=== PATIENT | female | born 1940 | race Caucasian/White ===

== ENCOUNTER 2020-03-04 20:10 | Observation (INO) | payer MEDICARE, SELFPAY ==
[2020-03-05 04:03] VITALS: BMI 33.5
[2020-03-06 04:00] VITALS: BP 165/95; PULSE 56; RESP 18; TEMP 36.5; O2SAT 94
[2020-03-06] MEDS: Omeprazole 20 MG CAPSULE.DR PO (05:28)
[2020-03-06 08:00] VITALS: BP 196/74; PULSE 56; RESP 18; TEMP 36.6; O2SAT 90
[2020-03-06] MEDS: Nystatin Powder 15 GM BOTTLE 1 APPL TOPICAL (09:00)
[2020-03-06 09:05] LABS: Ammonia 28 umol/L (13-55)
[2020-03-06] MEDS: Doxycycline Hyclate 100 MG in 0.9 % Sodium Chloride 250 ML 250 MG IV (09:07)
[2020-03-06 09:09] VITALS: BP 182/80; PULSE 73
[2020-03-06] MEDS: Aspirin 81 MG TAB.CHEW PO (09:09)
[2020-03-06] MEDS: hydrALAZINE HCl 50 MG TABLET 100 MG PO (09:09)
[2020-03-06] MEDS: Sertraline HCL 100 MG TABLET PO (09:11)
[2020-03-06] MEDS: Pregabalin 50 MG CAPSULE PO ×2 (09:11→15:04)
[2020-03-06] MEDS: 0.9 % Sodium Chloride Flush 3 ML SYRINGE 2 ML IVFLUSH (09:11)
[2020-03-06 09:12] VITALS: BP 182/80; PULSE 73
[2020-03-06] MEDS: Amiodarone HCL 200 MG TABLET PO (09:12)
[2020-03-06] MEDS: Isosorbide Mononitrate 30 MG TAB.ER.24H PO (09:12)
[2020-03-06] MEDS: Apixaban 2.5 MG TABLET PO (09:13)
--- NOTE | 2020-03-06 09:18 | PM.DS ---
DS: Providers Provider Date of admission: 03/04/20 20:10 Primary care physician: Anthony Titus MD DS: Diagnosis Discharge Diagnosis (1) Cellulitis: Status: Acute (2) UTI (urinary tract infection): Status: Acute (3) Bicytopenia: Status: Acute (4) CKD (chronic kidney disease), stage IV: Status: Acute (5) Diabetes mellitus: Status: Acute (6) CAD (coronary artery disease): Status: Acute DS: Summary Hospital Course Hospital Course: patient was admitted for cellulitis of LLE and possible UTI. she was started on ceftriaxone And doxycycline. Patient's erythema improved. She was not septic during course. Urine culture grew mixed godwin. Patient will be discharged home on 5 more days of p.o. Ceftin. Patient was also noted to have chronic bicytopenia which has not been previously worked up. She will be referred to hematology. Time Spent with Patient Time attestation: Total time spent providing and/or coordinating discharge services: 35 minutes Time spent: Greater than 30 minutes Physical Exam Vital Signs and I&O and Narrative: Vital Signs and I&O: Vital Signs Temp 97.9 F 03/06/20 08:00 Pulse 73 03/06/20 09:12 Resp 18 03/06/20 08:00 BP 182/80 H 03/06/20 09:12 Pulse Ox 90 L 03/06/20 08:00 Intake & Output 03/05/20 03/06/20 03/06/20 18:59 06:59 18:59 Output Total 400 / 400 Balance -400 / -400 Urine Output (Aver age ml/kg/hr) 0.46 Output: Output, Urine Am ount 400 / 400 Other: Urine purewick Urine Color Yellow Body Mass Index 33.5 Const: General: cooperative Resp: Auscultation: clear to auscultation bilaterally Cardio: Heart sounds: S1 normal heart sound present and S2 normal heart sound present DS: Data Data Completed and Pending Labs on day of discharge: Labs from last 24 hours 03/06/20 03/06/20 03/06/20 06:00 06:00 06:00 WBC Not Rcvd RBC Not Rcvd Hgb Not Rcvd Hct Not Rcvd MCV Not Rcvd MCH Not Rcvd MCHC Not Rcvd RDW Coeff of [place]cad[place] Not Rcvd Plt Count Not Rcvd MPV Not Rcvd Immature Gran % (Auto) Neut % (Auto) Lymph % (Auto) [place] % (Auto) Eos % (Auto) Baso % (Auto) Abs Immat Gran (auto) Absolute Lymphs (auto) Absolute Monos (auto) Absolute Eos (auto) Absolute Basos (auto) Absolute Nucleated RBC Not Rcvd Nucleated RBC % (auto) Not Rcvd Absolute Neutrophils Smear Tech's Comments PT INR APTT Sodium Not Rcvd Potassium Not Rcvd Chloride Not Rcvd Bicarbonate Not Rcvd Anion Gap Not Rcvd BUN Not Rcvd Creatinine Not Rcvd Estimated Creat Clear Not Rcvd Est GFR (Non-Af Amer) Not Rcvd POC Glucose Random Glucose Fasting Glucose Not Rcvd Lactic Acid Calcium Not Rcvd Magnesium Total Bilirubin Direct Bilirubin AST ALT Alkaline Phosphatase Ammonia Not Rcvd B-Natriuretic Peptide Total Protein Albumin Lipase Urine Color Urine Appearance Urine pH Ur Specific [place] Urine Protein Urine Glucose (UA) Urine Ketones Urine Blood Urine Nitrite Urine WBC (Auto) Urine RBC Urine WBC Ur Epithelial Cells Urine Crystals Urine Bacteria 03/05/20 03/05/20 03/05/20 21:14 16:26 09:18 WBC RBC Hgb Hct MCV MCH MCHC RDW Coeff of [place] Plt Count MPV Immature Gran % (Auto) Neut % (Auto) Lymph % (Auto) [place] % (Auto) Eos % (Auto) Baso % (Auto) Abs Immat Gran (auto) Absolute Lymphs (auto) Absolute Monos (auto) Absolute Eos (auto) Absolute Basos (auto) Absolute Nucleated RBC Nucleated RBC % (auto) Absolute Neutrophils Smear Tech's Comments PT INR APTT Sodium Potassium Chloride Bicarbonate Anion Gap BUN Creatinine Estimated Creat Clear Est GFR (Non-Af Amer) POC Glucose 115 106 117 H Random Glucose Fasting Glucose Lactic Acid Calcium Magnesium Total Bilirubin Direct Bilirubin AST ALT Alkaline Phosphatase Ammonia B-Natriuretic Peptide Total Protein Albumin Lipase Urine Color Urine Appearance Urine pH Ur Specific [place] Urine Protein Urine Glucose (UA) Urine Ketones Urine Blood Urine Nitrite Urine WBC (Auto) Urine RBC Urine WBC Ur Epithelial Cells Urine Crystals Urine Bacteria 03/05/20 03/05/20 03/04/20 05:42 05:42 21:01 WBC 5.8 RBC 2.78 L Hgb 8.0 L Hct 26.3 L MCV 94.6 MCH 28.8 MCHC 30.4 L RDW Coeff of [place]cadio 16.5 H Plt Count 97 L MPV 12.3 Immature Gran % (Auto) 0.5 H Neut % (Auto) 77.2 H Lymph % (Auto) 10.2 L [place] % (Auto) 10.4 Eos % (Auto) 1.4 Baso % (Auto) 0.3 Abs Immat Gran (auto) 0.03 Absolute Lymphs (auto) 0.6 L Absolute Monos (auto) 0.6 Absolute Eos (auto) 0.1 Absolute Basos (auto) 0.0 Absolute Nucleated RBC 0.000 Nucleated RBC % (auto) 0.0 Absolute Neutrophils 4.5 Smear Tech's Comments VERIFIED PT INR APTT Sodium 142 Potassium 3.8 Chloride 108 Bicarbonate 29 Anion Gap 9 L BUN 31 H Creatinine 1.74 H Estimated Creat Clear 22.9 Est GFR (Non-Af Amer) 28 POC Glucose 100 Random Glucose Fasting Glucose 94 Lactic Acid Calcium 8.2 L D Magnesium Total Bilirubin Direct Bilirubin AST ALT Alkaline Phosphatase Ammonia B-Natriuretic Peptide Total Protein Albumin Lipase Urine Color Urine Appearance Urine pH Ur Specific [place] Urine Protein Urine Glucose (UA) Urine Ketones Urine Blood Urine Nitrite Urine WBC (Auto) Urine RBC Urine WBC Ur Epithelial Cells Urine Crystals Urine Bacteria 03/04/20 03/04/20 03/04/20 18:27 16:17 16:17 WBC RBC Hgb Hct MCV MCH MCHC RDW Coeff of [place]cad[place] Plt Count MPV Immature Gran % (Auto) Neut % (Auto) Lymph % (Auto) [place] % (Auto) Eos % (Auto) Baso % (Auto) Abs Immat Gran (auto) Absolute Lymphs (auto) Absolute Monos (auto) Absolute Eos (auto) Absolute Basos (auto) Absolute Nucleated RBC Nucleated RBC % (auto) Absolute Neutrophils Smear Tech's Comments PT 14.3 H INR 1.2 H APTT 39.0 H Sodium Potassium Chloride Bicarbonate Anion Gap BUN Creatinine Estimated Creat Clear Est GFR (Non-Af Amer) POC Glucose Random Glucose Fasting Glucose Lactic Acid Calcium Magnesium Total Bilirubin Direct Bilirubin AST ALT Alkaline Phosphatase Ammonia B-Natriuretic Peptide 233 H Total Protein Albumin Lipase Urine Color YELLOW Urine Appearance CLEAR Urine pH 7.5 Ur Specific [place] 1.015 Urine Protein NEG Urine Glucose (UA) NEG Urine Ketones NEG Urine Blood NEG Urine Nitrite POS H Urine WBC (Auto) 2+ H Urine RBC 1-4 Urine WBC 10-14 H Ur Epithelial Cells 2+ Urine Crystals TRIPLE PHOSPHATE 2+ Urine Bacteria 2+ 03/04/20 03/04/20 03/04/20 16:17 16:17 16:17 WBC 6.3 RBC 3.22 L Hgb 9.2 L Hct 31.2 L MCV 96.9 MCH 28.6 MCHC 29.5 L RDW Coeff of [place]cadio 16.5 H Plt Count 101 L MPV 11.6 Immature Gran % (Auto) 1.0 H Neut % (Auto) 73.8 H Lymph % (Auto) 13.0 L [place] % (Auto) 10.5 Eos % (Auto) 1.4 Baso % (Auto) 0.3 Abs Immat Gran (auto) 0.06 H Absolute Lymphs (auto) 0.8 L Absolute Monos (auto) 0.7 Absolute Eos (auto) 0.1 Absolute Basos (auto) 0.0 Absolute Nucleated RBC 0.000 Nucleated RBC % (auto) 0.0 Absolute Neutrophils 4.6 Smear Tech's Comments PT INR APTT Sodium 143 Potassium 4.2 Chloride 107 Bicarbonate 31 H Anion Gap 9 L BUN 34 H Creatinine 1.83 H Estimated Creat Clear 21.8 Est GFR (Non-Af Amer) 27 POC Glucose Random Glucose 93 Fasting Glucose Lactic Acid 0.7 Calcium Magnesium 2.4 Total Bilirubin 0.5 Direct Bilirubin 0.3 AST 76 H ALT 144 H Alkaline Phosphatase 84 Ammonia B-Natriuretic Peptide Total Protein 6.1 L Albumin 3.4 L Lipase 69 Urine Color Urine Appearance Urine pH Ur Specific [place] Urine Protein Urine Glucose (UA) Urine Ketones Urine Blood Urine Nitrite Urine WBC (Auto) Urine RBC Urine WBC Ur Epithelial Cells Urine Crystals Urine Bacteria Discharge Plan Discharge Anticipated Discharge Date/Time: 03/06/20 09:09 Patient Disposition: Home Health Service Referrals: [facility] [Outside] Anthony Titus MD [Primary Care Provider] - Michelle Sawyer MD [Physician] - 2 Weeks (bicytopenia) Discharge Medications: New cefuroxime axetil 500 mg tablet 500 mg PO BID Qty: 10 RF: 0 Continued acetaminophen 650 mg Tablet 650 mg PO Q4H PRN (Reason: Headache) RF: 0 albuterol sulfate [ProAir HFA] 90 mcg/actuation Hfa Aerosol Inhaler 2 puff INHALATION Q4H PRN (Reason: Wheezing) RF: 0 amiodarone [Pacerone] 200 mg Tablet 200 mg PO DAILY RF: 0 Eliquis 2.5 mg Tablet 2.5 mg PO BID RF: 0 aspirin 81 mg Tablet,Chewable 81 mg PO DAILY RF: 0 atorvastatin [Lipitor] 20 mg Tablet 20 mg PO BEDTIME RF: 0 calcitriol 0.25 mcg Capsule 0.25 mcg PO 3XW RF: 0 cholecalciferol (vitamin D3) 50 mcg (2,000 unit) Capsule 2,000 unit PO DAILY RF: 0 ferrous sulfate [Feosol] 325 mg (65 mg iron) Tablet 325 mg PO DAILY RF: 0 fluticasone propionate 110 mcg/actuation Hfa Aerosol Inhaler 2 puff INHALATION BID RF: 0 hydralazine 100 mg Tablet 100 mg PO BID RF: 0 isosorbide mononitrate 30 mg PO DAILY RF: 0 meclizine 12.5 mg Tablet 25 mg PO DAILY PRN (Reason: Dizziness) RF: 0 memantine [Namenda XR] 21 mg Capsule,Sprinkle,Er 24hr 21 mg PO DAILY RF: 0 nitrofurantoin macrocrystal [Macrodantin] 100 mg Capsule 100 mg PO BEDTIME RF: 0 nitroglycerin [Nitrostat] 0.3 mg Tablet, Sublingual 0.3 mg SUBLINGUAL Q5M PRN (Reason: Chest Pain) RF: 0 omeprazole 20 mg Capsule,Delayed Release(Dr/Ec) 20 mg PO DAILY RF: 0 pregabalin [Lyrica] 50 mg Capsule 50 mg PO TID RF: 0 rivastigmine tartrate 6 mg Capsule 6 mg PO BID RF: 0 sennosides [senna] 8.6 mg Tablet 8.6 mg PO BEDTIME RF: 0 sertraline 100 mg Tablet 100 mg PO DAILY RF: 0 Spiriva with HandiHaler 18 mcg Capsule, W/Inhalation Device 1 cap INHALATION DAILY RF: 0 Discharge Orders: Discharge Order (Routine); Ordered 03/06/20 Ordered By: Cl Mckinney Diet: advance to your usual diet Activity on Discharge: As tolerated Visit Report Forms: Patient Portal Discharge page Care Plan Goals: recovery Health Concerns: recent tavr, cellulitis, uti Plan of Treatment: ceftin for 5 days, follow up with hematology and cardiology
[2020-03-06 09:20] LABS: Glucose, Whole Blood 83 mg/dL (60-115)
--- NOTE | 2020-03-06 09:55 | MHC.CM.PN ---
Patient is being discharged home today with resumption of services from [facility]. Family will provide transpport.
[2020-03-06 10:06] LABS: Anion Gap 9 (12-20); Blood Urea Nitrogen 29 mg/dL (9-16); Calcium 8.5 mg/dL (8.4-10.2); Carbon Dioxide 31 mmol/L (22-29); Chloride 108 mmol/L (96-108); Creatinine Clr Calc Pharmacy 21.1; Estimated Glomerular Filt Rate 26; Glucose Fasting 82 mg/dL (60-99); Potassium 4.3 mmol/l (3.3-5.1); Sodium 144 mmol/L (135-145)
[2020-03-06 10:33] LABS: Hemoglobin 8.7 g/dl (12.0-16.0); PLT CLUMP 1
[2020-03-06 10:36] LABS: Hematocrit 29.1 % (37-47); Mean Corpuscular HGB Conc 29.9 g/dl (31.0-35.0); Mean Corpuscular Hemoglobin 28.7 pg (27.0-33.0); Mean Platelet Volume 11.5 fL (9.4-12.3); Red Blood Count 3.03 X10*6/uL (4.20-5.50); Red Cell Distribution Width 16.6 % (11.0-16.0); White Blood Count 6.2 X10*3/uL (4.8-10.8)
[2020-03-06 10:37] LABS: Platelet Count 87 X10*3/uL (160-400)
[2020-03-06 11:19] LABS: Glucose, Whole Blood 123 mg/dL (60-115)
[2020-03-06 11:59] VITALS: BP 178/68; PULSE 57; RESP 18; TEMP 36.6; O2SAT 96
== END 2020-03-06 16:45 | disposition home health service (06) ==
PROVIDERS: Admitting Provider Internal Medicine; Emergency Provider Physician Assistant; PCP Internal Medicine; Visit Provider Internal Medicine
DX: L03.116 Cellulitis of left lower limb (principal); N39.0 Urinary tract infection, site not specified; M79.605 Pain in left leg; E11.22 Type 2 diabetes mellitus with diabetic chronic kidney disease; I13.0 Hypertensive heart and chronic kidney disease with heart failure and stage 1 through stage 4 chronic kidney disease, or unspecified chronic kidney disease; I50.9 Heart failure, unspecified; N18.4 Chronic kidney disease, stage 4 (severe); D61.818 Other pancytopenia; I25.10 Atherosclerotic heart disease of native coronary artery without angina pectoris; I48.91 Unspecified atrial fibrillation; K21.9 Gastro-esophageal reflux disease without esophagitis; Z23 Encounter for immunization; Z95.2 Presence of prosthetic heart valve; Z79.01 Long term (current) use of anticoagulants; Z79.02 Long term (current) use of antithrombotics/antiplatelets; Z79.82 Long term (current) use of aspirin; Z79.899 Other long term (current) drug therapy
CPT/HCPCS: 36415; 71046; 74176; 76705; 80048; 80051; 80076; 81001; 82140; 82565; 82947; 83605; 83690; 83735; 83880; 84520; 85025; 85027; 85610; 85730; 87040; 87088; 90471; 90686; 93005; 93970; 94664; 99219; 99285; J0696; J3370

== ENCOUNTER → 2020-03-10 12:05 | Outpatient (REF) | payer MEDICARE, SELFPAY ==
--- NOTE | 2020-03-10 13:00 | CA_ITS ---
Transthoracic Echocardiogram Patient (Last, First, Middle): Patricia York L Gender: Female Date of : 1940 Age: 79 Procedure Date: 03/10/2020 Procedure Type: Transthoracic Echocardiogram Location: OP Height: 149.86 cm Weight: 66.23 kg BSA: 1.61 m2 Heart Rate: bpm BP: 150 / 56 mmHg Microbiology Teacher: Avila MD: Lucia Kenny MD Symptoms: [facility] Study Quality: Fair Conclusions: - The left ventricular systolic function is normal. The visually estimated ejection fraction is between 60-65%. - Evidence suggests grade II (moderate) diastolic dysfunction. - The basal inferior segment is akinetic. - A bioprosthetic aortic valve is present. The prosthetic aortic valve appears to be functioning normally. The mean gradient is 23 mmHg. - Mild pulmonary hypertension is present. Findings Left Ventricle Normal left ventricular cavity size. There is mildly increased left ventricular wall thickness. The left ventricular systolic function is normal. The visually estimated ejection fraction is between 60-65%. There is no evidence of regional wall motion abnormalities. E/E prime ratio is >15, consistent with elevated filling pressures. Evidence suggests grade II (moderate) diastolic dysfunction. Wall Motion Rest Echo Findings The basal inferior segment is akinetic. Right Ventricle Normal right ventricular cavity size and systolic function. Atria The left atrium is severely dilated. The right atrium is normal in size. Aortic Valve A bioprosthetic aortic valve is present. The prosthetic aortic valve appears to be functioning normally. The mean gradient is 23 mmHg. There is no aortic valve regurgitation. Mitral Valve There is mild mitral annular calcification. There is trace mitral valve regurgitation. There is no mitral valve stenosis. Pulmonic Valve The pulmonic valve was not well visualized. There is trace pulmonic valve regurgitation. Tricuspid Valve Normal tricuspid valve structure. There is trace tricuspid valve regurgitation. The right ventricular systolic pressure is 42 mmHg. Mild pulmonary hypertension is present. Great Vessels The aortic annulus, sinuses of valsalva, and asc aorta are normal in size. Venous The inferior vena cava is normal in size and collapses greater than 50% with inspiration. Pericardium/Pleural There is no evidence of pericardial effusion. Prior Study Comparison Changes noted compared to prior study dated: 07/30/2019. s/p TAVR. Measurements 2D Linear Measurements RVIDd: 3.33 RVIDd Index: 2.07 IVSd: 1.26 0.6-0.9/0.6-1.0 cm LVIDd: 4.98 3.9-5.3/4.2-5.9 cm LVIDd Index: 3.09 2.4-3.2/2.2-3.1 cm/m2 LVIDs: 3.77 2.0-3.6 cm LVPWd: 1.08 0.7-1.1 cm Ao Root: 2.80 2.1-3.5 cm LA Diam: 4.60 2.7-3.8/3.0-4.0 cm LAIDs Index: 2.86 1.5-2.3 cm/m2 LV Mass: 279.47 67-162/88-224 g LV Mass Index: 173.58 43-95/49-115 g/m2 LVOT Diam: 2.00 3.0+(-)1.3 cm 2D Systolic Function EF 4C: 66.60 >55% EF 2C: 69.50 >55% EF BiP: 64.70 >55% Mitral Valve MV Pk E: 1.42 MV PK A: 1.14 MV Decel Time: 229.00 E/A: 1.20 E'Lateral: 9.57 E'Medial: 4.25 E/E' Med: 33.40 E/E' Lat: 14.80 PHT: 67.00 MVA PHT: 3.28 Decel [place]: 6.21 Aortic Valve AoV Pk Yovany: 3.49 AoV Mn Yovany: 2.67 AoV VTI: 0.88 Aov Mn Grad: 23.00 RADHA Cont.VTI: 1.19 LVOT LVOT Pk Yovany: 1.25 LVOT Mn Yovany: 0.91 LVOT VTI: 0.33 LVOT Pk Grad: 6.00 LVOT Mn Grad: 4.00 LVOT Diam: 2.00 LVOT Area: 3.14 Diastolic Function MV Pk E: 1.42 MV Pk A: 1.14 E/A: 1.20 E'Medial: 4.25 E/E' Med: 33.40 E' Laterial: 9.57 E/E' Lat: 14.80 Tricuspid Valve RA Press: 3.00 RVSP: 42.00 Great Vessels Aorta Ao Root-2D: 2.80 2.0-3.7 cm Ao Asc: 3.50 2.1-3.4 cm Ao Arch: 2.90 Updated in Other Vendor System with Status of Final John Bui MD electronically signed on 03/11/2020 4:28:31 PM with status of Final
== END ==
LOC: HO.CARD 12:05
PROVIDERS: PCP Internal Medicine; Visit Provider Internal Medicine Cardiovascular Disease
DX: Z95.2 Presence of prosthetic heart valve (principal)
CPT/HCPCS: 93306

== ENCOUNTER → 2020-04-17 15:17 | Outpatient (BNVA) | payer MEDICARE, SELFPAY | PROVIDERS: PCP Internal Medicine; Visit Provider Internal Medicine Cardiovascular Disease | DX: I50.30 Unspecified diastolic (congestive) heart failure (principal); Z95.2 Presence of prosthetic heart valve; I48.0 Paroxysmal atrial fibrillation; I25.10 Atherosclerotic heart disease of native coronary artery without angina pectoris; E11.22 Type 2 diabetes mellitus with diabetic chronic kidney disease; N18.4 Chronic kidney disease, stage 4 (severe); Z79.4 Long term (current) use of insulin; J44.9 Chronic obstructive pulmonary disease, unspecified | CPT/HCPCS: Q3014 ==

== ENCOUNTER → 2020-04-23 14:15 | Outpatient (BNVA) | payer MEDICARE, SELFPAY | PROVIDERS: PCP Internal Medicine; Visit Provider Orthopaedic Surgery | DX: M17.11 Unilateral primary osteoarthritis, right knee (principal); Z96.652 Presence of left artificial knee joint | CPT/HCPCS: 20610; 99212; J1040 ==

== ENCOUNTER 2020-05-08 10:17 | Outpatient (REF) | payer MEDICARE, SELFPAY | END 2020-05-08 10:18 | disposition home or self-care (01) | LOC: HO.LAB 10:17 | PROVIDERS: PCP Internal Medicine; Visit Provider Internal Medicine | DX: Z20.828 Contact with and (suspected) exposure to other viral communicable diseases (principal) | CPT/HCPCS: C9803; U0003 ==

== ENCOUNTER → 2020-06-10 14:47 | Outpatient (BNVA) | payer MEDICARE, SELFPAY | PROVIDERS: PCP Internal Medicine; Visit Provider Internal Medicine | DX: J44.9 Chronic obstructive pulmonary disease, unspecified (principal); J45.909 Unspecified asthma, uncomplicated | CPT/HCPCS: 99212 ==

== ENCOUNTER 2020-07-12 10:15 | Outpatient (REF) | payer MEDICARE, SELFPAY ==
[2020-07-12 11:14] LABS: Basophils Percent Auto 0.7 % (0-2); Eosinophils Absolute Auto 0.1 X10*3/uL (0.0-0.4); Eosinophils Percent Auto 0.9 % (0-4); Hematocrit 33.8 % (37-47); Hemoglobin 10.2 g/dl (12.0-16.0); Imm Gran Abs Auto 0.03 X10*3/uL (0.00-0.03); Imm Gran Pct Auto 0.5 % (0.0-0.4); Lymphocytes Absolute Auto 0.7 X10*3/uL (1.2-4.9); Lymphocytes Percent Auto 12.2 % (20-40); MANUAL DIFF FLAG SCAN; Mean Corpuscular HGB Conc 30.2 g/dl (31.0-35.0); Mean Corpuscular Hemoglobin 29.2 pg (27.0-33.0); Mean Corpuscular Volume 96.8 fL (80-98); Mean Platelet Volume 12.6 fL (9.4-12.3); Monocytes Absolute Auto 0.6 X10*3/uL (0.1-1.2); Monocytes Percent Auto 11.1 % (2-11); Neutrophils Absolute Auto 4.2 X10*3/uL (2.0-8.3); Neutrophils Percent Auto 74.6 % (45-73); Red Blood Count 3.49 X10*6/uL (4.20-5.50); Red Cell Distribution Width 16.6 % (11.0-16.0); SCAN SMEAR FLAG 1; White Blood Count 5.6 X10*3/uL (4.8-10.8)
[2020-07-12 11:18] LABS: Platelet Count 98 X10*3/uL (160-400)
[2020-07-12 11:40] LABS: SLIDE REVIEW VERIFIED
[2020-07-12 11:44] LABS: Albumin Level 3.6 g/dL (3.5-5.0); Anion Gap 11 (12-20); Blood Urea Nitrogen 28 mg/dL (9-16); Calcium 8.9 mg/dL (8.4-10.2); Carbon Dioxide 31 mmol/L (22-29); Chloride 108 mmol/L (96-108); Estimated Glomerular Filt Rate 28; Iron 178 mcg/dL (30-160); Magnesium 2.2 mg/dL (1.6-2.6); Percent Iron Saturation 47 % (15-50); Phosphorus 3.9 mg/dL (2.7-4.5); Potassium 4.7 mmol/L (3.3-5.1); Sodium 145 mmol/L (135-145); Total Iron Binding Capacity 378 mcg/dL (228-428); Unsaturated Iron Binding 200 ug/dL
[2020-07-12 12:05] LABS: Ferritin 26 ng/mL (10-250)
[2020-07-14 18:37] LABS: Calcium (PTHI) 9.4 mg/dL (8.6-10.4); PTHI 141 pg/mL (14-64)
== END 2020-07-12 10:16 | disposition home or self-care (01) ==
LOC: HO.LAB 10:15
PROVIDERS: PCP Internal Medicine; Visit Provider Internal Medicine Hypertension Specialist
DX: I12.9 Hypertensive chronic kidney disease with stage 1 through stage 4 chronic kidney disease, or unspecified chronic kidney disease (principal); N18.9 Chronic kidney disease, unspecified
CPT/HCPCS: 36415; 80051; 82040; 82310; 82565; 82728; 83540; 83735; 83970; 84100; 84520; 85025

== ENCOUNTER 2020-07-23 14:17 | Outpatient (REF) | payer MEDICARE, SELFPAY ==
--- NOTE | ~2020-07-23 | US_ITS ---
EXAMINATION: US VENOUS ULTRASOUND WITH DOPPLER LOWER EXTREMITY, RIGHT CLINICAL INFORMATION: Swelling. system technologist indicates history of distal thigh bruising post fall COMPARISON: Previous exam February 2020 TECHNIQUE: Ultrasound of the deep veins is performed from the hip to the calf with compression sonography and color and pulse Doppler assessment. Spectral analysis with color-flow imaging is performed. FINDINGS: There is normal venous compression and respiratory variation and augmented flow. The visualized common femoral vein, superficial femoral vein, profunda femoral vein, popliteal vein, and the trifurcation region shows no evidence of deep venous thrombosis. There is a edema of the calf. There is a new hypoechoic lesion in the medial lower thigh just above the knee measuring 7.3 x 3.6 x 7 cm. This appears avascular partially solid partially complex cystic. This is new from previous exam February 2020. Given history of fall and bruising indicated by the tissue technologist this probably represents a hematoma. There is no popliteal fossa cyst. . US/US venous duplex LE RT IMPRESSION: No DVT demonstrated in the right lower extremity. Soft tissue edema of the calf. Probable soft tissue hematoma of the right medial distal thigh just above the knee measuring 7.3 x 3.6 x 7 cm.
[2020-07-23 14:50] LABS: Hemoglobin 7.7 g/dl (12.0-16.0); Mean Corpuscular HGB Conc 30.8 g/dl (31.0-35.0); Mean Corpuscular Hemoglobin 29.5 pg (27.0-33.0); Mean Corpuscular Volume 95.8 fL (80-98); Red Blood Count 2.61 X10*6/uL (4.20-5.50); White Blood Count 4.7 X10*3/uL (4.8-10.8)
[2020-07-23 15:10] LABS: Mean Platelet Volume 12.8 fL (9.4-12.3)
[2020-07-23 15:11] LABS: Platelet Count 33 X10*3/uL (160-400)
[2020-07-23 15:13] LABS: Anion Gap 10 (12-20); Blood Urea Nitrogen 33 mg/dL (9-16); Calcium 8.3 mg/dL (8.4-10.2); Carbon Dioxide 28 mmol/L (22-29); Chloride 105 mmol/L (96-108); Estimated Glomerular Filt Rate 22; Glucose Random 133 mg/dL (60-115); Iron 14 mcg/dL (30-160); Percent Iron Saturation 5 % (15-50); Potassium 4.3 mmol/L (3.3-5.1); Sodium 139 mmol/L (135-145); Total Iron Binding Capacity 279 mcg/dL (228-428); Unsaturated Iron Binding 265 ug/dL
[2020-07-23 15:35] LABS: Ferritin 142 ng/mL (10-250)
== END 2020-07-23 14:18 | disposition home or self-care (01) ==
LOC: HO.US 14:17
PROVIDERS: Internal Medicine; PCP Internal Medicine; Visit Provider Physician Assistant
DX: Z13.89 Encounter for screening for other disorder (principal)
CPT/HCPCS: 36415; 80048; 82728; 83540; 85027; 93971

== ENCOUNTER 2020-07-23 18:24 | Inpatient (IN) | payer MEDICARE, SELFPAY ==
--- NOTE | ~2020-07-23 | XR_ITS ---
EXAMINATION: XR FEMUR, RIGHT CLINICAL INFORMATION: Fall COMPARISON: Right knee radiograph 10/11/2017 TECHNIQUE: AP and lateral views of the right femur were obtained. FINDINGS: No radiographic evidence of acute fracture or subluxation. Marked tricompartmental degenerative changes of the right knee have progressed since the prior study from 2018. No knee joint effusion appreciated. Vascular calcifications. XR/XR femur RT 2V IMPRESSION: 1. No radiographic evidence of acute fracture or subluxation involving the right femur. 2. Marked progressive tricompartmental degenerative changes of the right knee.
--- NOTE | ~2020-07-23 | CT_ITS ---
EXAMINATION: NONCONTRAST HEAD CT NONCONTRAST CERVICAL SPINE CT INDICATION INFORMATION: Unwitnessed fall COMPARISON: 08/06/2019 TECHNIQUE: Separate noncontrast CT examinations of the head and cervical spine were performed. Coronal and sagittal images were created for each examination at the technologist workstation. This CT examination was performed using dose optimization techniques as appropriate, variously including the following: *Automated exposure control *Adjustment of mA and/or kV according to patient size (this includes techniques or standardized protocols for targeted exams where dose is matched to indication/reason for exam; i.e. extremities or head) *Use of iterative reconstruction technique DLP: 1107 mGy-cm FINDINGS: Head: There is no evidence of acute intracranial hemorrhage or territorial infarction. No abnormal mass effect or midline shift is seen. Jeter to white matter differentiation is well preserved. No extra-axial fluid collections are identified. No hydrocephalus. Proportional prominence of the ventricles and sulcal spaces is consistent with moderate volume loss. Patchy periventricular and deep white matter hypoattenuation is consistent with moderate small vessel ischemic changes. No acute osseous or soft tissue abnormality. There is complete opacification of the right maxillary sinus. The mastoid air cells and visualized portions of the paranasal sinuses are otherwise well aerated. Cervical spine: There is anatomic alignment of the vertebral bodies and posterior elements. The atlantoaxial and atlantooccipital articulations are intact. Vertebral body heights are maintained. There is multilevel intervertebral disc space narrowing with endplate osteophyte formation and facet arthropathy. Healed fracture at the posterior aspect of the C2 vertebral body. No evidence of acute fracture. No prevertebral soft tissue swelling. Visualized portions of the lung apices are unremarkable. The thyroid gland is unremarkable. CT/CT cervical spine wo con IMPRESSION: 1. No acute intracranial finding. 2. No acute fracture or malalignment of the cervical spine. Mild degenerative change.
--- NOTE | ~2020-07-23 | CT_ITS ---
EXAMINATION: CT FEMUR WITHOUT CONTRAST, RIGHT CLINICAL INFORMATION: Hematoma COMPARISON: Right femur x-ray 07/23/2020 and right lower extremity venous ultrasound 07/23/2020 TECHNIQUE: Axial images through the right thigh without contrast. Sagittal and coronal reconstructions on the technologist workstation were performed. This CT examination was performed using dose optimization techniques as appropriate, variously including the following: *Automated exposure control *Adjustment of mA and/or kV according to patient size (this includes techniques or standardized protocols for targeted exams where dose is matched to indication/reason for exam; i.e. extremities or head) *Use of iterative reconstruction technique DLP: 541 mGy-cm FINDINGS: There is a high attenuation soft tissue mass in the subcutaneous medial thigh just above the knee. This measures 7.5 x 3.8 x 4.9 cm in sagittal AP and transverse dimension. There is a second slightly more superior similar high attenuation soft tissue mass measuring 3 x 1.7 x 1.6 cm in dimension. There is diffuse subcutaneous edema of the right thigh. Appearance is suggestive of a hematoma. There is evidence of atherosclerotic disease. There is severe arthritis at the right knee joint. There is a sclerotic 2 cm lesion in the lateral femoral condyle. This has punctate high attenuation foci suggestive of calcified matrix is may represent an enchondroma there is no knee joint effusion. There is mild arthritis at the right hip joint with joint space narrowing and small osteophytes. No right hip joint effusion is seen. Visualized pelvis is unremarkable. There are degenerative changes of visualized lower lumbar spine. There is a left knee prosthesis. There is stool in the distal colon. CT/CT femur RT wo con IMPRESSION: High attenuation soft tissue mass in the subcutaneous fat of the right distal medial thigh just above the knee suggestive of a hematoma. There is diffuse stranding of the subcutaneous fat and some overlying skin thickening. Severe arthritis at the knee joint and mild arthritis at the right hip joint. 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
--- NOTE | ~2020-07-23 | US_ITS ---
EXAMINATION: US ABDOMEN COMPLETE CLINICAL INFORMATION: Elevated LFTs. COMPARISON: Ultrasound abdomen limited and CT abdomen and pelvis 03/04/2020. Renal ultrasound 01/30/2012. TECHNIQUE: Real-time imaging of the abdominal viscera. FINDINGS: PANCREAS: The head of the pancreas is normal-appearing. The body and tail are not well visualized due to bowel gas. ABDOMINAL AORTA: There is evidence of atherosclerotic disease of the dominant aorta. No aneurysm is seen. INFERIOR VENA CAVA: Visualized portions are normal. LIVER: The liver is normal in size. The liver contour is normal. Liver echotexture may be slightly increased. No focal hepatic lesion. There is no intrahepatic biliary duct dilatation seen. GALLBLADDER: The gallbladder is upper normal in size. There are gallstones in the gallbladder. Gallbladder wall is thickened measuring 0.5 cm. There is gallbladder wall edema. The lead medical technologist reports the patient is tender over the gallbladder. COMMON BILE DUCT: Normal in caliber measuring 0.4 cm in diameter. RIGHT KIDNEY: Normal. No hydronephrosis. No renal calculi or focal parenchymal lesions. The kidney measures 8.7 cm in maximum dimension. LEFT KIDNEY: There echogenic densities with twinkle artifact suggestive of stones measuring 4 mm in the mid and lower pole. No hydronephrosis or focal parenchymal lesions. The kidney measures 10.0 cm in maximum dimension. SPLEEN: Upper normal in size. The spleen measures 12.9 cm in maximum dimension. FREE FLUID: None. US/US abdomen complete IMPRESSION: Upper normal-size gallbladder with gallstones. Gallbladder wall thickening and edema. The lead medical technologist reports the patient is tender over the gallbladder. Ultrasound appearance is concerning for acute cholecystitis. Slightly echogenic liver. Left renal stones. Limited visualization of the pancreas.
[2020-07-23 18:36] VITALS: BP 133/54; PULSE 73; RESP 18; TEMP 36.4; O2SAT 95; BMI 32.3
--- NOTE | 2020-07-23 18:41 | ED_ITS ---
HPI - General Adult General Chief complaint: Fall Stated complaint: Abnormal labs Time Seen by Provider: 07/23/20 18:41 Source: patient Mode of arrival: ambulatory Limitations: no limitations History of Present Illness HPI narrative: Patient with history of atrial fibrillation on Eliquis status post aortic valve replacement chronic thrombocytopenia apparently fell 4 days ago while in the kitchen patient does not know why she fell denies any dizziness no palpitation no chest pain no loss of consciousness no seizure patient had hematoma of the right thigh after the fall no other injuries ambulatory as such seen her doctor today who did the labs and noticed that her hemoglobin dropped to 7.7 from 10.2 on 07/12 also platelets dropped from 98k to 33k patient does have AFib and is paroxysmal and whenever she gets it in atrial fibrillation she feels it and at this time she did not feel any atrial fibrillation no palpitation patient had ultrasound done as outpatient which showed 7 x 7 cm hematoma on medial aspect of right thigh patient denied any melena no hematuria no abdominal pain patient was on chronic iron treatment patient been feeling weak otherwise no shortness of breath or chest pain Related Data Home Medications Medication Instructions Recorded Confirmed acetaminophen 650 mg PO Q4H PRN 03/05/20 07/23/20 calcitriol 0.25 mcg PO 3XW 03/05/20 07/23/20 cholecalciferol (vitamin D3) 2,000 unit PO DAILY 03/05/20 07/23/20 memantine [Namenda XR] 21 mg PO DAILY 03/05/20 07/23/20 nitroglycerin [Nitrostat] 0.4 mg SUBLINGUAL Q5M PRN 03/05/20 07/23/20 rivastigmine tartrate 6 mg PO BID 03/05/20 07/23/20 sennosides [senna] 8.6 mg PO BEDTIME 03/05/20 07/23/20 sertraline 100 mg PO DAILY 03/05/20 07/23/20 albuterol sulfate 90 mcg/actuation 2 puff INHALATION Q6H PRN g 04/06/20 07/23/20 aerosol inhaler apixaban 2.5 mg tablet 2.5 mg PO BID 04/23/20 07/23/20 amlodipine 5 mg tablet 5 mg PO DAILY 05/09/20 07/23/20 nitrofurantoin macrocrystal 100 mg 100 mg PO DAILY 05/09/20 07/23/20 capsule meclizine 25 mg PO BID 05/19/20 07/23/20 umeclidinium 62.5 mcg/actuation 1 inh INHALATION BEDTIME 06/10/20 07/23/20 blister powder for inhalation ferrous sulfate 325 mg (65 mg 325 mg PO BID tab 07/23/20 07/23/20 iron) tablet Previous Rx's Medication Instructions Recorded amiodarone 200 mg tablet 200 mg PO DAILY #90 tab 03/24/20 hydralazine 100 mg tablet 100 mg PO BID #180 tab 04/07/20 isosorbide mononitrate 30 mg 30 mg PO DAILY #90 tab 04/09/20 tablet,extended release 24 hr pregabalin 50 mg capsule 50 mg PO TID 90 Days #270 cap 04/15/20 atorvastatin 20 mg tablet 20 mg PO DAILY #90 tab 05/25/20 omeprazole 20 mg capsule,delayed 20 mg PO DAILY #90 cap 07/04/20 release Allergies Allergy/AdvReac Type Severity Reaction Status Date / Time Penicillins [PENICILLINS] Allergy Severe HIVES/SWELL Verified 07/23/20 13:39 ING Review of Systems Review of Systems: Constitutional : No Weight loss, No Fever, No Chills ENT/Mouth : No sore throat, No Rhinorrhea Eyes: No Eye Pain, No Swelling Cardiovascular : No Chest Pain, no palpitations Respiratory : No Cough, No Sputum, no shortness of breath Gastrointestinal : no Nausea, No Vomiting, No Diarrhea, No abdominal Pain, no black stools Genitourinary : No Dysuria, No Urinary Frequency Musculoskeletal : No joint pain, No Myalgias, No Joint Swelling Skin : No Skin Lesions, No rash Neuro : No Weakness, No Numbness, No Dizziness, No Headache Psych : No Anxiety/Panic, No Depression Heme/Lymph: No Bruising, No Lymphadenopathy Endocrine : No Polyuria, No Polydipsia All other systems reviewed and are negative PMFSH Past Medical History Medical History (HFpEF) heart failure with preserved ejection fraction Afib Anemia Anxiety Aortic valve stenosis Asthma Basal cell carcinoma Benign essential hypertension Chronic kidney disease, stage 4 (severe) COPD (chronic obstructive pulmonary disease) Diabetic polyneuropathy Fracture Melanoma Mild cognitive impairment with memory loss Obesity (BMI 30-39.9) Paroxysmal atrial fibrillation Pure hypercholesterolemia Thrombocytopenia Type 2 diabetes mellitus with diabetic chronic kidney disease Surgical History History of cardiac catheterization History of colonoscopy History of eye surgery 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) Stented coronary artery Family History Family History Father Medical history unknown Mother Acute myeloid leukemia Cancer Maternal Grandmother Myocardial infarction Brother Myocardial infarction Sister Brain aneurysm Social History Social History Alcohol intake: never Smoking Status: Never smoker Tobacco Type: Cigarette Packs Per Day: 0.5 Years Smoked: 19 Smoked in Last 30 Days: No Use of substances other than those prescribed or required for medical reasons: No Advance Directives: No Advance Directives Information Provided: No Physical Exam Vital Signs: Vital Signs: Last Vital Signs Temp 98.8 F 07/23/20 22:00 Pulse 69 07/23/20 22:00 Resp 16 07/23/20 22:00 BP 152/96 H 07/23/20 20:00 Pulse Ox 94 07/23/20 22:00 Body Mass Index 32.3 Const: General: comfortable and no acute distress Orientation/cons ciousness: patient oriented x3 Limitations: no limitations HENMT: Head: Yes normocephalic and Yes atraumatic Ears: hearing grossly n ormal bilaterally General nose exam: Normal external nose present Mouth: Normal oral and palatal mucosa present Eyes: General: appearance normal, both eyes and all related structures Neck: Neck: Yes normal visual inspection, Yes full ROM, No tender and Yes no JVD Chest: Chest palpation & inspection: normal palpation of entire chest wall Resp: Effort & Inspection: normal respiratory effort Auscultation: clear to auscultation bilaterally, no crackles, no rales and no rhonchi Cardio: Palpation: normal PMI Rate: regular rate Rhythm: regular rhythm Heart sounds: S1 normal heart sound present and S2 normal heart sound present Peripheral pulses: Peripheral pulses 2+ throughout GI: Inspection: Yes normal to inspection Palpation (GI): Soft to palpation, nontender and no guarding Auscultation: normal bowel sounds Rectal Exam - Female: visual inspection normal, normal sphincter tone, heme positive stool and other (Dark color stool) : General: Yes no CVA tenderness Back/Spine/Pelvis: Back: no CVA tenderness Cervical Spine: No step off deformity Thoracic/Lumbar Spine: No pain with thoraco-lumbar ROM, No thoracic spinal tenderness and No lumbar spinal tenderness Skin: General skin exam: ecchymosis (Right thigh) Neuro: General: patient oriented x3, moves all extremities and no focal motor deficits Extrem: Upper/lower leg/hip images: 1. Huge hematoma neurovascular intact normal popliteal flow good range of right knee movements no knee effusion Medical Decision Making MDM Narrative Medical decision making narrative: Patient with right thigh hematoma with significant drop in hematocrit on Eliquis workup showed decrease in platelet counts also etiology not very clear also rectal was positive for guaiac but brown stool no fresh blood on the finger patient vitals are stable no signs of compartment syndrome in right thigh also has elevated creatinine to 2.16 from 1.74 on 07/12 for blood transfusion hold Eliquis for now Lab Data Lab results reviewed: Yes I reviewed the patient's lab results. Labs: Lab Results 07/23/20 07/23/20 07/23/20 Range/Units 18:49 19:23 19:23 Troponin I High Sens 1388.5 H (<3.5-17.0) ng/L Stool Occult Blood POS (NEG) COVID-19 ([facility]ISHA) (Negative) COVID-19 Clin Com Blood Type A Positive Antibody Screen POSITIVE Crossmatch See Detail Crossmatch (AHG) See Detail 07/23/20 Range/Units 19:26 Troponin I High Sens (<3.5-17.0) ng/L Stool Occult Blood (NEG) COVID-19 ([facility]ISHA) Negative (Negative) COVID-19 Clin Com See Note Blood Type Antibody Screen Crossmatch Crossmatch (AHG) ECG Data Attestation: I personally reviewed and interpreted this ECG as follows: Interpretation: Normal sinus rhythm with first-degree heart block poor progression of R-waves nonspecific ST T wave changes in lateral leads no acute ischemia Discharge Plan Discharge Clinical Impression: Thrombocytopenia, Acute GI bleeding Anemia Qualifiers: Anemia type: unspecified type Qualified Code(s): D64.9 - Anemia, unspecified Hematoma of right thigh Qualifiers: Encounter type: initial encounter Qualified Code(s): S70.11XA - Contusion of right thigh, initial encounter Acute renal failure Qualifiers: Acute renal failure type: with acute tubular necrosis Qualified Code(s): N17.0 - Acute kidney failure with tubular necrosis Patient Disposition: Admitted As Inpatient
[2020-07-23 18:57] LABS: OBS Int Ctl Valid YES; OBS1 POS (NEG)
--- NOTE | 2020-07-23 18:57 | ECG_ITS ---
Test Reason : FALL Blood Pressure : / mmHG Vent. Rate : 061 BPM Atrial Rate : 061 BPM P-R Int : 240 ms QRS Dur : 110 ms QT Int : 468 ms P-R-T Axes : 062 -14 100 degrees QTc Int : 471 ms Sinus rhythm with 1st degree A-V block Anteroseptal infarct (cited on or before 24-JUN-2014) ST & T wave abnormality, consider lateral ischemia Abnormal ECG When compared with ECG of 04-MAR-2020 15:45, No significant change was found Referred By: Malachi Mcmillan Electronically Signed By:Kenn Gamez
[2020-07-23 19:53] LABS: COVID-19 Test Negative (Negative); IDNOW Serial# 9DD0AD1C
[2020-07-23 20:00] VITALS: BP 152/96; PULSE 70; RESP 16; TEMP 36.8; O2SAT 95
[2020-07-23 20:12] LABS: Troponin-I High Sensitivity 1388.5 ng/L (<3.5-17.0)
[2020-07-23 21:00] VITALS: PULSE 68; RESP 16
[2020-07-23 22:00] VITALS: PULSE 69; RESP 16; TEMP 37.1; O2SAT 94
--- NOTE | 2020-07-23 23:13 | PC.NURSE ---
HOSPITALIST AT BEDSIDE FOR INITIAL EVALUATION O PATIENT.
[2020-07-24] VITALS (28 sets, daily range): BP systolic 121–171; BP diastolic 43–78; PULSE 55–88; RESP 12–20; TEMP 36.4–37; O2SAT 92–95
[2020-07-24] MEDS: Pantoprazole Sodium 40 MG/10 ML VIAL IVPUSH ×3 (00:31→17:39)
--- NOTE | 2020-07-24 00:44 | PM.IMHP ---
History of Present Illness Date of Service: 07/24/20 Chief Complaint: Thigh hematoma 79-year-old female past history of hypertension hyperlipidemia, diabetes, CKD, COPD, paroxysmal AFib on Eliquis, chronic thrombocytopenia, history of aortic valve replacement, anxiety, depression, diastolic CHF presented to the hospital with a chief complaint of thigh hematoma. On Tuesday she had a fall in the kitchen; denies any loss of consciousness or head strike. Denies any lightheadedness dizziness or chest pain at time of the event. Today she went to see the PCP where she had blood drawn and noted to have drop in hemoglobin to 7.7 from 10 about 2 weeks ago; subsequently sent to the hospital for further evaluation. Patient complains of pain in the thigh on the medial side. Denies any numbness tingling or paresthesias in the lower extremities; denies fever chills cough. Denies any chest pain at the time of my interview. Denies any lightheadedness or dizziness. Denies any neck pain back pain or hip pain. Patient mentions that she has been compliant with her home Eliquis and last dose was prior to coming to the hospital. Review of all other systems is negative except mentioned above ER course: For ER team patient noted to have a hematoma on the medial side of the thigh; hemoglobin of 7.7 ultrasound showed no evidence of DVT noted [id number] cm hematoma. Also patient was noted to have guaiac positive. And elevated troponin, EKG nonischemic and patient denied any chest pain. Follow-up troponin pending. Admitted to the hospital for further management. [facility] Medical History (HFpEF) heart failure with preserved ejection fraction Afib Anemia Anxiety Aortic valve stenosis Asthma Basal cell carcinoma Benign essential hypertension Chronic kidney disease, stage 4 (severe) COPD (chronic obstructive pulmonary disease) Diabetic polyneuropathy Fracture Melanoma Mild cognitive impairment with memory loss Obesity (BMI 30-39.9) Paroxysmal atrial fibrillation Pure hypercholesterolemia Thrombocytopenia Type 2 diabetes mellitus with diabetic chronic kidney disease Family History Father Medical history unknown Mother Acute myeloid leukemia Cancer Maternal Grandmother Myocardial infarction Brother Myocardial infarction Sister Brain aneurysm Surgical History History of cardiac catheterization History of colonoscopy History of eye surgery 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) Stented coronary artery Social History Alcohol intake: never Smoking Status: Never smoker Tobacco Type: Cigarette Packs Per Day: 0.5 Years Smoked: 19 Smoked in Last 30 Days: No Use of substances other than those prescribed or required for medical reasons: No Advance Directives: No Advance Directives Information Provided: No Meds Allergies Allergy/AdvReac Type Severity Reaction Status Date / Time Penicillins [PENICILLINS] Allergy Severe HIVES/SWELL Verified 07/23/20 13:39 ING Active Medications: Current Medications Generic Name Dose Route Start Last Admin Trade Name Freq PRN Reason Stop Dose Admin Acetaminophen 650 mg 07/24/20 00:32 Acetaminophen Supp 650 Mg Supp.Rect NJ Q6H PRN Pain, Mild (Pain Scale 1-3) Amiodarone HCl 200 mg 07/24/20 09:00 Amiodarone Hcl 200 Mg Tablet PO DAILY [facility] Atorvastatin Calcium 20 mg 07/24/20 21:00 Atorvastatin Calcium 20 Mg Tablet PO BEDTIME [facility] Calcitriol 0.25 mcg 07/24/20 00:45 Calcitriol 0.25 Mcg Capsule PO 3XW [facility] Hydralazine HCl 100 mg 07/24/20 09:00 Hydralazine Hcl 50 Mg Tablet PO BID [facility] Insulin Human Lispro 0 unit 07/24/20 07:30 Insulin Lispro 100 Unit/Ml 3 Ml Vial SUBCUT QIDACHS [facility] Isosorbide Mononitrate 30 mg 07/24/20 09:00 Isosorbide Mononitrate 30 Mg Tab.Er.24h PO DAILY [facility] Protocol Meclizine HCl 25 mg 07/24/20 09:00 Meclizine Hcl 12.5 Mg Tablet PO BID [facility] Non-Formulary Medication 6 mg 07/24/20 09:00 Rivastigmine Tartrate PO BID [facility] Non-Formulary Medication 1 inhalation 07/24/20 21:00 Umeclidinium [Incruse Ellipta] INHALE BEDTIME [facility] Non-Formulary Medication 325 mg 07/24/20 09:00 Ferrous Sulfate [Feosol] PO BID [facility] Omeprazole 20 mg 07/24/20 09:00 Omeprazole 20 Mg Capsule.Dr PO DAILY [facility] Pregabalin 50 mg 07/24/20 09:00 Pregabalin 50 Mg Capsule PO TID [facility] Senna 8.6 mg 07/24/20 21:00 Sennosides 8.6 Mg Tablet PO BEDTIME [facility] Sertraline HCl 100 mg 07/24/20 09:00 Sertraline Hcl 100 Mg Tablet PO DAILY [facility] Sodium Chloride 3 ml 07/24/20 08:00 0.9 % Sodium Chloride Flush 3 Ml Syringe IVFLUSH QSHIFT [facility] Vitamin D mcg 07/24/20 09:00 Cholecalciferol (Vitamin D3) 25 Mcg Tablet PO DAILY [facility] Home Medications Medication Instructions Recorded Confirmed Last Taken Type acetaminophen 650 mg PO Q4H PRN 03/05/20 07/23/20 Unknown History calcitriol 0.25 mcg PO 3XW 03/05/20 07/23/20 Unknown History cholecalciferol (vitamin D3) 2,000 unit PO DAILY 03/05/20 07/23/20 03/04/20 History memantine [Namenda XR] 21 mg PO DAILY 03/05/20 07/23/20 03/04/20 History nitroglycerin [Nitrostat] 0.4 mg SUBLINGUAL Q5M PRN 03/05/20 07/23/20 Unknown History rivastigmine tartrate 6 mg PO BID 03/05/20 07/23/20 03/04/20 History sennosides [senna] 8.6 mg PO BEDTIME 03/05/20 07/23/20 03/03/20 History sertraline 100 mg PO DAILY 03/05/20 07/23/20 03/04/20 History albuterol sulfate 90 mcg/actuation 2 puff INHALATION Q6H PRN g 04/06/20 07/23/20 Unknown History aerosol inhaler apixaban 2.5 mg tablet 2.5 mg PO BID 04/23/20 07/23/20 Unknown History amlodipine 5 mg tablet 5 mg PO DAILY 05/09/20 07/23/20 Unknown History nitrofurantoin macrocrystal 100 mg 100 mg PO DAILY 05/09/20 07/23/20 Unknown History capsule meclizine 25 mg PO BID 05/19/20 07/23/20 Unknown History umeclidinium 62.5 mcg/actuation 1 inh INHALATION BEDTIME 06/10/20 07/23/20 Unknown History blister powder for inhalation ferrous sulfate 325 mg (65 mg 325 mg PO BID tab 07/23/20 07/23/20 Unknown History iron) tablet Physical Exam Vital Signs and Narrative: Vital Signs: Last Vital Signs Temp 98.0 F 07/24/20 00:00 Pulse 59 07/24/20 00:00 Resp 16 07/24/20 00:00 BP 127/76 07/24/20 00:00 Pulse Ox 94 07/24/20 00:00 Body Mass Index 32.3 Gen: Appears be in no acute distress HEENT: NCAT, Moist mucosa. Pulmonary: Vesicular breath sounds, fair air entry CVS: Normal S1-S2 Abdomen: BS+, Soft, Nontender Extremities: Warm well perfused; tender on the medial side of the right thigh and ecchymosis noticed. Anterior lateral and posterior sites appears soft. Peripheral pulses palpable. Neuro: Alert and awake. Results Labs Labs: Laboratory Results - last 24 hr 07/23/20 07/23/20 07/23/20 18:49 19:23 19:23 Troponin I High Sens 1388.5 H Stool Occult Blood POS COVID-19 ([facility]) COVID-19 Clin Com Blood Type A Positive Antibody Screen POSITIVE Antibody Identification Anti-c Antigen Identification c Antigen - NEGATIVE Crossmatch See Detail Crossmatch (AHG) See Detail 07/23/20 19:26 Troponin I High Sens Stool Occult Blood COVID-19 ([facility]) Negative COVID-19 Clin Com See Note Blood Type Antibody Screen Antibody Identification Antigen Identification Crossmatch Crossmatch (AHG) Imaging Radiologist's Impressions: Impressions Femur X-Ray 07/23/20 19:15 IMPRESSION: 1. No radiographic evidence of acute fracture or subluxation involving the right femur. 2. Marked progressive tricompartmental degenerative changes of the right knee. Assessment and Plan (1) Hematoma of right thigh: Qualifiers: Encounter type: initial encounter Qualified Code(s): S70.11XA - Contusion of right thigh, initial encounter Status: Acute 79-year-old female with a past medical history of hypertension, hyperlipidemia, diabetes, AFib on Eliquis, history of prior tick stenosis status post TAVR, diastolic heart failure, diabetic neuropathy, anxiety, depression, COPD, a anemia presented to the hospital with a chief complaint of fall. Fall: Mechanical in nature. Denies any loss of consciousness. PT/OT. Fall precautions.UA pending Right thigh hematoma: Hematoma noted on the medial side of the thigh; other areas of the thigh appears soft; patient denies paresthesias; peripheral pulses palpable. Less concern for compartment syndrome. General surgery consult for further recommendations. Anemia: Noted to have Guaiac-positive stool. IV ppi. GI consult. Trend H&H. Transfuse p.r.n. if hemoglobin less than 7. History of AFib: Will hold home Eliquis until cleared by General surgery and Gastroenterology. Patient's last dose was prior to coming into the hospital. Vitals stable. Will monitor closely. Elevated troponin: Patient denies any chest pain. EKG nonischemic. Likely in the setting of demand. Echocardiogram. Cardiology consult. Thrombocytopenia: The patient current platelet level is 33. Prior numbers over 98. Will obtain CT head to rule out any spontaneous bleeds. LINDA on CKD: Will hold nephrotoxins. Nephrology consult. History of diabetes: Insulin sliding scale History of hypertension: Will hold home antihypertensives given concerns for bleeding. DVT prophylaxis: Patient's home Eliquis on hold as mentioned. Code status: Full code
--- NOTE | 2020-07-24 02:47 | PC.NURSE ---
PATIENT ALERT AND ORIENTED, BREATHING IS EVEN AND UNLABORED, BLOOD CONTINUES TO RUN AT THIS TIME.
[2020-07-24] MEDS: Omeprazole 20 MG CAPSULE.DR PO (07:38)
[2020-07-24 09:03] LABS: Basophils Percent Auto 0.3 % (0-2); Eosinophils Percent Auto 0.4 % (0-4); Hematocrit 32.2 % (37-47); Hemoglobin 10.1 g/dl (12.0-16.0); Imm Gran Abs Auto 0.08 X10*3/uL (0.00-0.03); Imm Gran Pct Auto 1.1 % (0.0-0.4); Lymphocytes Absolute Auto 0.7 X10*3/uL (1.2-4.9); Lymphocytes Percent Auto 9.5 % (20-40); MANUAL DIFF FLAG SCAN; Mean Corpuscular HGB Conc 31.4 g/dl (31.0-35.0); Mean Corpuscular Hemoglobin 29.6 pg (27.0-33.0); Mean Corpuscular Volume 94.4 fL (80-98); Monocytes Absolute Auto 1.1 X10*3/uL (0.1-1.2); Monocytes Percent Auto 15.5 % (2-11); Neutrophils Absolute Auto 5.1 X10*3/uL (2.0-8.3); Neutrophils Percent Auto 73.2 % (45-73); Red Blood Count 3.41 X10*6/uL (4.20-5.50); Red Cell Distribution Width 15.4 % (11.0-16.0); SCAN SMEAR FLAG 1
[2020-07-24 09:04] LABS: Platelet Count 45 X10*3/uL (160-400)
--- NOTE | 2020-07-24 09:09 | PM.CNCAR ---
History of Present Illness History of Present Illness Date of Service: 07/24/20 Requesting physician: Amber Turk Chief complaint: Thigh hematoma, +troponin Narrative: Pleasant 79-year-old female who is known to Dr. Hernandez in our office presenting with fall and a right thigh hematoma with anemia. She was also noticed to have elevated troponin levels. She has a complex past history of including heart failure with preserved ejection fraction, atrial fibrillation, anemia, aortic valve stenosis for which she underwent transcatheter aortic valve replacement by Dr. Kenny, chronic kidney disease stage 4, COPD, hyperlipidemia and diabetes. On Tuesday she had a fall in her kitchen. She is unable to explain how she fell but is saying that she found herself on the floor. She said her son helped her to get up. She is saying she has also fallen before but does not remember how that happened. She was noticed to have anemia on hemoglobin checked by the primary care physician and then she was sent to the emergency department. She has a right thigh hematoma at this point. She has some tenderness and pain at the site. Her troponin levels were elevated and that is why we were consulted. She is denying chest pain or shortness of breath. Her high sensitivity troponin level are 1388. Stool occult blood was positive hemoglobin was 7.7 but 10.1 now. I am not sure whether she received any blood transfusions or not. Platelet counts are 45,000. She has chronic thrombocytopenia. She was also noticed to have acute kidney injury with creatinine of 2.16 which is coming down to 1.85 now. EKG personally reviewed by me is showing sinus rhythm with first-degree AV block, cannot rule out inferior infarct, anteroseptal infarct, lateral T-wave inversions with differential for ischemia versus left ventricular hypertrophy. Review of Systems Review of Systems: Thigh pain. Tired. Yes all other systems are reviewed and are negative [facility] Past Medical History Medical History (HFpEF) heart failure with preserved ejection fraction Afib Anemia Anxiety Aortic valve stenosis Asthma Basal cell carcinoma Benign essential hypertension Chronic kidney disease, stage 4 (severe) COPD (chronic obstructive pulmonary disease) Diabetic polyneuropathy Fracture Melanoma Mild cognitive impairment with memory loss Obesity (BMI 30-39.9) Paroxysmal atrial fibrillation Pure hypercholesterolemia Thrombocytopenia Type 2 diabetes mellitus with diabetic chronic kidney disease Family History Family History Father Medical history unknown Mother Acute myeloid leukemia Cancer Maternal Grandmother Myocardial infarction Brother Myocardial infarction Sister Brain aneurysm Surgical History Surgical History History of cardiac catheterization History of colonoscopy History of eye surgery 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) Stented coronary artery Social History Social History Alcohol intake: never Smoking Status: Never smoker Tobacco Type: Cigarette Packs Per Day: 0.5 Years Smoked: 19 Smoked in Last 30 Days: No Use of substances other than those prescribed or required for medical reasons: No Advance Directives: No Advance Directives Information Provided: No Meds Allergies Allergy/AdvReac Type Severity Reaction Status Date / Time Penicillins [PENICILLINS] Allergy Severe HIVES/SWELL Verified 07/23/20 13:39 ING Active Medications: Current Medications Generic Name Dose Route Start Last Admin Trade Name Freq PRN Reason Stop Dose Admin Acetaminophen 650 mg 07/24/20 00:32 Acetaminophen Supp 650 Mg Supp.Rect NH Q6H PRN Pain, Mild (Pain Scale 1-3) Amiodarone HCl 200 mg 07/24/20 09:00 Amiodarone Hcl 200 Mg Tablet PO DAILY [facility] Atorvastatin Calcium 20 mg 07/24/20 21:00 Atorvastatin Calcium 20 Mg Tablet PO BEDTIME [facility] Calcitriol 0.25 mcg 07/25/20 09:00 Calcitriol 0.25 Mcg Capsule PO MoWeFr [facility] Ferrous Sulfate 324 mg 07/24/20 08:30 Ferrous Sulfate 324 Mg Tablet. PO BIDPC SATINDER Hydralazine HCl 100 mg 07/24/20 09:00 Hydralazine Hcl 50 Mg Tablet PO BID [facility] Insulin Human Lispro 0 unit 07/24/20 07:30 Insulin Lispro 100 Unit/Ml 3 Ml Vial SUBCUT QIDACHS [facility] Isosorbide Mononitrate 30 mg 07/24/20 09:00 Isosorbide Mononitrate 30 Mg Tab.Er.24h PO DAILY [facility] Protocol Meclizine HCl 25 mg 07/24/20 09:00 Meclizine Hcl 12.5 Mg Tablet PO BID [facility] Memantine 10 mg 07/24/20 09:00 Memantine Hcl 10 Mg Tablet PO BID [facility] Non-Formulary Medication 6 mg 07/24/20 09:00 Rivastigmine Tartrate PO BID [facility] Omeprazole 20 mg 07/24/20 06:30 07/24/20 07:38 Omeprazole 20 Mg Capsule. PO 20 mg DAILY@30 [facility] Administration Pantoprazole Sodium 40 mg 07/24/20 06:30 07/24/20 07:38 Pantoprazole Sodium 40 Mg/10 Ml Vial IVPUSH 40 mg DAILY@0630 [facility] Administration Pregabalin 50 mg 07/24/20 09:00 Pregabalin 50 Mg Capsule PO TID [facility] Senna 8.6 mg 07/24/20 21:00 Sennosides 8.6 Mg Tablet PO BEDTIME [facility] Sertraline HCl 100 mg 07/24/20 09:00 Sertraline Hcl 100 Mg Tablet PO DAILY [facility] Sodium Chloride 3 ml 07/24/20 08:00 0.9 % Sodium Chloride Flush 3 Ml Syringe IVFLUSH QSHIFT [facility] Tiotropium Orbisonia 1 puff 07/24/20 08:00 07/24/20 08:09 Tiotropium Orbisonia 18 Mcg Cap.W.Dev INHALE Not Given RDAILY [facility] Vitamin D 25 mcg 07/24/20 09:00 Cholecalciferol (Vitamin D3) 25 Mcg Tablet PO DAILY [facility] Home Medications Medication Instructions Recorded Confirmed Last Taken Type acetaminophen 650 mg PO Q4H PRN 03/05/20 07/23/20 Unknown History calcitriol 0.25 mcg PO 3XW 03/05/20 07/23/20 Unknown History cholecalciferol (vitamin D3) 2,000 unit PO DAILY 03/05/20 07/23/20 03/04/20 History memantine [Namenda XR] 21 mg PO DAILY 03/05/20 07/23/20 03/04/20 History nitroglycerin [Nitrostat] 0.4 mg SUBLINGUAL Q5M PRN 03/05/20 07/23/20 Unknown History rivastigmine tartrate 6 mg PO BID 03/05/20 07/23/20 03/04/20 History sennosides [senna] 8.6 mg PO BEDTIME 03/05/20 07/23/20 03/03/20 History sertraline 100 mg PO DAILY 03/05/20 07/23/20 03/04/20 History albuterol sulfate 90 mcg/actuation 2 puff INHALATION Q6H PRN g 04/06/20 07/23/20 Unknown History aerosol inhaler apixaban 2.5 mg tablet 2.5 mg PO BID 04/23/20 07/23/20 Unknown History amlodipine 5 mg tablet 5 mg PO DAILY 05/09/20 07/23/20 Unknown History nitrofurantoin macrocrystal 100 mg 100 mg PO DAILY 05/09/20 07/23/20 Unknown History capsule meclizine 25 mg PO BID 05/19/20 07/23/20 Unknown History umeclidinium 62.5 mcg/actuation 1 inh INHALATION BEDTIME 06/10/20 07/23/20 Unknown History blister powder for inhalation ferrous sulfate 325 mg (65 mg 325 mg PO BID tab 07/23/20 07/23/20 Unknown History iron) tablet Physical Exam Vital Signs: Vital Signs: Last Vital Signs Temp 97.9 F 07/24/20 07:43 Pulse 62 07/24/20 07:43 Resp 15 07/24/20 07:43 BP 127/54 L 07/24/20 07:43 Pulse Ox 95 07/24/20 07:43 Body Mass Index 32.3 GENERAL APPEARANCE: in no acute distress, frail. HEENT: unremarkable. HEAD: normocephalic, atraumatic. NECK/THYROID: no carotid bruit, no jugular venous distention. SKIN: no suspicious lesions, warm and dry. HEART: Systolic murmur aortic area,regular rate and rhythm, S1, S2 normal. LUNGS: clear to auscultation bilaterally. ABDOMEN: normal, bowel sounds present, soft, nontender, nondistended. EXTREMITIES: no clubbing, cyanosis, or edema. Hematoma right thigh bruising. The area is quite tense due to hematoma. PERIPHERAL PULSES: equal. NEUROLOGIC: nonfocal, alert and oriented. PSYCH: mood/affect full range. Results Labs and Meds Result diagrams: 07/24/20 08:35 07/24/20 08:35 Lab results: Laboratory Results - last 24 hr 07/23/20 07/23/20 07/23/20 18:49 19:23 19:23 WBC RBC Hgb Hct MCV MCH MCHC RDW Plt Count MPV Troponin I High Sens 1388.5 H Stool Occult Blood POS COVID-19 ([facility]ISHA) COVID-19 Clin Com Blood Type A Positive Antibody Screen POSITIVE Antibody Identification Anti-c Antigen Identification c Antigen - NEGATIVE Crossmatch See Detail Crossmatch (AHG) See Detail 07/23/20 07/24/20 07/24/20 19:26 01:13 08:35 WBC 7.0 RBC 3.41 L D Hgb 10.1 L D Hct 32.2 L D MCV 94.4 MCH 29.6 MCHC 31.4 RDW 15.4 Plt Count 45 L D MPV Not Reportable Troponin I High Sens 1202.0 H Stool Occult Blood COVID-19 ([facility]ISHA) Negative COVID-19 Clin Com See Note Blood Type Antibody Screen Antibody Identification Antigen Identification Crossmatch Crossmatch (AHG) Imaging Radiologist's impression: Impressions Femur X-Ray 07/23/20 19:15 IMPRESSION: 1. No radiographic evidence of acute fracture or subluxation involving the right femur. 2. Marked progressive tricompartmental degenerative changes of the right knee. Head CT 07/24/20 01:57 IMPRESSION: 1. No acute intracranial finding. 2. No acute fracture or malalignment of the cervical spine. Mild degenerative change. Cervical Spine CT 07/24/20 01:58 IMPRESSION: 1. No acute intracranial finding. 2. No acute fracture or malalignment of the cervical spine. Mild degenerative change. Assessment and Plan (1) Anemia: Qualifiers: Anemia type: unspecified type Qualified Code(s): D64.9 - Anemia, unspecified Status: Acute (2) Chronic kidney disease, stage 4 (severe): Status: Acute (3) Elevated troponin: Status: Acute (4) Thrombocytopenia: Status: Acute 79-year-old female with complex cardiovascular issues including severe aortic stenosis for which she underwent she has transcatheter aortic valve replacement. She also has paroxysmal atrial fibrillation for which she has been on amiodarone and Eliquis. She unfortunately had a fall and has presented to us with a right thigh hematoma and anemia. She also noticed to have occult blood positive on stool sample. She has chronic thrombocytopenia. The fall was mechanical or not is unclear. She is saying she has fallen before in the past. In any case right now mainstay of treatment is to resuscitate her. I think she received some blood because her hemoglobin has improved but I am not 100% sure about it. Her Eliquis has been held appropriately. I think troponin elevation is due to blood loss and anemia. Due to kidney injury there is probably slow washout of troponin. Otherwise she is hemodynamically stable. We will follow along with you. Thank you for allowing me to participate in the care of your patient. Please feel free to contact me if you have any questions.
[2020-07-24 09:23] LABS: SLIDE REVIEW VERIFIED
[2020-07-24 09:40] LABS: Anion Gap 10 (12-20); Blood Urea Nitrogen 30 mg/dL (9-16); Calcium 8.2 mg/dL (8.4-10.2); Carbon Dioxide 28 mmol/L (22-29); Chloride 107 mmol/L (96-108); Estimated Glomerular Filt Rate 26; Glucose Random 84 mg/dL (60-115); Potassium 4.1 mmol/L (3.3-5.1); Sodium 141 mmol/L (135-145)
--- NOTE | 2020-07-24 10:02 | MHC.CM.PN ---
Attempted to meet with patient in regards to discharge planning. Nursing care currently being provided. Attempted to reach out to daughterLida via telephone at [phone]. Left voicemail requesting return telephone call. Will attempt to meet with patient again. Continue to monitor for d/c needs.
[2020-07-24 10:11] LABS: Alanine Aminotransferase 325 U/L (0-31); Albumin Level 3.1 g/dL (3.5-5.0); Alkaline Phosphatase 77 U/L (39-117); Aspartate Amino Transferase 293 U/L (5-31); Bilirubin Direct 0.8 mg/dL (0.0-0.5); Bilirubin Total 1.6 mg/dL (0.0-1.0); Iron 169 mcg/dL (30-160); Percent Iron Saturation 58 % (15-50); Total Iron Binding Capacity 290 mcg/dL (228-428); Total Protein 5.4 g/dL (6.5-8.0); Unsaturated Iron Binding 121 ug/dL
[2020-07-24 10:29] LABS: Ferritin 114 ng/mL (10-250)
--- NOTE | 2020-07-24 10:47 | PC.NURSE ---
PT RESTING ON STRETCHER, WAITING FOR BED ASSIGNMENT PT NEEDS ARE BEING MET
--- NOTE | 2020-07-24 10:56 | MHC.CM.PN ---
Attempted to meet with patient in regards to discharge planning. Patient currently sleeping. will attempt to meet again. Continue to monitor for d/c needs.
[2020-07-24 11:08] LABS: Folate > 20.0 ng/mL (> or = 4.0); Vitamin B12 1113 pg/mL (200-900)
[2020-07-24] MEDS: Amiodarone HCL 200 MG TABLET PO (12:19)
[2020-07-24] MEDS: hydrALAZINE HCl 50 MG TABLET 100 MG PO ×2 (12:19→21:59)
[2020-07-24] MEDS: Memantine HCl 10 MG TABLET PO ×2 (12:20→21:59)
[2020-07-24] MEDS: Ferrous Sulfate 324 MG TABLET.DR PO ×2 (12:20→17:39)
[2020-07-24] MEDS: Sertraline HCL 100 MG TABLET PO (12:20)
[2020-07-24] MEDS: Cholecalciferol (Vitamin D3) 25 MCG TABLET PO (12:20)
[2020-07-24] MEDS: Pregabalin 50 MG CAPSULE PO ×3 (12:21→21:59)
[2020-07-24] MEDS: Isosorbide Mononitrate 30 MG TAB.ER.24H PO (14:28)
--- NOTE | 2020-07-24 14:38 | MHC.CM.PN ---
Received return telephone call from patient's daughter, Lakshmi. Patient lives with her on the first floor of the house. Lakshmi's brother lives on the 2nd floor. Patient uses a rollator walker for mobility assistance and has a home health aide from [facility] for 9 hours a week.Lakshmi also has 3 private pay aides. Patient's fell in May and has needed more supervision. PCP verified. HCP verified to be on file. IMM explained and sent via certified mail. Physical therapy eval is pending. If home therapy is recommended, Lakshmi agreeable to [facility] because patient has been active with them in the past. If rehab is needed, Lakshmi's facility choices are: 1)[facility] 2)[facility]. All referrals made in allscripts. Continue to monitor for d/c needs.
--- NOTE | 2020-07-24 14:43 | PC.NURSE ---
called to give report rn will call back
--- NOTE | 2020-07-24 15:14 | PM.EVENT ---
Event Note Date of Service: 07/24/20 Event Note: Seen and examined by hospitalist in this director of land acquisition. Seen and examined again Still complaining about hematoma in the leg otherwise -no new complaiants Physical exam: Cvs: rrr, [id number] , no murmur res: clear to auscultation ,no rhonchii or wheezing abd: no rebound or guarding ,nt, bs present. ext pulses present , no cyanosis right inner thigh -hematoma neuro: axo3 , nonfocal. Labs reviewed H&H is around 10 now. Assessment plan already coded in H&P note. 1. Acute blood loss anemia: Multifactorial thigh hematoma/question of GI bleed elevated lft's ? unclear etiology Continue PPI, status post transfusion tolerated well Will check H&H in the evening GI evaluation pending Workup also for thrombocytopenia worsening will add hematology since her platelet count dropped to 33, improing to 45. 2. ckd : Seems like creatinine near 1.8 range near baseline 3.afib hx , elevated trops: Continue amiodarone Cardio saw the patient-elevated troponin secondary? CKD Currently recommended to hold Eliquis Question fall mechanical circumstances unclear.
[2020-07-24 17:12] LABS: Glucose, Whole Blood 96 mg/dL (60-115)
--- NOTE | 2020-07-24 17:12 | P.EN_ITS ---
Event Note Date of Service: 07/24/20 Event Note: GI Consult-Full note dictated Imp: 79 yo female on Eliquis with a significant right inner thigh hematoma and an associated drop in Hgb. She was found to have Heme + stool as well. She has dark Iron from her chronic use of Iron, but the stool is no different than usual in regard to color or smell. She denies any ASA/NSAID use. She deneis any GI sx. She had negative colonoscopies in [address] Moon. Her Hgb has returned to baseline after her transfusions. At this point I don't think she needs an inpatient GI workup. We did review the need for a potential outpatient colonoscopy in regard to the Heme + stool so as to be sure this doesn't represen t anything such as a colon polyp or anything more serious. She understood this and would prefer to do things later in regard to a colonoscopy given the condition of her leg. Rec: Observe and follow Hgb. Her diet can be advanced from my standpoint. She should F/U with me in the office to review a possible colonoscopy. Continue her outpatient omeprazole. Please advise if I can be of further assistance while she is in the hospital. Thanks
--- NOTE | 2020-07-24 17:58 | P.CONGS_ITS ---
History of Present Illness Consult details Consult date: 07/24/20 Narrative: 79F referred to me for a thigh hematoma. She was apparently sent to the ED yesterday by her PCP because of this. The patient is on Eliquis for atrial fibrillation, and had fallen at home in her kitchen 4 days prior to her ER visit. She had noticed swelling of her inner thigh with pain then but did not feel she needed to go to the ED. She eventually saw her PCP yesterday for this an she was sent to the ED. She describes pain on the medial thigh. She was noticed to be anemic with a Hg of 7.7. She says she did not have loss of consciousness prior to falling, and denies hitting her head. Review of Systems Constitutional: Constitutional: Denies chills and Denies fever(s) Cardiovascular: Cardiovascular: Denies chest pain, Denies dyspnea and Denies dyspnea on exertion Respiratory: Respiratory: Denies cough, Denies dyspnea and Denies dyspnea on exertion Gastrointestinal: Gastrointestinal: Denies hematochezia and Denies change in bowel habits Genitourinary: Genitourinary: Denies hematuria Musculoskeletal: Musculoskeletal: Denies back pain and Denies limited range of motion Neurologic: Denies focal weakness and Denies convulsions Psychiatric: Psychiatric: Denies depression and Denies mood swings PMFSH Past Medical History Medical History (HFpEF) heart failure with preserved ejection fraction Afib Anemia Anxiety Aortic valve stenosis Asthma Basal cell carcinoma Benign essential hypertension Chronic kidney disease, stage 4 (severe) COPD (chronic obstructive pulmonary disease) Diabetic polyneuropathy Fracture Melanoma Mild cognitive impairment with memory loss Obesity (BMI 30-39.9) Paroxysmal atrial fibrillation Pure hypercholesterolemia Thrombocytopenia Type 2 diabetes mellitus with diabetic chronic kidney disease Family History Family History Father Medical history unknown Mother Acute myeloid leukemia Cancer Maternal Grandmother Myocardial infarction Brother Myocardial infarction Sister Brain aneurysm Surgical History Surgical History History of cardiac catheterization History of colonoscopy History of eye surgery 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) Stented coronary artery Social History Social History Household Members: Spouse and Family Housing: House Alcohol intake: never Smoking Status: Never smoker Tobacco Type: Cigarette Packs Per Day: 0.5 Years Smoked: 19 service: No Current occupational status: retired Meds Allergies Allergy/AdvReac Type Severity Reaction Status Date / Time Penicillins [PENICILLINS] Allergy Severe HIVES/SWELL Verified 07/23/20 13:39 ING Active Medications: Current Medications Generic Name Dose Route Start Last Admin Trade Name Freq PRN Reason Stop Dose Admin Acetaminophen 650 mg 07/24/20 00:32 Acetaminophen Supp 650 Mg Supp.Rect IN Q6H PRN Pain, Mild (Pain Scale 1-3) Amiodarone HCl 200 mg 07/24/20 09:00 07/24/20 12:19 Amiodarone Hcl 200 Mg Tablet PO 200 mg DAILY SATINDER Administration Atorvastatin Calcium 20 mg 07/24/20 21:00 Atorvastatin Calcium 20 Mg Tablet PO BEDTIME SATINDER Calcitriol 0.25 mcg 07/25/20 09:00 Calcitriol 0.25 Mcg Capsule PO MoWeFr [facility] Ferrous Sulfate 324 mg 07/24/20 08:30 07/24/20 17:39 Ferrous Sulfate 324 Mg Tablet.Dr PO 324 mg BIDPC SATINDER Administration Hydralazine HCl 100 mg 07/24/20 09:00 07/24/20 12:19 Hydralazine Hcl 50 Mg Tablet PO 100 mg BID SATINDER Administration Insulin Human Lispro 0 unit 07/24/20 07:30 07/24/20 17:24 Insulin Lispro 100 Unit/Ml 3 Ml Vial SUBCUT Not Given QIDACHS SATINDER Isosorbide Mononitrate 30 mg 07/24/20 09:00 07/24/20 14:28 Isosorbide Mononitrate 30 Mg Tab.Er.24h PO 30 mg DAILY SATINDER Administration Protocol Meclizine HCl 25 mg 07/24/20 09:00 07/24/20 14:28 Meclizine Hcl 12.5 Mg Tablet PO Not Given BID SATINDER Memantine 10 mg 07/24/20 09:00 07/24/20 12:20 Memantine Hcl 10 Mg Tablet PO 10 mg BID SATINDER Administration Non-Formulary Medication 6 mg 07/24/20 09:00 Rivastigmine Tartrate PO BID SATINDER Pantoprazole Sodium 40 mg 07/24/20 16:30 07/24/20 17:39 Pantoprazole Sodium 40 Mg/10 Ml Vial IVPUSH 40 mg BID@0630,1630 [facility] Administration Pregabalin 50 mg 07/24/20 09:00 07/24/20 17:38 Pregabalin 50 Mg Capsule PO 50 mg TID [facility] Administration Senna 8.6 mg 07/24/20 21:00 Sennosides 8.6 Mg Tablet PO BEDTIME [facility] Sertraline HCl 100 mg 07/24/20 09:00 07/24/20 12:20 Sertraline Hcl 100 Mg Tablet PO 100 mg DAILY [facility] Administration Sodium Chloride 3 ml 07/24/20 08:00 07/24/20 16:10 0.9 % Sodium Chloride Flush 3 Ml Syringe IVFLUSH Not Given QSHIFT [facility] Tiotropium Brodnax 1 puff 07/24/20 12:31 Tiotropium Brodnax 18 Mcg Cap.W.Dev INHALE RDAILY [facility] Vitamin D 25 mcg 07/24/20 09:00 07/24/20 12:20 Cholecalciferol (Vitamin D3) 25 Mcg Tablet PO 25 mcg DAILY [facility] Administration Home Medications Medication Instructions Recorded Confirmed Last Taken Type acetaminophen 650 mg PO Q4H PRN 03/05/20 07/23/20 Unknown History calcitriol 0.25 mcg PO 3XW 03/05/20 07/23/20 Unknown History cholecalciferol (vitamin D3) 2,000 unit PO DAILY 03/05/20 07/23/20 03/04/20 History memantine [Namenda XR] 21 mg PO DAILY 03/05/20 07/23/20 03/04/20 History nitroglycerin [Nitrostat] 0.4 mg SUBLINGUAL Q5M PRN 03/05/20 07/23/20 Unknown History rivastigmine tartrate 6 mg PO BID 03/05/20 07/23/20 03/04/20 History sennosides [senna] 8.6 mg PO BEDTIME 03/05/20 07/23/20 03/03/20 History sertraline 100 mg PO DAILY 03/05/20 07/23/20 03/04/20 History albuterol sulfate 90 mcg/actuation 2 puff INHALATION Q6H PRN g 04/06/20 07/23/20 Unknown History aerosol inhaler apixaban 2.5 mg tablet 2.5 mg PO BID 04/23/20 07/23/20 Unknown History amlodipine 5 mg tablet 5 mg PO DAILY 05/09/20 07/23/20 Unknown History nitrofurantoin macrocrystal 100 mg 100 mg PO DAILY 05/09/20 07/23/20 Unknown History capsule meclizine 25 mg PO BID 05/19/20 07/23/20 Unknown History umeclidinium 62.5 mcg/actuation 1 inh INHALATION BEDTIME 06/10/20 07/23/20 Unknown History blister powder for inhalation ferrous sulfate 325 mg (65 mg 325 mg PO BID tab 07/23/20 07/23/20 Unknown History iron) tablet Physical Exam Vital Signs: Vital Signs: Last Vital Signs Temp 98.5 F 07/24/20 17:13 Pulse 66 07/24/20 17:13 Resp 18 07/24/20 17:13 BP 158/70 H 07/24/20 17:13 Pulse Ox 93 07/24/20 17:13 Body Mass Index 32.3 Const: General: comfortable and no acute distress Neck: Neck: Yes no lymphadenopathy Resp: Effort & Inspection: normal respiratory effort Cardio: Rhythm: abnormal rhythm GI: Palpation (GI): Soft to palpation, not firm, nontender and no guarding Extrem: Other: large hematoma, right medial thigh, tender, no evidence of vascular compromise, no firmness of the surrounding thigh or lower leg, no motor or sensory deficit of leg Results Labs Result diagrams: 07/24/20 08:35 07/24/20 08:35 Labs: Abnormal lab results 07/23/20 07/23/20 07/24/20 Range/Units 19:23 19:23 01:13 RBC (4.20-5.50) X10*6/uL Hgb (12.0-16.0) g/dl Hct (37-47) % Plt Count (160-400) X10*3/uL Immature Gran % (Auto) (0.0-0.4) % Neut % (Auto) (45-73) % Lymph % (Auto) (20-40) % [place] % (Auto) (2-11) % Lymph # (Auto) (1.2-4.9) X10*3/uL Abs Immat Gran (auto) (0.00-0.03) X10*3/uL Anion Gap (12-20) BUN (9-16) mg/dL Creatinine (0.5-1.4) mg/dL Calcium (8.4-10.2) mg/dL Iron (30-160) mcg/dL % Saturation (15-50) % Total Bilirubin (0.0-1.0) mg/dL Direct Bilirubin (0.0-0.5) mg/dL AST (5-31) U/L ALT (0-31) U/L Troponin I High Sens 1388.5 H 1202.0 H (<3.5-17.0) ng/L Total Protein (6.5-8.0) g/dL Albumin (3.5-5.0) g/dL Vitamin B12 (200-900) pg/mL Crossmatch See Detail Crossmatch (AHG) See Detail 07/24/20 07/24/20 07/24/20 Range/Units 08:35 08:35 08:35 RBC 3.41 L D (4.20-5.50) X10*6/uL Hgb 10.1 L D (12.0-16.0) g/dl Hct 32.2 L D (37-47) % Plt Count 45 L D (160-400) X10*3/uL Immature Gran % (Auto) 1.1 H (0.0-0.4) % Neut % (Auto) 73.2 H (45-73) % Lymph % (Auto) 9.5 L (20-40) % [place] % (Auto) 15.5 H (2-11) % Lymph # (Auto) 0.7 L (1.2-4.9) X10*3/uL Abs Immat Gran (auto) 0.08 H (0.00-0.03) X10*3/uL Anion Gap 10 L (12-20) BUN 30 H (9-16) mg/dL Creatinine 1.85 H (0.5-1.4) mg/dL Calcium 8.2 L (8.4-10.2) mg/dL Iron 169 H (30-160) mcg/dL % Saturation 58 H (15-50) % Total Bilirubin 1.6 H (0.0-1.0) mg/dL Direct Bilirubin 0.8 H (0.0-0.5) mg/dL AST 293 H (5-31) U/L ALT 325 H (0-31) U/L Troponin I High Sens (<3.5-17.0) ng/L Total Protein 5.4 L (6.5-8.0) g/dL Albumin 3.1 L (3.5-5.0) g/dL Vitamin B12 1113 H (200-900) pg/mL Crossmatch Crossmatch (AHG) Short CBC 07/24/20 Range/Units 08:35 WBC 7.0 (4.8-10.8) X10*3/uL Hgb 10.1 L D (12.0-16.0) g/dl Hct 32.2 L D (37-47) % Plt Count 45 L D (160-400) X10*3/uL BMP 07/24/20 08:35 Sodium 141 Potassium 4.1 Chloride 107 Carbon Dioxide 28 BUN 30 H Creatinine 1.85 H Calcium 8.2 L Cardiac Enzymes 07/24/20 Range/Units 08:35 Total Creatine Kinase 46 (26-140) U/L Liver Function 07/24/20 Range/Units 08:35 Total Bilirubin 1.6 H (0.0-1.0) mg/dL Direct Bilirubin 0.8 H (0.0-0.5) mg/dL AST 293 H (5-31) U/L ALT 325 H (0-31) U/L Alkaline Phosphatase 77 (39-117) U/L Albumin 3.1 L (3.5-5.0) g/dL All other labs normal. Assessment and Plan (1) Hematoma: Status: Acute She has a large right thigh hematoma secondary to a fall 5 days ago along with anticoagulated state. She had a signifcant drop in her Hg but has not required tranfusion. Her anticoagulation should be held for now. I will order for a CT scan to have a baseline study of her large hematoma. Her Hg should be followed. She may need to have the hematoma evacuated for significant discomfort. However, she had elevated troponin levels, along with low platelets, so we will hold off on surgical intervention for now.She also has signficant cardia and renal disease. I will follow along closely while she is in the hospital. She should be kept on bedrest for now because of her fall risk.
--- NOTE | 2020-07-24 19:16 | CONS_ITS ---
DATE OF SERVICE: 07/24/2020 REASON FOR CONSULTATION: Anemia and heme-positive stool. HISTORY OF PRESENT ILLNESS: This has been obtained from the patient and the medical record. The patient is a 79-year-old female, on chronic Eliquis in relation to atrial fibrillation, who apparently fell and developed a large right-sided medial thigh hematoma. She was seen as an outpatient and was noted to have a drop in her hemoglobin and was subsequently referred to the ER. During her evaluation, she was found to have heme-positive stool. She describes that her stools are chronically dark on iron replacement. However, she has not noticed any particular change in her bowel movements such as change in smell nor any darker than usual stool. She has not noticed any red blood. She eats comfortably and denies any significant heartburn nor dysphagia. Aside from her Eliquis, she does not use any other blood thinners and denies use of any things such as aspirin nor NSAIDs. Since being here in the hospital, she did receive a transfusion and her hemoglobin did improve from 7.7 on admission to 10.1 this morning. In early July, her hemoglobin was 10.2. She does have a long-standing anemia with a hemoglobin of 9.7 in April of 2020 and a hemoglobin of 9.2 in February of 2020. She is followed by Dr. Sawyer for her anemia. She apparently has some component of thrombocytopenia as well. The patient presently denies any abdominal pain. She is hungry. She has not yet eaten today. Again, she denies any upper GI complaints. Her last bowel movement was yesterday before coming to the hospital. She has had negative colonoscopies in [address] Lakshmi Moon. MEDICATIONS: At home included acetaminophen, albuterol inhaler, amiodarone, amlodipine, Eliquis, atorvastatin, calcitriol, vitamin D, iron, hydralazine, isosorbide, meclizine, Namenda, Nitrofurantoin, omeprazole, Lyrica, rivastigmine, Senokot, sertraline. Her medications here in the hospital include amiodarone, atorvastatin, calcitriol, vitamin D, iron, hydralazine, insulin, isosorbide, meclizine, Namenda, IV Protonix, Lyrica, rivastigmine, Senokot. PAST MEDICAL HISTORY: She has an aortic valve replacement with a bovine valve. Coronary artery stent placement. Atrial fibrillation. Chronic anemia. Anxiety. Asthma. Hypertension. Renal insufficiency. COPD. Neuropathy. Hyperlipidemia. Thrombocytopenia. She has had a hysterectomy. History of melanoma. SOCIAL HISTORY: She does not smoke nor use any significant amounts of alcohol. FAMILY HISTORY: Noncontributory. REVIEW OF SYSTEMS: CONSTITUTIONAL: She has been feeling somewhat weak after her fall. CARDIAC: No chest pain. PULMONARY: No cough. No hemoptysis. GASTROINTESTINAL: As above. URINARY: No dysuria. No hematuria. PHYSICAL EXAMINATION: GENERAL: The patient is a pleasant, alert, comfortable-appearing female. She answers questions appropriately. SKIN: Warm and dry. HEENT: Anicteric sclerae. NECK: Supple. ABDOMEN: Soft, nondistended, nontender without mass. EXTREMITIES: Evaluation of the right medial thigh shows a large ecchymosis. LABORATORY DATA: As above. Normal electrolytes. BUN 30, creatinine 1.85, iron 169, iron saturation 58%, ferritin 114, total bilirubin 1.6, AST 293, ALT 325, alkaline phosphatase 77, albumin 3.1. B12 and further levels are normal. IMPRESSION: Given the patient's clinical history, her drop in hemoglobin from her baseline anemia will be most certainly in relation to the large hematoma that she developed after her fall. She does have heme-positive stool, but I do not think she is having any significant GI bleeding at this time. We did review the finding of her heme-positive stool and the potential significance of that in regard to possibly implying there is a GI source such as a polyp, neoplasm, or angiodysplasia. However, at this point given her overall condition, I would hold off on having her undergo a colonoscopy since there is no urgency for this. I do not think this would show anything significant given no particular GI symptoms and 2 negative colonoscopies in the past. Nonetheless, I did advise her that we should consider doing one as an outpatient once things have improved in regard to the hematoma. She was in favor this as well as she does not think she would be up to undergoing a bowel prep at the present time due to her discomfort from the hematoma. As such, I think her diet can be advanced. I would switch her back to a p.o. PPI. Her hemoglobin should be followed. Certainly, if anything changes, we can re-evaluate things in regard to any need for inpatient workup. However at this point, I think things seem stable from a GI standpoint and again I would recommend we re-evaluate things as an outpatient. Of note, in regard to the elevated LFTs, this could be as a result of the hematoma given the elevated AST and some indirect bilirubin. However, I think it would be reasonable to have her undergo an ultrasound of the abdomen tomorrow just to be sure there is no other significant pathology. She is also on some medications including statin and amiodarone that might cause elevation of the LFTs. Looking in the medical record, I do not see any recent LFTs going back as far as February of 2020. Thank you for this consultation. MD LUPE Barragan/SONJA / [id number] MTDD
[2020-07-24 20:07] LABS: Hematocrit 31.9 % (37-47); Mean Corpuscular HGB Conc 31.3 g/dl (31.0-35.0); Mean Corpuscular Hemoglobin 29.4 pg (27.0-33.0); Mean Corpuscular Volume 93.8 fL (80-98); Mean Platelet Volume 12.8 fL (9.4-12.3); Red Cell Distribution Width 15.6 % (11.0-16.0)
[2020-07-24 20:09] LABS: Platelet Count 51 X10*3/uL (160-400)
[2020-07-24 20:59] LABS: Glucose, Whole Blood 108 mg/dL (60-115)
[2020-07-24] MEDS: Atorvastatin Calcium 20 MG TABLET PO (21:58)
[2020-07-24] MEDS: Meclizine HCl 12.5 MG TABLET 25 MG PO (21:58)
[2020-07-24] MEDS: Sennosides 8.6 MG TABLET PO (21:59)
[2020-07-24] MEDS: 0.9 % Sodium Chloride Flush 3 ML SYRINGE IVFLUSH (21:59)
[2020-07-25] VITALS (7 sets, daily range): BP systolic 138–166; BP diastolic 64–72; PULSE 70–83; RESP 16–22; TEMP 36.5–37.7; O2SAT 91–96; BMI 32.3
[2020-07-25 06:44] LABS: Alanine Aminotransferase 364 U/L (0-31); Albumin Level 2.9 g/dL (3.5-5.0); Alkaline Phosphatase 83 U/L (39-117); Aspartate Amino Transferase 349 U/L (5-31); Bilirubin Direct 0.7 mg/dL (0.0-0.5); Bilirubin Total 1.1 mg/dL (0.0-1.0); Total Protein 5.3 g/dL (6.5-8.0)
[2020-07-25 06:48] LABS: INTERNATIONAL NORM RATIO 1.4 (0.9-1.1); Prothrombin Time 16.6 SEC (10.8-13.0)
[2020-07-25 07:01] LABS: Thyroid Stimulating Hormone 1.07 uIU/mL (0.32-4.0)
[2020-07-25 07:18] LABS: Basophils Percent Auto 0.2 % (0-2); Hematocrit 31.2 % (37-47); Hemoglobin 10.1 g/dl (12.0-16.0); Imm Gran Abs Auto 0.08 X10*3/uL (0.00-0.03); Lymphocytes Absolute Auto 0.6 X10*3/uL (1.2-4.9); Lymphocytes Percent Auto 6.9 % (20-40); MANUAL DIFF FLAG SCAN; Mean Corpuscular HGB Conc 32.4 g/dl (31.0-35.0); Mean Corpuscular Hemoglobin 29.6 pg (27.0-33.0); Mean Corpuscular Volume 91.5 fL (80-98); Monocytes Absolute Auto 1.1 X10*3/uL (0.1-1.2); Monocytes Percent Auto 13.2 % (2-11); Neutrophils Absolute Auto 6.4 X10*3/uL (2.0-8.3); Neutrophils Percent Auto 78.7 % (45-73); Red Blood Count 3.41 X10*6/uL (4.20-5.50); Red Cell Distribution Width 15.7 % (11.0-16.0); SCAN SMEAR FLAG 1; White Blood Count 8.1 X10*3/uL (4.8-10.8)
[2020-07-25 07:21] LABS: Platelet Count 63 X10*3/uL (160-400)
--- NOTE | 2020-07-25 07:30 | CA_ITS ---
Transthoracic Echocardiogram Patient (Last, First, Middle): Patricia York L Gender: Female Date of : 1940 Age: 79 Procedure Date: 07/25/2020 Procedure Type: Transthoracic Echocardiogram [place] [facility] [place] Height: 149.86 cm Weight: 72.58 kg BSA: 1.68 m2 Heart Rate: bpm BP: 153 / 65 mmHg Blade Grader Operator: LAWSON Referring MD: Himanshu Marquez MD Symptoms: high trops Study Quality: Poor Conclusions: - Normal left ventricular size and systolic function. - Normal right ventricular cavity size and systolic function. - A bioprosthetic aortic valve is present. The prosthetic aortic valve appears to be functioning abnormally. There are elevated gradients across the aortic valve. Patient has blood loss and anemia and gradients are probably high due to anemia. Findings Left Ventricle Normal left ventricular size and systolic function. There is moderately increased left ventricular wall thickness. The visually estimated ejection fraction is between 55-60%. There is no evidence of regional wall motion abnormalities. Diastolic function is indeterminate on the basis of available data. There is severe septal asymmetric hypertrophy. Right Ventricle Normal right ventricular cavity size and systolic function. Aortic Valve A bioprosthetic aortic valve is present. The prosthetic aortic valve appears to be functioning abnormally. There are elevated gradients across the aortic valve. Mitral Valve There is severe mitral annular calcification. There is no mitral valve regurgitation. There is no mitral valve stenosis. Pulmonic Valve The pulmonic valve was not well visualized. Tricuspid Valve Likely normal tricuspid valve structure and function. Tricuspid regurgitation envelope is inadequate for calculation of right ventricular systolic pressure. Normal right atrial pressure. Great Vessels All visible segments of the aorta are normal in size. The pulmonary artery was not well visualized. Venous The inferior vena cava is normal in size and collapses greater than 50% with inspiration. Prior Study Comparison Changes noted compared to prior study dated: 03/10/2020. peak AV velocity 2.95 m/sec. Measurements 2D Linear Measurements IVSd: 1.76 0.6-0.9/0.6-1.0 cm LVIDd: 4.33 3.9-5.3/4.2-5.9 cm LVIDd Index: 2.58 2.4-3.2/2.2-3.1 cm/m2 LVIDs: 2.41 2.0-3.6 cm LVPWd: 1.20 0.7-1.1 cm Ao Root: 1.90 2.1-3.5 cm LA Diam: 3.30 2.7-3.8/3.0-4.0 cm LAIDs Index: 1.96 1.5-2.3 cm/m2 LV Mass: 318.49 67-162/88-224 g LV Mass Index: 189.58 43-95/49-115 g/m2 LVOT Diam: 1.90 3.0+(-)1.3 cm 2D Systolic Function EF 4C: 43.90 >55% EF 2C: 43.20 >55% Mitral Valve MV Pk E: 1.17 MV PK A: 1.20 MV Decel Time: 190.00 E/A: 1.00 E'Lateral: 7.94 E'Medial: 3.59 E/E' Med: 32.60 E/E' Lat: 14.70 PHT: 56.00 MVA PHT: 3.93 Decel Da[place]hin: 6.17 Aortic Valve AoV Pk Yovany: 2.74 AoV Mn Yovany: 1.74 AoV VTI: 0.49 AoV Pk Grad: 30.00 Aov Mn Grad: 14.00 RADHA Cont.VTI: 1.18 LVOT LVOT Pk Yovany: 0.95 LVOT Mn Yovany: 0.67 LVOT VTI: 0.20 LVOT Pk Grad: 4.00 LVOT Mn Grad: 2.00 LVOT Diam: 1.90 LVOT Area: 2.84 Diastolic Function MV Pk E: 1.17 MV Pk A: 1.20 E/A: 1.00 E'Medial: 3.59 E/E' Med: 32.60 E' Laterial: 7.94 E/E' Lat: 14.70 Tricuspid Valve RA Press: 3.00 Great Vessels Aorta Ao Root-2D: 1.90 2.0-3.7 cm Ao Asc: 3.30 2.1-3.4 cm Ao Arch: 2.50 Pulmonary Valve PV Pk Yovany: 1.07 Peak PV Grad: 5.00 Updated in Other Vendor System with Status of Final Kenn Gamez MD electronically signed on 07/25/2020 9:00:23 PM with status of Final
[2020-07-25 07:37] LABS: SLIDE REVIEW VERIFIED
[2020-07-25 07:49] LABS: Glucose, Whole Blood 74 mg/dL (60-115)
[2020-07-25] MEDS: hydrALAZINE HCl 50 MG TABLET 100 MG PO ×2 (09:40→20:53)
[2020-07-25] MEDS: Meclizine HCl 12.5 MG TABLET 25 MG PO ×2 (09:41→20:52)
[2020-07-25] MEDS: Cholecalciferol (Vitamin D3) 25 MCG TABLET PO (09:42)
[2020-07-25] MEDS: Pregabalin 50 MG CAPSULE PO ×3 (09:42→20:53)
[2020-07-25] MEDS: Memantine HCl 10 MG TABLET PO ×2 (09:43→20:53)
[2020-07-25] MEDS: Ferrous Sulfate 324 MG TABLET.DR PO ×2 (09:43→17:17)
[2020-07-25] MEDS: Isosorbide Mononitrate 30 MG TAB.ER.24H PO (09:44)
[2020-07-25] MEDS: Sertraline HCL 100 MG TABLET PO (09:44)
[2020-07-25] MEDS: Amiodarone HCL 200 MG TABLET PO (09:44)
[2020-07-25] MEDS: 0.9 % Sodium Chloride Flush 3 ML SYRINGE IVFLUSH ×3 (09:46→21:04)
[2020-07-25] MEDS: Pantoprazole Sodium 40 MG/10 ML VIAL IVPUSH ×2 (09:46→15:50)
[2020-07-25] MEDS: calcitrioL 0.25 MCG CAPSULE PO (10:03)
[2020-07-25 10:25] LABS: HBc Num1 0.13 S/CO (0.00-0.79); Hepatitis B Core Antibody Nonreactive (Nonreactive); ~HepC Num1 0.13 S/CO (0.00-0.79); ~Hepatitis C Antibody Nonreactive (Nonreactive)
[2020-07-25 10:43] LABS: HBsAGNum1 0.15 S/CO (0.00-0.99); Hepatitis A Antibody IgM 0.73 Index (0-0.79); Hepatitis B Surface Antigen Negative (Negative); ~Hepatitis A Antibody IgM Nonreactive (Nonreactive)
[2020-07-25 11:15] LABS: HBS Num1 3.25 mIU/mL (0-7.99); ~Hepatitis B Surface Antibody NONREACTIVE (Nonreactive)
--- NOTE | 2020-07-25 11:23 | P.CNHO_ITS ---
Subjective - Subjective Chief complaint: Thigh pain Patient: known to practice within the last 3 years Consult date: 07/25/20 Requesting Physician: Dr. Turk Primary Care Provider: Anthony Titus MD HPI - Consult Narrative Reason for consult: Worsening anemia/thrombocytopenia Narrative: Patricia York is a 79 year old female with long has standing history of anemia and thrombocytopenia admitted for a large thigh hematoma after a recent fall. She has been on anticoagulation with Eliquis for her atrial fibrilla tion.The fall happen in her kitchen, peers to be a mechanical fall. She did not have any loss of consciousness. Prior to the fall she did not experience chest pain, lightheadedness, focal weakness, numbness or tingling. Hemoglobin was down from 10.2 to 7.7 gram/dL on the day of admission. The ursula telet counts went down from 98k to 33 K. She received 2 units blood transfusion. She is going for hematoma evacuation today since it is very painful. Her Eliquis has been stopped since the . Review of Systems - Constitutional Reports no additional constitutional complaints - Eyes Reports no additional eye complaints - Cardiovascular Reports no additional cardiovascular complaints - Respiratory Reports no additional respiratory complaints - Neurologic Denies focal weakness, Denies convulsions PMFSH Medical History: Medical History (Last Reviewed 07/24/20 @ 18:03 by Jason Sung MD) (HFpEF) heart failure with preserved ejection fraction Afib Anemia Anxiety Aortic valve stenosis Asthma Basal cell carcinoma Benign essential hypertension Chronic kidney disease, stage 4 (severe) COPD (chronic obstructive pulmonary disease) Diabetic polyneuropathy Fracture Melanoma Mild cognitive impairment with memory loss Obesity (BMI 30-39.9) Paroxysmal atrial fibrillation Pure hypercholesterolemia Thrombocytopenia Type 2 diabetes mellitus with diabetic chronic kidney disease Family History: Family History (Last Reviewed 07/24/20 @ 18:03 by Jason Sung MD) Father Medical history unknown Mother Acute myeloid leukemia Cancer Maternal Grandmother Myocardial infarction Brother Myocardial infarction Sister Brain aneurysm Surgical History: Surgical History (Last Reviewed 07/24/20 @ 18:03 by Jason Sung MD) History of cardiac catheterization History of colonoscopy History of eye surgery 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) Stented coronary artery Social History: Social History (Last Reviewed 07/24/20 @ 18:03 by Jason Sung MD) Living Situation History: Household Members: Spouse Household Members: Family Housing: House Alcohol History: Alcohol intake: never Alcohol History Details: Alcohol intake frequency: holiday/special occasion Tobacco History: Tobacco Type: Cigarette Packs Per Day: 0.5 Occupation Assessmet: service: No Current occupational status: retired Smoking status: Never smoker Home Medications and Allergies Current Medications: Current Medications Generic Name Dose Route Start Last Admin Trade Name Willard PRN Reason Stop Dose Admin Amiodarone HCl 200 mg 07/24/20 09:00 07/25/20 09:44 Amiodarone Hcl 200 Mg Tablet PO 200 mg DAILY SATINDER Administration Atorvastatin Calcium 20 mg 07/24/20 21:00 07/24/20 21:58 Atorvastatin Calcium 20 Mg Tablet PO 20 mg BEDTIME [facility] Administration Calcitriol 0.25 mcg 07/25/20 09:00 07/25/20 10:03 Calcitriol 0.25 Mcg Capsule PO 0.25 mcg MoWeFr SATINDER Administration Ferrous Sulfate 324 mg 07/24/20 08:30 07/25/20 09:43 Ferrous Sulfate 324 Mg Tablet.Dr PO 324 mg BIDPC SATINDER Administration Hydralazine HCl 100 mg 07/24/20 09:00 07/25/20 09:40 Hydralazine Hcl 50 Mg Tablet PO 100 mg BID SATINDER Administration Insulin Human Lispro 0 unit 07/24/20 07:30 07/25/20 08:06 Insulin Lispro 100 Unit/Ml 3 Ml Vial SUBCUT Not Given QIDACHS SATINDER Isosorbide Mononitrate 30 mg 07/24/20 09:00 07/25/20 09:44 Isosorbide Mononitrate 30 Mg Tab.Er.24h PO 30 mg DAILY SATINDER Administration Protocol Meclizine HCl 25 mg 07/24/20 09:00 07/25/20 09:41 Meclizine Hcl 12.5 Mg Tablet PO 25 mg BID [facility]INDER Administration Memantine 10 mg 07/24/20 09:00 07/25/20 09:43 Memantine Hcl 10 Mg Tablet PO 10 mg BID SATINDER Administration Non-Formulary Medication 6 mg 07/24/20 09:00 Rivastigmine Tartrate PO BID SATINDER Pantoprazole Sodium 40 mg 07/24/20 16:30 07/25/20 09:46 Pantoprazole Sodium 40 Mg/10 Ml Vial IVPUSH 40 mg BID@0630,5350 [facility] Administration Pregabalin 50 mg 07/24/20 09:00 07/25/20 09:42 Pregabalin 50 Mg Capsule PO 50 mg TID [facility] Administration Senna 8.6 mg 07/24/20 21:00 07/24/20 21:59 Sennosides 8.6 Mg Tablet PO 8.6 mg BEDTIME SATINDER Administration Sertraline HCl 100 mg 07/24/20 09:00 07/25/20 09:44 Sertraline Hcl 100 Mg Tablet PO 100 mg DAILY [facility] Administration Sodium Chloride 3 ml 07/24/20 08:00 07/25/20 09:46 0.9 % Sodium Chloride Flush 3 Ml Syringe IVFLUSH 3 ml QSHIFT [facility] Administration Tiotropium [place] 1 puff 07/24/20 12:31 07/25/20 07:54 Tiotropium [place] 18 Mcg Cap.W.Dev INHALE Not Given RDAILY [facility] Vitamin D 25 mcg 07/24/20 09:00 07/25/20 09:42 Cholecalciferol (Vitamin D3) 25 Mcg Tablet PO 25 mcg DAILY [facility]INDER Administration Home Medications Medication Instructions Recorded Confirmed Type acetaminophen 650 mg PO Q4H PRN 03/05/20 07/23/20 History calcitriol 0.25 mcg PO 3XW 03/05/20 07/23/20 History cholecalciferol (vitamin D3) 2,000 unit PO DAILY 03/05/20 07/23/20 History memantine [Namenda XR] 21 mg PO DAILY 03/05/20 07/23/20 History nitroglycerin [Nitrostat] 0.4 mg SUBLINGUAL Q5M PRN 03/05/20 07/23/20 History rivastigmine tartrate 6 mg PO BID 03/05/20 07/23/20 History sennosides [senna] 8.6 mg PO BEDTIME 03/05/20 07/23/20 History sertraline 100 mg PO DAILY 03/05/20 07/23/20 History albuterol sulfate 90 mcg/actuation 2 puff INHALATION Q6H PRN g 04/06/20 07/23/20 History aerosol inhaler apixaban 2.5 mg tablet 2.5 mg PO BID 04/23/20 07/23/20 History amlodipine 5 mg tablet 5 mg PO DAILY 05/09/20 07/23/20 History nitrofurantoin macrocrystal 100 mg 100 mg PO DAILY 05/09/20 07/23/20 History capsule meclizine 25 mg PO BID 05/19/20 07/23/20 History umeclidinium 62.5 mcg/actuation 1 inh INHALATION BEDTIME 06/10/20 07/23/20 History blister powder for inhalation ferrous sulfate 325 mg (65 mg 325 mg PO BID tab 07/23/20 07/23/20 History iron) tablet Allergies Allergy/AdvReac Type Severity Reaction Status Date / Time Penicillins [PENICILLINS] Allergy Severe HIVES/SWELL Verified 07/23/20 13:39 ING Physical Exam Vital signs: Vital Signs Temp 98 F 07/25/20 10:47 Pulse 78 07/25/20 10:47 Resp 20 07/25/20 10:47 BP 138/64 07/25/20 10:47 Pulse Ox 95 07/25/20 10:47 Intake & Output 07/24/20 07/25/20 07/25/20 18:59 06:59 18:59 Intake Total 350 / 350 Balance 350 / 350 Intake: Intake (Blood Product) Amount 350 / 350 Red Blood Cells (E0382) Unit 350 / 350 [id number] Other: NPO Yes Number of Incontinent Voids 1 Weight 72.575 kg Weight 72.575 kg - Constitutional Present: mild distress - Routine Respiratory Exam Present: CTAB - Routine Cardiovascular Exam Cardiovascular: Present: S1, S2 - Routine Abdominal Exam Present: soft - Routine Extremities Exam Comments: Right medial thigh hematoma which is quite tender. Hem/Onc Consult Result - Labs CBC & Chem 7: 07/25/20 05:30 07/24/20 08:35 Labs: Short CBC 07/24/20 07/25/20 Range/Units 19:58 05:30 WBC 7.0 8.1 (4.8-10.8) X10*3/uL Hgb 10.0 L 10.1 L (12.0-16.0) g/dl Hct 31.9 L 31.2 L (37-47) % Plt Count 51 L 63 L (160-400) X10*3/uL Liver Function 07/25/20 Range/Units 05:30 Total Bilirubin 1.1 H (0.0-1.0) mg/dL Direct Bilirubin 0.7 H (0.0-0.5) mg/dL AST 349 H (5-31) U/L ALT 364 H (0-31) U/L Alkaline Phosphatase 83 (39-117) U/L Albumin 2.9 L (3.5-5.0) g/dL Assessment and Plan (1) Thrombocytopenia Status: Chronic 1. This is a 79-year-old woman with chronic anemia/thrombocytopenia which is mul tifactorial. She has had a fall in a large hematoma which caused worsening of both her anemia and thrombocytopenia secondary to blood loss and consumption of platelets. Her platelet counts are spontaneously improving. If she is bleeding she needs have platelet transfusion to keep it above 50 K. She is going for hematoma evacuation. Because of her underlying comorbidities, thrombocytopenia and renal failure, she is at high risk of bleeding. She should have her Eliquis on hold for 2 days prior to surgery and on the day of surgery. I thank you very much for this consultation.
[2020-07-25 11:35] LABS: Glucose, Whole Blood 80 mg/dL (60-115)
--- NOTE | 2020-07-25 11:56 | P.PNCA_ITS ---
Subjective Subjective Date of Service: 07/25/20 <ROSARIO Mann - Last Filed: 07/25/20 12:29> 07/26/20 <Kenn Gamez MD - Last Filed: 07/26/20 11:05> Principal diagnosis: Fall, Right thigh hematoma, anemia, NSTEMI <ROSARIO Mann - Last Filed: 07/25/20 12:29> Interval history: Cardiology follow up NSTEMI, anemia. Seen at 1140. Today she is noted to be sleepy, easily awakes with verbal stimuli. Reports discomfort right thigh. Denies sob, chest discomfort, palpitation, lightheadedness, abdominal discomfort. Does have facial grimace to palpation of right upper quadrant. <ROSARIO Mann - Last Filed: 07/25/20 12:29> Review of Systems Review of Systems as above <ROSARIO Mann - Last Filed: 07/25/20 12:29> Yes all other systems are reviewed and are negative <ROSARIO Mann - Last Filed: 07/25/20 12:29> Physical Exam Vital Signs: Last Vital Signs Temp 98 F 07/25/20 10:47 Pulse 78 07/25/20 10:47 Resp 20 07/25/20 10:47 BP 138/64 07/25/20 10:47 Pulse Ox 95 07/25/20 10:47 Body Mass Index 32.3 <ROSARIO Mann - Last Filed: 07/25/20 12:29> Const Other: Sleepy, easily arousable, oriented <ROSARIO Mann - Last Filed: 07/25/20 12:29> General: cooperative and no acute distress <ROSARIO Mann - Last Filed: 07/25/20 12:29> Orientation/consciousness: patient oriented x3 <ROSARIO Mann - Last Filed: 07/25/20 12:29> Eyes Conjunctivae: conjunctivae normal <ROSARIO Mann - Last Filed: 07/25/20 12:29> Neck Neck: Yes normal visual inspection and Yes no JVD <ROSARIO Mann - Last Filed: 07/25/20 12:29> Resp Effort & Inspection: normal respiratory effort, able to speak in complete sentences and not labored <Marzena Degroot NP-C - Last Filed: 07/25/20 12:29> Auscultation: clear to auscultation bilaterally, no crackles, no rales, no rhonchi and no wheezes <[facility] Degroot [facility] - Last Filed: 07/25/20 12:29> Cardio Palpation: normal PMI <Marzena Degroot [employer]-C - Last Filed: 07/25/20 12:29> Rate: regular rate <Marzena Mikayla [employer]-C - Last Filed: 07/25/20 12:29> Rhythm: regular rhythm <[facility]zena Degroot [facility] - Last Filed: 07/25/20 12:29> Heart sounds: S2 normal heart sound present and Murmur heart sound present (systolic murmur noted left sternal border) <Marzena Degroot [employer]-C - Last Filed: 07/25/20 12:29> Peripheral pulses: Peripheral pulses 2+ throughout <Marzena Degroot [employer]C - Last Filed: 07/25/20 12:29> GI Inspection: Yes normal to inspection <Marzena Degroot [employer]C - Last Filed: 07/25/20 12:29> Skin Other: Gross ecchimosis to right medial/posterior thigh. <Marzena Degroot [employer] - Last Filed: 07/25/20 12:29> Neuro General: patient oriented x3 <Marzena Degroot [employer] - Last Filed: 07/25/20 12:29> Extrem Other: Hematoma right thigh. Lower legs WNL <Marzena Degroot, [employer]-C - Last Filed: 07/25/20 12:29> Results Labs and Meds Result diagrams: : 07/26/20 04:41 07/26/20 04:41 <Marzena Degroot [employer]-C - Last Filed: 07/25/20 12:29> Lab results: Laboratory Results - last 24 hr 07/24/20 07/24/20 07/24/20 17:06 19:58 20:26 WBC 7.0 RBC 3.40 L Hgb 10.0 L Hct 31.9 L MCV 93.8 MCH 29.4 MCHC 31.3 RDW 15.6 Plt Count 51 L MPV 12.8 H Immature Gran % (Auto) Neut % (Auto) Lymph % (Auto) [place] % (Auto) Eos % (Auto) Baso % (Auto) Lymph # (Auto) [place] # (Auto) Eos # (Auto) Baso # (Auto) Abs Immat Gran (auto) Absolute Neuts (auto) Absolute Nucleated RBC 0.000 Nucleated RBC % (auto) 0.0 Smear Tech's Comments PT INR POC Glucose 96 108 Total Bilirubin Direct Bilirubin AST ALT Alkaline Phosphatase Total Protein Albumin TSH Hepatitis A IgM Ab Hep Bs Antigen Hep Bs Antibody Hep B Core Total Ab Hepatitis C Ab (EIA) 07/25/20 07/25/20 07/25/20 05:30 05:30 05:30 WBC 8.1 RBC 3.41 L Hgb 10.1 L Hct 31.2 L MCV 91.5 MCH 29.6 MCHC 32.4 RDW 15.7 Plt Count 63 L MPV Not Reportable Immature Gran % (Auto) 1.0 H Neut % (Auto) 78.7 H Lymph % (Auto) 6.9 L [place] % (Auto) 13.2 H Eos % (Auto) 0.0 Baso % (Auto) 0.2 Lymph # (Auto) 0.6 L [place] # (Auto) 1.1 Eos # (Auto) 0.0 Baso # (Auto) 0.0 Abs Immat Gran (auto) 0.08 H Absolute Neuts (auto) 6.4 Absolute Nucleated RBC 0.000 Nucleated RBC % (auto) 0.0 Smear Tech's Comments VERIFIED PT 16.6 H INR 1.4 H POC Glucose Total Bilirubin 1.1 H Direct Bilirubin 0.7 H AST 349 H ALT 364 H Alkaline Phosphatase 83 Total Protein 5.3 L Albumin 2.9 L TSH Hepatitis A IgM Ab Hep Bs Antigen Hep Bs Antibody Hep B Core Total Ab Hepatitis C Ab (EIA) 07/25/20 07/25/20 07/25/20 05:30 07:44 09:21 WBC RBC Hgb Hct MCV MCH MCHC RDW Plt Count MPV Immature Gran % (Auto) Neut % (Auto) Lymph % (Auto) [place] % (Auto) Eos % (Auto) Baso % (Auto) Lymph # (Auto) [place] # (Auto) Eos # (Auto) Baso # (Auto) Abs Immat Gran (auto) Absolute Neuts (auto) Absolute Nucleated RBC Nucleated RBC % (auto) Smear Tech's Comments PT INR POC Glucose 74 Total Bilirubin Direct Bilirubin AST ALT Alkaline Phosphatase Total Protein Albumin TSH 1.07 Hepatitis A IgM Ab Nonreactive Hep Bs Antigen Negative Hep Bs Antibody NONREACTIVE Hep B Core Total Ab Nonreactive Hepatitis C Ab (EIA) Nonreactive 07/25/20 11:31 WBC RBC Hgb Hct MCV MCH MCHC RDW Plt Count MPV Immature Gran % (Auto) Neut % (Auto) Lymph % (Auto) [place] % (Auto) Eos % (Auto) Baso % (Auto) Lymph # (Auto) [place] # (Auto) Eos # (Auto) Baso # (Auto) Abs Immat Gran (auto) Absolute Neuts (auto) Absolute Nucleated RBC Nucleated RBC % (auto) Smear Tech's Comments PT INR POC Glucose 80 Total Bilirubin Direct Bilirubin AST ALT Alkaline Phosphatase Total Protein Albumin TSH Hepatitis A IgM Ab Hep Bs Antigen Hep Bs Antibody Hep B Core Total Ab Hepatitis C Ab (EIA) <ROSARIO Mann - Last Filed: 07/25/20 12:29> Imaging Radiologist's impression: Impressions Abdomen Ultrasound 07/25/20 08:30 IMPRESSION: Upper normal-size gallbladder with gallstones. Gallbladder wall thickening and edema. The x ray technologist reports the patient is tender over the gallbladder. Ultrasound appearance is concerning for acute cholecystitis. Slightly echogenic liver. Left renal stones. Limited visualization of the pancreas. Femur CT 07/25/20 09:00 IMPRESSION: High attenuation soft tissue mass in the subcutaneous fat of the right distal medial thigh just above the knee suggestive of a hematoma. There is diffuse stranding of the subcutaneous fat and some overlying skin thickening. Severe arthritis at the knee joint and mild arthritis at the right hip joint. 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 <ROSARIO Mann - Last Filed: 07/25/20 12:29> Progress Note: A&P Assessment and plan (1) NSTEMI (non-ST elevated myocardial infarction): Status: Acute <ROSARIO Mann - Last Filed: 07/25/20 12:29> Assessment and Plan: Fall at home resulting in hematoma right tight. Hgb on admit 7.7, Troponin up to 1388. No reports of CP. EKG with SR, 1st degree AVB. ST/ T abn leads I, aVL. No clinical signs of acute HF. Secondary NSTEMI likely related to anemia. Has known hx of diffuse nonrevascularizable CAD. Echo is pending. No aspirin/ eliquis as she has large hematoma, thrombocytopenia and will be needed surgical evacuation. Not on statin, has elevated LFTs. Last h/h 10.1/ 31.2. Recommend keep Hct > 30. <ROSARIO Mann - Last Filed: 07/25/20 12:29> (2) Elevated troponin: Status: Acute <ROSARIO Mann - Last Filed: 07/25/20 12:29> (3) Hematoma of right thigh: Status: Acute <ROSARIO Mann - Last Filed: 07/25/20 12:29> Assessment and Plan: Anticoagulation being held. According to hospitalist, planning for surgical evacuation of hematoma. <ROSARIO Mann - Last Filed: 07/25/20 12:29> (4) Thrombocytopenia: Status: Chronic <ROSARIO Mann - Last Filed: 07/25/20 12:29> Assessment and Plan: Dr Sawyer has evaluated <ROSARIO Mann - Last Filed: 07/25/20 12:29> (5) S/P TAVR (transcatheter aortic valve replacement): Problem details: 02/2020 for symptomatic severe with 23 mm valve <ROSARIO Mann - Last Filed: 07/25/20 12:29> Status: Acute <ROSARIO Mann - Last Filed: 07/25/20 12:29> Assessment and Plan: Hx of severe , s/p TAVR. Last prior echo shos EF 60-65%, grade II diastolic dysfunction, Bio AVR with mean gradiant 23mmhg, mild pulm HTN. Has audible heart murmur. Repeat echo planned for today. <ROSARIO Mann - Last Filed: 07/25/20 12:29> (6) Paroxysmal atrial fibrillation: Status: Acute <ROSARIO Mann - Last Filed: 07/25/20 12:29> Assessment and Plan: Hx PAF. Suppressed with Amiodarone. Now with elevated LFTs. Ultrasound of abdomen today shows findings suggesting cholecystitis. Tele shows SR with PVC, rate 70-80s. Will Hold Amiodarone for now. Had been on Eliquis for anticoagulation. Now with fall/ hematoma as above. Anticoagulation being held. Eventual restart when medically appropriate. Recommend PT eval for fall risk prior to restart. ongoing tele monitoring. <ROSARIO Mann - Last Filed: 07/25/20 12:29> Fall Risk Details Current Medications: Current Medications Generic Name Dose Route Start Last Admin Trade Name Adriaq PRN Reason Stop Dose Admin Amiodarone HCl 200 mg 07/24/20 09:00 07/25/20 09:44 Amiodarone Hcl 200 Mg Tablet PO 200 mg DAILY [facility] Administration Atorvastatin Calcium 20 mg 07/24/20 21:00 07/24/20 21:58 Atorvastatin Calcium 20 Mg Tablet PO 20 mg BEDTIME [facility] Administration Calcitriol 0.25 mcg 07/25/20 09:00 07/25/20 10:03 Calcitriol 0.25 Mcg Capsule PO 0.25 mcg MoWeFr [facility] Administration Ferrous Sulfate 324 mg 07/24/20 08:30 07/25/20 09:43 Ferrous Sulfate 324 Mg Tablet. PO 324 mg BIDPC [facility] Administration Hydralazine HCl 100 mg 07/24/20 09:00 07/25/20 09:40 Hydralazine Hcl 50 Mg Tablet PO 100 mg BID [facility] Administration Insulin Human Lispro 0 unit 07/24/20 07:30 07/25/20 08:06 Insulin Lispro 100 Unit/Ml 3 Ml Vial SUBCUT Not Given QIDACHS [facility] Isosorbide Mononitrate 30 mg 07/24/20 09:00 07/25/20 09:44 Isosorbide Mononitrate 30 Mg Tab.Er.24h PO 30 mg DAILY [facility] Administration Protocol Meclizine HCl 25 mg 07/24/20 09:00 07/25/20 09:41 Meclizine Hcl 12.5 Mg Tablet PO 25 mg BID [facility] Administration Memantine 10 mg 07/24/20 09:00 07/25/20 09:43 Memantine Hcl 10 Mg Tablet PO 10 mg BID [facility] Administration Non-Formulary Medication 6 mg 07/24/20 09:00 Rivastigmine Tartrate PO BID [facility] Pantoprazole Sodium 40 mg 07/24/20 16:30 07/25/20 09:46 Pantoprazole Sodium 40 Mg/10 Ml Vial IVPUSH 40 mg BID@0630,1630 [facility] Administration Pregabalin 50 mg 07/24/20 09:00 07/25/20 09:42 Pregabalin 50 Mg Capsule PO 50 mg TID [facility] Administration Senna 8.6 mg 07/24/20 21:00 07/24/20 21:59 Sennosides 8.6 Mg Tablet PO 8.6 mg BEDTIME [facility] Administration Sertraline HCl 100 mg 07/24/20 09:00 07/25/20 09:44 Sertraline Hcl 100 Mg Tablet PO 100 mg DAILY [facility] Administration Sodium Chloride 3 ml 07/24/20 08:00 07/25/20 09:46 0.9 % Sodium Chloride Flush 3 Ml Syringe IVFLUSH 3 ml QSHIFT [facility] Administration Tiotropium [place] 1 puff 07/24/20 12:31 07/25/20 07:54 Tiotropium [place] 18 Mcg Cap.W.Dev INHALE Not Given RDAILY [facility] Vitamin D 25 mcg 07/24/20 09:00 07/25/20 09:42 Cholecalciferol (Vitamin D3) 25 Mcg Tablet PO 25 mcg DAILY [facility] Administration <ROSARIO Mann - Last Filed: 07/25/20 12:29> Time Spent With Patient Time: Total time spent is greater than 50% in coordination of care (as documented) at patient's floor/unit and/or counseling patient: 20 <ROSARIO Mann - Last Filed: 07/25/20 12:29> Time with patient: 15 - 24 minutes <ROSARIO Mann - Last Filed: 07/25/20 12:29>
--- NOTE | 2020-07-25 13:06 | HO.PM.IMPN ---
Subjective Subjective Date of Service: 07/26/20 Interval History: Gi bleed,ckf , afib. Review of Systems Patient denies any abdominal pain or shortness of breath or chest pain or fever or chills. Still has inner thigh pain and the hematoma area. Physical Exam Vital Signs: Vital Signs: Last Vital Signs Temp 98 F 07/25/20 10:47 Pulse 78 07/25/20 10:47 Resp 20 07/25/20 10:47 BP 138/64 07/25/20 10:47 Pulse Ox 95 07/25/20 10:47 Body Mass Index 32.3 Physical exam: Constitutional: Noted acute distress But has pain. HEENT: Eyes: Anicteric ,no discharge. Neck: Supple. Cvs: rrr, [id number] , no murmur res: clear to auscultation ,no rhonchii or wheezing abd: no rebound or guarding ,nt, bs present. ext pulses present , no cyanosis right inner thight -significant hematoma area unchanged , still painful. neuro: axo3 , nonfocal. Objective Data Current Medications Generic Name Dose Route Start Last Admin Trade Name Freq PRN Reason Stop Dose Admin Atorvastatin Calcium 20 mg 07/24/20 21:00 07/24/20 21:58 Atorvastatin Calcium 20 Mg Tablet PO 20 mg BEDTIME SATINDER Administration Calcitriol 0.25 mcg 07/25/20 09:00 07/25/20 10:03 Calcitriol 0.25 Mcg Capsule PO 0.25 mcg MoWeFr SATINDER Administration Ferrous Sulfate 324 mg 07/24/20 08:30 07/25/20 09:43 Ferrous Sulfate 324 Mg Tablet. PO 324 mg BIDPC SATINDER Administration Hydralazine HCl 100 mg 07/24/20 09:00 07/25/20 09:40 Hydralazine Hcl 50 Mg Tablet PO 100 mg BID SATINDER Administration Insulin Human Lispro 0 unit 07/24/20 07:30 07/25/20 12:35 Insulin Lispro 100 Unit/Ml 3 Ml Vial SUBCUT Not Given QIDACHS SATINDER Isosorbide Mononitrate 30 mg 07/24/20 09:00 07/25/20 09:44 Isosorbide Mononitrate 30 Mg Tab.Er.24h PO 30 mg DAILY SATINDER Administration Protocol Meclizine HCl 25 mg 07/24/20 09:00 07/25/20 09:41 Meclizine Hcl 12.5 Mg Tablet PO 25 mg BID SATINDER Administration Memantine 10 mg 07/24/20 09:00 07/25/20 09:43 Memantine Hcl 10 Mg Tablet PO 10 mg BID SATINDER Administration Non-Formulary Medication 6 mg 07/24/20 09:00 Rivastigmine Tartrate PO BID [facility] Pantoprazole Sodium 40 mg 07/24/20 16:30 07/25/20 09:46 Pantoprazole Sodium 40 Mg/10 Ml Vial IVPUSH 40 mg BID@0630,1630 SATINDER Administration Pregabalin 50 mg 07/24/20 09:00 07/25/20 09:42 Pregabalin 50 Mg Capsule PO 50 mg TID [facility] Administration Senna 8.6 mg 07/24/20 21:00 07/24/20 21:59 Sennosides 8.6 Mg Tablet PO 8.6 mg BEDTIME SATINDER Administration Sertraline HCl 100 mg 07/24/20 09:00 07/25/20 09:44 Sertraline Hcl 100 Mg Tablet PO 100 mg DAILY SATINDER Administration Sodium Chloride 3 ml 07/24/20 08:00 07/25/20 09:46 0.9 % Sodium Chloride Flush 3 Ml Syringe IVFLUSH 3 ml QSHIFT [facility] Administration Tiotropium [place] 1 puff 07/24/20 12:31 07/25/20 07:54 Tiotropium [place] 18 Mcg Cap.W.Dev INHALE Not Given RDAILY [facility] Vitamin D 25 mcg 07/24/20 09:00 07/25/20 09:42 Cholecalciferol (Vitamin D3) 25 Mcg Tablet PO 25 mcg DAILY SATINDER Administration Labs CBC & Chem 7: 07/26/20 04:41 07/26/20 04:41 Assessment and Plan (1) Hematoma: Status: Acute (2) Thrombocytopenia: Status: Chronic Assessment and Plan: 79-year-old female with a past medical history of hypertension, hyperlipidemia, diabetes, AFib on Eliquis, history of prior tick stenosis status post TAVR, diastolic heart failure, diabetic neuropathy, anxiety, depression, COPD, a anemia presented to the hospital with a chief complaint of fall. 1.Fall: Mechanical in nature-I spoke to her daughter as per the daughter she missed chair while says trying to sit and then likely fall because of that. Denies any loss of consciousness. Continue to monitor., fall precautions. PT evaluation noted-may need home PT upon discharge if continue to ambulate. 2.Right thigh hematoma: Hematoma noted on the medial side of the thigh; still very painful pain maangement 3 acute blood loss anemia-multifactorial:hematoma , fobt positive also : Noted to have Guaiac-positive stool. s/p 2prbc transfusion yesterday seen by GI -hold eliquis for now,recomended outpatient Gi workup. 4.History of AFib/ Hx OF tAVR: hold eliquis as above. amiodarone on hold due to elevated lft's ventricular rate controlled. Elevated troponin: Thought to be related to hematoma and bleeding. cardio following 5.Thrombocytopenia: The patient current platelet level is 33. Prior numbers over 98. platlets seems improving spntaneously hold eliquis . hemtoma evaquation can be done earlist tomorrow since was on eliquis due to hematoma hematology followin 6.ckd: db resolved cr seems near baseline. 7.History of diabetes: fs in 80-100's , asymptomatic , hold Insulin sliding scale. 8.History of hypertension: continue hydralazine /imdur . DVT prophylaxis: Patient's home Eliquis on hold as mentioned.
--- NOTE | 2020-07-25 14:49 | PM.PNGS ---
Subjective Subjective Date of Service: 07/25/20 Interval history: pt was scheduled as an add on case for evacuation of thigh hematoma today I had discussed this with her daughter Lakshmi she complains of signficant discomfort on hematoma site Physical Exam Vital Signs: Vital Signs: Last Vital Signs Temp 98 F 07/25/20 10:47 Pulse 78 07/25/20 10:47 Resp 20 07/25/20 10:47 BP 138/64 07/25/20 10:47 Pulse Ox 95 07/25/20 10:47 Body Mass Index 32.3 Chemistry 07/24/20 08:35 Sodium 141 Potassium 4.1 Carbon Dioxide 28 BUN 30 H Creatinine 1.85 H Calcium 8.2 L Hematology 07/24/20 07/24/20 07/25/20 08:35 19:58 05:30 WBC 7.0 7.0 8.1 Hgb 10.1 L D 10.0 L 10.1 L Plt Count 45 L D 51 L 63 L Laboratory Results WBC 8.1 X10*3/uL (4.8 -10.8) 07/25/20 05:30 RBC 3.41 X10*6/uL (4. 20-5.50) L 07/25/20 05:30 Hgb 10.1 g/dl (12.0-1 6.0) L 07/25/20 05:30 Hct 31.2 % (37-47) L 07/25/20 05:30 MCV 91.5 fL (80-98) 07/25/20 05:30 MCH 29.6 pg (27.0-33. 0) 07/25/20 05:30 MCHC 32.4 g/dl (31.0-3 5.0) 07/25/20 05:30 RDW 15.7 % (11.0-16.0 ) 07/25/20 05:30 Plt Count 63 X10*3/uL (160- 400) L 07/25/20 05:30 MPV Not Reportable 07/25/20 05:30 Immature Gran % (A uto) 1.0 % (0.0-0.4) H 07/25/20 05:30 Neut % (Auto) 78.7 % (45-73) H 07/25/20 05:30 Lymph % (Auto) 6.9 % (20-40) L 07/25/20 05:30 Ada % (Auto) 13.2 % (2-11) H 07/25/20 05:30 Eos % (Auto) 0.0 % (0-4) 07/25/20 05:30 Baso % (Auto) 0.2 % (0-2) 07/25/20 05:30 Lymph # (Auto) 0.6 X10*3/uL (1.2 -4.9) L 07/25/20 05:30 Ada # (Auto) 1.1 X10*3/uL (0.1 -1.2) 07/25/20 05:30 Eos # (Auto) 0.0 X10*3/uL (0.0 -0.4) 07/25/20 05:30 Baso # (Auto) 0.0 X10*3/uL (0.0 -0.2) 07/25/20 05:30 Abs Immat Gran (au to) 0.08 X10*3/uL (0. 00-0.03) H 07/25/20 05:30 Absolute Neuts (au to) 6.4 X10*3/uL (2.0 -8.3) 07/25/20 05:30 Absolute Nucleated RBC 0.000 X10*3/uL (0 .0-0.012) 07/25/20 05:30 Nucleated RBC % (a uto) 0.0 /100WBC (0.0- 0.2) 07/25/20 05:30 Smear Tech's Comme nts VERIFIED 07/25/20 05:30 PT 16.6 SEC (10.8-13 .0) H 07/25/20 05:30 INR 1.4 (0.9-1.1) H 07/25/20 05:30 Sodium 141 mmol/L (135-1 45) 07/24/20 08:35 Potassium 4.1 mmol/L (3.3-5 .1) 07/24/20 08:35 Chloride 107 mmol/L (96-10 8) 07/24/20 08:35 Carbon Dioxide 28 mmol/L (22-29) 07/24/20 08:35 Anion Gap 10 (12-20) L 07/24/20 08:35 BUN 30 mg/dL (9-16) H 07/24/20 08:35 Creatinine 1.85 mg/dL (0.5-1 .4) H 07/24/20 08:35 Estim Creat Clear Calc 22.0 07/24/20 08:35 Estimated GFR 26 07/24/20 08:35 POC Glucose 80 mg/dL (60-115) 07/25/20 11:31 Random Glucose 84 mg/dL (60-115) D 07/24/20 08:35 Calcium 8.2 mg/dL (8.4-10 .2) L 07/24/20 08:35 Iron 169 mcg/dL (30-16 0) H 07/24/20 08:35 TIBC 290 mcg/dL (228-4 28) 07/24/20 08:35 % Saturation 58 % (15-50) H 07/24/20 08:35 Unsat Iron Binding 121 ug/dL 07/24/20 08:35 Ferritin 114 ng/mL (10-250 ) 07/24/20 08:35 Total Bilirubin 1.1 mg/dL (0.0-1. 0) H 07/25/20 05:30 Direct Bilirubin 0.7 mg/dL (0.0-0. 5) H 07/25/20 05:30 AST 349 U/L (5-31) H 07/25/20 05:30 ALT 364 U/L (0-31) H 07/25/20 05:30 Alkaline Phosphata se 83 U/L (39-117) 07/25/20 05:30 Total Creatine Kin ase 46 U/L (26-140) 07/24/20 08:35 Troponin I High Se ns 1202.0 ng/L (<3.5 -17.0) H 07/24/20 01:13 Total Protein 5.3 g/dL (6.5-8.0 ) L 07/25/20 05:30 Albumin 2.9 g/dL (3.5-5.0 ) L 07/25/20 05:30 Vitamin B12 1113 pg/mL (200-9 00) H 07/24/20 08:35 Folate > 20.0 ng/mL (> o r = 4.0) 07/24/20 08:35 TSH 1.07 uIU/mL (0.32 -4.0) 07/25/20 05:30 Stool Occult Blood POS (NEG) 07/23/20 18:49 COVID-19 (TAISHA) Negative (Negati ve) 07/23/20 19:26 COVID-19 Clin Com See Note 07/23/20 19:26 Hepatitis A IgM Ab Nonreactive (Non reactive) 07/25/20 09:21 Hep Bs Antigen Negative (Negati ve) 07/25/20 09:21 Hep Bs Antibody NONREACTIVE (Non reactive) 07/25/20 09:21 Hep B Core Total A b Nonreactive (Non reactive) 07/25/20 09:21 Hepatitis C Ab (EI A) Nonreactive (Non reactive) 07/25/20 09:21 Blood Type A Positive 07/23/20 19:23 Antibody Screen POSITIVE 07/23/20 19:23 Antibody Identific ation Inconclusive Anti -K Anti-c 07/23/20 19:23 Antibody Identific ation Inconclusive Anti -K Anti-c 07/23/20 19:23 Antibody Identific ation Inconclusive Anti -K Anti-c 07/23/20 19:23 Antigen Identifica tion E Antigen - NEGAT HANSEL K Antigen - NE GATIVE c Antigen - NEGATIVE 07/23/20 19:23 Antigen Identifica tion E Antigen - NEGAT HANSEL K Antigen - NE GATIVE c Antigen - NEGATIVE 07/23/20 19:23 Antigen Identifica tion E Antigen - NEGAT HANSEL K Antigen - NE GATIVE c Antigen - NEGATIVE 07/23/20 19:23 Crossmatch See Detail 07/23/20 19:23 Crossmatch (AHG) See Detail 07/23/20 19:23 Impressions Femur X-Ray 07/23/20 19:15 IMPRESSION: 1. No radiographic evidence of acute fracture or subluxation involving the right femur. 2. Marked progressive tricompartmental degenerative changes of the right knee. Head CT 07/24/20 01:57 IMPRESSION: 1. No acute intracranial finding. 2. No acute fracture or malalignment of the cervical spine. Mild degenerative change. Cervical Spine CT 07/24/20 01:58 IMPRESSION: 1. No acute intracranial finding. 2. No acute fracture or malalignment of the cervical spine. Mild degenerative change. Abdomen Ultrasound 07/25/20 08:30 IMPRESSION: Upper normal-size gallbladder with gallstones. Gallbladder wall thickening and edema. The registered radiologic technologist reports the patient is tender over the gallbladder. Ultrasound appearance is concerning for acute cholecystitis. Slightly echogenic liver. Left renal stones. Limited visualization of the pancreas. Femur CT 07/25/20 09:00 IMPRESSION: High attenuation soft tissue mass in the subcutaneous fat of the right distal medial thigh just above the knee suggestive of a hematoma. There is diffuse stranding of the subcutaneous fat and some overlying skin thickening. Severe arthritis at the knee joint and mild arthritis at the right hip joint. 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 Const: Other: appears frail General: No comfortable or no acute distress Eyes: Sclerae: sclerae normal Resp: Effort & Inspection: normal respiratory effort Cardio: Rhythm: abnormal rhythm GI: Other: no RUQ tenderness Palpation (GI): Soft to palpation, not firm, nontender and no guarding Extrem: Other: large hematoma, right medial thigh, stable, tender to touch Progress Note: A&P Assessment and plan (1) Hematoma: Status: Acute Assessment and Plan: pt was on schedule today for evacuation of hematoma in the OR with MAC hematoma large, causing discomfort, stable - images reviewed with radiologist CT shows 7.5x 3.8 x 4.9 cm hematoma I had discussed planned procedure with daughter Lakshmi however, Hospitalist says Sales Order Clerk had recommended to hold off on evacuation - pt had been on Eliquis until 07/23 and longer interval off Eliquis was recommended pt rescheduled for Tuesday (2) Gallstones: Status: Acute Assessment and Plan: GI had sent pt for US in view of mildy abnormal LFTs - US shows gallstones, top-normal GB size, some GB thickening suggestive of cholecystitis pt has no tenderness on exam, denies any abdl pain, no Marion's sign now also many comorbid conditions recommend IV abx treatment lap earle not planned at this time unless with worsening daughter Lakshmi agreeable to plan follow LFTs dw Hospitalist Fall Risk Details Current Medications: Current Medications Generic Name Dose Route Start Last Admin Trade Name Freq PRN Reason Stop Dose Admin Atorvastatin Calcium 20 mg 07/24/20 21:00 07/24/20 21:58 Atorvastatin Calcium 20 Mg Tablet PO 20 mg BEDTIME SATINDER Administration Calcitriol 0.25 mcg 07/25/20 09:00 07/25/20 10:03 Calcitriol 0.25 Mcg Capsule PO 0.25 mcg MoWeFr SATINDER Administration Docusate Sodium 100 mg 07/25/20 21:00 Docusate Sodium 100 Mg Capsule PO BEDTIME SATINDER Ferrous Sulfate 324 mg 07/24/20 08:30 07/25/20 09:43 Ferrous Sulfate 324 Mg Tablet.Dr PO 324 mg BIDPC ASTINDER Administration Hydralazine HCl 100 mg 07/24/20 09:00 07/25/20 09:40 Hydralazine Hcl 50 Mg Tablet PO 100 mg BID SATINDER Administration Insulin Human Lispro 0 unit 07/24/20 07:30 07/25/20 12:35 Insulin Lispro 100 Unit/Ml 3 Ml Vial SUBCUT Not Given QIDACHS [facility] Isosorbide Mononitrate 30 mg 07/24/20 09:00 07/25/20 09:44 Isosorbide Mononitrate 30 Mg Tab.Er.24h PO 30 mg DAILY SATINDER Administration Protocol Meclizine HCl 25 mg 07/24/20 09:00 07/25/20 09:41 Meclizine Hcl 12.5 Mg Tablet PO 25 mg BID SATINDER Administration Memantine 10 mg 07/24/20 09:00 07/25/20 09:43 Memantine Hcl 10 Mg Tablet PO 10 mg BID SATINDER Administration Non-Formulary Medication 6 mg 07/24/20 09:00 Rivastigmine Tartrate PO BID [facility] Oxycodone HCl 5 mg 07/25/20 13:15 Oxycodone Hcl Immed Release 5 Mg Tablet PO Q4H PRN Pain, Moderate (Pain Scale 4-6 Pantoprazole Sodium 40 mg 07/24/20 16:30 07/25/20 09:46 Pantoprazole Sodium 40 Mg/10 Ml Vial IVPUSH 40 mg BID@0630,1630 [facility] Administration Pregabalin 50 mg 07/24/20 09:00 07/25/20 09:42 Pregabalin 50 Mg Capsule PO 50 mg TID [facility] Administration Senna 8.6 mg 07/24/20 21:00 07/24/20 21:59 Sennosides 8.6 Mg Tablet PO 8.6 mg BEDTIME SATINDER Administration Senna 17.2 mg 07/25/20 21:00 Sennosides 8.6 Mg Tablet PO BEDTIME [facility] Sertraline HCl 100 mg 07/24/20 09:00 07/25/20 09:44 Sertraline Hcl 100 Mg Tablet PO 100 mg DAILY SATINDER Administration Sodium Chloride 3 ml 07/24/20 08:00 07/25/20 09:46 0.9 % Sodium Chloride Flush 3 Ml Syringe IVFLUSH 3 ml QSHIFT SATINDER Administration Tiotropium [place] 1 puff 07/24/20 12:31 07/25/20 07:54 Tiotropium [place] 18 Mcg Cap.W.Dev INHALE Not Given RDAILY [facility] Vitamin D 25 mcg 07/24/20 09:00 07/25/20 09:42 Cholecalciferol (Vitamin D3) 25 Mcg Tablet PO 25 mcg DAILY SATINDER Administration Time Spent With Patient Time: Total time spent is greater than 50% in coordination of care (as documented) at patient's floor/unit and/or counseling patient: Time with patient: Greater than 35 minutes
[2020-07-25 16:11] LABS: Glucose, Whole Blood 85 mg/dL (60-115)
[2020-07-25] MEDS: metroNIDAZOLE/NS 500 MG/100 ML PIGGYBACK 100 MG IV (17:18)
[2020-07-25] MEDS: levoFLOXacin/D5W 500 MG/100 ML PIGGYBACK 100 MG IV (18:27)
[2020-07-25 20:35] LABS: Glucose, Whole Blood 90 mg/dL (60-115)
[2020-07-25] MEDS: Sennosides 8.6 MG TABLET PO (20:53)
[2020-07-25] MEDS: Sennosides 8.6 MG TABLET 17.2 MG PO (20:53)
[2020-07-25] MEDS: Atorvastatin Calcium 20 MG TABLET PO (20:53)
[2020-07-25] MEDS: Docusate Sodium 100 MG CAPSULE PO (20:53)
[2020-07-26] VITALS (8 sets, daily range): BP systolic 110–148; BP diastolic 58–65; PULSE 61–78; RESP 14–18; TEMP 36.3–37.6; O2SAT 95–99
[2020-07-26] MEDS: metroNIDAZOLE/NS 500 MG/100 ML PIGGYBACK 100 MG IV ×2 (01:39→10:39)
[2020-07-26] MEDS: Pantoprazole Sodium 40 MG/10 ML VIAL IVPUSH (05:49)
[2020-07-26 07:00] LABS: Hematocrit 33.5 % (37-47); Hemoglobin 10.5 g/dl (12.0-16.0); Mean Corpuscular HGB Conc 31.3 g/dl (31.0-35.0); Mean Corpuscular Hemoglobin 29.3 pg (27.0-33.0); Mean Corpuscular Volume 93.6 fL (80-98); Mean Platelet Volume 12.5 fL (9.4-12.3); Red Blood Count 3.58 X10*6/uL (4.20-5.50); Red Cell Distribution Width 15.8 % (11.0-16.0); White Blood Count 7.9 X10*3/uL (4.8-10.8)
[2020-07-26 07:10] LABS: Anion Gap 14 (12-20); Blood Urea Nitrogen 33 mg/dL (9-16); Calcium 8.4 mg/dL (8.4-10.2); Carbon Dioxide 25 mmol/L (22-29); Chloride 110 mmol/L (96-108); Creatinine Clr Calc Pharmacy 26.4; Estimated Glomerular Filt Rate 32; Glucose Random 63 mg/dL (60-115); Potassium 4.1 mmol/L (3.3-5.1); Sodium 145 mmol/L (135-145)
[2020-07-26 07:12] LABS: Platelet Count 98 X10*3/uL (160-400)
[2020-07-26] MEDS: Cholecalciferol (Vitamin D3) 25 MCG TABLET PO (08:13)
[2020-07-26] MEDS: Pregabalin 50 MG CAPSULE PO ×3 (08:13→21:42)
[2020-07-26] MEDS: Isosorbide Mononitrate 30 MG TAB.ER.24H PO (08:14)
[2020-07-26] MEDS: Meclizine HCl 12.5 MG TABLET 25 MG PO ×2 (08:14→21:42)
[2020-07-26] MEDS: Memantine HCl 10 MG TABLET PO ×2 (08:14→21:42)
[2020-07-26] MEDS: hydrALAZINE HCl 50 MG TABLET 100 MG PO (08:14)
[2020-07-26] MEDS: Sertraline HCL 100 MG TABLET PO (08:14)
[2020-07-26] MEDS: 0.9 % Sodium Chloride Flush 3 ML SYRINGE IVFLUSH ×2 (08:15→23:54)
[2020-07-26] MEDS: Ferrous Sulfate 324 MG TABLET.DR PO ×2 (08:17→19:11)
[2020-07-26 08:23] LABS: Glucose, Whole Blood 69 mg/dL (60-115)
--- NOTE | 2020-07-26 11:14 | PM.PNGS ---
Subjective Subjective Date of Service: 07/26/20 Interval history: Patient resting comfortably, no new complaints Physical Exam Vital Signs: Vital Signs: Last Vital Signs Temp 98.0 F 07/26/20 08:00 Pulse 61 07/26/20 08:14 Resp 16 07/26/20 08:00 BP 140/64 H 07/26/20 08:14 Pulse Ox 99 07/26/20 08:00 Body Mass Index 32.3 Const: Other: Frail-appearing, sleepy Skin: Other: Ecchymosis in right leg Extrem: Other: Large palpable hematoma in upper leg right side, skin ecchymotic but not necrotic Progress Note: A&P Assessment and plan (1) Hematoma of right thigh: Status: Acute Assessment and Plan: Patient being followed for her hematoma of the right thigh. Patient was initially scheduled for Tuesday for evacuation of this hematoma however this is been postponed till Tuesday due to oral anticoagulation. Fall Risk Details Current Medications: Current Medications Generic Name Dose Route Start Last Admin Trade Name Freq PRN Reason Stop Dose Admin Atorvastatin Calcium 20 mg 07/24/20 21:00 07/25/20 20:53 Atorvastatin Calcium 20 Mg Tablet PO 20 mg BEDTIME SATINDER Administration Calcitriol 0.25 mcg 07/25/20 09:00 07/25/20 10:03 Calcitriol 0.25 Mcg Capsule PO 0.25 mcg MoWeFr SATINDER Administration Docusate Sodium 100 mg 07/25/20 21:00 07/25/20 20:53 Docusate Sodium 100 Mg Capsule PO 100 mg BEDTIME SATINDER Administration Ferrous Sulfate 324 mg 07/24/20 08:30 07/26/20 08:17 Ferrous Sulfate 324 Mg Tablet. PO 324 mg BIDPC SATINDER Administration Hydralazine HCl 100 mg 07/24/20 09:00 07/26/20 08:14 Hydralazine Hcl 50 Mg Tablet PO 100 mg BID SATINDER Administration Levofloxacin 250 mg in 50 mls @ 50 mls/hr 07/26/20 18:00 Levaquin IV Q24H SATINDER Metronidazole 500 mg in 100 mls @ 100 mls/hr 07/25/20 18:00 07/26/20 10:39 Flagyl IV 100 mls/hr Q8H SATINDER Administration Insulin Human Lispro 0 unit 07/24/20 07:30 07/25/20 12:35 Insulin Lispro 100 Unit/Ml 3 Ml Vial SUBCUT Not Given QIDACHS [facility] Isosorbide Mononitrate 30 mg 07/24/20 09:00 07/26/20 08:14 Isosorbide Mononitrate 30 Mg Tab.Er.24h PO 30 mg DAILY SATINDER Administration Protocol Meclizine HCl 25 mg 07/24/20 09:00 07/26/20 08:14 Meclizine Hcl 12.5 Mg Tablet PO 25 mg BID SATINDER Administration Memantine 10 mg 07/24/20 09:00 07/26/20 08:14 Memantine Hcl 10 Mg Tablet PO 10 mg BID SATINDER Administration Non-Formulary Medication 6 mg 07/24/20 09:00 Rivastigmine Tartrate PO BID [facility] Oxycodone HCl 5 mg 07/25/20 13:15 Oxycodone Hcl Immed Release 5 Mg Tablet PO Q4H PRN Pain, Moderate (Pain Scale 4-6 Pantoprazole Sodium 40 mg 07/24/20 16:30 07/26/20 05:49 Pantoprazole Sodium 40 Mg/10 Ml Vial IVPUSH 40 mg BID@0630,1630 [facility] Administration Pregabalin 50 mg 07/24/20 09:00 07/26/20 08:13 Pregabalin 50 Mg Capsule PO 50 mg TID SATINDER Administration Senna 8.6 mg 07/24/20 21:00 07/25/20 20:53 Sennosides 8.6 Mg Tablet PO 8.6 mg BEDTIME SATINDER Administration Senna 17.2 mg 07/25/20 21:00 07/25/20 20:53 Sennosides 8.6 Mg Tablet PO 17.2 mg BEDTIME SATINDER Administration Sertraline HCl 100 mg 07/24/20 09:00 07/26/20 08:14 Sertraline Hcl 100 Mg Tablet PO 100 mg DAILY [facility] Administration Sodium Chloride 3 ml 07/24/20 08:00 07/26/20 08:15 0.9 % Sodium Chloride Flush 3 Ml Syringe IVFLUSH 3 ml QSHIFT [facility] Administration Tiotropium [place] 1 puff 07/24/20 12:31 07/25/20 07:54 Tiotropium [place] 18 Mcg Cap.W.Dev INHALE Not Given RDAILY [facility] Vitamin D 25 mcg 07/24/20 09:00 07/26/20 08:13 Cholecalciferol (Vitamin D3) 25 Mcg Tablet PO 25 mcg DAILY SATINDER Administration Time Spent With Patient Time: Total time spent is greater than 50% in coordination of care (as documented) at patient's floor/unit and/or counseling patient: Time with patient: less than 15 minutes
[2020-07-26 11:34] LABS: Glucose, Whole Blood 89 mg/dL (60-115)
--- NOTE | 2020-07-26 12:20 | PM.HEMONCPN ---
Medical Summary - Medical Summary Date of Service: 07/26/20 Chief complaint: thrombocytopenia Interval History Interval history: Her platelets are now 98,000 without bleeding. Review of Systems - Constitutional Reports anorexia - Eyes Reports other - Respiratory Reports snoring - Gastrointestinal Reports bloating - Musculoskeletal Reports other - Integumentary/Breasts Skin/Breast: Reports bleeding lesions - Neurologic Denies focal weakness, Denies convulsions [facility] Medical History: Medical History (Last Updated 07/25/20 @ 14:57 by Jason Sung MD) (HFpEF) heart failure with preserved ejection fraction Afib Anemia Anxiety Aortic valve stenosis Asthma Basal cell carcinoma Benign essential hypertension Chronic kidney disease, stage 4 (severe) COPD (chronic obstructive pulmonary disease) Diabetic polyneuropathy Fracture Gallstones Melanoma Mild cognitive impairment with memory loss Obesity (BMI 30-39.9) Paroxysmal atrial fibrillation Pure hypercholesterolemia Thrombocytopenia Type 2 diabetes mellitus with diabetic chronic kidney disease Family History: Family History (Last Reviewed 07/24/20 @ 18:03 by Jason Sung MD) Father Medical history unknown Mother Acute myeloid leukemia Cancer Maternal Grandmother Myocardial infarction Brother Myocardial infarction Sister Brain aneurysm Surgical History: Surgical History (Last Reviewed 07/24/20 @ 18:03 by Jason Sung MD) History of cardiac catheterization History of colonoscopy History of eye surgery 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) Stented coronary artery Social History: Social History (Last Reviewed 07/24/20 @ 18:03 by Jason Sung MD) Living Situation History: Household Members: Spouse Household Members: Family Housing: House Alcohol History: Alcohol intake: never Alcohol History Details: Alcohol intake frequency: holiday/special occasion Tobacco History: Tobacco Type: Cigarette Packs Per Day: 0.5 Occupation Assessmet: service: No Current occupational status: retired Smoking status: Never smoker Oncology Screenings - G8 Geriatric Assessment Body Mass Index: 23 or greater Patient's assessment of health status compared to others: Not as good Patient age: < 80 G8 Score: 5 G8 Risk Level: High risk for early functional decline and reduced survival. Home Medications and Allergies Current Medications: Current Medications Generic Name Dose Route Start Last Admin Trade Name Freq PRN Reason Stop Dose Admin Atorvastatin Calcium 20 mg 07/24/20 21:00 07/25/20 20:53 Atorvastatin Calcium 20 Mg Tablet PO 20 mg BEDTIME SATINDER Administration Calcitriol 0.25 mcg 07/25/20 09:00 07/25/20 10:03 Calcitriol 0.25 Mcg Capsule PO 0.25 mcg MoWeFr SATINDER Administration Docusate Sodium 100 mg 07/25/20 21:00 07/25/20 20:53 Docusate Sodium 100 Mg Capsule PO 100 mg BEDTIME SATINDER Administration Ferrous Sulfate 324 mg 07/24/20 08:30 07/26/20 08:17 Ferrous Sulfate 324 Mg Tablet.Dr PO 324 mg BIDPC SATINDER Administration Hydralazine HCl 100 mg 07/24/20 09:00 07/26/20 08:14 Hydralazine Hcl 50 Mg Tablet PO 100 mg BID SATINDER Administration Levofloxacin 250 mg in 50 mls @ 50 mls/hr 07/26/20 18:00 Levaquin IV Q24H SATINDER Metronidazole 500 mg in 100 mls @ 100 mls/hr 07/25/20 18:00 07/26/20 10:39 Flagyl IV 100 mls/hr Q8H SATINDER Administration Insulin Human Lispro 0 unit 07/24/20 07:30 07/25/20 12:35 Insulin Lispro 100 Unit/Ml 3 Ml Vial SUBCUT Not Given QIDACHS SATINDER Isosorbide Mononitrate 30 mg 07/24/20 09:00 07/26/20 08:14 Isosorbide Mononitrate 30 Mg Tab.Er.24h PO 30 mg DAILY SATINDER Administration Protocol Meclizine HCl 25 mg 07/24/20 09:00 07/26/20 08:14 Meclizine Hcl 12.5 Mg Tablet PO 25 mg BID SATINDER Administration Memantine 10 mg 07/24/20 09:00 07/26/20 08:14 Memantine Hcl 10 Mg Tablet PO 10 mg BID SATINDER Administration Non-Formulary Medication 6 mg 07/24/20 09:00 Rivastigmine Tartrate PO BID [facility] Oxycodone HCl 5 mg 07/25/20 13:15 Oxycodone Hcl Immed Release 5 Mg Tablet PO Q4H PRN Pain, Moderate (Pain Scale 4-6 Pantoprazole Sodium 40 mg 07/24/20 16:30 07/26/20 05:49 Pantoprazole Sodium 40 Mg/10 Ml Vial IVPUSH 40 mg BID@0630,1630 SATINDER Administration Pregabalin 50 mg 07/24/20 09:00 07/26/20 08:13 Pregabalin 50 Mg Capsule PO 50 mg TID [facility] Administration Senna 8.6 mg 07/24/20 21:00 07/25/20 20:53 Sennosides 8.6 Mg Tablet PO 8.6 mg BEDTIME SATINDER Administration Senna 17.2 mg 07/25/20 21:00 07/25/20 20:53 Sennosides 8.6 Mg Tablet PO 17.2 mg BEDTIME [facility] Administration Sertraline HCl 100 mg 07/24/20 09:00 07/26/20 08:14 Sertraline Hcl 100 Mg Tablet PO 100 mg DAILY SATINDER Administration Sodium Chloride 3 ml 07/24/20 08:00 07/26/20 08:15 0.9 % Sodium Chloride Flush 3 Ml Syringe IVFLUSH 3 ml QSHIFT [facility] Administration Tiotropium [place] 1 puff 07/24/20 12:31 07/26/20 11:26 Tiotropium [place] 18 Mcg Cap.W.Dev INHALE Not Given RDAILY [facility] Vitamin D 25 mcg 07/24/20 09:00 07/26/20 08:13 Cholecalciferol (Vitamin D3) 25 Mcg Tablet PO 25 mcg DAILY SATINDER Administration Home Medications Medication Instructions Recorded Confirmed Type acetaminophen 650 mg PO Q4H PRN 03/05/20 07/23/20 History calcitriol 0.25 mcg PO 3XW 03/05/20 07/23/20 History cholecalciferol (vitamin D3) 2,000 unit PO DAILY 03/05/20 07/23/20 History memantine [Namenda XR] 21 mg PO DAILY 03/05/20 07/23/20 History nitroglycerin [Nitrostat] 0.4 mg SUBLINGUAL Q5M PRN 03/05/20 07/23/20 History rivastigmine tartrate 6 mg PO BID 03/05/20 07/23/20 History sennosides [senna] 8.6 mg PO BEDTIME 03/05/20 07/23/20 History sertraline 100 mg PO DAILY 03/05/20 07/23/20 History albuterol sulfate 90 mcg/actuation 2 puff INHALATION Q6H PRN g 04/06/20 07/23/20 History aerosol inhaler apixaban 2.5 mg tablet 2.5 mg PO BID 04/23/20 07/23/20 History amlodipine 5 mg tablet 5 mg PO DAILY 05/09/20 07/23/20 History meclizine 25 mg PO BID 05/19/20 07/23/20 History umeclidinium 62.5 mcg/actuation 1 inh INHALATION BEDTIME 06/10/20 07/23/20 History blister powder for inhalation ferrous sulfate 325 mg (65 mg 325 mg PO BID tab 07/23/20 07/23/20 History iron) tablet Allergies Allergy/AdvReac Type Severity Reaction Status Date / Time Penicillins [PENICILLINS] Allergy Severe HIVES/SWELL Verified 07/23/20 13:39 ING Exam Vital signs: Vital Signs Temp 98.0 F 07/26/20 08:00 Pulse 61 07/26/20 08:14 Resp 16 07/26/20 08:00 BP 140/64 H 07/26/20 08:14 Pulse Ox 99 07/26/20 08:00 Intake & Output 07/25/20 07/26/20 07/26/20 18:59 06:59 18:59 Intake Total 160 / 360 200 / 360 Output Total 600 / 600 Balance 160 / -240 -400 / -240 Urine Output (Average ml/kg/hr) 0.69 Intake: Intake, Oral Amount 60 / 60 Intake, IV Amount 100 / 300 200 / 300 levoFLOXacin/D5W 500 mg In 100 100 / 100 ml @ 100 mls/hr IV ONCE ONE Rx# :[id number] metroNIDAZOLE/NS 500 mg In 100 100 / 200 100 / 200 ml @ 100 mls/hr IV Q8H [facility] Rx#: [id number] Output: Output, Urine Amount 600 / 600 Other: NPO No Number of Incontinent Voids 1 Urine purewick Urine Color Yellow [place] Weight 72.575 kg Weight 72.575 kg Body Mass Index 32.3 - Constitutional Present: no acute distress, mild distress - Routine HEENT Exam Head: Present: atraumatic - Routine Respiratory Exam Present: CTAB - Routine Cardiovascular Exam Cardiovascular: Present: S1, S2 - Routine Abdominal Exam Present: diminished bowel sounds, soft - Routine Exam Patient deferred: external exam - Routine Neurological Exam Present: oriented X3 Data - Labs CBC & Chem 7: 07/26/20 04:41 07/26/20 04:41 Labs: 07/23/20 18:49 Occult Blood, Stool x1 [OBSX1] Stat 07/23/20 18:57 ECG 12 lead EKG Stat EKG Documentation DIRECTED 07/23/20 19:15 XR femur RT 2V Stat 07/23/20 19:23 Antibody Identification Stat Antigen Identification Stat Red Blood Cells Stat Type and Screen Stat Troponin-I High Sensitivity Stat 07/23/20 19:26 COVID-19 ID NOW ([place]) Stat 07/23/20 22:38 Troponin-I High Sensitivity Stat 07/23/20 23:26 Pantoprazole Sodium [Protonix] 40 mg IVPUSH ONCE ONE 07/24/20 CT cervical spine wo con Stat CT head/brain wo con Stat 07/24/20 00:32 Acetaminophen Supp [Tylenol Supp] 650 mg [place] Q6H PRN 07/24/20 01:49 NPO Diet 07/24/20 04:07 Transfer Order Routine 07/24/20 06:30 Omeprazole [PriLOSEC] 20 mg PO DAILY@0630 Pantoprazole Sodium [Protonix] 40 mg IVPUSH DAILY@0630 07/24/20 08:00 Tiotropium [place] [Spiriva] 1 puff INHALE RDAILY 07/24/20 08:35 Basic Metabolic Panel DAILY Complete Blood Count Auto Diff DAILY@0600 Creatine Kinase Total Routine Ferritin Routine IRON PROFILE Routine Liver Panel Routine SLIDE REVIEW Routine Vitamin B12 and Folate Routine 07/24/20 09:00 Amiodarone HCL [Cordarone] 200 mg PO DAILY 07/24/20 09:21 Add Laboratory Test Urgent 07/24/20 09:56 Add Laboratory Test Urgent 07/24/20 17:06 Glucose, Whole Blood Routine 07/24/20 18:03 Clear Liquid Diet 07/24/20 19:58 Complete Blood Count no Diff Routine 07/24/20 20:26 Glucose, Whole Blood Routine 07/25/20 US abdomen complete Routine 07/25/20 05:30 Complete Blood Count Auto Diff Routine Liver Panel Routine Prothrombin Time INR Routine SLIDE REVIEW Routine Thyroid Stimulating Hormone Routine 07/25/20 07:30 CA echo transthoracic complete Routine 07/25/20 07:44 Glucose, Whole Blood Routine 07/25/20 09:00 CT femur RT wo con Routine 07/25/20 09:21 Hepatitis A,B,C Profile Urgent 07/25/20 10:38 ceFAZolin Sodium/Dextrose,Iso [Ancef] 2 gm in 50 ml IV PREOP 07/25/20 11:31 Glucose, Whole Blood Routine 07/25/20 15:27 Glucose, Whole Blood Routine 07/25/20 16:45 levoFLOXacin/D5W [Levaquin] 500 mg in 100 ml IV ONCE 07/25/20 20:30 Glucose, Whole Blood Routine 07/26/20 04:41 Basic Metabolic Panel DAILY@0600 Complete Blood Count no Diff DAILY@0600 07/26/20 08:16 Glucose, Whole Blood Routine 07/26/20 11:31 Glucose, Whole Blood Routine Laboratory Last Values WBC 7.9 X10*3/uL (4.8-10.8) 07/26/20 04:41 RBC 3.58 X10*6/uL (4.20-5.50) L 07/26/20 04:41 Hgb 10.5 g/dl (12.0-16.0) L 07/26/20 04:41 Hct 33.5 % (37-47) L 07/26/20 04:41 MCV 93.6 fL (80-98) 07/26/20 04:41 MCH 29.3 pg (27.0-33.0) 07/26/20 04:41 MCHC 31.3 g/dl (31.0-35.0) 07/26/20 04:41 RDW 15.8 % (11.0-16.0) 07/26/20 04:41 Plt Count 98 X10*3/uL (160-400) L D 07/26/20 04:41 MPV 12.5 fL (9.4-12.3) H 07/26/20 04:41 Immature Gran % (Auto) 1.0 % (0.0-0.4) H 07/25/20 05:30 Neut % (Auto) 78.7 % (45-73) H 07/25/20 05:30 Lymph % (Auto) 6.9 % (20-40) L 07/25/20 05:30 [place] % (Auto) 13.2 % (2-11) H 07/25/20 05:30 Eos % (Auto) 0.0 % (0-4) 07/25/20 05:30 Baso % (Auto) 0.2 % (0-2) 07/25/20 05:30 Lymph # (Auto) 0.6 X10*3/uL (1.2-4.9) L 07/25/20 05:30 [place] # (Auto) 1.1 X10*3/uL (0.1-1.2) 07/25/20 05:30 Eos # (Auto) 0.0 X10*3/uL (0.0-0.4) 07/25/20 05:30 Baso # (Auto) 0.0 X10*3/uL (0.0-0.2) 07/25/20 05:30 Abs Immat Gran (auto) 0.08 X10*3/uL (0.00-0.03) H 07/25/20 05:30 Absolute Neuts (auto) 6.4 X10*3/uL (2.0-8.3) 07/25/20 05:30 Absolute Nucleated RBC 0.000 X10*3/uL (0.0-0.012) 07/26/20 04:41 Nucleated RBC % (auto) 0.0 /100WBC (0.0-0.2) 07/26/20 04:41 Smear Tech's Comments VERIFIED 07/25/20 05:30 PT 16.6 SEC (10.8-13.0) H 07/25/20 05:30 INR 1.4 (0.9-1.1) H 07/25/20 05:30 Sodium 145 mmol/L (135-145) 07/26/20 04:41 Potassium 4.1 mmol/L (3.3-5.1) 07/26/20 04:41 Chloride 110 mmol/L (96-108) H 07/26/20 04:41 Carbon Dioxide 25 mmol/L (22-29) 07/26/20 04:41 Anion Gap 14 (12-20) 07/26/20 04:41 BUN 33 mg/dL (9-16) H 07/26/20 04:41 Creatinine 1.55 mg/dL (0.5-1.4) H 07/26/20 04:41 Estim Creat Clear Calc 26.4 07/26/20 04:41 Estimated GFR 32 07/26/20 04:41 POC Glucose 89 mg/dL (60-115) 07/26/20 11:31 Random Glucose 63 mg/dL (60-115) 07/26/20 04:41 Calcium 8.4 mg/dL (8.4-10.2) 07/26/20 04:41 Iron 169 mcg/dL (30-160) H 07/24/20 08:35 TIBC 290 mcg/dL (228-428) 07/24/20 08:35 % Saturation 58 % (15-50) H 07/24/20 08:35 Unsat Iron Binding 121 ug/dL 07/24/20 08:35 Ferritin 114 ng/mL (10-250) 07/24/20 08:35 Total Bilirubin 1.1 mg/dL (0.0-1.0) H 07/25/20 05:30 Direct Bilirubin 0.7 mg/dL (0.0-0.5) H 07/25/20 05:30 AST 349 U/L (5-31) H 07/25/20 05:30 ALT 364 U/L (0-31) H 07/25/20 05:30 Alkaline Phosphatase 83 U/L (39-117) 07/25/20 05:30 Total Creatine Kinase 46 U/L (26-140) 07/24/20 08:35 Troponin I High Sens 1202.0 ng/L (<3.5-17.0) H 07/24/20 01:13 Total Protein 5.3 g/dL (6.5-8.0) L 07/25/20 05:30 Albumin 2.9 g/dL (3.5-5.0) L 07/25/20 05:30 Vitamin B12 1113 pg/mL (200-900) H 07/24/20 08:35 Folate > 20.0 ng/mL (> or = 4.0) 07/24/20 08:35 TSH 1.07 uIU/mL (0.32-4.0) 07/25/20 05:30 Stool Occult Blood POS (NEG) 07/23/20 18:49 COVID-19 (TAISHA) Negative (Negative) 07/23/20 19:26 COVID-19 Clin Com See Note 07/23/20 19:26 Hepatitis A IgM Ab Nonreactive (Nonreactive) 07/25/20 09:21 Hep Bs Antigen Negative (Negative) 07/25/20 09:21 Hep Bs Antibody NONREACTIVE (Nonreactive) 07/25/20 09:21 Hep B Core Total Ab Nonreactive (Nonreactive) 07/25/20 09:21 Hepatitis C Ab (EIA) Nonreactive (Nonreactive) 07/25/20 09:21 Blood Type A Positive 07/23/20 19:23 Antibody Screen POSITIVE 07/23/20 19:23 Antibody Identification Inconclusive Anti-K Anti-c 07/23/20 19:23 Antibody Identification Inconclusive Anti-K Anti-c 07/23/20 19:23 Antibody Identification Inconclusive Anti-K Anti-c 07/23/20 19:23 Antigen Identification E Antigen - NEGATIVE K Antigen - NEGATIVE c Antigen - NEGATIVE 07/23/20 19:23 Antigen Identification E Antigen - NEGATIVE K Antigen - NEGATIVE c Antigen - NEGATIVE 07/23/20 19:23 Antigen Identification E Antigen - NEGATIVE K Antigen - NEGATIVE c Antigen - NEGATIVE 07/23/20 19:23 Crossmatch See Detail 07/23/20 19:23 Crossmatch (AHG) See Detail 07/23/20 19:23 - Imaging Radiologist's impression: ITS Impressions Femur X-Ray 07/23/20 19:15 IMPRESSION: 1. No radiographic evidence of acute fracture or subluxation involving the right femur. 2. Marked progressive tricompartmental degenerative changes of the right knee. Head CT 07/24/20 01:57 IMPRESSION: 1. No acute intracranial finding. 2. No acute fracture or malalignment of the cervical spine. Mild degenerative change. Cervical Spine CT 07/24/20 01:58 IMPRESSION: 1. No acute intracranial finding. 2. No acute fracture or malalignment of the cervical spine. Mild degenerative change. Abdomen Ultrasound 07/25/20 08:30 IMPRESSION: Upper normal-size gallbladder with gallstones. Gallbladder wall thickening and edema. The laboratory technologist reports the patient is tender over the gallbladder. Ultrasound appearance is concerning for acute cholecystitis. Slightly echogenic liver. Left renal stones. Limited visualization of the pancreas. Femur CT 07/25/20 09:00 IMPRESSION: High attenuation soft tissue mass in the subcutaneous fat of the right distal medial thigh just above the knee suggestive of a hematoma. There is diffuse stranding of the subcutaneous fat and some overlying skin thickening. Severe arthritis at the knee joint and mild arthritis at the right hip joint. 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 Progress Note: A/P (1) Hematoma Start date: 07/26/20 (Her platelets are 98,000. No change in therapy is needed.) Status: Acute - Time Spent With Patient Total time spent is greater than 50% in coordination of care (as documented) at patient's floor/unit and/or counseling patient: 15 - 24 minutes
--- NOTE | 2020-07-26 14:13 | HO.PM.IMPN ---
Subjective Subjective Date of Service: 07/26/20 Interval History: seen and examined this AM pain controlled no other complaints ROS General - no fevers or chills Cardiovascular - no chest pain Respiratory - no shortness of breath or cough Abdominal- no abdominal pain, nausea, vomiting, diarrhea Physical Exam Vital Signs: Vital Signs: Last Vital Signs Temp 97.9 F 07/26/20 12:00 Pulse 70 07/26/20 12:00 Resp 16 07/26/20 12:00 BP 133/63 07/26/20 12:00 Pulse Ox 98 07/26/20 12:00 Body Mass Index 32.3 Const: Other: General - no acute distress, appears comfortable Cardiovascular - regular rate and rhythm, S1-S2 Lungs - normal respiratory effort, clear to auscultation bilaterally, no wheezing Abdomen - soft, nontender, no rebound or guarding Extremities - R medial thigh with significant induratin and TTP; ecchymosis Neuro - awake and alert, no focal deficits Objective Data Current Medications Generic Name Dose Route Start Last Admin Trade Name Freq PRN Reason Stop Dose Admin Atorvastatin Calcium 20 mg 07/24/20 21:00 07/25/20 20:53 Atorvastatin Calcium 20 Mg Tablet PO 20 mg BEDTIME SATINDER Administration Calcitriol 0.25 mcg 07/25/20 09:00 07/25/20 10:03 Calcitriol 0.25 Mcg Capsule PO 0.25 mcg MoWeFr SATINDER Administration Docusate Sodium 100 mg 07/25/20 21:00 07/25/20 20:53 Docusate Sodium 100 Mg Capsule PO 100 mg BEDTIME SATINDER Administration Ferrous Sulfate 324 mg 07/24/20 08:30 07/26/20 08:17 Ferrous Sulfate 324 Mg Tablet. PO 324 mg BIDPC SATINDER Administration Hydralazine HCl 100 mg 07/24/20 09:00 07/26/20 08:14 Hydralazine Hcl 50 Mg Tablet PO 100 mg BID SATINDER Administration Levofloxacin 250 mg in 50 mls @ 50 mls/hr 07/26/20 18:00 Levaquin IV Q24H SATINDER Metronidazole 500 mg in 100 mls @ 100 mls/hr 07/25/20 18:00 07/26/20 13:32 Flagyl IV Infused Q8H SATINDER Infusion Insulin Human Lispro 0 unit 07/24/20 07:30 07/25/20 12:35 Insulin Lispro 100 Unit/Ml 3 Ml Vial SUBCUT Not Given QIDACHS [facility] Isosorbide Mononitrate 30 mg 07/24/20 09:00 07/26/20 08:14 Isosorbide Mononitrate 30 Mg Tab.Er.24h PO 30 mg DAILY SATINDER Administration Protocol Meclizine HCl 25 mg 07/24/20 09:00 07/26/20 08:14 Meclizine Hcl 12.5 Mg Tablet PO 25 mg BID SATINDER Administration Memantine 10 mg 07/24/20 09:00 07/26/20 08:14 Memantine Hcl 10 Mg Tablet PO 10 mg BID SATINDER Administration Non-Formulary Medication 6 mg 07/24/20 09:00 Rivastigmine Tartrate PO BID [facility] Oxycodone HCl 5 mg 07/25/20 13:15 Oxycodone Hcl Immed Release 5 Mg Tablet PO Q4H PRN Pain, Moderate (Pain Scale 4-6 Pantoprazole Sodium 40 mg 07/24/20 16:30 07/26/20 05:49 Pantoprazole Sodium 40 Mg/10 Ml Vial IVPUSH 40 mg BID@0630,1630 SATINDER Administration Pregabalin 50 mg 07/24/20 09:00 07/26/20 08:13 Pregabalin 50 Mg Capsule PO 50 mg TID SATINDER Administration Senna 8.6 mg 07/24/20 21:00 07/25/20 20:53 Sennosides 8.6 Mg Tablet PO 8.6 mg BEDTIME SATINDER Administration Senna 17.2 mg 07/25/20 21:00 07/25/20 20:53 Sennosides 8.6 Mg Tablet PO 17.2 mg BEDTIME SATINDER Administration Sertraline HCl 100 mg 07/24/20 09:00 07/26/20 08:14 Sertraline Hcl 100 Mg Tablet PO 100 mg DAILY [facility] Administration Sodium Chloride 3 ml 07/24/20 08:00 07/26/20 08:15 0.9 % Sodium Chloride Flush 3 Ml Syringe IVFLUSH 3 ml QSHIFT [facility] Administration Tiotropium [place] 1 puff 07/24/20 12:31 07/26/20 11:26 Tiotropium [place] 18 Mcg Cap.W.Dev INHALE Not Given RDAILY [facility] Vitamin D 25 mcg 07/24/20 09:00 07/26/20 08:13 Cholecalciferol (Vitamin D3) 25 Mcg Tablet PO 25 mcg DAILY SATINDER Administration Labs CBC & Chem 7: 07/26/20 04:41 07/26/20 04:41 Assessment and Plan (1) Hematoma of right thigh: Status: Acute Assessment and Plan: This is a 79 yo F with a PMH of HTN, HLD, DM, A. Fib on Eliquis who presented after a mechanical fall and was diagnosed with acute blood loss anemia secondry to R medial thigh hematoma. 1. Acute Blood Loss Anemia secondary to R thigh hematoma s/p 2 units PRBCs; h/h stable plan for operative evacuation of hematoma, but on hold due to recent Eliquis use. Plan for OR Tuesday. 2. Thromcytopnia chornic monitor transfuse if bleeding 3. LINDA on CKD stage 3/4 SCr 2.11 upon admisison; down to 1.55 now monitor 4. DM sliding scale poc qidac 5. PAF currently in sinus continue baseline meds except eliquis 6. Positive occult blood GI input appreciated outpatient f/u in GI clinic Full Code DVT pptx, mechanical (if she can tolerate); cannot to pharmacologic due to acute bleed
--- NOTE | 2020-07-26 14:57 | W.MHC.F2F ---
Service Date Service Date: 07/26/20 Encounter Date of encounter: 07/26/20 Reasons for Services Reason for long-term: other (admin lovenox and check INR, start 07/27/2020) Reason for physical therapy: home safety and mobility MD Overseeing Care: Bessie Barrett Homebound: Leaving the home is medically contraindicated at this time without the asist of a device and/or another person due th the listed conditions above and below. Reason homebound: unsteady gait / fall risk Certification: Based on the above findings, I certify that this patient is confined to the home and needs intermittent long-term care, physical therapy and/or speech therapy, or continues to need occupational therapy. The patient is under my care, and I have initiated the establishment of the plan of care. The patient will be followed by a physician who will periodically review the plan of care.
[2020-07-26 16:36] LABS: Glucose, Whole Blood 86 mg/dL (60-115)
[2020-07-26 20:46] LABS: Glucose, Whole Blood 131 mg/dL (60-115)
[2020-07-26] MEDS: Sennosides 8.6 MG TABLET 17.2 MG PO (21:41)
[2020-07-26] MEDS: Docusate Sodium 100 MG CAPSULE PO (21:41)
[2020-07-26] MEDS: Atorvastatin Calcium 20 MG TABLET PO (21:42)
--- NOTE | 2020-07-26 22:27 | P.CNID_ITS ---
History of Present Illness Data of Consult Service Date: 07/26/20 Requesting physician: Amber Turk Primary Care Provider: Anthony Titus MD HPI Reason for consult: possible infection She presents with fatigue and pain left hip. She has left hip hematoma She also has some elevated LFTs and discomfort gallbladder. She has no fever or chills Review of Systems Review of Systems: Yes all other systems are reviewed and are negative [facility] Past Medical History Medical History (Updated 07/31/20 @ 11:58 by Petra Oakes MD) (HFpEF) heart failure with preserved ejection fraction Afib Anemia Anxiety Aortic valve stenosis Asthma Bacteremia Bacteremia Basal cell carcinoma Benign essential hypertension Chronic kidney disease, stage 4 (severe) COPD (chronic obstructive pulmonary disease) Diabetic polyneuropathy Fracture Gallstones Melanoma Mild cognitive impairment with memory loss Obesity (BMI 30-39.9) Paroxysmal atrial fibrillation Pure hypercholesterolemia Thrombocytopenia Type 2 diabetes mellitus with diabetic chronic kidney disease Family History Family History Father Medical history unknown Mother Acute myeloid leukemia Cancer Maternal Grandmother Myocardial infarction Brother Myocardial infarction Sister Brain aneurysm Family history: reviewed and not pertinent Surgical History Surgical History History of cardiac catheterization History of colonoscopy History of eye surgery 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) Stented coronary artery Social History Social History Household Members: Spouse and Family Housing: House Alcohol intake: never Smoking Status: Former smoker Tobacco Type: Cigarette Packs Per Day: 0.5 Years Smoked: 19 service: No Current occupational status: retired Meds Allergies Allergy/AdvReac Type Severity Reaction Status Date / Time Penicillins [PENICILLINS] Allergy Severe HIVES/SWELL Verified 07/23/20 13:39 ING Active Medications: Current Medications Generic Name Dose Route Start Last Admin Trade Name Freq PRN Reason Stop Dose Admin Atorvastatin Calcium 20 mg 07/24/20 21:00 07/26/20 21:42 Atorvastatin Calcium 20 Mg Tablet PO 20 mg BEDTIME SATINDER Administration Calcitriol 0.25 mcg 07/25/20 09:00 07/25/20 10:03 Calcitriol 0.25 Mcg Capsule PO 0.25 mcg MoWeFr [facility] Administration Docusate Sodium 100 mg 07/25/20 21:00 07/26/20 21:41 Docusate Sodium 100 Mg Capsule PO 100 mg BEDTIME SATINDER Administration Ferrous Sulfate 324 mg 07/24/20 08:30 07/26/20 19:11 Ferrous Sulfate 324 Mg Tablet. PO 324 mg BIDPC [facility] Administration Hydralazine HCl 100 mg 07/24/20 09:00 07/26/20 21:34 Hydralazine Hcl 50 Mg Tablet PO Not Given BID [facility] Insulin Human Lispro 0 unit 07/24/20 07:30 07/25/20 12:35 Insulin Lispro 100 Unit/Ml 3 Ml Vial SUBCUT Not Given QIDACHS [facility] Isosorbide Mononitrate 30 mg 07/24/20 09:00 07/26/20 08:14 Isosorbide Mononitrate 30 Mg Tab.Er.24h PO 30 mg DAILY [facility] Administration Protocol Meclizine HCl 25 mg 07/24/20 09:00 07/26/20 21:42 Meclizine Hcl 12.5 Mg Tablet PO 25 mg BID [facility] Administration Memantine 10 mg 07/24/20 09:00 07/26/20 21:42 Memantine Hcl 10 Mg Tablet PO 10 mg BID [facility] Administration Non-Formulary Medication 6 mg 07/24/20 09:00 Rivastigmine Tartrate PO BID [facility] Omeprazole 20 mg 07/27/20 06:30 Omeprazole 20 Mg Capsule. PO DAILY@0630 [facility] Oxycodone HCl 5 mg 07/25/20 13:15 Oxycodone Hcl Immed Release 5 Mg Tablet PO Q4H PRN Pain, Moderate (Pain Scale 4-6 Pregabalin 50 mg 07/24/20 09:00 07/26/20 21:42 Pregabalin 50 Mg Capsule PO 50 mg TID [facility] Administration Senna 17.2 mg 07/25/20 21:00 07/26/20 21:41 Sennosides 8.6 Mg Tablet PO 17.2 mg BEDTIME [facility] Administration Sertraline HCl 100 mg 07/24/20 09:00 07/26/20 08:14 Sertraline Hcl 100 Mg Tablet PO 100 mg DAILY [facility] Administration Sodium Chloride 3 ml 07/24/20 08:00 07/26/20 19:40 0.9 % Sodium Chloride Flush 3 Ml Syringe IVFLUSH Not Given QSHIFT [facility] Tiotropium Waka 1 puff 07/24/20 12:31 07/26/20 11:26 Tiotropium Waka 18 Mcg Cap.W.Dev INHALE Not Given RDAILY [facility] Vitamin D 25 mcg 07/24/20 09:00 07/26/20 08:13 Cholecalciferol (Vitamin D3) 25 Mcg Tablet PO 25 mcg DAILY [facility] Administration Home Medications Medication Instructions Recorded Confirmed Last Taken Type acetaminophen 650 mg PO Q4H PRN 03/05/20 07/23/20 Unknown History calcitriol 0.25 mcg PO 3XW 03/05/20 07/23/20 Unknown History cholecalciferol (vitamin D3) 2,000 unit PO DAILY 03/05/20 07/23/20 03/04/20 History memantine [Namenda XR] 21 mg PO DAILY 03/05/20 07/23/20 03/04/20 History nitroglycerin [Nitrostat] 0.4 mg SUBLINGUAL Q5M PRN 03/05/20 07/23/20 Unknown History rivastigmine tartrate 6 mg PO BID 03/05/20 07/23/20 03/04/20 History sennosides [senna] 8.6 mg PO BEDTIME 03/05/20 07/23/20 03/03/20 History sertraline 100 mg PO DAILY 03/05/20 07/23/20 03/04/20 History albuterol sulfate 90 mcg/actuation 2 puff INHALATION Q6H PRN g 04/06/20 07/23/20 Unknown History aerosol inhaler apixaban 2.5 mg tablet 2.5 mg PO BID 04/23/20 07/23/20 Unknown History amlodipine 5 mg tablet 5 mg PO DAILY 05/09/20 07/23/20 Unknown History meclizine 25 mg PO BID 05/19/20 07/23/20 Unknown History umeclidinium 62.5 mcg/actuation 1 inh INHALATION BEDTIME 06/10/20 07/23/20 Unknown History blister powder for inhalation ferrous sulfate 325 mg (65 mg 325 mg PO BID tab 07/23/20 07/23/20 Unknown History iron) tablet Physical Exam Vital Signs: Vital Signs: Last Vital Signs Temp 98.7 F 07/26/20 19:14 Pulse 70 07/26/20 19:14 Resp 18 07/26/20 19:14 BP 110/58 L 07/26/20 21:34 Pulse Ox 96 07/26/20 19:14 Body Mass Index 32.3 Const: General: cooperative Orientation/consciousness: patient oriented x3 HENMT: Head: Yes normal to inspection Mouth: Normal oral and palatal mucosa present Eyes: General: appearance normal, both eyes and all related structures Resp: Effort & Inspection: normal respiratory effort Cardio: Rate: regular rate Rhythm: regular rhythm GI: Palpation (GI): Soft to palpation and nontender : General: Yes no CVA tenderness Back/Spine/Pelvis: Back: no CVA tenderness Skin: General skin exam: no rashes or lesions noted Neuro: General: patient oriented x3 Extrem: General: Yes normal to inspection Results Labs CBC & Chem 7: 07/31/20 03:52 07/31/20 03:52 Labs: Short CBC 07/26/20 Range/Units 04:41 WBC 7.9 (4.8-10.8) X10*3/uL Hgb 10.5 L (12.0-16.0) g/dl Hct 33.5 L (37-47) % Plt Count 98 L D (160-400) X10*3/uL BMP 07/26/20 04:41 Sodium 145 Potassium 4.1 Chloride 110 H Carbon Dioxide 25 BUN 33 H Creatinine 1.55 H Calcium 8.4 Assessment and Plan (1) Gallstones: Problem details: Patient has no pain today She has elevated LFT so concern over choleystitis Status: Acute Continue follow LFTs If pain recurs or bacteremia restart Levaquin and Flagyl if tolerated (2) Hematoma of right thigh: Qualifiers: Encounter type: initial encounter Qualified Code(s): S70.11XA - Contusion of right thigh, initial encounter Problem details: POD #1 s/p incision and drainage of right thigh hematoma Status: Acute
[2020-07-27] VITALS (9 sets, daily range): BP systolic 107–182; BP diastolic 52–81; PULSE 63–71; RESP 17–20; TEMP 36.4–37; O2SAT 96–978
[2020-07-27] MEDS: Omeprazole 20 MG CAPSULE.DR PO (05:28)
[2020-07-27 08:10] LABS: Glucose, Whole Blood 94 mg/dL (60-115)
[2020-07-27 08:28] LABS: Alanine Aminotransferase 482 U/L (0-31); Albumin Level 2.8 g/dL (3.5-5.0); Alkaline Phosphatase 82 U/L (39-117); Aspartate Amino Transferase 510 U/L (5-31); Bilirubin Direct 0.7 mg/dL (0.0-0.5); Bilirubin Total 1.1 mg/dL (0.0-1.0); Total Protein 5.2 g/dL (6.5-8.0)
[2020-07-27] MEDS: Sertraline HCL 100 MG TABLET PO (10:14)
[2020-07-27] MEDS: Pregabalin 50 MG CAPSULE PO ×2 (10:14→15:26)
[2020-07-27] MEDS: hydrALAZINE HCl 50 MG TABLET 100 MG PO (10:14)
[2020-07-27] MEDS: Isosorbide Mononitrate 30 MG TAB.ER.24H PO (10:14)
[2020-07-27] MEDS: Cholecalciferol (Vitamin D3) 25 MCG TABLET PO (10:14)
[2020-07-27] MEDS: 0.9 % Sodium Chloride Flush 3 ML SYRINGE IVFLUSH ×3 (10:15→23:43)
[2020-07-27] MEDS: Meclizine HCl 12.5 MG TABLET 25 MG PO (10:15)
[2020-07-27] MEDS: Ferrous Sulfate 324 MG TABLET.DR PO ×2 (10:15→17:22)
[2020-07-27] MEDS: Memantine HCl 10 MG TABLET PO (10:15)
[2020-07-27 11:15] LABS: Hematocrit 33.7 % (37-47); Hemoglobin 10.4 g/dl (12.0-16.0); Mean Corpuscular HGB Conc 30.9 g/dl (31.0-35.0); Mean Corpuscular Hemoglobin 29.8 pg (27.0-33.0); Mean Corpuscular Volume 96.6 fL (80-98); Mean Platelet Volume 11.4 fL (9.4-12.3); Platelet Count 120 X10*3/uL (160-400); Red Blood Count 3.49 X10*6/uL (4.20-5.50); Red Cell Distribution Width 15.9 % (11.0-16.0); White Blood Count 7.1 X10*3/uL (4.8-10.8)
[2020-07-27 11:49] LABS: Alanine Aminotransferase 410 U/L (0-31); Albumin Level 2.8 g/dL (3.5-5.0); Alkaline Phosphatase 81 U/L (39-117); Anion Gap 11 (12-20); Aspartate Amino Transferase 321 U/L (5-31); Bilirubin Direct 0.5 mg/dL (0.0-0.5); Bilirubin Total 0.9 mg/dL (0.0-1.0); Blood Urea Nitrogen 41 mg/dL (9-16); Calcium 8.2 mg/dL (8.4-10.2); Carbon Dioxide 27 mmol/L (22-29); Chloride 111 mmol/L (96-108); Creatinine Clr Calc Pharmacy 22.8; Estimated Glomerular Filt Rate 27; Glucose Random 209 mg/dL (60-115); Potassium 4.2 mmol/L (3.3-5.1); Sodium 145 mmol/L (135-145); Total Protein 5.4 g/dL (6.5-8.0)
[2020-07-27 12:11] LABS: Glucose, Whole Blood 224 mg/dL (60-115)
--- NOTE | 2020-07-27 13:46 | PM.HEMONCPN ---
Medical Summary - Medical Summary Date of Service: 07/27/20 (She remains comfortablea ndsleeping.) Interval History Interval history: Her platelets are now 98,000 without bleeding. Review of Systems - Neurologic Denies focal weakness, Denies convulsions [facility] Medical History: Medical History (Last Reviewed 07/26/20 @ 22:32 by Petra Oakes MD) (HFpEF) heart failure with preserved ejection fraction Afib Anemia Anxiety Aortic valve stenosis Asthma Basal cell carcinoma Benign essential hypertension Chronic kidney disease, stage 4 (severe) COPD (chronic obstructive pulmonary disease) Diabetic polyneuropathy Fracture Gallstones Melanoma Mild cognitive impairment with memory loss Obesity (BMI 30-39.9) Paroxysmal atrial fibrillation Pure hypercholesterolemia Thrombocytopenia Type 2 diabetes mellitus with diabetic chronic kidney disease Family History: Family History (Last Reviewed 07/26/20 @ 22:32 by Petra Oakes MD) Father Medical history unknown Mother Acute myeloid leukemia Cancer Maternal Grandmother Myocardial infarction Brother Myocardial infarction Sister Brain aneurysm Family history: reviewed and not pertinent Surgical History: Surgical History (Last Reviewed 07/26/20 @ 22:33 by Petra Oakes MD) History of cardiac catheterization History of colonoscopy History of eye surgery 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) Stented coronary artery Social History: Social History (Last Reviewed 07/26/20 @ 22:33 by Petra Oakes MD) Living Situation History: Household Members: Spouse Household Members: Family Housing: House Alcohol History: Alcohol intake: never Alcohol History Details: Alcohol intake frequency: holiday/special occasion Tobacco History: Tobacco Type: Cigarette Packs Per Day: 0.5 Occupation Assessmet: service: No Current occupational status: retired Smoking status: Never smoker Home Medications and Allergies Current Medications: Current Medications Generic Name Dose Route Start Last Admin Trade Name Freq PRN Reason Stop Dose Admin Calcitriol 0.25 mcg 07/25/20 09:00 07/25/20 10:03 Calcitriol 0.25 Mcg Capsule PO 0.25 mcg MoWeFr [facility] Administration Docusate Sodium 100 mg 07/25/20 21:00 07/26/20 21:41 Docusate Sodium 100 Mg Capsule PO 100 mg BEDTIME [facility] Administration Ferrous Sulfate 324 mg 07/24/20 08:30 07/27/20 10:15 Ferrous Sulfate 324 Mg Tablet. PO 324 mg BIDPC [facility] Administration Hydralazine HCl 100 mg 07/24/20 09:00 07/27/20 10:14 Hydralazine Hcl 50 Mg Tablet PO 100 mg BID [facility] Administration Insulin Human Lispro 0 unit 07/24/20 07:30 07/25/20 12:35 Insulin Lispro 100 Unit/Ml 3 Ml Vial SUBCUT Not Given QIDACHS [facility] Isosorbide Mononitrate 30 mg 07/24/20 09:00 07/27/20 10:14 Isosorbide Mononitrate 30 Mg Tab.Er.24h PO 30 mg DAILY [facility] Administration Protocol Meclizine HCl 25 mg 07/24/20 09:00 07/27/20 10:15 Meclizine Hcl 12.5 Mg Tablet PO 25 mg BID [facility] Administration Memantine 10 mg 07/24/20 09:00 07/27/20 10:15 Memantine Hcl 10 Mg Tablet PO 10 mg BID [facility] Administration Non-Formulary Medication 6 mg 07/24/20 09:00 Rivastigmine Tartrate PO BID [facility] Omeprazole 20 mg 07/27/20 06:30 07/27/20 05:28 Omeprazole 20 Mg Capsule. PO 20 mg DAILY@0630 [facility] Administration Oxycodone HCl 5 mg 07/25/20 13:15 Oxycodone Hcl Immed Release 5 Mg Tablet PO Q4H PRN Pain, Moderate (Pain Scale 4-6 Pregabalin 50 mg 07/24/20 09:00 07/27/20 10:14 Pregabalin 50 Mg Capsule PO 50 mg TID [facility] Administration Senna 17.2 mg 07/25/20 21:00 07/26/20 21:41 Sennosides 8.6 Mg Tablet PO 17.2 mg BEDTIME [facility] Administration Sertraline HCl 100 mg 07/24/20 09:00 07/27/20 10:14 Sertraline Hcl 100 Mg Tablet PO 100 mg DAILY [facility] Administration Sodium Chloride 3 ml 07/24/20 08:00 07/27/20 10:15 0.9 % Sodium Chloride Flush 3 Ml Syringe IVFLUSH 3 ml QSHIFT [facility] Administration Tiotropium Mascot 1 puff 07/24/20 12:31 07/27/20 07:26 Tiotropium Mascot 18 Mcg Cap.W.Dev INHALE 1 puff RDAILY [facility] Administration Vitamin D 25 mcg 07/24/20 09:00 07/27/20 10:14 Cholecalciferol (Vitamin D3) 25 Mcg Tablet PO 25 mcg DAILY [facility] Administration Home Medications Medication Instructions Recorded Confirmed Type acetaminophen 650 mg PO Q4H PRN 03/05/20 07/23/20 History calcitriol 0.25 mcg PO 3XW 03/05/20 07/23/20 History cholecalciferol (vitamin D3) 2,000 unit PO DAILY 03/05/20 07/23/20 History memantine [Namenda XR] 21 mg PO DAILY 03/05/20 07/23/20 History nitroglycerin [Nitrostat] 0.4 mg SUBLINGUAL Q5M PRN 03/05/20 07/23/20 History rivastigmine tartrate 6 mg PO BID 03/05/20 07/23/20 History sennosides [senna] 8.6 mg PO BEDTIME 03/05/20 07/23/20 History sertraline 100 mg PO DAILY 03/05/20 07/23/20 History albuterol sulfate 90 mcg/actuation 2 puff INHALATION Q6H PRN g 04/06/20 07/23/20 History aerosol inhaler apixaban 2.5 mg tablet 2.5 mg PO BID 04/23/20 07/23/20 History amlodipine 5 mg tablet 5 mg PO DAILY 05/09/20 07/23/20 History meclizine 25 mg PO BID 05/19/20 07/23/20 History umeclidinium 62.5 mcg/actuation 1 inh INHALATION BEDTIME 06/10/20 07/23/20 History blister powder for inhalation ferrous sulfate 325 mg (65 mg 325 mg PO BID tab 07/23/20 07/23/20 History iron) tablet Allergies Allergy/AdvReac Type Severity Reaction Status Date / Time Penicillins [PENICILLINS] Allergy Severe HIVES/SWELL Verified 07/23/20 13:39 ING Exam Vital signs: Vital Signs Temp 97.9 F 07/27/20 11:55 Pulse 70 07/27/20 11:55 Resp 17 07/27/20 11:55 BP 112/52 L 07/27/20 11:55 Pulse Ox 97 07/27/20 11:55 Intake & Output 07/26/20 07/27/20 07/27/20 18:59 06:59 18:59 Intake Total 100 / 220 120 / 220 400 / 400 Output Total 200 / 200 Balance 100 / 20 -80 / 20 400 / 400 Urine Output (Average ml/kg/hr) 0.23 0.23 Intake: Intake, Oral Amount 120 / 120 400 / 400 Intake, IV Amount 100 / 100 metroNIDAZOLE/NS 500 mg In 100 100 / 100 ml @ 100 mls/hr IV Q8H [facility] Rx#: [id number] Output: Output, Urine Amount 200 / 200 Other: Breakfast % Eaten 25% Lunch % Eaten 50% Number of Bowel Movements 1 Last Bowel Movement 07/26/20 Stool Incontinent Stool Amount Large Stool Color Black (Tarry) Stool Consistency Formed Weight 72.575 kg Body Mass Index 32.3 - Constitutional Present: no acute distress, mild distress - Routine HEENT Exam Head: Present: atraumatic - Routine Respiratory Exam Present: CTAB - Routine Cardiovascular Exam Cardiovascular: Present: S1, S2 - Routine Abdominal Exam Present: diminished bowel sounds, soft - Routine Exam Patient deferred: external exam - Routine Neurological Exam Present: oriented X3 Data - Labs CBC & Chem 7: 07/27/20 11:07 07/27/20 11:07 Labs: 07/23/20 18:49 Occult Blood, Stool x1 [OBSX1] Stat 07/23/20 18:57 ECG 12 lead EKG Stat EKG Documentation DIRECTED 07/23/20 19:15 XR femur RT 2V Stat 07/23/20 19:23 Antibody Identification Stat Antigen Identification Stat Red Blood Cells Stat Type and Screen Stat Troponin-I High Sensitivity Stat 07/23/20 19:26 COVID-19 ID NOW (Camacho) Stat 07/23/20 22:38 Troponin-I High Sensitivity Stat 07/23/20 23:26 Pantoprazole Sodium [Protonix] 40 mg IVPUSH ONCE ONE 07/24/20 CT cervical spine wo con Stat CT head/brain wo con Stat 07/24/20 00:32 Acetaminophen Supp [Tylenol Supp] 650 mg SD Q6H PRN 07/24/20 01:49 NPO Diet 07/24/20 04:07 Transfer Order Routine 07/24/20 06:30 Omeprazole [PriLOSEC] 20 mg PO DAILY@0630 Pantoprazole Sodium [Protonix] 40 mg IVPUSH DAILY@0630 07/24/20 08:00 Tiotropium Mascot [Spiriva] 1 puff INHALE RDAILY 07/24/20 08:35 Basic Metabolic Panel DAILY Complete Blood Count Auto Diff DAILY@0600 Creatine Kinase Total Routine Ferritin Routine IRON PROFILE Routine Liver Panel Routine SLIDE REVIEW Routine Vitamin B12 and Folate Routine 07/24/20 09:00 Amiodarone HCL [Cordarone] 200 mg PO DAILY 07/24/20 09:21 Add Laboratory Test Urgent 07/24/20 09:56 Add Laboratory Test Urgent 07/24/20 17:06 Glucose, Whole Blood Routine 07/24/20 18:03 Clear Liquid Diet 07/24/20 19:58 Complete Blood Count no Diff Routine 07/24/20 20:26 Glucose, Whole Blood Routine 07/25/20 US abdomen complete Routine 07/25/20 05:30 Complete Blood Count Auto Diff Routine Liver Panel Routine Prothrombin Time INR Routine SLIDE REVIEW Routine Thyroid Stimulating Hormone Routine 07/25/20 07:30 CA echo transthoracic complete Routine 07/25/20 07:44 Glucose, Whole Blood Routine 07/25/20 09:00 CT femur RT wo con Routine 07/25/20 09:21 Hepatitis A,B,C Profile Urgent 07/25/20 10:38 ceFAZolin Sodium/Dextrose,Iso [Ancef] 2 gm in 50 ml IV PREOP 07/25/20 11:31 Glucose, Whole Blood Routine 07/25/20 15:27 Glucose, Whole Blood Routine 07/25/20 16:45 levoFLOXacin/D5W [Levaquin] 500 mg in 100 ml IV ONCE 07/25/20 20:30 Glucose, Whole Blood Routine 07/26/20 04:41 Basic Metabolic Panel DAILY@0600 Complete Blood Count no Diff DAILY@0600 07/26/20 08:16 Glucose, Whole Blood Routine 07/26/20 11:31 Glucose, Whole Blood Routine Laboratory Last Values WBC 7.9 X10*3/uL (4.8-10.8) 07/26/20 04:41 RBC 3.58 X10*6/uL (4.20-5.50) L 07/26/20 04:41 Hgb 10.5 g/dl (12.0-16.0) L 07/26/20 04:41 Hct 33.5 % (37-47) L 07/26/20 04:41 MCV 93.6 fL (80-98) 07/26/20 04:41 MCH 29.3 pg (27.0-33.0) 07/26/20 04:41 MCHC 31.3 g/dl (31.0-35.0) 07/26/20 04:41 RDW 15.8 % (11.0-16.0) 07/26/20 04:41 Plt Count 98 X10*3/uL (160-400) L D 07/26/20 04:41 MPV 12.5 fL (9.4-12.3) H 07/26/20 04:41 Immature Gran % (Auto) 1.0 % (0.0-0.4) H 07/25/20 05:30 Neut % (Auto) 78.7 % (45-73) H 07/25/20 05:30 Lymph % (Auto) 6.9 % (20-40) L 07/25/20 05:30 [place] % (Auto) 13.2 % (2-11) H 07/25/20 05:30 Eos % (Auto) 0.0 % (0-4) 07/25/20 05:30 Baso % (Auto) 0.2 % (0-2) 07/25/20 05:30 Lymph # (Auto) 0.6 X10*3/uL (1.2-4.9) L 07/25/20 05:30 [place] # (Auto) 1.1 X10*3/uL (0.1-1.2) 07/25/20 05:30 Eos # (Auto) 0.0 X10*3/uL (0.0-0.4) 07/25/20 05:30 Baso # (Auto) 0.0 X10*3/uL (0.0-0.2) 07/25/20 05:30 Abs Immat Gran (auto) 0.08 X10*3/uL (0.00-0.03) H 07/25/20 05:30 Absolute Neuts (auto) 6.4 X10*3/uL (2.0-8.3) 07/25/20 05:30 Absolute Nucleated RBC 0.000 X10*3/uL (0.0-0.012) 07/26/20 04:41 Nucleated RBC % (auto) 0.0 /100WBC (0.0-0.2) 07/26/20 04:41 Smear Tech's Comments VERIFIED 07/25/20 05:30 PT 16.6 SEC (10.8-13.0) H 07/25/20 05:30 INR 1.4 (0.9-1.1) H 07/25/20 05:30 Sodium 145 mmol/L (135-145) 07/26/20 04:41 Potassium 4.1 mmol/L (3.3-5.1) 07/26/20 04:41 Chloride 110 mmol/L (96-108) H 07/26/20 04:41 Carbon Dioxide 25 mmol/L (22-29) 07/26/20 04:41 Anion Gap 14 (12-20) 07/26/20 04:41 BUN 33 mg/dL (9-16) H 07/26/20 04:41 Creatinine 1.55 mg/dL (0.5-1.4) H 07/26/20 04:41 Estim Creat Clear Calc 26.4 07/26/20 04:41 Estimated GFR 32 07/26/20 04:41 POC Glucose 89 mg/dL (60-115) 07/26/20 11:31 Random Glucose 63 mg/dL (60-115) 07/26/20 04:41 Calcium 8.4 mg/dL (8.4-10.2) 07/26/20 04:41 Iron 169 mcg/dL (30-160) H 07/24/20 08:35 TIBC 290 mcg/dL (228-428) 07/24/20 08:35 % Saturation 58 % (15-50) H 07/24/20 08:35 Unsat Iron Binding 121 ug/dL 07/24/20 08:35 Ferritin 114 ng/mL (10-250) 07/24/20 08:35 Total Bilirubin 1.1 mg/dL (0.0-1.0) H 07/25/20 05:30 Direct Bilirubin 0.7 mg/dL (0.0-0.5) H 07/25/20 05:30 AST 349 U/L (5-31) H 07/25/20 05:30 ALT 364 U/L (0-31) H 07/25/20 05:30 Alkaline Phosphatase 83 U/L (39-117) 07/25/20 05:30 Total Creatine Kinase 46 U/L (26-140) 07/24/20 08:35 Troponin I High Sens 1202.0 ng/L (<3.5-17.0) H 07/24/20 01:13 Total Protein 5.3 g/dL (6.5-8.0) L 07/25/20 05:30 Albumin 2.9 g/dL (3.5-5.0) L 07/25/20 05:30 Vitamin B12 1113 pg/mL (200-900) H 07/24/20 08:35 Folate > 20.0 ng/mL (> or = 4.0) 07/24/20 08:35 TSH 1.07 uIU/mL (0.32-4.0) 07/25/20 05:30 Stool Occult Blood POS (NEG) 07/23/20 18:49 COVID-19 (TAISHA) Negative (Negative) 07/23/20 19:26 COVID-19 Clin Com See Note 07/23/20 19:26 Hepatitis A IgM Ab Nonreactive (Nonreactive) 07/25/20 09:21 Hep Bs Antigen Negative (Negative) 07/25/20 09:21 Hep Bs Antibody NONREACTIVE (Nonreactive) 07/25/20 09:21 Hep B Core Total Ab Nonreactive (Nonreactive) 07/25/20 09:21 Hepatitis C Ab (EIA) Nonreactive (Nonreactive) 07/25/20 09:21 Blood Type A Positive 07/23/20 19:23 Antibody Screen POSITIVE 07/23/20 19:23 Antibody Identification Inconclusive Anti-K Anti-c 07/23/20 19:23 Antibody Identification Inconclusive Anti-K Anti-c 07/23/20 19:23 Antibody Identification Inconclusive Anti-K Anti-c 07/23/20 19:23 Antigen Identification E Antigen - NEGATIVE K Antigen - NEGATIVE c Antigen - NEGATIVE 07/23/20 19:23 Antigen Identification E Antigen - NEGATIVE K Antigen - NEGATIVE c Antigen - NEGATIVE 07/23/20 19:23 Antigen Identification E Antigen - NEGATIVE K Antigen - NEGATIVE c Antigen - NEGATIVE 07/23/20 19:23 Crossmatch See Detail 07/23/20 19:23 Crossmatch (AHG) See Detail 07/23/20 19:23 - Imaging Radiologist's impression: ITS Impressions Femur X-Ray 07/23/20 19:15 IMPRESSION: 1. No radiographic evidence of acute fracture or subluxation involving the right femur. 2. Marked progressive tricompartmental degenerative changes of the right knee. Head CT 07/24/20 01:57 IMPRESSION: 1. No acute intracranial finding. 2. No acute fracture or malalignment of the cervical spine. Mild degenerative change. Cervical Spine CT 07/24/20 01:58 IMPRESSION: 1. No acute intracranial finding. 2. No acute fracture or malalignment of the cervical spine. Mild degenerative change. Abdomen Ultrasound 07/25/20 08:30 IMPRESSION: Upper normal-size gallbladder with gallstones. Gallbladder wall thickening and edema. The time study technologist reports the patient is tender over the gallbladder. Ultrasound appearance is concerning for acute cholecystitis. Slightly echogenic liver. Left renal stones. Limited visualization of the pancreas. Femur CT 07/25/20 09:00 IMPRESSION: High attenuation soft tissue mass in the subcutaneous fat of the right distal medial thigh just above the knee suggestive of a hematoma. There is diffuse stranding of the subcutaneous fat and some overlying skin thickening. Severe arthritis at the knee joint and mild arthritis at the right hip joint. 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 Progress Note: A/P (1) Hematoma Start date: 07/26/20 (Her platelets are 98,000. No change in therapy is needed.) Status: Acute - Time Spent With Patient Total time spent is greater than 50% in coordination of care (as documented) at patient's floor/unit and/or counseling patient: 15 - 24 minutes
--- NOTE | 2020-07-27 13:56 | HO.PM.IMPN ---
Subjective Subjective Date of Service: 07/27/20 Interval History: seen and examined this AM reports didnt sleep well last night seen later again, tolerating bfast ROS General - no fevers or chills Cardiovascular - no chest pain Respiratory - no shortness of breath or cough Abdominal- no abdominal pain, nausea, vomiting, diarrhea Physical Exam Vital Signs: Vital Signs: Last Vital Signs Temp 97.9 F 07/27/20 11:55 Pulse 70 07/27/20 11:55 Resp 17 07/27/20 11:55 BP 112/52 L 07/27/20 11:55 Pulse Ox 97 07/27/20 11:55 Body Mass Index 32.3 Const: Other: General - no acute distress, appears comfortable Cardiovascular - regular rate and rhythm, S1-S2 Lungs - normal respiratory effort, clear to auscultation bilaterally, no wheezing Abdomen - soft, nontender, no rebound or guarding Extremities - R medial thigh with significant induratin and TTP; ecchymosis - unchanged last 24 hours Neuro - awake and alert, no focal deficits Objective Data Current Medications Generic Name Dose Route Start Last Admin Trade Name Freq PRN Reason Stop Dose Admin Calcitriol 0.25 mcg 07/25/20 09:00 07/25/20 10:03 Calcitriol 0.25 Mcg Capsule PO 0.25 mcg MoWeFr SATINDER Administration Docusate Sodium 100 mg 07/25/20 21:00 07/26/20 21:41 Docusate Sodium 100 Mg Capsule PO 100 mg BEDTIME SATINDER Administration Ferrous Sulfate 324 mg 07/24/20 08:30 07/27/20 10:15 Ferrous Sulfate 324 Mg Tablet. PO 324 mg BIDPC SATINDER Administration Hydralazine HCl 100 mg 07/24/20 09:00 07/27/20 10:14 Hydralazine Hcl 50 Mg Tablet PO 100 mg BID SATINDER Administration Insulin Human Lispro 0 unit 07/24/20 07:30 07/25/20 12:35 Insulin Lispro 100 Unit/Ml 3 Ml Vial SUBCUT Not Given QIDACHS SATINDER Isosorbide Mononitrate 30 mg 07/24/20 09:00 07/27/20 10:14 Isosorbide Mononitrate 30 Mg Tab.Er.24h PO 30 mg DAILY SATINDER Administration Protocol Meclizine HCl 25 mg 07/24/20 09:00 07/27/20 10:15 Meclizine Hcl 12.5 Mg Tablet PO 25 mg BID SATINDER Administration Memantine 10 mg 07/24/20 09:00 07/27/20 10:15 Memantine Hcl 10 Mg Tablet PO 10 mg BID SATINDER Administration Non-Formulary Medication 6 mg 07/24/20 09:00 Rivastigmine Tartrate PO BID [facility] Omeprazole 20 mg 07/27/20 06:30 07/27/20 05:28 Omeprazole 20 Mg Capsule.Dr PO 20 mg DAILY@0630 SATINDER Administration Oxycodone HCl 5 mg 07/25/20 13:15 Oxycodone Hcl Immed Release 5 Mg Tablet PO Q4H PRN Pain, Moderate (Pain Scale 4-6 Pregabalin 50 mg 07/24/20 09:00 07/27/20 10:14 Pregabalin 50 Mg Capsule PO 50 mg TID [facility] Administration Senna 17.2 mg 07/25/20 21:00 07/26/20 21:41 Sennosides 8.6 Mg Tablet PO 17.2 mg BEDTIME SATINDER Administration Sertraline HCl 100 mg 07/24/20 09:00 07/27/20 10:14 Sertraline Hcl 100 Mg Tablet PO 100 mg DAILY SATINDER Administration Sodium Chloride 3 ml 07/24/20 08:00 07/27/20 10:15 0.9 % Sodium Chloride Flush 3 Ml Syringe IVFLUSH 3 ml QSHIFT [facility] Administration Tiotropium Union 1 puff 07/24/20 12:31 07/27/20 07:26 Tiotropium Union 18 Mcg Cap.W.Dev INHALE 1 puff RDAILY SATINDER Administration Vitamin D 25 mcg 07/24/20 09:00 07/27/20 10:14 Cholecalciferol (Vitamin D3) 25 Mcg Tablet PO 25 mcg DAILY SATINDER Administration Labs CBC & Chem 7: 07/27/20 11:07 07/27/20 11:07 Assessment and Plan (1) Hematoma: Status: Acute Assessment and Plan: This is a 79 yo F with a PMH of HTN, HLD, DM, A. Fib on Eliquis who presented after a mechanical fall and was diagnosed with acute blood loss anemia secondry to R medial thigh hematoma. 1. Acute Blood Loss Anemia, secondary to R thigh hematoma s/p 2 units PRBCs; h/h stable plan for operative evacuation of hematoma, but on hold due to recent Eliquis use. Plan for OR Tuesday if needed. Gen Surg on Board 2. Transaminitis down trending clinically no RUQ pain to suggest acute earle -- antibiotics on hold for now. ID in put appreciated. Gen Surg/GI on board hold statin 3. Thromcytopnia chornic monitor transfuse if bleeding 4. LINDA on CKD stage 3/4 SCr relatively stable 5. DM sliding scale poc qidac 6. PAF currently in sinus continue baseline meds except eliquis 7. Positive occult blood GI input appreciated outpatient f/u in GI clinic Full Code DVT pptx, mechanical (if she can tolerate); cannot to pharmacologic due to acute bleed d/w the daughter -- updates given.
[2020-07-27] MEDS: Insulin Lispro 100 UNIT/ML 3 ML VIAL SUBCUT (16:50)
[2020-07-27 20:14] LABS: Glucose, Whole Blood 291 mg/dL (60-115)
[2020-07-27 20:27] LABS: Glucose, Whole Blood 152 mg/dL (60-115)
[2020-07-28] VITALS (17 sets, daily range): BP systolic 119–172; BP diastolic 30–74; PULSE 60–87; RESP 16–20; TEMP 36–36.9; O2SAT 93–99
[2020-07-28 06:07] LABS: Mean Corpuscular Volume 98.1 fL (80-98); PLT CLUMP 1
[2020-07-28 06:09] LABS: Hematocrit 31.5 % (37-47); Hemoglobin 9.5 g/dl (12.0-16.0); Mean Corpuscular HGB Conc 30.2 g/dl (31.0-35.0); Mean Corpuscular Hemoglobin 29.6 pg (27.0-33.0); Mean Platelet Volume 11.6 fL (9.4-12.3); Platelet Count 108 X10*3/uL (160-400); Red Blood Count 3.21 X10*6/uL (4.20-5.50); Red Cell Distribution Width 15.7 % (11.0-16.0); White Blood Count 7.2 X10*3/uL (4.8-10.8)
[2020-07-28 06:34] LABS: Alanine Aminotransferase 315 U/L (0-31); Albumin Level 2.6 g/dL (3.5-5.0); Alkaline Phosphatase 81 U/L (39-117); Anion Gap 10 (12-20); Aspartate Amino Transferase 196 U/L (5-31); Bilirubin Direct 0.4 mg/dL (0.0-0.5); Bilirubin Total 0.7 mg/dL (0.0-1.0); Blood Urea Nitrogen 47 mg/dL (9-16); Calcium 8.2 mg/dL (8.4-10.2); Carbon Dioxide 29 mmol/L (22-29); Chloride 114 mmol/L (96-108); Creatinine Clr Calc Pharmacy 20.5; Estimated Glomerular Filt Rate 24; Glucose Random 119 mg/dL (60-115); Sodium 149 mmol/L (135-145); Total Protein 5.1 g/dL (6.5-8.0)
[2020-07-28 07:30] LABS: Glucose, Whole Blood 135 mg/dL (60-115)
--- NOTE | 2020-07-28 07:47 | P.EN_ITS ---
Event Note Date of Service: 07/28/20 Event Note: no new events over the weekend pt c/o pain on hematoma site [employer], with some skin changes from pressure will proceed with evacuation of hematoma right thigh in view of persistent discomfort and skin changes discussed again with pt and daughter Lakshmi case reviewed with Hospitalist
[2020-07-28] MEDS: 0.9 % Sodium Chloride 500 ML 20 ML IVCONT (07:50)
--- NOTE | 2020-07-28 07:58 | HO.ANESPROP2 ---
COUNT INCLUDES THE [facility] Active Problems Active Problems: All Active Problems (Updated 07/26/20 @ 22:37 by Petra Oakes MD) Gallstones (Acute) NSTEMI (non-ST elevated myocardial infarction) (Acute) Elevated troponin (Acute) Thrombocytopenia (Chronic) Hematoma of right thigh (Acute) Acute renal failure (Acute) Acute GI bleeding (Acute) Fatigue (Acute) Edema of right lower extremity (Acute) Hematoma (Acute) Asthma (Acute) Cellulitis (Acute) UTI (urinary tract infection) (Acute) Bicytopenia (Chronic) Diabetes mellitus (Acute) CAD (coronary artery disease) (Acute) Primary osteoarthritis of right knee (Acute) Thrombocytopenia (Acute) Aortic valve stenosis (Acute) Diabetic polyneuropathy (Acute) (HFpEF) heart failure with preserved ejection fraction (Acute) S/P TAVR (transcatheter aortic valve replacement) (Acute) Paroxysmal atrial fibrillation (Acute) Chronic kidney disease, stage 4 (severe) (Acute) Benign essential hypertension (Acute) Obesity (BMI 30-39.9) (Acute) Anxiety (Acute) Mild cognitive impairment with memory loss (Acute) Anemia (Acute) COPD (chronic obstructive pulmonary disease) (Acute) Pure hypercholesterolemia (Acute) Type 2 diabetes mellitus with diabetic chronic kidney disease (Acute) Past Medical History Medical History (HFpEF) heart failure with preserved ejection fraction Afib Anemia Anxiety Aortic valve stenosis Asthma Basal cell carcinoma Benign essential hypertension Chronic kidney disease, stage 4 (severe) COPD (chronic obstructive pulmonary disease) Diabetic polyneuropathy Fracture Gallstones Melanoma Mild cognitive impairment with memory loss Obesity (BMI 30-39.9) Paroxysmal atrial fibrillation Pure hypercholesterolemia Thrombocytopenia Type 2 diabetes mellitus with diabetic chronic kidney disease Family History Family History Father Medical history unknown Mother Acute myeloid leukemia Cancer Maternal Grandmother Myocardial infarction Brother Myocardial infarction Sister Brain aneurysm Surgical History Surgical History History of cardiac catheterization History of colonoscopy History of eye surgery 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) Stented coronary artery Social History Social History Household Members: Spouse and Family Housing: House Alcohol intake: never Smoking Status: Former smoker Tobacco Type: Cigarette Packs Per Day: 0.5 Years Smoked: 19 service: No Current occupational status: retired Meds Allergies Allergy/AdvReac Type Severity Reaction Status Date / Time Penicillins [PENICILLINS] Allergy Severe HIVES/SWELL Verified 07/23/20 13:39 ING Active Medications: Current Medications Generic Name Dose Route Start Last Admin Trade Name Willard PRN Reason Stop Dose Admin Calcitriol 0.25 mcg 07/25/20 09:00 07/25/20 10:03 Calcitriol 0.25 Mcg Capsule PO 0.25 mcg MoWeFr SATINDER Administration Docusate Sodium 100 mg 07/25/20 21:00 07/27/20 21:19 Docusate Sodium 100 Mg Capsule PO Not Given BEDTIME SATINDER Ferrous Sulfate 324 mg 07/24/20 08:30 07/27/20 17:22 Ferrous Sulfate 324 Mg Tablet. PO 324 mg BIDPC SATINDER Administration Hydralazine HCl 100 mg 07/24/20 09:00 07/27/20 21:19 Hydralazine Hcl 50 Mg Tablet PO Not Given BID SATINDER Dextrose 1,000 mls @ 100 mls/hr 07/28/20 07:45 D5w IVCONT 07/28/20 17:44 .Q10H SATINDER Cefazolin Sodium/Dextrose 2 gm in 50 mls @ 100 mls/hr 07/28/20 07:45 Ancef IV 07/28/20 08:14 PREOP ONE Sodium Chloride 500 mls @ 20 mls/hr 07/28/20 08:00 Ns IVCONT .Q24H SATINDER Insulin Human Lispro 0 unit 07/27/20 16:45 07/27/20 21:21 Insulin Lispro 100 Unit/Ml 3 Ml Vial SUBCUT Not Given [facility] Protocol Isosorbide Mononitrate 30 mg 07/24/20 09:00 07/27/20 10:14 Isosorbide Mononitrate 30 Mg Tab.Er.24h PO 30 mg DAILY SATINDER Administration Protocol Meclizine HCl 25 mg 07/24/20 09:00 07/27/20 21:22 Meclizine Hcl 12.5 Mg Tablet PO Not Given BID SATINDER Memantine 10 mg 07/24/20 09:00 07/27/20 21:22 Memantine Hcl 10 Mg Tablet PO Not Given [facility] Non-Formulary Medication 6 mg 07/24/20 09:00 Rivastigmine Tartrate PO BID [facility] Omeprazole 20 mg 07/27/20 06:30 07/28/20 04:05 Omeprazole 20 Mg Capsule.Dr PO Not Given DAILY@0630 [facility] Oxycodone HCl 5 mg 07/25/20 13:15 Oxycodone Hcl Immed Release 5 Mg Tablet PO Q4H PRN Pain, Moderate (Pain Scale 4-6 Pregabalin 50 mg 07/24/20 09:00 07/27/20 21:23 Pregabalin 50 Mg Capsule PO Not Given TID [facility] Senna 17.2 mg 07/25/20 21:00 07/27/20 21:23 Sennosides 8.6 Mg Tablet PO Not Given BEDTIME [facility] Sertraline HCl 100 mg 07/24/20 09:00 07/27/20 10:14 Sertraline Hcl 100 Mg Tablet PO 100 mg DAILY [facility] Administration Sodium Chloride 3 ml 07/24/20 08:00 07/27/20 23:43 0.9 % Sodium Chloride Flush 3 Ml Syringe IVFLUSH 3 ml QSHIFT [facility] Administration Tiotropium Amagon 1 puff 07/24/20 12:31 07/28/20 07:30 Tiotropium Amagon 18 Mcg Cap.W.Dev INHALE Not Given RDAILY [facility] Vitamin D 25 mcg 07/24/20 09:00 07/27/20 10:14 Cholecalciferol (Vitamin D3) 25 Mcg Tablet PO 25 mcg DAILY [facility] Administration Home Medications Medication Instructions Recorded Confirmed Last Taken Type acetaminophen 650 mg PO Q4H PRN 03/05/20 07/23/20 Unknown History calcitriol 0.25 mcg PO 3XW 03/05/20 07/23/20 Unknown History cholecalciferol (vitamin D3) 2,000 unit PO DAILY 03/05/20 07/23/20 03/04/20 History memantine [Namenda XR] 21 mg PO DAILY 03/05/20 07/23/20 03/04/20 History nitroglycerin [Nitrostat] 0.4 mg SUBLINGUAL Q5M PRN 03/05/20 07/23/20 Unknown History rivastigmine tartrate 6 mg PO BID 03/05/20 07/23/20 03/04/20 History sennosides [senna] 8.6 mg PO BEDTIME 03/05/20 07/23/20 03/03/20 History sertraline 100 mg PO DAILY 03/05/20 07/23/20 03/04/20 History albuterol sulfate 90 mcg/actuation 2 puff INHALATION Q6H PRN g 04/06/20 07/23/20 Unknown History aerosol inhaler apixaban 2.5 mg tablet 2.5 mg PO BID 04/23/20 07/23/20 Unknown History amlodipine 5 mg tablet 5 mg PO DAILY 05/09/20 07/23/20 Unknown History meclizine 25 mg PO BID 05/19/20 07/23/20 Unknown History umeclidinium 62.5 mcg/actuation 1 inh INHALATION BEDTIME 06/10/20 07/23/20 Unknown History blister powder for inhalation ferrous sulfate 325 mg (65 mg 325 mg PO BID tab 07/23/20 07/23/20 Unknown History iron) tablet Exam Exam Date and Time: July 28, 2020 0758 Height,Weight and Vital Signs: Height 4 ft 11 in Weight 72.575 kg Last Vital Signs Temp 98.5 F 07/28/20 07:29 Pulse 60 07/28/20 07:29 Resp 18 07/28/20 07:29 BP 154/65 H 07/28/20 07:29 Pulse Ox 99 07/28/20 07:29 Pertinent Lab Results Pertinent Lab Results: Laboratory Tests 07/23/20 07/23/20 07/23/20 18:49 19:23 19:23 WBC RBC Hgb Hct MCV MCH MCHC RDW Plt Count MPV Immature Gran % (Auto) Neut % (Auto) Lymph % (Auto) [place] % (Auto) Eos % (Auto) Baso % (Auto) Lymph # (Auto) [place] # (Auto) Eos # (Auto) Baso # (Auto) Abs Immat Gran (auto) Absolute Neuts (auto) Absolute Nucleated RBC Nucleated RBC % (auto) Smear Tech's Comments PT INR Sodium Potassium Chloride Carbon Dioxide Anion Gap BUN Creatinine Estim Creat Clear Calc Estimated GFR POC Glucose Random Glucose Calcium Iron TIBC % Saturation Unsat Iron Binding Ferritin Total Bilirubin Direct Bilirubin AST ALT Alkaline Phosphatase Total Creatine Kinase Troponin I High Sens 1388.5 H Total Protein Albumin Vitamin B12 Folate TSH Stool Occult Blood POS COVID-19 ([facility]) COVID-19 Clin Com Hepatitis A IgM Ab Hep Bs Antigen Hep Bs Antibody Hep B Core Total Ab Hepatitis C Ab (EIA) Blood Type A Positive Antibody Screen POSITIVE Antibody Identification Anti-c Antigen Identification c Antigen - NEGATIVE Crossmatch See Detail Crossmatch ([facility]) See Detail 07/23/20 07/24/20 07/24/20 19:26 01:13 08:35 WBC 7.0 RBC 3.41 L D Hgb 10.1 L D Hct 32.2 L D MCV 94.4 MCH 29.6 MCHC 31.4 RDW 15.4 Plt Count 45 L D MPV Not Reportable Immature Gran % (Auto) 1.1 H Neut % (Auto) 73.2 H Lymph % (Auto) 9.5 L [place] % (Auto) 15.5 H Eos % (Auto) 0.4 Baso % (Auto) 0.3 Lymph # (Auto) 0.7 L [place] # (Auto) 1.1 Eos # (Auto) 0.0 Baso # (Auto) 0.0 Abs Immat Gran (auto) 0.08 H Absolute Neuts (auto) 5.1 Absolute Nucleated RBC 0.000 Nucleated RBC % (auto) 0.0 Smear Tech's Comments VERIFIED PT INR Sodium Potassium Chloride Carbon Dioxide Anion Gap BUN Creatinine Estim Creat Clear Calc Estimated GFR POC Glucose Random Glucose Calcium Iron TIBC % Saturation Unsat Iron Binding Ferritin Total Bilirubin Direct Bilirubin AST ALT Alkaline Phosphatase Total Creatine Kinase Troponin I High Sens 1202.0 H Total Protein Albumin Vitamin B12 Folate TSH Stool Occult Blood COVID-19 ([facility]ISHA) Negative COVID-19 Clin Com See Note Hepatitis A IgM Ab Hep Bs Antigen Hep Bs Antibody Hep B Core Total Ab Hepatitis C Ab (EIA) Blood Type Antibody Screen Antibody Identification Antigen Identification Crossmatch Crossmatch ([facility]) 07/24/20 07/24/20 07/24/20 08:35 08:35 17:06 WBC RBC Hgb Hct MCV MCH MCHC RDW Plt Count MPV Immature Gran % (Auto) Neut % (Auto) Lymph % (Auto) [place] % (Auto) Eos % (Auto) Baso % (Auto) Lymph # (Auto) [place] # (Auto) Eos # (Auto) Baso # (Auto) Abs Immat Gran (auto) Absolute Neuts (auto) Absolute Nucleated RBC Nucleated RBC % (auto) Smear Tech's Comments PT INR Sodium 141 Potassium 4.1 Chloride 107 Carbon Dioxide 28 Anion Gap 10 L BUN 30 H Creatinine 1.85 H Estim Creat Clear Calc 22.0 Estimated GFR 26 POC Glucose 96 Random Glucose 84 D Calcium 8.2 L Iron 169 H TIBC 290 % Saturation 58 H Unsat Iron Binding 121 Ferritin 114 Total Bilirubin 1.6 H Direct Bilirubin 0.8 H AST 293 H ALT 325 H Alkaline Phosphatase 77 Total Creatine Kinase 46 Troponin I High Sens Total Protein 5.4 L Albumin 3.1 L Vitamin B12 1113 H Folate > 20.0 TSH Stool Occult Blood COVID-19 ([facility]) COVID-19 Clin Com Hepatitis A IgM Ab Hep Bs Antigen Hep Bs Antibody Hep B Core Total Ab Hepatitis C Ab (EIA) Blood Type Antibody Screen Antibody Identification Antigen Identification Crossmatch Crossmatch ([facility]) 07/24/20 07/24/20 07/25/20 19:58 20:26 05:30 WBC 7.0 RBC 3.40 L Hgb 10.0 L Hct 31.9 L MCV 93.8 MCH 29.4 MCHC 31.3 RDW 15.6 Plt Count 51 L MPV 12.8 H Immature Gran % (Auto) Neut % (Auto) Lymph % (Auto) [place] % (Auto) Eos % (Auto) Baso % (Auto) Lymph # (Auto) [place] # (Auto) Eos # (Auto) Baso # (Auto) Abs Immat Gran (auto) Absolute Neuts (auto) Absolute Nucleated RBC 0.000 Nucleated RBC % (auto) 0.0 Smear Tech's Comments PT 16.6 H INR 1.4 H Sodium Potassium Chloride Carbon Dioxide Anion Gap BUN Creatinine Estim Creat Clear Calc Estimated GFR POC Glucose 108 Random Glucose Calcium Iron TIBC % Saturation Unsat Iron Binding Ferritin Total Bilirubin Direct Bilirubin AST ALT Alkaline Phosphatase Total Creatine Kinase Troponin I High Sens Total Protein Albumin Vitamin B12 Folate TSH Stool Occult Blood COVID-19 ([facility]ISHA) COVID-19 Clin Com Hepatitis A IgM Ab Hep Bs Antigen Hep Bs Antibody Hep B Core Total Ab Hepatitis C Ab (EIA) Blood Type Antibody Screen Antibody Identification Antigen Identification Crossmatch Crossmatch ([facility]) 07/25/20 07/25/20 07/25/20 05:30 05:30 05:30 WBC 8.1 RBC 3.41 L Hgb 10.1 L Hct 31.2 L MCV 91.5 MCH 29.6 MCHC 32.4 RDW 15.7 Plt Count 63 L MPV Not Reportable Immature Gran % (Auto) 1.0 H Neut % (Auto) 78.7 H Lymph % (Auto) 6.9 L [place] % (Auto) 13.2 H Eos % (Auto) 0.0 Baso % (Auto) 0.2 Lymph # (Auto) 0.6 L [place] # (Auto) 1.1 Eos # (Auto) 0.0 Baso # (Auto) 0.0 Abs Immat Gran (auto) 0.08 H Absolute Neuts (auto) 6.4 Absolute Nucleated RBC 0.000 Nucleated RBC % (auto) 0.0 Smear Tech's Comments VERIFIED PT INR Sodium Potassium Chloride Carbon Dioxide Anion Gap BUN Creatinine Estim Creat Clear Calc Estimated GFR POC Glucose Random Glucose Calcium Iron TIBC % Saturation Unsat Iron Binding Ferritin Total Bilirubin 1.1 H Direct Bilirubin 0.7 H AST 349 H ALT 364 H Alkaline Phosphatase 83 Total Creatine Kinase Troponin I High Sens Total Protein 5.3 L Albumin 2.9 L Vitamin B12 Folate TSH 1.07 Stool Occult Blood COVID-19 ([facility]IS[facility]) COVID-19 Clin Com Hepatitis A IgM Ab Hep Bs Antigen Hep Bs Antibody Hep B Core Total Ab Hepatitis C Ab (EIA) Blood Type Antibody Screen Antibody Identification Antigen Identification Crossmatch Crossmatch ([facility]) 07/25/20 07/25/20 07/25/20 07:44 09:21 11:31 WBC RBC Hgb Hct MCV MCH MCHC RDW Plt Count MPV Immature Gran % (Auto) Neut % (Auto) Lymph % (Auto) [place] % (Auto) Eos % (Auto) Baso % (Auto) Lymph # (Auto) [place] # (Auto) Eos # (Auto) Baso # (Auto) Abs Immat Gran (auto) Absolute Neuts (auto) Absolute Nucleated RBC Nucleated RBC % (auto) Smear Tech's Comments PT INR Sodium Potassium Chloride Carbon Dioxide Anion Gap BUN Creatinine Estim Creat Clear Calc Estimated GFR POC Glucose 74 80 Random Glucose Calcium Iron TIBC % Saturation Unsat Iron Binding Ferritin Total Bilirubin Direct Bilirubin AST ALT Alkaline Phosphatase Total Creatine Kinase Troponin I High Sens Total Protein Albumin Vitamin B12 Folate TSH Stool Occult Blood COVID-19 ([facility]IS[facility]) COVID-19 Clin Com Hepatitis A IgM Ab Nonreactive Hep Bs Antigen Negative Hep Bs Antibody NONREACTIVE Hep B Core Total Ab Nonreactive Hepatitis C Ab (EIA) Nonreactive Blood Type Antibody Screen Antibody Identification Antigen Identification Crossmatch Crossmatch ([facility]) 07/25/20 07/25/20 07/26/20 15:27 20:30 04:41 WBC 7.9 RBC 3.58 L Hgb 10.5 L Hct 33.5 L MCV 93.6 MCH 29.3 MCHC 31.3 RDW 15.8 Plt Count 98 L D MPV 12.5 H Immature Gran % (Auto) Neut % (Auto) Lymph % (Auto) [place] % (Auto) Eos % (Auto) Baso % (Auto) Lymph # (Auto) [place] # (Auto) Eos # (Auto) Baso # (Auto) Abs Immat Gran (auto) Absolute Neuts (auto) Absolute Nucleated RBC 0.000 Nucleated RBC % (auto) 0.0 Smear Tech's Comments PT INR Sodium Potassium Chloride Carbon Dioxide Anion Gap BUN Creatinine Estim Creat Clear Calc Estimated GFR POC Glucose 85 90 Random Glucose Calcium Iron TIBC % Saturation Unsat Iron Binding Ferritin Total Bilirubin Direct Bilirubin AST ALT Alkaline Phosphatase Total Creatine Kinase Troponin I High Sens Total Protein Albumin Vitamin B12 Folate TSH Stool Occult Blood COVID-19 ([facility]IS[facility]) COVID-19 Clin Com Hepatitis A IgM Ab Hep Bs Antigen Hep Bs Antibody Hep B Core Total Ab Hepatitis C Ab (EIA) Blood Type Antibody Screen Antibody Identification Antigen Identification Crossmatch Crossmatch ([facility]) 07/26/20 07/26/20 07/26/20 04:41 08:16 11:31 WBC RBC Hgb Hct MCV MCH MCHC RDW Plt Count MPV Immature Gran % (Auto) Neut % (Auto) Lymph % (Auto) [place] % (Auto) Eos % (Auto) Baso % (Auto) Lymph # (Auto) [place] # (Auto) Eos # (Auto) Baso # (Auto) Abs Immat Gran (auto) Absolute Neuts (auto) Absolute Nucleated RBC Nucleated RBC % (auto) Smear Tech's Comments PT INR Sodium 145 Potassium 4.1 Chloride 110 H Carbon Dioxide 25 Anion Gap 14 BUN 33 H Creatinine 1.55 H Estim Creat Clear Calc 26.4 Estimated GFR 32 POC Glucose 69 89 Random Glucose 63 Calcium 8.4 Iron TIBC % Saturation Unsat Iron Binding Ferritin Total Bilirubin 1.1 H Direct Bilirubin 0.7 H AST 510 H ALT 482 H Alkaline Phosphatase 82 Total Creatine Kinase Troponin I High Sens Total Protein 5.2 L Albumin 2.8 L Vitamin B12 Folate TSH Stool Occult Blood COVID-19 ([facility]) COVID-19 Clin Com Hepatitis A IgM Ab Hep Bs Antigen Hep Bs Antibody Hep B Core Total Ab Hepatitis C Ab (EIA) Blood Type Antibody Screen Antibody Identification Antigen Identification Crossmatch Crossmatch ([facility]) 07/26/20 07/26/20 07/27/20 16:30 20:40 07:32 WBC RBC Hgb Hct MCV MCH MCHC RDW Plt Count MPV Immature Gran % (Auto) Neut % (Auto) Lymph % (Auto) [place] % (Auto) Eos % (Auto) Baso % (Auto) Lymph # (Auto) [place] # (Auto) Eos # (Auto) Baso # (Auto) Abs Immat Gran (auto) Absolute Neuts (auto) Absolute Nucleated RBC Nucleated RBC % (auto) Smear Tech's Comments PT INR Sodium Potassium Chloride Carbon Dioxide Anion Gap BUN Creatinine Estim Creat Clear Calc Estimated GFR POC Glucose 86 131 H 94 Random Glucose Calcium Iron TIBC % Saturation Unsat Iron Binding Ferritin Total Bilirubin Direct Bilirubin AST ALT Alkaline Phosphatase Total Creatine Kinase Troponin I High Sens Total Protein Albumin Vitamin B12 Folate TSH Stool Occult Blood COVID-19 ([facility]) COVID-19 Clin Com Hepatitis A IgM Ab Hep Bs Antigen Hep Bs Antibody Hep B Core Total Ab Hepatitis C Ab (EIA) Blood Type Antibody Screen Antibody Identification Antigen Identification Crossmatch Crossmatch ([facility]) 07/27/20 07/27/20 07/27/20 11:07 11:07 11:54 WBC 7.1 RBC 3.49 L Hgb 10.4 L Hct 33.7 L MCV 96.6 MCH 29.8 MCHC 30.9 L RDW 15.9 Plt Count 120 L MPV 11.4 Immature Gran % (Auto) Neut % (Auto) Lymph % (Auto) [place] % (Auto) Eos % (Auto) Baso % (Auto) Lymph # (Auto) [place] # (Auto) Eos # (Auto) Baso # (Auto) Abs Immat Gran (auto) Absolute Neuts (auto) Absolute Nucleated RBC 0.000 Nucleated RBC % (auto) 0.0 Smear Tech's Comments PT INR Sodium 145 Potassium 4.2 Chloride 111 H Carbon Dioxide 27 Anion Gap 11 L BUN 41 H Creatinine 1.79 H Estim Creat Clear Calc 22.8 Estimated GFR 27 POC Glucose 224 H Random Glucose 209 H D Calcium 8.2 L Iron TIBC % Saturation Unsat Iron Binding Ferritin Total Bilirubin 0.9 Direct Bilirubin 0.5 AST 321 H ALT 410 H Alkaline Phosphatase 81 Total Creatine Kinase Troponin I High Sens Total Protein 5.4 L Albumin 2.8 L Vitamin B12 Folate TSH Stool Occult Blood COVID-19 ([facility]) COVID-19 Clin Com Hepatitis A IgM Ab Hep Bs Antigen Hep Bs Antibody Hep B Core Total Ab Hepatitis C Ab (EIA) Blood Type Antibody Screen Antibody Identification Antigen Identification Crossmatch Crossmatch ([facility]) 07/27/20 07/27/20 07/28/20 16:12 20:14 05:14 WBC 7.2 RBC 3.21 L Hgb 9.5 L Hct 31.5 L MCV 98.1 H MCH 29.6 MCHC 30.2 L RDW 15.7 Plt Count 108 L MPV 11.6 Immature Gran % (Auto) Neut % (Auto) Lymph % (Auto) [place] % (Auto) Eos % (Auto) Baso % (Auto) Lymph # (Auto) [place] # (Auto) Eos # (Auto) Baso # (Auto) Abs Immat Gran (auto) Absolute Neuts (auto) Absolute Nucleated RBC 0.000 Nucleated RBC % (auto) 0.0 Smear Tech's Comments PT INR Sodium Potassium Chloride Carbon Dioxide Anion Gap BUN Creatinine Estim Creat Clear Calc Estimated GFR POC Glucose 291 H 152 H Random Glucose Calcium Iron TIBC % Saturation Unsat Iron Binding Ferritin Total Bilirubin Direct Bilirubin AST ALT Alkaline Phosphatase Total Creatine Kinase Troponin I High Sens Total Protein Albumin Vitamin B12 Folate TSH Stool Occult Blood COVID-19 ([facility]) COVID-19 Clin Com Hepatitis A IgM Ab Hep Bs Antigen Hep Bs Antibody Hep B Core Total Ab Hepatitis C Ab (EIA) Blood Type Antibody Screen Antibody Identification Antigen Identification Crossmatch Crossmatch ([facility]) 07/28/20 07/28/20 05:14 07:26 WBC RBC Hgb Hct MCV MCH MCHC RDW Plt Count MPV Immature Gran % (Auto) Neut % (Auto) Lymph % (Auto) [place] % (Auto) Eos % (Auto) Baso % (Auto) Lymph # (Auto) [place] # (Auto) Eos # (Auto) Baso # (Auto) Abs Immat Gran (auto) Absolute Neuts (auto) Absolute Nucleated RBC Nucleated RBC % (auto) Smear Tech's Comments PT INR Sodium 149 H Potassium 4.0 Chloride 114 H Carbon Dioxide 29 Anion Gap 10 L BUN 47 H Creatinine 1.99 H Estim Creat Clear Calc 20.5 Estimated GFR 24 POC Glucose 135 H Random Glucose 119 H D Calcium 8.2 L Iron TIBC % Saturation Unsat Iron Binding Ferritin Total Bilirubin 0.7 Direct Bilirubin 0.4 AST 196 H ALT 315 H Alkaline Phosphatase 81 Total Creatine Kinase Troponin I High Sens Total Protein 5.1 L Albumin 2.6 L Vitamin B12 Folate TSH Stool Occult Blood COVID-19 ([facility]) COVID-19 Clin Com Hepatitis A IgM Ab Hep Bs Antigen Hep Bs Antibody Hep B Core Total Ab Hepatitis C Ab (EIA) Blood Type Antibody Screen Antibody Identification Antigen Identification Crossmatch Crossmatch ([facility]) Airway Mallampati Class: II TM Dist: >3cm Neck ROM: Limited Denture: Upper and Lower Assessment and Plan Assessment Anesthesia Assessment: Anesthesia Plan Discussed and Chart Reviewed Final Anesthetic Review NPO: Yes ASA Class: IV Final Preanesthetic Review: No Changes in Pt Med Stat, Meds/Allgs Chart Reviewed, Consent Obtained/Reviewed and Anes Risks/Benef Reviewed Patient Risk: High Procedure Risk: Low Assessment/Block/Sedation in SS: Assess/Block/Sedation-SS Anesthetic Plan Anesthetic Plan: MAC: Disposition: Standard PACU
--- NOTE | 2020-07-28 08:13 | PC.NURSE ---
Patient information originally documented under cancelled OR case for correct patient. Undone and documented correct OR account for todays encounter
--- NOTE | 2020-07-28 08:28 | W.PM.OPN ---
Operative Note Operative Note Date of Service: 07/28/20 Narrative: Preop diagnosis: Large Right thigh hematoma Post up diagnosis: Large Right thigh hematoma Procedure: Evacuation of large right thigh hematoma under monitored anesthesia care Surgeon: Jason Sung M.D. The patient is a 79-year-old female who had fallen last week at home and developed a large right thigh hematoma. She had been on Eliquis. The Eliquis was held and she was scheduled for evacuation of hematoma in view of significant tenderness and pain on area. She also had started to have significant changes on the overlying skin due to pressure from the large hematoma. The hematoma measured 7.5 cm at its widest dimension on CAT scan imaging. She understood the technique of the procedure and she was aware of the risks, benefits, and alternatives. Her daughter was also involved with the discussions. She was brought to the operating room and placed supine on the bed. The right thigh was abducted to expose the medial aspect. Examination showed a large hematoma which was tender with significant skin changes. She was also noted to be very tender in the area and had severe pain with movement. She was placed under monitored anesthesia care. The area of the medial thigh was prepped and draped in the usual sterile fashion and a surgical time was done. The patient received cefazolin 2 g IV preoperatively. I then infiltrated the planned line of incision on the skin overlying the hematoma with lidocaine 1%. I made an incision in the skin using blade 15. This was carried down through the full-thickness of the the skin into the subcutaneous layer. The incision was then extended to the as deep subcutaneous layer via blunt dissection with a hemostat until I was to see the hematoma. I then proceeded to remove the hematoma using my finger and large, organized clots where removed. This effectively decompressed the area area and they were subsequently was much less swelling and induration. The incision was about 3 cm long. I irrigated the area of the incision. I left the incision open. I covered the incision with thick gauze and wrapped the thigh with Kerlix as well as Jossue bandage. There was note of good hemostasis at the end of the procedure. I also infiltrated the area around incision with Marcaine 0.5% for postop anesthesia prior to placement of the dressing. Procedure was then completed. The patient tolerated procedure well. Initial and final counts of sponges and instruments were correct. There was minimal blood loss although there were large amounts of clots that were removed. The patient was then transferred to the recovery room with stable vital signs.
--- NOTE | 2020-07-28 08:47 | PM.OP ---
Brief Operative Note Date of Service: 07/28/20 Pre-op diagnosis: right thigh hematoma Post-op diagnosis: same Procedure: evac of right thigh hematoma Surgeon: Jason Sung MD Anesthesia: MAC and local Estimated blood loss (mL): 5 Pathology: other (hematoma) Condition: stable Disposition: PACU
[2020-07-28 10:33] LABS: Glucose, Whole Blood 134 mg/dL (60-115)
[2020-07-28] MEDS: 0.9 % Sodium Chloride Flush 3 ML SYRINGE IVFLUSH ×2 (10:33→20:07)
--- NOTE | 2020-07-28 11:24 | P.PNCA_ITS ---
Subjective Subjective Date of Service: 07/28/20 Principal diagnosis: Fall, Right thigh hematoma, anemia, NSTEMI Interval history: Patient confused status post surgery this morning for thigh a hematoma evacuation. Underwent surgery. No chest pain. However she is c onfused at this point in time Review of Systems Review of Systems Yes Unobtainable due to mental status Reports confusion Psychiatric: Reports confusion Physical Exam Vital Signs: Last Vital Signs Temp 98.5 F 07/28/20 08:30 Pulse 66 07/28/20 09:45 Resp 18 07/28/20 09:45 BP 141/64 H 07/28/20 09:45 Pulse Ox 99 07/28/20 09:45 Body Mass Index 32.3 Const General: comfortable, no acute distress, confusion and lethargic Orientation/consciousness: confusion and lethargic Neck Neck: Yes trachea midline, Yes supple and Yes no JVD Resp Effort & Inspection: decreased respiratory effort Auscultation: diminished lung sounds Cardio Jugular venous distension: no JVD Palpation: normal PMI Rate: regular rate Rhythm: regular rhythm Heart sounds: S1 normal heart sound present and S2 normal heart sound present GI Auscultation: normal bowel sounds Neuro General: confusion Extrem General: Yes no clubbing, cyanosis or edema Results Labs and Meds Result diagrams: 07/28/20 05:14 07/28/20 05:14 Lab results: Laboratory Results - last 24 hr 07/27/20 07/27/20 07/27/20 11:07 11:54 16:12 WBC RBC Hgb Hct MCV MCH MCHC RDW Plt Count MPV Absolute Nucleated RBC Nucleated RBC % (auto) Sodium 145 Potassium 4.2 Chloride 111 H Carbon Dioxide 27 Anion Gap 11 L BUN 41 H Creatinine 1.79 H Estim Creat Clear Calc 22.8 Estimated GFR 27 POC Glucose 224 H 291 H Random Glucose 209 H D Calcium 8.2 L Total Bilirubin 0.9 Direct Bilirubin 0.5 AST 321 H ALT 410 H Alkaline Phosphatase 81 Total Protein 5.4 L Albumin 2.8 L 07/27/20 07/28/20 07/28/20 20:14 05:14 05:14 WBC 7.2 RBC 3.21 L Hgb 9.5 L Hct 31.5 L MCV 98.1 H MCH 29.6 MCHC 30.2 L RDW 15.7 Plt Count 108 L MPV 11.6 Absolute Nucleated RBC 0.000 Nucleated RBC % (auto) 0.0 Sodium 149 H Potassium 4.0 Chloride 114 H Carbon Dioxide 29 Anion Gap 10 L BUN 47 H Creatinine 1.99 H Estim Creat Clear Calc 20.5 Estimated GFR 24 POC Glucose 152 H Random Glucose 119 H D Calcium 8.2 L Total Bilirubin 0.7 Direct Bilirubin 0.4 AST 196 H ALT 315 H Alkaline Phosphatase 81 Total Protein 5.1 L Albumin 2.6 L 07/28/20 07/28/20 07:26 10:27 WBC RBC Hgb Hct MCV MCH MCHC RDW Plt Count MPV Absolute Nucleated RBC Nucleated RBC % (auto) Sodium Potassium Chloride Carbon Dioxide Anion Gap BUN Creatinine Estim Creat Clear Calc Estimated GFR POC Glucose 135 H 134 H Random Glucose Calcium Total Bilirubin Direct Bilirubin AST ALT Alkaline Phosphatase Total Protein Albumin Progress Note: A&P Assessment and plan (1) NSTEMI (non-ST elevated myocardial infarction): Status: Acute Assessment and Plan: NSTEMI related to medical issue with significant anemia with underlying diffuse coronary disease. Currently not having any chest pain. Continue to manage m edically. No interventions required. Blood pressure is currently optimal. Continue statin therapy. (2) Hematoma of right thigh: Status: Acute Assessment and Plan: Hematoma the right thigh status post evacuation. Continue to monitor H& H. Transfuse as needed given her underlying complicated cardiac history. Being monitored by surgery. (3) Paroxysmal atrial fibrillation: Status: Acute Assessment and Plan: Paroxysmal atrial fibrillation in the past has been highly symptomatic recurrent hospitalization heart failure syndrome. Would restart her amiodarone as before as soon as possible. Her elevated LFTs are related to her gallstone disease. Continue monitor LFTs. Hold off on oral anticoagulation given her recent large hematoma with life-threatening bleed. Once hematoma is under control in a week's time can resume oral anticoagulation after clearance with surgery. (4) (HFpEF) heart failure with preserved ejection fraction: Status: Acute Assessment and Plan: Prior history of heart failure preserved ejection fraction setting of atrial fibrillation as well as due to aortic stenosis. Clinically euvolemic and well compensated. Continue current management. Continue monitor her renal function. Avoid significant fluid overload and resuscitation. (5) S/P TAVR (transcatheter aortic valve replacement): Problem details: 02/2020 for symptomatic severe with 23 mm valve Status: Acute Assessment and Plan: Status post transcatheter aortic valve replacement for severe aortic stenosis. SBE prophylaxis. Does have higher than expected gradient for transcatheter aortic valve replacement probably due to smaller prosthesis. Resume oral anticoagulation as above. Will sign of the case. Please feel free to consult us when needed. Fall Risk Details Current Medications: Current Medications Generic Name Dose Route Start Last Admin Trade Name Freq PRN Reason Stop Dose Admin Acetaminophen 650 mg 07/28/20 07:57 Acetaminophen 325 Mg Tablet PO ONCE PRN Pain, Mild (Pain Scale 1-3) Calcitriol 0.25 mcg 07/25/20 09:00 07/25/20 10:03 Calcitriol 0.25 Mcg Capsule PO 0.25 mcg MoWeFr [facility] Administration Docusate Sodium 100 mg 07/25/20 21:00 07/27/20 21:19 Docusate Sodium 100 Mg Capsule PO Not Given BEDTIME [facility] Fentanyl 25 mcg 07/28/20 07:57 Fentanyl Citrate/Pf 100 Mcg/2 Ml Vial IVPUSH Q5M PRN Pain, Moderate (Pain Scale 4-6 Ferrous Sulfate 324 mg 07/24/20 08:30 07/28/20 10:33 Ferrous Sulfate 324 Mg Tablet.Dr PO Not Given BIDPC [facility] Hydralazine HCl 100 mg 07/24/20 09:00 07/27/20 21:19 Hydralazine Hcl 50 Mg Tablet PO Not Given BID [facility] Dextrose 1,000 mls @ 100 mls/hr 07/28/20 07:45 07/28/20 10:33 D5w IVCONT 07/28/20 17:44 Not Given .Q10H [facility]ER Sodium Chloride 500 mls @ 20 mls/hr 07/28/20 08:00 07/28/20 07:50 Ns IVCONT 07/29/20 08:59 20 mls/hr .Q24H [facility] Administration Insulin Human Lispro 0 unit 07/27/20 16:45 07/28/20 10:28 Insulin Lispro 100 Unit/Ml 3 Ml Vial SUBCUT Not Given QIDACHS [facility] Protocol Isosorbide Mononitrate 30 mg 07/24/20 09:00 07/27/20 10:14 Isosorbide Mononitrate 30 Mg Tab.Er.24h PO 30 mg DAILY [facility] Administration Protocol Meclizine HCl 25 mg 07/24/20 09:00 07/27/20 21:22 Meclizine Hcl 12.5 Mg Tablet PO Not Given BID [facility] Memantine 10 mg 07/24/20 09:00 07/27/20 21:22 Memantine Hcl 10 Mg Tablet PO Not Given BID [facility] Non-Formulary Medication 6 mg 07/24/20 09:00 Rivastigmine Tartrate PO BID [facility] Omeprazole 20 mg 07/27/20 06:30 07/28/20 04:05 Omeprazole 20 Mg Capsule.Dr PO Not Given DAILY@0630 [facility] Oxycodone HCl 5 mg 07/25/20 13:15 Oxycodone Hcl Immed Release 5 Mg Tablet PO Q4H PRN Pain, Moderate (Pain Scale 4-6 Oxycodone HCl 5 mg 07/28/20 08:45 Oxycodone Hcl Immed Release 5 Mg Tablet PO Q4H PRN Pain, Mild (Pain Scale 1-3) Pregabalin 50 mg 07/24/20 09:00 07/27/20 21:23 Pregabalin 50 Mg Capsule PO Not Given TID [facility] Senna 17.2 mg 07/25/20 21:00 07/27/20 21:23 Sennosides 8.6 Mg Tablet PO Not Given BEDTIME [facility] Sertraline HCl 100 mg 07/24/20 09:00 07/27/20 10:14 Sertraline Hcl 100 Mg Tablet PO 100 mg DAILY [facility] Administration Sodium Chloride 3 ml 07/24/20 08:00 07/28/20 10:33 0.9 % Sodium Chloride Flush 3 Ml Syringe IVFLUSH 3 ml QSHIFT [facility] Administration Tiotropium [place] 1 puff 07/24/20 12:31 07/28/20 07:30 Tiotropium [place] 18 Mcg Cap.W.Dev INHALE Not Given RDAILY [facility] Vitamin D 25 mcg 07/24/20 09:00 07/27/20 10:14 Cholecalciferol (Vitamin D3) 25 Mcg Tablet PO 25 mcg DAILY [facility] Administration Time Spent With Patient Time: Total time spent is greater than 50% in coordination of care (as documented) at patient's floor/unit and/or counseling patient: Time with patient: 25 - 35 minutes
--- NOTE | 2020-07-28 11:37 | MHC.CLN ---
F/U RECOMMEND 1200 CALORIES PER DAY TO PROMOTE SLOW WT LOSS RECOMMEND 1200DM 2GM NA R/T HX CHF WILL ALSO ADD HARVEY FOR WOUND HEALING FOLLOWING
[2020-07-28] MEDS: Isosorbide Mononitrate 30 MG TAB.ER.24H PO (11:38)
[2020-07-28] MEDS: Pregabalin 50 MG CAPSULE PO ×3 (11:38→20:07)
[2020-07-28] MEDS: Cholecalciferol (Vitamin D3) 25 MCG TABLET PO (11:38)
[2020-07-28] MEDS: Meclizine HCl 12.5 MG TABLET 25 MG PO ×2 (11:38→20:06)
[2020-07-28] MEDS: Sertraline HCL 100 MG TABLET PO (11:38)
[2020-07-28] MEDS: Memantine HCl 10 MG TABLET PO ×2 (11:39→20:07)
[2020-07-28] MEDS: hydrALAZINE HCl 50 MG TABLET 100 MG PO ×2 (11:39→20:06)
[2020-07-28 11:42] LABS: Glucose, Whole Blood 161 mg/dL (60-115)
[2020-07-28] MEDS: calcitrioL 0.25 MCG CAPSULE PO (11:42)
--- NOTE | 2020-07-28 11:43 | MHC.CM.PN ---
per rounds pt inor today will have a pt eval prior to dc dc expected in 1 to days
--- NOTE | 2020-07-28 14:30 | P.EN_ITS ---
Event Note Date of Service: 07/28/20 Event Note: Underwent evacuation of a large hematoma from the right thigh zack ier today Looks comfortable Good pain control so for Dressings dry Continue pain management Wound care Plan on changing the dressings tomorrow Daughter Lida updated by phone
--- NOTE | 2020-07-28 14:46 | P.PNIM_ITS ---
Subjective Subjective Date of Service: 07/28/20 Interval History: seen and examined this afternoon denies any pain -- leg or abdominal knows she went for a procedure this AM but feels confused ROS General - no fevers or chills Cardiovascular - no chest pain Respiratory - no shortness of breath or cough Abdominal- no abdominal pain, nausea, vomiting, diarrhea Physical Exam Vital Signs: Vital Signs: Last Vital Signs Temp 98.4 F 07/28/20 12:00 Pulse 66 07/28/20 12:00 Resp 16 07/28/20 12:00 BP 133/67 07/28/20 12:00 Pulse Ox 96 07/28/20 12:00 Body Mass Index 32.3 Const: Other: General - no acute distress, appears comfortable Cardiovascular - regular rate and rhythm, S1-S2 Lungs - normal respiratory effort, clear to auscultation bilaterally, no wheezing Abdomen - soft, nontender, no rebound or guarding Extremities - R thigh in compression dressing Neuro - awake and alert, no focal deficits; oriented to place and some what to situtation Objective Data Current Medications Generic Name Dose Route Start Last Admin Trade Name Freq PRN Reason Stop Dose Admin Acetaminophen 650 mg 07/28/20 07:57 Acetaminophen 325 Mg Tablet PO ONCE PRN Pain, Mild (Pain Scale 1-3) Calcitriol 0.25 mcg 07/25/20 09:00 07/28/20 11:42 Calcitriol 0.25 Mcg Capsule PO 0.25 mcg MoWeFr [facility] Administration Docusate Sodium 100 mg 07/25/20 21:00 07/27/20 21:19 Docusate Sodium 100 Mg Capsule PO Not Given BEDTIME [facility] Fentanyl 25 mcg 07/28/20 07:57 Fentanyl Citrate/Pf 100 Mcg/2 Ml Vial IVPUSH Q5M PRN Pain, Moderate (Pain Scale 4-6 Ferrous Sulfate 324 mg 07/24/20 08:30 07/28/20 10:33 Ferrous Sulfate 324 Mg Tablet. PO Not Given BIDPC [facility] Hydralazine HCl 100 mg 07/24/20 09:00 07/28/20 11:39 Hydralazine Hcl 50 Mg Tablet PO 100 mg BID [facility] Administration Dextrose 1,000 mls @ 100 mls/hr 07/28/20 07:45 07/28/20 10:33 D5w IVCONT 07/28/20 17:44 Not Given .Q10H [facility] Sodium Chloride 500 mls @ 20 mls/hr 07/28/20 08:00 07/28/20 07:50 Ns IVCONT 07/29/20 08:59 20 mls/hr .Q24H [facility] Administration Insulin Human Lispro 0 unit 07/27/20 16:45 07/28/20 13:30 Insulin Lispro 100 Unit/Ml 3 Ml Vial SUBCUT Not Given QIDACHS [facility] Protocol Isosorbide Mononitrate 30 mg 07/24/20 09:00 07/28/20 11:38 Isosorbide Mononitrate 30 Mg Tab.Er.24h PO 30 mg DAILY [facility] Administration Protocol Meclizine HCl 25 mg 07/24/20 09:00 07/28/20 11:38 Meclizine Hcl 12.5 Mg Tablet PO 25 mg BID [facility] Administration Memantine 10 mg 07/24/20 09:00 07/28/20 11:39 Memantine Hcl 10 Mg Tablet PO 10 mg BID [facility] Administration Non-Formulary Medication 6 mg 07/24/20 09:00 Rivastigmine Tartrate PO BID [facility] Omeprazole 20 mg 07/27/20 06:30 07/28/20 04:05 Omeprazole 20 Mg Capsule.Dr PO Not Given DAILY@0630 [facility] Oxycodone HCl 5 mg 07/25/20 13:15 Oxycodone Hcl Immed Release 5 Mg Tablet PO Q4H PRN Pain, Moderate (Pain Scale 4-6 Oxycodone HCl 5 mg 07/28/20 08:45 Oxycodone Hcl Immed Release 5 Mg Tablet PO Q4H PRN Pain, Mild (Pain Scale 1-3) Pregabalin 50 mg 07/24/20 09:00 07/28/20 11:38 Pregabalin 50 Mg Capsule PO 50 mg TID [facility] Administration Senna 17.2 mg 07/25/20 21:00 07/27/20 21:23 Sennosides 8.6 Mg Tablet PO Not Given BEDTIME [facility] Sertraline HCl 100 mg 07/24/20 09:00 07/28/20 11:38 Sertraline Hcl 100 Mg Tablet PO 100 mg DAILY [facility] Administration Sodium Chloride 3 ml 07/24/20 08:00 07/28/20 10:33 0.9 % Sodium Chloride Flush 3 Ml Syringe IVFLUSH 3 ml QSHIFT [facility] Administration Tiotropium [place] 1 puff 07/24/20 12:31 07/28/20 07:30 Tiotropium [place] 18 Mcg Cap.W.Dev INHALE Not Given RDAILY [facility] Vitamin D 25 mcg 07/24/20 09:00 07/28/20 11:38 Cholecalciferol (Vitamin D3) 25 Mcg Tablet PO 25 mcg DAILY [facility] Administration Labs CBC & Chem 7: 07/28/20 05:14 07/28/20 05:14 Assessment and Plan (1) Hematoma: Status: Acute Assessment and Plan: This is a 79 yo F with a PMH of HTN, HLD, DM, A. Fib on Eliquis who presented after a mechanical fall and was diagnosed with acute blood loss anemia secondry to R medial thigh hematoma. 1. Acute Blood Loss Anemia, secondary to R thigh hematoma s/p 2 units PRBCs; s/p evacuation today Gen Surg on Board 2. HyperNa due to poor oral intake D5W repeat chem now and adjust fluids 3. Transaminitis down trending clinically no RUQ pain to suggest acute earle 3. Thromcytopnia chornic monitor 4. LINDA on CKD stage 3/4 SCr increasing, suspect from poor oral intake IVF 5. DM sliding scale poc qidac 6. PAF currently in sinus continue baseline meds except eliquis amiodaron 200mg daily 7. Positive occult blood GI input appreciated outpatient f/u in GI clinic Full Code DVT pptx, mechanical (if she can tolerate); cannot to pharmacologic due to acute bleed
[2020-07-28 15:38] LABS: Anion Gap 12 (12-20); Blood Urea Nitrogen 46 mg/dL (9-16); Calcium 7.9 mg/dL (8.4-10.2); Carbon Dioxide 24 mmol/L (22-29); Chloride 112 mmol/L (96-108); Creatinine Clr Calc Pharmacy 20.5; Estimated Glomerular Filt Rate 24; Glucose Random 308 mg/dL (60-115); Potassium 4.2 mmol/L (3.3-5.1); Sodium 144 mmol/L (135-145)
[2020-07-28] MEDS: Amiodarone HCL 200 MG TABLET PO (16:16)
[2020-07-28 16:17] LABS: Glucose, Whole Blood 227 mg/dL (60-115)
[2020-07-28] MEDS: Insulin Lispro 100 UNIT/ML 3 ML VIAL SUBCUT ×2 (16:17→20:06)
[2020-07-28] MEDS: Ferrous Sulfate 324 MG TABLET.DR PO (16:18)
[2020-07-28 19:32] LABS: Glucose, Whole Blood 188 mg/dL (60-115)
[2020-07-28] MEDS: Docusate Sodium 100 MG CAPSULE PO (20:06)
[2020-07-28] MEDS: Sennosides 8.6 MG TABLET 17.2 MG PO (20:06)
[2020-07-29] VITALS (7 sets, daily range): BP systolic 131–160; BP diastolic 54–71; PULSE 65–70; RESP 14–20; TEMP 36.4–37.3; O2SAT 94–96
[2020-07-29] MEDS: Omeprazole 20 MG CAPSULE.DR PO (05:15)
[2020-07-29 06:42] LABS: Hematocrit 33.2 % (37-47); Hemoglobin 9.9 g/dl (12.0-16.0); Mean Corpuscular HGB Conc 29.8 g/dl (31.0-35.0); Mean Corpuscular Hemoglobin 28.9 pg (27.0-33.0); Mean Corpuscular Volume 97.1 fL (80-98); Mean Platelet Volume 11.8 fL (9.4-12.3); Platelet Count 122 X10*3/uL (160-400); Red Blood Count 3.42 X10*6/uL (4.20-5.50); Red Cell Distribution Width 15.7 % (11.0-16.0); White Blood Count 7.6 X10*3/uL (4.8-10.8)
--- NOTE | 2020-07-29 06:45 | HO.POSTANES ---
Post Anesthesia Evaluation Post Anesthesia Evaluation Vital Signs: Vital Signs Temp Pulse Resp BP Pulse Ox 07/29/20 03:08 98.9 F 70 16 131/59 L 94 07/29/20 00:00 98.1 F 70 16 151/70 H 95 07/28/20 20:06 70 132/58 L 07/28/20 18:54 96.8 F 70 18 132/58 L 93 Anesthesia: Monitored Mental Status: Awake Pain Control: Satisfactory Nausea/Vomiting: None Hydration: Adequate Anesthesia-Related Issues: No Anes. Related Issues
[2020-07-29 06:56] LABS: Alanine Aminotransferase 182 U/L (0-31); Albumin Level 2.7 g/dL (3.5-5.0); Alkaline Phosphatase 83 U/L (39-117); Anion Gap 9 (12-20); Aspartate Amino Transferase 149 U/L (5-31); Bilirubin Direct 0.4 mg/dL (0.0-0.5); Bilirubin Total 0.6 mg/dL (0.0-1.0); Blood Urea Nitrogen 45 mg/dL (9-16); Calcium 8.2 mg/dL (8.4-10.2); Carbon Dioxide 29 mmol/L (22-29); Chloride 111 mmol/L (96-108); Estimated Glomerular Filt Rate 26; Glucose Random 102 mg/dL (60-115); Potassium 4.4 mmol/L (3.3-5.1); Sodium 145 mmol/L (135-145); Total Protein 5.3 g/dL (6.5-8.0)
[2020-07-29] MEDS: Memantine HCl 10 MG TABLET PO ×2 (07:23→21:28)
[2020-07-29] MEDS: Ferrous Sulfate 324 MG TABLET.DR PO ×2 (07:24→16:34)
[2020-07-29] MEDS: Cholecalciferol (Vitamin D3) 25 MCG TABLET PO (07:24)
[2020-07-29] MEDS: Sertraline HCL 100 MG TABLET PO (07:24)
[2020-07-29] MEDS: Meclizine HCl 12.5 MG TABLET 25 MG PO (07:24)
[2020-07-29] MEDS: Amiodarone HCL 200 MG TABLET PO (07:24)
[2020-07-29] MEDS: Pregabalin 50 MG CAPSULE PO (07:24)
[2020-07-29] MEDS: Isosorbide Mononitrate 30 MG TAB.ER.24H PO (07:25)
[2020-07-29] MEDS: hydrALAZINE HCl 50 MG TABLET 100 MG PO ×2 (07:25→21:28)
[2020-07-29] MEDS: 0.9 % Sodium Chloride Flush 3 ML SYRINGE IVFLUSH ×3 (07:25→23:41)
[2020-07-29 07:58] LABS: Glucose, Whole Blood 118 mg/dL (60-115)
--- NOTE | 2020-07-29 08:52 | P.PNGS_ITS ---
Subjective Subjective Date of Service: 07/29/20 <Sandra Isbell PA-C - Last Filed: 07/29/20 08:56> 07/29/20 <Jason Sung MD - Last Filed: 07/29/20 14:05> Interval history: Sleeping. Currently denies pain at drainage site. <Sandra Isbell PA-C - Last Filed: 07/29/20 08:56> Physical Exam Vital Signs: Vital Signs: Last Vital Signs Temp 98.0 F 07/29/20 07:21 Pulse 67 07/29/20 07:21 Resp 20 07/29/20 07:21 BP 160/71 H 07/29/20 07:21 Pulse Ox 94 07/29/20 07:21 Body Mass Index 32.3 <Sandra Isbell PA-C - Last Filed: 07/29/20 08:56> Const: General: comfortable and no acute distress <EVELIA Rubio - Last Filed: 07/29/20 08:56> Orientation/consciousness: patient oriented x3 <Sandra Isbell PA-C - Last Filed: 07/29/20 08:56> Resp: Effort & Inspection: normal respiratory effort <Sandra Isbell PA-C - Last Filed: 07/29/20 08:56> Cardio: Rate: regular rate <Sandra Isbell PA-C - Last Filed: 07/29/20 08:56> Skin: Other: normal color, warm and dry <Sandra Isbell PA-C - Last Filed: 07/29/20 08:56> Neuro: General: patient oriented x3 <Sandra Isbell PA-C - Last Filed: 07/29/20 08:56> Extrem: Other: right thigh- incision and drainage site open, small amount of residual old blood draining from opening, no new blood noted, mildly tender at hematoma site, no necrosis noted <BLADIMIR Rubio Last Filed: 07/29/20 08:56> Progress Note: A&P Assessment and plan (1) Hematoma of right thigh: Problem details: POD #1 s/p incision and drainage of right thigh hematoma <Sandra Isbell PA-C - Last Filed: 07/29/20 08:56> Status: Acute <Sandra Isbell PA-C - Last Filed: 07/29/20 08:56> Assessment and Plan: Doing well, comfortable. VSS. Right thigh drainage site well drainged, remains open, draining small amount of residual old blood and no new blood. H/H stable, platelets increasing. Continue daily dressing changes with fluffs/abd, kerlix wrap and chester. <Sandra Isbell PA-C - Last Filed: 07/29/20 08:56> drowsy denies any abdl pain hematoma site feels much better looks comfortable ok to do PT with weight bearing dressings dry wound care - dry dressings daily seen and examined - agree with ANGÉLICA Isbell <Jason Sung MD - Last Filed: 07/29/20 14:05> Fall Risk Details Current Medications: Current Medications Generic Name Dose Route Start Last Admin Trade Name Freq PRN Reason Stop Dose Admin Amiodarone HCl 200 mg 07/28/20 15:15 07/29/20 07:24 Amiodarone Hcl 200 Mg Tablet PO 200 mg DAILY [facility]INDER Administration Calcitriol 0.25 mcg 07/25/20 09:00 07/28/20 11:42 Calcitriol 0.25 Mcg Capsule PO 0.25 mcg MoWeFr [facility] Administration Docusate Sodium 100 mg 07/25/20 21:00 07/28/20 20:06 Docusate Sodium 100 Mg Capsule PO 100 mg BEDTIME [facility]ER Administration Ferrous Sulfate 324 mg 07/24/20 08:30 07/29/20 07:24 Ferrous Sulfate 324 Mg Tablet. PO 324 mg BIDPC [facility]INDER Administration Hydralazine HCl 100 mg 07/24/20 09:00 07/29/20 07:25 Hydralazine Hcl 50 Mg Tablet PO 100 mg BID [facility] Administration Insulin Human Lispro 0 unit 07/27/20 16:45 07/29/20 07:22 Insulin Lispro 100 Unit/Ml 3 Ml Vial SUBCUT Not Given QIDACHS [facility] Protocol Isosorbide Mononitrate 30 mg 07/24/20 09:00 07/29/20 07:25 Isosorbide Mononitrate 30 Mg Tab.Er.24h PO 30 mg DAILY SATINDER Administration Protocol Meclizine HCl 25 mg 07/24/20 09:00 07/29/20 07:24 Meclizine Hcl 12.5 Mg Tablet PO 25 mg BID [facility] Administration Memantine 10 mg 07/24/20 09:00 07/29/20 07:23 Memantine Hcl 10 Mg Tablet PO 10 mg BID [facility] Administration Non-Formulary Medication 6 mg 07/24/20 09:00 Rivastigmine Tartrate PO BID [facility] Omeprazole 20 mg 07/27/20 06:30 07/29/20 05:15 Omeprazole 20 Mg Capsule.Dr PO 20 mg DAILY@0630 [facility] Administration Oxycodone HCl 5 mg 07/25/20 13:15 Oxycodone Hcl Immed Release 5 Mg Tablet PO Q4H PRN Pain, Moderate (Pain Scale 4-6 Oxycodone HCl 5 mg 07/28/20 08:45 Oxycodone Hcl Immed Release 5 Mg Tablet PO Q4H PRN Pain, Mild (Pain Scale 1-3) Pregabalin 50 mg 07/24/20 09:00 07/29/20 07:24 Pregabalin 50 Mg Capsule PO 50 mg TID [facility] Administration Senna 17.2 mg 07/25/20 21:00 07/28/20 20:06 Sennosides 8.6 Mg Tablet PO 17.2 mg BEDTIME [facility]ER Administration Sertraline HCl 100 mg 07/24/20 09:00 07/29/20 07:24 Sertraline Hcl 100 Mg Tablet PO 100 mg DAILY [facility] Administration Sodium Chloride 3 ml 07/24/20 08:00 07/29/20 07:25 0.9 % Sodium Chloride Flush 3 Ml Syringe IVFLUSH 3 ml QSHIFT [facility] Administration Tiotropium [place] 1 puff 07/24/20 12:31 07/29/20 07:14 Tiotropium [place] 18 Mcg Cap.W.Dev INHALE 1 puff RDAILY [facility] Administration Vitamin D 25 mcg 07/24/20 09:00 07/29/20 07:24 Cholecalciferol (Vitamin D3) 25 Mcg Tablet PO 25 mcg DAILY [facility] Administration <Sandra Isbell PA-C - Last Filed: 07/29/20 08:56> Time Spent With Patient Time: Total time spent is greater than 50% in coordination of care (as documented) at patient's floor/unit and/or counseling patient: <Sandra Isbell PA-C - Last Filed: 07/29/20 08:56> Time with patient: 15 - 24 minutes <Sandra Isbell PA-C - Last Filed: 07/29/20 08:56> Procedures Date of Service Date of Service: 07/29/20 <Sandra Isbell PA-C - Last Filed: 07/29/20 08:56>
[2020-07-29 12:11] LABS: Glucose, Whole Blood 151 mg/dL (60-115)
[2020-07-29] MEDS: Insulin Lispro 100 UNIT/ML 3 ML VIAL SUBCUT ×2 (12:33→16:33)
[2020-07-29 16:11] LABS: Glucose, Whole Blood 172 mg/dL (60-115)
--- NOTE | 2020-07-29 17:06 | HO.PM.IMPN ---
Subjective Subjective Date of Service: 07/29/20 Interval History: seen and examined this AM and afternoon again very sleepy in the AM, waking up later reports no complaints Physical Exam Vital Signs: Vital Signs: Last Vital Signs Temp 99.1 F 07/29/20 15:30 Pulse 66 07/29/20 15:30 Resp 16 07/29/20 15:30 BP 140/54 H 07/29/20 15:30 Pulse Ox 96 07/29/20 15:30 Body Mass Index 32.3 Const: Other: General - no acute distress, appears comfortable Cardiovascular - regular rate and rhythm, S1-S2 Lungs - normal respiratory effort, clear to auscultation bilaterally, no wheezing Abdomen - soft, nontender, no rebound or guarding Extremities - R thigh in compression dressing Neuro - awake and alert, no focal deficits; oriented to place and some what to situtation Objective Data Current Medications Generic Name Dose Route Start Last Admin Trade Name Freq PRN Reason Stop Dose Admin Amiodarone HCl 200 mg 07/28/20 15:15 07/29/20 07:24 Amiodarone Hcl 200 Mg Tablet PO 200 mg DAILY [facility] Administration Calcitriol 0.25 mcg 07/25/20 09:00 07/28/20 11:42 Calcitriol 0.25 Mcg Capsule PO 0.25 mcg MoWeFr [facility] Administration Docusate Sodium 100 mg 07/25/20 21:00 07/28/20 20:06 Docusate Sodium 100 Mg Capsule PO 100 mg BEDTIME [facility] Administration Ferrous Sulfate 324 mg 07/24/20 08:30 07/29/20 16:34 Ferrous Sulfate 324 Mg Tablet. PO 324 mg BIDPC [facility] Administration Hydralazine HCl 100 mg 07/24/20 09:00 07/29/20 07:25 Hydralazine Hcl 50 Mg Tablet PO 100 mg BID [facility] Administration Insulin Human Lispro 0 unit 07/27/20 16:45 07/29/20 16:33 Insulin Lispro 100 Unit/Ml 3 Ml Vial SUBCUT 2 unit QIDACHS [facility] Administration Protocol Isosorbide Mononitrate 30 mg 07/24/20 09:00 07/29/20 07:25 Isosorbide Mononitrate 30 Mg Tab.Er.24h PO 30 mg DAILY [facility] Administration Protocol Meclizine HCl 25 mg 07/24/20 09:00 07/29/20 07:24 Meclizine Hcl 12.5 Mg Tablet PO 25 mg BID [facility] Administration Memantine 10 mg 07/24/20 09:00 07/29/20 07:23 Memantine Hcl 10 Mg Tablet PO 10 mg BID [facility] Administration Non-Formulary Medication 6 mg 07/24/20 09:00 Rivastigmine Tartrate PO BID [facility] Omeprazole 20 mg 07/27/20 06:30 07/29/20 05:15 Omeprazole 20 Mg Capsule.Dr PO 20 mg DAILY@0630 [facility] Administration Oxycodone HCl 2.5 mg 07/29/20 17:05 Oxycodone Hcl Immed Release 5 Mg Tablet PO Q6H PRN Pain, Mild (Pain Scale 1-3) Pregabalin 50 mg 07/24/20 09:00 07/29/20 16:32 Pregabalin 50 Mg Capsule PO Not Given TID [facility] Senna 17.2 mg 07/25/20 21:00 07/28/20 20:06 Sennosides 8.6 Mg Tablet PO 17.2 mg BEDTIME [facility] Administration Sertraline HCl 100 mg 07/24/20 09:00 07/29/20 07:24 Sertraline Hcl 100 Mg Tablet PO 100 mg DAILY [facility] Administration Sodium Chloride 3 ml 07/24/20 08:00 07/29/20 16:34 0.9 % Sodium Chloride Flush 3 Ml Syringe IVFLUSH 3 ml QSHIFT [facility] Administration Tiotropium [place] 1 puff 07/24/20 12:31 07/29/20 07:14 Tiotropium [place] 18 Mcg Cap.W.Dev INHALE 1 puff RDAILY [facility] Administration Vitamin D 25 mcg 07/24/20 09:00 07/29/20 07:24 Cholecalciferol (Vitamin D3) 25 Mcg Tablet PO 25 mcg DAILY [facility] Administration Labs CBC & Chem 7: 07/29/20 05:14 07/29/20 05:14 Microbiology Microbiology Results: Microbiology 07/27/20 15:13 Blood - Venous Blood Culture - Final Streptococcus viridans group 07/27/20 15:12 Blood - Venous Blood Culture - Preliminary No growth after 24 hours. Assessment and Plan (1) Hematoma: Status: Acute Assessment and Plan: This is a 79 yo F with a PMH of HTN, HLD, DM, A. Fib on Eliquis who presented after a mechanical fall and was diagnosed with acute blood loss anemia secondry to R medial thigh hematoma. 1. Acute Blood Loss Anemia, secondary to R thigh hematoma s/p 2 units PRBCs; s/p evacuation today Gen Surg on Board h/h remains stable 2. HyperNa resolved encourage oral hydration 3. Transaminitis down trending clinically no RUQ pain to suggest acute earle 3. Thromcytopnia chornic monitor 4. 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 DM sliding scale poc qidac 6. PAF currently in sinus continue baseline meds except eliquis amiodaron 200mg daily 7. Positive occult blood GI input appreciated outpatient f/u in GI clinic Full Code DVT pptx, mechanical (if she can tolerate); cannot to pharmacologic due to acute bleed
[2020-07-29 19:58] LABS: Glucose, Whole Blood 139 mg/dL (60-115)
[2020-07-29] MEDS: Sennosides 8.6 MG TABLET 17.2 MG PO (21:28)
[2020-07-29] MEDS: Docusate Sodium 100 MG CAPSULE PO (21:28)
[2020-07-30 03:39] VITALS: BP 156/74; PULSE 73; RESP 18; TEMP 37; O2SAT 96
[2020-07-30] MEDS: Omeprazole 20 MG CAPSULE.DR PO (06:24)
[2020-07-30 07:18] VITALS: BP 189/84; PULSE 62; RESP 16; TEMP 36.7; O2SAT 96
[2020-07-30 07:22] LABS: Glucose, Whole Blood 118 mg/dL (60-115)
[2020-07-30] MEDS: Pregabalin 50 MG CAPSULE PO (07:38)
[2020-07-30] MEDS: Meclizine HCl 12.5 MG TABLET 25 MG PO (07:38)
[2020-07-30] MEDS: Sertraline HCL 100 MG TABLET PO (07:38)
[2020-07-30] MEDS: 0.9 % Sodium Chloride Flush 3 ML SYRINGE IVFLUSH ×2 (07:38→16:02)
[2020-07-30] MEDS: Ferrous Sulfate 324 MG TABLET.DR PO ×2 (07:38→17:17)
[2020-07-30] MEDS: Amiodarone HCL 200 MG TABLET PO (07:38)
[2020-07-30] MEDS: hydrALAZINE HCl 50 MG TABLET 100 MG PO ×2 (07:38→20:44)
[2020-07-30] MEDS: Memantine HCl 10 MG TABLET PO ×2 (07:39→20:45)
[2020-07-30] MEDS: Isosorbide Mononitrate 30 MG TAB.ER.24H PO (07:39)
[2020-07-30] MEDS: Cholecalciferol (Vitamin D3) 25 MCG TABLET PO (07:39)
[2020-07-30] MEDS: calcitrioL 0.25 MCG CAPSULE PO (07:52)
--- NOTE | 2020-07-30 08:13 | P.PNGS_ITS ---
Subjective Subjective Date of Service: 07/30/20 Interval history: says she feels better denies abdl pain tolerating diet some pain on right thigh but much improved Physical Exam Vital Signs: Vital Signs: Last Vital Signs Temp 98.1 F 07/30/20 07:18 Pulse 62 07/30/20 07:18 Resp 16 07/30/20 07:18 BP 189/84 H 07/30/20 07:18 Pulse Ox 96 07/30/20 07:18 Body Mass Index 32.3 Chemistry 07/27/20 07/28/20 07/28/20 11:07 05:14 15:03 Sodium 145 149 H 144 Potassium 4.2 4.0 4.2 Carbon Dioxide 27 29 24 BUN 41 H 47 H 46 H Creatinine 1.79 H 1.99 H 1.99 H Calcium 8.2 L 8.2 L 7.9 L 07/29/20 05:14 Sodium 145 Potassium 4.4 Carbon Dioxide 29 BUN 45 H Creatinine 1.85 H Calcium 8.2 L Hematology 07/27/20 07/28/20 07/29/20 11:07 05:14 05:14 WBC 7.1 7.2 7.6 Hgb 10.4 L 9.5 L 9.9 L Plt Count 120 L 108 L 122 L Const: Other: Eating breakfast, much more alert today General: comfortable and no acute distress Resp: Effort & Inspection: normal respiratory effort GI: Palpation (GI): Soft to palpation, not firm and nontender Extrem: Other: Right thigh incision open, clean , no induration, no bleeding, ecchymosis is fading, no cellulitis Progress Note: A&P Assessment and plan (1) Hematoma of right thigh: Problem details: POD #1 s/p incision and drainage of right thigh hematoma Status: Acute Assessment and Plan: Swelling has resolved Incision clean No cellulitis Hemoglobin stable Dressings changed - dry gauze applied (2) Gallstones: Problem details: Patient has no pain today She has elevated LFT so concern over choleystitis Status: Acute Assessment and Plan: Denies abdominal pain WBC normal No tenderness Tolerating diet No surgical intervention planned Discussed with daughter Fall Risk Details Current Medications: Current Medications Generic Name Dose Route Start Last Admin Trade Name Freq PRN Reason Stop Dose Admin Amiodarone HCl 200 mg 07/28/20 15:15 07/30/20 07:38 Amiodarone Hcl 200 Mg Tablet PO 200 mg DAILY [facility] Administration Calcitriol 0.25 mcg 07/25/20 09:00 07/30/20 07:52 Calcitriol 0.25 Mcg Capsule PO 0.25 mcg MoWeFr [facility] Administration Docusate Sodium 100 mg 07/25/20 21:00 07/29/20 21:28 Docusate Sodium 100 Mg Capsule PO 100 mg BEDTIME [facility] Administration Ferrous Sulfate 324 mg 07/24/20 08:30 07/30/20 07:38 Ferrous Sulfate 324 Mg Tablet. PO 324 mg BIDPC [facility] Administration Hydralazine HCl 100 mg 07/24/20 09:00 07/30/20 07:38 Hydralazine Hcl 50 Mg Tablet PO 100 mg BID [facility] Administration Insulin Human Lispro 0 unit 07/27/20 16:45 07/30/20 07:30 Insulin Lispro 100 Unit/Ml 3 Ml Vial SUBCUT Not Given QIDACHS [facility] Protocol Isosorbide Mononitrate 30 mg 07/24/20 09:00 07/30/20 07:39 Isosorbide Mononitrate 30 Mg Tab.Er.24h PO 30 mg DAILY [facility] Administration Protocol Meclizine HCl 25 mg 07/24/20 09:00 07/30/20 07:38 Meclizine Hcl 12.5 Mg Tablet PO 25 mg BID [facility] Administration Memantine 10 mg 07/24/20 09:00 07/30/20 07:39 Memantine Hcl 10 Mg Tablet PO 10 mg BID [facility] Administration Non-Formulary Medication 6 mg 07/24/20 09:00 Rivastigmine Tartrate PO BID [facility] Omeprazole 20 mg 07/27/20 06:30 07/30/20 06:24 Omeprazole 20 Mg Capsule. PO 20 mg DAILY@0630 [facility] Administration Oxycodone HCl 2.5 mg 07/29/20 17:05 Oxycodone Hcl Immed Release 5 Mg Tablet PO Q6H PRN Pain, Mild (Pain Scale 1-3) Pregabalin 50 mg 07/24/20 09:00 07/30/20 07:38 Pregabalin 50 Mg Capsule PO 50 mg TID [facility] Administration Senna 17.2 mg 07/25/20 21:00 07/29/20 21:28 Sennosides 8.6 Mg Tablet PO 17.2 mg BEDTIME [facility] Administration Sertraline HCl 100 mg 07/24/20 09:00 07/30/20 07:38 Sertraline Hcl 100 Mg Tablet PO 100 mg DAILY [facility] Administration Sodium Chloride 3 ml 07/24/20 08:00 07/30/20 07:38 0.9 % Sodium Chloride Flush 3 Ml Syringe IVFLUSH 3 ml QSHIFT [facility] Administration Tiotropium [place] 1 puff 07/24/20 12:31 07/30/20 07:05 Tiotropium [place] 18 Mcg Cap.W.Dev INHALE Not Given RDAILY [facility] Vitamin D 25 mcg 07/24/20 09:00 07/30/20 07:39 Cholecalciferol (Vitamin D3) 25 Mcg Tablet PO 25 mcg DAILY [facility] Administration Time Spent With Patient Time: Total time spent is greater than 50% in coordination of care (as documented) at patient's floor/unit and/or counseling patient: Time with patient: 15 - 24 minutes Procedures Date of Service Date of Service: 07/30/20
[2020-07-30 08:43] LABS: Hematocrit 33.4 % (37-47); Hemoglobin 9.9 g/dl (12.0-16.0); Mean Corpuscular HGB Conc 29.6 g/dl (31.0-35.0); Mean Corpuscular Hemoglobin 28.7 pg (27.0-33.0); Mean Corpuscular Volume 96.8 fL (80-98); Mean Platelet Volume 11.4 fL (9.4-12.3); Platelet Count 124 X10*3/uL (160-400); Red Blood Count 3.45 X10*6/uL (4.20-5.50); Red Cell Distribution Width 15.3 % (11.0-16.0); White Blood Count 8.7 X10*3/uL (4.8-10.8)
[2020-07-30 09:12] LABS: Anion Gap 11 (12-20); Blood Urea Nitrogen 42 mg/dL (9-16); Calcium 8.2 mg/dL (8.4-10.2); Carbon Dioxide 28 mmol/L (22-29); Chloride 110 mmol/L (96-108); Creatinine Clr Calc Pharmacy 26.7; Estimated Glomerular Filt Rate 33; Glucose Random 115 mg/dL (60-115); Potassium 4.5 mmol/L (3.3-5.1); Sodium 144 mmol/L (135-145)
--- NOTE | 2020-07-30 11:00 | MHC.CM.PN ---
per multi rounds no anticapted dc date at this time pt accepted at [facility] and kaur gallagher still following
[2020-07-30 11:01] VITALS: BP 133/62; PULSE 62; RESP 18; TEMP 37; O2SAT 95
[2020-07-30 11:42] LABS: Glucose, Whole Blood 143 mg/dL (60-115)
--- NOTE | 2020-07-30 12:32 | MHC.CM.PN ---
pt accepted at [facility] when ready for dc will need new covid
[2020-07-30 15:03] VITALS: BP 132/58; PULSE 53; RESP 20; TEMP 36.7; O2SAT 98
[2020-07-30 15:57] LABS: Glucose, Whole Blood 135 mg/dL (60-115)
--- NOTE | 2020-07-30 16:36 | P.PNIM_ITS ---
Subjective Subjective Date of Service: 07/30/20 Interval History: seen and examined this AM and afternoon again about the same Physical Exam Vital Signs: Vital Signs: Last Vital Signs Temp 98.0 F 07/30/20 15:03 Pulse 53 07/30/20 15:03 Resp 20 07/30/20 15:03 BP 132/58 L 07/30/20 15:03 Pulse Ox 98 07/30/20 15:03 Body Mass Index 32.3 Const: Other: General - no acute distress, appears comfortable Cardiovascular - regular rate and rhythm, S1-S2 Lungs - normal respiratory effort, clear to auscultation bilaterally, no wheezing Abdomen - soft, nontender, no rebound or guarding Extremities - R thigh in compression dressing Neuro - awake and alert, no focal deficits; oriented to place and some what to situtation Objective Data Current Medications Generic Name Dose Route Start Last Admin Trade Name Freq PRN Reason Stop Dose Admin Amiodarone HCl 200 mg 07/28/20 15:15 07/30/20 07:38 Amiodarone Hcl 200 Mg Tablet PO 200 mg DAILY [facility] Administration Calcitriol 0.25 mcg 07/25/20 09:00 07/30/20 07:52 Calcitriol 0.25 Mcg Capsule PO 0.25 mcg MoWeFr [facility] Administration Docusate Sodium 100 mg 07/25/20 21:00 07/29/20 21:28 Docusate Sodium 100 Mg Capsule PO 100 mg BEDTIME [facility] Administration Ferrous Sulfate 324 mg 07/24/20 08:30 07/30/20 07:38 Ferrous Sulfate 324 Mg Tablet. PO 324 mg BIDPC [facility] Administration Hydralazine HCl 100 mg 07/24/20 09:00 07/30/20 07:38 Hydralazine Hcl 50 Mg Tablet PO 100 mg BID [facility] Administration Insulin Human Lispro 0 unit 07/27/20 16:45 07/30/20 16:03 Insulin Lispro 100 Unit/Ml 3 Ml Vial SUBCUT Not Given QIDACHS [facility] Protocol Isosorbide Mononitrate 30 mg 07/24/20 09:00 07/30/20 07:39 Isosorbide Mononitrate 30 Mg Tab.Er.24h PO 30 mg DAILY [facility] Administration Protocol Meclizine HCl 25 mg 07/24/20 09:00 07/30/20 07:38 Meclizine Hcl 12.5 Mg Tablet PO 25 mg BID [facility] Administration Memantine 10 mg 07/24/20 09:00 07/30/20 07:39 Memantine Hcl 10 Mg Tablet PO 10 mg BID [facility] Administration Non-Formulary Medication 6 mg 07/24/20 09:00 Rivastigmine Tartrate PO BID [facility] Omeprazole 20 mg 07/27/20 06:30 07/30/20 06:24 Omeprazole 20 Mg Capsule.Dr PO 20 mg DAILY@0630 [facility] Administration Oxycodone HCl 2.5 mg 07/29/20 17:05 Oxycodone Hcl Immed Release 5 Mg Tablet PO Q6H PRN Pain, Mild (Pain Scale 1-3) Pregabalin 50 mg 07/24/20 09:00 07/30/20 16:02 Pregabalin 50 Mg Capsule PO Not Given TID [facility] Senna 17.2 mg 07/25/20 21:00 07/29/20 21:28 Sennosides 8.6 Mg Tablet PO 17.2 mg BEDTIME [facility] Administration Sertraline HCl 100 mg 07/24/20 09:00 07/30/20 07:38 Sertraline Hcl 100 Mg Tablet PO 100 mg DAILY [facility] Administration Sodium Chloride 3 ml 07/24/20 08:00 07/30/20 16:02 0.9 % Sodium Chloride Flush 3 Ml Syringe IVFLUSH 3 ml QSHIFT [facility] Administration Tiotropium [place] 1 puff 07/24/20 12:31 07/30/20 07:05 Tiotropium [place] 18 Mcg Cap.W.Dev INHALE Not Given RDAILY [facility] Vitamin D 25 mcg 07/24/20 09:00 07/30/20 07:39 Cholecalciferol (Vitamin D3) 25 Mcg Tablet PO 25 mcg DAILY [facility] Administration Labs CBC & Chem 7: 07/30/20 07:55 07/30/20 07:55 Microbiology Microbiology Results: Microbiology 07/27/20 15:12 Blood - Venous Blood Culture - Preliminary No growth after 48 hours. 07/27/20 15:13 Blood - Venous Blood Culture - Final Streptococcus viridans group Assessment and Plan (1) Hematoma: Status: Acute Assessment and Plan: This is a 79 yo F with a PMH of HTN, HLD, DM, A. Fib on Eliquis who presented after a mechanical fall and was diagnosed with acute blood loss anemia secondry to R medial thigh hematoma. 1. Acute Blood Loss Anemia, secondary to R thigh hematoma s/p 2 units PRBCs; s/p evacuation Tuesday Gen Surg on Board h/h remains stable 2. HyperNa resolved encourage oral hydration 3. Transaminitis down trending clinically no RUQ pain to suggest acute earle amio restarted 3. Thromcytopnia chornic monitor 4. 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 DM sliding scale poc qidac 6. PAF currently in sinus continue baseline meds except eliquis amiodaron 200mg daily 7. Positive occult blood GI input appreciated outpatient f/u in GI clinic 8. Weakness pt evval --- STR Full Code DVT pptx, mechanical (if she can tolerate); cannot to pharmacologic due to acute bleed
[2020-07-30 18:58] VITALS: BP 174/75; PULSE 68; RESP 20; TEMP 36; O2SAT 96
[2020-07-30 19:48] LABS: Glucose, Whole Blood 192 mg/dL (60-115)
[2020-07-30] MEDS: Sennosides 8.6 MG TABLET 17.2 MG PO (20:44)
[2020-07-30] MEDS: Docusate Sodium 100 MG CAPSULE PO (20:45)
[2020-07-30] MEDS: Insulin Lispro 100 UNIT/ML 3 ML VIAL SUBCUT (20:45)
[2020-07-30] MEDS: cefTRIAXone sodium 1 GM in 0.9 % Sodium Chloride 50 ML IV (22:58)
[2020-07-30 23:15] VITALS: BP 167/74; PULSE 64; RESP 18; TEMP 36.4; O2SAT 98
[2020-07-31] VITALS (10 sets, daily range): BP systolic 129–170; BP diastolic 59–78; PULSE 60–67; RESP 17–18; TEMP 36.3–37; O2SAT 95–99
[2020-07-31] MEDS: 0.9 % Sodium Chloride Flush 3 ML SYRINGE IVFLUSH ×4 (00:11→23:59)
[2020-07-31 05:04] LABS: Hematocrit 30.7 % (37-47); Hemoglobin 9.4 g/dl (12.0-16.0); Mean Corpuscular HGB Conc 30.6 g/dl (31.0-35.0); Mean Corpuscular Hemoglobin 29.3 pg (27.0-33.0); Mean Corpuscular Volume 95.6 fL (80-98); Mean Platelet Volume 12.6 fL (9.4-12.3); Platelet Count 122 X10*3/uL (160-400); Red Blood Count 3.21 X10*6/uL (4.20-5.50); White Blood Count 7.8 X10*3/uL (4.8-10.8)
[2020-07-31] MEDS: Omeprazole 20 MG CAPSULE.DR PO (05:13)
[2020-07-31 05:27] LABS: Anion Gap 10 (12-20); Blood Urea Nitrogen 42 mg/dL (9-16); Calcium 8.3 mg/dL (8.4-10.2); Carbon Dioxide 29 mmol/L (22-29); Chloride 109 mmol/L (96-108); Creatinine Clr Calc Pharmacy 29.6; Estimated Glomerular Filt Rate 37; Glucose Random 100 mg/dL (60-115); Potassium 4.2 mmol/L (3.3-5.1); Sodium 144 mmol/L (135-145)
[2020-07-31 08:20] LABS: Glucose, Whole Blood 101 mg/dL (60-115)
--- NOTE | 2020-07-31 08:27 | PM.PNGS ---
Subjective Subjective Date of Service: 07/31/20 Interval history: No events reported Patient says she feels comfortable Physical Exam Vital Signs: Vital Signs: Last Vital Signs Temp 98.0 F 07/31/20 07:22 Pulse 60 07/31/20 07:22 Resp 17 07/31/20 07:22 BP 170/78 H 07/31/20 03:10 Pulse Ox 98 07/31/20 07:22 Body Mass Index 32.3 Chemistry 07/28/20 07/29/20 07/30/20 15:03 05:14 07:55 Sodium 144 145 144 Potassium 4.2 4.4 4.5 Carbon Dioxide 24 29 28 BUN 46 H 45 H 42 H Creatinine 1.99 H 1.85 H 1.53 H Calcium 7.9 L 8.2 L 8.2 L 07/31/20 03:52 Sodium 144 Potassium 4.2 Carbon Dioxide 29 BUN 42 H Creatinine 1.38 Calcium 8.3 L Hematology 07/29/20 07/30/20 07/31/20 05:14 07:55 03:52 WBC 7.6 8.7 7.8 Hgb 9.9 L 9.9 L 9.4 L Plt Count 122 L 124 L 122 L Const: General: comfortable and no acute distress Resp: Effort & Inspection: normal respiratory effort GI: Palpation (GI): Soft to palpation and nontender Extrem: Other: Open wound right thigh from evacuation clean softer, no induration, no cellulitis, pus, no active bleeding Progress Note: A&P Assessment and plan (1) Hematoma of right thigh: Problem details: POD #1 s/p incision and drainage of right thigh hematoma Status: Acute Assessment and Plan: Open wound clean Residual induration Dressings changed - dry gauze applied Continue wound care (2) Gallstones: Problem details: Patient has no pain today She has elevated LFT so concern over choleystitis Status: Acute Assessment and Plan: No abdominal pain Tolerating diet Exam benign, without tenderness Fall Risk Details Current Medications: Current Medications Generic Name Dose Route Start Last Admin Trade Name Freq PRN Reason Stop Dose Admin Amiodarone HCl 200 mg 07/28/20 15:15 07/30/20 07:38 Amiodarone Hcl 200 Mg Tablet PO 200 mg DAILY [facility] Administration Calcitriol 0.25 mcg 07/25/20 09:00 07/30/20 07:52 Calcitriol 0.25 Mcg Capsule PO 0.25 mcg MoWeFr [facility] Administration Docusate Sodium 100 mg 07/25/20 21:00 07/30/20 20:45 Docusate Sodium 100 Mg Capsule PO 100 mg BEDTIME [facility] Administration Ferrous Sulfate 324 mg 07/24/20 08:30 07/30/20 17:17 Ferrous Sulfate 324 Mg Tablet. PO 324 mg BIDPC [facility] Administration Hydralazine HCl 100 mg 07/24/20 09:00 07/30/20 20:44 Hydralazine Hcl 50 Mg Tablet PO 100 mg BID [facility] Administration Ceftriaxone Sodium 1 gm/ 50 mls @ 100 mls/hr 07/30/20 23:00 07/31/20 00:14 Sodium Chloride IV Infused Q24H [facility] Infusion Insulin Human Lispro 0 unit 07/27/20 16:45 07/30/20 20:45 Insulin Lispro 100 Unit/Ml 3 Ml Vial SUBCUT 2 unit QIDACHS [facility] Administration Protocol Isosorbide Mononitrate 30 mg 07/24/20 09:00 07/30/20 07:39 Isosorbide Mononitrate 30 Mg Tab.Er.24h PO 30 mg DAILY [facility] Administration Protocol Memantine 10 mg 07/24/20 09:00 07/30/20 20:45 Memantine Hcl 10 Mg Tablet PO 10 mg BID [facility] Administration Non-Formulary Medication 6 mg 07/24/20 09:00 Rivastigmine Tartrate PO BID [facility] Omeprazole 20 mg 07/27/20 06:30 07/31/20 05:13 Omeprazole 20 Mg Capsule. PO 20 mg DAILY@0630 [facility] Administration Oxycodone HCl 2.5 mg 07/29/20 17:05 Oxycodone Hcl Immed Release 5 Mg Tablet PO Q6H PRN Pain, Mild (Pain Scale 1-3) Senna 17.2 mg 07/25/20 21:00 07/30/20 20:44 Sennosides 8.6 Mg Tablet PO 17.2 mg BEDTIME [facility] Administration Sertraline HCl 100 mg 07/24/20 09:00 07/30/20 07:38 Sertraline Hcl 100 Mg Tablet PO 100 mg DAILY [facility] Administration Sodium Chloride 3 ml 07/24/20 08:00 07/31/20 00:11 0.9 % Sodium Chloride Flush 3 Ml Syringe IVFLUSH 3 ml QSHIFT [facility] Administration Tiotropium [place] 1 puff 07/24/20 12:31 07/30/20 07:05 Tiotropium [place] 18 Mcg Cap.W.Dev INHALE Not Given RDAILY [facility] Vitamin D 25 mcg 07/24/20 09:00 07/30/20 07:39 Cholecalciferol (Vitamin D3) 25 Mcg Tablet PO 25 mcg DAILY [facility] Administration Time Spent With Patient Time: Total time spent is greater than 50% in coordination of care (as documented) at patient's floor/unit and/or counseling patient: Time with patient: 15 - 24 minutes Procedures Date of Service Date of Service: 07/31/20
[2020-07-31] MEDS: hydrALAZINE HCl 50 MG TABLET 100 MG PO ×2 (09:47→21:20)
[2020-07-31] MEDS: Isosorbide Mononitrate 30 MG TAB.ER.24H PO (09:48)
[2020-07-31] MEDS: Memantine HCl 10 MG TABLET PO ×2 (09:48→21:20)
[2020-07-31] MEDS: Cholecalciferol (Vitamin D3) 25 MCG TABLET PO (09:48)
[2020-07-31] MEDS: Sertraline HCL 100 MG TABLET PO (09:48)
[2020-07-31] MEDS: Amiodarone HCL 200 MG TABLET PO (09:48)
[2020-07-31] MEDS: Ferrous Sulfate 324 MG TABLET.DR PO ×2 (09:49→17:47)
[2020-07-31 11:37] LABS: Glucose, Whole Blood 141 mg/dL (60-115)
--- NOTE | 2020-07-31 11:55 | P.PNID_ITS ---
Subjective Subjective Date of Service: 08/01/20 Interval History: she has no complaints Objective Data Labs CBC & Chem 7: 07/31/20 03:52 07/31/20 03:52 Labs: Laboratory Results - last 24 hr 07/30/20 07/30/20 07/31/20 15:45 19:35 03:52 WBC 7.8 RBC 3.21 L Hgb 9.4 L Hct 30.7 L MCV 95.6 MCH 29.3 MCHC 30.6 L RDW 15.0 Plt Count 122 L MPV 12.6 H Absolute Nucleated RBC 0.000 Nucleated RBC % (auto) 0.0 Sodium Potassium Chloride Carbon Dioxide Anion Gap BUN Creatinine Estim Creat Clear Calc Estimated GFR POC Glucose 135 H 192 H Random Glucose Calcium 07/31/20 07/31/20 07/31/20 03:52 08:10 11:27 WBC RBC Hgb Hct MCV MCH MCHC RDW Plt Count MPV Absolute Nucleated RBC Nucleated RBC % (auto) Sodium 144 Potassium 4.2 Chloride 109 H Carbon Dioxide 29 Anion Gap 10 L BUN 42 H Creatinine 1.38 Estim Creat Clear Calc 29.6 Estimated GFR 37 POC Glucose 101 141 H Random Glucose 100 Calcium 8.3 L Microbiology Microbiology Results: Microbiology 07/27/20 15:12 Blood - Venous Blood Culture - Preliminary 07/27/20 15:13 Blood - Venous Blood Culture - Final Streptococcus viridans group Physical Exam Vital Signs: Vital Signs: Last Vital Signs Temp 97.4 F 07/31/20 11:51 Pulse 67 07/31/20 11:51 Resp 17 07/31/20 11:51 BP 129/59 L 07/31/20 11:51 Pulse Ox 96 07/31/20 11:51 Body Mass Index 32.3 Const: General: cooperative HENMT: Head: Yes normal to inspection Resp: Effort & Inspection: normal respiratory effort Cardio: Rate: regular rate Rhythm: regular rhythm Heart sounds: Murmur heart sound present (2/6 TYREE) systolic GI: Palpation (GI): Soft to palpation and nontender Skin: General skin exam: no rashes or lesions noted Assessment and Plan Assessment and plan (1) Bacteremia: Problem details: Possible endocarditis or contaminant 1/2 possible strep viridans Patient does have murmur Status: Acute Assessment and Plan: Echo evaluation now Possible 4 weeks Ceftriaxone 1g daily Time Spent With Patient Time: Total time spent is greater than 50% in coordination of care (as docu mented) at patient's floor/unit and/or counseling patient: Time with patient: 15 - 24 minutes
--- NOTE | 2020-07-31 12:51 | HO.PM.IMPN ---
Subjective Subjective Date of Service: 07/31/20 Interval History: seen and examined this AM and afternoon again feeling better and having less pain daily Physical Exam Vital Signs: Vital Signs: Last Vital Signs Temp 97.4 F 07/31/20 11:51 Pulse 67 07/31/20 11:51 Resp 17 07/31/20 11:51 BP 129/59 L 07/31/20 11:51 Pulse Ox 96 07/31/20 11:51 Body Mass Index 32.3 Const: Other: General - no acute distress, appears comfortable Cardiovascular - regular rate and rhythm, S1-S2 Lungs - normal respiratory effort, clear to auscultation bilaterally, no wheezing Abdomen - soft, nontender, no rebound or guarding Extremities - R thigh in compression dressing Neuro - awake and alert, no focal deficits; oriented to place and some what to situtation Objective Data Current Medications Generic Name Dose Route Start Last Admin Trade Name Freq PRN Reason Stop Dose Admin Amiodarone HCl 200 mg 07/28/20 15:15 07/31/20 09:48 Amiodarone Hcl 200 Mg Tablet PO 200 mg DAILY [facility] Administration Calcitriol 0.25 mcg 07/25/20 09:00 07/30/20 07:52 Calcitriol 0.25 Mcg Capsule PO 0.25 mcg MoWeFr [facility] Administration Docusate Sodium 100 mg 07/25/20 21:00 07/30/20 20:45 Docusate Sodium 100 Mg Capsule PO 100 mg BEDTIME [facility] Administration Ferrous Sulfate 324 mg 07/24/20 08:30 07/31/20 09:49 Ferrous Sulfate 324 Mg Tablet. PO 324 mg BIDPC [facility] Administration Hydralazine HCl 100 mg 07/24/20 09:00 07/31/20 09:47 Hydralazine Hcl 50 Mg Tablet PO 100 mg BID [facility] Administration Ceftriaxone Sodium 1 gm/ 50 mls @ 100 mls/hr 07/30/20 23:00 07/31/20 00:14 Sodium Chloride IV Infused Q24H [facility] Infusion Insulin Human Lispro 0 unit 07/27/20 16:45 07/31/20 12:03 Insulin Lispro 100 Unit/Ml 3 Ml Vial SUBCUT Not Given QIDACHS [facility] Protocol Isosorbide Mononitrate 30 mg 07/24/20 09:00 07/31/20 09:48 Isosorbide Mononitrate 30 Mg Tab.Er.24h PO 30 mg DAILY [facility] Administration Protocol Memantine 10 mg 07/24/20 09:00 07/31/20 09:48 Memantine Hcl 10 Mg Tablet PO 10 mg BID [facility] Administration Non-Formulary Medication 6 mg 07/24/20 09:00 Rivastigmine Tartrate PO BID [facility] Omeprazole 20 mg 07/27/20 06:30 07/31/20 05:13 Omeprazole 20 Mg Capsule.Dr PO 20 mg DAILY@0630 [facility] Administration Oxycodone HCl 2.5 mg 07/29/20 17:05 Oxycodone Hcl Immed Release 5 Mg Tablet PO Q6H PRN Pain, Mild (Pain Scale 1-3) Senna 17.2 mg 07/25/20 21:00 07/30/20 20:44 Sennosides 8.6 Mg Tablet PO 17.2 mg BEDTIME [facility] Administration Sertraline HCl 100 mg 07/24/20 09:00 07/31/20 09:48 Sertraline Hcl 100 Mg Tablet PO 100 mg DAILY [facility] Administration Sodium Chloride 3 ml 07/24/20 08:00 07/31/20 09:47 0.9 % Sodium Chloride Flush 3 Ml Syringe IVFLUSH 3 ml QSHIFT [facility] Administration Tiotropium [place] 1 puff 07/24/20 12:31 07/31/20 08:40 Tiotropium [place] 18 Mcg Cap.W.Dev INHALE 1 puff RDAILY [facility] Administration Vitamin D 25 mcg 07/24/20 09:00 07/31/20 09:48 Cholecalciferol (Vitamin D3) 25 Mcg Tablet PO 25 mcg DAILY [facility] Administration Labs CBC & Chem 7: 07/31/20 03:52 07/31/20 03:52 Microbiology Microbiology Results: Microbiology 07/27/20 15:12 Blood - Venous Blood Culture - Preliminary 07/27/20 15:13 Blood - Venous Blood Culture - Final Streptococcus viridans group Assessment and Plan (1) Hematoma: Status: Acute Assessment and Plan: This is a 79 yo F with a PMH of HTN, HLD, DM, A. Fib on Eliquis who presented after a mechanical fall and was diagnosed with acute blood loss anemia secondry to R medial thigh hematoma. 1. ? bacteremia 1/2 bottles with strep viridans possible contaminant echo this admisison with no veg. reported repeat cx sent 07/30/2020 rocephin for now 2. Acute Blood Loss Anemia, secondary to R thigh hematoma s/p 2 units PRBCs; s/p evacuation Tuesday Gen Surg on Board h/h remains stable 3. HyperNa resolved encourage oral hydration 4. Transaminitis down trending clinically no RUQ pain to suggest acute earle amio restarted 5. Thromcytopnia chornic monitor 6. 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 DM sliding scale poc qidac 8. PAF currently in sinus continue baseline meds except eliquis amiodaron 200mg daily 8. Positive occult blood GI input appreciated outpatient f/u in GI clinic 9. Weakness pt evval --- STR Full Code DVT pptx, mechanical (if she can tolerate); cannot to pharmacologic due to acute bleed
[2020-07-31 16:14] LABS: Glucose, Whole Blood 157 mg/dL (60-115)
[2020-07-31] MEDS: Insulin Lispro 100 UNIT/ML 3 ML VIAL SUBCUT (17:47)
[2020-07-31 20:14] LABS: Glucose, Whole Blood 136 mg/dL (60-115)
[2020-07-31] MEDS: Docusate Sodium 100 MG CAPSULE PO (21:20)
[2020-07-31] MEDS: Sennosides 8.6 MG TABLET 17.2 MG PO (21:20)
[2020-07-31] MEDS: cefTRIAXone sodium 1 GM in 0.9 % Sodium Chloride 50 ML IV (22:23)
[2020-08-01] VITALS (9 sets, daily range): BP systolic 122–204; BP diastolic 59–86; PULSE 54–65; RESP 13–18; TEMP 36.1–36.9; O2SAT 95–99
[2020-08-01] MEDS: Omeprazole 20 MG CAPSULE.DR PO (05:48)
--- NOTE | 2020-08-01 06:00 | MHC.PIE ---
P.REDDENED EYES I.EYELIDS NOTED TO BE REDDENED BILAT,SCLERA REDDENED TO RIGHT EYE.PT STATES THEY ITCH AND BURN . NOTIFIED.NEW ORDER GIVEN FOR ARTIFICIAL TEARS Q 4HRS PRN.PT UPDATED. E.CONT TO MONITOR.
[2020-08-01] MEDS: oxyCODONE HCl Immed Release 5 MG TABLET 2.5 MG PO ×3 (07:47→21:15)
[2020-08-01] MEDS: 0.9 % Sodium Chloride Flush 3 ML SYRINGE IVFLUSH ×2 (07:47→15:28)
[2020-08-01] MEDS: Sertraline HCL 100 MG TABLET PO (07:48)
[2020-08-01] MEDS: Memantine HCl 10 MG TABLET PO ×2 (07:48→21:07)
[2020-08-01] MEDS: Cholecalciferol (Vitamin D3) 25 MCG TABLET PO (07:48)
[2020-08-01] MEDS: Amiodarone HCL 200 MG TABLET PO (07:48)
[2020-08-01] MEDS: hydrALAZINE HCl 50 MG TABLET 100 MG PO ×2 (07:48→21:08)
[2020-08-01] MEDS: Ferrous Sulfate 324 MG TABLET.DR PO ×2 (07:48→17:10)
[2020-08-01] MEDS: Isosorbide Mononitrate 30 MG TAB.ER.24H PO (07:48)
[2020-08-01] MEDS: calcitrioL 0.25 MCG CAPSULE PO (07:52)
[2020-08-01 08:00] LABS: Glucose, Whole Blood 83 mg/dL (60-115)
[2020-08-01 12:06] LABS: Glucose, Whole Blood 126 mg/dL (60-115)
--- NOTE | 2020-08-01 12:29 | P.PNIM_ITS ---
Subjective Subjective Date of Service: 08/01/20 Interval History: seen this AM much more alert would like to go home over rehab pain in leg better Physical Exam Vital Signs: Vital Signs: Last Vital Signs Temp 97.8 F 08/01/20 08:00 Pulse 59 08/01/20 08:00 Resp 16 08/01/20 08:00 BP 122/68 08/01/20 08:00 Pulse Ox 99 08/01/20 08:00 Body Mass Index 32.3 Const: Other: General - no acute distress, appears comfortable Cardiovascular - regular rate and rhythm, S1-S2 Lungs - normal respiratory effort, clear to auscultation bilaterally, no wheezing Abdomen - soft, nontender, no rebound or guarding Extremities -R thigh dressing, ecchymosis presents, slight induration Neuro - awake and alert, no focal deficits; Objective Data Current Medications Generic Name Dose Route Start Last Admin Trade Name Freq PRN Reason Stop Dose Admin Amiodarone HCl 200 mg 07/28/20 15:15 08/01/20 07:48 Amiodarone Hcl 200 Mg Tablet PO 200 mg DAILY [facility] Administration Artificial Tears 1 drop 08/01/20 06:23 Artificial Tears 15 Ml Drops EYE-BOTH Q4H PRN Dry eyes Calcitriol 0.25 mcg 07/25/20 09:00 08/01/20 07:52 Calcitriol 0.25 Mcg Capsule PO 0.25 mcg MoWeFr [facility] Administration Docusate Sodium 100 mg 07/25/20 21:00 07/31/20 21:20 Docusate Sodium 100 Mg Capsule PO 100 mg BEDTIME [facility] Administration Ferrous Sulfate 324 mg 07/24/20 08:30 08/01/20 07:48 Ferrous Sulfate 324 Mg Tablet. PO 324 mg BIDPC [facility] Administration Hydralazine HCl 100 mg 07/24/20 09:00 08/01/20 07:48 Hydralazine Hcl 50 Mg Tablet PO 100 mg BID [facility] Administration Ceftriaxone Sodium 1 gm/ 50 mls @ 100 mls/hr 07/30/20 23:00 07/31/20 23:38 Sodium Chloride IV Infused Q24H [facility]ER Infusion Insulin Human Lispro 0 unit 07/27/20 16:45 08/01/20 08:02 Insulin Lispro 100 Unit/Ml 3 Ml Vial SUBCUT Not Given QIDACHS [facility] Protocol Isosorbide Mononitrate 30 mg 07/24/20 09:00 08/01/20 07:48 Isosorbide Mononitrate 30 Mg Tab.Er.24h PO 30 mg DAILY [facility] Administration Protocol Memantine 10 mg 07/24/20 09:00 08/01/20 07:48 Memantine Hcl 10 Mg Tablet PO 10 mg BID [facility] Administration Non-Formulary Medication 6 mg 07/24/20 09:00 Rivastigmine Tartrate PO BID [facility] Omeprazole 20 mg 07/27/20 06:30 08/01/20 05:48 Omeprazole 20 Mg Capsule.Dr PO 20 mg DAILY@0630 [facility] Administration Oxycodone HCl 2.5 mg 07/29/20 17:05 08/01/20 07:47 Oxycodone Hcl Immed Release 5 Mg Tablet PO 2.5 mg Q6H PRN Administration Pain, Mild (Pain Scale 1-3) Senna 17.2 mg 07/25/20 21:00 07/31/20 21:20 Sennosides 8.6 Mg Tablet PO 17.2 mg BEDTIME [facility] Administration Sertraline HCl 100 mg 07/24/20 09:00 08/01/20 07:48 Sertraline Hcl 100 Mg Tablet PO 100 mg DAILY [facility] Administration Sodium Chloride 3 ml 07/24/20 08:00 08/01/20 07:47 0.9 % Sodium Chloride Flush 3 Ml Syringe IVFLUSH 3 ml QSHIFT [facility] Administration Tiotropium [place] 1 puff 07/24/20 12:31 08/01/20 12:23 Tiotropium [place] 18 Mcg Cap.W.Dev INHALE Not Given RDAILY [facility] Vitamin D 25 mcg 07/24/20 09:00 08/01/20 07:48 Cholecalciferol (Vitamin D3) 25 Mcg Tablet PO 25 mcg DAILY [facility] Administration Labs CBC & Chem 7: 07/31/20 03:52 07/31/20 03:52 Microbiology Microbiology Results: Microbiology 07/27/20 15:12 Blood - Venous Blood Culture - Preliminary Gram positive cocci 07/27/20 15:13 Blood - Venous Blood Culture - Preliminary Streptococcus viridans group 07/30/20 22:48 Blood - Venous Blood Culture - Preliminary No growth after 24 hours. 07/30/20 22:55 Blood - Venous Blood Culture - Preliminary No growth after 24 hours. Assessment and Plan (1) Hematoma: Status: Acute Assessment and Plan: This is a 79 yo F with a PMH of HTN, HLD, DM, A. Fib on Eliquis who presented after a mechanical fall and was diagnosed with acute blood loss anemia secondry to R medial thigh hematoma. 1. ? bacteremia 1/2 bottles with strep viridans, possible contaminant echo this admisison with no veg. reported repeat cx sent 07/30/2020 - negative @ 24 hours will need to wait for final cx to determine need of antibiotics rocephin for now ID on board -- to determine if IV 4 weeks antibiotics will be needed 2. Acute Blood Loss Anemia, secondary to R thigh hematoma s/p 2 units PRBCs; s/p evacuation Gen Surg on Board h/h remains stable 3. HyperNa resolved encourage oral hydration 4. Transaminitis down trending clinically no RUQ pain to suggest acute earle amio restarted 5. Thromcytopnia improving 6. LINDA on CKD stage 3/4 Resolved SCr at baseline 7. DM sliding scale poc qidac 8. PAF currently in sinus continue baseline meds except eliquis amiodaron 200mg daily 8. Positive occult blood GI input appreciated outpatient f/u in GI clinic 9. Weakness pt evval --- STR Full Code DVT pptx, mechanical (if she can tolerate); cannot to pharmacologic due to acute bleed dispo: likely will need STR -- pending decision re: emt intermediate IV antibiotics;
--- NOTE | 2020-08-01 14:24 | MHC.CM.PN ---
NEVAEH INFORMED PT MAY BE CLEARED TO DC TOMORROW. NEVAEH CONTACTED PTS DAUGHTER/HCP ANABELL ([phone]) AND INFORMED HER OF STR/AR BED OFFERS. SHE REPORTS [facility] IS THE PT AND FAMILY'S FIRST CHOICE. NEVAEH CONFIRMED THEY WILL HAVE A BED FOR THE PT TOMORROW. PATIENTS MEDICARE RIGHTS WERE REVIEWED AND A COPY WILL BE MAILED TO ANABELL. ANABELL IS AWARE THE PT WILL LIKELY DC TO [facility] TOMORROW VIA BLS. NEVAEH WILL CONTACT HER TO CONFIRM DC TIME ONCE KNOWN.
[2020-08-01 16:59] LABS: Glucose, Whole Blood 119 mg/dL (60-115)
[2020-08-01 19:41] LABS: Glucose, Whole Blood 158 mg/dL (60-115)
[2020-08-01] MEDS: Docusate Sodium 100 MG CAPSULE PO (21:07)
[2020-08-01] MEDS: Insulin Lispro 100 UNIT/ML 3 ML VIAL SUBCUT (21:07)
[2020-08-01] MEDS: Sennosides 8.6 MG TABLET 17.2 MG PO (21:07)
[2020-08-02] VITALS (10 sets, daily range): BP systolic 150–192; BP diastolic 66–86; PULSE 57–81; RESP 18–20; TEMP 36.2–37.2; O2SAT 94–98
[2020-08-02] MEDS: cefTRIAXone sodium 1 GM in 0.9 % Sodium Chloride 50 ML IV ×2 (00:03→23:59)
[2020-08-02] MEDS: 0.9 % Sodium Chloride Flush 3 ML SYRINGE IVFLUSH ×4 (00:03→20:16)
[2020-08-02] MEDS: Omeprazole 20 MG CAPSULE.DR PO (05:59)
--- NOTE | 2020-08-02 07:23 | PC.NURSE ---
p: 2100 bp elevated 170/64, hr 61, medicated with scheduled bedtime p.o. hydralazine i: Dr. Maurer made aware of elevated bp e: no new orders at this time
[2020-08-02 07:38] LABS: Glucose, Whole Blood 80 mg/dL (60-115)
[2020-08-02] MEDS: hydrALAZINE HCl 50 MG TABLET 100 MG PO ×2 (07:49→20:15)
[2020-08-02] MEDS: Amiodarone HCL 200 MG TABLET PO (07:50)
[2020-08-02] MEDS: Ferrous Sulfate 324 MG TABLET.DR PO ×2 (07:51→17:30)
[2020-08-02] MEDS: Sertraline HCL 100 MG TABLET PO (07:51)
[2020-08-02] MEDS: Memantine HCl 10 MG TABLET PO ×2 (07:51→20:15)
[2020-08-02] MEDS: Isosorbide Mononitrate 30 MG TAB.ER.24H PO (07:51)
[2020-08-02] MEDS: Cholecalciferol (Vitamin D3) 25 MCG TABLET PO (07:51)
[2020-08-02 11:18] LABS: Glucose, Whole Blood 106 mg/dL (60-115)
--- NOTE | 2020-08-02 11:57 | HO.PM.IMPN ---
Subjective Subjective Date of Service: 08/02/20 Interval History: seen this AM no new complaints leg pain improving slowly ROS General - no fevers or chills Cardiovascular - no chest pain Respiratory - no shortness of breath or cough Abdominal- no abdominal pain, nausea, vomiting, diarrhea Physical Exam Vital Signs: Vital Signs: Last Vital Signs Temp 98.1 F 08/02/20 11:29 Pulse 62 08/02/20 11:29 Resp 20 08/02/20 11:29 BP 150/71 H 08/02/20 11:29 Pulse Ox 95 08/02/20 11:29 Body Mass Index 32.3 Const: Other: General - no acute distress, appears comfortable Cardiovascular - regular rate and rhythm, S1-S2 Lungs - normal respiratory effort, clear to auscultation bilaterally, no wheezing Abdomen - soft, nontender, no rebound or guarding Extremities -R thigh dressing, ecchymosis presents, slight induration Neuro - awake and alert, no focal deficits; Objective Data Current Medications Generic Name Dose Route Start Last Admin Trade Name Freq PRN Reason Stop Dose Admin Amiodarone HCl 200 mg 07/28/20 15:15 08/02/20 07:50 Amiodarone Hcl 200 Mg Tablet PO 200 mg DAILY [facility] Administration Artificial Tears 1 drop 08/01/20 06:23 Artificial Tears 15 Ml Drops EYE-BOTH Q4H PRN Dry eyes Calcitriol 0.25 mcg 07/25/20 09:00 08/01/20 07:52 Calcitriol 0.25 Mcg Capsule PO 0.25 mcg MoWeFr [facility] Administration Docusate Sodium 100 mg 07/25/20 21:00 08/01/20 21:07 Docusate Sodium 100 Mg Capsule PO 100 mg BEDTIME [facility] Administration Ferrous Sulfate 324 mg 07/24/20 08:30 08/02/20 07:51 Ferrous Sulfate 324 Mg Tablet.Dr PO 324 mg BIDPC [facility] Administration Hydralazine HCl 100 mg 07/24/20 09:00 08/02/20 07:49 Hydralazine Hcl 50 Mg Tablet PO 100 mg BID [facility] Administration Ceftriaxone Sodium 1 gm/ 50 mls @ 100 mls/hr 07/30/20 23:00 08/02/20 00:33 Sodium Chloride IV Infused Q24H [facility] Infusion Insulin Human Lispro 0 unit 07/27/20 16:45 08/02/20 11:27 Insulin Lispro 100 Unit/Ml 3 Ml Vial SUBCUT Not Given QIDACHS [facility] Protocol Isosorbide Mononitrate 30 mg 07/24/20 09:00 08/02/20 07:51 Isosorbide Mononitrate 30 Mg Tab.Er.24h PO 30 mg DAILY [facility] Administration Protocol Memantine 10 mg 07/24/20 09:00 08/02/20 07:51 Memantine Hcl 10 Mg Tablet PO 10 mg BID [facility] Administration Non-Formulary Medication 6 mg 07/24/20 09:00 Rivastigmine Tartrate PO BID [facility] Omeprazole 20 mg 07/27/20 06:30 08/02/20 05:59 Omeprazole 20 Mg Capsule.Dr PO 20 mg DAILY@0630 [facility] Administration Oxycodone HCl 2.5 mg 07/29/20 17:05 08/01/20 21:15 Oxycodone Hcl Immed Release 5 Mg Tablet PO 2.5 mg Q6H PRN Administration Pain, Mild (Pain Scale 1-3) Senna 17.2 mg 07/25/20 21:00 08/01/20 21:07 Sennosides 8.6 Mg Tablet PO 17.2 mg BEDTIME [facility] Administration Sertraline HCl 100 mg 07/24/20 09:00 08/02/20 07:51 Sertraline Hcl 100 Mg Tablet PO 100 mg DAILY [facility] Administration Sodium Chloride 3 ml 07/24/20 08:00 08/02/20 07:49 0.9 % Sodium Chloride Flush 3 Ml Syringe IVFLUSH 3 ml QSHIFT [facility] Administration Tiotropium [place] 1 puff 07/24/20 12:31 08/02/20 07:[address] [place] 18 Mcg Cap.W.Dev INHALE Not Given RDAILY [facility] Vitamin D 25 mcg 07/24/20 09:00 08/02/20 07:51 Cholecalciferol (Vitamin D3) 25 Mcg Tablet PO 25 mcg DAILY [facility] Administration Labs CBC & Chem 7: 07/31/20 03:52 07/31/20 03:52 Microbiology Microbiology Results: Microbiology 07/27/20 15:13 Blood - Venous Blood Culture - Preliminary Streptococcus viridans group 07/30/20 22:48 Blood - Venous Blood Culture - Preliminary No growth after 48 hours. 07/30/20 22:55 Blood - Venous Blood Culture - Preliminary No growth after 48 hours. 07/27/20 15:12 Blood - Venous Blood Culture - Preliminary Gram positive cocci Assessment and Plan (1) Hematoma: Status: Acute Assessment and Plan: This is a 79 yo F with a PMH of HTN, HLD, DM, A. Fib on Eliquis who presented after a mechanical fall and was diagnosed with acute blood loss anemia secondry to R medial thigh hematoma. 1. Bacteremia 1/2 bottles with strep viridans from original cultures, now second also positive with Strep Mitis/Oralis echo this admission with no veg. reported Repeat cx negative @ 48 hours continue IV ceftriaxone, ? duration -- TBD pending repeat ID eval 2. Acute Blood Loss Anemia, secondary to R thigh hematoma s/p 2 units PRBCs; s/p evacuation h/h stable 3. HyperNa resolved encourage oral hydration 4. Transaminitis down trending clinically no RUQ pain to suggest acute earle amio restarted 5. Thromcytopnia improving 6. LINDA on CKD stage 3/4 Resolved SCr at baseline 7. DM sliding scale poc qidac 8. PAF currently in sinus continue baseline meds except eliquis -- restart timing to be determined amiodaron 200mg daily 8. Positive occult blood GI input appreciated outpatient f/u in GI clinic 9. Weakness pt eval --- STR Full Code DVT pptx, mechanical (if she can tolerate); cannot to pharmacologic due to acute bleed
[2020-08-02 16:30] LABS: Glucose, Whole Blood 102 mg/dL (60-115)
[2020-08-02 20:16] LABS: Glucose, Whole Blood 132 mg/dL (60-115)
--- NOTE | 2020-08-02 22:36 | PM.IDPN ---
Subjective Subjective Date of Service: 08/21/20 Interval History: she has no complaints Objective Data Labs CBC & Chem 7: 08/04/20 05:53 08/04/20 05:53 Labs: Laboratory Results - last 24 hr 08/02/20 08/02/20 08/02/20 07:13 10:56 16:27 POC Glucose 80 106 102 08/02/20 19:40 POC Glucose 132 H Microbiology Microbiology Results: Microbiology 07/27/20 15:12 Blood - Venous Blood Culture - Final Streptococcus mitis/oralis 07/27/20 15:13 Blood - Venous Blood Culture - Preliminary Streptococcus viridans group 07/30/20 22:48 Blood - Venous Blood Culture - Preliminary No growth after 48 hours. 07/30/20 22:55 Blood - Venous Blood Culture - Preliminary No growth after 48 hours. Physical Exam Vital Signs: Vital Signs: Last Vital Signs Temp 97.8 F 08/02/20 20:00 Pulse 77 08/02/20 20:15 Resp 20 08/02/20 20:00 BP 172/75 H 08/02/20 20:15 Pulse Ox 95 08/02/20 20:00 Body Mass Index 32.3 Const: General: cooperative HENMT: Mouth: oropharynx normal Cardio: Rate: regular rate Rhythm: regular rhythm GI: Palpation (GI): Soft to palpation and nontender Skin: General skin exam: no rashes or lesions noted Assessment and Plan Assessment and plan (1) Bacteremia: Problem details: Possible endocarditis or contaminant strep viridans/strep mitus Status: Acute Assessment and Plan: 6 week Ceftriaxone Time Spent With Patient Time: Total time spent is greater than 50% in coordination of care (as documented) at patient's floor/unit and/or counseling patient: Time with patient: 15 - 24 minutes
[2020-08-03] VITALS (10 sets, daily range): BP systolic 127–188; BP diastolic 64–82; PULSE 61–82; RESP 18–20; TEMP 36.2–37.9; O2SAT 92–99
[2020-08-03] MEDS: Omeprazole 20 MG CAPSULE.DR PO (05:52)
[2020-08-03 07:15] LABS: Glucose, Whole Blood 91 mg/dL (60-115)
[2020-08-03] MEDS: Ferrous Sulfate 324 MG TABLET.DR PO ×2 (08:06→16:58)
[2020-08-03] MEDS: 0.9 % Sodium Chloride Flush 3 ML SYRINGE IVFLUSH ×2 (08:06→16:58)
[2020-08-03] MEDS: Memantine HCl 10 MG TABLET PO ×2 (08:09→20:34)
[2020-08-03] MEDS: hydrALAZINE HCl 50 MG TABLET 100 MG PO ×2 (08:09→20:32)
[2020-08-03] MEDS: Amiodarone HCL 200 MG TABLET PO (08:09)
[2020-08-03] MEDS: Isosorbide Mononitrate 30 MG TAB.ER.24H PO (08:09)
[2020-08-03] MEDS: Sertraline HCL 100 MG TABLET PO (08:10)
[2020-08-03] MEDS: Cholecalciferol (Vitamin D3) 25 MCG TABLET PO (08:10)
[2020-08-03 09:00] LABS: Hemoglobin 9.8 g/dl (12.0-16.0); Mean Corpuscular HGB Conc 31.6 g/dl (31.0-35.0); Mean Corpuscular Hemoglobin 29.3 pg (27.0-33.0); Mean Corpuscular Volume 92.8 fL (80-98); Mean Platelet Volume 11.2 fL (9.4-12.3); Platelet Count 161 X10*3/uL (160-400); Red Blood Count 3.34 X10*6/uL (4.20-5.50); Red Cell Distribution Width 14.6 % (11.0-16.0); White Blood Count 9.1 X10*3/uL (4.8-10.8)
[2020-08-03 09:33] LABS: Anion Gap 13 (12-20); Blood Urea Nitrogen 20 mg/dL (9-16); Calcium 8.2 mg/dL (8.4-10.2); Carbon Dioxide 23 mmol/L (22-29); Chloride 106 mmol/L (96-108); Creatinine Clr Calc Pharmacy 35.5; Estimated Glomerular Filt Rate 46; Glucose Random 88 mg/dL (60-115); Potassium 4.1 mmol/L (3.3-5.1); Sodium 138 mmol/L (135-145)
[2020-08-03 11:07] LABS: Glucose, Whole Blood 127 mg/dL (60-115)
--- NOTE | 2020-08-03 11:16 | HO.PM.IMPN ---
Subjective Subjective Date of Service: 08/03/20 Interval History: seen this AM no new complaints leg pain stable tells me she is having diarrhea although per RN report none this AM and none reported over night ROS General - no fevers or chills Cardiovascular - no chest pain Respiratory - no shortness of breath or cough Abdominal- no abdominal pain, nausea, vomiting, diarrhea Physical Exam Vital Signs: Vital Signs: Last Vital Signs Temp 98.7 F 08/03/20 07:19 Pulse 72 08/03/20 08:09 Resp 18 08/03/20 07:19 BP 159/76 H 08/03/20 08:09 Pulse Ox 95 08/03/20 07:19 Body Mass Index 32.3 Const: Other: General - no acute distress, appears comfortable Cardiovascular - regular rate and rhythm, S1-S2 Lungs - normal respiratory effort, clear to auscultation bilaterally, no wheezing Abdomen - soft, nontender, no rebound or guarding Extremities -R thigh dressing, ecchymosis presents, slight induration Neuro - awake and alert, no focal deficits; Objective Data Current Medications Generic Name Dose Route Start Last Admin Trade Name Freq PRN Reason Stop Dose Admin Amiodarone HCl 200 mg 07/28/20 15:15 08/03/20 08:09 Amiodarone Hcl 200 Mg Tablet PO 200 mg DAILY [facility] Administration Artificial Tears 1 drop 08/01/20 06:23 Artificial Tears 15 Ml Drops EYE-BOTH Q4H PRN Dry eyes Calcitriol 0.25 mcg 07/25/20 09:00 08/01/20 07:52 Calcitriol 0.25 Mcg Capsule PO 0.25 mcg MoWeFr [facility] Administration Docusate Sodium 100 mg 07/25/20 21:00 08/02/20 20:05 Docusate Sodium 100 Mg Capsule PO Not Given BEDTIME [facility] Ferrous Sulfate 324 mg 07/24/20 08:30 08/03/20 08:06 Ferrous Sulfate 324 Mg Tablet. PO 324 mg BIDPC [facility] Administration Hydralazine HCl 100 mg 07/24/20 09:00 08/03/20 08:09 Hydralazine Hcl 50 Mg Tablet PO 100 mg BID [facility] Administration Ceftriaxone Sodium 1 gm/ 50 mls @ 100 mls/hr 07/30/20 23:00 08/03/20 00:52 Sodium Chloride IV Infused Q24H [facility] Infusion Insulin Human Lispro 0 unit 07/27/20 16:45 08/03/20 11:06 Insulin Lispro 100 Unit/Ml 3 Ml Vial SUBCUT Not Given QIDACHS [facility] Protocol Isosorbide Mononitrate 30 mg 07/24/20 09:00 08/03/20 08:09 Isosorbide Mononitrate 30 Mg Tab.Er.24h PO 30 mg DAILY [facility] Administration Protocol Memantine 10 mg 07/24/20 09:00 08/03/20 08:09 Memantine Hcl 10 Mg Tablet PO 10 mg BID [facility] Administration Non-Formulary Medication 6 mg 07/24/20 09:00 Rivastigmine Tartrate PO BID [facility] Omeprazole 20 mg 07/27/20 06:30 08/03/20 05:52 Omeprazole 20 Mg Capsule.Dr PO 20 mg DAILY@0630 [facility] Administration Oxycodone HCl 2.5 mg 07/29/20 17:05 08/01/20 21:15 Oxycodone Hcl Immed Release 5 Mg Tablet PO 2.5 mg Q6H PRN Administration Pain, Mild (Pain Scale 1-3) Senna 17.2 mg 07/25/20 21:00 08/02/20 20:06 Sennosides 8.6 Mg Tablet PO Not Given BEDTIME [facility] Sertraline HCl 100 mg 07/24/20 09:00 08/03/20 08:10 Sertraline Hcl 100 Mg Tablet PO 100 mg DAILY [facility] Administration Sodium Chloride 3 ml 07/24/20 08:00 08/03/20 08:06 0.9 % Sodium Chloride Flush 3 Ml Syringe IVFLUSH 3 ml QSHIFT [facility] Administration Tiotropium [place] 1 puff 07/24/20 12:31 08/03/20 07:32 Tiotropium [place] 18 Mcg Cap.W.Dev INHALE 1 puff RDAILY [facility] Administration Vitamin D 25 mcg 07/24/20 09:00 08/03/20 08:10 Cholecalciferol (Vitamin D3) 25 Mcg Tablet PO 25 mcg DAILY [facility] Administration Labs CBC & Chem 7: 08/03/20 08:38 08/03/20 08:38 Microbiology Microbiology Results: Microbiology 07/27/20 15:13 Blood - Venous Blood Culture - Preliminary Streptococcus viridans group 07/27/20 15:12 Blood - Venous Blood Culture - Final Streptococcus mitis/oralis 07/30/20 22:48 Blood - Venous Blood Culture - Preliminary No growth after 48 hours. 07/30/20 22:55 Blood - Venous Blood Culture - Preliminary No growth after 48 hours. Assessment and Plan (1) Hematoma: Status: Acute Assessment and Plan: This is a 79 yo F with a PMH of HTN, HLD, DM, A. Fib on Eliquis who presented after a mechanical fall and was diagnosed with acute blood loss anemia secondry to R medial thigh hematoma. 1. Strep Viridan Bacteremia IV rocephin x 6 weeks (see ID notes) - End date around 09/07/20 TTE this admission with no veg. reported Repeat cx negative - will need PICC line tomorrow 2. Acute Blood Loss Anemia, secondary to R thigh hematoma s/p 2 units PRBCs; s/p evacuation h/h stable d/w Gen Surg -- okay to start Eliquis back, ordered for tomorrow AM (2.5mg bid in light of her ckd + recent hematoma + home dose) 3. HyperNa resolved encourage oral hydration 4. Transaminitis down trending clinically no RUQ pain to suggest acute earle amio restarted 5. Thromcytopnia resolved 6. LINDA on CKD stage 3/4 Resolved SCr at baseline (in fact, improved from baseline) 7. DM sliding scale poc qidac 8. PAF currently in sinus continue baseline meds except eliquis -- restart timing to be determined amiodaron 200mg daily 8. Positive occult blood GI input appreciated outpatient f/u in GI clinic 9. Weakness pt eval --- STR Full Code DVT pptx, Eliquis to start tomrrow AM Dispo: to STR once picc line placed
[2020-08-03 16:18] LABS: Glucose, Whole Blood 107 mg/dL (60-115)
[2020-08-03 20:14] LABS: Glucose, Whole Blood 128 mg/dL (60-115)
[2020-08-03] MEDS: cefTRIAXone sodium 1 GM in 0.9 % Sodium Chloride 50 ML IV (22:55)
[2020-08-04] MEDS: 0.9 % Sodium Chloride Flush 3 ML SYRINGE IVFLUSH ×3 (00:07→15:09)
[2020-08-04 04:00] VITALS: BP 133/64; PULSE 72; RESP 18; TEMP 36.7; O2SAT 99
[2020-08-04] MEDS: Omeprazole 20 MG CAPSULE.DR PO (05:34)
[2020-08-04 06:51] LABS: Hematocrit 29.5 % (37-47); Hemoglobin 9.3 g/dl (12.0-16.0); Mean Corpuscular HGB Conc 31.5 g/dl (31.0-35.0); Mean Corpuscular Hemoglobin 29.2 pg (27.0-33.0); Mean Corpuscular Volume 92.5 fL (80-98); Mean Platelet Volume 11.3 fL (9.4-12.3); Platelet Count 176 X10*3/uL (160-400); Red Blood Count 3.19 X10*6/uL (4.20-5.50); Red Cell Distribution Width 14.6 % (11.0-16.0); White Blood Count 8.4 X10*3/uL (4.8-10.8)
[2020-08-04 07:07] VITALS: BP 149/67; PULSE 69; RESP 16; TEMP 36.7; O2SAT 92
[2020-08-04 07:24] LABS: Glucose, Whole Blood 82 mg/dL (60-115)
[2020-08-04 07:27] LABS: Anion Gap 10 (12-20); Blood Urea Nitrogen 17 mg/dL (9-16); Calcium 8.3 mg/dL (8.4-10.2); Carbon Dioxide 31 mmol/L (22-29); Chloride 104 mmol/L (96-108); Creatinine Clr Calc Pharmacy 33.5; Estimated Glomerular Filt Rate 43; Glucose Random 77 mg/dL (60-115); Potassium 3.8 mmol/L (3.3-5.1); Sodium 141 mmol/L (135-145)
[2020-08-04 07:34] VITALS: PULSE 61; O2SAT 91
[2020-08-04] MEDS: Isosorbide Mononitrate 30 MG TAB.ER.24H PO (08:46)
[2020-08-04] MEDS: Cholecalciferol (Vitamin D3) 25 MCG TABLET PO (08:46)
[2020-08-04] MEDS: Amiodarone HCL 200 MG TABLET PO (08:46)
[2020-08-04] MEDS: Apixaban 2.5 MG TABLET PO (08:46)
[2020-08-04] MEDS: Ferrous Sulfate 324 MG TABLET.DR PO (08:47)
[2020-08-04] MEDS: Memantine HCl 10 MG TABLET PO (08:47)
[2020-08-04] MEDS: hydrALAZINE HCl 50 MG TABLET 100 MG PO (08:47)
[2020-08-04] MEDS: Sertraline HCL 100 MG TABLET PO (08:47)
[2020-08-04] MEDS: calcitrioL 0.25 MCG CAPSULE PO (08:50)
--- NOTE | 2020-08-04 09:57 | PM.DS ---
DS: Providers Provider Date of Service: 08/04/20 Date of admission: 07/24/20 00:32 Primary care physician: Anthony Titus MD Consults: 07/24/20 00:39 Consult to Cardiology Stat Consulting Provider: Kenn Gamez Reason for consultation: high troponin Consult to General Surgery Routine Consulting Provider: Stu Fragoso Reason for consultation: thigh hematoma 07/24/20 00:43 Consult to Gastroenterology Routine Consulting Provider: Gerry Lockett Reason for consultation: guaiac positive stool 07/24/20 09:24 Consult to Hematology / Oncology Routine Consulting Provider: Michelle Sawyer Reason for consultation: worsening thrombocytopenia -unclear etiology Has provider been notified: No 07/25/20 14:47 Consult to Infectious Diseases Routine Consulting Provider: Petra Oakes Reason for consultation: acute cholecystitis / thrombocytopenia Has provider been notified: No DS: Diagnosis Discharge Diagnosis (1) Hematoma of right thigh: Status: Acute Problem details: POD #1 s/p incision and drainage of right thigh hematoma (2) CAD (coronary artery disease): Status: Acute (3) Diabetes mellitus: Status: Acute (4) S/P TAVR (transcatheter aortic valve replacement): Status: Acute Problem details: 02/2020 for symptomatic severe with 23 mm valve (5) Paroxysmal atrial fibrillation: Status: Acute (6) Chronic kidney disease, stage 4 (severe): Status: Acute (7) Acute blood loss anemia: Status: Acute (8) Bacteremia: Status: Acute (9) Acute renal failure: Status: Acute (10) Hypernatremia: Status: Acute DS: Medications Discharge Medications Home Medications: Home Medications Medication Instructions Recorded Confirmed acetaminophen 650 mg PO Q4H PRN 03/05/20 07/23/20 calcitriol 0.25 mcg PO 3XW 03/05/20 07/23/20 cholecalciferol (vitamin D3) 2,000 unit PO DAILY 03/05/20 07/23/20 memantine [Namenda XR] 21 mg PO DAILY 03/05/20 07/23/20 nitroglycerin [Nitrostat] 0.4 mg SUBLINGUAL Q5M PRN 03/05/20 07/23/20 rivastigmine tartrate 6 mg PO BID 03/05/20 07/23/20 sennosides [senna] 8.6 mg PO BEDTIME 03/05/20 07/23/20 sertraline 100 mg PO DAILY 03/05/20 07/23/20 albuterol sulfate 90 mcg/actuation 2 puff INHALATION Q6H PRN g 04/06/20 07/23/20 aerosol inhaler apixaban 2.5 mg tablet 2.5 mg PO BID 04/23/20 07/23/20 amlodipine 5 mg tablet 5 mg PO DAILY 05/09/20 07/23/20 meclizine 25 mg PO BID 05/19/20 07/23/20 umeclidinium 62.5 mcg/actuation 1 inh INHALATION BEDTIME 06/10/20 07/23/20 blister powder for inhalation ferrous sulfate 325 mg (65 mg 325 mg PO BID tab 07/23/20 07/23/20 iron) tablet Previous Rx's Medication Instructions Recorded amiodarone 200 mg tablet 200 mg PO DAILY #90 tab 03/24/20 hydralazine 100 mg tablet 100 mg PO BID #180 tab 04/07/20 isosorbide mononitrate 30 mg 30 mg PO DAILY #90 tab 04/09/20 tablet,extended release 24 hr pregabalin 50 mg capsule 50 mg PO TID 90 Days #270 cap 04/15/20 atorvastatin 20 mg tablet 20 mg PO DAILY #90 tab 05/25/20 omeprazole 20 mg capsule,delayed 20 mg PO DAILY #90 cap 07/04/20 release ceftriaxone 1 g IV Q24H 36 Days ea 08/04/20 DS: Summary Hospital Course Hospital Course: Patient was admitted for mechanical fall complicated by acute blood loss anemia due to right thigh hematoma and acute kidney injury on CKD 4. Jan hemoglobin is 7.7. Patient received 2 units PRBC and hemoglobin improved appropriately and remained stable. It is 9.3 at discharge. Patient's baseline creatinine is around 1.5-2. It increased to 2.16, but at discharge is around 1.22. Patient's Eliquis was held. She underwent hematoma evacuation. She was found to have strep mitis bacteremia without sepsis, on blood cultures 07/27/2020, blood cultures cleared on 07/30/2020. No vegetations are echocardiogram. Patient does have a bovine prosthetic aortic valve. She was seen by infectious disease recommended 6 weeks total IV antibiotics with ceftriaxone. She will complete on 09/09/2020. Course was also complicated by concern of acute cholecystitis due to elevated LFTs and gallbladder wall thickening on ultrasound. However, this resolved with IV antibiotics, no further interventions were taken. And patient had no right upper quadrant pain. Course was also complicated by hypernatremia, which peaked at 149. This improved with increased free fluid intake and at discharge is 141. Discharged to long term facility to complete her IV antibiotics. Time Spent with Patient Time attestation: Total time spent providing and/or coordinating discharge services: Discharge coordination time: Greater than 30 minutes Physical Exam Vital Signs: Vital Signs: Last Vital Signs Temp 98.1 F 08/04/20 07:07 Pulse 69 08/04/20 07:07 Resp 16 08/04/20 07:07 BP 149/67 H 08/04/20 07:07 Pulse Ox 92 08/04/20 07:07 Body Mass Index 32.3 General: AO X 3, no acute distress Resp: CTA bilateral CVS: S1,S2,RRR GI: soft, non tender, non distended Neuro: motor grossly intact Psych: appropriate affect DS: Data Data Completed and Pending Completed studies during hospitalization [Text1]: Pending at discharge 07/28/20 08:32 Surgical [PTH] Routine Labs on day of discharge: Laboratory Results - last 24 hr 08/03/20 08/03/20 08/03/20 11:00 16:14 20:07 WBC RBC Hgb Hct MCV MCH MCHC RDW Plt Count MPV Absolute Nucleated RBC Nucleated RBC % (auto) Sodium Potassium Chloride Carbon Dioxide Anion Gap BUN Creatinine Estim Creat Clear Calc Estimated GFR POC Glucose 127 H 107 128 H Random Glucose Calcium 08/04/20 08/04/20 08/04/20 05:53 05:53 07:06 WBC 8.4 RBC 3.19 L Hgb 9.3 L Hct 29.5 L MCV 92.5 MCH 29.2 MCHC 31.5 RDW 14.6 Plt Count 176 MPV 11.3 Absolute Nucleated RBC 0.000 Nucleated RBC % (auto) 0.0 Sodium 141 Potassium 3.8 Chloride 104 Carbon Dioxide 31 H Anion Gap 10 L BUN 17 H Creatinine 1.22 Estim Creat Clear Calc 33.5 Estimated GFR 43 POC Glucose 82 Random Glucose 77 Calcium 8.3 L Preliminary micro results at discharge 07/30/20 22:48 Blood Culture - Preliminary Blood - Venous No growth after 48 hours. 07/30/20 22:55 Blood Culture - Preliminary Blood - Venous No growth after 48 hours. Discharge Plan Discharge Patient Disposition: Xfer SNF Referrals: [facility] [Outside] Anthony Titus MD [Primary Care Provider] - (SNF-) Discharge Medications: New ceftriaxone 1 gram Recon Soln 1 g IV Q24H 36 Days RF: 0 Continued amiodarone 200 mg tablet 200 mg PO DAILY Qty: 90 RF: 1 hydralazine 100 mg tablet 100 mg PO BID Qty: 180 RF: 1 isosorbide mononitrate 30 mg tablet extended release 24 hr 30 mg PO DAILY Qty: 90 RF: 1 pregabalin 50 mg capsule 50 mg PO TID 90 Days Qty: 270 RF: 0 atorvastatin 20 mg tablet 20 mg PO DAILY Qty: 90 RF: 3 omeprazole 20 mg capsule,delayed release(DR/EC) 20 mg PO DAILY Qty: 90 RF: 0 acetaminophen 650 mg Tablet 650 mg PO Q4H PRN (Reason: Headache) RF: 0 calcitriol 0.25 mcg Capsule 0.25 mcg PO 3XW RF: 0 cholecalciferol (vitamin D3) 50 mcg (2,000 unit) Capsule 2,000 unit PO DAILY RF: 0 memantine [Namenda XR] 21 mg Capsule,Sprinkle,Er 24hr 21 mg PO DAILY RF: 0 nitroglycerin [Nitrostat] 0.3 mg Tablet, Sublingual 0.4 mg SUBLINGUAL Q5M PRN (Reason: Chest Pain) RF: 0 rivastigmine tartrate 6 mg Capsule 6 mg PO BID RF: 0 sennosides [senna] 8.6 mg Tablet 8.6 mg PO BEDTIME RF: 0 sertraline 100 mg Tablet 100 mg PO DAILY RF: 0 albuterol sulfate [ProAir HFA] 90 mcg/actuation HFA aerosol inhaler 2 puff INHALATION Q6H PRN (Reason: Wheezing) RF: 0 ferrous sulfate [Feosol] 325 mg (65 mg iron) tablet 325 mg PO BID RF: 0 meclizine 12.5 mg tablet 25 mg PO BID RF: 0 amlodipine 5 mg tablet 5 mg PO DAILY RF: 0 Incruse Ellipta 62.5 mcg/actuation blister with device 1 inh inhalation BEDTIME RF: 0 Eliquis 2.5 mg tablet 2.5 mg PO BID RF: 0 Discontinued nitrofurantoin macrocrystal 100 mg capsule 100 mg PO DAILY Qty: 90 RF: 1 Discharge Orders: Discharge Order (Routine); Ordered 08/04/20 Ordered By: Cl Mckinney Activity on Discharge: As tolerated Stand Alone Forms: Patient Portal Discharge page Care Plan Goals: [facility] Concerns: Bacteremia, hematoma Plan of Treatment: Six weeks of IV ceftriaxone to be completed September 09
--- NOTE | 2020-08-04 10:21 | MHC.CLN ---
F/U PO INTAKE 50% AVG (07/31-08/04) DIET RX: 1200DM 2GM NA-APPROPRIATE PT RECEIVING HARVEY TO [facility] FOLLOWING
[2020-08-04 10:53] VITALS: BP 123/58; PULSE 68; RESP 16; TEMP 36.2; O2SAT 90
--- NOTE | 2020-08-04 11:54 | MHC.CM.PN ---
pt expected to be dcd today to [facility] pending picc placement and covid test results
--- NOTE | 2020-08-04 12:44 | P.PICC_ITS ---
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 Following completion of [place] Protocol the skin and soft tissues were anesthetized with 1% Lidocaine plain. Using ultrasound guidance, CEPHALIC vein access was obtained IN SINGLE ATTEMPT BY THIS RN. Over an 0.018 wire through peel-away sheath, a SINGLE LUMEN, 4 TAMAZIGHT, PASV PICC line was positioned. Catheter length is 38 CM internal length, 0 CM external length, for a total trimmed length of 38 CM. The procedure was performed in 272-1. Tip verification was performed by Azar Holley with Yan 3CG. Tip located in SVC. Ultrasound was used to document vein patency and for needle entry. A formal ultrasound picture and cardiac rhythm strip was recorded. Vascular Relationship Consultant has released the line for use and it is currently dressed with a StatLock, Tegaderm, and CHG disc. Verification has been performed for blood return and line patency. Arm Circumference: 36 CM Equipment: Simplesurance POWER PICC SOLO Catheter Type: 4 TAMAZIGHT, SINGLE LUMEN, PASV Lot #: [id number]
[2020-08-04 13:01] LABS: Glucose, Whole Blood 104 mg/dL (60-115)
[2020-08-04 13:10] LABS: COVID-19 Test Negative (Negative); IDNOW Serial# 9DD0AD1C
--- NOTE | 2020-08-04 13:32 | MHC.CM.PN ---
pt to be transferred today at 4;00 TO [facility] BY [facility] [phone] NOTIFIED
[2020-08-04] MEDS: 0.9 % Sodium Chloride Flush 10 ML SYRINGE 5 ML IVFLUSH (15:09)
== END 2020-08-04 16:04 | DRG 604 ==
LOC: HO.ED 23:23 → HO.EDOVER 07-24 04:18 → HO.IMC 07-24 13:36
PROVIDERS: Family Medicine; Internal Medicine; Internal Medicine Cardiovascular Disease; Surgery; Admitting Provider Hospitalist; Emergency Provider Internal Medicine; PCP Internal Medicine; Visit Provider Internal Medicine
PROC: 0JCL0ZZ Extirpation of Matter from Right Upper Leg Subcutaneous Tissue and Fascia, Open Approach (ICD-10-PCS; principal; 2020-07-28 08:00)
DX: S70.11XA Contusion of right thigh, initial encounter (principal); N17.0 Acute kidney failure with tubular necrosis; I21.4 Non-ST elevation (NSTEMI) myocardial infarction; I13.0 Hypertensive heart and chronic kidney disease with heart failure and stage 1 through stage 4 chronic kidney disease, or unspecified chronic kidney disease; N18.4 Chronic kidney disease, stage 4 (severe); I50.32 Chronic diastolic (congestive) heart failure; D62 Acute posthemorrhagic anemia; E87.0 Hyperosmolality and hypernatremia; R78.81 Bacteremia; F17.210 Nicotine dependence, cigarettes, uncomplicated; Z71.6 Tobacco abuse counseling; W18.30XA Fall on same level, unspecified, initial encounter; Y93.9 Activity, unspecified; Y92.000 Kitchen of unspecified non-institutional (private) residence as the place of occurrence of the external cause; Y99.9 Unspecified external cause status; E11.42 Type 2 diabetes mellitus with diabetic polyneuropathy; D63.1 Anemia in chronic kidney disease; K80.80 Other cholelithiasis without obstruction; R19.5 Other fecal abnormalities; I48.0 Paroxysmal atrial fibrillation; E11.22 Type 2 diabetes mellitus with diabetic chronic kidney disease; D69.6 Thrombocytopenia, unspecified; Z95.3 Presence of xenogenic heart valve; Z20.822 Contact with and (suspected) exposure to COVID-19; Z88.0 Allergy status to penicillin; Z79.01 Long term (current) use of anticoagulants; Z79.899 Other long term (current) drug therapy; B95.4 Other streptococcus as the cause of diseases classified elsewhere
CPT/HCPCS: 36415; 36430; 36573; 70450; 72125; 73552; 73700; 76700; 80048; 80076; 82272; 82550; 82607; 82728; 82746; 82947; 83540; 84443; 84484; 85025; 85027; 85610; 86704; 86706; 86709; 86803; 86850; 86870; 86885; 86900; 86901; 86902; 86905; 86920; 86922; 87040; 87077; 87186; 87205; 87340; 87635; 88304; 93005; 93306; 93971; 96374; 97162; 97166; 97530; 97535; 99285; C1751; J0690; J0696; J1956; J3010; P9016

== ENCOUNTER 2020-08-21 12:52 | Outpatient (REF) | payer MEDICARE, SELFPAY ==
[2020-08-21 13:07] LABS: Basophils Percent Auto 0.4 % (0-2); Eosinophils Absolute Auto 0.1 X10*3/uL (0.0-0.4); Eosinophils Percent Auto 1.1 % (0-4); Hematocrit 31.2 % (37-47); Hemoglobin 9.7 g/dl (12.0-16.0); Imm Gran Abs Auto 0.04 X10*3/uL (0.00-0.03); Imm Gran Pct Auto 0.5 % (0.0-0.4); Lymphocytes Absolute Auto 0.7 X10*3/uL (1.2-4.9); Lymphocytes Percent Auto 8.4 % (20-40); MANUAL DIFF FLAG SCAN; Mean Corpuscular HGB Conc 31.1 g/dl (31.0-35.0); Mean Corpuscular Hemoglobin 29.8 pg (27.0-33.0); Mean Corpuscular Volume 95.7 fL (80-98); Mean Platelet Volume 12.9 fL (9.4-12.3); Monocytes Absolute Auto 0.7 X10*3/uL (0.1-1.2); Neutrophils Absolute Auto 6.6 X10*3/uL (2.0-8.3); Neutrophils Percent Auto 80.6 % (45-73); Red Blood Count 3.26 X10*6/uL (4.20-5.50); Red Cell Distribution Width 16.6 % (11.0-16.0); SCAN SMEAR FLAG 1; White Blood Count 8.2 X10*3/uL (4.8-10.8)
[2020-08-21 13:08] LABS: Platelet Count 77 X10*3/uL (160-400)
[2020-08-21 13:33] LABS: SLIDE REVIEW VERIFIED
[2020-08-21 13:35] LABS: Anion Gap 10 (12-20); Blood Urea Nitrogen 42 mg/dL (9-16); Calcium 8.7 mg/dL (8.4-10.2); Carbon Dioxide 32 mmol/L (22-29); Chloride 103 mmol/L (96-108); Estimated Glomerular Filt Rate 31; Glucose Random 102 mg/dL (60-115); Potassium 4.4 mmol/L (3.3-5.1); Sodium 141 mmol/L (135-145)
== END 2020-08-21 12:53 | disposition home or self-care (01) ==
LOC: HO.LNP 12:52
PROVIDERS: Visit Provider Internal Medicine
DX: R78.81 Bacteremia (principal)
CPT/HCPCS: 80048; 85025

== ENCOUNTER 2020-08-22 11:39 | Emergency (ER) | payer MEDICARE, SELFPAY ==
[2020-08-22 11:56] VITALS: BP 140/61; PULSE 58; RESP 16; TEMP 36.8; O2SAT 95; BMI 31.8
[2020-08-22 13:05] LABS: Baso%MD 0.4 %; Eos%MD 0.9 %; Hematocrit 30.4 % (37-47); Hemoglobin 9.4 g/dl (12.0-16.0); IG%MD 0.6 %; Lymph%MD 9.6 %; Mean Corpuscular HGB Conc 30.9 g/dl (31.0-35.0); Mean Corpuscular Hemoglobin 29.7 pg (27.0-33.0); Mean Corpuscular Volume 95.9 fL (80-98); Mean Platelet Volume 12.7 fL (9.4-12.3); Mono%MD 9.9 %; Neut%MD 78.6 %; Red Blood Count 3.17 X10*6/uL (4.20-5.50); Red Cell Distribution Width 16.6 % (11.0-16.0); White Blood Count 6.9 X10*3/uL (4.8-10.8)
--- NOTE | 2020-08-22 13:06 | ED_ITS ---
HPI - Recheck/Abnormal Lab/Rx General Chief Complaint: Recheck/Abnormal Lab/Rx Stated Complaint: ABNORMAL LABS Time Seen by Provider: 08/22/20 12:32 Source: patient and family Mode of arrival: ambulatory Limitations: no limitations History of Present Illness HPI narrative: 79 y/o female with history of afib on Eliquis, CKD IV, s/p TAVR, DM2 with recent admission to [facility] [place] 07/24 - 08/04 for a mechanical fall leading to a thigh hematoma requiring PRBC transfusion & surgical evacuation, course complicated by Strep bacteremia discharged on IV Rocephin who presents to the ED from home with worsening thrombocytopenia on routine lab work done yesterday. Platelets 77K. from 176K two weeks prior. She did have thrombocytopenia during here admission here in July, as low as 33K on arrival which improved to 160- 170K on discharge 08/04. She denies any signs or symptoms of bleeding. Related Data Home Medications Medication Instructions Recorded Confirmed acetaminophen 650 mg PO Q4H PRN 03/05/20 07/23/20 calcitriol 0.25 mcg PO 3XW 03/05/20 07/23/20 cholecalciferol (vitamin D3) 2,000 unit PO DAILY 03/05/20 07/23/20 memantine [Namenda XR] 21 mg PO DAILY 03/05/20 07/23/20 nitroglycerin [Nitrostat] 0.4 mg SUBLINGUAL Q5M PRN 03/05/20 07/23/20 rivastigmine tartrate 6 mg PO BID 03/05/20 07/23/20 sennosides [senna] 8.6 mg PO BEDTIME 03/05/20 07/23/20 sertraline 100 mg PO DAILY 03/05/20 07/23/20 albuterol sulfate 90 mcg/actuation 2 puff INHALATION Q6H PRN g 04/06/20 07/23/20 aerosol inhaler apixaban 2.5 mg tablet 2.5 mg PO BID 04/23/20 07/23/20 amlodipine 5 mg tablet 5 mg PO DAILY 05/09/20 07/23/20 meclizine 25 mg PO BID 05/19/20 07/23/20 umeclidinium 62.5 mcg/actuation 1 inh INHALATION BEDTIME 06/10/20 07/23/20 blister powder for inhalation ferrous sulfate 325 mg (65 mg 325 mg PO BID tab 07/23/20 07/23/20 iron) tablet Previous Rx's Medication Instructions Recorded isosorbide mononitrate 30 mg 30 mg PO DAILY #90 tab 04/09/20 tablet,extended release 24 hr pregabalin 50 mg capsule 50 mg PO TID 90 Days #270 cap 04/15/20 atorvastatin 20 mg tablet 20 mg PO DAILY #90 tab 05/25/20 ceftriaxone 1 g IV Q24H 36 Days ea 08/04/20 amiodarone 200 mg tablet 200 mg PO DAILY #90 tab 08/15/20 hydralazine 100 mg tablet 100 mg PO BID #180 tab 08/15/20 omeprazole 20 mg capsule,delayed 20 mg PO DAILY #90 cap 08/15/20 release Allergies Allergy/AdvReac Type Severity Reaction Status Date / Time Penicillins [PENICILLINS] Allergy Severe HIVES/SWELL Verified 07/23/20 13:39 ING Review of Systems Review of Systems: Constitutional: No Fever, No Chills ENT/Mouth: No sore throat, No Rhinorrhea, No Swallowing Difficulty Cardiovascular: No Chest Pain, No SOB, No Orthopnea, No Edema Respiratory: No Cough, No Sputum, No Wheezing, No dyspnea Gastrointestinal: No Nausea, No Vomiting, No Diarrhea, No abdominal Pain, No Hematochezia, No Melena Genitourinary: No Dysuria, No Urinary Frequency, No Hematuria Musculoskeletal: No joint pain, No Myalgias Skin: No Skin Lesions, No rash Neuro: No Weakness, No Numbness, No Dizziness, No Headache Psych: No Anxiety/Panic, No Depression Heme/Lymph: + Bruising (from prior IV attempts), No Lymphadenopathy Endocrine: No Polyuria, No Polydipsia [facility] Past Medical History Attestation statement: The following information was validated with the patient. Medical History (HFpEF) heart failure with preserved ejection fraction Acute blood loss anemia Afib Anemia Anxiety Aortic valve stenosis Asthma Bacteremia Bacteremia Bacteremia Basal cell carcinoma Benign essential hypertension Chronic kidney disease, stage 4 (severe) COPD (chronic obstructive pulmonary disease) Diabetic polyneuropathy Fracture Gallstones Hypernatremia Melanoma Mild cognitive impairment with memory loss Obesity (BMI 30-39.9) Paroxysmal atrial fibrillation Pure hypercholesterolemia Thrombocytopenia Type 2 diabetes mellitus with diabetic chronic kidney disease Surgical History History of cardiac catheterization History of colonoscopy History of eye surgery 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) Stented coronary artery Family History Family History Father Medical history unknown Mother Acute myeloid leukemia Cancer Maternal Grandmother Myocardial infarction Brother Myocardial infarction Sister Brain aneurysm Social History Social History Household Members: Spouse and Family Housing: House Alcohol intake: never Smoking Status: Former smoker Tobacco Type: Cigarette Packs Per Day: 0.5 Years Smoked: 19 Use of substances other than those prescribed or required for medical reasons: No Advance Directives: Yes Advance Directives on File: Yes Advance Directives Date on File: 07/24/20 service: No Current occupational status: retired Physical Exam Vital Signs: Vital Signs: Last Vital Signs Temp 97.5 F 08/22/20 15:44 Pulse 61 08/22/20 15:44 Resp 17 08/22/20 15:44 BP 171/64 H 08/22/20 15:44 Pulse Ox 95 08/22/20 15:44 Body Mass Index 31.8 Appearance: Alert. Oriented X3. No acute distress. Eyes: Pupils equal, round and reactive to light. ENT: Pharynx normal. Neck: Normal inspection. Neck supple. CVS: Normal heart rate and rhythm. Pulses normal. Respiratory: No respiratory distress. Breath sounds normal. Abdomen: Obese, Soft and nontender. +BS x4 Skin: Skin warm and dry. Normal skin color. Normal skin turgor. No rashes. Extremities: No lower extremity edema. Right inner thigh hematoma w/ meplex raudel ssing, packing in place, no oozing of blood or drainage, no surrouding erythema, warmth or tenderenss. Neuro: Oriented X 3. No motor deficit. No sensory deficit. Course Course Course Narrative: 79 y/o female presenting with thrombocytopenia 77K in the setting of recent bacteremia and IV rocephin. No active bleeding. No indication for transfusion at this time. Will get repeat CBC and chemistry. No signs of ongoing bacteremia or infection but will get surveillence cultures. Reevaluation(s) Reevaluation #1: CBC showing platelets 70K. Stable H/H. Timeline is not consistent with HIT. CKD at baseline. Spoke with Dr. Oakes who is recommending changing from Rocephin to IV Vancomycin for duration of her therapy through 09/09. Reevaluation #2: Spoke with Pharmacy who is recommending 750 mg IV vanco Q24 hours with trough before 4th dose which has been ordered. Patient has been given her 1st dose here since she has not gotten her rocephin today. Labs ordered for Tuesday. Stable for discharge. Consultations Consultation #1: ID - [place]. MDM - Recheck/Abnormal Lab/Rx Lab Data Result diagrams: 08/22/20 12:51 08/22/20 12:51 Labs: Lab Results 08/22/20 08/22/20 08/22/20 Range/Units 12:51 12:51 12:51 WBC (4.8-10.8) X10*3/uL RBC (4.20-5.50) X10*6/uL Hgb (12.0-16.0) g/dl Hct (37-47) % MCV (80-98) fL MCH (27.0-33.0) pg MCHC (31.0-35.0) g/dl RDW (11.0-16.0) % Plt Count (160-400) X10*3/uL MPV (9.4-12.3) fL Absolute Nucleated RBC (0.0-0.012) X10*3/uL Nucleated RBC % (auto) (0.0-0.2) /100WBC Neutrophils % (Manual) (45-73) % Band Neutrophils % (3-5) % Lymphocytes % (Manual) (20-40) % Monocytes % (Manual) (2-11) % Abs Neuts (Manual) (2.2-7.9) X10*3/uL Lymphocytes # (Manual) (0.6-4.8) X10*3/uL Monocytes # (Manual) (0.0-1.2) X10*3/uL Platelet Estimate (NORMAL) Large Platelets Plt Morphology Comment RBC Morphology Hypochromasia /OIF Schistocytes /OIF PT 16.7 H (10.8-13.0) SEC INR 1.4 H (0.9-1.1) APTT 42.8 H (24.1-38.0) SEC Sodium 139 (135-145) mmol/L Potassium 4.2 (3.3-5.1) mmol/L Chloride 103 (96-108) mmol/L Carbon Dioxide 31 H (22-29) mmol/L Anion Gap 9 L (12-20) BUN 40 H (9-16) mg/dL Creatinine 1.58 H (0.5-1.4) mg/dL Estim Creat Clear Calc 25.7 Estimated GFR 32 Random Glucose 107 (60-115) mg/dL Lactic Acid 0.5 (0.5-2.0) mmol/L Calcium 8.5 (8.4-10.2) mg/dL Magnesium 2.2 (1.6-2.6) mg/dL Total Bilirubin 0.4 (0.0-1.0) mg/dL Direct Bilirubin < 0.2 (0.0-0.5) mg/dL AST 104 H (5-31) U/L ALT 86 H (0-31) U/L Alkaline Phosphatase 85 (39-117) U/L Total Protein 5.9 L (6.5-8.0) g/dL Albumin 3.2 L (3.5-5.0) g/dL //21 Range/Units 12:51 WBC 6.9 (4.8-10.8) X10*3/uL RBC 3.17 L (4.20-5.50) X10*6/uL Hgb 9.4 L (12.0-16.0) g/dl Hct 30.4 L (37-47) % MCV 95.9 (80-98) fL MCH 29.7 (27.0-33.0) pg MCHC 30.9 L (31.0-35.0) g/dl RDW 16.6 H (11.0-16.0) % Plt Count 70 L (160-400) X10*3/uL MPV 12.7 H (9.4-12.3) fL Absolute Nucleated RBC 0.000 (0.0-0.012) X10*3/uL Nucleated RBC % (auto) 0.0 (0.0-0.2) /100WBC Neutrophils % (Manual) 82 H (45-73) % Band Neutrophils % 3 (3-5) % Lymphocytes % (Manual) 8 L (20-40) % Monocytes % (Manual) 7 (2-11) % Abs Neuts (Manual) 5.9 (2.2-7.9) X10*3/uL Lymphocytes # (Manual) 0.6 (0.6-4.8) X10*3/uL Monocytes # (Manual) 0.5 (0.0-1.2) X10*3/uL Platelet Estimate DECREASED (NORMAL) Large Platelets PRESENT Plt Morphology Comment NOTED RBC Morphology NOTED Hypochromasia 1+ (5-14) /OIF Schistocytes 1+ (0-2) /OIF PT (10.8-13.0) SEC INR (0.9-1.1) APTT (24.1-38.0) SEC Sodium (135-145) mmol/L Potassium (3.3-5.1) mmol/L Chloride (96-108) mmol/L Carbon Dioxide (22-29) mmol/L Anion Gap (12-20) BUN (9-16) mg/dL Creatinine (0.5-1.4) mg/dL Estim Creat Clear Calc Estimated GFR Random Glucose (60-115) mg/dL Lactic Acid (0.5-2.0) mmol/L Calcium (8.4-10.2) mg/dL Magnesium (1.6-2.6) mg/dL Total Bilirubin (0.0-1.0) mg/dL Direct Bilirubin (0.0-0.5) mg/dL AST (5-31) U/L ALT (0-31) U/L Alkaline Phosphatase (39-117) U/L Total Protein (6.5-8.0) g/dL Albumin (3.5-5.0) g/dL Discharge Plan Discharge Clinical Impression: Thrombocytopenia, Chronic kidney disease, stage 4 (severe), Bacteremia Patient Disposition: Home, Self-Care Instructions: Thrombocytopenia (ED) Additional Instructions: Your low platelet counts are likely due from your IV antibiotic, Rocephin. Infectious Disease doctor Dr. Oakes is recommending changing to IV Vancomycin for the duration of your treatment (through 09/09/2020). The starting dose if 750 mg IV every 24 hours, next dose is due tomorrow afternoon. You will need weekly labs done to assess Vancomycin levels and your kidney function. 1st set of labs is due on Tuesday. Follow up with Dr. Oakes. If you have spontaneous bleeding or any other concerning symptom come back to the ER for further evaluation. Prescriptions: No Action isosorbide mononitrate 30 mg tablet extended release 24 hr 30 mg PO DAILY Qty: 90 RF: 1 pregabalin 50 mg capsule 50 mg PO TID 90 Days Qty: 270 RF: 0 atorvastatin 20 mg tablet 20 mg PO DAILY Qty: 90 RF: 3 hydralazine 100 mg tablet 100 mg PO BID Qty: 180 RF: 1 amiodarone 200 mg tablet 200 mg PO DAILY Qty: 90 RF: 1 omeprazole 20 mg capsule,delayed release(DR/EC) 20 mg PO DAILY Qty: 90 RF: 1 acetaminophen 650 mg Tablet 650 mg PO Q4H PRN (Reason: Headache) RF: 0 calcitriol 0.25 mcg Capsule 0.25 mcg PO 3XW RF: 0 cholecalciferol (vitamin D3) 50 mcg (2,000 unit) Capsule 2,000 unit PO DAILY RF: 0 memantine [Namenda XR] 21 mg Capsule,Sprinkle,Er 24hr 21 mg PO DAILY RF: 0 nitroglycerin [Nitrostat] 0.3 mg Tablet, Sublingual 0.4 mg SUBLINGUAL Q5M PRN (Reason: Chest Pain) RF: 0 rivastigmine tartrate 6 mg Capsule 6 mg PO BID RF: 0 sennosides [senna] 8.6 mg Tablet 8.6 mg PO BEDTIME RF: 0 sertraline 100 mg Tablet 100 mg PO DAILY RF: 0 albuterol sulfate [ProAir HFA] 90 mcg/actuation HFA aerosol inhaler 2 puff INHALATION Q6H PRN (Reason: Wheezing) RF: 0 ferrous sulfate [Feosol] 325 mg (65 mg iron) tablet 325 mg PO BID RF: 0 meclizine 12.5 mg tablet 25 mg PO BID RF: 0 ceftriaxone 1 gram Recon Soln 1 g IV Q24H 36 Days RF: 0 amlodipine 5 mg tablet 5 mg PO DAILY RF: 0 Incruse Ellipta 62.5 mcg/actuation blister with device 1 inh inhalation BEDTIME RF: 0 Eliquis 2.5 mg tablet 2.5 mg PO BID RF: 0 Referrals: Petra Oakes MD [Physician] - 1 week
[2020-08-22 13:09] LABS: INTERNATIONAL NORM RATIO 1.4 (0.9-1.1); Prothrombin Time 16.7 SEC (10.8-13.0)
[2020-08-22 13:12] LABS: Partial Thromboplastin Time 42.8 SEC (24.1-38.0)
[2020-08-22 13:13] LABS: Platelet Count 70 X10*3/uL (160-400)
[2020-08-22 13:15] LABS: Lactic Acid 0.5 mmol/L (0.5-2.0)
[2020-08-22 13:30] LABS: Alanine Aminotransferase 86 U/L (0-31); Albumin Level 3.2 g/dL (3.5-5.0); Alkaline Phosphatase 85 U/L (39-117); Anion Gap 9 (12-20); Aspartate Amino Transferase 104 U/L (5-31); Bilirubin Direct < 0.2 mg/dL (0.0-0.5); Bilirubin Total 0.4 mg/dL (0.0-1.0); Blood Urea Nitrogen 40 mg/dL (9-16); Calcium 8.5 mg/dL (8.4-10.2); Carbon Dioxide 31 mmol/L (22-29); Chloride 103 mmol/L (96-108); Creatinine Clr Calc Pharmacy 25.7; Estimated Glomerular Filt Rate 32; Glucose Random 107 mg/dL (60-115); Magnesium 2.2 mg/dL (1.6-2.6); Potassium 4.2 mmol/L (3.3-5.1); Sodium 139 mmol/L (135-145); Total Protein 5.9 g/dL (6.5-8.0)
--- NOTE | 2020-08-22 13:39 | PC.NURSE ---
only drawing 1 set of blood cultures per providers ok.
[2020-08-22 13:42] VITALS: BP 165/69; PULSE 61; RESP 17; TEMP 36.3; O2SAT 94
--- NOTE | 2020-08-22 13:49 | PC.NURSE ---
labs drawn, vss, will continue to monitor.
[2020-08-22 14:30] LABS: Band Neutrophils Percent 3 % (3-5); Hypochromasia 1+ (5-14) /OIF; Lymphocytes Absolute Manual 0.6 X10*3/uL (0.6-4.8); Lymphocytes Percent Manual 8 % (20-40); Monocytes Absolute Manual 0.5 X10*3/uL (0.0-1.2); Monocytes Percent Manual 7 % (2-11); Neutrophils Absolute Manual 5.9 X10*3/uL (2.2-7.9); Neutrophils Percent Manual 82 % (45-73); RBC Morphology NOTED
[2020-08-22 14:32] LABS: Large Platelet PRESENT; Platelet Estimate DECREASED (NORMAL); Platelet Morphology Comment NOTED; Schistocytes 1+ (0-2) /OIF
--- NOTE | 2020-08-22 14:53 | PC.NURSE ---
[facility] faxed patients med list including antibiotic the patient is due for- virgil, provider was notified, will continue to monitor.
[2020-08-22] MEDS: vancomycin HCL 750 MG in 0.9 % Sodium Chloride 250 ML 265 MG IV (15:42)
[2020-08-22 15:44] VITALS: BP 171/64; PULSE 61; RESP 17; TEMP 36.4; O2SAT 95
--- NOTE | 2020-08-22 15:47 | PC.NURSE ---
iv antibiotics running per order, vss, daughter at bedside, will continue to monitor.
--- NOTE | 2020-08-22 17:07 | MHC.CM.ED ---
CM asked to help facilitate change in pt home IV infusion therapy. Medication changed to Vancomycin secondary to thrombocytopenia. [facility] and [facility] are involved with pt. Spoke with both Shannan from [facility] and with Meche from [employer]. Order for medication change and labs obtained from [facility]. Completed by Ivonne LINDSAY and uploaded into [employer] and faxed to [facility] ([phone]). CM to follow for d/c needs
--- NOTE | 2020-08-22 17:46 | MHC.CM.ED ---
Received confirmation that faxed Medication order sheet, Labs and discharge summary were received by [facility] ([phone].). Telephone confirmation with Meche from [employer] that [facility] information was correct. Requested that Vancomycin trough have a range completed by . Obtained and re uploaded into [employer].
== END 2020-08-22 17:40 | disposition home or self-care (01) ==
PROVIDERS: Physician Assistant; Emergency Provider Emergency Medicine Emergency Medical Services; PCP Internal Medicine
DX: D69.6 Thrombocytopenia, unspecified (principal); E11.22 Type 2 diabetes mellitus with diabetic chronic kidney disease; I13.0 Hypertensive heart and chronic kidney disease with heart failure and stage 1 through stage 4 chronic kidney disease, or unspecified chronic kidney disease; N18.4 Chronic kidney disease, stage 4 (severe); I50.9 Heart failure, unspecified; R78.81 Bacteremia; D64.9 Anemia, unspecified; J45.909 Unspecified asthma, uncomplicated; J44.9 Chronic obstructive pulmonary disease, unspecified; I48.0 Paroxysmal atrial fibrillation; F17.210 Nicotine dependence, cigarettes, uncomplicated; Z79.899 Other long term (current) drug therapy; Z79.01 Long term (current) use of anticoagulants
CPT/HCPCS: 36415; 80048; 80076; 83605; 83735; 85007; 85027; 85610; 85730; 87040; 96365; 99284; J3370

== ENCOUNTER 2020-08-25 15:21 | Outpatient (REF) | payer MEDICARE, SELFPAY ==
[2020-08-25 15:34] LABS: Basophils Percent Auto 0.6 % (0-2); Eosinophils Absolute Auto 0.1 X10*3/uL (0.0-0.4); Hematocrit 31.2 % (37-47); Hemoglobin 9.6 g/dl (12.0-16.0); Imm Gran Abs Auto 0.05 X10*3/uL (0.00-0.03); Imm Gran Pct Auto 0.7 % (0.0-0.4); Lymphocytes Absolute Auto 0.6 X10*3/uL (1.2-4.9); Lymphocytes Percent Auto 9.1 % (20-40); MANUAL DIFF FLAG SCAN; Mean Corpuscular HGB Conc 30.8 g/dl (31.0-35.0); Mean Corpuscular Hemoglobin 29.6 pg (27.0-33.0); Mean Corpuscular Volume 96.3 fL (80-98); Mean Platelet Volume 12.9 fL (9.4-12.3); Monocytes Absolute Auto 0.7 X10*3/uL (0.1-1.2); Monocytes Percent Auto 9.7 % (2-11); Neutrophils Absolute Auto 5.5 X10*3/uL (2.0-8.3); Neutrophils Percent Auto 78.9 % (45-73); Platelet Count 103 X10*3/uL (160-400); Red Blood Count 3.24 X10*6/uL (4.20-5.50); Red Cell Distribution Width 16.7 % (11.0-16.0); SCAN SMEAR FLAG 1; White Blood Count 6.9 X10*3/uL (4.8-10.8)
[2020-08-25 15:59] LABS: Anion Gap 11 (12-20); Blood Urea Nitrogen 28 mg/dL (9-16); Calcium 8.7 mg/dL (8.4-10.2); Carbon Dioxide 29 mmol/L (22-29); Chloride 105 mmol/L (96-108); Estimated Glomerular Filt Rate 33; Glucose Random 108 mg/dL (60-115); Potassium 4.2 mmol/L (3.3-5.1); Sodium 141 mmol/L (135-145)
[2020-08-25 16:04] LABS: Vancomycin Trough 13.5 mcg/mL (10.0-20.0)
[2020-08-25 16:10] LABS: SLIDE REVIEW VERIFIED
== END 2020-08-25 15:22 | disposition home or self-care (01) ==
LOC: HO.LNP 15:21
PROVIDERS: PCP Internal Medicine; Visit Provider Internal Medicine
DX: Z45.2 Encounter for adjustment and management of vascular access device (principal); Z79.899 Other long term (current) drug therapy
CPT/HCPCS: 80048; 80202; 85025

== ENCOUNTER → 2020-08-27 13:56 | Outpatient (BNVA) | payer MEDICARE, SELFPAY | PROVIDERS: PCP Internal Medicine; Visit Provider Internal Medicine | DX: R78.81 Bacteremia (principal) | CPT/HCPCS: 99212 ==

== ENCOUNTER 2020-09-01 15:38 | Outpatient (REF) | payer MEDICARE, SELFPAY ==
[2020-09-01 15:45] LABS: Hemoglobin 9.4 g/dl (12.0-16.0); MANUAL DIFF FLAG SCAN; Mean Corpuscular Hemoglobin 29.7 pg (27.0-33.0); Mean Corpuscular Volume 97.8 fL (80-98); SCAN SMEAR FLAG 1
[2020-09-01 15:47] LABS: Basophils Percent Auto 0.5 % (0-2); Eosinophils Absolute Auto 0.1 X10*3/uL (0.0-0.4); Eosinophils Percent Auto 1.7 % (0-4); Imm Gran Abs Auto 0.04 X10*3/uL (0.00-0.03); Imm Gran Pct Auto 0.6 % (0.0-0.4); Lymphocytes Absolute Auto 0.6 X10*3/uL (1.2-4.9); Mean Corpuscular HGB Conc 30.3 g/dl (31.0-35.0); Mean Platelet Volume 12.3 fL (9.4-12.3); Monocytes Absolute Auto 0.7 X10*3/uL (0.1-1.2); Monocytes Percent Auto 10.8 % (2-11); Neutrophils Absolute Auto 5.2 X10*3/uL (2.0-8.3); Neutrophils Percent Auto 77.4 % (45-73); Red Blood Count 3.17 X10*6/uL (4.20-5.50); Red Cell Distribution Width 16.8 % (11.0-16.0); White Blood Count 6.7 X10*3/uL (4.8-10.8)
[2020-09-01 16:12] LABS: PLT ABN DIST 1; Platelet Count 91 X10*3/uL (160-400)
[2020-09-01 16:13] LABS: SLIDE REVIEW VERIFIED
[2020-09-01 16:28] LABS: Anion Gap 14 (12-20); Blood Urea Nitrogen 35 mg/dL (9-16); Calcium 8.6 mg/dL (8.4-10.2); Carbon Dioxide 26 mmol/L (22-29); Chloride 107 mmol/L (96-108); Estimated Glomerular Filt Rate 31; Glucose Random 128 mg/dL (60-115); Potassium 4.5 mmol/L (3.3-5.1); Sodium 142 mmol/L (135-145)
[2020-09-01 16:34] LABS: Vancomycin Trough 21.4 mcg/mL (10.0-20.0)
== END 2020-09-01 15:39 | disposition home or self-care (01) ==
LOC: HO.LNP 15:38
PROVIDERS: Referring Provider Internal Medicine; Visit Provider Internal Medicine
DX: R78.81 Bacteremia (principal); Z79.899 Other long term (current) drug therapy
CPT/HCPCS: 80048; 80202; 85025

== ENCOUNTER → 2020-09-03 11:34 | Outpatient (BNVA) | payer MEDICARE, SELFPAY | PROVIDERS: PCP Internal Medicine; Visit Provider Surgery | DX: Z48.817 Encounter for surgical aftercare following surgery on the skin and subcutaneous tissue (principal); Z87.2 Personal history of diseases of the skin and subcutaneous tissue | CPT/HCPCS: 99212 ==

== ENCOUNTER 2020-09-09 16:07 | Outpatient (REF) | payer MEDICARE, SELFPAY ==
[2020-09-09 16:15] LABS: Basophils Percent Auto 0.6 % (0-2); Eosinophils Absolute Auto 0.1 X10*3/uL (0.0-0.4); Eosinophils Percent Auto 0.9 % (0-4); Hematocrit 35.8 % (37-47); Hemoglobin 11.2 g/dl (12.0-16.0); Imm Gran Abs Auto 0.04 X10*3/uL (0.00-0.03); Imm Gran Pct Auto 0.6 % (0.0-0.4); Lymphocytes Absolute Auto 0.6 X10*3/uL (1.2-4.9); Lymphocytes Percent Auto 8.7 % (20-40); MANUAL DIFF FLAG SCAN; Mean Corpuscular HGB Conc 31.3 g/dl (31.0-35.0); Mean Corpuscular Hemoglobin 29.9 pg (27.0-33.0); Mean Corpuscular Volume 95.7 fL (80-98); Mean Platelet Volume 12.6 fL (9.4-12.3); Monocytes Absolute Auto 0.8 X10*3/uL (0.1-1.2); Neutrophils Absolute Auto 5.5 X10*3/uL (2.0-8.3); Neutrophils Percent Auto 78.2 % (45-73); Platelet Count 107 X10*3/uL (160-400); Red Blood Count 3.74 X10*6/uL (4.20-5.50); Red Cell Distribution Width 16.3 % (11.0-16.0); SCAN SMEAR FLAG 1
[2020-09-09 16:40] LABS: SLIDE REVIEW VERIFIED
[2020-09-09 16:53] LABS: Anion Gap 11 (12-20); Blood Urea Nitrogen 31 mg/dL (9-16); Calcium 8.7 mg/dL (8.4-10.2); Carbon Dioxide 28 mmol/L (22-29); Chloride 107 mmol/L (96-108); Estimated Glomerular Filt Rate 29; Glucose Random 117 mg/dL (60-115); Potassium 4.1 mmol/L (3.3-5.1); Sodium 142 mmol/L (135-145)
== END 2020-09-09 16:08 | disposition home or self-care (01) ==
LOC: HO.LNP 16:07
PROVIDERS: Visit Provider Internal Medicine
DX: R78.81 Bacteremia (principal)
CPT/HCPCS: 80048; 85025

== ENCOUNTER 2020-10-15 09:13 | Outpatient (REF) | payer MEDICARE, SELFPAY ==
--- NOTE | ~2020-10-15 | XR_ITS ---
EXAMINATION: BILATERAL KNEE X-RAY CLINICAL INFORMATION: Pain COMPARISON: Previous x-ray October 2017 TECHNIQUE: 3 views each knee FINDINGS: Right: Bone alignment is normal. No fracture or dislocation is seen. The bones are osteopenic. There is arthritis at the medial femoral tibial patellofemoral joints with joint space narrowing and osteophyte formation. There is a joint effusion. There may be ossified intra-articular body. There is soft tissue arterial calcification. Left: There is a left knee replacement. There may be a cystic changes of the patella. No comparison images are available. No fracture or dislocation is seen. There is a joint effusion. There is soft tissue swelling over the lower anterior knee. There is soft tissue arterial calcification. XR/XR knee standing BI IMPRESSION: Right: Arthritis Left: Left knee replacement. Question cystic changes of the patella. Joint effusion and soft tissue swelling over the lower anterior knee.
--- NOTE | ~2020-10-15 | XR_ITS ---
EXAMINATION: BILATERAL KNEE X-RAY CLINICAL INFORMATION: Pain COMPARISON: Previous x-ray October 2017 TECHNIQUE: 3 views each knee FINDINGS: Right: Bone alignment is normal. No fracture or dislocation is seen. The bones are osteopenic. There is arthritis at the medial femoral tibial patellofemoral joints with joint space narrowing and osteophyte formation. There is a joint effusion. There may be ossified intra-articular body. There is soft tissue arterial calcification. Left: There is a left knee replacement. There may be a cystic changes of the patella. No comparison images are available. No fracture or dislocation is seen. There is a joint effusion. There is soft tissue swelling over the lower anterior knee. There is soft tissue arterial calcification. XR/XR knee LT 2V IMPRESSION: Right: Arthritis Left: Left knee replacement. Question cystic changes of the patella. Joint effusion and soft tissue swelling over the lower anterior knee.
--- NOTE | ~2020-10-15 | XR_ITS ---
EXAMINATION: BILATERAL KNEE X-RAY CLINICAL INFORMATION: Pain COMPARISON: Previous x-ray October 2017 TECHNIQUE: 3 views each knee FINDINGS: Right: Bone alignment is normal. No fracture or dislocation is seen. The bones are osteopenic. There is arthritis at the medial femoral tibial patellofemoral joints with joint space narrowing and osteophyte formation. There is a joint effusion. There may be ossified intra-articular body. There is soft tissue arterial calcification. Left: There is a left knee replacement. There may be a cystic changes of the patella. No comparison images are available. No fracture or dislocation is seen. There is a joint effusion. There is soft tissue swelling over the lower anterior knee. There is soft tissue arterial calcification. XR/XR knee RT 2V IMPRESSION: Right: Arthritis Left: Left knee replacement. Question cystic changes of the patella. Joint effusion and soft tissue swelling over the lower anterior knee.
== END 2020-10-15 09:14 | disposition home or self-care (01) ==
LOC: HO.HOSX 09:13
PROVIDERS: Visit Provider Physician Assistant
DX: M17.11 Unilateral primary osteoarthritis, right knee (principal); M25.562 Pain in left knee
CPT/HCPCS: 20610; 73560; 73565; 99212; J1020

== ENCOUNTER 2020-12-10 08:14 | Outpatient (REF) | payer MEDICARE, SELFPAY ==
[2020-12-10 09:39] LABS: MANUAL DIFF FLAG NO
[2020-12-10 09:52] LABS: Basophils Percent Auto 0.6 % (0-2); Eosinophils Absolute Auto 0.1 X10*3/uL (0.0-0.4); Eosinophils Percent Auto 1.1 % (0-4); Hematocrit 35.7 % (37-47); Imm Gran Abs Auto 0.03 X10*3/uL (0.00-0.03); Imm Gran Pct Auto 0.5 % (0.0-0.4); Lymphocytes Absolute Auto 0.7 X10*3/uL (1.2-4.9); Lymphocytes Percent Auto 11.1 % (20-40); Mean Corpuscular HGB Conc 30.8 g/dl (31.0-35.0); Mean Corpuscular Hemoglobin 29.3 pg (27.0-33.0); Mean Corpuscular Volume 95.2 fL (80-98); Mean Platelet Volume 12.3 fL (9.4-12.3); Monocytes Absolute Auto 0.5 X10*3/uL (0.1-1.2); Monocytes Percent Auto 8.3 % (2-11); Neutrophils Percent Auto 78.4 % (45-73); Red Blood Count 3.75 X10*6/uL (4.20-5.50); Red Cell Distribution Width 14.5 % (11.0-16.0); White Blood Count 6.4 X10*3/uL (4.8-10.8)
[2020-12-10 10:01] LABS: Platelet Count 97 X10*3/uL (160-400)
[2020-12-10 10:05] LABS: Alanine Aminotransferase 70 U/L (0-31); Albumin Level 3.7 g/dL (3.5-5.0); Alkaline Phosphatase 82 U/L (39-117); Anion Gap 13 (12-20); Aspartate Amino Transferase 62 U/L (5-31); Bilirubin Total 0.6 mg/dL (0.0-1.0); Blood Urea Nitrogen 38 mg/dL (9-16); Calcium 9.3 mg/dL (8.4-10.2); Carbon Dioxide 25 mmol/L (22-29); Chloride 109 mmol/L (96-108); Cholesterol 129 mg/dL; Estimated Glomerular Filt Rate 27; Glucose Fasting 82 mg/dL (60-99); HDL Cholesterol 52 mg/dL; LDL Cholesterol Calculated 66 mg/dl; Potassium 4.1 mmol/L (3.3-5.1); Sodium 143 mmol/L (135-145); Total Protein 6.7 g/dL (6.5-8.0); Triglycerides 55 mg/dL
[2020-12-10 10:07] LABS: B Type Natriuretic Peptide 122 pg/mL (<100)
[2020-12-10 10:10] LABS: Anion Gap 14 (12-20); Blood Urea Nitrogen 37 mg/dL (9-16); Calcium 9.1 mg/dL (8.4-10.2); Carbon Dioxide 24 mmol/L (22-29); Chloride 109 mmol/L (96-108); Estimated Glomerular Filt Rate 27; Iron 61 mcg/dL (30-160); Percent Iron Saturation 17 % (15-50); Potassium 4.4 mmol/L (3.3-5.1); Sodium 143 mmol/L (135-145); Total Iron Binding Capacity 358 mcg/dL (228-428); Unsaturated Iron Binding 297 ug/dL
[2020-12-10 10:26] LABS: TSH reflex Free T4 2.33 uIU/mL (0.32-4.0)
[2020-12-10 11:07] LABS: Folate > 20.0 ng/mL (> or = 4.0); Vitamin B12 837 pg/mL (200-900)
[2020-12-11 14:56] LABS: Calcium (PTHI) 9.1 mg/dL (8.6-10.4); PTHI 168 pg/mL (14-64)
== END 2020-12-10 08:15 | disposition home or self-care (01) ==
LOC: HO.LAB 08:14
PROVIDERS: Absent Provider Internal Medicine; PCP Internal Medicine; Referring Provider Internal Medicine Hypertension Specialist; Visit Provider Internal Medicine
DX: I13.0 Hypertensive heart and chronic kidney disease with heart failure and stage 1 through stage 4 chronic kidney disease, or unspecified chronic kidney disease (principal); N18.4 Chronic kidney disease, stage 4 (severe); I50.30 Unspecified diastolic (congestive) heart failure; E11.22 Type 2 diabetes mellitus with diabetic chronic kidney disease; G31.84 Mild cognitive impairment of uncertain or unknown etiology; R78.81 Bacteremia; E11.42 Type 2 diabetes mellitus with diabetic polyneuropathy; I25.10 Atherosclerotic heart disease of native coronary artery without angina pectoris; I48.0 Paroxysmal atrial fibrillation; E66.9 Obesity, unspecified; E78.00 Pure hypercholesterolemia, unspecified
CPT/HCPCS: 36415; 80051; 80053; 80061; 82310; 82565; 82607; 82746; 83540; 83880; 83970; 84443; 84520; 85025; 87040

== ENCOUNTER → 2020-12-25 13:49 | Outpatient (BNVA) | payer MEDICARE, SELFPAY | PROVIDERS: PCP Internal Medicine; Visit Provider Internal Medicine | DX: J44.9 Chronic obstructive pulmonary disease, unspecified (principal); G47.34 Idiopathic sleep related nonobstructive alveolar hypoventilation; Z79.899 Other long term (current) drug therapy; Z87.891 Personal history of nicotine dependence | CPT/HCPCS: 99212 ==

== ENCOUNTER 2021-02-05 12:23 | Outpatient (REF) | payer MEDICARE, SELFPAY ==
[2021-02-05 13:59] LABS: Hematocrit 34.3 % (37-47); Hemoglobin 10.8 g/dl (12.0-16.0); Mean Corpuscular HGB Conc 31.5 g/dl (31.0-35.0); Mean Corpuscular Hemoglobin 29.8 pg (27.0-33.0); Mean Corpuscular Volume 94.8 fL (80-98); Mean Platelet Volume 12.2 fL (9.4-12.3); Platelet Count 103 X10*3/uL (160-400); Red Blood Count 3.62 X10*6/uL (4.20-5.50); Red Cell Distribution Width 14.3 % (11.0-16.0); White Blood Count 7.2 X10*3/uL (4.8-10.8)
[2021-02-05 14:18] LABS: Anion Gap 11 (12-20); Blood Urea Nitrogen 28 mg/dL (9-16); Calcium 9.5 mg/dL (8.4-10.2); Carbon Dioxide 29 mmol/L (22-29); Chloride 108 mmol/L (96-108); Estimated Glomerular Filt Rate 30; Glucose Random 76 mg/dL (60-115); Sodium 144 mmol/L (135-145)
== END 2021-02-05 12:24 | disposition home or self-care (01) ==
LOC: HO.HMGCLDS 12:23
PROVIDERS: PCP Internal Medicine; Visit Provider Physician Assistant
DX: S09.90XA Unspecified injury of head, initial encounter (principal); I10 Essential (primary) hypertension
CPT/HCPCS: 36415; 80048; 85027

== ENCOUNTER → 2021-02-25 08:16 | Outpatient (REF) | payer MEDICARE, SELFPAY ==
--- NOTE | ~2021-02-25 | CT_ITS ---
EXAMINATION: CT HEAD WITHOUT CONTRAST CLINICAL INFORMATION: Unspecified head injury COMPARISON: None TECHNIQUE: Contiguous axial imaging was performed from the skull base to vertex without intravenous administration of contrast. This CT examination was performed using dose optimization techniques as appropriate, variously including the following: *Automated exposure control *Adjustment of mA and/or kV according to patient size (this includes techniques or standardized protocols for targeted exams where dose is matched to indication/reason for exam; i.e. extremities or head) *Use of iterative reconstruction technique DLP: 614 mGy-cm FINDINGS: There is no evidence of acute intracranial hemorrhage or territorial infarction. No abnormal mass effect or midline shift is seen. Jeter to white matter differentiation is well preserved. No extra-axial fluid collections are identified. The lateral ventricles are enlarged and so are the cortical sulci. There is mild periventricular hypodensity in both cerebral hemispheres without mass effect. There is diffuse mucoperiosteal thickening right maxillary sinus. Rest of the paranasal sinuses are well-aerated. CT/CT head/brain wo con IMPRESSION: No acute intracranial process seen. Age-related cerebral volume loss.
--- NOTE | 2021-02-25 08:32 | CA_ITS ---
Transthoracic Echocardiogram Patient (Last, First, Middle): Patricia York L Gender: Female Date of : 1940 Age: 80 Procedure Date: 02/25/2021 Procedure Type: Transthoracic Echocardiogram Location: OP Height: 149.86 cm Weight: 68.04 kg BSA: 1.63 m2 Heart Rate: bpm BP: 124 / 68 mmHg Cotton Weigher Operator: Referring MD: Lucia Kenny MD Agency Cashier: Henrry Hernandez MD Symptoms: S/P 1 YR TAVR Study Quality: Good ECG Rhythm: Sinus Conclusions: - 1. Normal LV systolic function with moderate LVH with impaired relaxation filling pattern 2. Bioprosthetic aortic valve place with mean gradient of 22 mm mercury, similar to post implantation 3. Severely dilated left atrium 4. Normal RV systolic pressure 5. No gross pericardial effusion Findings Left Ventricle Normal left ventricular size and systolic function. There is moderately increased left ventricular wall thickness. The visually estimated ejection fraction is between 60-65%. Spectral Doppler is indicative of an impaired relaxation filling pattern. E/E prime ratio is between 8 and 15 consistent with indeterminate filling pressures. Wall Motion Rest Echo Findings The basal inferior segment is akinetic. All other scored wall segments showed normal motion. Right Ventricle Normal right ventricular cavity size and systolic function. Atria The left atrium is severely dilated. There is no evidence of interatrial shunt. The right atrium is mildly dilated. Aortic Valve A bioprosthetic aortic valve is present. The prosthetic aortic valve appears to be functioning abnormally. Echo findings are consistent with stenosis of the aortic valve prosthesis. The aortic valve was not well visualized. The mean gradient is 22 mmHg. There is no aortic valve regurgitation. Mitral Valve There is mild anterior and moderate posterior mitral leaflet thickening. There is moderate mitral annular calcification. There is trace mitral valve regurgitation. There is no mitral valve stenosis. Pulmonic Valve The pulmonic valve was not well visualized. Tricuspid Valve Normal tricuspid valve structure. The right ventricular systolic pressure is 19 mmHg. Great Vessels All visible segments of the aorta are normal in size. The pulmonary artery was not well visualized. Venous The inferior vena cava is normal in size and collapses greater than 50% with inspiration. Pericardium/Pleural There is no evidence of pericardial effusion. Prior Study Comparison Changes noted compared to prior study. Mean gradient across the bioprosthetic aortic valve are similar to 2020 Measurements 2D Linear Measurements IVSd: 1.50 0.6-0.9/0.6-1.0 cm LVIDd: 4.65 3.9-5.3/4.2-5.9 cm LVIDd Index: 2.85 2.4-3.2/2.2-3.1 cm/m2 LVIDs: 2.93 2.0-3.6 cm LVPWd: 1.47 0.7-1.1 cm Ao Root: 2.70 2.1-3.5 cm LA Diam: 5.90 2.7-3.8/3.0-4.0 cm LAIDs Index: 3.62 1.5-2.3 cm/m2 LV Mass: 355.58 67-162/88-224 g LV Mass Index: 218.15 43-95/49-115 g/m2 LVOT Diam: 1.90 3.0+(-)1.3 cm Mitral Valve MV Pk E: 0.95 MV PK A: 1.08 MV Decel Time: 168.00 E/A: 0.90 E'Lateral: 7.62 E'Medial: 2.94 E/E' Med: 32.30 E/E' Lat: 12.50 PHT: 49.00 MVA PHT: 4.49 Decel Hendricks: 5.67 Aortic Valve AoV Pk Yovany: 3.07 AoV Mn Yovany: 2.26 AoV VTI: 0.71 AoV Pk Grad: 38.00 Aov Mn Grad: 22.00 RADHA Cont.VTI: 1.18 LVOT LVOT Pk Yovany: 1.06 LVOT Mn Yovany: 0.79 LVOT VTI: 0.29 LVOT Pk Grad: 4.00 LVOT Mn Grad: 3.00 LVOT Diam: 1.90 LVOT Area: 2.84 Diastolic Function MV Pk E: 0.95 MV Pk A: 1.08 E/A: 0.90 E'Medial: 2.94 E/E' Med: 32.30 E' Laterial: 7.62 E/E' Lat: 12.50 Tricuspid Valve TR Pk Yovany: 2.01 TR Pk Grad: 16.00 RA Press: 3.00 RVSP: 19.00 Great Vessels Aorta Ao Root-2D: 2.70 2.0-3.7 cm Pulmonary Valve PV Pk Yovany: 1.10 Peak PV Grad: 5.00 Updated in Other Vendor System with Status of Final Henrry Hernandez MD electronically signed on 02/25/2021 1:06:05 PM with status of Final
[2021-02-25 09:00] LABS: Appearance Urine HAZY; Color Urine YELLOW; Glucose Urine UA NEG (NEG); Leukocyte Esterase Urine TRACE (NEG); Nitrite Urine NEG (NEG); Specific Gravity - Urine 1.025 (1.005-1.025); UACC Culture Trigger YES; Urine Blood 1+ (NEG); Urine Ketones NEG (NEG); Urine Protein 2+ MG/DL (NEG-TRACE)
[2021-02-25 09:09] LABS: Eosinophils Absolute Auto 0.2 X10*3/uL (0.0-0.4); Eosinophils Percent Auto 2.5 % (0-4); Hemoglobin 10.5 g/dl (12.0-16.0); MANUAL DIFF FLAG SCAN; Mean Corpuscular Volume 96.3 fL (80-98); PLT CLUMP 1; Red Cell Distribution Width 14.3 % (11.0-16.0); SCAN SMEAR FLAG 1
[2021-02-25 09:11] LABS: Basophils Percent Auto 0.5 % (0-2); Hematocrit 33.8 % (37-47); Imm Gran Abs Auto 0.04 X10*3/uL (0.00-0.03); Imm Gran Pct Auto 0.6 % (0.0-0.4); Lymphocytes Absolute Auto 0.9 X10*3/uL (1.2-4.9); Lymphocytes Percent Auto 14.1 % (20-40); Mean Corpuscular HGB Conc 31.1 g/dl (31.0-35.0); Mean Corpuscular Hemoglobin 29.9 pg (27.0-33.0); Mean Platelet Volume 11.5 fL (9.4-12.3); Monocytes Absolute Auto 0.7 X10*3/uL (0.1-1.2); Monocytes Percent Auto 10.3 % (2-11); Neutrophils Absolute Auto 4.5 X10*3/uL (2.0-8.3); Red Blood Count 3.51 X10*6/uL (4.20-5.50); White Blood Count 6.3 X10*3/uL (4.8-10.8)
[2021-02-25 09:12] LABS: Platelet Count 99 X10*3/uL (160-400)
[2021-02-25 09:15] LABS: Bacteria Urine 4+ /LPF; Squamous Epithelial Cell Urine TRACE /LPF
[2021-02-25 09:18] LABS: Calcium Phosphate Crystals Ur TRACE /LPF
[2021-02-25 09:19] LABS: RBC Urine 0-2 /HPF (0)
[2021-02-25 09:27] LABS: Alanine Aminotransferase 27 U/L (0-31); Albumin Level 3.5 g/dL (3.5-5.0); Alkaline Phosphatase 70 U/L (39-117); Anion Gap 10 (12-20); Aspartate Amino Transferase 28 U/L (5-31); Bilirubin Total 0.2 mg/dL (0.0-1.0); Blood Urea Nitrogen 26 mg/dL (9-16); Calcium 9.2 mg/dL (8.4-10.2); Carbon Dioxide 30 mmol/L (22-29); Chloride 109 mmol/L (96-108); Cholesterol 121 mg/dL; Estimated Glomerular Filt Rate 31; Glucose Fasting 81 mg/dL (60-99); HDL Cholesterol 45 mg/dL; LDL Cholesterol Calculated 58 mg/dl; Potassium 4.2 mmol/L (3.3-5.1); Sodium 145 mmol/L (135-145); Total Protein 5.9 g/dL (6.5-8.0); Triglycerides 93 mg/dL
[2021-02-25 09:39] LABS: Estimated Average Glucose 88 mg/dL; Hemoglobin A1c % 4.7 %
[2021-02-25 09:48] LABS: TSH reflex Free T4 2.99 uIU/mL (0.32-4.0); Vitamin D 25-OH Total 37.7 ng/mL (>30)
[2021-02-25 09:52] LABS: Creatinine Urine 69.21 mg/dL
== END ==
LOC: HO.CARD 08:16
PROVIDERS: Absent Provider Internal Medicine Cardiovascular Disease; PCP Internal Medicine; Visit Provider Internal Medicine
DX: S09.90XA Unspecified injury of head, initial encounter (principal); I35.0 Nonrheumatic aortic (valve) stenosis; I48.0 Paroxysmal atrial fibrillation; I13.0 Hypertensive heart and chronic kidney disease with heart failure and stage 1 through stage 4 chronic kidney disease, or unspecified chronic kidney disease; E11.22 Type 2 diabetes mellitus with diabetic chronic kidney disease; N18.4 Chronic kidney disease, stage 4 (severe); I50.30 Unspecified diastolic (congestive) heart failure; D69.6 Thrombocytopenia, unspecified; D64.9 Anemia, unspecified; E78.00 Pure hypercholesterolemia, unspecified; E55.9 Vitamin D deficiency, unspecified; Z95.2 Presence of prosthetic heart valve
CPT/HCPCS: 36415; 70450; 80053; 80061; 81001; 81003; 82043; 82306; 83036; 84443; 85025; 87086; 87088; 87186; 93306

== ENCOUNTER 2021-03-24 13:00 | Outpatient (RCR) | payer MEDICARE, SELFPAY ==
[2020-04-08 09:27] VITALS: BP 175/75; PULSE 68; RESP 18; TEMP 36.7; O2SAT 97; BMI 32.2
--- NOTE | 2020-04-08 09:53 | PM.HEMONCCN ---
Subjective - Subjective Chief complaint: Anemia Consult date: 04/08/20 Primary Care Provider: Anthony Titus MD HPI - Consult Narrative Reason for consult: Anemia and thrombocytopenia Narrative: Patricia York is a 79 year old female with multiple medical problems referred for evaluation of chronic anemia and thrombocytopenia. This has been gradually progressing in the last 3-4 years. Her last hemoglobin was slightly under 9 gram/dL. Her platelet count was under 100 K. she has chronic renal insufficiency, history of recent cellulitis which is recurrent and recent urinary tract infection. She is no longer antibiotics. Her daughter was with her today and states that her mother has lost some weight in the last 10 years. Some of this is by cutting back on fatty foods. She has been told of anemia and thrombocytopenia over the years. She has never been seen by Hematology in the past. Her mother had leukemia in her 80s. Review of Systems - Constitutional Reports as per HPI, Reports no additional constitutional complaints, Denies fatigue, Denies fever(s), Denies frequent falls, Reports malaise, Denies night sweats, Denies poor appetite - Eyes Denies blurry vision - Cardiovascular Denies no additional cardiovascular complaints - Respiratory Denies no additional respiratory complaints - Gastrointestinal Denies no additional gastrointestinal complaints Oncology Screenings - ECOG Performance Status ECOG Performance Status: 2 [facility] Medical History: Medical History (Last Updated 04/08/20 @ 11:26 by Michelle Sawyer MD) Afib Anemia Anxiety Aortic valve stenosis Basal cell carcinoma Benign essential hypertension Chronic kidney disease, stage 4 (severe) CKD (chronic kidney disease), stage IV COPD (chronic obstructive pulmonary disease) Coronary artery disease Diabetic polyneuropathy associated with type 2 diabetes mellitus Melanoma Mild cognitive impairment with memory loss Obesity (BMI 30-39.9) Paroxysmal atrial fibrillation Pure hypercholesterolemia Type 2 diabetes mellitus with diabetic chronic kidney disease Family History: Family History (Last Updated 04/08/20 @ 09:44 by Fanny Jacobsen) Father Medical history unknown Mother Acute myeloid leukemia Cancer Maternal Grandmother Myocardial infarction Brother Myocardial infarction Sister Brain aneurysm Surgical History: Surgical History (Last Updated 04/08/20 @ 09:52 by Fanny Jacobsen) Aortic valve replaced History of cardiac catheterization History of colonoscopy History of eye surgery 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 (transcatheter aortic valve replacement) Smoking status: Former smoker Home Medications and Allergies Home Medications Medication Instructions Recorded Confirmed Type Spiriva with HandiHaler 1 cap INHALATION DAILY 03/05/20 04/08/20 History acetaminophen 650 mg PO Q4H PRN 03/05/20 04/08/20 History aspirin 81 mg PO DAILY 03/05/20 04/08/20 History atorvastatin [Lipitor] 20 mg PO BEDTIME 03/05/20 04/08/20 History calcitriol 0.25 mcg PO 3XW 03/05/20 04/08/20 History cholecalciferol (vitamin D3) 2,000 unit PO DAILY 03/05/20 04/08/20 History ferrous sulfate [Feosol] 325 mg PO DAILY 03/05/20 04/08/20 History fluticasone propionate 2 puff INHALATION BID 03/05/20 04/08/20 History isosorbide mononitrate 30 mg PO DAILY 03/05/20 04/08/20 History meclizine 25 mg PO DAILY PRN 03/05/20 04/08/20 History memantine [Namenda XR] 21 mg PO DAILY 03/05/20 04/08/20 History nitroglycerin [Nitrostat] 0.3 mg SUBLINGUAL Q5M PRN 03/05/20 04/08/20 History omeprazole 20 mg PO DAILY 03/05/20 04/08/20 History pregabalin [Lyrica] 50 mg PO TID 03/05/20 04/08/20 History rivastigmine tartrate 6 mg PO BID 03/05/20 04/08/20 History sennosides [senna] 8.6 mg PO BEDTIME 03/05/20 04/08/20 History sertraline 100 mg PO DAILY 03/05/20 04/08/20 History albuterol sulfate 90 mcg/actuation 2 puff INHALATION Q6H PRN g 04/06/20 04/08/20 History aerosol inhaler Allergies Allergy/AdvReac Type Severity Reaction Status Date / Time Penicillins [PENICILLINS] Allergy Severe HIVES/SWELL Verified 04/06/20 16:53 ING Physical Exam Vital signs: Vital Signs Temp 98.1 F 04/08/20 09:27 Pulse 68 04/08/20 09:27 Resp 18 04/08/20 09:27 BP 175/75 H 04/08/20 09:27 Pulse Ox 97 04/08/20 09:27 Intake & Output 04/07/20 04/08/20 04/08/20 18:59 06:59 18:59 Other: Weight 72.4 kg Weight 72.4 kg - Constitutional Present: no acute distress Comments: Chronically ill-appearing woman. - Routine HEENT Exam Head: Present: atraumatic, normal inspection Eye: Present: EOMI - Routine Neck Exam Present: supple, full ROM. Absent: lymphadenopathy - Routine Respiratory Exam Present: CTAB - Routine Cardiovascular Exam Cardiovascular: Present: RRR, S1, S2 - Routine Abdominal Exam Present: soft. Absent: tenderness - Routine Extremities Exam Present: pedal edema. Absent: calf tenderness - Detailed Lower Extremity Exam Hip: Left erythema Hem/Onc Consult Result - Labs CBC & Chem 7: 04/08/20 11:00 Assessment and Plan (1) Bicytopenia Status: Acute This is a 79-year-old woman with multiple medical problems referred for evaluation of normocytic anemia and thrombocytopenia. This has been gradually worsening over the years. Reasons are probably multifactorial. She has chronic renal insufficiency which could be contributing to her anemia. Recurrent infections and recent antibiotic use could also cause cytopenias. Blood work does not suggest acute process such as hemolysis. She denies history of liver problems, no bleeding issues. She has no constitutional symptoms. At this time she has no symptoms to suggest acute infection, new medication or acute blood loss anemia. Other etiologies such as underlying bone marrow problem such as myelodysplastic syndrome, lymphoma and plasma cell dyscrasia was also discussed. Depending on results of hematological workup, further testing such as bone marrow biopsy will be recommended. I thank you very much for this consultation. Follow-up in 1 month.
[2020-04-08 11:52] LABS: Red Cell Distribution Width 14.9 % (11.0-16.0); Retic HGB Equivalent 29.5 pg (30.0-35.0)
[2020-04-08 11:55] LABS: Basophils Percent Auto 0.5 % (0-2); Eosinophils Absolute Auto 0.1 X10*3/uL (0.0-0.4); Hematocrit 32.6 % (37-47); Hemoglobin 9.7 g/dl (12.0-16.0); Imm Gran Abs Auto 0.03 X10*3/uL (0.00-0.03); Imm Gran Pct Auto 0.4 % (0.0-0.4); Immature Retic Fraction 9.5 % (3.0-15.9); Lymphocytes Absolute Auto 0.8 X10*3/uL (1.2-4.9); Lymphocytes Percent Auto 10.8 % (20-40); Mean Corpuscular HGB Conc 29.8 g/dl (31.0-35.0); Mean Corpuscular Volume 97.6 fL (80-98); Mean Platelet Volume 12.5 fL (9.4-12.3); Monocytes Absolute Auto 0.7 X10*3/uL (0.1-1.2); Monocytes Percent Auto 9.5 % (2-11); Neutrophils Absolute Auto 5.7 X10*3/uL (2.0-8.3); Neutrophils Percent Auto 77.8 % (45-73); Red Blood Count 3.34 X10*6/uL (4.20-5.50); Reticulocyte Percent 2.1 % (0.5-1.8); Reticulocytes Absolute 0.071 X10*6/uL (0.026-0.095); White Blood Count 7.3 X10*3/uL (4.8-10.8)
[2020-04-08 11:58] LABS: Platelet Count 89 X10*3/uL (160-400)
[2020-04-08 12:40] LABS: Iron 26 mcg/dL (30-160); Lactate Dehydrogenase 294 U/L (122-220); Percent Iron Saturation 7 % (15-50); Total Iron Binding Capacity 356 mcg/dL (228-428); Unsaturated Iron Binding 330 ug/dL
[2020-04-08 12:49] LABS: Ferritin 46 ng/mL (10-250)
[2020-04-10 15:11] LABS: Prot Elec - Albumin 3.4 g/dL (3.8-4.8); Prot Elec - Alpha1 0.4 g/dL (0.2-0.3); Prot Elec - Alpha2 0.6 g/dL (0.5-0.9); Prot Elec - Beta 1 0.4 g/dL (0.4-0.6); Prot Elec - Beta 2 0.3 g/dL (0.2-0.5); Prot Elec - Gamma 0.9 g/dL (0.8-1.7); Prot Elec - Total Protein 5.9 g/dL (6.1-8.1)
[2020-04-14 13:32] LABS: IgA 240 mg/dL (70-320); IgG 987 mg/dL (600-1540); IgM 87 mg/dL (50-300)
[2020-05-19 11:27] VITALS: BMI 32.3
[2020-05-19 11:29] VITALS: BP 129/59; PULSE 69; RESP 18; TEMP 36.5; O2SAT 92
--- NOTE | 2020-05-19 11:47 | P.PNHO_ITS ---
Medical Summary - Medical Summary Date of Service: 05/19/20 Chief complaint: Follow-up Medical Summary: Diagnosis: chronic anemia and thrombocytopenia. Her last hemoglobin was slightly under 9 gram/dL. Her platelet count was under 100 K. she has chronic renal insufficiency, recurrent cellulitis and UTIs. Hematological workup in April 2020 showed iron deficiency anemia, normal serum protein electrophoresis/immunofixation, normal vitamin B12 and folate levels. Interval History Interval history: Patient is here in follow-up, she is accompanied by her daughter today. She offers no new complaints but the daughter says she is feeling about the same. She denies any history of fever, chills, excess fatigue, loss of appetite or weight loss. She is taking iron tablets once or twice a day but no orange juice or vitamin-C. Review of Systems - Constitutional Reports as per HPI, Reports no additional constitutional complaints - Cardiovascular Reports no additional cardiovascular complaints - Respiratory Reports no additional respiratory complaints - Gastrointestinal Reports no additional gastrointestinal complaints - Neurologic Denies frequent falls [facility] Medical History: Medical History (Last Updated 05/19/20 @ 12:08 by Tania Nogueira RN) (HFpEF) heart failure with preserved ejection fraction Afib Anemia Anxiety Aortic valve stenosis Basal cell carcinoma Benign essential hypertension Chronic kidney disease, stage 4 (severe) COPD (chronic obstructive pulmonary disease) Diabetic polyneuropathy Fracture Melanoma Mild cognitive impairment with memory loss Obesity (BMI 30-39.9) Paroxysmal atrial fibrillation Pure hypercholesterolemia Thrombocytopenia Type 2 diabetes mellitus with diabetic chronic kidney disease Family History: Family History (Last Reviewed 05/11/20 @ 04:45 by Anthony Titus MD) Father Medical history unknown Mother Acute myeloid leukemia Cancer Maternal Grandmother Myocardial infarction Brother Myocardial infarction Sister Brain aneurysm Surgical History: Surgical History (Last Reviewed 05/11/20 @ 04:45 by Anthony Titus MD) History of cardiac catheterization History of colonoscopy History of eye surgery 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) Stented coronary artery Smoking status: Former smoker Oncology Screenings - ECOG Performance Status ECOG Performance Status: 2 Home Medications and Allergies Home Medications Medication Instructions Recorded Confirmed Type acetaminophen 650 mg PO Q4H PRN 03/05/20 05/19/20 History atorvastatin [Lipitor] 20 mg PO BEDTIME 03/05/20 05/19/20 History calcitriol 0.25 mcg PO 3XW 03/05/20 05/19/20 History cholecalciferol (vitamin D3) 2,000 unit PO DAILY 03/05/20 05/19/20 History ferrous sulfate [Feosol] 325 mg PO DAILY 03/05/20 05/19/20 History fluticasone propionate 2 puff INHALATION BID 03/05/20 05/19/20 History memantine [Namenda XR] 21 mg PO DAILY 03/05/20 05/19/20 History nitroglycerin [Nitrostat] 0.4 mg SUBLINGUAL Q5M PRN 03/05/20 05/19/20 History rivastigmine tartrate 6 mg PO BID 03/05/20 05/19/20 History sennosides [senna] 8.6 mg PO BEDTIME 03/05/20 05/19/20 History sertraline 100 mg PO DAILY 03/05/20 05/19/20 History albuterol sulfate 90 mcg/actuation 2 puff INHALATION Q6H PRN g 04/06/20 05/19/20 History aerosol inhaler apixaban 2.5 mg tablet 2.5 mg PO BID 04/23/20 05/19/20 History aspirin 81 mg tablet,delayed 81 mg PO DAILY 04/23/20 05/19/20 History release amlodipine 5 mg tablet 5 mg PO DAILY 05/09/20 05/19/20 History nitrofurantoin macrocrystal 100 mg 100 mg PO DAILY 05/09/20 05/19/20 History capsule meclizine 25 mg PO BID 05/19/20 05/19/20 History Allergies Allergy/AdvReac Type Severity Reaction Status Date / Time Penicillins [PENICILLINS] Allergy Severe HIVES/SWELL Verified 05/11/20 04:41 ING Exam Vital signs: Vital Signs Temp 97.7 F 05/19/20 11:29 Pulse 69 05/19/20 11:29 Resp 18 05/19/20 11:29 BP 129/59 L 05/19/20 11:29 Pulse Ox 92 05/19/20 11:29 Intake & Output 05/18/20 05/19/20 05/19/20 18:59 06:59 18:59 Other: Weight 72.5 kg Weight 72.5 kg Body Mass Index 32.3 - Constitutional Present: no acute distress - Routine HEENT Exam Head: Present: atraumatic, normal inspection - Routine Respiratory Exam Present: CTAB - Routine Cardiovascular Exam Cardiovascular: Present: RRR, S1, S2 - Routine Abdominal Exam Present: soft. Absent: tenderness - Routine Extremities Exam Present: pedal edema. Absent: calf tenderness - Detailed Lower Extremity Exam Hip: Left erythema Data - Labs CBC & Chem 7: 05/19/20 12:10 Labs: 04/08/20 11:00 Complete Blood Count Auto Diff Routine Ferritin Routine IRON PROFILE Routine Immunofixation Pnl, Serum Routine Lactate Dehydrogenase Routine Protein Electrophoresis, Serum Routine Reticulocyte Count Routine Laboratory Last Values WBC 7.3 X10*3/uL (4.8-10.8) 04/08/20 11:00 RBC 3.34 X10*6/uL (4.20-5.50) L 04/08/20 11:00 Hgb 9.7 g/dl (12.0-16.0) L 04/08/20 11:00 Hct 32.6 % (37-47) L 04/08/20 11:00 MCV 97.6 fL (80-98) 04/08/20 11:00 MCH 29.0 pg (27.0-33.0) 04/08/20 11:00 MCHC 29.8 g/dl (31.0-35.0) L 04/08/20 11:00 RDW 14.9 % (11.0-16.0) 04/08/20 11:00 Plt Count 89 X10*3/uL (160-400) L 04/08/20 11:00 MPV 12.5 fL (9.4-12.3) H 04/08/20 11:00 Immature Gran % (Auto) 0.4 % (0.0-0.4) 04/08/20 11:00 Neut % (Auto) 77.8 % (45-73) H 04/08/20 11:00 Lymph % (Auto) 10.8 % (20-40) L 04/08/20 11:00 [place] % (Auto) 9.5 % (2-11) 04/08/20 11:00 Eos % (Auto) 1.0 % (0-4) 04/08/20 11:00 Baso % (Auto) 0.5 % (0-2) 04/08/20 11:00 Lymph # (Auto) 0.8 X10*3/uL (1.2-4.9) L 04/08/20 11:00 [place] # (Auto) 0.7 X10*3/uL (0.1-1.2) 04/08/20 11:00 Eos # (Auto) 0.1 X10*3/uL (0.0-0.4) 04/08/20 11:00 Baso # (Auto) 0.0 X10*3/uL (0.0-0.2) 04/08/20 11:00 Abs Immat Gran (auto) 0.03 X10*3/uL (0.00-0.03) 04/08/20 11:00 Absolute Neuts (auto) 5.7 X10*3/uL (2.0-8.3) 04/08/20 11:00 Absolute Nucleated RBC 0.000 X10*3/uL (0.0-0.012) 04/08/20 11:00 Nucleated RBC % (auto) 0.0 /100WBC (0.0-0.2) 04/08/20 11:00 Absolute Retic 0.071 X10*6/uL (0.026-0.095) 04/08/20 11:00 Percent Retic 2.1 % (0.5-1.8) H 04/08/20 11:00 Immature Retic Fraction 9.5 % (3.0-15.9) 04/08/20 11:00 Retic Hgb Equivalent 29.5 pg (30.0-35.0) L 04/08/20 11:00 Iron 26 mcg/dL (30-160) L 04/08/20 11:00 TIBC 356 mcg/dL (228-428) 04/08/20 11:00 % Saturation 7 % (15-50) L 04/08/20 11:00 Unsat Iron Binding 330 ug/dL 04/08/20 11:00 Ferritin 46 ng/mL (10-250) 04/08/20 11:00 Lactate Dehydrogenase 294 U/L (122-220) H 04/08/20 11:00 Total Protein (PEP) 5.9 g/dL (6.1-8.1) L 04/08/20 11:00 Albumin (PEP) 3.4 g/dL (3.8-4.8) L 04/08/20 11:00 Hccqy-5-Liegugmbf 0.4 g/dL (0.2-0.3) H 04/08/20 11:00 Lrwvq-9-Hkfglxvzo 0.6 g/dL (0.5-0.9) 04/08/20 11:00 Pbnf-2-Pluplyam 0.4 g/dL (0.4-0.6) 04/08/20 11:00 Kiwy-4-Iqwvtlkw 0.3 g/dL (0.2-0.5) 04/08/20 11:00 Gamma Globulins 0.9 g/dL (0.8-1.7) 04/08/20 11:00 Abnorm Protein Band 1 TNP 04/08/20 11:00 Abnorm Protein Band 2 TNP 04/08/20 11:00 Abnorm Protein Band 3 TNP 04/08/20 11:00 PEP Interpretation SEE NOTE 04/08/20 11:00 IgG Total 987 mg/dL (600-1540) 04/08/20 11:00 IgA Total 240 mg/dL (70-320) 04/08/20 11:00 IgM 87 mg/dL (50-300) 04/08/20 11:00 DORINA Interpretation SEE NOTE 04/08/20 11:00 Progress Note: A/P (1) Bicytopenia Status: Chronic Assessment and plan: This is a 79-year-old woman with multiple medical problems referred for evaluation of normocytic anemia and thrombocytopenia. This has been gradually worsening over the years. Reasons are probably multifactorial. She has chronic renal insufficiency which could be contributing to her anemia. Recurrent infections and recent antibiotic use could also cause cytopenias. Her anemia has improved slightly. She remains iron deficient. I have asked her to increase iron supplementation to twice a day, take vitamin-C or orange juice to help absorption. Follow-up in 3 months.. - Time Spent With Patient Total time spent is greater than 50% in coordination of care (as documented) at patient's floor/unit and/or counseling patient: 15 - 24 minutes
[2020-05-19 12:19] LABS: MANUAL DIFF FLAG NO
[2020-05-19 12:31] LABS: Basophils Percent Auto 0.6 % (0-2); Eosinophils Absolute Auto 0.1 X10*3/uL (0.0-0.4); Eosinophils Percent Auto 1.5 % (0-4); Hemoglobin 10.3 g/dl (12.0-16.0); Imm Gran Abs Auto 0.03 X10*3/uL (0.00-0.03); Imm Gran Pct Auto 0.5 % (0.0-0.4); Lymphocytes Absolute Auto 0.8 X10*3/uL (1.2-4.9); Lymphocytes Percent Auto 12.6 % (20-40); Mean Corpuscular HGB Conc 30.3 g/dl (31.0-35.0); Mean Corpuscular Hemoglobin 28.3 pg (27.0-33.0); Mean Corpuscular Volume 93.4 fL (80-98); Mean Platelet Volume 12.8 fL (9.4-12.3); Monocytes Absolute Auto 0.7 X10*3/uL (0.1-1.2); Monocytes Percent Auto 10.6 % (2-11); Neutrophils Absolute Auto 4.9 X10*3/uL (2.0-8.3); Neutrophils Percent Auto 74.2 % (45-73); Platelet Count 123 X10*3/uL (160-400); Red Blood Count 3.64 X10*6/uL (4.20-5.50); Red Cell Distribution Width 14.2 % (11.0-16.0); White Blood Count 6.5 X10*3/uL (4.8-10.8)
--- NOTE | 2020-05-19 12:32 | MHC.HEMONC ---
Labs drawn. Summary updated. Will call with labs.
[2020-05-19 12:50] LABS: Iron 28 mcg/dL (30-160); Percent Iron Saturation 8 % (15-50); Total Iron Binding Capacity 361 mcg/dL (228-428); Unsaturated Iron Binding 333 ug/dL
--- NOTE | 2020-05-19 13:57 | MHC.HEMONCMA ---
Called and spoke with patients daughter Lakshmi. Dr Sawyer stated that her blood work came back that her iron level is coming up, but she wants her to start taking it BID and with orange juice. Lakshmi states that her mother has a follow up in 4 months and will have her start taking the iron twice a day. They agree and understand the plan.
--- NOTE | 2020-09-17 10:57 | PM.HEMONCPN ---
Medical Summary - Medical Summary Date of Service: 09/17/20 Chief complaint: Follow-up Medical Summary: Diagnosis: chronic anemia and thrombocytopenia. Her last hemoglobin was slightly under 9 gram/dL. Her platelet count was under 100 K. she has chronic renal insufficiency, recurrent cellulitis and UTIs. Hematological workup in April 2020 showed iron deficiency anemia, normal serum protein electrophoresis/immunofixation, normal vitamin B12 and folate levels. Interval History Interval history: Patient is here in follow-up. She is accompanied by her daughter today. In August she was admitted to the hospital after a fall, she was found to have a hematoma of the right medial thigh. She was also treated for bacteremia. She is home now. Overall she is better but still a bit weak. Her swelling in her right thigh has gone down significantly. She denies any fever or chills. She had her blood work tested a week ago. She denies any chest pain, shortness of breath or abdominal pain at this time. Review of Systems - Constitutional Reports as per HPI, Reports no additional constitutional complaints - Cardiovascular Reports no additional cardiovascular complaints - Respiratory Reports no additional respiratory complaints - Gastrointestinal Reports no additional gastrointestinal complaints - Genitourinary Reports no additional female genitourinary complaints - Neurologic Denies frequent falls [facility] Medical History: Medical History (Last Reviewed 09/08/20 @ 12:57 by Anthony Titus MD) (HFpEF) heart failure with preserved ejection fraction Acute blood loss anemia Afib Anemia Anxiety Aortic valve stenosis Asthma Bacteremia Bacteremia Bacteremia Basal cell carcinoma Benign essential hypertension Chronic kidney disease, stage 4 (severe) COPD (chronic obstructive pulmonary disease) Diabetic polyneuropathy Fracture Gallstones Hospital discharge follow-up Hypernatremia Melanoma Mild cognitive impairment with memory loss Obesity (BMI 30-39.9) Paroxysmal atrial fibrillation Pure hypercholesterolemia Thrombocytopenia Type 2 diabetes mellitus with diabetic chronic kidney disease Family History: Family History (Last Reviewed 09/08/20 @ 12:09 by Anthony Titus MD) Father Medical history unknown Mother Acute myeloid leukemia Cancer Maternal Grandmother Myocardial infarction Brother Myocardial infarction Sister Brain aneurysm Surgical History: Surgical History (Last Reviewed 09/08/20 @ 12:09 by Anthony Titus MD) History of cardiac catheterization History of colonoscopy History of eye surgery 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) Stented coronary artery Social History: Social History (Last Reviewed 09/08/20 @ 12:09 by Anthony Titus MD) Living Situation History: Household Members: Spouse Household Members: Family Housing: House Are you a primary wound care specialist to a significant other at home: No Alcohol History: Alcohol intake: never Alcohol History Details: Alcohol intake frequency: holiday/special occasion Tobacco History: Smoking Status: Former smoker Tobacco Type: Cigarette Packs Per Day: 0.5 Years Smoked: 19 Smoked in Last 30 Days: No Smoking Quit Date: 06/1979 Substance Use History: Use of substances other than those prescribed or required for medical reasons: No Domestic Abuse History: Have you been hit, kicked, punched, or otherwise hurt by someone within the past year? If so, by whom?: No Do you feel safe in your current relationship?: Yes Healthcare Practices: Spiritual Healthcare Practices: no Anabaptism Healthcare Practices: no Cultural Healthcare Practices: no Advance Directives: Advance Directives Date on File: 07/24/20 Nutrition Assessment: Recently lost weight without trying: No Eating poorly because of decreased appetite: No Nutrition Risks: No Nutritional Risk Patient : No : No Poor oral hygiene: No Occupation Assessmet: service: No Current occupational status: retired Smoking status: Former smoker Home Medications and Allergies Home Medications Medication Instructions Recorded Confirmed Type acetaminophen 650 mg PO Q4H PRN 03/05/20 09/08/20 History calcitriol 0.25 mcg PO 3XW 03/05/20 09/08/20 History cholecalciferol (vitamin D3) 2,000 unit PO DAILY 03/05/20 09/08/20 History memantine [Namenda XR] 21 mg PO DAILY 03/05/20 09/08/20 History rivastigmine tartrate 6 mg PO BID 03/05/20 09/08/20 History sennosides [senna] 8.6 mg PO BEDTIME 03/05/20 09/08/20 History sertraline 100 mg PO DAILY 03/05/20 09/08/20 History albuterol sulfate 90 mcg/actuation 2 puff INHALATION Q6H PRN g 04/06/20 09/08/20 History aerosol inhaler apixaban 2.5 mg tablet 2.5 mg PO BID 04/23/20 09/08/20 History meclizine 25 mg PO BID 05/19/20 09/08/20 History umeclidinium 62.5 mcg/actuation 1 inh INHALATION BEDTIME 06/10/20 09/17/20 History blister powder for inhalation ferrous sulfate 325 mg (65 mg 325 mg PO BID tab 07/23/20 09/17/20 History iron) tablet amlodipine 5 mg tablet 10 mg PO DAILY tab 09/03/20 09/17/20 History Allergies Allergy/AdvReac Type Severity Reaction Status Date / Time Penicillins [PENICILLINS] Allergy Severe HIVES/SWELL Verified 09/08/20 12:57 ING Exam Vital signs: Vital Signs Temp 97.7 F 05/19/20 11:29 Pulse 69 05/19/20 11:29 Resp 18 05/19/20 11:29 BP 129/59 L 05/19/20 11:29 Pulse Ox 92 05/19/20 11:29 Weight 72.5 kg Body Mass Index 32.3 - Constitutional Present: no acute distress - Routine HEENT Exam Head: Present: atraumatic, normal inspection - Routine Respiratory Exam Present: CTAB - Routine Cardiovascular Exam Cardiovascular: Present: RRR, S1, S2 - Routine Abdominal Exam Present: soft. Absent: tenderness - Routine Extremities Exam Present: pedal edema. Absent: calf tenderness - Detailed Lower Extremity Exam Hip: Left erythema Data - Labs CBC & Chem 7: 05/19/20 12:10 Labs: Laboratory Tests 09/09/20 15:00 WBC 7.0 RBC 3.74 L Hgb 11.2 L Hct 35.8 L MCV 95.7 MCH 29.9 MCHC 31.3 RDW 16.3 H Plt Count 107 L Progress Note: A/P (1) Bicytopenia Status: Chronic Assessment and plan: This is a 80-year-old woman with multiple medical problems referred for evaluation of normocytic anemia and thrombocytopenia. This has been gradually worsening over the years. Reasons are probably multifactorial. She has chronic renal insufficiency, intermittent iron deficiency which could be contributing to her anemia. Recurrent infections and recent antibiotic use could also cause cytopenias. Patient suffered a fall and developed a hematoma in August 2020. Her anemia had gone below 10 gram/dL, but has now improved and it is at its baseline. Her thrombocytopenia has also improved. She remains on Eliquis. Follow-up in 6 months. - Time Spent With Patient Total time spent is greater than 50% in coordination of care (as documented) at patient's floor/unit and/or counseling patient: 15 - 24 minutes
[2020-09-17 11:07] VITALS: BP 153/79; PULSE 63; RESP 14; TEMP 36.6; O2SAT 97; BMI 32.3
--- NOTE | 2020-09-17 14:36 | MHC.HEMONCMA ---
Patient came in for a follow up today, states that she is doing ok, just got out of the hospital. Clinical summary was reviewed and updated. Patient had labs and will return in 6 months for a follow up.
--- NOTE | 2021-03-24 13:05 | PM.HEMONCPN ---
Medical Summary - Medical Summary Date of Service: 03/24/21 Chief complaint: Follow-up Medical Summary: Diagnosis: chronic anemia and thrombocytopenia. Her last hemoglobin was slightly under 9 gram/dL. Her platelet count was under 100 K. she has chronic renal insufficiency, recurrent cellulitis and UTIs. Hematological workup in April 2020 showed iron deficiency anemia, normal serum protein electrophoresis/immunofixation, normal vitamin B12 and folate levels. Interval History Interval history: Patient is here in follow-up. She is accompanied by her daughter today. She is doing much better now, she has not had any further interim medical issues. She has been home. She is taking Eliquis 2.5 mg twice daily. She denies any fever or chills. She had her blood work tested a week ago. She denies any chest pain, shortness of breath or abdominal pain at this time. Review of Systems - Constitutional Reports as per HPI, Reports no additional constitutional complaints - Cardiovascular Reports no additional cardiovascular complaints - Respiratory Reports no additional respiratory complaints - Gastrointestinal Reports no additional gastrointestinal complaints - Neurologic Denies frequent falls [facility] Medical History: Medical History (Last Reviewed 03/18/21 @ 13:03 by Anthony Titus MD) (HFpEF) heart failure with preserved ejection fraction Acute blood loss anemia Afib Anemia Anxiety Aortic valve stenosis Asthma Bacteremia Bacteremia Bacteremia Basal cell carcinoma Benign essential hypertension Cellulitis Chronic kidney disease, stage 4 (severe) COPD (chronic obstructive pulmonary disease) Diabetic polyneuropathy Fracture Gallstones Hospital discharge follow-up Hypernatremia Melanoma Mild cognitive impairment with memory loss Nocturnal hypoxemia Obesity (BMI 30-39.9) Paroxysmal atrial fibrillation Pure hypercholesterolemia Thrombocytopenia Type 2 diabetes mellitus with diabetic chronic kidney disease Family History: Family History (Last Reviewed 03/18/21 @ 13:03 by Anthony Titus MD) Father Medical history unknown Mother Acute myeloid leukemia Cancer Maternal Grandmother Myocardial infarction Brother Myocardial infarction Sister Brain aneurysm Surgical History: Surgical History (Last Reviewed 03/18/21 @ 13:03 by Anthony Titus MD) History of cardiac catheterization History of colonoscopy History of eye surgery 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) Stented coronary artery Social History: Social History (Last Reviewed 03/18/21 @ 13:03 by Anthony Titus MD) Living Situation History: Household Members: Spouse Household Members: Family Housing: House Are you a primary childbirth and infant care teacher to a significant other at home: No Do you presently have visiting nurse or other home services: Yes Alcohol History: Alcohol intake: never Alcohol History Details: Alcohol intake frequency: holiday/special occasion Tobacco History: Patient Tobacco Use Status: Former Tobacco user Years Smoked: 19 Smoked in Last 30 Days: No Second Hand Smoke Exposure: Yes Substance Use History: Use of substances other than those prescribed or required for medical reasons: No Domestic Abuse History: Have you been hit, kicked, punched, or otherwise hurt by someone within the past year? If so, by whom?: No Do you feel safe in your current relationship?: Yes Healthcare Practices: Spiritual Healthcare Practices: no Islam Healthcare Practices: no Cultural Healthcare Practices: no Advance Directives: Advance Directives Date on File: 07/24/20 Nutrition Assessment: Recently lost weight without trying: No Eating poorly because of decreased appetite: No Nutrition Risks: No Nutritional Risk Patient : No : No Poor oral hygiene: No Occupation Assessmet: service: No Current occupational status: retired Home Medications and Allergies Home Medications Medication Instructions Recorded Confirmed Type acetaminophen 650 mg tablet 650 mg PO Q4H PRN 03/05/20 03/24/21 History cholecalciferol (vitamin D3) 50 2,000 unit PO DAILY 03/05/20 03/24/21 History mcg (2,000 unit) capsule memantine 21 mg capsule 21 mg PO DAILY 03/05/20 03/24/21 History sprinkle,extended release 24hr (Namenda XR) rivastigmine tartrate 6 mg capsule 6 mg PO BID 03/05/20 03/24/21 History albuterol sulfate 90 mcg/actuation 2 puff INHALATION Q6H PRN g 04/06/20 03/24/21 History aerosol inhaler (ProAir HFA) meclizine 12.5 mg tablet 25 mg PO NEEDED 05/19/20 03/24/21 History umeclidinium 62.5 mcg/actuation 1 inh INHALATION BEDTIME 06/10/20 03/24/21 History blister powder for inhalation (Incruse Ellipta) amlodipine 5 mg tablet 10 mg PO DAILY tab 09/03/20 03/24/21 History Allergies Allergy/AdvReac Type Severity Reaction Status Date / Time Penicillins [PENICILLINS] Allergy Severe HIVES/SWELL Verified 03/18/21 12:55 ING Exam Vital signs: Vital Signs Temp 97.8 F 09/17/20 11:07 Pulse 63 09/17/20 11:07 Resp 14 09/17/20 11:07 BP 153/79 H 09/17/20 11:07 Pulse Ox 97 09/17/20 11:07 Weight 72.6 kg Body Mass Index 32.3 - Constitutional Present: no acute distress - Routine HEENT Exam Head: Present: atraumatic, normal inspection - Routine Respiratory Exam Present: CTAB - Routine Cardiovascular Exam Cardiovascular: Present: RRR, S1, S2 - Routine Abdominal Exam Present: soft. Absent: tenderness - Routine Extremities Exam Present: pedal edema. Absent: calf tenderness - Detailed Lower Extremity Exam Hip: Left erythema Data - Labs CBC & Chem 7: 05/19/20 12:10 Labs: Laboratory Tests 09/09/20 15:00 WBC 7.0 RBC 3.74 L Hgb 11.2 L Hct 35.8 L MCV 95.7 MCH 29.9 MCHC 31.3 RDW 16.3 H Plt Count 107 L Assessment and Plan Patient Active problem list reviewed?: Yes (1) Bicytopenia Status: Chronic Assessment and plan: This is a 80-year-old woman with multiple medical problems referred for evaluation of normocytic anemia and thrombocytopenia. This has been gradually worsening over the years. Reasons are probably multifactorial. She has chronic renal insufficiency, intermittent iron deficiency which could be contributing to her anemia. Recurrent infections and recent antibiotic use could also cause cytopenias. Patient suffered a fall and developed a hematoma in August 2020. Her anemia had gone below 10 gram/dL, but has now improved and it is at its baseline. She remains on Eliquis. Blood work from February 2021 shows stable CBC with hemoglobin of 10.5 gram/dL. She is on ferrous sulfate 325 mg p.o. b.i.d.. Follow-up in 6 months. - Time Spent With Patient Time Spent with Patient (in minutes): 15
[2021-03-24 13:19] VITALS: BP 172/70; PULSE 55; RESP 18; TEMP 36.5; O2SAT 97; BMI 30.8
--- NOTE | 2021-03-24 13:29 | MHC.HEMONC ---
Pt here for Hem follow up with Dr Sawyer. Pt states she feels well today. Pt's daughter present. BP initially 199/81, repeated with manual cuff 172/70. Pt states she did not take her antihypertensive medication today. Clinical summary updated by nurse. No labs drawn today. Dr Sawyer into to see pt. Discharge packet given. Follow up appointment scheduled for 6 months
== END 2021-10-08 | disposition home or self-care (01) ==
LOC: HO.ONC 13:00
PROVIDERS: PCP Internal Medicine; Visit Provider Internal Medicine
DX: D64.9 Anemia, unspecified (principal); D69.6 Thrombocytopenia, unspecified; N18.9 Chronic kidney disease, unspecified; I48.91 Unspecified atrial fibrillation; Z79.01 Long term (current) use of anticoagulants; Z79.899 Other long term (current) drug therapy
CPT/HCPCS: 36415; 82728; 82784; 83540; 83615; 84155; 84165; 85025; 85045; 86334; 86850; 99204; 99213; 99214

== ENCOUNTER 2021-04-27 11:24 | Outpatient (REF) | payer MEDICARE, SELFPAY ==
[2021-04-27 12:17] LABS: Anion Gap 14 (12-20); Blood Urea Nitrogen 28 mg/dL (9-16); Calcium 9.4 mg/dL (8.4-10.2); Carbon Dioxide 31 mmol/L (22-29); Chloride 105 mmol/L (96-108); Estimated Glomerular Filt Rate 26; Glucose Random 107 mg/dL (60-115); Potassium 4.6 mmol/L (3.3-5.1); Sodium 145 mmol/L (135-145)
== END 2021-04-27 11:25 | disposition home or self-care (01) ==
LOC: HO.LAB 11:24
PROVIDERS: PCP Internal Medicine; Visit Provider Internal Medicine Hypertension Specialist
DX: N18.4 Chronic kidney disease, stage 4 (severe) (principal)
CPT/HCPCS: 36415; 80048

== ENCOUNTER → 2021-05-12 12:26 | Outpatient (BNVA) | payer MEDICARE, SELFPAY | PROVIDERS: PCP Internal Medicine; Referring Provider Internal Medicine; Visit Provider Internal Medicine Cardiovascular Disease | DX: I50.30 Unspecified diastolic (congestive) heart failure (principal); I48.0 Paroxysmal atrial fibrillation; I25.10 Atherosclerotic heart disease of native coronary artery without angina pectoris; Z95.2 Presence of prosthetic heart valve | CPT/HCPCS: 93005; 99212 ==

== ENCOUNTER 2021-05-23 13:29 | Emergency (ER) | payer MEDICARE, SELFPAY ==
--- NOTE | ~2021-05-23 | CT_ITS ---
EXAMINATION: CT HEAD WITHOUT CONTRAST CLINICAL INFORMATION: Head injury COMPARISON: CT head 02/25/2021 TECHNIQUE: Contiguous axial imaging was performed from the skull base to vertex without intravenous administration of contrast. This CT examination was performed using dose optimization techniques as appropriate, variously including the following: *Automated exposure control *Adjustment of mA and/or kV according to patient size (this includes techniques or standardized protocols for targeted exams where dose is matched to indication/reason for exam; i.e. extremities or head) *Use of iterative reconstruction technique DLP: 637 mGy-cm FINDINGS: There is no evidence of acute intracranial hemorrhage or territorial infarction. No abnormal mass effect or midline shift is seen. Jeter to white matter differentiation is well preserved. No extra-axial fluid collections are identified. Proportional sulcal and ventricular prominence, similar to previous, from moderate cerebral volume loss. Mild periventricular and deep white matter hypodensities suggestive of chronic microangiopathic changes. No acute calvarial fracture. There is soft tissue swelling and scalp hematoma in the occipital region. Near-complete opacification of the right maxillary sinus. Remainder of the paranasal sinuses and mastoid air cells are well aerated. CT/CT head/brain wo con IMPRESSION: No CT evidence of acute intracranial findings. Right maxillary sinus disease.
[2021-05-23 13:46] VITALS: BP 144/59; PULSE 71; RESP 19; TEMP 36.6; O2SAT 95; BMI 30.2
--- NOTE | 2021-05-23 18:48 | ED_ITS ---
HPI - Head Injury General Chief complaint: Head Injury Stated complaint: fall Time Seen by Provider: 05/23/21 18:41 Source: patient Mode of arrival: ambulatory Limitations: no limitations History of Present Illness HPI Narrative: Patient comes to the emergency room accompanied by her son. Earlier this afternoon, patient was taking a shower, patient slipped in the bathtub, fell out of the bathtub hitting her head. Patient did not lose consciousness, patient had a small abrasion that was bleeding but resolved with pressure and a Band-Aid. Patient's son states that the patient was supposed to wait for help to get out of the bathtub, but the patient got in patient of waiting and she decided to try doing it herself. Initially, patient complained of a headache, states that she did not take any medication now the headache is completely gone. Patient denies any neck pain, no shoulder pain, no lower back pain no hip pain. Patient is known to take Eliquis for atrial fibrillation Related Data Home Medications Medication Instructions Recorded Confirmed acetaminophen 650 mg tablet 650 mg PO Q4H PRN 03/05/20 05/12/21 cholecalciferol (vitamin D3) 50 2,000 unit PO DAILY 03/05/20 05/12/21 mcg (2,000 unit) capsule memantine 21 mg capsule 21 mg PO DAILY 03/05/20 05/12/21 sprinkle,extended release 24hr (Namenda XR) albuterol sulfate 90 mcg/actuation 2 puff INHALATION Q6H PRN g 04/06/20 05/12/21 aerosol inhaler (ProAir HFA) meclizine 12.5 mg tablet 25 mg PO NEEDED 05/19/20 05/12/21 umeclidinium 62.5 mcg/actuation 1 inh INHALATION BEDTIME 06/10/20 05/12/21 blister powder for inhalation (Incruse Ellipta) amlodipine 5 mg tablet 10 mg PO DAILY tab 09/03/20 05/12/21 nystatin 100,000 unit/gram topical 1 appl TOPICAL BID 05/08/21 05/12/21 powder rivastigmine tartrate 6 mg capsule 6 mg PO BID 05/12/21 05/12/21 Previous Rx's Medication Instructions Recorded hydralazine 100 mg tablet 100 mg PO BID #180 tab 08/15/20 nitroglycerin 0.4 mg sublingual 0.4 mg SUBLINGUAL Q5M PRN 30 Days 09/08/20 tablet #30 tab ferrous sulfate 325 mg (65 mg 325 mg PO DAILY #90 tab 11/29/20 iron) tablet apixaban 2.5 mg tablet (Eliquis) 2.5 mg PO BID #180 tab 12/03/20 amiodarone 200 mg tablet 200 mg PO DAILY 90 Days #90 tab 12/10/20 atorvastatin 20 mg tablet 20 mg PO DAILY #90 tab 03/18/21 calcitriol 0.25 mcg capsule 0.25 mcg PO 3XW 90 Days #39 cap 03/18/21 nitrofurantoin macrocrystal 100 mg 100 mg PO DAILY 30 Days #30 cap 03/18/21 capsule omeprazole 20 mg capsule,delayed 20 mg PO DAILY #90 cap 03/18/21 release pregabalin 50 mg capsule 50 mg PO TID 90 Days #270 cap 03/18/21 isosorbide mononitrate 30 mg 30 mg PO DAILY #90 tab 04/01/21 tablet,extended release 24 hr sertraline 100 mg tablet 100 mg PO DAILY #90 tab 04/27/21 Allergies Allergy/AdvReac Type Severity Reaction Status Date / Time Penicillins [PENICILLINS] Allergy Severe HIVES/SWELL Verified 03/18/21 12:55 ING Review of Systems Review of Systems: Constitutional : No Weight loss, No Fever, No Chills, No Night Sweats, No Fatigue, No Malaise ENT/Mouth : No Hearing loss, No Ear Pain, No Nasal Congestion, No Sinus Pain, No Hoarseness, No sore throat, No Rhinorrhea, No Swallowing Difficulty Eyes: No Eye Pain, No Swelling, No Redness, No Foreign Body, No Discharge, No Vision Changes Cardiovascular : No Chest Pain, No SOB, No Dyspnea on Exertion, No Orthopnea, No Edema, No Palpitations Respiratory : No Cough, No Sputum, No Wheezing, No Smoke Exposure, No Dyspnea Gastrointestinal : No Nausea, No Vomiting, No Diarrhea, No Constipation, No ab dominal Pain, No Hematochezia, No Melena Genitourinary : no irregular bleeding, No Dysuria, No Urinary Frequency, No Hematuria, No Urinary Incontinence, No Urgency, No Flank Pain, No Urinary Flow Changes, No Hesitancy Musculoskeletal : No joint pain, No Myalgias, No Joint Swelling Skin : Small laceration/abrasion to the back of the scalp Neuro : No Weakness, No Numbness, No Paresthesias, No Loss of Consciousness, No Dizziness, No Headache Psych : No Anxiety/Panic, No Depression, No SI/HI/AH/VH, No Social Issues, Heme/Lymph: No Bruising, No Bleeding,No Lymphadenopathy Endocrine : No Polyuria, No Polydipsia, No Temperature Intolerance [facility] Past Medical History Medical History (HFpEF) heart failure with preserved ejection fraction Acute blood loss anemia Afib Anemia Anxiety Aortic valve stenosis Asthma Bacteremia Bacteremia Bacteremia Basal cell carcinoma Benign essential hypertension Cellulitis Chronic kidney disease, stage 4 (severe) COPD (chronic obstructive pulmonary disease) Diabetic polyneuropathy Fracture Gallstones Hospital discharge follow-up Hypernatremia Melanoma Mild cognitive impairment with memory loss Nocturnal hypoxemia Obesity (BMI 30-39.9) Paroxysmal atrial fibrillation Pure hypercholesterolemia Thrombocytopenia Type 2 diabetes mellitus with diabetic chronic kidney disease Surgical History History of cardiac catheterization History of colonoscopy History of eye surgery 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) Stented coronary artery Family History Family History Father Medical history unknown Mother Acute myeloid leukemia Cancer Maternal Grandmother Myocardial infarction Brother Myocardial infarction Sister Brain aneurysm Social History Social History Household Members: Spouse and Family Housing: House Are you a primary caretaker resort to a significant other at home: No Do you presently have visiting nurse or other home services: Yes Alcohol intake: never Patient Tobacco Use Status: Former Tobacco user Years Smoked: 19 Second Hand Smoke Exposure: Yes Advance Directives: Yes Advance Directives on File: Yes Advance Directives Date on File: 07/24/20 service: No Current occupational status: retired Physical Exam Vital Signs: Vital Signs: Last Vital Signs Temp 98 F 05/23/21 13:46 Pulse 60 05/23/21 19:06 Resp 16 05/23/21 19:06 BP 177/65 H 05/23/21 19:06 Pulse Ox 97 05/23/21 19:06 BMI result Body Mass Index 30.2 Const: Other: Appearance: Alert. Oriented X3. No acute distress. Eyes: Pupils equal, round and reactive to light. ENT: Pharynx normal. Neck: Normal inspection. Neck supple. No lymph nodes noted. No crepitus, no C- spine tenderness, no neck pain with flexion and extension, normal range of troy on CVS: Normal heart rate and rhythm. Pulses normal. Normal S1 and S2 Respiratory: No respiratory distress. Breath sounds normal. No Wheezing. No rales Abdomen: Soft and nontender. No rigidity. No distention. Skin: Skin warm and dry. Normal skin color. Normal skin turgor. Small ecchymosis/minute abrasion in the scalp, bleeding controlled, no sutures needed. Extremities: No lower extremity edema. No Lacerations. No Rash. Moves all extremities, normal sensation. Neuro: Oriented X 3. No motor deficit. No sensory deficit. Moving all extermities. No slurred speech. Course Course Course Narrative: Patient is asymptomatic at this time, CT scan of the head is normal. However, patient does have history of an old C2 fracture, patient states she had an accident several years ago but recovered well from it. I discussed with the patient and her son that I would like to obtain as CT scan of the neck to ensure that there are no acute pathologies. Patient and her son declined, the patient states that she feels well and has no symptoms, patient states that she would like to be discharged home without getting and cervical spine CT scan done. I discussed with the patient to follow up with the primary care physician. If she has any new symptoms, she needs to return to the emergency room. Patient agrees with plan. [facility] - Head Injury Imaging Data CT scan - head: Radiologist's impression: There is no evidence of acute intracranial hemorrhage or territorial infarction. No abnormal mass effect or midline shift is seen. Jeter to white matter differentiation is well preserved. No extra-axial fluid collections are identified. Proportional sulcal and ventricular prominence, similar to previous, from moderate cerebral volume loss. Mild periventricular and deep white matter hypodensities suggestive of chronic microangiopathic changes. No acute calvarial fracture. There is soft tissue swelling and scalp hematoma in the occipital region. Near-complete opacification of the right maxillary sinus. Remainder of the paranasal sinuses and mastoid air cells are well aerated. ? CT/CT head/brain wo con IMPRESSION: No CT evidence of acute intracranial findings. ? Right maxillary sinus disease. Discharge Plan Discharge Clinical Impression: Fall, Contusion of head Patient Disposition: Home, Self-Care Instructions: Head Injury (ED) Additional Instructions: Please follow-up with your primary care physician tomorrow. If you have any worsening or new symptoms, please return to the emergency room or call 911 Prescriptions: No Action hydralazine 100 mg tablet 100 mg PO BID Qty: 180 RF: 1 ferrous sulfate 325 mg (65 mg iron) tablet 325 mg PO DAILY Qty: 90 RF: 1 apixaban [Eliquis] 2.5 mg tablet 2.5 mg PO BID Qty: 180 RF: 1 isosorbide mononitrate 30 mg tablet extended release 24 hr 30 mg PO DAILY Qty: 90 RF: 1 sertraline 100 mg tablet 100 mg PO DAILY Qty: 90 RF: 1 nystatin 100,000 unit/gram powder 1 appl topical BID RF: 0 acetaminophen 650 mg Tablet 650 mg PO Q4H PRN (Reason: Headache) RF: 0 cholecalciferol (vitamin D3) 50 mcg (2,000 unit) Capsule 2,000 unit PO DAILY RF: 0 memantine [Namenda XR] 21 mg Capsule,Sprinkle,Er 24hr 21 mg PO DAILY RF: 0 albuterol sulfate [ProAir HFA] 90 mcg/actuation HFA aerosol inhaler 2 puff INHALATION Q6H PRN (Reason: Wheezing) RF: 0 rivastigmine tartrate 6 mg capsule 6 mg PO BID RF: 0 meclizine 12.5 mg tablet 25 mg PO NEEDED RF: 0 amlodipine 5 mg tablet 10 mg PO DAILY RF: 0 nitroglycerin 0.4 mg tablet, sublingual 0.4 mg sublingual Q5M PRN (Reason: chest pain) 30 Days Qty: 30 RF: 5 amiodarone 200 mg tablet 200 mg PO DAILY 90 Days Qty: 90 RF: 3 nitrofurantoin macrocrystal 100 mg capsule 100 mg PO DAILY 30 Days Qty: 30 RF: 2 omeprazole 20 mg capsule,delayed release(DR/EC) 20 mg PO DAILY Qty: 90 RF: 1 pregabalin 50 mg capsule 50 mg PO TID 90 Days Qty: 270 RF: 0 atorvastatin 20 mg tablet 20 mg PO DAILY Qty: 90 RF: 3 calcitriol 0.25 mcg capsule 0.25 mcg PO 3XW 90 Days Qty: 39 RF: 3 Incruse Ellipta 62.5 mcg/actuation blister with device 1 inh inhalation BEDTIME RF: 0
[2021-05-23 19:06] VITALS: BP 177/65; PULSE 60; RESP 16; O2SAT 97
== END 2021-05-23 19:23 | disposition home or self-care (01) ==
PROVIDERS: Emergency Provider Emergency Medicine; PCP Internal Medicine
DX: S00.93XA Contusion of unspecified part of head, initial encounter (principal); I13.0 Hypertensive heart and chronic kidney disease with heart failure and stage 1 through stage 4 chronic kidney disease, or unspecified chronic kidney disease; I50.30 Unspecified diastolic (congestive) heart failure; N18.4 Chronic kidney disease, stage 4 (severe); E11.22 Type 2 diabetes mellitus with diabetic chronic kidney disease; I48.0 Paroxysmal atrial fibrillation; J44.9 Chronic obstructive pulmonary disease, unspecified; Z79.01 Long term (current) use of anticoagulants; W18.2XXA Fall in (into) shower or empty bathtub, initial encounter; Y93.9 Activity, unspecified; Y92.9 Unspecified place or not applicable; Y99.9 Unspecified external cause status
CPT/HCPCS: 70450; 99284

== ENCOUNTER 2021-06-20 10:19 | Inpatient (IN) | payer MEDICARE, SELFPAY ==
--- NOTE | ~2021-06-20 | XR_ITS ---
EXAMINATION: XR CHEST CLINICAL INFORMATION: Shortness of breath COMPARISON: 03/04/2020 TECHNIQUE: Frontal view of the chest was obtained. FINDINGS: Right chest wall catheter terminates over the mid SVC. Aortic valvular hardware. Cardiac leads overlie the chest. Lung volumes are low. Increased bilateral perihilar opacities. No pleural effusion or pneumothorax. The cardiomediastinal silhouette is unchanged. XR/XR chest 1V IMPRESSION: Increased perihilar opacities could be associated with edema or infectious/inflammatory process.
--- NOTE | ~2021-06-20 | XR_ITS ---
EXAMINATION: XR CHEST CLINICAL INFORMATION: CHF COMPARISON: CT chest 06/29/2021 TECHNIQUE: Frontal view of the chest was obtained. FINDINGS: Enlarged cardiomediastinal silhouette. Status post TAVR. Small left and trace right layering pleural effusions with adjacent atelectasis. No dense consolidation. No pneumothorax. Right IJ approach Rob catheter with tip over the SVC. XR/XR chest 1V IMPRESSION: Enlarged heart with small left and trace right pleural effusions with adjacent atelectasis.
--- NOTE | ~2021-06-20 | CT_ITS ---
EXAMINATION: CT HEAD WITHOUT CONTRAST CLINICAL INFORMATION: Headache COMPARISON: Previous head CT most recent 06/20/2021 TECHNIQUE: Contiguous axial imaging was performed from the skull base to vertex without intravenous administration of contrast. This CT examination was performed using dose optimization techniques as appropriate, variously including the following: *Automated exposure control *Adjustment of mA and/or kV according to patient size (this includes techniques or standardized protocols for targeted exams where dose is matched to indication/reason for exam; i.e. extremities or head) *Use of iterative reconstruction technique DLP: 622 mGy-cm FINDINGS: There is no evidence of an extra-axial collection. There is no evidence of intra-axial or extra-axial hemorrhage. The ventricles and extra-axial CSF spaces are prominent suggestive of mild generalized atrophy. There is nonspecific periventricular white matter disease. No mass, mass effect or acute infarct is seen. There is a nondisplaced left parietal bone fracture is difficult to visualize. This may be seen coronal reconstructed image 147 and sagittal reconstructed image 62.. There is interval decrease in soft tissue swelling over the posterior skull. No other fracture is seen. There is complete opacification of the right maxillary sinus. This is heterogeneous in attenuation with central high attenuation suggestive of a chronic infection. There is partial soft tissue opacification in the bilateral ethmoid and bilateral frontal sinuses. CT/CT head/brain wo con IMPRESSION: Generalized atrophy and nonspecific periventricular white matter disease. Nondisplaced left parietal parietal bone skull fracture is difficult to visualize. Interval decrease in soft tissue swelling adjacent to the posterior skull. Right maxillary, ethmoid and frontal sinus disease.
--- NOTE | ~2021-06-20 | CT_ITS ---
EXAMINATION: CT CHEST WITHOUT CONTRAST CLINICAL INFORMATION: Encephalopathy, hypoxia COMPARISON: Chest radiograph dated 06/27/2021. TECHNIQUE: Multidetector volumetric CT imaging of the chest was done. Axial MIP volume rendering provided. Sagittal and coronal reformatted images were obtained. This CT examination was performed using dose optimization techniques as appropriate, variously including the following: *Automated exposure control *Adjustment of mA and/or kV according to patient size (this includes techniques or standardized protocols for targeted exams where dose is matched to indication/reason for exam; i.e. extremities or head) *Use of iterative reconstruction technique DLP: 450 mGy-cm FINDINGS: LUNGS: Respiratory motion is evident throughout both lungs, limiting fine detail of the pulmonary parenchyma. There is partial collapse of the bilateral lower lobes at the more dependent, posterior segment as well as the inferior lingular segment of the left upper lobe. Bronchograms are present. The level superimposed consolidation is possible, though felt to be less likely. There is some interlobular septal thickening in the lung apices and at the aerated portions of the bases. Central airways are clear. No pulmonary nodules are identified on these images. MEDIASTINUM: Cardiomegaly. Relative hypoattenuation of the blood pool as compared to the myocardium is consistent with hemodilution/anemia. Significant atherosclerotic calcification is present at the coronary arteries. TAVR device is in place. Calcific atherosclerosis is present in the thoracic aorta. No aneurysmal dilatation. Pulmonary vasculature appears engorged. Right IJ catheter tip terminates in the proximal portion of the SVC. Thyroid gland is unremarkable. No appreciable adenopathy. PLEURA: Small dependent bilateral simple pleural effusions. AXILLA: No lymphadenopathy. UPPER ABDOMEN: No acute abnormalities in the upper abdomen. Calcific atherosclerosis abdominal aorta and branch vessels. OSSEOUS STRUCTURES: Bones are osteopenic. Moderate to severe multilevel degenerative disc disease. There is chronic collapse and osseous remodeling at the L1 vertebral body, only partially imaged on this study. No new fractures are identified. CT/CT chest wo con IMPRESSION: Cardiomegaly with interstitial edema, pulmonary venous congestion, and small effusions, consistent with CHF. There is significant dependent atelectasis bilaterally superimposed areas of consolidation are possible, but felt to be less likely. Fleischner guidelines were followed.
--- NOTE | ~2021-06-20 | CT_ITS ---
EXAMINATION: CT BRAIN AND CT CERVICAL SPINE WITHOUT CONTRAST. CLINICAL INFORMATION: Status post fall hit head on helical wrist. COMPARISON: CT cervical spine 07/24/2020 TECHNIQUE: 5 mm thin axial and reformatted 2 mm thin sagittal and coronal images of brain were obtained without contrast. Subsequently axial 3 mm thin and reformatted 2 mm thin sagittal and coronal images of cervical spine were obtained. DLP 888 FINDINGS: Brain: There is no acute intra-axial, extra-axial bleed, masses or midline shift. There is no acute infarction evolution. There is no edema or mass effect. The lateral ventricles are symmetrical in size and configuration without enlargement. There is diffuse periventricular hypodensity suggestive of chronic small vessel ischemic changes. The large right posterior occipital lobe scalp hematoma and laceration. There is a nondisplaced left occipital calvarial fracture sagittal image 63/15. There is complete opacity right maxillary and mild mucoperiosteal thickening bilateral ethmoid, right frontal sinuses. The mastoid air cells are well-aerated. Cervical spine: There is mild straightening of cervical lordosis. There is mild loss of C6-C7 and C7-T1 disc heights with ventral and posterior spondylosis. There is hypertrophic bony changes at the C1-C2 alignment. The craniovertebral junction is normal. No visible acute fracture, dislocation or subluxation seen. There is old healed posterior C2 fracture of the base when compared to previous study 07/24/2020. Mild degenerative changes right C3-C4 and left C2-C3 disc levels is noted. The prevertebral and paravertebral soft tissues are normal. The thyroid lobes are symmetric and normal. The central trachea and the bronchi widely patent. The lung apices are clear. CT/CT cervical spine wo con IMPRESSION: Large central and right occipital hematoma with laceration and nondisplaced left occipital fracture. Old healed fracture posterior C2 base. No acute fracture or dislocation seen at this time. Degenerative disc changes C6-C7 and C7-T1 disc levels with ventral and posterior spondylosis.
--- NOTE | ~2021-06-20 | IR_ITS ---
PROCEDURE: IR INSERTION OF TUNNEL CATHETER CLINICAL INFORMATION: Rob insertion for long-term antibiotics. COMPARISON: None TECHNIQUE: Following explaining ultrasound fluoroscopy-guided placement of a right Rob tunnel catheter procedure, benefits and risk, a written consent was obtained. Patient was placed supine on fluoroscopy table with preliminary ultrasound imaging obtained through the right anterior neck. A marker was placed at these likely site of needle insertion. The area was cleaned and draped in the usual sterile manner. 1% lidocaine was administered at the puncture site. Under sterile ultrasound guidance, a single wall needle was advanced from the marked space into the right jugular vein and punctured. After obtaining venous return, a thin guidewire was advanced through the needle and placed in the SVC and the needle withdrawn. A 5 Surinamese dilator sheath was advanced over the needle. The entire unit was anchored to the patient's drape with a hemostat. 1% lidocaine was then inserted at the right anterolateral chest wall approximately 1 gauze length from the right neck incision. A small skin incision was performed. 1% lidocaine with epinephrine was then advanced from the right anterior chest wall incision to the right neck wall incision subcutaneously. A blunt tunneler attached to to the Rob catheter was advanced from the right anterior chest wall to the right neck incision and the entire catheter was pulled out making sure the cuff was within the subcutaneous soft tissues. The catheter was sized to 21 cm in length. The existent right neck 5 Surinamese dilator and the guidewire were removed and a 0.035 J-wire was advanced and placed in IVC and the sheath removed. A 5 [place]amese dilator sheath was advanced over the guidewire. The dilator and the guidewire was removed. The pre-cut Rob catheter was then advanced through the peel-away sheath into the SVC. The peel-away sheath was removed as the catheter was held in position. A final image was obtained documenting the catheter tip in the proximal SVC. The Rob catheter was flushed with normal saline followed by heparinized saline. 3 0 absorbable sutures were placed along the right neck incision and along the right anterior chest wall incision. Sterile dressing was applied postprocedure. Fentanyl and Versed were administered during the exam as patient was monitored for approximately 40 minutes. All elements of maximal sterile barrier technique followed including use of cap, mask, sterile gown, sterile gloves, a sterile full body drape and hand hygiene. Also followed skin preparation with 2% chlorhexidine for cutaneous antisepsis, and sterile ultrasound preparation with sterile gel and probe cover when applicable. FINDINGS: On preliminary ultrasound imaging, there is widely patent right jugular vein. Approximately 21 cm long 5 Surinamese Rob catheter inserted under ultrasound fluoroscopy. IR/IR cvc insert central tunnel IMPRESSION: 1. Successful ultrasound and fluoroscopy-guided placement of a tunneled Rob catheter via right jugular vein. The catheter tip is in SVC ready for use. 2. Fluoroscopy time: 1.2 minutes. 3. Dose area product: 255 cGy/cm2
[2021-06-20 10:43] VITALS: BP 122/78; BP 93/45; PULSE 64; PULSE 67; RESP 18; TEMP 36.4; O2SAT 100; O2SAT 96; BMI 30.2
--- NOTE | 2021-06-20 11:04 | ECG_ITS ---
Test Reason : fall Blood Pressure : / mmHG Vent. Rate : 071 BPM Atrial Rate : 071 BPM P-R Int : 248 ms QRS Dur : 116 ms QT Int : 430 ms P-R-T Axes : 056 -08 117 degrees QTc Int : 467 ms Sinus rhythm with 1st degree A-V block Minimal voltage criteria for LVH, may be normal variant ( [place] product ) Septal infarct (cited on or before 24-JUN-2014) ST & T wave abnormality, consider lateral ischemia Abnormal ECG When compared with ECG of 23-JUL-2020 19:12, No significant change was found Referred By: Sung Acosta Electronically Signed By:CHRIS MANCERA
--- NOTE | 2021-06-20 11:06 | ED_ITS ---
HPI - General Adult General Chief complaint: Wound/Laceration Stated complaint: FALL 1 MONTH AGO W/BLEEDING BACK OF HEAD Time Seen by Provider: 06/20/21 11:04 Source: patient Mode of arrival: ambulatory Limitations: no limitations History of Present Illness HPI narrative: This is a 80-year-old female past medical history significant for afib on Eliquis, CKD IV, s/p TAVR, DM2 that presents to the emergency depar tment with complaints of bleeding from the back of the head, dizziness, weakness and feeling faint . Patient had a fall about a month ago she came to the ED had a full negative work up. Patient tells me that the laceration to the back of her head did not require closure, and it was not bleeing when she left. She tells me that she went home and 3 days ago the laceration started bleeding it has not stopped bleeding for 3 days. She expresses to me she feels a lump on the back of her head that grew and then shrunk. Patient is on Eliquis. She did not take her dose today. She tells me at this point she feels very weak, fatigued in faint. She also is very pale. She tells me she lives at home with her son. She denies chest pain, shortness of breath, fevers, chills, nausea, vomiting, abdominal pain, diarrhea. Onset (ago): day(s) (3) Location: head Radiation: non-radiation Severity: severe Quality: constant Pain Consistency: constant Relieving factors: none Exacerbating factors: none Associated symptoms: denies other symptoms Treatments prior to arrival: none Related Data Home Medications Medication Instructions Recorded Confirmed acetaminophen 650 mg tablet 650 mg PO Q4H PRN 03/05/20 06/16/21 cholecalciferol (vitamin D3) 50 2,000 unit PO DAILY 03/05/20 06/16/21 mcg (2,000 unit) capsule memantine 21 mg capsule 21 mg PO DAILY 03/05/20 06/16/21 sprinkle,extended release 24hr (Namenda XR) albuterol sulfate 90 mcg/actuation 2 puff INHALATION Q6H PRN g 04/06/20 06/16/21 aerosol inhaler (ProAir HFA) meclizine 12.5 mg tablet 25 mg PO NEEDED 05/19/20 06/16/21 umeclidinium 62.5 mcg/actuation 1 inh INHALATION BEDTIME 06/10/20 06/16/21 blister powder for inhalation (Incruse Ellipta) nystatin 100,000 unit/gram topical 1 appl TOPICAL BID 05/08/21 06/16/21 powder rivastigmine tartrate 6 mg capsule 6 mg PO BID 05/12/21 06/16/21 Previous Rx's Medication Instructions Recorded nitroglycerin 0.4 mg sublingual 0.4 mg SUBLINGUAL Q5M PRN 30 Days 09/08/20 tablet #30 tab ferrous sulfate 325 mg (65 mg 325 mg PO DAILY #90 tab 11/29/20 iron) tablet amiodarone 200 mg tablet 200 mg PO DAILY 90 Days #90 tab 12/10/20 calcitriol 0.25 mcg capsule 0.25 mcg PO 3XW 90 Days #39 cap 03/18/21 nitrofurantoin macrocrystal 100 mg 100 mg PO DAILY 30 Days #30 cap 03/18/21 capsule omeprazole 20 mg capsule,delayed 20 mg PO DAILY #90 cap 03/18/21 release isosorbide mononitrate 30 mg 30 mg PO DAILY #90 tab 04/01/21 tablet,extended release 24 hr sertraline 100 mg tablet 100 mg PO DAILY #90 tab 04/27/21 apixaban 2.5 mg tablet (Eliquis) 2.5 mg PO BID #180 tab 06/08/21 amlodipine 5 mg tablet 10 mg PO DAILY 90 Days #180 tab 06/16/21 atorvastatin 20 mg tablet 20 mg PO DAILY #90 tab 06/16/21 hydralazine 100 mg tablet 100 mg PO BID #180 tab 06/16/21 pregabalin 50 mg capsule 50 mg PO TID 90 Days #270 cap 06/16/21 Allergies Allergy/AdvReac Type Severity Reaction Status Date / Time Penicillins [PENICILLINS] Allergy Severe HIVES/SWELL Verified 06/16/21 12:02 ING Review of Systems Review of Systems: Constitutional : No Weight loss, No Fever, No Chills, No Fatigue, No Malaise ENT/Mouth : No sore throat, No Rhinorrhea Eyes: No Eye Pain, No Swelling, No Redness Cardiovascular : No Chest Pain, No SOB, No Dyspnea on Exertion, No Orthopnea, No Edema, No Palpitations Respiratory : No Cough, No Sputum, No Wheezing Gastrointestinal : No Nausea, No Vomiting, No Diarrhea, No Constipation, No abdominal Pain, No Hematochezia, No Melena Genitourinary : No Dysuria, No Urinary Frequency, No Hematuria, Musculoskeletal : No joint pain, No Myalgias, No Joint Swelling Skin : No Skin Lesions, No rash, +laceration Neuro : No Weakness, No Numbness, No Dizziness, No Headache Psych : No Anxiety/Panic, No Depression All other systems reviewed and are negative ON LICENSE OF [facility] Past Medical History Attestation statement: The following information was validated with the patient. Source: nursing notes reviewed Medical History (HFpEF) heart failure with preserved ejection fraction Acute blood loss anemia Afib Anemia Anxiety Aortic valve stenosis Asthma Bacteremia Bacteremia Bacteremia Basal cell carcinoma Benign essential hypertension Cellulitis Chronic kidney disease, stage 4 (severe) COPD (chronic obstructive pulmonary disease) Diabetic polyneuropathy Fracture Gallstones Hospital discharge follow-up Hypernatremia Melanoma Mild cognitive impairment with memory loss Nocturnal hypoxemia Obesity (BMI 30-39.9) Paroxysmal atrial fibrillation Pure hypercholesterolemia Thrombocytopenia Type 2 diabetes mellitus with diabetic chronic kidney disease Surgical History History of cardiac catheterization History of colonoscopy History of eye surgery 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) Stented coronary artery Family History Family History Father Medical history unknown Mother Acute myeloid leukemia Cancer Maternal Grandmother Myocardial infarction Brother Myocardial infarction Sister Brain aneurysm Social History Social History Household Members: Spouse and Family Housing: House Are you a primary child care associate teacher to a significant other at home: No Do you presently have visiting nurse or other home services: Yes Alcohol intake: never Patient Tobacco Use Status: Former Tobacco user Years Smoked: 19 e-Cigarette/Vaping Use: Never Used Second Hand Smoke Exposure: Yes Advance Directives: Yes Advance Directives on File: Yes Advance Directives Date on File: 07/24/20 service: No Current occupational status: retired Cognitive needs: No Hearing needs: No Vision needs: No Physical Exam Vital Signs: Vital Signs: Last Vital Signs Temp 98.4 F 06/20/21 17:21 Pulse 74 06/20/21 17:21 Resp 16 06/20/21 17:21 BP 104/65 06/20/21 17:21 Pulse Ox 95 06/20/21 17:21 BMI result Body Mass Index 30.2 vss Appearance: Alert.? Oriented X3.? No acute distress.? Head: Normocephalic, atraumatic, no step-offs or deformities Eyes: Pupils equal, round and reactive to light.? ENT: Pharynx normal.? Neck: Normal inspection.? Neck supple.? CVS: Normal heart rate and rhythm.? Pulses normal.? Respiratory: No respiratory distress.? Breath sounds normal.? Abdomen: Soft and nontender.? Skin: Skin warm and dry.? +pale skin and mucus membranes.? Normal skin turgor.? + bleeding mass like structure to the occipital part of the head. (mass fell off when cleaning head with saline) ( images attached to chart) Extremities: No lower extremity edema.? No calf ttp. 5/5 strength to bilateral upper and lower extremities Back: No midline tenderness, no C-spine tenderness, full range of motion, no CVA tenderness bilaterally Neuro: Oriented X 3.? No motor deficit.? No sensory deficit. Course Reevaluation(s) Reevaluation #1: Spoke to patient's son tells me a story similar to what the patient told me. He tells me that this lump/mass to the back or head was present status post fall, is been fluctuating in size over the past 2 weeks, he tells me it exploded and started bleeding. Time: 14:01 Reevaluation #2: Successfully sutured the back of the head, approximated edges well, used 3 4-0 non dissolvable sutures. Patient tolerated procedure well. Bleeding well controlled. Pathology- mass from head was put in a container and will be sent for analysis. Time: 15:34 Reevaluation #3: OBS X1 negative. unlikley lower GI bleed. source of patients anemia likley head laceration that had been bleeding for 3 days at home. Area sutured and no longer bleeding. Signout was given to pending completion of transfusion. Dispo. depending on improvement, O2 saturation and blood counts. Time: 18:31 Procedures Laceration Laceration 1: Site: scalp Size (cm): 2 Description: stellate (/ciruclar) and other Depth: simple, single layer Local Anesthetic: lidocaine 2% (w/ epi) Amount of anesthesia used (mL): 5 Pre-repair: wound explored, irrigated extensively and deep structures intact Skin layer closed with: vicryl Size (cm): 4-0 Number of sutures: 3 Technique: simple, interrupted Medical Decision Making MDM Narrative Medical decision making narrative: 1130 80 yo F pmhx afib on Eliquis, CKD IV, s/p TAVR, DM2 presents to ED with complaints of bleeding from the back of the head, dizziness, weakness and feelin g faint X3 days. Patient had a fall about a month ago she came to the ED had a full negative work up. She tells me since after the fall she devloped a squishy lump on the back of her head. PE significant for a mass like structure on the occopital aspect of head. While cleaning patients head the mass fell off and left a hole to patients head. Bleeding from the hole was noted. Sutures were placed to stop the bleedin. Prior to that the area was cleaned well and with patients consent/permission we cut patient's hair to be able to visualize where the bleeding was coming from. Dr. Lawrence was also at the bedside for this. Patient agreed to us cutting/shaving her head as needed. Plan at this time is to obtain basic labs, EKG, secured entrance monitor, CT of the cervical spine and CT of the head/ brain, lactic and blood cultures. I will also obtain a UA. Medical Records Medical records reviewed: Yes I reviewed the patient's medical records. Lab Data Lab results reviewed: Yes I reviewed the patient's lab results. Result diagrams: 06/20/21 14:14 06/20/21 11:28 Labs: Lab Results 06/20/21 06/20/21 06/20/21 Range/Units 11:28 11:28 11:28 WBC 15.0 H (4.8-10.8) X10*3/uL RBC 2.77 L (4.20-5.50) X10*6/uL Hgb 8.5 L (12.0-16.0) g/dl Hct 26.9 L (37.0-47.0) % MCV 97.1 (80.0-98.0) fL MCH 30.7 (27.0-33.0) pg MCHC 31.6 (31.0-35.0) g/dl RDW 14.5 (11.0-16.0) % Plt Count 205 (160-400) X10*3/uL MPV 11.7 (9.4-12.3) fL Immature Gran % (Auto) 1.5 H (0.0-0.4) % Neut % (Auto) 83.2 H (45-73) % Lymph % (Auto) 8.9 L (20-40) % [place] % (Auto) 5.9 (2-11) % Eos % (Auto) 0.3 (0-4) % Baso % (Auto) 0.2 (0-2) % Lymph # (Auto) 1.3 (1.2-4.9) X10*3/uL [place] # (Auto) 0.9 (0.1-1.2) X10*3/uL Eos # (Auto) 0.0 (0.0-0.4) X10*3/uL Baso # (Auto) 0.0 (0.0-0.2) X10*3/uL Abs Immat Gran (auto) 0.23 H (0.00-0.03) X10*3/uL Absolute Neuts (auto) 12.5 H (2.0-8.3) x10*3/uL Absolute Nucleated RBC 0.000 (0.0-0.012) X10*3/uL Nucleated RBC % (auto) 0.0 (0.0-0.2) /100WBC PT (9.9-13.0) SEC INR (0.9-1.1) Sodium 140 (135-145) mmol/L Potassium 4.0 (3.3-5.1) mmol/L Chloride 106 (96-108) mmol/L Carbon Dioxide 23 (22-29) mmol/L Anion Gap 15 (12-20) BUN 42 H (9-16) mg/dL Creatinine 3.35 H (0.5-1.4) mg/dL Estim Creat Clear Calc 11.6 Estimated GFR 13 Random Glucose 212 H (60-115) mg/dL Lactic Acid 2.5 H* (0.5-2.0) mmol/L Lactic Acid F/U @ 2Hr (0.5-2.0) mmol/L Lactic Acid F/U @ 4Hr (0.5-2.0) mmol/L Calcium 8.9 (8.4-10.2) mg/dL Magnesium 2.7 H (1.6-2.6) mg/dL Total Bilirubin 0.3 (0.0-1.0) mg/dL AST 56 H (5-31) U/L ALT 82 H (0-31) U/L Alkaline Phosphatase 71 (39-117) U/L Total Protein 6.1 L (6.5-8.0) g/dL Albumin 3.5 (3.5-5.0) g/dL Stool Occult Blood (NEGATIVE) COVID-19 (TAISHA) (Negative) COVID-19 Clin Com Blood Type Antibody Screen Crossmatch (AHG) 06/20/21 06/20/21 06/20/21 Range/Units 14:14 14:14 14:14 WBC 11.9 H (4.8-10.8) X10*3/uL RBC 2.39 L (4.20-5.50) X10*6/uL Hgb 7.2 L (12.0-16.0) g/dl Hct 23.2 L (37.0-47.0) % MCV 97.1 (80.0-98.0) fL MCH 30.1 (27.0-33.0) pg MCHC 31.0 (31.0-35.0) g/dl RDW 14.5 (11.0-16.0) % Plt Count 145 L D (160-400) X10*3/uL MPV 10.9 (9.4-12.3) fL Immature Gran % (Auto) 1.8 H (0.0-0.4) % Neut % (Auto) 85.1 H (45-73) % Lymph % (Auto) 7.8 L (20-40) % [place] % (Auto) 5.0 (2-11) % Eos % (Auto) 0.0 (0-4) % Baso % (Auto) 0.3 (0-2) % Lymph # (Auto) 0.9 L (1.2-4.9) X10*3/uL [place] # (Auto) 0.6 (0.1-1.2) X10*3/uL Eos # (Auto) 0.0 (0.0-0.4) X10*3/uL Baso # (Auto) 0.0 (0.0-0.2) X10*3/uL Abs Immat Gran (auto) 0.22 H (0.00-0.03) X10*3/uL Absolute Neuts (auto) 10.2 H (2.0-8.3) x10*3/uL Absolute Nucleated RBC 0.000 (0.0-0.012) X10*3/uL Nucleated RBC % (auto) 0.0 (0.0-0.2) /100WBC PT 15.3 H (9.9-13.0) SEC INR 1.3 H (0.9-1.1) Sodium (135-145) mmol/L Potassium (3.3-5.1) mmol/L Chloride (96-108) mmol/L Carbon Dioxide (22-29) mmol/L Anion Gap (12-20) BUN (9-16) mg/dL Creatinine (0.5-1.4) mg/dL Estim Creat Clear Calc Estimated GFR Random Glucose (60-115) mg/dL Lactic Acid (0.5-2.0) mmol/L Lactic Acid F/U @ 2Hr 2.3 H* (0.5-2.0) mmol/L Lactic Acid F/U @ 4Hr (0.5-2.0) mmol/L Calcium (8.4-10.2) mg/dL Magnesium (1.6-2.6) mg/dL Total Bilirubin (0.0-1.0) mg/dL AST (5-31) U/L ALT (0-31) U/L Alkaline Phosphatase (39-117) U/L Total Protein (6.5-8.0) g/dL Albumin (3.5-5.0) g/dL Stool Occult Blood (NEGATIVE) COVID-19 (TAISHA) (Negative) COVID-19 Clin Com Blood Type Antibody Screen Crossmatch (AHG) 06/20/21 06/20/21 06/20/21 Range/Units 15:49 16:53 17:10 WBC (4.8-10.8) X10*3/uL RBC (4.20-5.50) X10*6/uL Hgb (12.0-16.0) g/dl Hct (37.0-47.0) % MCV (80.0-98.0) fL MCH (27.0-33.0) pg MCHC (31.0-35.0) g/dl RDW (11.0-16.0) % Plt Count (160-400) X10*3/uL MPV (9.4-12.3) fL Immature Gran % (Auto) (0.0-0.4) % Neut % (Auto) (45-73) % Lymph % (Auto) (20-40) % [place] % (Auto) (2-11) % Eos % (Auto) (0-4) % Baso % (Auto) (0-2) % Lymph # (Auto) (1.2-4.9) X10*3/uL [place] # (Auto) (0.1-1.2) X10*3/uL Eos # (Auto) (0.0-0.4) X10*3/uL Baso # (Auto) (0.0-0.2) X10*3/uL Abs Immat Gran (auto) (0.00-0.03) X10*3/uL Absolute Neuts (auto) (2.0-8.3) x10*3/uL Absolute Nucleated RBC (0.0-0.012) X10*3/uL Nucleated RBC % (auto) (0.0-0.2) /100WBC PT (9.9-13.0) SEC INR (0.9-1.1) Sodium (135-145) mmol/L Potassium (3.3-5.1) mmol/L Chloride (96-108) mmol/L Carbon Dioxide (22-29) mmol/L Anion Gap (12-20) BUN (9-16) mg/dL Creatinine (0.5-1.4) mg/dL Estim Creat Clear Calc Estimated GFR Random Glucose (60-115) mg/dL Lactic Acid (0.5-2.0) mmol/L Lactic Acid F/U @ 2Hr (0.5-2.0) mmol/L Lactic Acid F/U @ 4Hr 0.7 (0.5-2.0) mmol/L Calcium (8.4-10.2) mg/dL Magnesium (1.6-2.6) mg/dL Total Bilirubin (0.0-1.0) mg/dL AST (5-31) U/L ALT (0-31) U/L Alkaline Phosphatase (39-117) U/L Total Protein (6.5-8.0) g/dL Albumin (3.5-5.0) g/dL Stool Occult Blood (NEGATIVE) COVID-19 (TAISHA) Positive A (Negative) COVID-19 Clin Com See Note Blood Type A Positive Antibody Screen POSITIVE Crossmatch (AHG) See Detail 06/20/21 Range/Units 17:51 WBC (4.8-10.8) X10*3/uL RBC (4.20-5.50) X10*6/uL Hgb (12.0-16.0) g/dl Hct (37.0-47.0) % MCV (80.0-98.0) fL MCH (27.0-33.0) pg MCHC (31.0-35.0) g/dl RDW (11.0-16.0) % Plt Count (160-400) X10*3/uL MPV (9.4-12.3) fL Immature Gran % (Auto) (0.0-0.4) % Neut % (Auto) (45-73) % Lymph % (Auto) (20-40) % [place] % (Auto) (2-11) % Eos % (Auto) (0-4) % Baso % (Auto) (0-2) % Lymph # (Auto) (1.2-4.9) X10*3/uL [place] # (Auto) (0.1-1.2) X10*3/uL Eos # (Auto) (0.0-0.4) X10*3/uL Baso # (Auto) (0.0-0.2) X10*3/uL Abs Immat Gran (auto) (0.00-0.03) X10*3/uL Absolute Neuts (auto) (2.0-8.3) x10*3/uL Absolute Nucleated RBC (0.0-0.012) X10*3/uL Nucleated RBC % (auto) (0.0-0.2) /100WBC PT (9.9-13.0) SEC INR (0.9-1.1) Sodium (135-145) mmol/L Potassium (3.3-5.1) mmol/L Chloride (96-108) mmol/L Carbon Dioxide (22-29) mmol/L Anion Gap (12-20) BUN (9-16) mg/dL Creatinine (0.5-1.4) mg/dL Estim Creat Clear Calc Estimated GFR Random Glucose (60-115) mg/dL Lactic Acid (0.5-2.0) mmol/L Lactic Acid F/U @ 2Hr (0.5-2.0) mmol/L Lactic Acid F/U @ 4Hr (0.5-2.0) mmol/L Calcium (8.4-10.2) mg/dL Magnesium (1.6-2.6) mg/dL Total Bilirubin (0.0-1.0) mg/dL AST (5-31) U/L ALT (0-31) U/L Alkaline Phosphatase (39-117) U/L Total Protein (6.5-8.0) g/dL Albumin (3.5-5.0) g/dL Stool Occult Blood NEGATIVE (NEGATIVE) COVID-19 (TAISHA) (Negative) COVID-19 Clin Com Blood Type Antibody Screen Crossmatch (AHG) Critical Care Time Critical Care Time Critical Care Time: No Discharge Plan Discharge Clinical Impression: Laceration of skin of scalp, Acute blood loss anemia Patient Disposition: Home, Self-Care Instructions: Care For Your Stitches (ED), Laceration (ED) Additional Instructions: Take your medications as prescribed. If you were prescribed antibiotics today, it is important that you take your medication to their entirety, do not skip any doses, do not finish them early. Today you tested positive for COVID-19. Take Ibuprofen or Tylenol as needed for fevers or body aches. Quarantine for 7 days and ensure you wear a mask. After 7 days you should wear a mask for 3 days after that. Practice social distancing and good hand hygiene. Drink plenty of fluids. Follow-up with your primary care provider this week. Return to the emergency department with new or worsening symptoms. In case of emergency call 911 You can purchase a pulse oximeter from your local pharmacy or grocery store, and monitor your oxygen saturation if it goes below 94% you should return to the emergency department for further evaluation. Please return in 5-7 days for suture removal. There are 3 sutures to be removed. Prescriptions: No Action ferrous sulfate 325 mg (65 mg iron) tablet 325 mg PO DAILY Qty: 90 RF: 1 isosorbide mononitrate 30 mg tablet extended release 24 hr 30 mg PO DAILY Qty: 90 RF: 1 sertraline 100 mg tablet 100 mg PO DAILY Qty: 90 RF: 1 nystatin 100,000 unit/gram powder 1 appl topical BID RF: 0 Eliquis 2.5 mg tablet 2.5 mg PO BID Qty: 180 RF: 2 acetaminophen 650 mg Tablet 650 mg PO Q4H PRN (Reason: Headache) RF: 0 cholecalciferol (vitamin D3) 50 mcg (2,000 unit) Capsule 2,000 unit PO DAILY RF: 0 memantine [Namenda XR] 21 mg Capsule,Sprinkle,Er 24hr 21 mg PO DAILY RF: 0 albuterol sulfate [ProAir HFA] 90 mcg/actuation HFA aerosol inhaler 2 puff INHALATION Q6H PRN (Reason: Wheezing) RF: 0 rivastigmine tartrate 6 mg capsule 6 mg PO BID RF: 0 meclizine 12.5 mg tablet 25 mg PO NEEDED RF: 0 nitroglycerin 0.4 mg tablet, sublingual 0.4 mg sublingual Q5M PRN (Reason: chest pain) 30 Days Qty: 30 RF: 5 amiodarone 200 mg tablet 200 mg PO DAILY 90 Days Qty: 90 RF: 3 nitrofurantoin macrocrystal 100 mg capsule 100 mg PO DAILY 30 Days Qty: 30 RF: 2 omeprazole 20 mg capsule,delayed release(DR/EC) 20 mg PO DAILY Qty: 90 RF: 1 calcitriol 0.25 mcg capsule 0.25 mcg PO 3XW 90 Days Qty: 39 RF: 3 atorvastatin 20 mg tablet 20 mg PO DAILY Qty: 90 RF: 3 hydralazine 100 mg tablet 100 mg PO BID Qty: 180 RF: 1 pregabalin 50 mg capsule 50 mg PO TID 90 Days Qty: 270 RF: 0 amlodipine 5 mg tablet 10 mg PO DAILY 90 Days Qty: 180 RF: 3 Incruse Ellipta 62.5 mcg/actuation blister with device 1 inh inhalation BEDTIME RF: 0 Referrals: Anthony Titus MD [Primary Care Provider] - 2 days
[2021-06-20 11:34] LABS: MANUAL DIFF FLAG NO
[2021-06-20 11:36] LABS: Basophils Percent Auto 0.2 % (0-2); Eosinophils Percent Auto 0.3 % (0-4); Hematocrit 26.9 % (37.0-47.0); Hemoglobin 8.5 g/dl (12.0-16.0); Imm Gran Abs Auto 0.23 X10*3/uL (0.00-0.03); Imm Gran Pct Auto 1.5 % (0.0-0.4); Lymphocytes Absolute Auto 1.3 X10*3/uL (1.2-4.9); Lymphocytes Percent Auto 8.9 % (20-40); Mean Corpuscular HGB Conc 31.6 g/dl (31.0-35.0); Mean Corpuscular Hemoglobin 30.7 pg (27.0-33.0); Mean Corpuscular Volume 97.1 fL (80.0-98.0); Mean Platelet Volume 11.7 fL (9.4-12.3); Monocytes Absolute Auto 0.9 X10*3/uL (0.1-1.2); Monocytes Percent Auto 5.9 % (2-11); Neutrophils Absolute Auto 12.5 x10*3/uL (2.0-8.3); Neutrophils Percent Auto 83.2 % (45-73); Platelet Count 205 X10*3/uL (160-400); Red Blood Count 2.77 X10*6/uL (4.20-5.50); Red Cell Distribution Width 14.5 % (11.0-16.0)
[2021-06-20 11:57] LABS: Alanine Aminotransferase 82 U/L (0-31); Albumin Level 3.5 g/dL (3.5-5.0); Alkaline Phosphatase 71 U/L (39-117); Anion Gap 15 (12-20); Aspartate Amino Transferase 56 U/L (5-31); Bilirubin Total 0.3 mg/dL (0.0-1.0); Blood Urea Nitrogen 42 mg/dL (9-16); Calcium 8.9 mg/dL (8.4-10.2); Carbon Dioxide 23 mmol/L (22-29); Chloride 106 mmol/L (96-108); Creatinine Clr Calc Pharmacy 11.6; Estimated Glomerular Filt Rate 13; Glucose Random 212 mg/dL (60-115); Magnesium 2.7 mg/dL (1.6-2.6); Sodium 140 mmol/L (135-145); Total Protein 6.1 g/dL (6.5-8.0)
[2021-06-20 11:59] LABS: Lactic Acid 2.5 mmol/L (0.5-2.0)
[2021-06-20] MEDS: 0.9 % Sodium Chloride 1,000 ML 999 ML IV ×2 (13:02→16:56)
[2021-06-20] MEDS: Lidocaine HCl 2%/Epi 1:100,000 20 ML VIAL INFILTRATI (13:19)
[2021-06-20 13:33] LABS: Reflex Lactate? Lactic Acid Added
[2021-06-20 14:18] LABS: MANUAL DIFF FLAG NO
[2021-06-20 14:20] LABS: Basophils Percent Auto 0.3 % (0-2); Hematocrit 23.2 % (37.0-47.0); Hemoglobin 7.2 g/dl (12.0-16.0); Imm Gran Abs Auto 0.22 X10*3/uL (0.00-0.03); Imm Gran Pct Auto 1.8 % (0.0-0.4); Lymphocytes Absolute Auto 0.9 X10*3/uL (1.2-4.9); Lymphocytes Percent Auto 7.8 % (20-40); Mean Corpuscular Hemoglobin 30.1 pg (27.0-33.0); Mean Corpuscular Volume 97.1 fL (80.0-98.0); Mean Platelet Volume 10.9 fL (9.4-12.3); Monocytes Absolute Auto 0.6 X10*3/uL (0.1-1.2); Neutrophils Absolute Auto 10.2 x10*3/uL (2.0-8.3); Neutrophils Percent Auto 85.1 % (45-73); Platelet Count 145 X10*3/uL (160-400); Red Blood Count 2.39 X10*6/uL (4.20-5.50); Red Cell Distribution Width 14.5 % (11.0-16.0); White Blood Count 11.9 X10*3/uL (4.8-10.8)
[2021-06-20 14:32] LABS: INTERNATIONAL NORM RATIO 1.3 (0.9-1.1); Prothrombin Time 15.3 SEC (9.9-13.0)
[2021-06-20 14:51] VITALS: BP 118/48; PULSE 82; RESP 14; TEMP 36.7; O2SAT 97
[2021-06-20 14:59] LABS: ~Lactic Acid-LAB USE ONLY 2.3 mmol/L (0.5-2.0)
--- NOTE | 2021-06-20 15:21 | PC.NURSE ---
Pt received: AOX4 and offers no complaints at this time. Skin pale. 3 sutures noted to back of R head. Culture of received hematoma at bedside. NSR noted and lungs clear. Pt abd soft and non-tender.
[2021-06-20 16:18] LABS: Reflex Lactate? 2 Y
[2021-06-20 17:21] VITALS: BP 104/65; PULSE 74; RESP 16; TEMP 36.9; O2SAT 95
[2021-06-20 17:31] LABS: ~Lactic Acid-LAB USE ONLY 0.7 mmol/L (0.5-2.0)
[2021-06-20 17:49] LABS: COVID-19 Test Positive (Negative)
[2021-06-20 18:19] LABS: OBS Int Ctl Valid YES; OBS1 NEGATIVE (NEGATIVE)
[2021-06-20 20:29] VITALS: BP 133/62; PULSE 72; RESP 17; TEMP 36.7
--- NOTE | 2021-06-20 20:39 | PC.NURSE ---
patient a&ox3, typing teacher intact, vss, pt blood started per order, pt turned/positioned to comfort, pt requesting food, will speak with provider,
[2021-06-20 20:46] VITALS: BP 117/51; PULSE 70; RESP 18; TEMP 36.7
[2021-06-20 23:03] VITALS: BP 144/64; PULSE 68; RESP 18; TEMP 36.9
--- NOTE | 2021-06-20 23:07 | PC.NURSE ---
patient a&ox3, transfusion has completed, vss, potline monitor intact, call rosales within reach, will continue to monitor
[2021-06-21] VITALS (13 sets, daily range): BP systolic 107–153; BP diastolic 42–70; PULSE 56–63; RESP 12–16; TEMP 36.4–36.9; O2SAT 95–99
--- NOTE | 2021-06-21 00:38 | PC.NURSE ---
PATIENT HEAD LACERATION WAS CLEANED BY MYSELF AND PATRICIA KATZ .
--- NOTE | 2021-06-21 00:40 | PC.NURSE ---
PATIENT WAS INC OF URINE ,INC CARE WAS DONE ,BEDDING WAS CHANGE AND PATIENT RESTING COMFORTABLE IN BED .
--- NOTE | 2021-06-21 00:56 | PC.NURSE ---
bath was given a bed bath .
--- NOTE | 2021-06-21 01:10 | PC.NURSE ---
PATIENT HAS A SMALL OPEN ELBA, AREA ON LEFT BUTT CHECK ,PATIENT STATE SHE HAS IT FOR A COUPLE OF WEEKS ,RN GIANNA IS AWARE .
[2021-06-21 02:54] LABS: Hematocrit 23.4 % (37.0-47.0); Hemoglobin 7.3 g/dl (12.0-16.0)
--- NOTE | 2021-06-21 02:59 | PC.NURSE ---
PATIENT WAS GIVEN A IAN BRADEN AND A WARM BLANKET .
--- NOTE | 2021-06-21 06:35 | PM.IMHP ---
History of Present Illness Date of Service: 06/21/21 Chief Complaint: bleeding this 80-year-old female with past medical history of CHF with preserved ejection fraction, AFib, anemia, anxiety, aortic valve stenosis status post TAVR, asthma, CAD, CKD, COPD, diabetes, hyperlipidemia among others who presents the hospital with complaints of bleeding from her laceration head. Patient reports that about 3 weeks ago she had a mechanical fall and developed a lump in her head. About 4 days ago she started bleeding profusely from this lump. She tried to treated at home with pads and sleeping upright in a chair but she continued to have profuse bleeding therefore came into the hospital. She is reporting that she is feeling dizzy, generalized weakness, but otherwise has no headache, change in vision, no chest pain and no shortness of breath. She was diagnosed with COVID 19 about 2 weeks ago, but only has a cough and feels no shortness of breath, denies any fever or chills, no abdominal pain nausea or vomiting, no diarrhea constipation, no urinary symptoms and no lower extremity edema. On arrival to the ED patient found to be hemodynamically stable with no significant abnormal vitals Labs are significant for initial hemoglobin of 8.5 that dropped to 7.2 despite receiving 1 unit of PRBC, on repeat CBC few hours later patient dropped even further from 7.2-7.3. Patient is receiving a 2nd unit of PRBC and will be admitted for further management. She has no other significant abnormal vitals except for lactic acid of 2.3 that resolved. Slightly elevated a EULALIA a has a 2, positive COVID-19. Occult stool negative x2. Head CT revealed large central and right occipital hematoma with laceration and nondisplaced left occipital fracture. Old healed fracture posterior C2 base. Patient will be admitted for observation Review of Systems Review of Systems: Yes all other systems are reviewed and are negative [facility] Medical History (HFpEF) heart failure with preserved ejection fraction Acute blood loss anemia Afib Anemia Anxiety Aortic valve stenosis Asthma Bacteremia Bacteremia Bacteremia Basal cell carcinoma Benign essential hypertension Cellulitis Chronic kidney disease, stage 4 (severe) COPD (chronic obstructive pulmonary disease) Diabetic polyneuropathy Fracture Gallstones Hospital discharge follow-up Hypernatremia Melanoma Mild cognitive impairment with memory loss Nocturnal hypoxemia Obesity (BMI 30-39.9) Paroxysmal atrial fibrillation Pure hypercholesterolemia Thrombocytopenia Type 2 diabetes mellitus with diabetic chronic kidney disease Family History Father Medical history unknown Mother Acute myeloid leukemia Cancer Maternal Grandmother Myocardial infarction Brother Myocardial infarction Sister Brain aneurysm Surgical History History of cardiac catheterization History of colonoscopy History of eye surgery 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) Stented coronary artery Social History Household Members: Spouse and Family Housing: House Are you a primary home care and home health aides teacher to a significant other at home: No Do you presently have visiting nurse or other home services: Yes Alcohol intake: never Patient Tobacco Use Status: Former Tobacco user Years Smoked: 19 e-Cigarette/Vaping Use: Never Used Second Hand Smoke Exposure: Yes Advance Directives: Yes Advance Directives on File: Yes Advance Directives Date on File: 07/24/20 service: No Current occupational status: retired Cognitive needs: No Hearing needs: No Vision needs: No Meds Allergies Allergy/AdvReac Type Severity Reaction Status Date / Time Penicillins [PENICILLINS] Allergy Severe HIVES/SWELL Verified 06/16/21 12:02 [facility] Home Medications Medication Instructions Recorded Confirmed Last Taken Type acetaminophen 650 mg tablet 650 mg PO Q4H PRN 03/05/20 06/21/21 Unknown History cholecalciferol (vitamin D3) 50 2,000 unit PO DAILY 03/05/20 06/21/21 03/04/20 History mcg (2,000 unit) capsule memantine 21 mg capsule 21 mg PO DAILY 03/05/20 06/21/21 03/04/20 History sprinkle,extended release 24hr (Namenda XR) albuterol sulfate 90 mcg/actuation 2 puff INHALATION Q6H PRN g 04/06/20 06/21/21 Unknown History aerosol inhaler (ProAir HFA) meclizine 12.5 mg tablet 25 mg PO NEEDED 05/19/20 06/21/21 Unknown History umeclidinium 62.5 mcg/actuation 1 inh INHALATION BEDTIME 06/10/20 06/21/21 Unknown History blister powder for inhalation (Incruse Ellipta) nystatin 100,000 unit/gram topical 1 appl TOPICAL BID 05/08/21 06/21/21 Unknown History powder rivastigmine tartrate 6 mg capsule 6 mg PO BID 05/12/21 06/21/21 Unknown History Physical Exam Vital Signs and Narrative: Vital Signs: Last Vital Signs Temp 98.1 F 06/21/21 06:13 Pulse 59 06/21/21 06:13 Resp 12 06/21/21 06:13 BP 136/70 06/21/21 06:13 Pulse Ox 97 06/21/21 06:12 BMI result Body Mass Index 30.2 Const: General: cooperative and no acute distress Orientation/consciousness: patient oriented x3 HENMT: Other: has a palpable small hematoma on the back of her head, small amount of dry blood. No evidence of acute bleed present. Eyes: General: appearance normal, both eyes and all related structures Pupils: Equal, round and reactive pupils present Resp: Effort & Inspection: normal respiratory effort Auscultation: clear to auscultation bilaterally Cardio: Rate: regular rate Rhythm: regular rhythm GI: Palpation (GI): Soft to palpation Auscultation: normal bowel sounds Skin: General skin exam: no rashes or lesions noted Neuro: General: patient oriented x3 Cranial nerves: Yes Equal, round and reactive pupils present Cognition (Neuro): normal cognition Extrem: General: Yes normal to inspection and Yes no pedal edema Results Labs CBC and Chem 7: 06/21/21 02:50 06/20/21 11:28 Labs: Laboratory Results - last 24 hr 06/20/21 06/20/21 06/20/21 11:28 11:28 11:28 MCV 97.1 MCH 30.7 MCHC 31.6 RDW 14.5 Plt Count 205 MPV 11.7 Immature Gran % (Auto) 1.5 H Neut % (Auto) 83.2 H Lymph % (Auto) 8.9 L [place] % (Auto) 5.9 Eos % (Auto) 0.3 Baso % (Auto) 0.2 Lymph # (Auto) 1.3 [place] # (Auto) 0.9 Eos # (Auto) 0.0 Baso # (Auto) 0.0 Abs Immat Gran (auto) 0.23 H Absolute Neuts (auto) 12.5 H Absolute Nucleated RBC 0.000 Nucleated RBC % (auto) 0.0 PT INR Anion Gap 15 Estim Creat Clear Calc 11.6 Estimated GFR 13 Random Glucose 212 H Lactic Acid 2.5 H* Lactic Acid F/U @ 2Hr Lactic Acid F/U @ 4Hr Calcium 8.9 Magnesium 2.7 H Total Bilirubin 0.3 AST 56 H ALT 82 H Alkaline Phosphatase 71 Total Protein 6.1 L Albumin 3.5 Stool Occult Blood COVID-19 (TAISHA) COVID-19 [facility] Blood Type Antibody Screen Antibody Identification Crossmatch ([facility]) 06/20/21 06/20/21 06/20/21 14:14 14:14 14:14 MCV 97.1 MCH 30.1 MCHC 31.0 RDW 14.5 Plt Count 145 L D MPV 10.9 Immature Gran % (Auto) 1.8 H Neut % (Auto) 85.1 H Lymph % (Auto) 7.8 L [place] % (Auto) 5.0 Eos % (Auto) 0.0 Baso % (Auto) 0.3 Lymph # (Auto) 0.9 L [place] # (Auto) 0.6 Eos # (Auto) 0.0 Baso # (Auto) 0.0 Abs Immat Gran (auto) 0.22 H Absolute Neuts (auto) 10.2 H Absolute Nucleated RBC 0.000 Nucleated RBC % (auto) 0.0 PT 15.3 H INR 1.3 H Anion Gap Estim Creat Clear Calc Estimated GFR Random Glucose Lactic Acid Lactic Acid F/U @ 2Hr 2.3 H* Lactic Acid F/U @ 4Hr Calcium Magnesium Total Bilirubin AST ALT Alkaline Phosphatase Total Protein Albumin Stool Occult Blood COVID-19 (TAISHA) COVID-19 [facility] Blood Type Antibody Screen Antibody Identification Crossmatch ([facility]) 06/20/21 06/20/21 06/20/21 15:49 16:53 17:10 MCV MCH MCHC RDW Plt Count MPV Immature Gran % (Auto) Neut % (Auto) Lymph % (Auto) [place] % (Auto) Eos % (Auto) Baso % (Auto) Lymph # (Auto) [place] # (Auto) Eos # (Auto) Baso # (Auto) Abs Immat Gran (auto) Absolute Neuts (auto) Absolute Nucleated RBC Nucleated RBC % (auto) PT INR Anion Gap Estim Creat Clear Calc Estimated GFR Random Glucose Lactic Acid Lactic Acid F/U @ 2Hr Lactic Acid F/U @ 4Hr 0.7 Calcium Magnesium Total Bilirubin AST ALT Alkaline Phosphatase Total Protein Albumin Stool Occult Blood COVID-19 (TAISHA) Positive A COVID-19 Clin Com See Note Blood Type A Positive Antibody Screen POSITIVE Antibody Identification Anti-c Crossmatch ([facility]) See Detail 06/20/21 17:51 MCV MCH MCHC RDW Plt Count MPV Immature Gran % (Auto) Neut % (Auto) Lymph % (Auto) [place] % (Auto) Eos % (Auto) Baso % (Auto) Lymph # (Auto) [place] # (Auto) Eos # (Auto) Baso # (Auto) Abs Immat Gran (auto) Absolute Neuts (auto) Absolute Nucleated RBC Nucleated RBC % (auto) PT INR Anion Gap Estim Creat Clear Calc Estimated GFR Random Glucose Lactic Acid Lactic Acid F/U @ 2Hr Lactic Acid F/U @ 4Hr Calcium Magnesium Total Bilirubin AST ALT Alkaline Phosphatase Total Protein Albumin Stool Occult Blood NEGATIVE COVID-19 (TAISHA) COVID-19 Clin Com Blood Type Antibody Screen Antibody Identification Crossmatch ([facility]) Imaging Radiologist's Impressions: Impressions Cervical Spine CT 06/20/21 12:00 IMPRESSION: Large central and right occipital hematoma with laceration and nondisplaced left occipital fracture. Old healed fracture posterior C2 base. No acute fracture or dislocation seen at this time. Degenerative disc changes C6-C7 and C7-T1 disc levels with ventral and posterior spondylosis. Head CT 06/20/21 12:00 IMPRESSION: Large central and right occipital hematoma with laceration and nondisplaced left occipital fracture. Old healed fracture posterior C2 base. No acute fracture or dislocation seen at this time. Degenerative disc changes C6-C7 and C7-T1 disc levels with ventral and posterior spondylosis. Assessment and Plan (1) Laceration of skin of scalp: Status: Acute (2) Acute blood loss anemia: Status: Acute (3) Head injury due to trauma: Qualifiers: Encounter type: sequela Qualified Code(s): S09.90XS - Unspecified injury of head, sequela Status: Acute (4) Hematoma: Status: Acute (5) SARS-CoV-2 positive: Status: Acute this is a 80-year-old female with past medical history significant for AFib on Eliquis, CHF who presents to the hospital with bleeding from a laceration her head found to have a large hematoma. # Acute blood loss anemia - secondary to hematoma - status post 2 units of PRBC - will follow CBC following the 2nd unit currently running - stool occult blood negative # hematoma of the had - patient had a mechanical fall about 3 weeks ago, now has CT showing large central and right occipital hematoma with laceration and nondisplaced left occipital fracture - will consult General surgery - monitor for bleed - follow CBC # COVID positive - not hypoxic, - positive 2 weeks ago but continues to have cough - will monitor respiratory status # CHF - not in exacerbation and not on a diuretic - continue home meds # AFib - continue amiodarone, hold apixaban given the bleeding DVT prophylaxis: SCDs Quality Stroke Does the patient have a stroke diagnosis?: No VTE Prior VTE?: No VTE Risk Level:: Medical - moderate - high VTE Device Contraindication: N/A - Device Ordered VTE Drug Contraindication: Treatment Not Indicated
--- NOTE | 2021-06-21 07:29 | PHA.MEDREC ---
Pharmacy Consult ? Medication Reconciliation Nursing has completed the medication reconciliation. Pharmacy has reviewed the Med Rec.
[2021-06-21] MEDS: 0.9 % Sodium Chloride Flush 3 ML SYRINGE IVFLUSH ×2 (07:32→17:01)
--- NOTE | 2021-06-21 08:25 | HO.PM.IMPN ---
Subjective Subjective Date of Service: 06/21/21 Interval History: hematoma /bleeding Review of Systems Denies any new complaint of chest pain or shortness of breath or abdominal pain or fever or chills or nausea or vomiting Denies any cough Denies any weakness or numbness. Physical Exam Vital Signs: Vital Signs: Last Vital Signs Temp 98.4 F 06/21/21 08:18 Pulse 57 06/21/21 08:18 Resp 16 06/21/21 08:18 BP 123/54 L 06/21/21 08:18 Pulse Ox 96 06/21/21 08:18 BMI result Body Mass Index 30.2 physical exam: Appearance: Alert.? Oriented .? not in distress. cvs: rrr, [id number] res: clear to auscultation ,no rhonchii or wheezing abd: no rebound or guarding ,nt, bs present. ext pulses present , no cyanosis skin:has a palpable small hematoma on the back of her head, small amount of dry blood.? No evidence of acute bleed present. neuro: axo3 , nonfocal. Objective Data Active Medications Acetaminophen (Acetaminophen 325 Mg Tablet) 650 mg PO Q6H PRN PRN Reason: Pain, Mild (Pain Scale 1-3) Albuterol Sulfate (Albuterol Sulfate 90 Mcg 8 Gm Inhaler) 2 puff INHALE Q6H PRN PRN Reason: Wheezing Amiodarone HCl (Amiodarone Hcl 200 Mg Tablet) 200 mg PO DAILY [facility] Amlodipine Besylate (Amlodipine Besylate 10 Mg Tablet) 10 mg PO DAILY [facility]; Protocol Atorvastatin Calcium (Atorvastatin Calcium 20 Mg Tablet) 20 mg PO DAILY [facility] Calcitriol (Calcitriol 0.25 Mcg Capsule) 0.25 mcg PO Q2D [facility] Docusate Sodium (Docusate Sodium 100 Mg Capsule) 100 mg PO DAILY PRN PRN Reason: Constipation Ferrous Sulfate (Ferrous Sulfate 324 Mg Tablet.Dr) 324 mg PO DAILY [facility] Hydralazine HCl (Hydralazine Hcl 50 Mg Tablet) 100 mg PO BID [facility]; Protocol Isosorbide Mononitrate (Isosorbide Mononitrate 60 Mg Tab.Er.24h) 60 mg PO DAILY [facility]; Protocol Meclizine HCl (Meclizine Hcl 25 Mg Tablet) 25 mg PO DAILY PRN PRN Reason: Vertigo Nitroglycerin (Nitroglycerin 0.4 Mg Tab.Subl) 0.4 mg SUBLINGUAL Q5M PRN PRN Reason: chest pain Non-Formulary Medication (Memantine [Namenda Xr]) 21 mg PO DAILY [facility] Non-Formulary Medication (Umeclidinium [Incruse Ellipta]) 1 inhalation INHALE BEDTIME [facility] Nystatin (Nystatin Powder 15 Gm Bottle) 1 appl TOPICAL BID [facility]; Protocol Omeprazole (Omeprazole 20 Mg Capsule.Dr) 20 mg PO DAILY@0630 [facility] Ondansetron HCl (Ondansetron Hcl 4 Mg/2 Ml Vial) 4 mg IVPUSH Q8H PRN PRN Reason: Nausea and Vomiting Pregabalin (Pregabalin 50 Mg Capsule) 50 mg PO TID [facility] Rivastigmine Tartrate (Rivastigmine Tartrate 6 Mg Capsule) 6 mg PO BID [facility] Sertraline HCl (Sertraline Hcl 100 Mg Tablet) 100 mg PO DAILY [facility] Sodium Chloride (0.9 % Sodium Chloride Flush 3 Ml Syringe) 3 ml IVFLUSH QSHIFT [facility] Last Admin: 06/21/21 07:32 Dose: 3 ml Documented by: MARISELA Vitamin D (Cholecalciferol (Vitamin D3) 25 Mcg Tablet) 50 mcg PO DAILY [facility] Labs CBC & Chem 7: 06/21/21 10:01 06/21/21 10:01 Labs: Laboratory Results - last 24 hr 06/20/21 06/20/21 06/20/21 11:28 11:28 11:28 MCV 97.1 MCH 30.7 MCHC 31.6 RDW 14.5 Plt Count 205 MPV 11.7 Immature Gran % (Auto) 1.5 H Neut % (Auto) 83.2 H Lymph % (Auto) 8.9 L [place] % (Auto) 5.9 Eos % (Auto) 0.3 Baso % (Auto) 0.2 Lymph # (Auto) 1.3 [place] # (Auto) 0.9 Eos # (Auto) 0.0 Baso # (Auto) 0.0 Abs Immat Gran (auto) 0.23 H Absolute Neuts (auto) 12.5 H Absolute Nucleated RBC 0.000 Nucleated RBC % (auto) 0.0 PT INR Anion Gap 15 Estim Creat Clear Calc 11.6 Estimated GFR 13 Random Glucose 212 H Lactic Acid 2.5 H* Lactic Acid F/U @ 2Hr Lactic Acid F/U @ 4Hr Calcium 8.9 Magnesium 2.7 H Total Bilirubin 0.3 AST 56 H ALT 82 H Alkaline Phosphatase 71 Total Protein 6.1 L Albumin 3.5 Stool Occult Blood COVID-19 (TAISHA) [employer] [facility] Blood Type Antibody Screen Antibody Identification Crossmatch ([facility]) 06/20/21 06/20/21 06/20/21 14:14 14:14 14:14 MCV 97.1 MCH 30.1 MCHC 31.0 RDW 14.5 Plt Count 145 L D MPV 10.9 Immature Gran % (Auto) 1.8 H Neut % (Auto) 85.1 H Lymph % (Auto) 7.8 L [place] % (Auto) 5.0 Eos % (Auto) 0.0 Baso % (Auto) 0.3 Lymph # (Auto) 0.9 L [place] # (Auto) 0.6 Eos # (Auto) 0.0 Baso # (Auto) 0.0 Abs Immat Gran (auto) 0.22 H Absolute Neuts (auto) 10.2 H Absolute Nucleated RBC 0.000 Nucleated RBC % (auto) 0.0 PT 15.3 H INR 1.3 H Anion Gap Estim Creat Clear Calc Estimated GFR Random Glucose Lactic Acid Lactic Acid F/U @ 2Hr 2.3 H* Lactic Acid F/U @ 4Hr Calcium Magnesium Total Bilirubin AST ALT Alkaline Phosphatase Total Protein Albumin Stool Occult Blood COVID-19 (TAISHA) [employer] [facility] Blood Type Antibody Screen Antibody Identification Crossmatch ([facility]) 06/20/21 06/20/21 06/20/21 15:49 16:53 17:10 MCV MCH MCHC RDW Plt Count MPV Immature Gran % (Auto) Neut % (Auto) Lymph % (Auto) [place] % (Auto) Eos % (Auto) Baso % (Auto) Lymph # (Auto) [place] # (Auto) Eos # (Auto) Baso # (Auto) Abs Immat Gran (auto) Absolute Neuts (auto) Absolute Nucleated RBC Nucleated RBC % (auto) PT INR Anion Gap Estim Creat Clear Calc Estimated GFR Random Glucose Lactic Acid Lactic Acid F/U @ 2Hr Lactic Acid F/U @ 4Hr 0.7 Calcium Magnesium Total Bilirubin AST ALT Alkaline Phosphatase Total Protein Albumin Stool Occult Blood COVID-19 (TAISHA) Positive A [employer] [facility] See Note Blood Type A Positive Antibody Screen POSITIVE Antibody Identification Anti-c Crossmatch ([facility]) See Detail 06/20/21 17:51 MCV MCH MCHC RDW Plt Count MPV Immature Gran % (Auto) Neut % (Auto) Lymph % (Auto) [place] % (Auto) Eos % (Auto) Baso % (Auto) Lymph # (Auto) [place] # (Auto) Eos # (Auto) Baso # (Auto) Abs Immat Gran (auto) Absolute Neuts (auto) Absolute Nucleated RBC Nucleated RBC % (auto) PT INR Anion Gap Estim Creat Clear Calc Estimated GFR Random Glucose Lactic Acid Lactic Acid F/U @ 2Hr Lactic Acid F/U @ 4Hr Calcium Magnesium Total Bilirubin AST ALT Alkaline Phosphatase Total Protein Albumin Stool Occult Blood NEGATIVE COVID-19 (TAISHA) COVID-19 Clin Com Blood Type Antibody Screen Antibody Identification Crossmatch ([facility]) Microbiology Microbiology Results: Microbiology 06/20/21 13:51 Blood Culture - Preliminary Blood - Venous Prelim: GPC Gram Stain only Assessment and Plan (1) SARS-CoV-2 positive: Status: Acute (2) Hematoma: Status: Acute Assessment and Plan: 80-year-old female with past medical history significant for AFib on Eliquis, CHF who presents to the hospital with bleeding from a laceration her head found to have a large hematoma. 1.? Acute blood loss anemia -? secondary to hematoma s/p 2 units of PRBC-h/h 9 -? stool occult blood negative hold eliquis for now 2. hematoma of the head -? patient had a mechanical fall about 3 weeks ago, now has CT showing large central and right occipital hematoma with laceration and nondisplaced left occipital fracture consult General surgery-Recommend observation of the hematoma off anticoagulation -? monitor CBC 3.? COVID positive - not? hypoxic, -? positive 2 weeks ago but continues to have cough -? will monitor respiratory status 4.? ? CHF -? not in exacerbation and not on a diuretic -? continue home meds 5? AFib -? continue amiodarone, hold apixaban given the bleeding ?DVT prophylaxis: SCDs Quality Stroke Does the patient have a stroke diagnosis?: No VTE Prior VTE?: No VTE Risk Level:: Medical - moderate - high VTE Device Contraindication: N/A - Device Ordered VTE Drug Contraindication: N/A - Med Ordered
[2021-06-21] MEDS: Isosorbide Mononitrate 60 MG TAB.ER.24H PO (10:06)
[2021-06-21 10:07] LABS: MANUAL DIFF FLAG NO
[2021-06-21] MEDS: Amiodarone HCL 200 MG TABLET PO (10:07)
[2021-06-21] MEDS: hydrALAZINE HCl 50 MG TABLET 100 MG PO ×2 (10:07→22:11)
[2021-06-21] MEDS: Cholecalciferol (Vitamin D3) 25 MCG TABLET 50 MCG PO (10:07)
[2021-06-21] MEDS: Atorvastatin Calcium 20 MG TABLET PO (10:07)
[2021-06-21] MEDS: Ferrous Sulfate 324 MG TABLET.DR PO (10:07)
[2021-06-21] MEDS: Sertraline HCL 100 MG TABLET PO (10:07)
[2021-06-21] MEDS: amLODIPine Besylate 10 MG TABLET PO (10:07)
--- NOTE | 2021-06-21 10:21 | PM.CNGS ---
History of Present Illness Consult details Consult date: 06/21/21 Requesting physician: Amber Turk Narrative: 80-year-old female patient with history of atrial fibrillation, chronic kidney disease stage 4, aortic stenosis s/p TAVR, diabetes mellitus type 2, currently on Eliquis presenting following a fall a month ago resulting in a laceration to the back of the head after a fall. This occurred after a period of dizziness and weakness. She apparently evaluated in the emergency department with a negative workup. She was doing okay until approximately 3 days prior to presentation she developed increased bleeding from the back her head which could not stop for 3 days. She developed a lump in the back of her head subsequent became weak, faint, and very pale. She subsequently returned to the emergency department for further evaluation. CT of the head performed in the emergency department revealed no intracranial bleed however a hematoma was noted in the subcutaneous tissue over the occiput. She was also found to have a laceration which was repaired by the ED staff. Patient was found to be very anemic due to acute blood loss and received 2 units of packed RBCs. She is admitted to the hospitalist service to trend her blood count. She is currently off her Eliquis. Routine COVID-19 testing was positive. Review of Systems Review of Systems: Yes all other systems are reviewed and are negative Constitutional: Constitutional: Reports fatigue, Reports frequent falls and Reports weakness ENT: Reports dizziness Cardiovascular: Cardiovascular: Denies chest pain, Denies rapid heart rate, Denies palpitations and Denies slow heart rate Respiratory: Respiratory: Denies chest congestion, Denies cough, Denies pain on inspiration and Denies wheezing Gastrointestinal: Gastrointestinal: Denies abdominal pain, Denies bloating, Denies change in stool character, Denies constipation, Denies diarrhea, Denies nausea, Denies vomiting and Denies hematemesis Musculoskeletal: Musculoskeletal: Denies back pain, Denies arthralgias, Denies joint swelling and Denies numbness Integumentary/Breasts: Skin/Breast: Denies change in pigmentation, Denies erythema and Denies rash Neurologic: Reports dizziness, Reports frequent falls, Denies numbness and Reports weakness Endocrine: Endocrine: Reports fatigue and Denies palpitations Hematologic/Lymphatic: Hematologic/Lymphatic: Reports easy bleeding, Reports easy bruising and Denies lymphadenopathy Allergic/Immunologic: Allergic/Immunologic: Denies wheezing PMFSH Past Medical History Medical History (HFpEF) heart failure with preserved ejection fraction Acute blood loss anemia Afib Anemia Anxiety Aortic valve stenosis Asthma Bacteremia Bacteremia Bacteremia Basal cell carcinoma Benign essential hypertension Cellulitis Chronic kidney disease, stage 4 (severe) COPD (chronic obstructive pulmonary disease) Diabetic polyneuropathy Fracture Gallstones Hospital discharge follow-up Hypernatremia Melanoma Mild cognitive impairment with memory loss Nocturnal hypoxemia Obesity (BMI 30-39.9) Paroxysmal atrial fibrillation Pure hypercholesterolemia Thrombocytopenia Type 2 diabetes mellitus with diabetic chronic kidney disease Family History Family History Father Medical history unknown Mother Acute myeloid leukemia Cancer Maternal Grandmother Myocardial infarction Brother Myocardial infarction Sister Brain aneurysm Surgical History Surgical History History of cardiac catheterization History of colonoscopy History of eye surgery 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) Stented coronary artery Social History Social History Household Members: Spouse and Family Housing: House Are you a primary adult care manager to a significant other at home: No Do you presently have visiting nurse or other home services: Yes Alcohol intake: never Patient Tobacco Use Status: Former Tobacco user Years Smoked: 19 e-Cigarette/Vaping Use: Never Used Second Hand Smoke Exposure: Yes Advance Directives: Yes Advance Directives on File: Yes Advance Directives Date on File: 07/24/20 service: No Current occupational status: retired Cognitive needs: No Hearing needs: No Vision needs: No Meds Allergies Allergy/AdvReac Type Severity Reaction Status Date / Time Penicillins [PENICILLINS] Allergy Severe HIVES/SWELL Verified 06/16/21 12:02 ING Active Medications: Current Medications Acetaminophen (Acetaminophen 325 Mg Tablet) 650 mg PO Q6H PRN PRN Reason: Pain, Mild (Pain Scale 1-3) Albuterol Sulfate (Albuterol Sulfate 90 Mcg 8 Gm Inhaler) 2 puff INHALE Q6H PRN PRN Reason: Wheezing Amiodarone HCl (Amiodarone Hcl 200 Mg Tablet) 200 mg PO DAILY [facility] Last Admin: 06/21/21 10:07 Dose: 200 mg Documented by: Amlodipine Besylate (Amlodipine Besylate 10 Mg Tablet) 10 mg PO DAILY [facility]; Protocol Last Admin: 06/21/21 10:07 Dose: 10 mg Documented by: Atorvastatin Calcium (Atorvastatin Calcium 20 Mg Tablet) 20 mg PO DAILY [facility] Last Admin: 06/21/21 10:07 Dose: 20 mg Documented by: Calcitriol (Calcitriol 0.25 Mcg Capsule) 0.25 mcg PO Q2D [facility] Docusate Sodium (Docusate Sodium 100 Mg Capsule) 100 mg PO DAILY PRN PRN Reason: Constipation Ferrous Sulfate (Ferrous Sulfate 324 Mg Tablet.) 324 mg PO DAILY [facility] Last Admin: 06/21/21 10:07 Dose: 324 mg Documented by: Hydralazine HCl (Hydralazine Hcl 50 Mg Tablet) 100 mg PO BID [facility]; Protocol Last Admin: 06/21/21 10:07 Dose: 100 mg Documented by: Isosorbide Mononitrate (Isosorbide Mononitrate 60 Mg Tab.Er.24h) 60 mg PO DAILY [facility]; Protocol Last Admin: 06/21/21 10:06 Dose: 60 mg Documented by: Meclizine HCl (Meclizine Hcl 25 Mg Tablet) 25 mg PO DAILY PRN PRN Reason: Vertigo Nitroglycerin (Nitroglycerin 0.4 Mg Tab.Subl) 0.4 mg SUBLINGUAL Q5M PRN PRN Reason: chest pain Non-Formulary Medication (Memantine [Namenda Xr]) 21 mg PO DAILY [facility] Nystatin (Nystatin Powder 15 Gm Bottle) 1 appl TOPICAL BID [facility]; Protocol Omeprazole (Omeprazole 20 Mg Capsule.) 20 mg PO DAILY@0630 [facility] Ondansetron HCl (Ondansetron Hcl 4 Mg/2 Ml Vial) 4 mg IVPUSH Q8H PRN PRN Reason: Nausea and Vomiting Pregabalin (Pregabalin 50 Mg Capsule) 50 mg PO TID [facility] Rivastigmine Tartrate (Rivastigmine Tartrate 6 Mg Capsule) 6 mg PO BID [facility] Sertraline HCl (Sertraline Hcl 100 Mg Tablet) 100 mg PO DAILY [facility] Last Admin: 06/21/21 10:07 Dose: 100 mg Documented by: Sodium Chloride (0.9 % Sodium Chloride Flush 3 Ml Syringe) 3 ml IVFLUSH QSHIFT [facility] Last Admin: 06/21/21 07:32 Dose: 3 ml Documented by: Tiotropium [place] (Tiotropium [place] 18 Mcg Cap.W.Dev) 1 puff INHALE RDAILY [facility] Vitamin D (Cholecalciferol (Vitamin D3) 25 Mcg Tablet) 50 mcg PO DAILY [facility] Last Admin: 06/21/21 10:07 Dose: 50 mcg Documented by: Home Medications Medication Instructions Recorded Confirmed Last Taken Type acetaminophen 650 mg tablet 650 mg PO Q4H PRN 03/05/20 06/21/21 Unknown History cholecalciferol (vitamin D3) 50 2,000 unit PO DAILY 03/05/20 06/21/21 03/04/20 History mcg (2,000 unit) capsule memantine 21 mg capsule 21 mg PO DAILY 03/05/20 06/21/21 03/04/20 History sprinkle,extended release 24hr (Namenda XR) albuterol sulfate 90 mcg/actuation 2 puff INHALATION Q6H PRN g 04/06/20 06/21/21 Unknown History aerosol inhaler (ProAir HFA) meclizine 12.5 mg tablet 25 mg PO NEEDED 05/19/20 06/21/21 Unknown History umeclidinium 62.5 mcg/actuation 1 inh INHALATION BEDTIME 06/10/20 06/21/21 Unknown History blister powder for inhalation (Incruse Ellipta) nystatin 100,000 unit/gram topical 1 appl TOPICAL BID 05/08/21 06/21/21 Unknown History powder rivastigmine tartrate 6 mg capsule 6 mg PO BID 05/12/21 06/21/21 Unknown History isosorbide mononitrate 60 mg 1 tab PO DAILY 06/21/21 06/21/21 Unknown History tablet,extended release 24 hr Physical Exam Vital Signs: Vital Signs: Last Vital Signs Temp 98.4 F 06/21/21 08:18 Pulse 58 06/21/21 10:05 Resp 14 06/21/21 10:05 BP 150/63 H 06/21/21 10:05 Pulse Ox 96 06/21/21 10:05 BMI result Body Mass Index 30.2 Const: General: well developed Nutritional Appearance: well nourished Orientation/consciousness: patient oriented x3 Limitations: no limitations HENMT: Other: palpable hematoma and scalp wound with no active bleeding noted, minimal tenderness Resp: Effort & Inspection: normal respiratory effort Skin: General skin exam: no rashes or lesions noted Neuro: General: patient oriented x3 Extrem: General: Yes no clubbing, cyanosis or edema Results Labs Result diagrams: 06/22/21 04:34 06/22/21 04:34 Labs: Abnormal lab results 06/20/21 06/20/21 06/20/21 Range/Units 11:28 11:28 11:28 WBC 15.0 H (4.8-10.8) X10*3/uL RBC 2.77 L (4.20-5.50) X10*6/uL Hgb 8.5 L (12.0-16.0) g/dl Hct 26.9 L (37.0-47.0) % Plt Count (160-400) X10*3/uL Immature Gran % (Auto) 1.5 H (0.0-0.4) % Neut % (Auto) 83.2 H (45-73) % Lymph % (Auto) 8.9 L (20-40) % Lymph # (Auto) (1.2-4.9) X10*3/uL Abs Immat Gran (auto) 0.23 H (0.00-0.03) X10*3/uL Absolute Neuts (auto) 12.5 H (2.0-8.3) x10*3/uL PT (9.9-13.0) SEC INR (0.9-1.1) BUN 42 H (9-16) mg/dL Creatinine 3.35 H (0.5-1.4) mg/dL Random Glucose 212 H (60-115) mg/dL Lactic Acid 2.5 H* (0.5-2.0) mmol/L Lactic Acid F/U @ 2Hr (0.5-2.0) mmol/L Magnesium 2.7 H (1.6-2.6) mg/dL AST 56 H (5-31) U/L ALT 82 H (0-31) U/L Total Protein 6.1 L (6.5-8.0) g/dL COVID-19 (TAISHA) (Negative) Crossmatch ([facility]) 06/20/21 06/20/21 06/20/21 Range/Units 14:14 14:14 14:14 WBC 11.9 H (4.8-10.8) X10*3/uL RBC 2.39 L (4.20-5.50) X10*6/uL Hgb 7.2 L (12.0-16.0) g/dl Hct 23.2 L (37.0-47.0) % Plt Count 145 L D (160-400) X10*3/uL Immature Gran % (Auto) 1.8 H (0.0-0.4) % Neut % (Auto) 85.1 H (45-73) % Lymph % (Auto) 7.8 L (20-40) % Lymph # (Auto) 0.9 L (1.2-4.9) X10*3/uL Abs Immat Gran (auto) 0.22 H (0.00-0.03) X10*3/uL Absolute Neuts (auto) 10.2 H (2.0-8.3) x10*3/uL PT 15.3 H (9.9-13.0) SEC INR 1.3 H (0.9-1.1) BUN (9-16) mg/dL Creatinine (0.5-1.4) mg/dL Random Glucose (60-115) mg/dL Lactic Acid (0.5-2.0) mmol/L Lactic Acid F/U @ 2Hr 2.3 H* (0.5-2.0) mmol/L Magnesium (1.6-2.6) mg/dL AST (5-31) U/L ALT (0-31) U/L Total Protein (6.5-8.0) g/dL COVID-19 (TAISHA) (Negative) Crossmatch ([facility]) 06/20/21 06/20/21 06/21/21 Range/Units 15:49 17:10 02:50 WBC (4.8-10.8) X10*3/uL RBC (4.20-5.50) X10*6/uL Hgb 7.3 L (12.0-16.0) g/dl Hct 23.4 L (37.0-47.0) % Plt Count (160-400) X10*3/uL Immature Gran % (Auto) (0.0-0.4) % Neut % (Auto) (45-73) % Lymph % (Auto) (20-40) % Lymph # (Auto) (1.2-4.9) X10*3/uL Abs Immat Gran (auto) (0.00-0.03) X10*3/uL Absolute Neuts (auto) (2.0-8.3) x10*3/uL PT (9.9-13.0) SEC INR (0.9-1.1) BUN (9-16) mg/dL Creatinine (0.5-1.4) mg/dL Random Glucose (60-115) mg/dL Lactic Acid (0.5-2.0) mmol/L Lactic Acid F/U @ 2Hr (0.5-2.0) mmol/L Magnesium (1.6-2.6) mg/dL AST (5-31) U/L ALT (0-31) U/L Total Protein (6.5-8.0) g/dL COVID-19 (TAISHA) Positive A (Negative) Crossmatch ([facility]) See Detail Short CBC 06/20/21 06/20/21 06/21/21 Range/Units 11:28 14:14 02:50 WBC 15.0 H 11.9 H (4.8-10.8) X10*3/uL Hgb 8.5 L 7.2 L 7.3 L (12.0-16.0) g/dl Hct 26.9 L 23.2 L 23.4 L (37.0-47.0) % Plt Count 205 145 L D (160-400) X10*3/uL BMP 06/20/21 11:28 Sodium 140 Potassium 4.0 Chloride 106 Carbon Dioxide 23 BUN 42 H Creatinine 3.35 H Calcium 8.9 Liver Function 06/20/21 Range/Units 11:28 Total Bilirubin 0.3 (0.0-1.0) mg/dL AST 56 H (5-31) U/L ALT 82 H (0-31) U/L Alkaline Phosphatase 71 (39-117) U/L Albumin 3.5 (3.5-5.0) g/dL All other labs normal. Assessment and Plan (1) Laceration of skin of scalp: Status: Acute (2) Hematoma: Status: Acute (3) History of recent fall: Status: Acute 80-year-old female patient with history of falls on oral anticoagulation now with a hematoma in the occiput after a fall approximately 1 month ago. Laceration scalp was treated by ED physician. Patient admitted for monitoring of hemoglobin hematocrit. CT of head reviewed. Recommend observation of the hematoma off anticoagulation. Would not recommend surgical intervention at this time. Will monitor during hospitalization. Procedures Date of Service Date of Service: 06/21/21
[2021-06-21 10:25] LABS: Basophils Percent Auto 0.2 % (0-2); Neutrophils Absolute Auto 6.1 x10*3/uL (2.0-8.3); PLT CLUMP 1; SCAN SMEAR FLAG 1
[2021-06-21 10:27] LABS: Eosinophils Percent Auto 0.4 % (0-4); Hematocrit 28.7 % (37.0-47.0); Hemoglobin 9.1 g/dl (12.0-16.0); Imm Gran Abs Auto 0.18 X10*3/uL (0.00-0.03); Imm Gran Pct Auto 2.2 % (0.0-0.4); Lymphocytes Percent Auto 12.3 % (20-40); Mean Corpuscular HGB Conc 31.7 g/dl (31.0-35.0); Mean Corpuscular Hemoglobin 30.1 pg (27.0-33.0); Mean Platelet Volume 11.5 fL (9.4-12.3); Monocytes Absolute Auto 0.8 X10*3/uL (0.1-1.2); Monocytes Percent Auto 9.8 % (2-11); Neutrophils Percent Auto 75.1 % (45-73); Red Blood Count 3.02 X10*6/uL (4.20-5.50); Red Cell Distribution Width 14.2 % (11.0-16.0)
[2021-06-21 10:28] LABS: Platelet Count 96 X10*3/uL (160-400); White Blood Count 8.1 X10*3/uL (4.8-10.8)
[2021-06-21 10:32] LABS: Anion Gap 12 (12-20); Blood Urea Nitrogen 37 mg/dL (9-16); Calcium 8.5 mg/dL (8.4-10.2); Carbon Dioxide 25 mmol/L (22-29); Chloride 114 mmol/L (96-108); Creatinine Clr Calc Pharmacy 13.9; Estimated Glomerular Filt Rate 16; Glucose Random 86 mg/dL (60-115); Potassium 4.6 mmol/L (3.3-5.1); Sodium 146 mmol/L (135-145)
[2021-06-21] MEDS: calcitrioL 0.25 MCG CAPSULE PO (10:45)
[2021-06-21] MEDS: Pregabalin 50 MG CAPSULE PO ×2 (10:45→16:59)
--- NOTE | 2021-06-21 13:49 | MHC.CM.PN ---
PATIENT LIVES WITH HER SON. HCP IS ON FILE AND VERIFIED. SHE HAS A ROLLATOR IN THE HOME. SHE IS ALSO ACTIVE WITH [facility] AND A REFERRAL IS PLACED FOR AGENCY TO FOLLOW. SHE HAS [facility] AND HOME CLEANING SERVICES PATIENT IS COVID VACCINATED AND HAS HAD HEWR BOOSTER ([employer]) VACCINE INFO IS FOUND IN EXPANSE. ELAM 06/21 IN CHART
[2021-06-21] MEDS: Lactated Ringers 1,000 ML 50 ML IVCONT (22:12)
[2021-06-22] MEDS: 0.9 % Sodium Chloride Flush 3 ML SYRINGE IVFLUSH (00:38)
[2021-06-22 02:47] LABS: Appearance Urine HAZY; Color Urine YELLOW; Glucose Urine UA NEG (NEG); Leukocyte Esterase Urine 1+ (NEG); Nitrite Urine NEG (NEG); Specific Gravity - Urine 1.025 (1.005-1.025); UACC Culture Trigger YES; Urine Blood 1+ (NEG); Urine Ketones NEG (NEG); Urine Protein 1+ MG/DL (NEG-TRACE)
[2021-06-22 02:56] LABS: Bacteria Urine 4+ /LPF; Mucus Urine 1+ /LPF; Squamous Epithelial Cell Urine 1+ /LPF
[2021-06-22 05:12] LABS: Hematocrit 28.6 % (37.0-47.0); Hemoglobin 8.9 g/dl (12.0-16.0); Mean Corpuscular HGB Conc 31.1 g/dl (31.0-35.0); Mean Corpuscular Hemoglobin 30.3 pg (27.0-33.0); Mean Corpuscular Volume 97.3 fL (80.0-98.0); Mean Platelet Volume 11.4 fL (9.4-12.3); Red Blood Count 2.94 X10*6/uL (4.20-5.50); Red Cell Distribution Width 14.6 % (11.0-16.0); White Blood Count 6.6 X10*3/uL (4.8-10.8)
[2021-06-22 05:23] LABS: Platelet Count 90 X10*3/uL (160-400)
[2021-06-22 05:41] LABS: Anion Gap 11 (12-20); Blood Urea Nitrogen 39 mg/dL (9-16); Calcium 8.9 mg/dL (8.4-10.2); Carbon Dioxide 24 mmol/L (22-29); Chloride 115 mmol/L (96-108); Estimated Glomerular Filt Rate 17; Glucose Random 139 mg/dL (60-115); Potassium 4.8 mmol/L (3.3-5.1); Sodium 145 mmol/L (135-145)
[2021-06-22 06:26] VITALS: BP 130/53; PULSE 63; RESP 17; O2SAT 96
[2021-06-22] MEDS: Omeprazole 20 MG CAPSULE.DR PO (06:32)
[2021-06-22] MEDS: Acetaminophen 325 MG TABLET 650 MG PO ×2 (06:32→17:43)
[2021-06-22] MEDS: amLODIPine Besylate 10 MG TABLET PO (08:52)
[2021-06-22] MEDS: Pregabalin 50 MG CAPSULE PO ×3 (08:52→21:04)
[2021-06-22] MEDS: Atorvastatin Calcium 20 MG TABLET PO (08:52)
[2021-06-22] MEDS: Cholecalciferol (Vitamin D3) 25 MCG TABLET 50 MCG PO (08:52)
[2021-06-22] MEDS: Sertraline HCL 100 MG TABLET PO (08:52)
[2021-06-22] MEDS: Ferrous Sulfate 324 MG TABLET.DR PO (08:52)
[2021-06-22] MEDS: Isosorbide Mononitrate 60 MG TAB.ER.24H PO (08:52)
[2021-06-22] MEDS: Amiodarone HCL 200 MG TABLET PO (08:52)
[2021-06-22] MEDS: hydrALAZINE HCl 50 MG TABLET 100 MG PO ×2 (08:52→21:02)
[2021-06-22 08:57] VITALS: BP 128/51; PULSE 48; RESP 12; O2SAT 95
--- NOTE | 2021-06-22 10:03 | PM.CNNEP ---
History of Present Illness Reason for Consult Consult date: 06/22/21 Chief Complaint Chief complaint: Hematoma, Anemia, cp History of Present Illness Narrative: 80-year-old female with a history of CHF with preserved ejection fraction, AFib, anemia, anxiety, aortic valve stenosis status post TAVR, asthma, CAD, CKD, COPD, diabetes,? hyperlipidemia among others who presents the hospital with complaints of bleeding from her laceration head.? Patient reports that about 3 weeks ago she had a mechanical fall and developed a lump in her head.? About 4 days ago she started bleeding profusely from this lump.? She tried to treated at home with pads and sleeping upright in a chair but she continued to have profuse bleeding therefore came into the hospital.? She is reporting that she is feeling dizzy, generalized weakness, but otherwise has no headache, change in vision, no chest pain and no shortness of breath.? She was diagnosed with COVID 19? about 2 weeks ago, but? only has a cough and feels no shortness of breath, denies any fever or chills, no abdominal pain nausea or vomiting, no diarrhea constipation, no urinary symptoms and no lower extremity edema.? She is well known to me for along time She uses diuretics as needed. Her daughter is very involved with her care Review of Systems Review of Systems Denies any new complaint of chest pain or shortness of breath or abdominal pain or fever or chills or nausea or vomiting Denies any cough Denies any weakness or numbness. Yes all other systems are reviewed and are negative Constitutional: Reports fatigue, Reports frequent falls and Reports weakness Reports dizziness Cardiovascular: Denies chest pain, Denies rapid heart rate, Denies palpitations and Denies slow heart rate Respiratory: Denies chest congestion, Denies cough, Denies pain on inspiration and Denies wheezing Gastrointestinal: Denies abdominal pain, Denies bloating, Denies change in stool character, Denies constipation, Denies diarrhea, Denies nausea, Denies vomiting and Denies hematemesis Musculoskeletal: Denies back pain, Denies arthralgias, Denies joint swelling and Denies numbness Skin/Breast: Denies change in pigmentation, Denies erythema and Denies rash Reports dizziness, Reports frequent falls, Denies numbness and Reports weakness Endocrine: Reports fatigue and Denies palpitations Hematologic/Lymphatic: Reports easy bleeding, Reports easy bruising and Denies lymphadenopathy Allergic/Immunologic: Denies wheezing PMFSH Past Medical History Medical History (Updated 07/06/21 @ 12:58 by Stephanie Hills NP) (HFpEF) heart failure with preserved ejection fraction Acute blood loss anemia Afib Anxiety Aortic valve stenosis Asthma Bacteremia Bacteremia Bacteremia Basal cell carcinoma Benign essential hypertension Cellulitis Chronic kidney disease, stage 4 (severe) COPD (chronic obstructive pulmonary disease) Diabetic polyneuropathy Fracture Gallstones Hospital discharge follow-up Hypernatremia Melanoma Mild cognitive impairment with memory loss Nocturnal hypoxemia Obesity (BMI 30-39.9) Paroxysmal atrial fibrillation Pure hypercholesterolemia Pyuria Thrombocytopenia Type 2 diabetes mellitus with diabetic chronic kidney disease Family History Family History Father Medical history unknown Mother Acute myeloid leukemia Cancer Maternal Grandmother Myocardial infarction Brother Myocardial infarction Sister Brain aneurysm Surgical History Surgical History History of cardiac catheterization History of colonoscopy History of eye surgery 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) Stented coronary artery Social History Social History Household Members: Children Housing: House Are you a primary rn complex care to a significant other at home: No Alcohol intake: never Patient Tobacco Use Status: Former Tobacco user Years Smoked: 19 e-Cigarette/Vaping Use: Never Used Second Hand Smoke Exposure: Yes Advance Directives Date on File: 07/24/20 service: No Current occupational status: retired Cognitive needs: No Hearing needs: No Vision needs: No Meds Allergies Allergy/AdvReac Type Severity Reaction Status Date / Time Penicillins [PENICILLINS] Allergy Severe HIVES/SWELL Verified 06/16/21 12:02 ING Active Medications: Current Medications Acetaminophen (Acetaminophen 325 Mg Tablet) 650 mg PO Q6H PRN PRN Reason: Pain, Mild (Pain Scale 1-3) Last Admin: 06/22/21 06:32 Dose: 650 mg Documented by: Albuterol Sulfate (Albuterol Sulfate 90 Mcg 8 Gm Inhaler) 2 puff INHALE Q6H PRN PRN Reason: Wheezing Amiodarone HCl (Amiodarone Hcl 200 Mg Tablet) 200 mg PO DAILY [facility] Last Admin: 06/22/21 08:52 Dose: 200 mg Documented by: Amlodipine Besylate (Amlodipine Besylate 10 Mg Tablet) 10 mg PO DAILY [facility]; Protocol Last Admin: 06/22/21 08:52 Dose: 10 mg Documented by: Atorvastatin Calcium (Atorvastatin Calcium 20 Mg Tablet) 20 mg PO DAILY [facility] Last Admin: 06/22/21 08:52 Dose: 20 mg Documented by: Calcitriol (Calcitriol 0.25 Mcg Capsule) 0.25 mcg PO Q2D [facility] Last Admin: 06/21/21 10:45 Dose: 0.25 mcg Documented by: Docusate Sodium (Docusate Sodium 100 Mg Capsule) 100 mg PO DAILY PRN PRN Reason: Constipation Ferrous Sulfate (Ferrous Sulfate 324 Mg Tablet.) 324 mg PO DAILY [facility] Last Admin: 06/22/21 08:52 Dose: 324 mg Documented by: Hydralazine HCl (Hydralazine Hcl 50 Mg Tablet) 100 mg PO BID [facility]; Protocol Last Admin: 06/22/21 08:52 Dose: 100 mg Documented by: Lactated Ringer's (Lr) 1,000 mls @ 50 mls/hr IVCONT .Q20H [facility] Last Admin: 06/21/21 22:12 Dose: 50 mls/hr Documented by: Isosorbide Mononitrate (Isosorbide Mononitrate 60 Mg Tab.Er.24h) 60 mg PO DAILY [facility]; Protocol Last Admin: 06/22/21 08:52 Dose: 60 mg Documented by: Meclizine HCl (Meclizine Hcl 25 Mg Tablet) 25 mg PO DAILY PRN PRN Reason: Vertigo Nitroglycerin (Nitroglycerin 0.4 Mg Tab.Subl) 0.4 mg SUBLINGUAL Q5M PRN PRN Reason: chest pain Non-Formulary Medication (Memantine [Namenda Xr]) 21 mg PO DAILY [facility] Nystatin (Nystatin Powder 15 Gm Bottle) 1 appl TOPICAL BID [facility]; Protocol Last Admin: 06/22/21 09:02 Dose: Not Given Documented by: Omeprazole (Omeprazole 20 Mg Capsule.) 20 mg PO DAILY@0630 [facility] Last Admin: 06/22/21 06:32 Dose: 20 mg Documented by: Ondansetron HCl (Ondansetron Hcl 4 Mg/2 Ml Vial) 4 mg IVPUSH Q8H PRN PRN Reason: Nausea and Vomiting Pregabalin (Pregabalin 50 Mg Capsule) 50 mg PO TID [facility] Last Admin: 06/22/21 08:52 Dose: 50 mg Documented by: Rivastigmine Tartrate (Rivastigmine Tartrate 6 Mg Capsule) 6 mg PO BID [facility] Last Admin: 06/22/21 08:52 Dose: 6 mg Documented by: Sertraline HCl (Sertraline Hcl 100 Mg Tablet) 100 mg PO DAILY [facility] Last Admin: 06/22/21 08:52 Dose: 100 mg Documented by: Sodium Chloride (0.9 % Sodium Chloride Flush 3 Ml Syringe) 3 ml IVFLUSH QSHIFT [facility] Last Admin: 06/22/21 09:02 Dose: Not Given Documented by: Tiotropium [place] (Tiotropium [place] 18 Mcg Cap.W.Dev) 1 puff INHALE RDAILY [facility] Vitamin D (Cholecalciferol (Vitamin D3) 25 Mcg Tablet) 50 mcg PO DAILY [facility] Last Admin: 06/22/21 08:52 Dose: 50 mcg Documented by: Home Medications Medication Instructions Recorded Confirmed Last Taken Type cholecalciferol (vitamin D3) 50 2,000 unit PO DAILY 03/05/20 06/21/21 03/04/20 History mcg (2,000 unit) capsule memantine 21 mg capsule 21 mg PO DAILY 03/05/20 06/21/21 03/04/20 History sprinkle,extended release 24hr (Namenda XR) albuterol sulfate 90 mcg/actuation 2 puff INHALATION Q6H PRN g 04/06/20 06/21/21 Unknown History aerosol inhaler (ProAir HFA) meclizine 12.5 mg tablet 25 mg PO NEEDED 05/19/20 06/21/21 Unknown History umeclidinium 62.5 mcg/actuation 1 inh INHALATION BEDTIME 06/10/20 06/21/21 Unknown History blister powder for inhalation (Incruse Ellipta) nystatin 100,000 unit/gram topical 1 appl TOPICAL BID 05/08/21 06/21/21 Unknown History powder rivastigmine tartrate 6 mg capsule 6 mg PO BID 05/12/21 06/21/21 Unknown History isosorbide mononitrate 60 mg 1 tab PO DAILY 06/21/21 06/21/21 Unknown History tablet,extended release 24 hr acetaminophen 325 mg tablet 650 mg PO Q4H PRN 07/01/21 07/01/21 Unknown History Physical Exam Vital Signs: Last Vital Signs Temp 98.2 F 06/21/21 21:22 Pulse 48 L 06/22/21 08:57 Resp 12 06/22/21 08:57 BP 128/51 L 06/22/21 08:57 Pulse Ox 95 06/22/21 08:57 BMI result Body Mass Index 30.2 Const General: cooperative, no acute distress and well developed Nutritional Appearance: well nourished Orientation/consciousness: patient oriented x3 Limitations: no limitations HENMT Other: palpable hematoma and scalp wound with no active bleeding noted, minimal tenderness Eyes General: appearance normal, both eyes and all related structures Pupils: Equal, round and reactive pupils present Resp Effort & Inspection: normal respiratory effort Auscultation: clear to auscultation bilaterally Cardio Rate: regular rate Rhythm: regular rhythm GI Palpation (GI): Soft to palpation and nontender Auscultation: normal bowel sounds Skin General skin exam: no rashes or lesions noted Neuro General: patient oriented x3 Cranial nerves: Yes Equal, round and reactive pupils present Cognition (Neuro): normal cognition Extrem General: Yes normal to inspection, Yes no clubbing, cyanosis or edema and Yes no pedal edema Results Lab Results Result Diagrams: 07/05/21 06:01 07/06/21 05:34 Lab results: Chemistry 06/20/21 06/21/21 06/22/21 11:28 10:01 04:34 Sodium 140 146 H 145 Potassium 4.0 4.6 4.8 Carbon Dioxide 23 25 24 BUN 42 H 37 H 39 H Creatinine 3.35 H 2.79 H 2.77 H Calcium 8.9 8.5 8.9 Hematology 06/20/21 06/20/21 06/21/21 11:28 14:14 02:50 WBC 15.0 H 11.9 H Hgb 8.5 L 7.2 L 7.3 L Plt Count 205 145 L D 06/21/21 06/22/21 10:01 04:34 WBC 8.1 6.6 Hgb 9.1 L D 8.9 L Plt Count 96 L D 90 L Urinalysis 06/22/21 02:30 Urine Color YELLOW Urine Appearance HAZY Urine pH 6.0 Ur Specific [place] 1.025 Urine Protein 1+ H Urine Glucose (UA) NEG Urine Ketones NEG Urine Blood 1+ H Urine Nitrite NEG Ur Leukocyte Esterase 1+ H Urine RBC 1-4 Urine WBC 15-29 H Ur Squamous Epith Cells 1+ Assessment and Plan (1) SARS-CoV-2 positive: Status: Acute (2) Hematoma: Status: Acute Plan 80-year-old female with past medical history significant for AFib on Eliquis, CHF who presents to the hospital with bleeding from a laceration her head found to have a large hematoma and CKD with superimposed LINDA LINDA due to hypoperfusion Renal function has improved and close to baseline Keep I > O for now and watch creatinine Acute blood loss anemia -? secondary to hematoma s/p 2 units of PRBC-h/h 9 -? stool occult blood negative hold eliquis for now hematoma of the head COVID positive - not? hypoxic, -? positive 2 weeks ago but continues to have cough -? will monitor respiratory status ?h/o CHF s/o Value surgery a year ago -? not in exacerbation and not on a diuretic on a regular basis. USes PRN -? continue home meds AFib -? continue amiodarone, hold apixaban given the bleeding Procedures Date of Service Date of Service: 06/22/21
--- NOTE | 2021-06-22 10:58 | PC.NURSE ---
Pt is A&Ox3, no complaints of pain at this time. NSR in the 60's on the monitor, PT in room, ambulated w/PT. Pt provided hospital phone for phone calls at this time. Asked pt is her family could bring in her Namenda 21mg as our pharmacy doesn't stock it, she states she will have family bring it along with some of her belongings. Awaiting bed assignment at this time, call rosales within reach. Will continue to monitor.
--- NOTE | 2021-06-22 11:14 | PM.DS ---
DS: Providers Provider Date of Service: 06/22/21 Date of admission: 06/21/21 06:26 Primary care physician: Anthony Titus MD Consults: 06/21/21 07:27 Consult to General Surgery Routine Consulting Provider: Stu Fragoso Reason for consultation: hematoma Has provider been notified: No 06/22/21 08:59 Consult to Nephrology Routine Consulting Provider: Jc Alexander Reason for consultation: db on ckd Has provider been notified: No DS: Diagnosis Discharge Diagnosis (1) SARS-CoV-2 positive: Status: Acute (2) Hematoma: Status: Acute DS: Summary Hospital Course Hospital Course: 80-year-old female with past medical history of CHF with preserved ejection fraction, AFib, anemia, anxiety, aortic valve stenosis status post TAVR, asthma, CAD, CKD, COPD, diabetes,? hyperlipidemia among others who presents the hospital with complaints of bleeding from her laceration head.? Patient reports that about 3 weeks ago she had a mechanical fall and developed a lump in her head.? About 4 days ago she started bleeding profusely from this lump.? She tried to treated at home with pads and sleeping upright in a chair but she continued to have profuse bleeding therefore came into the hospital.? She is reporting that she is feeling dizzy, generalized weakness, but otherwise has no headache, change in vision, no chest pain and no shortness of breath.? She was diagnosed with COVID 19? about 2 weeks ago, but? only has a cough and feels no shortness of breath, denies any fever or chills, no abdominal pain nausea or vomiting, no diarrhea constipation, no urinary symptoms and no lower extremity edema.? On arrival to the ED patient found to be hemodynamically stable with no significant abnormal vitals Labs are significant for? initial hemoglobin of 8.5 that dropped to 7.2 despite receiving 1 unit of PRBC, on repeat CBC few hours later patient dropped even further from 7.2-7.3.? Patient is receiving a 2nd unit of PRBC and will be admitted for further management.? She has no other significant abnormal vitals except for lactic acid of 2.3 that resolved.? Slightly elevated a EULALIA a has a 2, positive COVID-19. ? Occult stool negative x2. ? Head CT revealed large central and right occipital hematoma with laceration and nondisplaced left occipital fracture.? Old healed fracture posterior C2 base. Hospital course: patient came with scalp hematoma, and occipital fracture -status post fall 3-4 weeks back - patient anemia required transfusion, received 2 PRBC. Hemoglobin is stable around 9, fecal occult blood negative x2. discussed with Cardiology and surgery- hold off anticoagulation for 5 days and repeat H&H before starting Eliquis. Patient was seen by surgery for scalp hematoma and occipital fracture-no acute intervention required except transfusion as above. Further management out patiently, patient may benefit from outpatient pcp follow-up out patiently upon discharge from rehab. Above management discussed with the patient in detail length she understand and in agreement with the above plan, time spent 50 minutes and 50% time spent on counseling. Significant findings: As above. Procedures performed: None. Treatment and response: As above. Complications: None. Time Spent with Patient Time attestation: Total time spent providing and/or coordinating discharge services: Discharge coordination time: Greater than 30 minutes Quality: Stroke Does the patient have a stroke diagnosis?: No Physical Exam Vital Signs: Vital Signs: Last Vital Signs Temp 98.2 F 06/21/21 21:22 Pulse 48 L 06/22/21 08:57 Resp 12 06/22/21 08:57 BP 128/51 L 06/22/21 08:57 Pulse Ox 95 06/22/21 08:57 BMI result Body Mass Index 30.2 Appearance: Alert.? Oriented .? not in distress. cvs: rrr, [id number] res: clear to auscultation ,no rhonchii or wheezing abd: no rebound or guarding ,nt, bs present. ext pulses present , no cyanosis skin:has a palpable small hematoma on the back of her head, small amount of dry blood.? No evidence of acute bleed present. neuro: axo3 , nonfocal. DS: Data Data Completed and Pending Completed studies during hospitalization [Text1]: Procedures Extirpation of Matter from Right Upper Leg Subcutaneous Tissue and Fascia, Open Approach (07/24/20) Insertion of Infusion Device into Superior Vena Cava, Percutaneous Approach (07/24/20) Transfusion of Nonautologous Red Blood Cells into Peripheral Vein, Percutaneous Approach (07/24/20) Ultrasonography of Superior Vena Cava, Guidance (07/24/20) Pending studies at discharge: Pending at discharge 06/20/21 15:03 Surgical [PTH] Stat Labs on day of discharge: Laboratory Results - last 24 hr 06/20/21 06/22/21 06/22/21 17:10 02:30 04:34 WBC 6.6 RBC 2.94 L Hgb 8.9 L Hct 28.6 L MCV 97.3 MCH 30.3 MCHC 31.1 RDW 14.6 Plt Count 90 L MPV 11.4 Absolute Nucleated RBC 0.000 Nucleated RBC % (auto) 0.0 Sodium Potassium Chloride Carbon Dioxide Anion Gap BUN Creatinine Estim Creat Clear Calc Estimated GFR Random Glucose Calcium Urine Color YELLOW Urine Appearance HAZY Urine pH 6.0 Ur Specific [place] 1.025 Urine Protein 1+ H Urine Glucose (UA) NEG Urine Ketones NEG Urine Blood 1+ H Urine Nitrite NEG Ur Leukocyte Esterase 1+ H Urine RBC 1-4 Urine WBC 15-29 H Ur Squamous Epith Cells 1+ Urine Bacteria 4+ Urine Mucus 1+ Blood Type A Positive Antibody Screen POSITIVE Antibody Identification Anti-c Crossmatch (AHG) See Detail 06/22/21 04:34 WBC RBC Hgb Hct MCV MCH MCHC RDW Plt Count MPV Absolute Nucleated RBC Nucleated RBC % (auto) Sodium 145 Potassium 4.8 Chloride 115 H Carbon Dioxide 24 Anion Gap 11 L BUN 39 H Creatinine 2.77 H Estim Creat Clear Calc 14.0 Estimated GFR 17 Random Glucose 139 H Calcium 8.9 Urine Color Urine Appearance Urine pH Ur Specific [place] Urine Protein Urine Glucose (UA) Urine Ketones Urine Blood Urine Nitrite Ur Leukocyte Esterase Urine RBC Urine WBC Ur Squamous Epith Cells Urine Bacteria Urine Mucus Blood Type Antibody Screen Antibody Identification Crossmatch (AHG) Preliminary micro results at discharge 06/20/21 13:51 Blood Culture - Preliminary Blood - Venous Staphylococcus aureus 06/20/21 11:28 Blood Culture - Preliminary Blood - Venous No growth after 24 hours. Additional Comments Additional comments: CT/CT head/brain wo con IMPRESSION: Large central and right occipital hematoma with laceration and nondisplaced left occipital fracture. ? Old healed fracture posterior C2 base. No acute fracture or dislocation seen at this time. ? Degenerative disc changes C6-C7 and C7-T1 disc levels with ventral and posterior spondylosis.? Discharge Plan Discharge Patient Disposition: [facility] Discharge Diagnosis: scalp hematoma, fall. Referrals: Anthony Titus MD [Primary Care Provider] - 2 days Discharge Medications: Continued ferrous sulfate 325 mg (65 mg iron) tablet 325 mg PO DAILY Qty: 90 RF: 1 sertraline 100 mg tablet 100 mg PO DAILY Qty: 90 RF: 1 nystatin 100,000 unit/gram powder 1 appl topical BID RF: 0 acetaminophen 650 mg Tablet 650 mg PO Q4H PRN (Reason: Headache) RF: 0 cholecalciferol (vitamin D3) 50 mcg (2,000 unit) Capsule 2,000 unit PO DAILY RF: 0 memantine [Namenda XR] 21 mg Capsule,Sprinkle,Er 24hr 21 mg PO DAILY RF: 0 albuterol sulfate [ProAir HFA] 90 mcg/actuation HFA aerosol inhaler 2 puff INHALATION Q6H PRN (Reason: Wheezing) RF: 0 rivastigmine tartrate 6 mg capsule 6 mg PO BID RF: 0 meclizine 12.5 mg tablet 25 mg PO NEEDED RF: 0 isosorbide mononitrate 60 mg tablet extended release 24 hr 1 tab PO DAILY RF: 0 nitroglycerin 0.4 mg tablet, sublingual 0.4 mg sublingual Q5M PRN (Reason: chest pain) 30 Days Qty: 30 RF: 5 amiodarone 200 mg tablet 200 mg PO DAILY 90 Days Qty: 90 RF: 3 omeprazole 20 mg capsule,delayed release(DR/EC) 20 mg PO DAILY Qty: 90 RF: 1 calcitriol 0.25 mcg capsule 0.25 mcg PO 3XW 90 Days Qty: 39 RF: 3 atorvastatin 20 mg tablet 20 mg PO DAILY Qty: 90 RF: 3 hydralazine 100 mg tablet 100 mg PO BID Qty: 180 RF: 1 pregabalin 50 mg capsule 50 mg PO TID 90 Days Qty: 270 RF: 0 amlodipine 5 mg tablet 10 mg PO DAILY 90 Days Qty: 180 RF: 3 Incruse Ellipta 62.5 mcg/actuation blister with device 1 inh inhalation BEDTIME RF: 0 Held Eliquis 2.5 mg tablet 2.5 mg PO BID Qty: 180 RF: 2 Hold Instructions: Resume on 06/27/21. Diet: advance to usual diet and low fat, low cholesterol Activity on Discharge: As tolerated Stand Alone Forms: Patient Portal Discharge page Activity Restrictions/Additional Instructions: Take your medications as prescribed. If you were prescribed antibiotics today, it is important that you take your medication to their entirety, do not skip any doses, do not finish them early. Today you tested positive for COVID-19. Take Ibuprofen or Tylenol as needed for fevers or body aches. Quarantine for 7 days and ensure you wear a mask. After 7 days you should wear a mask for 3 days after that. Practice social distancing and good hand hygiene. Drink plenty of fluids. Follow-up with your primary care provider this week. Return to the emergency department with new or worsening symptoms. In case of emergency call 911 You can purchase a pulse oximeter from your local pharmacy or grocery store, and monitor your oxygen saturation if it goes below 94% you should return to the emergency department for further evaluation. Please return in 5-7 days for suture removal. There are 3 sutures to be removed. Care Plan Goals: patient came with scalp hematoma, and occipital fracture -status post fall 3-4 weeks back - patient anemia required transfusion, received 2 PRBC. Hemoglobin is stable around 9, fecal occult blood negative x2. discussed with Cardiology and surgery- hold off anticoagulation for 5 days and repeat H&H before starting Eliquis. Patient was seen by surgery for scalp hematoma and occipital fracture-no acute intervention required except transfusion as above. Further management out patiently, patient may benefit from outpatient pcp follow-up out patiently upon discharge from rehab. Health Concerns: as above. Plan of Treatment: as above. Assessment: as above. Patient Instructions: Care For Your Stitches (ED), Laceration (ED)
[2021-06-22 13:38] LABS: Alanine Aminotransferase 52 U/L (0-31); Albumin Level 3.1 g/dL (3.5-5.0); Alkaline Phosphatase 64 U/L (39-117); Aspartate Amino Transferase 40 U/L (5-31); Bilirubin Direct < 0.2 mg/dL (0.0-0.5); Bilirubin Total 0.3 mg/dL (0.0-1.0); Total Protein 5.3 g/dL (6.5-8.0)
[2021-06-22] MEDS: Lactated Ringers 1,000 ML 50 ML IVCONT (15:18)
--- NOTE | 2021-06-22 16:36 | W.PM.IDCN ---
History of Present Illness Data of Consult Service Date: 06/22/21 Requesting physician: Amber Turk Primary Care Provider: Anthony Titus MD HPI Reason for consult: scalp lesion,staph bacteremia,?UTI,COVID She presents with weakness and dizziness after fall. She has scalp hematoma She has staph bacteremia COVID is present Urine has pyuria,chronic Review of Systems Review of Systems: Yes all other systems are reviewed and are negative [facility] Past Medical History Medical History (Updated 06/22/21 @ 16:39 by Petra Oakes MD) (HFpEF) heart failure with preserved ejection fraction Acute blood loss anemia Afib Anemia Anxiety Aortic valve stenosis Asthma Bacteremia Bacteremia Bacteremia Basal cell carcinoma Benign essential hypertension Cellulitis Chronic kidney disease, stage 4 (severe) COPD (chronic obstructive pulmonary disease) Diabetic polyneuropathy Fracture Gallstones Hospital discharge follow-up Hypernatremia Melanoma Mild cognitive impairment with memory loss Nocturnal hypoxemia Obesity (BMI 30-39.9) Paroxysmal atrial fibrillation Pure hypercholesterolemia Pyuria Thrombocytopenia Type 2 diabetes mellitus with diabetic chronic kidney disease Family History Family History Father Medical history unknown Mother Acute myeloid leukemia Cancer Maternal Grandmother Myocardial infarction Brother Myocardial infarction Sister Brain aneurysm Family history: reviewed and not pertinent Surgical History Surgical History History of cardiac catheterization History of colonoscopy History of eye surgery 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) Stented coronary artery Social History Social History Household Members: Spouse and Family Housing: House Are you a primary youth career specialist to a significant other at home: No Do you presently have visiting nurse or other home services: Yes Alcohol intake: never Patient Tobacco Use Status: Former Tobacco user Years Smoked: 19 e-Cigarette/Vaping Use: Never Used Second Hand Smoke Exposure: Yes Advance Directives: Yes Advance Directives on File: Yes Advance Directives Date on File: 07/24/20 service: No Current occupational status: retired Cognitive needs: No Hearing needs: No Vision needs: No Meds Allergies Allergy/AdvReac Type Severity Reaction Status Date / Time Penicillins [PENICILLINS] Allergy Severe HIVES/SWELL Verified 06/16/21 12:02 ING Active Medications: Current Medications Acetaminophen (Acetaminophen 325 Mg Tablet) 650 mg PO Q6H PRN PRN Reason: Pain, Mild (Pain Scale 1-3) Last Admin: 06/22/21 06:32 Dose: 650 mg Documented by: Albuterol Sulfate (Albuterol Sulfate 90 Mcg 8 Gm Inhaler) 2 puff INHALE Q6H PRN PRN Reason: Wheezing Amiodarone HCl (Amiodarone Hcl 200 Mg Tablet) 200 mg PO DAILY [facility] Last Admin: 06/22/21 08:52 Dose: 200 mg Documented by: Amlodipine Besylate (Amlodipine Besylate 10 Mg Tablet) 10 mg PO DAILY [facility]; Protocol Last Admin: 06/22/21 08:52 Dose: 10 mg Documented by: Atorvastatin Calcium (Atorvastatin Calcium 20 Mg Tablet) 20 mg PO DAILY [facility] Last Admin: 06/22/21 08:52 Dose: 20 mg Documented by: Calcitriol (Calcitriol 0.25 Mcg Capsule) 0.25 mcg PO Q2D [facility] Last Admin: 06/21/21 10:45 Dose: 0.25 mcg Documented by: Docusate Sodium (Docusate Sodium 100 Mg Capsule) 100 mg PO DAILY PRN PRN Reason: Constipation Ferrous Sulfate (Ferrous Sulfate 324 Mg Tablet.Dr) 324 mg PO DAILY [facility] Last Admin: 06/22/21 08:52 Dose: 324 mg Documented by: Hydralazine HCl (Hydralazine Hcl 50 Mg Tablet) 100 mg PO BID [facility]; Protocol Last Admin: 06/22/21 08:52 Dose: 100 mg Documented by: Lactated Ringer's (Lr) 1,000 mls @ 50 mls/hr IVCONT .Q20H [facility] Last Admin: 06/22/21 15:18 Dose: 50 mls/hr Documented by: Isosorbide Mononitrate (Isosorbide Mononitrate 60 Mg Tab.Er.24h) 60 mg PO DAILY [facility]; Protocol Last Admin: 06/22/21 08:52 Dose: 60 mg Documented by: Meclizine HCl (Meclizine Hcl 25 Mg Tablet) 25 mg PO DAILY PRN PRN Reason: Vertigo Nitroglycerin (Nitroglycerin 0.4 Mg Tab.Subl) 0.4 mg SUBLINGUAL Q5M PRN PRN Reason: chest pain Non-Formulary Medication (Memantine [Namenda Xr]) 21 mg PO DAILY [facility] Nystatin (Nystatin Powder 15 Gm Bottle) 1 appl TOPICAL BID [facility]; Protocol Last Admin: 06/22/21 09:02 Dose: Not Given Documented by: Omeprazole (Omeprazole 20 Mg Capsule.) 20 mg PO DAILY@0630 [facility] Last Admin: 06/22/21 06:32 Dose: 20 mg Documented by: Ondansetron HCl (Ondansetron Hcl 4 Mg/2 Ml Vial) 4 mg IVPUSH Q8H PRN PRN Reason: Nausea and Vomiting Pregabalin (Pregabalin 50 Mg Capsule) 50 mg PO TID [facility] Last Admin: 06/22/21 15:18 Dose: 50 mg Documented by: Rivastigmine Tartrate (Rivastigmine Tartrate 6 Mg Capsule) 6 mg PO BID [facility] Last Admin: 06/22/21 08:52 Dose: 6 mg Documented by: Sertraline HCl (Sertraline Hcl 100 Mg Tablet) 100 mg PO DAILY [facility] Last Admin: 06/22/21 08:52 Dose: 100 mg Documented by: Sodium Chloride (0.9 % Sodium Chloride Flush 3 Ml Syringe) 3 ml IVFLUSH QSHIFT [facility] Last Admin: 06/22/21 16:11 Dose: Not Given Documented by: Tiotropium [place] (Tiotropium [place] 18 Mcg Cap.W.Dev) 1 puff INHALE RDAILY [facility] Last Admin: 06/22/21 11:50 Dose: Not Given Documented by: Vitamin D (Cholecalciferol (Vitamin D3) 25 Mcg Tablet) 50 mcg PO DAILY [facility] Last Admin: 06/22/21 08:52 Dose: 50 mcg Documented by: Home Medications Medication Instructions Recorded Confirmed Last Taken Type acetaminophen 650 mg tablet 650 mg PO Q4H PRN 03/05/20 06/21/21 Unknown History cholecalciferol (vitamin D3) 50 2,000 unit PO DAILY 03/05/20 06/21/21 03/04/20 History mcg (2,000 unit) capsule memantine 21 mg capsule 21 mg PO DAILY 03/05/20 06/21/21 03/04/20 History sprinkle,extended release 24hr (Namenda XR) albuterol sulfate 90 mcg/actuation 2 puff INHALATION Q6H PRN g 04/06/20 06/21/21 Unknown History aerosol inhaler (ProAir HFA) meclizine 12.5 mg tablet 25 mg PO NEEDED 05/19/20 06/21/21 Unknown History umeclidinium 62.5 mcg/actuation 1 inh INHALATION BEDTIME 06/10/20 06/21/21 Unknown History blister powder for inhalation (Incruse Ellipta) nystatin 100,000 unit/gram topical 1 appl TOPICAL BID 05/08/21 06/21/21 Unknown History powder rivastigmine tartrate 6 mg capsule 6 mg PO BID 05/12/21 06/21/21 Unknown History isosorbide mononitrate 60 mg 1 tab PO DAILY 06/21/21 06/21/21 Unknown History tablet,extended release 24 hr Physical Exam Vital Signs: Vital Signs: Last Vital Signs Temp 98.2 F 06/21/21 21:22 Pulse 48 L 06/22/21 08:57 Resp 12 06/22/21 08:57 BP 128/51 L 06/22/21 08:57 Pulse Ox 95 06/22/21 08:57 BMI result Body Mass Index 30.2 Const: General: cooperative Eyes: General: appearance normal, both eyes and all related structures Resp: Effort & Inspection: normal respiratory effort Cardio: Rate: regular rate Rhythm: regular rhythm GI: Palpation (GI): nontender Extrem: General: Yes normal to inspection Results Labs CBC & Chem 7: 06/22/21 04:34 06/22/21 04:34 Labs: Short CBC 06/22/21 Range/Units 04:34 WBC 6.6 (4.8-10.8) X10*3/uL Hgb 8.9 L (12.0-16.0) g/dl Hct 28.6 L (37.0-47.0) % Plt Count 90 L (160-400) X10*3/uL BMP 06/22/21 04:34 Sodium 145 Potassium 4.8 Chloride 115 H Carbon Dioxide 24 BUN 39 H Creatinine 2.77 H Calcium 8.9 Liver Function 06/22/21 Range/Units 04:34 Total Bilirubin 0.3 (0.0-1.0) mg/dL Direct Bilirubin < 0.2 (0.0-0.5) mg/dL AST 40 H (5-31) U/L ALT 52 H (0-31) U/L Alkaline Phosphatase 64 (39-117) U/L Albumin 3.1 L (3.5-5.0) g/dL Urine 06/22/21 Range/Units 02:30 Urine Color YELLOW Urine Appearance HAZY Urine pH 6.0 (5.0-8.0) Ur Specific [place] 1.025 (1.005-1.025) Urine Protein 1+ H (NEG-TRACE) MG/DL Urine Glucose (UA) NEG (NEG) MG/DL Microbiology Microbiology Results: Microbiology 06/20/21 11:28 Blood - Venous Blood Culture - Preliminary No growth after 48 hours. 06/20/21 13:51 Blood - Venous Blood Culture - Preliminary Staphylococcus aureus Assessment and Plan (1) Hematoma: Status: Acute area clear,may be staph source (2) SARS-CoV-2 positive: Status: Acute not hypoxic, and would nt use Remdesivir prophylaxis high creatinine (3) Bacteremia: Status: Acute Vancomycin echo (4) Pyuria: Status: Acute no treatment at this time,chronic
[2021-06-22 17:01] VITALS: BP 151/62; PULSE 61; RESP 18; TEMP 37.1; O2SAT 96
--- NOTE | 2021-06-22 17:02 | P.PNIM_ITS ---
Subjective Subjective Date of Service: 06/22/21 Interval History: scalp hematoma, staph bacteremia Review of Systems Denies any new complaint of chest pain or shortness of breath or abdominal pain or fever or chills or nausea or vomiting Denies any cough Denies any weakness or numbness. Physical Exam Vital Signs: Vital Signs: Last Vital Signs Temp 98.2 F 06/21/21 21:22 Pulse 48 L 06/22/21 08:57 Resp 12 06/22/21 08:57 BP 128/51 L 06/22/21 08:57 Pulse Ox 95 06/22/21 08:57 BMI result Body Mass Index 30.2 Appearance: Alert.? Oriented .? not in distress. cvs: rrr, [id number] res: clear to auscultation ,no rhonchii or wheezing abd: no rebound or guarding ,nt, bs present. ext pulses present , no cyanosis skin:has a palpable small hematoma on the back of her head, small amount of dry blood.? No evidence of acute bleed present. neuro: axo3 , nonfocal. Objective Data Active Medications Acetaminophen (Acetaminophen 325 Mg Tablet) 650 mg PO Q6H PRN PRN Reason: Pain, Mild (Pain Scale 1-3) Last Admin: 06/22/21 06:32 Dose: 650 mg Documented by: GIOVANNI Albuterol Sulfate (Albuterol Sulfate 90 Mcg 8 Gm Inhaler) 2 puff INHALE Q6H PRN PRN Reason: Wheezing Amiodarone HCl (Amiodarone Hcl 200 Mg Tablet) 200 mg PO DAILY [facility] Last Admin: 06/22/21 08:52 Dose: 200 mg Documented by: AURA-RAMAGAPITO Amlodipine Besylate (Amlodipine Besylate 10 Mg Tablet) 10 mg PO DAILY [facility]; Protocol Last Admin: 06/22/21 08:52 Dose: 10 mg Documented by: AURA-TL Atorvastatin Calcium (Atorvastatin Calcium 20 Mg Tablet) 20 mg PO DAILY [facility] Last Admin: 06/22/21 08:52 Dose: 20 mg Documented by: AURA-TL Calcitriol (Calcitriol 0.25 Mcg Capsule) 0.25 mcg PO Q2D [facility] Last Admin: 06/21/21 10:45 Dose: 0.25 mcg Documented by: COOPEB Docusate Sodium (Docusate Sodium 100 Mg Capsule) 100 mg PO DAILY PRN PRN Reason: Constipation Ferrous Sulfate (Ferrous Sulfate 324 Mg Tablet.) 324 mg PO DAILY [facility] Last Admin: 06/22/21 08:52 Dose: 324 mg Documented by: SANTOSH Hydralazine HCl (Hydralazine Hcl 50 Mg Tablet) 100 mg PO BID [facility]; Protocol Last Admin: 06/22/21 08:52 Dose: 100 mg Documented by: SANTOSH Lactated Ringer's (Lr) 1,000 mls @ 50 mls/hr IVCONT .Q20H [facility] Last Admin: 06/22/21 15:18 Dose: 50 mls/hr Documented by: SANTOSH Isosorbide Mononitrate (Isosorbide Mononitrate 60 Mg Tab.Er.24h) 60 mg PO DAILY [facility]; Protocol Last Admin: 06/22/21 08:52 Dose: 60 mg Documented by: SANTOSH Meclizine HCl (Meclizine Hcl 25 Mg Tablet) 25 mg PO DAILY PRN PRN Reason: Vertigo Nitroglycerin (Nitroglycerin 0.4 Mg Tab.Subl) 0.4 mg SUBLINGUAL Q5M PRN PRN Reason: chest pain Non-Formulary Medication (Memantine [Namenda Xr]) 21 mg PO DAILY [facility] Nystatin (Nystatin Powder 15 Gm Bottle) 1 appl TOPICAL BID [facility]; Protocol Last Admin: 06/22/21 09:02 Dose: Not Given Documented by: SANTOSH Non-Admin Reason: Med Not Available Omeprazole (Omeprazole 20 Mg Capsule.) 20 mg PO DAILY@0630 [facility] Last Admin: 06/22/21 06:32 Dose: 20 mg Documented by: GIOVANNI Ondansetron HCl (Ondansetron Hcl 4 Mg/2 Ml Vial) 4 mg IVPUSH Q8H PRN PRN Reason: Nausea and Vomiting Pregabalin (Pregabalin 50 Mg Capsule) 50 mg PO TID [facility] Last Admin: 06/22/21 15:18 Dose: 50 mg Documented by: SANTOSH Rivastigmine Tartrate (Rivastigmine Tartrate 6 Mg Capsule) 6 mg PO BID [facility] Last Admin: 06/22/21 08:52 Dose: 6 mg Documented by: SANTOSH Sertraline HCl (Sertraline Hcl 100 Mg Tablet) 100 mg PO DAILY [facility] Last Admin: 06/22/21 08:52 Dose: 100 mg Documented by: SANTOSH Sodium Chloride (0.9 % Sodium Chloride Flush 3 Ml Syringe) 3 ml IVFLUSH QSHIFT [facility] Last Admin: 06/22/21 16:11 Dose: Not Given Documented by: SANTOSH Non-Admin Reason: IV Running Tiotropium [place] (Tiotropium [place] 18 Mcg Cap.W.Dev) 1 puff INHALE RDAILY [facility] Last Admin: 06/22/21 11:50 Dose: Not Given Documented by: KILO Non-Admin Reason: Med Not Available Vitamin D (Cholecalciferol (Vitamin D3) 25 Mcg Tablet) 50 mcg PO DAILY [facility] Last Admin: 06/22/21 08:52 Dose: 50 mcg Documented by: SANTOSH Labs CBC & Chem 7: 06/22/21 04:34 06/22/21 04:34 Labs: Laboratory Results - last 24 hr 06/20/21 06/22/21 06/22/21 17:10 02:30 04:34 MCV 97.3 MCH 30.3 MCHC 31.1 RDW 14.6 Plt Count 90 L MPV 11.4 Absolute Nucleated RBC 0.000 Nucleated RBC % (auto) 0.0 Anion Gap Estim Creat Clear Calc Estimated GFR Random Glucose Calcium Total Bilirubin Direct Bilirubin AST ALT Alkaline Phosphatase Total Protein Albumin Urine Color YELLOW Urine Appearance HAZY Urine pH 6.0 Ur Specific [place] 1.025 Urine Protein 1+ H Urine Glucose (UA) NEG Urine Ketones NEG Urine Blood 1+ H Urine Nitrite NEG Ur Leukocyte Esterase 1+ H Urine RBC 1-4 Urine WBC 15-29 H Ur Squamous Epith Cells 1+ Urine Bacteria 4+ Urine Mucus 1+ Crossmatch (AHG) See Detail 06/22/21 04:34 MCV MCH MCHC RDW Plt Count MPV Absolute Nucleated RBC Nucleated RBC % (auto) Anion Gap 11 L Estim Creat Clear Calc 14.0 Estimated GFR 17 Random Glucose 139 H Calcium 8.9 Total Bilirubin 0.3 Direct Bilirubin < 0.2 AST 40 H ALT 52 H Alkaline Phosphatase 64 Total Protein 5.3 L Albumin 3.1 L Urine Color Urine Appearance Urine pH Ur Specific [place] Urine Protein Urine Glucose (UA) Urine Ketones Urine Blood Urine Nitrite Ur Leukocyte Esterase Urine RBC Urine WBC Ur Squamous Epith Cells Urine Bacteria Urine Mucus Crossmatch (AHG) Microbiology Microbiology Results: Microbiology 06/20/21 11:28 Blood Culture - Preliminary Blood - Venous No growth after 48 hours. 06/20/21 13:51 Blood Culture - Preliminary Blood - Venous Staphylococcus aureus Assessment and Plan (1) SARS-CoV-2 positive: Status: Acute (2) Hematoma: Status: Acute (3) Laceration of skin of scalp: Status: Acute (4) Staph aureus infection: Status: Acute Assessment and Plan: 80-year-old female with past medical history significant for AFib on Eliquis, CHF who presents to the hospital with bleeding from a laceration her head found to have a large hematoma. 1.? Acute blood loss anemia -? secondary to hematoma s/p 2 units of PRBC-h/h 9 -? stool occult blood negative hold eliquis for now 2. hematoma of the head -? patient had a mechanical fall about 3 weeks ago, now has CT showing large central and right occipital hematoma with laceration and nondisplaced left occipital fracture consult General surgery-Recommend observation of the hematoma off anticoagulation -? monitor CBC- h/h stable around 8.9 3.? COVID positive - not? hypoxic, -? positive 2 weeks ago but continues to have cough -? will monitor respiratory status 4.? ? CHF -? not in exacerbation and not on a diuretic -? continue home meds 5? AFib -? continue amiodarone, hold apixaban given the bleeding 6 asymptomatic bacteriuria/pyuria: Will stop ceftriaxone. 7. Possible staph bacteremia: 1/2 culture spositive added vanco moniter vanco trough , renal function and elevtrolytes. Quality Stroke Does the patient have a stroke diagnosis?: No VTE Prior VTE?: No VTE Risk Level:: Medical - moderate - high VTE Device Contraindication: N/A - Device Ordered VTE Drug Contraindication: N/A - Med Ordered
--- NOTE | 2021-06-22 17:21 | PHA.PROG ---
Admission Date/Time: June 21, 2021 06:26 Indication: bacteremia Weight in k.039 kg Adjusted body weight in K.1 kg [place] body weight in K.2 kg Obesity Dosing Indication % IBW: Serum Creatinine - Last 168 Hours 06/20/21 06/21/21 06/22/21 11:28 10:01 04:34 Creatinine 3.35 H 2.79 H 2.77 H Estimated CrCl and GFR - Last 168 Hours 06/20/21 06/21/21 06/22/21 11:28 10:01 04:34 Estim Creat Clear Calc 11.6 13.9 14.0 Estimated GFR 13 16 17 Vancomycin Loading Dose: 1500 mg x 1 Current Vancomycin Dosing Regimen: 500 mg q24h Vancomycin Monitoring using AUC goal of 400 - 600 range with trough as surrogate marker: predicted AUC 492 Date and Time for next Vancomycin Level to be drawn: 06/24/21 @1600 Pharmacist Comments on Vancomycin Plan: Vanco LD of 1500 mg...next trough before 3rd dose. Vancomycin dosing will take advantage of ividence as a clinical decision support tool that uses Bayesian modeling to calculate individual patient's pharmacokinetic parameters and forecast the patient's drug concentration time course with the target goal AUC 24 range of 400 - 600 mg/L/hr.
[2021-06-22] MEDS: vancomycin HCL 1,500 MG in 0.9 % Sodium Chloride 500 ML 333.33 MG IV (17:43)
[2021-06-22] MEDS: Nystatin Powder 15 GM BOTTLE 1 APPL TOPICAL (21:02)
[2021-06-23] MEDS: Acetaminophen 325 MG TABLET 650 MG PO ×2 (04:05→21:54)
[2021-06-23] MEDS: Lactated Ringers 1,000 ML 50 ML IVCONT ×2 (04:06→16:14)
[2021-06-23] MEDS: Omeprazole 20 MG CAPSULE.DR PO (06:39)
[2021-06-23 06:45] VITALS: BP 150/60; PULSE 66; RESP 16; O2SAT 98
[2021-06-23 07:49] LABS: Anion Gap 11 (12-20); Blood Urea Nitrogen 33 mg/dL (9-16); Calcium 8.4 mg/dL (8.4-10.2); Carbon Dioxide 25 mmol/L (22-29); Chloride 113 mmol/L (96-108); Creatinine Clr Calc Pharmacy 15.3; Estimated Glomerular Filt Rate 18; Glucose Random 99 mg/dL (60-115); Potassium 4.6 mmol/L (3.3-5.1); Sodium 144 mmol/L (135-145)
[2021-06-23 09:03] VITALS: PULSE 73; RESP 20; O2SAT 96
[2021-06-23 10:09] LABS: Hematocrit 29.7 % (37.0-47.0); Hemoglobin 9.1 g/dl (12.0-16.0)
--- NOTE | 2021-06-23 10:19 | PM.PNNEP ---
Subjective Subjective Date of Service: 06/23/21 Principal diagnosis: LINDA Interval history: seen and examined, events noted Physical Exam Vital Signs: Vital Signs: Last Vital Signs Temp 98.7 F 06/22/21 17:01 Pulse 73 06/23/21 09:03 Resp 20 06/23/21 09:03 BP 150/60 H 06/23/21 06:45 Pulse Ox 98 06/23/21 06:45 BMI result Body Mass Index 30.2 Const: General: cooperative, no acute distress and well developed Nutritional Appearance: well nourished Orientation/consciousness: patient oriented x3 Limitations: no limitations HENMT: Other: palpable hematoma and scalp wound with no active bleeding noted, minimal tenderness Eyes: General: appearance normal, both eyes and all related structures Pupils: Equal, round and reactive pupils present Resp: Effort & Inspection: normal respiratory effort Auscultation: clear to auscultation bilaterally Cardio: Rate: regular rate Rhythm: regular rhythm GI: Palpation (GI): Soft to palpation and nontender Auscultation: normal bowel sounds Skin: General skin exam: no rashes or lesions noted Neuro: General: patient oriented x3 Cranial nerves: Yes Equal, round and reactive pupils present Cognition (Neuro): normal cognition Extrem: General: Yes normal to inspection, Yes no clubbing, cyanosis or edema and Yes no pedal edema Objective Data Labs CBC & Chem 7: 06/23/21 09:58 06/23/21 06:45 Labs: Laboratory Results - last 24 hr 06/22/21 06/23/21 06/23/21 04:34 06:45 09:58 Hgb 9.1 L Hct 29.7 L Sodium 144 Potassium 4.6 Chloride 113 H Carbon Dioxide 25 Anion Gap 11 L BUN 33 H Creatinine 2.54 H Estim Creat Clear Calc 15.3 Estimated GFR 18 Random Glucose 99 Calcium 8.4 Total Bilirubin 0.3 Direct Bilirubin < 0.2 AST 40 H ALT 52 H Alkaline Phosphatase 64 Total Protein 5.3 L Albumin 3.1 L Microbiology Microbiology Results: Microbiology 06/20/21 13:51 Blood - Venous Blood Culture - Final Methicillin Res Staph Aureus 06/20/21 11:28 Blood - Venous Blood Culture - Preliminary No growth after 48 hours. Procedures Date of Service Date of Service: 06/23/21 Assessment & Plan Assessment and plan (1) SARS-CoV-2 positive: Status: Acute (2) Hematoma: Status: Acute Assessment and Plan: 80-year-old female with past medical history significant for AFib on Eliquis, CHF, CKD 3 ( BSL SCr 1.5-1.8) who presents to the hospital with bleeding from a laceration her head found to have a large hematoma and LINDA on CKD and Staph bacteremia 1. LINDA: multifact ATN vs pre-renal; Sr cont to grad decr is encouraging sign; doubt AGN/AIN or OBs 2. CKD 3: BSL SCr 1.5-1.8 3. Vol status:looks good given h/o CHF 4. Staph bact MRSA and now on vanco; ques source 5. A.C: ques timing of r/s 6. Anemia: track and check Fe studies 7. Covid +: no evid of pulm covid at this time REC: cont to track renal func UOP, check with ID duration of ABX and whwether card echo neeeded; avoid Ntoxins; track vanco level and see if alt availbe given risk of vanco ATN; check Fe studies and track Hb will follow with team Time Spent With Patient Time: Total time spent is greater than 50% in coordination of care (as documented) at patient's floor/unit and/or counseling patient: Progress Note: Quality Stroke Does the patient have a stroke diagnosis?: No
[2021-06-23 10:23] VITALS: BP 145/58; PULSE 62; RESP 14; TEMP 37.1; O2SAT 96
[2021-06-23 10:23] LABS: INTERNATIONAL NORM RATIO 1.1 (0.9-1.1); Prothrombin Time 12.3 SEC (9.9-13.0)
[2021-06-23] MEDS: Isosorbide Mononitrate 60 MG TAB.ER.24H PO (10:34)
[2021-06-23] MEDS: amLODIPine Besylate 10 MG TABLET PO (10:34)
[2021-06-23] MEDS: Pregabalin 50 MG CAPSULE PO ×3 (10:35→21:56)
[2021-06-23] MEDS: Amiodarone HCL 200 MG TABLET PO (10:35)
[2021-06-23] MEDS: Ferrous Sulfate 324 MG TABLET.DR PO (10:35)
[2021-06-23] MEDS: Sertraline HCL 100 MG TABLET PO (10:35)
[2021-06-23] MEDS: Cholecalciferol (Vitamin D3) 25 MCG TABLET 50 MCG PO (10:35)
[2021-06-23] MEDS: Atorvastatin Calcium 20 MG TABLET PO (10:35)
[2021-06-23] MEDS: hydrALAZINE HCl 50 MG TABLET 100 MG PO ×2 (10:35→21:55)
[2021-06-23] MEDS: calcitrioL 0.25 MCG CAPSULE PO (10:38)
--- NOTE | 2021-06-23 14:02 | MHC.CM.PN ---
[facility] REVIEWED, PER HOSPITALIST AWAITING SECOND SET OF BC'S TO RETURN AND ECHO, CM CONTACTED PT'S SON SHANNON HAGAN [phone] TO DISCUSS D/C PLAN AND LIKELY NEED OF IV ABX AT HOME, SHANNON REPORTED THAT PT DID GO HOME W/IV ABX LAST YEAR AND THEY WOULD PREFER PT BE AT HOME IF SHE DOES NOT NEED STR, SHANNON REPORTS HE CAN ASSIST PT W/IV ABX ONCE HOME, PER RECORDS PT WENT TO [facility] ON IV ABX LAST YEAR HOWEVER SHANNON REPORTS THEY DID A FEW WKS OF HER IV ABX AT HOME WHEN D/C'D, SHANNON HAD NO PREFERENCE FOR [facility] COMPANIES. REFERRALS TO BE PLACED.
[2021-06-23 14:08] VITALS: PULSE 69; RESP 15; O2SAT 96
--- NOTE | 2021-06-23 16:09 | HO.PM.IMPN ---
Subjective Subjective Date of Service: 06/24/21 Interval History: scalp hematoma, MRSA bacteremia Review of Systems denies any chest pain or shortness of breath or abdominal pain or fever chills or cough or phlegm. Physical Exam Vital Signs: Vital Signs: Last Vital Signs Temp 98.8 F 06/23/21 10:23 Pulse 69 06/23/21 14:08 Resp 15 06/23/21 14:08 BP 145/58 H 06/23/21 10:23 Pulse Ox 96 06/23/21 14:08 BMI result Body Mass Index 30.2 Appearance: Alert.? Oriented .? not in distress. cvs: rrr, [id number] res: clear to auscultation ,no rhonchii or wheezing abd: no rebound or guarding ,nt, bs present. ext pulses present , no cyanosis skin:has a palpable small hematoma on the back of her head, small amount of dry blood.? No evidence of acute bleed present. neuro: axo3 , nonfocal. Objective Data Active Medications Acetaminophen (Acetaminophen 325 Mg Tablet) 650 mg PO Q6H PRN PRN Reason: Pain, Mild (Pain Scale 1-3) Last Admin: 06/23/21 04:05 Dose: 650 mg Documented by: JACQUELINE Albuterol Sulfate (Albuterol Sulfate 90 Mcg 8 Gm Inhaler) 2 puff INHALE Q6H PRN PRN Reason: Wheezing Amiodarone HCl (Amiodarone Hcl 200 Mg Tablet) 200 mg PO DAILY [facility] Last Admin: 06/23/21 10:35 Dose: 200 mg Documented by: WINSOME Amlodipine Besylate (Amlodipine Besylate 10 Mg Tablet) 10 mg PO DAILY [facility]; Protocol Last Admin: 06/23/21 10:34 Dose: 10 mg Documented by: WINSOME Atorvastatin Calcium (Atorvastatin Calcium 20 Mg Tablet) 20 mg PO DAILY [facility] Last Admin: 06/23/21 10:35 Dose: 20 mg Documented by: WINSOME Calcitriol (Calcitriol 0.25 Mcg Capsule) 0.25 mcg PO Q2D [facility] Last Admin: 06/23/21 10:38 Dose: 0.25 mcg Documented by: WINSOME Docusate Sodium (Docusate Sodium 100 Mg Capsule) 100 mg PO DAILY PRN PRN Reason: Constipation Ferrous Sulfate (Ferrous Sulfate 324 Mg Tablet.) 324 mg PO DAILY [facility] Last Admin: 06/23/21 10:35 Dose: 324 mg Documented by: WINSOME Hydralazine HCl (Hydralazine Hcl 50 Mg Tablet) 100 mg PO BID [facility]; Protocol Last Admin: 06/23/21 10:35 Dose: 100 mg Documented by: WINSOME Lactated Ringer's (Lr) 1,000 mls @ 80 mls/hr IVCONT .[id number] [facility] Last Admin: 06/23/21 04:06 Dose: 50 mls/hr Documented by: JACQUELINE Vancomycin HCl 500 mg/ Sodium (Chloride) 110 mls @ 110 mls/hr IV Q24H [facility] Isosorbide Mononitrate (Isosorbide Mononitrate 60 Mg Tab.Er.24h) 60 mg PO DAILY [facility]; Protocol Last Admin: 06/23/21 10:34 Dose: 60 mg Documented by: WINSOME Meclizine HCl (Meclizine Hcl 25 Mg Tablet) 25 mg PO DAILY PRN PRN Reason: Vertigo Nitroglycerin (Nitroglycerin 0.4 Mg Tab.Subl) 0.4 mg SUBLINGUAL Q5M PRN PRN Reason: chest pain Patient Own Med( Memantine [Namenda Xr] 21 Mg Capsule) 1 each PO DAILY [facility] Last Admin: 06/23/21 10:53 Dose: 1 each Documented by: WINSOME Nystatin (Nystatin Powder 15 Gm Bottle) 1 appl TOPICAL BID [facility]; Protocol Last Admin: 06/23/21 10:51 Dose: Not Given Documented by: WINSOME Non-Admin Reason: Med Not Available Omeprazole (Omeprazole 20 Mg Capsule.) 20 mg PO DAILY@0630 [facility] Last Admin: 06/23/21 06:39 Dose: 20 mg Documented by: JACQUELINE Ondansetron HCl (Ondansetron Hcl 4 Mg/2 Ml Vial) 4 mg IVPUSH Q8H PRN PRN Reason: Nausea and Vomiting Pharmacy Consult (Consult Rx Vancomycin Dosing) 1 each MISCELLANE DAILY PRN PRN Reason: Consult order Pregabalin (Pregabalin 50 Mg Capsule) 50 mg PO TID [facility] Last Admin: 06/23/21 10:35 Dose: 50 mg Documented by: WINSOME Rivastigmine Tartrate (Rivastigmine Tartrate 6 Mg Capsule) 6 mg PO BID [facility] Last Admin: 06/23/21 10:35 Dose: 6 mg Documented by: WINSOME Sertraline HCl (Sertraline Hcl 100 Mg Tablet) 100 mg PO DAILY [facility] Last Admin: 06/23/21 10:35 Dose: 100 mg Documented by: WINSOME Sodium Chloride (0.9 % Sodium Chloride Flush 3 Ml Syringe) 3 ml IVFLUSH QSHIFT [facility] Last Admin: 06/23/21 10:36 Dose: Not Given Documented by: WINSOME Non-Admin Reason: IV Running Tiotropium [place] (Tiotropium [place] 18 Mcg Cap.W.Dev) 1 puff INHALE RDAILY [facility] Last Admin: 06/23/21 09:01 Dose: 1 puff Documented by: KILO Vitamin D (Cholecalciferol (Vitamin D3) 25 Mcg Tablet) 50 mcg PO DAILY [facility] Last Admin: 06/23/21 10:35 Dose: 50 mcg Documented by: WINSOME Labs CBC & Chem 7: 06/23/21 09:58 06/24/21 06:21 Labs: Laboratory Results - last 24 hr 06/23/21 06/23/21 06:45 10:04 PT 12.3 INR 1.1 Anion Gap 11 L Estim Creat Clear Calc 15.3 Estimated GFR 18 Random Glucose 99 Calcium 8.4 Microbiology Microbiology Results: Microbiology 06/22/21 Unknown Urine Culture - Preliminary Urine clean catch - Urine lutz top Gram negative carmine 06/20/21 13:51 Blood Culture - Final Blood - Venous Methicillin Res Staph Aureus 06/20/21 11:28 Blood Culture - Preliminary Blood - Venous No growth after 48 hours. Assessment and Plan (1) Staph aureus infection: Status: Acute (2) Hematoma: Status: Acute Assessment and Plan: 80-year-old female with past medical history significant for AFib on Eliquis, CHF who presents to the hospital with bleeding from a laceration her head found to have a large hematoma. 1.? Acute blood loss anemia -? secondary to hematoma s/p 2 units of PRBC-h/h 9 -? stool occult blood negative hold eliquis for now 2. hematoma of the head -? patient had a mechanical fall about 3 weeks ago, now has CT showing large central and right occipital hematoma with laceration and nondisplaced left occipital fracture consult General surgery-Recommend observation of the hematoma off anticoagulation -? monitor CBC- h/h stable around 8.9 3.? COVID positive - not? hypoxic, -? positive 2 weeks ago but continues to have cough -? will monitor respiratory status 4.? ? CHF -? not in exacerbation and not on a diuretic -? continue home meds 5? AFib -? continue amiodarone, hold apixaban given the bleeding 6 asymptomatic bacteriuria/pyuria:? Will stop ceftriaxone.? 7. mrsa bacteremia: 06/07 culture spositive added vancomoniter vanco trough , renal function and elevtrolytes. Added repeat blood culture, echo. 8. 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
[2021-06-23] MEDS: 0.9 % Sodium Chloride Flush 3 ML SYRINGE IVFLUSH (16:14)
[2021-06-23] MEDS: vancomycin HCL 500 MG in 0.9 % Sodium Chloride 100 ML 110 MG IV (18:15)
[2021-06-23 19:23] VITALS: BP 117/53; PULSE 58; RESP 16; TEMP 37; O2SAT 96
--- NOTE | 2021-06-23 20:51 | PC.NURSE ---
pt caox4 sitting upright in bed, pt has nonlabored resps, sat is 96% on ra pt is in afib @ 60 in lead 2 pt offers no complaint.
[2021-06-24] VITALS (8 sets, daily range): BP systolic 128–180; BP diastolic 63–75; PULSE 58–70; RESP 16–22; TEMP 36.4–37.1; O2SAT 92–97; BMI 31.6
[2021-06-24] MEDS: Omeprazole 20 MG CAPSULE.DR PO (06:05)
[2021-06-24 07:32] LABS: Anion Gap 11 (12-20); Blood Urea Nitrogen 31 mg/dL (9-16); Calcium 8.7 mg/dL (8.4-10.2); Carbon Dioxide 26 mmol/L (22-29); Chloride 111 mmol/L (96-108); Creatinine Clr Calc Pharmacy 16.2; Estimated Glomerular Filt Rate 20; Glucose Random 106 mg/dL (60-115); Potassium 4.4 mmol/L (3.3-5.1); Sodium 144 mmol/L (135-145)
--- NOTE | 2021-06-24 07:53 | P.CDIC_ITS ---
CDI Concurrent Query Documentation Clarification: PHYSICIAN'S DOCUMENTATION REQUEST Date of Query: 06/24/21 0754 Patient Name: Patricia York Admit Date: 06/23/21 Dear Doctor, A review of the medical record indicates additional documentation may be needed. Please review below and update the documentation accordingly. Clinical Indicators: Risk Factors/Clinical Indicators/Treatments WBC 15 LA 2.5 Head injury due to trauma with hematoma head, scalp laceration Per ID consult: Bacteremia Blood culture 06/20/21: MRSA Please clarify which, if any, of the following is the most likely etiology of the above symptoms and treatment rendered: * Sepsis, present on admission * Systemic manifestations of infection, with 2 or more SIRS criteria which include: - Fever > 100.4F or hypothermia < 96.8 F - Leukocytosis - WBC > 12,000 or leukopenia, WBC < 4,000 or > 10% bands - Tachycardia > 90 beats/minute - Tachypnea - RR > 20 breaths/minute or PaCO2 < 32mmHg (Source: Merck Manual 2013) * Indicate the known or suspected organism * Indicate the known or suspected underlying infection, such as UTI, pneumonia, or cellulitis * Indicate if a suspected bacterial infection of unknown source * Indicate if associated with an implanted device such as a F/C, PICC line, orthopedic hardware, etc. * Localized infection only, without systemic illness - indicate the site/source, such as UTI, pneumonia, etc. * Bacteremia (abnormal lab finding only, does not indicate systemic illness) * Other (please specify) * Unable to determine Use of terms such as suspected, likely, concern for, or probable (associated with a specific diagnosis that is being evaluated, monitored, or treated as if it exists) are acceptable and can be coded in the inpatient setting, when documented at the time of discharge. Thank you, Julia Garcia RN Extension: [phone] Please use your independent medical judgment in providing your response. THIS QUERY IS PART OF THE PERMANENT MEDICAL RECORD Provider Response: Other Other Diagnosis: does not meet sepsis (poa) admit
--- NOTE | 2021-06-24 07:57 | P.PNIM_ITS ---
Subjective Subjective Date of Service: 06/24/21 Interval History: staph aureus bacteremia Review of Systems Denies any new complaint of chest pain or shortness of breath or abdominal pain or fever or chills or nausea or vomiting Denies any cough Denies any weakness or numbness or urinary complaints Physical Exam Vital Signs: Vital Signs: Last Vital Signs Temp 98.2 F 06/24/21 05:57 Pulse 70 06/24/21 05:57 Resp 21 H 06/24/21 05:57 BP 180/70 H 06/24/21 05:57 Pulse Ox 92 06/24/21 05:57 BMI result Body Mass Index 30.2 Appearance: Alert.? Oriented .? not in distress. cvs: rrr, [id number] res: clear to auscultation ,no rhonchii or wheezing abd: no rebound or guarding ,nt, bs present. ext pulses present , no cyanosis skin:has a palpable small hematoma on the back of her head, small amount of dry blood.? No evidence of acute bleed present. neuro: axo3 , nonfocal. Objective Data Active Medications Acetaminophen (Acetaminophen 325 Mg Tablet) 650 mg PO Q6H PRN PRN Reason: Pain, Mild (Pain Scale 1-3) Last Admin: 06/23/21 21:54 Dose: 650 mg Documented by: THOM Albuterol Sulfate (Albuterol Sulfate 90 Mcg 8 Gm Inhaler) 2 puff INHALE Q6H PRN PRN Reason: Wheezing Amiodarone HCl (Amiodarone Hcl 200 Mg Tablet) 200 mg PO DAILY [facility] Last Admin: 06/23/21 10:35 Dose: 200 mg Documented by: WINSOME Amlodipine Besylate (Amlodipine Besylate 10 Mg Tablet) 10 mg PO DAILY [facility]; Protocol Last Admin: 06/23/21 10:34 Dose: 10 mg Documented by: WINSOME Atorvastatin Calcium (Atorvastatin Calcium 20 Mg Tablet) 20 mg PO DAILY [facility] Last Admin: 06/23/21 10:35 Dose: 20 mg Documented by: WINSOME Calcitriol (Calcitriol 0.25 Mcg Capsule) 0.25 mcg PO Q2D [facility] Last Admin: 06/23/21 10:38 Dose: 0.25 mcg Documented by: WINSOME Docusate Sodium (Docusate Sodium 100 Mg Capsule) 100 mg PO DAILY PRN PRN Reason: Constipation Ferrous Sulfate (Ferrous Sulfate 324 Mg Tablet.) 324 mg PO DAILY [facility] Last Admin: 06/23/21 10:35 Dose: 324 mg Documented by: WINSOME Hydralazine HCl (Hydralazine Hcl 50 Mg Tablet) 100 mg PO BID [facility]; Protocol Last Admin: 06/23/21 21:55 Dose: 100 mg Documented by: THOM Lactated Ringer's (Lr) 1,000 mls @ 80 mls/hr IVCONT .[id number] [facility] Last Admin: 06/24/21 05:18 Dose: Not Given Documented by: LONNY Non-Admin Reason: IV Running Vancomycin HCl 500 mg/ Sodium (Chloride) 110 mls @ 110 mls/hr IV Q24H [facility] Last Infusion: 06/24/21 00:19 Dose: 0 mls/hr Documented by: LONNY Isosorbide Mononitrate (Isosorbide Mononitrate 60 Mg Tab.Er.24h) 60 mg PO DAILY [facility]; Protocol Last Admin: 06/23/21 10:34 Dose: 60 mg Documented by: WINSOME Meclizine HCl (Meclizine Hcl 25 Mg Tablet) 25 mg PO DAILY PRN PRN Reason: Vertigo Nitroglycerin (Nitroglycerin 0.4 Mg Tab.Subl) 0.4 mg SUBLINGUAL Q5M PRN PRN Reason: chest pain Patient Own Med( Memantine [Namenda Xr] 21 Mg Capsule) 1 each PO DAILY [facility] Last Admin: 06/23/21 10:53 Dose: 1 each Documented by: WINSOME Nystatin (Nystatin Powder 15 Gm Bottle) 1 appl TOPICAL BID [facility]; Protocol Last Admin: 06/23/21 23:25 Dose: Not Given Documented by: CASSANDRA Non-Admin Reason: Med Not Available Omeprazole (Omeprazole 20 Mg Capsule.) 20 mg PO DAILY@0630 [facility] Last Admin: 06/24/21 06:05 Dose: 20 mg Documented by: LONNY Ondansetron HCl (Ondansetron Hcl 4 Mg/2 Ml Vial) 4 mg IVPUSH Q8H PRN PRN Reason: Nausea and Vomiting Pharmacy Consult (Consult Rx Vancomycin Dosing) 1 each MISCELLANE DAILY PRN PRN Reason: Consult order Pregabalin (Pregabalin 50 Mg Capsule) 50 mg PO TID [facility] Last Admin: 06/23/21 21:56 Dose: 50 mg Documented by: THOM Rivastigmine Tartrate (Rivastigmine Tartrate 6 Mg Capsule) 6 mg PO BID [facility] Last Admin: 06/23/21 21:56 Dose: 6 mg Documented by: THOM Sertraline HCl (Sertraline Hcl 100 Mg Tablet) 100 mg PO DAILY [facility] Last Admin: 06/23/21 10:35 Dose: 100 mg Documented by: WINSOME Sodium Chloride (0.9 % Sodium Chloride Flush 3 Ml Syringe) 3 ml IVFLUSH QSHIFT [facility] Last Admin: 06/23/21 23:26 Dose: Not Given Documented by: CASSANDRA Non-Admin Reason: Patient Asleep Tiotropium [place] (Tiotropium [place] 18 Mcg Cap.W.Dev) 1 puff INHALE RDAILY [facility] Last Admin: 06/23/21 09:01 Dose: 1 puff Documented by: KILO Vitamin D (Cholecalciferol (Vitamin D3) 25 Mcg Tablet) 50 mcg PO DAILY [facility] Last Admin: 06/23/21 10:35 Dose: 50 mcg Documented by: WINSOME Labs CBC & Chem 7: 06/23/21 09:58 06/24/21 06:21 Labs: Laboratory Results - last 24 hr 06/23/21 06/24/21 10:04 06:21 PT 12.3 INR 1.1 Anion Gap 11 L Estim Creat Clear Calc 16.2 Estimated GFR 20 Random Glucose 106 Calcium 8.7 Microbiology Microbiology Results: Microbiology 06/22/21 Unknown Urine Culture - Preliminary Urine clean catch - Urine lutz top Gram negative carmine 06/20/21 13:51 Blood Culture - Final Blood - Venous Methicillin Res Staph Aureus Assessment and Plan (1) Staph aureus infection: Status: Acute (2) SARS-CoV-2 positive: Status: Acute (3) Hematoma: Status: Acute Assessment and Plan: 80-year-old female with past medical history significant for AFib on Eliquis, CHF who presents to the hospital with bleeding from a laceration her head found to have a large hematoma. 1.? Acute blood loss anemia -? secondary to hematoma s/p 2 units of PRBC-h/h 9 -? stool occult blood negative hold eliquis for now 2. hematoma of the head -? patient had a mechanical fall about 3 weeks ago, now has CT showing large central and right occipital hematoma with laceration and nondisplaced left occipital fracture consult General surgery-Recommend observation of the hematoma off anticoagulat ion -? monitor CBC- h/h stable around 8.9 3.? COVID positive - not? hypoxic, -? positive 2 weeks ago but continues to have cough -? will monitor respiratory status 4.? ? CHF -? not in exacerbation and not on a diuretic -? continue home meds 5? AFib -? continue amiodarone, hold apixaban given the bleeding 6 asymptomatic bacteriuria/pyuria:? Will stop ceftriaxone.? 7. mrsa bacteremia: 1/2 culture spositive, repeat blood cultures pending added vancomoniter vanco trough , renal function and elevtrolytes. ? Added repeat blood culture, echo. 8. 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 improving with gentle hydraion Will continue to monitor nephro eval Quality Stroke Does the patient have a stroke diagnosis?: No VTE Prior VTE?: No VTE Risk Level:: Medical - moderate - high VTE Device Contraindication: N/A - Device Ordered VTE Drug Contraindication: N/A - Med Ordered
[2021-06-24] MEDS: Cholecalciferol (Vitamin D3) 25 MCG TABLET 50 MCG PO (09:16)
[2021-06-24] MEDS: Atorvastatin Calcium 20 MG TABLET PO (09:16)
[2021-06-24] MEDS: Ferrous Sulfate 324 MG TABLET.DR PO (09:17)
[2021-06-24] MEDS: hydrALAZINE HCl 50 MG TABLET 100 MG PO ×2 (09:18→21:00)
[2021-06-24] MEDS: amLODIPine Besylate 10 MG TABLET PO (09:18)
[2021-06-24] MEDS: Sertraline HCL 100 MG TABLET PO (09:18)
[2021-06-24] MEDS: Isosorbide Mononitrate 60 MG TAB.ER.24H PO (09:18)
[2021-06-24] MEDS: Pregabalin 50 MG CAPSULE PO ×3 (09:18→21:00)
[2021-06-24] MEDS: Amiodarone HCL 200 MG TABLET PO (09:18)
--- NOTE | 2021-06-24 09:59 | PC.NURSE ---
Pt A&Ox3, lungs clear, no complaints of pain at this time. NSR on monitor. Pt OOB in room, ambulated with PT, AM care along with bed change completed, Awaiting bed assignment. Will continue to monitor.
--- NOTE | 2021-06-24 11:26 | PM.PNNEP ---
Subjective Subjective Date of Service: 06/24/21 Principal diagnosis: LINDA Interval history: Seen and exmamined, events noted Physical Exam Vital Signs: Vital Signs: Last Vital Signs Temp 98.2 F 06/24/21 05:57 Pulse 66 06/24/21 08:16 Resp 17 06/24/21 08:16 BP 149/75 H 06/24/21 09:30 Pulse Ox 92 06/24/21 05:57 BMI result Body Mass Index 30.2 Const: General: cooperative, no acute distress and well developed Nutritional Appearance: well nourished Orientation/consciousness: patient oriented x3 Limitations: no limitations HENMT: Other: palpable hematoma and scalp wound with no active bleeding noted, minimal tenderness Eyes: General: appearance normal, both eyes and all related structures Pupils: Equal, round and reactive pupils present Resp: Effort & Inspection: normal respiratory effort Auscultation: clear to auscultation bilaterally Cardio: Rate: regular rate Rhythm: regular rhythm GI: Palpation (GI): Soft to palpation and nontender Auscultation: normal bowel sounds Skin: General skin exam: no rashes or lesions noted Neuro: General: patient oriented x3 Cranial nerves: Yes Equal, round and reactive pupils present Cognition (Neuro): normal cognition Extrem: General: Yes normal to inspection, Yes no clubbing, cyanosis or edema and Yes no pedal edema Objective Data Labs CBC & Chem 7: 06/23/21 09:58 06/24/21 06:21 Labs: Laboratory Results - last 24 hr 06/24/21 06:21 Sodium 144 Potassium 4.4 Chloride 111 H Carbon Dioxide 26 Anion Gap 11 L BUN 31 H Creatinine 2.40 H Estim Creat Clear Calc 16.2 Estimated GFR 20 Random Glucose 106 Calcium 8.7 Microbiology Microbiology Results: Microbiology 06/22/21 Unknown Urine clean catch - Urine lutz top Urine Culture - Final Klebsiella pneumoniae 06/20/21 13:51 Blood - Venous Blood Culture - Final Methicillin Res Staph Aureus 06/20/21 11:28 Blood - Venous Blood Culture - Preliminary No growth after 48 hours. Procedures Date of Service Date of Service: 06/24/21 Assessment & Plan Assessment and plan (1) SARS-CoV-2 positive: Status: Acute (2) Hematoma: Status: Acute Assessment and Plan: 80-year-old female with past medical history significant for AFib on Eliquis, CHF, CKD 3 ( BSL SCr 1.5-1.8) who presents to the hospital with bleeding from a laceration her head found to have a large hematoma and LINDA on CKD and Staph bacteremia 1. LINDA: multifact ATN vs pre-renal; Sr cont to grad decr is encouraging sign; doubt AGN/AIN or OBs 2. CKD 3: BSL SCr 1.5-1.8 3. Vol status:looks good given h/o CHF 4. Staph bact MRSA and now on vanco; ques source 5. A.C: ques timing of r/s 6. Anemia: track and check Fe studies 7. Covid +: no evid of pulm covid at this time REC: cont to track renal func UOP, check with ID duration of ABX and whwether card echo neeeded; avoid Ntoxins; track vanco level and see if alt availbe given risk of vanco ATN; check Fe studies and track Hb rec tuttle instead of PIC lne if needs long course of ABX will follow with team Time Spent With Patient Time: Total time spent is greater than 50% in coordination of care (as documented) at patient's floor/unit and/or counseling patient: Progress Note: Quality Stroke Does the patient have a stroke diagnosis?: No
[2021-06-24 16:32] LABS: Vancomycin Random 15.3 mcg/mL (15-20)
[2021-06-24] MEDS: Lactated Ringers 1,000 ML 50 ML IVCONT (16:44)
[2021-06-24] MEDS: vancomycin HCL 500 MG in 0.9 % Sodium Chloride 100 ML 110 MG IV (18:47)
[2021-06-24] MEDS: Acetaminophen 325 MG TABLET 650 MG PO (21:21)
[2021-06-24] MEDS: 0.9 % Sodium Chloride Flush 3 ML SYRINGE IVFLUSH (21:22)
[2021-06-24] MEDS: Nystatin Powder 15 GM BOTTLE 1 APPL TOPICAL (22:36)
[2021-06-25] MEDS: Acetaminophen 325 MG TABLET 650 MG PO ×2 (03:54→21:40)
[2021-06-25 03:56] VITALS: BP 167/82; PULSE 74; RESP 20; TEMP 36.4; O2SAT 96
--- NOTE | 2021-06-25 04:45 | ECG_ITS ---
Test Reason : r side chest pain Blood Pressure : / mmHG Vent. Rate : 070 BPM Atrial Rate : 070 BPM P-R Int : 216 ms QRS Dur : 104 ms QT Int : 422 ms P-R-T Axes : -17 -33 112 degrees QTc Int : 455 ms Sinus rhythm with 1st degree A-V block Left axis deviation Minimal voltage criteria for LVH, may be normal variant ( Que product ) Anteroseptal infarct (cited on or before 24-JUN-2014) ST & T wave abnormality, consider lateral ischemia Abnormal ECG When compared with ECG of 20-JUN-2021 17:15, Serial changes of Anteroseptal infarct Present Referred By: Himanshu Marquez Electronically Signed By:Kenn Gamez
--- NOTE | 2021-06-25 05:03 | PM.EVENT ---
Event Note Date of Service: 06/25/21 Event Note: chest pain/shoulder pain: EKG non ischemic; troponins pending.
[2021-06-25] MEDS: Omeprazole 20 MG CAPSULE.DR PO (05:05)
[2021-06-25 06:10] LABS: Troponin-I High Sensitivity 175.9 ng/L (<3.5-17.0)
--- NOTE | 2021-06-25 06:20 | PC.NURSE ---
Patient c/o pain in the right side of neck, chest, shoulder and down right arm. BP 167/82, HR 75, RR 20, T 97.6, sats 96% 2L NC. Sinus rhythm with first degree on tele - no changes on tele. Dr. Marquez notified. EKG, trop ordered.
[2021-06-25 07:02] VITALS: BP 148/66; PULSE 65; RESP 20; TEMP 36.7; O2SAT 96
[2021-06-25 07:24] LABS: Creatinine Clr Calc Pharmacy 16.9; Estimated Glomerular Filt Rate 20
[2021-06-25 08:33] LABS: Troponin-I High Sensitivity 163.6 ng/L (<3.5-17.0)
[2021-06-25] MEDS: amLODIPine Besylate 10 MG TABLET PO (08:59)
[2021-06-25] MEDS: Cholecalciferol (Vitamin D3) 25 MCG TABLET 50 MCG PO (08:59)
[2021-06-25] MEDS: Ferrous Sulfate 324 MG TABLET.DR PO (08:59)
[2021-06-25] MEDS: Isosorbide Mononitrate 60 MG TAB.ER.24H PO (08:59)
[2021-06-25] MEDS: 0.9 % Sodium Chloride Flush 3 ML SYRINGE IVFLUSH ×3 (08:59→20:29)
[2021-06-25] MEDS: hydrALAZINE HCl 50 MG TABLET 100 MG PO ×2 (08:59→20:28)
[2021-06-25] MEDS: Sertraline HCL 100 MG TABLET PO (08:59)
[2021-06-25] MEDS: Pregabalin 50 MG CAPSULE PO ×3 (08:59→20:29)
[2021-06-25] MEDS: Atorvastatin Calcium 20 MG TABLET PO (09:00)
[2021-06-25] MEDS: Amiodarone HCL 200 MG TABLET PO (09:01)
[2021-06-25] MEDS: calcitrioL 0.25 MCG CAPSULE PO (09:02)
[2021-06-25] MEDS: Nystatin Powder 15 GM BOTTLE 1 APPL TOPICAL ×2 (09:09→20:29)
[2021-06-25 09:32] LABS: MANUAL DIFF FLAG NO
[2021-06-25 09:35] LABS: Basophils Percent Auto 0.3 % (0-2); Eosinophils Percent Auto 0.4 % (0-4); Hematocrit 29.6 % (37.0-47.0); Imm Gran Abs Auto 0.09 X10*3/uL (0.00-0.03); Lymphocytes Absolute Auto 0.6 X10*3/uL (1.2-4.9); Lymphocytes Percent Auto 6.6 % (20-40); Mean Corpuscular HGB Conc 30.4 g/dl (31.0-35.0); Mean Corpuscular Hemoglobin 29.6 pg (27.0-33.0); Mean Corpuscular Volume 97.4 fL (80.0-98.0); Monocytes Absolute Auto 0.7 X10*3/uL (0.1-1.2); Monocytes Percent Auto 7.6 % (2-11); Neutrophils Absolute Auto 7.7 x10*3/uL (2.0-8.3); Neutrophils Percent Auto 84.1 % (45-73); Platelet Count 105 X10*3/uL (160-400); Red Blood Count 3.04 X10*6/uL (4.20-5.50); Red Cell Distribution Width 15.1 % (11.0-16.0); White Blood Count 9.1 X10*3/uL (4.8-10.8)
--- NOTE | 2021-06-25 10:44 | PM.PNNEP ---
Subjective Subjective Date of Service: 06/25/21 Principal diagnosis: LINDA Interval history: Seen and exmamined, events noted Physical Exam Vital Signs: Vital Signs: Last Vital Signs Temp 98.0 F 06/25/21 07:02 Pulse 65 06/25/21 07:02 Resp 20 06/25/21 07:02 BP 148/66 H 06/25/21 07:02 Pulse Ox 96 06/25/21 07:02 BMI result Body Mass Index 31.6 Const: General: cooperative, no acute distress and well developed Nutritional Appearance: well nourished Orientation/consciousness: patient oriented x3 Limitations: no limitations HENMT: Other: palpable hematoma and scalp wound with no active bleeding noted, minimal tenderness Eyes: General: appearance normal, both eyes and all related structures Pupils: Equal, round and reactive pupils present Resp: Effort & Inspection: normal respiratory effort Auscultation: clear to auscultation bilaterally Cardio: Rate: regular rate Rhythm: regular rhythm GI: Palpation (GI): Soft to palpation and nontender Auscultation: normal bowel sounds Skin: General skin exam: no rashes or lesions noted Neuro: General: patient oriented x3 Cranial nerves: Yes Equal, round and reactive pupils present Cognition (Neuro): normal cognition Extrem: General: Yes normal to inspection, Yes no clubbing, cyanosis or edema and Yes no pedal edema Objective Data Labs CBC & Chem 7: 06/25/21 09:25 06/25/21 05:51 Labs: Laboratory Results - last 24 hr 06/24/21 06/25/21 06/25/21 15:59 05:13 05:51 WBC RBC Hgb Hct MCV MCH MCHC RDW Plt Count MPV Immature Gran % (Auto) Neut % (Auto) Lymph % (Auto) [place] % (Auto) Eos % (Auto) Baso % (Auto) Lymph # (Auto) [place] # (Auto) Eos # (Auto) Baso # (Auto) Abs Immat Gran (auto) Absolute Neuts (auto) Absolute Nucleated RBC Nucleated RBC % (auto) Creatinine 2.34 H Estim Creat Clear Calc 16.9 Estimated GFR 20 Troponin I High Sens 175.9 H* Random Vancomycin 15.3 06/25/21 06/25/21 07:56 09:25 WBC 9.1 RBC 3.04 L Hgb 9.0 L Hct 29.6 L MCV 97.4 MCH 29.6 MCHC 30.4 L RDW 15.1 Plt Count 105 L MPV 12.0 Immature Gran % (Auto) 1.0 H Neut % (Auto) 84.1 H Lymph % (Auto) 6.6 L [place] % (Auto) 7.6 Eos % (Auto) 0.4 Baso % (Auto) 0.3 Lymph # (Auto) 0.6 L [place] # (Auto) 0.7 Eos # (Auto) 0.0 Baso # (Auto) 0.0 Abs Immat Gran (auto) 0.09 H Absolute Neuts (auto) 7.7 Absolute Nucleated RBC 0.000 Nucleated RBC % (auto) 0.0 Creatinine Estim Creat Clear Calc Estimated GFR Troponin I High Sens 163.6 H* Random Vancomycin Microbiology Microbiology Results: Microbiology 06/23/21 09:58 Blood - Venous Blood Culture - Preliminary No growth after 24 hours. 06/23/21 09:58 Blood - Venous Blood Culture - Preliminary No growth after 24 hours. 06/22/21 Unknown Urine clean catch - Urine lutz top Urine Culture - Final Klebsiella pneumoniae 06/20/21 13:51 Blood - Venous Blood Culture - Final Methicillin Res Staph Aureus 06/20/21 11:28 Blood - Venous Blood Culture - Preliminary No growth after 48 hours. Procedures Date of Service Date of Service: 06/25/21 Assessment & Plan Assessment and plan (1) SARS-CoV-2 positive: Status: Acute (2) Hematoma: Status: Acute Assessment and Plan: 80-year-old female with past medical history significant for AFib on Eliquis, CHF, CKD 3 ( BSL SCr 1.5-1.8) who presents to the hospital with bleeding from a laceration her head found to have a large hematoma and LINDA on CKD and Staph bacteremia 1. LINDA: multifact ATN vs pre-renal; Sr cont to grad decr is encouraging sign; doubt AGN/AIN or OBs 2. CKD 3: BSL SCr 1.5-1.8 3. Vol status:looks good given h/o CHF 4. Staph bact MRSA and now on vanco; ques source 5. A.C: ques timing of r/s 6. Anemia: track and check Fe studies 7. Covid +: no evid of pulm covid at this time REC: cont to track renal func UOP, check with ID duration of ABX and whwether card echo neeeded; avoid Ntoxins; track vanco level and see if alt availbe given risk of vanco ATN; check Fe studies and track Hb rec tuttle instead of PIC lne if needs long course of ABX; will need outpt renal f/u ( I will arrange) will follow with team Time Spent With Patient Time: Total time spent is greater than 50% in coordination of care (as documented) at patient's floor/unit and/or counseling patient: Progress Note: Quality Stroke Does the patient have a stroke diagnosis?: No
[2021-06-25 11:23] VITALS: BP 115/58; PULSE 68; RESP 20; TEMP 36.7; O2SAT 92
[2021-06-25 14:11] VITALS: BMI 31.6
--- NOTE | 2021-06-25 14:18 | MHC.CLN ---
RE: CONSULT PT WITH INCREASED NUTRITION RISK R/T PRESSURE INJURY DIET RX: CARDAIC-APPROPRIATE RECOMMEND ADDING ENSURE BID TO INCREASE KCALS AND PROMOTE WOUND HEALING SUPP TO PROVIDE 700KCALS, 40G PROTEIN MONITOR PO INTAKE CLOSELY SEE ALSO CLINICAL NUTRITION ASSESSMENT
--- NOTE | 2021-06-25 14:30 | P.PNIM_ITS ---
Subjective Subjective Date of Service: 06/25/21 Interval History: seen and examined this morning follow up for anemia, hematoma, covid, LINDA had episode of chest pain overnight, now resolved. trops checked at that time elevated. denies sob, cough Review of Systems Review of Systems: Yes all other systems are reviewed and are negative Constitutional Constitutional: Denies chills and Denies fever(s) Respiratory Respiratory: Denies cough Gastrointestinal Gastrointestinal: Denies abdominal pain Physical Exam Vital Signs: Vital Signs: Last Vital Signs Temp 98.0 F 06/25/21 11:23 Pulse 68 06/25/21 11:23 Resp 20 06/25/21 11:23 BP 115/58 L 06/25/21 11:23 Pulse Ox 92 06/25/21 11:23 BMI result Body Mass Index 31.6 Const: General: comfortable, alert and awake Nutritional Appearance: overweight Orientation/consciousness: patient oriented x3 HENMT: Other: scalp tender, no active bleeding Resp: Effort & Inspection: normal respiratory effort and no respiratory distress Cardio: Rate: regular rate Rhythm: regular rhythm GI: Palpation (GI): Soft to palpation and nontender Skin: Other: ecchymosis left arm Neuro: General: patient oriented x3 Cranial nerves: Yes CN's II-XII intact bilaterally and Yes Bilaterally intact EOM present Objective Data Active Medications Acetaminophen (Acetaminophen 325 Mg Tablet) 650 mg PO Q6H PRN PRN Reason: Pain, Mild (Pain Scale 1-3) Last Admin: 06/25/21 03:54 Dose: 650 mg Documented by: ENDER Albuterol Sulfate (Albuterol Sulfate 90 Mcg 8 Gm Inhaler) 2 puff INHALE Q6H PRN PRN Reason: Wheezing Amiodarone HCl (Amiodarone Hcl 200 Mg Tablet) 200 mg PO DAILY [facility] Last Admin: 06/25/21 09:01 Dose: 200 mg Documented by: MICHA Amlodipine Besylate (Amlodipine Besylate 10 Mg Tablet) 10 mg PO DAILY [facility]; Protocol Last Admin: 06/25/21 08:59 Dose: 10 mg Documented by: MICHA Atorvastatin Calcium (Atorvastatin Calcium 20 Mg Tablet) 20 mg PO DAILY [facility] Last Admin: 06/25/21 09:00 Dose: 20 mg Documented by: MICHA Calcitriol (Calcitriol 0.25 Mcg Capsule) 0.25 mcg PO Q2D [facility] Last Admin: 06/25/21 09:02 Dose: 0.25 mcg Documented by: MICHA Docusate Sodium (Docusate Sodium 100 Mg Capsule) 100 mg PO DAILY PRN PRN Reason: Constipation Ferrous Sulfate (Ferrous Sulfate 324 Mg Tablet.) 324 mg PO DAILY [facility] Last Admin: 06/25/21 08:59 Dose: 324 mg Documented by: MICHA Hydralazine HCl (Hydralazine Hcl 50 Mg Tablet) 100 mg PO BID [facility]; Protocol Last Admin: 06/25/21 08:59 Dose: 100 mg Documented by: MICHA Vancomycin HCl 500 mg/ Sodium (Chloride) 110 mls @ 110 mls/hr IV Q24H [facility] Last Infusion: 06/24/21 21:00 Dose: 0 mls/hr Documented by: ENDER Isosorbide Mononitrate (Isosorbide Mononitrate 60 Mg Tab.Er.24h) 60 mg PO DAILY [facility]; Protocol Last Admin: 06/25/21 08:59 Dose: 60 mg Documented by: MICHA Meclizine HCl (Meclizine Hcl 25 Mg Tablet) 25 mg PO DAILY PRN PRN Reason: Vertigo Nitroglycerin (Nitroglycerin 0.4 Mg Tab.Subl) 0.4 mg SUBLINGUAL Q5M PRN PRN Reason: chest pain Patient Own Med( Memantine [Namenda Xr] 21 Mg Capsule) 1 each PO DAILY [facility] Last Admin: 06/25/21 09:03 Dose: 1 each Documented by: MICHA Nystatin (Nystatin Powder 15 Gm Bottle) 1 appl TOPICAL BID [facility]; Protocol Last Admin: 06/25/21 09:09 Dose: 1 appl Documented by: MICHA Omeprazole (Omeprazole 20 Mg Capsule.) 20 mg PO DAILY@0630 [facility] Last Admin: 06/25/21 05:05 Dose: 20 mg Documented by: ENDER Ondansetron HCl (Ondansetron Hcl 4 Mg/2 Ml Vial) 4 mg IVPUSH Q8H PRN PRN Reason: Nausea and Vomiting Pharmacy Consult (Consult Rx Vancomycin Dosing) 1 each MISCELLANE DAILY PRN PRN Reason: Consult order Pregabalin (Pregabalin 50 Mg Capsule) 50 mg PO TID [facility] Last Admin: 01/20/22 08:59 Dose: 50 mg Documented by: MICHA Rivastigmine Tartrate (Rivastigmine Tartrate 6 Mg Capsule) 6 mg PO BID [facility] Last Admin: 06/25/21 08:59 Dose: 6 mg Documented by: MICHA Sertraline HCl (Sertraline Hcl 100 Mg Tablet) 100 mg PO DAILY [facility] Last Admin: 06/25/21 08:59 Dose: 100 mg Documented by: MICHA Sodium Chloride (0.9 % Sodium Chloride Flush 3 Ml Syringe) 3 ml IVFLUSH QSHIFT [facility] Last Admin: 06/25/21 08:59 Dose: 3 ml Documented by: MICHA Tiotropium [employer] (Tiotropium [employer] 18 Mcg Cap.W.Dev) 1 puff INHALE RDAILY [facility] Last Admin: 06/25/21 08:12 Dose: Not Given Documented by: CHIP Non-Admin Reason: Patient Refused Vitamin D (Cholecalciferol (Vitamin D3) 25 Mcg Tablet) 50 mcg PO DAILY [facility] Last Admin: 06/25/21 08:59 Dose: 50 mcg Documented by: MICHA Labs CBC & Chem 7: 06/25/21 09:25 06/25/21 05:51 Labs: Laboratory Results - last 24 hr 06/24/21 06/25/21 06/25/21 15:59 05:13 05:51 MCV MCH MCHC RDW Plt Count MPV Immature Gran % (Auto) Neut % (Auto) Lymph % (Auto) [place] % (Auto) Eos % (Auto) Baso % (Auto) Lymph # (Auto) [place] # (Auto) Eos # (Auto) Baso # (Auto) Abs Immat Gran (auto) Absolute Neuts (auto) Absolute Nucleated RBC Nucleated RBC % (auto) Estim Creat Clear Calc 16.9 Estimated GFR 20 Troponin I High Sens 175.9 H* Random Vancomycin 15.3 06/25/21 06/25/21 07:56 09:25 MCV 97.4 MCH 29.6 MCHC 30.4 L RDW 15.1 Plt Count 105 L MPV 12.0 Immature Gran % (Auto) 1.0 H Neut % (Auto) 84.1 H Lymph % (Auto) 6.6 L [place] % (Auto) 7.6 Eos % (Auto) 0.4 Baso % (Auto) 0.3 Lymph # (Auto) 0.6 L [place] # (Auto) 0.7 Eos # (Auto) 0.0 Baso # (Auto) 0.0 Abs Immat Gran (auto) 0.09 H Absolute Neuts (auto) 7.7 Absolute Nucleated RBC 0.000 Nucleated RBC % (auto) 0.0 Estim Creat Clear Calc Estimated GFR Troponin I High Sens 163.6 H* Random Vancomycin Microbiology Microbiology Results: Microbiology 06/20/21 11:28 Blood Culture - Final Blood - Venous No growth after 5 days. 06/23/21 09:58 Blood Culture - Preliminary Blood - Venous No growth after 48 hours. 06/23/21 09:58 Blood Culture - Preliminary Blood - Venous No growth after 48 hours. Assessment and Plan (1) Staph aureus infection: Status: Acute Assessment and Plan: 80-year-old female with past medical history significant for AFib on Eliquis, CHF who presents to the hospital with bleeding from a laceration her head found to have a large hematoma. chest pain episode of chest pain overnight now resolved, ekg similar to previous trops elevated but flat ECHO pending cardiology consult mrsa bacteremia: BCx from 06/20/2021 1/2 culture positive for MRSA, repeat BCx negative x 48 hours unclear source echo pending will need 4 weeks IV abx on discharge per ID given CKD, will order tuttle rather than PICC linda on ckd stage 4:? improving slowly Will continue to monitor nephro eval Acute blood loss anemia secondary to hematoma s/p 2 units of PRBC-h/h 9 stool occult blood negative H/H stable Eliquis on hold hematoma of the head patient had a mechanical fall 3 weeks [employer], now has CT showing large central and right occipital hematoma with laceration and nondisplaced left occipital fracture consult General surgery-Recommend observation of the hematoma off anticoagulation COVID positive no hypoxia. positive 2 weeks ago but continues to have cough monitor respiratory status CHF not in exacerbation and not on a diuretic AFib continue amiodarone hold apixaban given hematoma/anemia asymptomatic bacteriuria/pyuria:? ceftriaxone stopped. UCx growing klebsiella discussed with ID, no need for treatment, pt asymptomatic HTN continue hydralazine, norvasc nocturnal hypoxia 2L o2 at night dvt ppx -mechanical devices; eliquis on hold for occipital fracture/hematoma code status - full code attending - dr. gil dispo - seen by PT rec [place] with services with medically ready Quality Stroke Does the patient have a stroke diagnosis?: No VTE Prior VTE?: No VTE Risk Level:: Medical - moderate - high VTE Device Contraindication: N/A - Device Ordered VTE Drug Contraindication: N/A - Med Ordered
[2021-06-25 15:03] VITALS: BP 149/67; PULSE 64; RESP 20; TEMP 36.4; O2SAT 92
[2021-06-25] MEDS: vancomycin HCL 500 MG in 0.9 % Sodium Chloride 100 ML 110 MG IV (18:21)
[2021-06-25 19:07] VITALS: BP 173/75; PULSE 68; RESP 20; TEMP 36.5; O2SAT 96
[2021-06-25 23:11] VITALS: BP 158/67; PULSE 66; RESP 20; TEMP 36.7; O2SAT 96
[2021-06-26 04:00] VITALS: BP 161/72; PULSE 59; RESP 18; TEMP 36.8; O2SAT 94
[2021-06-26] MEDS: Omeprazole 20 MG CAPSULE.DR PO (04:39)
[2021-06-26 07:05] LABS: Anion Gap 11 (12-20); Blood Urea Nitrogen 28 mg/dL (9-16); Calcium 8.7 mg/dL (8.4-10.2); Carbon Dioxide 23 mmol/L (22-29); Chloride 112 mmol/L (96-108); Creatinine Clr Calc Pharmacy 19.1; Estimated Glomerular Filt Rate 23; Glucose Random 93 mg/dL (60-115); Potassium 4.3 mmol/L (3.3-5.1); Sodium 142 mmol/L (135-145)
[2021-06-26 07:27] VITALS: BP 149/70; PULSE 61; RESP 16; TEMP 36.9; O2SAT 94
[2021-06-26] MEDS: Lidocaine HCl 1%/Epi 1:100,000 20 ML VIAL 10 ML INFILTRATI (09:43)
[2021-06-26] MEDS: Isosorbide Mononitrate 60 MG TAB.ER.24H PO (10:46)
[2021-06-26] MEDS: hydrALAZINE HCl 50 MG TABLET 100 MG PO ×2 (10:46→21:33)
[2021-06-26] MEDS: Cholecalciferol (Vitamin D3) 25 MCG TABLET 50 MCG PO (10:46)
[2021-06-26] MEDS: Atorvastatin Calcium 20 MG TABLET PO (10:46)
[2021-06-26] MEDS: Amiodarone HCL 200 MG TABLET PO (10:46)
[2021-06-26] MEDS: Sertraline HCL 100 MG TABLET PO (10:47)
[2021-06-26] MEDS: Pregabalin 50 MG CAPSULE PO ×3 (10:47→21:33)
[2021-06-26] MEDS: amLODIPine Besylate 10 MG TABLET PO (10:47)
[2021-06-26] MEDS: Nystatin Powder 15 GM BOTTLE 1 APPL TOPICAL ×2 (10:49→21:33)
[2021-06-26] MEDS: Ferrous Sulfate 324 MG TABLET.DR PO (10:49)
--- NOTE | 2021-06-26 11:10 | CA_ITS ---
Transthoracic Echocardiogram Patient (Last, First, Middle): Patricia York L Gender: Female Date of : 1940 Age: 80 Procedure Date: 06/26/2021 Procedure Type: Transthoracic Echocardiogram Location: [facility] [place] Height: 149.86 cm Weight: 67.59 kg BSA: 1.63 m2 Heart Rate: bpm BP: 145 / 58 mmHg [employer] Supervisor: KOBE Gramajo MD: Amber Turk MD Symptoms: mrsa bacteremia Study Quality: Good Conclusions: - Normal left ventricular size and systolic function. - Normal right ventricular cavity size and systolic function. - The left atrium is severely dilated. - A bioprosthetic aortic valve is present. The prosthetic aortic valve appears to be functioning normally. The mean gradient is 21 mmHg. There is no aortic valve regurgitation. Findings Left Ventricle Normal left ventricular size and systolic function. The visually estimated ejection fraction is between 60-65%. There is no evidence of regional wall motion abnormalities. Diastolic function is indeterminate on the basis of available data. Right Ventricle Normal right ventricular cavity size and systolic function. Atria The left atrium is severely dilated. Aortic Valve A bioprosthetic aortic valve is present. The prosthetic aortic valve appears to be functioning normally. The mean gradient is 21 mmHg. There is no aortic valve regurgitation. Mitral Valve There is severe mitral annular calcification. There is no mitral valve regurgitation. There is no mitral valve stenosis. Pulmonic Valve The pulmonic valve is likely normal. Tricuspid Valve Normal tricuspid valve structure and function. There is trace tricuspid valve regurgitation. Tricuspid regurgitation envelope is inadequate for calculation of right ventricular systolic pressure. Normal right atrial pressure. Great Vessels All visible segments of the aorta are normal in size. The visualized portions of the pulmonary artery and branches are normal. Venous The inferior vena cava is normal in size and collapses greater than 50% with inspiration. Pericardium/Pleural There is no evidence of pericardial effusion. Prior Study Comparison No significant change compared to prior study dated: 02/25/2021. Measurements 2D Linear Measurements IVSd: 1.22 0.6-0.9/0.6-1.0 cm LVIDd: 4.98 3.9-5.3/4.2-5.9 cm LVIDd Index: 3.06 2.4-3.2/2.2-3.1 cm/m2 LVIDs: 2.73 2.0-3.6 cm LVPWd: 1.11 0.7-1.1 cm LA Diam: 4.00 2.7-3.8/3.0-4.0 cm LAIDs Index: 2.45 1.5-2.3 cm/m2 LV Mass: 277.80 67-162/88-224 g LV Mass Index: 170.43 43-95/49-115 g/m2 LVOT Diam: 2.00 3.0+(-)1.3 cm 2D Systolic Function EF 4C: 61.90 >55% EF 2C: 56.30 >55% EF BiP: 59.90 >55% Mitral Valve MV Pk E: 1.15 MV PK A: 1.10 MV Decel Time: 253.00 E/A: 1.00 E'Lateral: 5.00 E'Medial: 3.81 E/E' Med: 30.20 E/E' Lat: 23.00 PHT: 74.00 MVA PHT: 2.97 Decel [place]: 4.55 Aortic Valve AoV Pk Yovany: 3.01 AoV Mn Yovany: 2.20 AoV VTI: 0.67 AoV Pk Grad: 36.00 Aov Mn Grad: 21.00 RADHA Cont.VTI: 1.15 LVOT LVOT Pk Yovany: 0.98 LVOT Mn Yovany: 0.78 LVOT VTI: 0.24 LVOT Pk Grad: 4.00 LVOT Mn Grad: 3.00 LVOT Diam: 2.00 LVOT Area: 3.14 Diastolic Function MV Pk E: 1.15 MV Pk A: 1.10 E/A: 1.00 E'Medial: 3.81 E/E' Med: 30.20 E' Laterial: 5.00 E/E' Lat: 23.00 Tricuspid Valve RA Press: 8.00 Great Vessels Aorta Ao Asc: 3.30 2.1-3.4 cm Updated in Other Vendor System with Status of Final Kenn Gamez MD electronically signed on 06/26/2021 6:55:38 PM with status of Final
[2021-06-26 11:25] VITALS: BP 151/67; PULSE 71; RESP 16; TEMP 37.4; O2SAT 96
--- NOTE | 2021-06-26 13:59 | MHC.CLN ---
PT WITH INCREASED NUTRITION RISK R/T PRESSURE INJURY DIET RX: CARDAIC-APPROPRIATE WILL RE-START ENSURE BID TO INCREASE KCALS AND PROMOTE WOUND HEALING SUPP TO PROVIDE 700KCALS, 40G PROTEIN MONITOR PO INTAKE CLOSELY
[2021-06-26] MEDS: 0.9 % Sodium Chloride Flush 3 ML SYRINGE IVFLUSH ×2 (14:41→15:27)
--- NOTE | 2021-06-26 14:44 | PC.NURSE ---
Skin/wound assessment completed. Patient has a stage 2 pressure ulcer to buttocks, Slight peeling of medium sized bump- Triad applied covered with foam dressing.
--- NOTE | 2021-06-26 14:56 | HO.PM.IMPN ---
Subjective Subjective Date of Service: 06/26/21 Interval History: Seen and examined this morning Follow-up for COVID, bacteremia Denies shortness of breath, cough Review of Systems Review of Systems: Yes all other systems are reviewed and are negative Constitutional Constitutional: Denies chills and Denies fever(s) Cardiovascular Cardiovascular: Denies chest pain Gastrointestinal Gastrointestinal: Denies abdominal pain Physical Exam Vital Signs: Vital Signs: Last Vital Signs Temp 99.4 F 06/26/21 11:25 Pulse 71 06/26/21 11:25 Resp 16 06/26/21 11:25 BP 151/67 H 06/26/21 11:25 Pulse Ox 96 06/26/21 11:25 BMI result Body Mass Index 31.6 Const: General: comfortable, alert and awake Nutritional Appearance: overweight Orientation/consciousness: patient oriented x3 HENMT: Other: scalp tender, no active bleeding Resp: Effort & Inspection: normal respiratory effort and no respiratory distress Cardio: Rate: regular rate Rhythm: regular rhythm GI: Palpation (GI): Soft to palpation and nontender Skin: Other: ecchymosis left arm Neuro: General: patient oriented x3 Cranial nerves: Yes CN's II-XII intact bilaterally and Yes Bilaterally intact EOM present Objective Data Active Medications Acetaminophen (Acetaminophen 325 Mg Tablet) 650 mg PO Q6H PRN PRN Reason: Pain, Mild (Pain Scale 1-3) Last Admin: 06/25/21 21:40 Dose: 650 mg Documented by: PRATIMA Albuterol Sulfate (Albuterol Sulfate 90 Mcg 8 Gm Inhaler) 2 puff INHALE Q6H PRN PRN Reason: Wheezing Amiodarone HCl (Amiodarone Hcl 200 Mg Tablet) 200 mg PO DAILY [facility] Last Admin: 06/26/21 10:46 Dose: 200 mg Documented by: JAYSON Amlodipine Besylate (Amlodipine Besylate 10 Mg Tablet) 10 mg PO DAILY [facility]; Protocol Last Admin: 06/26/21 10:47 Dose: 10 mg Documented by: JAYSON Atorvastatin Calcium (Atorvastatin Calcium 20 Mg Tablet) 20 mg PO DAILY [facility] Last Admin: 06/26/21 10:46 Dose: 20 mg Documented by: JAYSON Calcitriol (Calcitriol 0.25 Mcg Capsule) 0.25 mcg PO Q2D [facility] Last Admin: 06/25/21 09:02 Dose: 0.25 mcg Documented by: MICHA Docusate Sodium (Docusate Sodium 100 Mg Capsule) 100 mg PO DAILY PRN PRN Reason: Constipation Ferrous Sulfate (Ferrous Sulfate 324 Mg Tablet.) 324 mg PO DAILY [facility] Last Admin: 06/26/21 10:49 Dose: 324 mg Documented by: JAYSON Hydralazine HCl (Hydralazine Hcl 50 Mg Tablet) 100 mg PO BID [facility]; Protocol Last Admin: 06/26/21 10:46 Dose: 100 mg Documented by: JAYSON Vancomycin HCl 500 mg/ Sodium (Chloride) 110 mls @ 110 mls/hr IV Q24H [facility] Last Infusion: 06/25/21 19:36 Dose: 0 mls/hr Documented by: PRATIMA Isosorbide Mononitrate (Isosorbide Mononitrate 60 Mg Tab.Er.24h) 60 mg PO DAILY [facility]; Protocol Last Admin: 06/26/21 10:46 Dose: 60 mg Documented by: JAYSON Meclizine HCl (Meclizine Hcl 25 Mg Tablet) 25 mg PO DAILY PRN PRN Reason: Vertigo Nitroglycerin (Nitroglycerin 0.4 Mg Tab.Subl) 0.4 mg SUBLINGUAL Q5M PRN PRN Reason: chest pain Patient Own Med( Memantine [Namenda Xr] 21 Mg Capsule) 1 each PO DAILY [facility] Last Admin: 06/26/21 10:48 Dose: 1 each Documented by: JAYSON Nystatin (Nystatin Powder 15 Gm Bottle) 1 appl TOPICAL BID [facility]; Protocol Last Admin: 06/26/21 10:49 Dose: 1 appl Documented by: JAYSON Omeprazole (Omeprazole 20 Mg Capsule.) 20 mg PO DAILY@0630 [facility] Last Admin: 06/26/21 04:39 Dose: 20 mg Documented by: PRATIMA Ondansetron HCl (Ondansetron Hcl 4 Mg/2 Ml Vial) 4 mg IVPUSH Q8H PRN PRN Reason: Nausea and Vomiting Pharmacy Consult (Consult Rx Vancomycin Dosing) 1 each MISCELLANE DAILY PRN PRN Reason: Consult order Pregabalin (Pregabalin 50 Mg Capsule) 50 mg PO TID [facility] Last Admin: 06/26/21 14:40 Dose: 50 mg Documented by: JAYSON Rivastigmine Tartrate (Rivastigmine Tartrate 6 Mg Capsule) 6 mg PO BID [facility] Last Admin: 06/26/21 10:46 Dose: 6 mg Documented by: JAYSON Sertraline HCl (Sertraline Hcl 100 Mg Tablet) 100 mg PO DAILY [facility] Last Admin: 06/26/21 10:47 Dose: 100 mg Documented by: JAYSON Sodium Chloride (0.9 % Sodium Chloride Flush 3 Ml Syringe) 3 ml IVFLUSH QSHIFT [facility] Last Admin: 06/26/21 14:41 Dose: 3 ml Documented by: JAYSON Tiotropium [place] (Tiotropium [place] 18 Mcg Cap.W.Dev) 1 puff INHALE RDAILY [facility] Last Admin: 06/26/21 08:37 Dose: Not Given Documented by: CHIP Non-Admin Reason: pt off unit Vitamin D (Cholecalciferol (Vitamin D3) 25 Mcg Tablet) 50 mcg PO DAILY [facility] Last Admin: 06/26/21 10:46 Dose: 50 mcg Documented by: JAYSON Labs CBC & Chem 7: 06/25/21 09:25 06/26/21 06:18 Labs: Laboratory Results - last 24 hr 06/26/21 06:18 Anion Gap 11 L Estim Creat Clear Calc 19.1 Estimated GFR 23 Random Glucose 93 Calcium 8.7 Microbiology Microbiology Results: Microbiology 06/20/21 11:28 Blood Culture - Final Blood - Venous No growth after 5 days. 06/23/21 09:58 Blood Culture - Preliminary Blood - Venous No growth after 48 hours. 06/23/21 09:58 Blood Culture - Preliminary Blood - Venous No growth after 48 hours. Assessment and Plan (1) SARS-CoV-2 positive: Status: Acute (2) MRSA bacteremia: Status: Acute Assessment and Plan: 80-year-old female with past medical history significant for AFib on Eliquis, CHF who presents to the hospital with bleeding from a laceration her head found to have a large hematoma. mrsa bacteremia: BCx from 06/20/2021 1/2 culture positive for MRSA, repeat BCx negative x 48 hours unclear source echo pending will need 4 weeks IV abx on discharge per ID tuttle placed 06/26 chest pain episode of chest pain, no recurrence ekg similar to previous trops elevated but flat ECHO pending cardiology consult pending db on ckd stage 4:? Scr down to 2.07 nephro following follow BMP Acute blood loss anemia secondary to hematoma s/p 2 units of PRBC-h/h 9 stool occult blood negative H/H stable Eliquis on hold hematoma of the head patient had a mechanical fall 3 weeks [employer], now has CT showing large central and right occipital hematoma with laceration and nondisplaced left occipital fracture consult General surgery-Recommend observation of the hematoma off anticoagulation COVID positive no hypoxia. positive 2 weeks ago but continues to have cough monitor respiratory status CHF not in exacerbation and not on a diuretic AFib continue amiodarone hold apixaban given hematoma/anemia, likely hold for 14 days asymptomatic bacteriuria/pyuria:? ceftriaxone stopped. UCx growing klebsiella discussed with ID, no need for treatment, pt asymptomatic HTN continue hydralazine, norvasc nocturnal hypoxia 2L o2 at night dvt ppx -mechanical devices; eliquis on hold for occipital fracture/hematoma code status - full code attending - dr. gil dispo - seen by PT rec home with services with medically ready Quality Stroke Does the patient have a stroke diagnosis?: No VTE Prior VTE?: No VTE Risk Level:: Medical - moderate - high VTE Device Contraindication: N/A - Device Ordered VTE Drug Contraindication: N/A - Med Ordered
[2021-06-26 15:23] VITALS: BP 140/63; PULSE 64; RESP 20; TEMP 37.2; O2SAT 90
--- NOTE | 2021-06-26 15:24 | PM.PNNEP ---
Subjective Subjective Date of Service: 06/26/21 Principal diagnosis: LINDA Interval history: Seen and examined, events noted Physical Exam Vital Signs: Vital Signs: Last Vital Signs Temp 99.4 F 06/26/21 11:25 Pulse 71 06/26/21 11:25 Resp 16 06/26/21 11:25 BP 151/67 H 06/26/21 11:25 Pulse Ox 96 06/26/21 11:25 BMI result Body Mass Index 31.6 Const: General: cooperative, no acute distress and well developed Nutritional Appearance: well nourished Orientation/consciousness: patient oriented x3 Limitations: no limitations HENMT: Other: palpable hematoma and scalp wound with no active bleeding noted, minimal tenderness Eyes: General: appearance normal, both eyes and all related structures Pupils: Equal, round and reactive pupils present Resp: Effort & Inspection: normal respiratory effort Auscultation: clear to auscultation bilaterally Cardio: Rate: regular rate Rhythm: regular rhythm GI: Palpation (GI): Soft to palpation and nontender Auscultation: normal bowel sounds Skin: General skin exam: no rashes or lesions noted Neuro: General: patient oriented x3 Cranial nerves: Yes Equal, round and reactive pupils present Cognition (Neuro): normal cognition Extrem: General: Yes normal to inspection, Yes no clubbing, cyanosis or edema and Yes no pedal edema Objective Data Labs CBC & Chem 7: 06/25/21 09:25 06/26/21 06:18 Labs: Laboratory Results - last 24 hr 06/26/21 06:18 Sodium 142 Potassium 4.3 Chloride 112 H Carbon Dioxide 23 Anion Gap 11 L BUN 28 H Creatinine 2.07 H Estim Creat Clear Calc 19.1 Estimated GFR 23 Random Glucose 93 Calcium 8.7 Microbiology Microbiology Results: Microbiology 06/20/21 11:28 Blood - Venous Blood Culture - Final No growth after 5 days. 06/23/21 09:58 Blood - Venous Blood Culture - Preliminary No growth after 48 hours. 06/23/21 09:58 Blood - Venous Blood Culture - Preliminary No growth after 48 hours. 06/22/21 Unknown Urine clean catch - Urine lutz top Urine Culture - Final Klebsiella pneumoniae 06/20/21 13:51 Blood - Venous Blood Culture - Final Methicillin Res Staph Aureus Procedures Date of Service Date of Service: 06/26/21 Assessment & Plan Assessment and plan (1) SARS-CoV-2 positive: Status: Acute (2) Hematoma: Status: Acute Assessment and Plan: 80-year-old female with past medical history significant for AFib on Eliquis, CHF, CKD 3 ( BSL SCr 1.5-1.8) who presents to the hospital with bleeding from a laceration her head found to have a large hematoma and LINDA on CKD and Staph bacteremia 1. LINDA: multifact ATN vs pre-renal; Sr cont to grad decr is encouraging sign--approaching BSL; doubt AGN/AIN or OBs 2. CKD 3: BSL SCr 1.5-1.8 3. Vol status:looks good given h/o CHF 4. Staph bact MRSA and now on vanco; ques source 5. A.C: ques timing of r/s 6. Anemia: track and check Fe studies 7. Covid +: no evid of pulm covid at this time REC: cont to track renal func UOP, check with ID duration of ABX and whwether card echo neeeded; avoid Ntoxins; track vanco level and see if alt availbe given risk of vanco ATN rec tuttle instead of PIC lne if needs long course of ABX; will need outpt renal f/u ( I will arrange) will follow with team Time Spent With Patient Time: Total time spent is greater than 50% in coordination of care (as documented) at patient's floor/unit and/or counseling patient: Progress Note: Quality Stroke Does the patient have a stroke diagnosis?: No
[2021-06-26] MEDS: vancomycin HCL 500 MG in 0.9 % Sodium Chloride 100 ML 110 MG IV (17:52)
--- NOTE | 2021-06-26 18:08 | P.CONCA_ITS ---
History of Present Illness History of Present Illness Date of Service: 06/26/21 Requesting physician: Kellie Smith Chief complaint: Hematoma, Anemia, cp Narrative: 80-year-old female with past medical history significant for atrial fibrillation for which she was on Eliquis, congestive heart failure, kidney disease and transcatheter valve replacement who presented with mechanical fall and large hematoma on the scalp. She was anemic and received blood transfusion. She also has MRSA bacteremia with repeat blood cultures negative at this point. It appears patient complained of chest pain 2 days ago. Her blood troponin levels were mildly abnormal. We have been asked to comment about the chest pain. Patient currently is denying any chest pain. He does not recall having any chest pain. She had a bacteremia but it is clearing up. She is currently off anticoagulation due to large hematoma in the occipital region. FORMERLY [facility], [facility] Past Medical History Medical History (Updated 06/26/21 @ 18:13 by Kenn Gamez MD) (HFpEF) heart failure with preserved ejection fraction Acute blood loss anemia Afib Anemia Anxiety Aortic valve stenosis Asthma Bacteremia Bacteremia Bacteremia Basal cell carcinoma Benign essential hypertension Cellulitis Chronic kidney disease, stage 4 (severe) COPD (chronic obstructive pulmonary disease) Diabetic polyneuropathy Fracture Gallstones Hospital discharge follow-up Hypernatremia Melanoma Mild cognitive impairment with memory loss Nocturnal hypoxemia Obesity (BMI 30-39.9) Paroxysmal atrial fibrillation Pure hypercholesterolemia Pyuria Thrombocytopenia Type 2 diabetes mellitus with diabetic chronic kidney disease Family History Family History Father Medical history unknown Mother Acute myeloid leukemia Cancer Maternal Grandmother Myocardial infarction Brother Myocardial infarction Sister Brain aneurysm Family history: reviewed and not pertinent Surgical History Surgical History History of cardiac catheterization History of colonoscopy History of eye surgery 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) Stented coronary artery Social History Social History Household Members: Children Housing: House Are you a primary care team coordinator scheduler to a significant other at home: No Alcohol intake: never Patient Tobacco Use Status: Former Tobacco user Years Smoked: 19 e-Cigarette/Vaping Use: Never Used Second Hand Smoke Exposure: Yes Advance Directives Date on File: 07/24/20 service: No Current occupational status: retired Cognitive needs: No Hearing needs: No Vision needs: No Meds Allergies Allergy/AdvReac Type Severity Reaction Status Date / Time Penicillins [PENICILLINS] Allergy Severe HIVES/SWELL Verified 06/16/21 12:02 ING Active Medications: Current Medications Acetaminophen (Acetaminophen 325 Mg Tablet) 650 mg PO Q6H PRN PRN Reason: Pain, Mild (Pain Scale 1-3) Last Admin: 06/25/21 21:40 Dose: 650 mg Documented by: Albuterol Sulfate (Albuterol Sulfate 90 Mcg 8 Gm Inhaler) 2 puff INHALE Q6H PRN PRN Reason: Wheezing Amiodarone HCl (Amiodarone Hcl 200 Mg Tablet) 200 mg PO DAILY COUNTS INCLUDE 234 BEDS AT THE [facility] Last Admin: 06/26/21 10:46 Dose: 200 mg Documented by: Amlodipine Besylate (Amlodipine Besylate 10 Mg Tablet) 10 mg PO DAILY COUNTS INCLUDE 234 BEDS AT THE [facility]; Protocol Last Admin: 06/26/21 10:47 Dose: 10 mg Documented by: Atorvastatin Calcium (Atorvastatin Calcium 20 Mg Tablet) 20 mg PO DAILY COUNTS INCLUDE 234 BEDS AT THE [facility] Last Admin: 06/26/21 10:46 Dose: 20 mg Documented by: Calcitriol (Calcitriol 0.25 Mcg Capsule) 0.25 mcg PO Q2D COUNTS INCLUDE 234 BEDS AT THE [facility] Last Admin: 06/25/21 09:02 Dose: 0.25 mcg Documented by: Docusate Sodium (Docusate Sodium 100 Mg Capsule) 100 mg PO DAILY PRN PRN Reason: Constipation Ferrous Sulfate (Ferrous Sulfate 324 Mg Tablet.) 324 mg PO DAILY COUNTS INCLUDE 234 BEDS AT THE [facility] Last Admin: 06/26/21 10:49 Dose: 324 mg Documented by: Hydralazine HCl (Hydralazine Hcl 50 Mg Tablet) 100 mg PO BID COUNTS INCLUDE 234 BEDS AT THE [facility]; Protocol Last Admin: 06/26/21 10:46 Dose: 100 mg Documented by: Vancomycin HCl 500 mg/ Sodium (Chloride) 110 mls @ 110 mls/hr IV Q24H COUNTS INCLUDE 234 BEDS AT THE [facility] Last Infusion: 06/26/21 18:02 Dose: 0 mls/hr Documented by: Isosorbide Mononitrate (Isosorbide Mononitrate 60 Mg Tab.Er.24h) 60 mg PO DAILY COUNTS INCLUDE 234 BEDS AT THE [facility]; Protocol Last Admin: 06/26/21 10:46 Dose: 60 mg Documented by: Meclizine HCl (Meclizine Hcl 25 Mg Tablet) 25 mg PO DAILY PRN PRN Reason: Vertigo Nitroglycerin (Nitroglycerin 0.4 Mg Tab.Subl) 0.4 mg SUBLINGUAL Q5M PRN PRN Reason: chest pain Patient Own Med( Memantine [Namenda Xr] 21 Mg Capsule) 1 each PO DAILY COUNTS INCLUDE 234 BEDS AT THE [facility] Last Admin: 06/26/21 10:48 Dose: 1 each Documented by: Nystatin (Nystatin Powder 15 Gm Bottle) 1 appl TOPICAL BID COUNTS INCLUDE 234 BEDS AT THE [facility]; Protocol Last Admin: 06/26/21 10:49 Dose: 1 appl Documented by: Omeprazole (Omeprazole 20 Mg Capsule.Dr) 20 mg PO DAILY@0630 COUNTS INCLUDE 234 BEDS AT THE [facility] Last Admin: 06/26/21 04:39 Dose: 20 mg Documented by: Ondansetron HCl (Ondansetron Hcl 4 Mg/2 Ml Vial) 4 mg IVPUSH Q8H PRN PRN Reason: Nausea and Vomiting Pharmacy Consult (Consult Rx Vancomycin Dosing) 1 each MISCELLANE DAILY PRN PRN Reason: Consult order Pregabalin (Pregabalin 50 Mg Capsule) 50 mg PO TID COUNTS INCLUDE 234 BEDS AT THE [facility] Last Admin: 06/26/21 14:40 Dose: 50 mg Documented by: Rivastigmine Tartrate (Rivastigmine Tartrate 6 Mg Capsule) 6 mg PO BID COUNTS INCLUDE 234 BEDS AT THE [facility] Last Admin: 06/26/21 10:46 Dose: 6 mg Documented by: Sertraline HCl (Sertraline Hcl 100 Mg Tablet) 100 mg PO DAILY COUNTS INCLUDE 234 BEDS AT THE [facility] Last Admin: 06/26/21 10:47 Dose: 100 mg Documented by: Sodium Chloride (0.9 % Sodium Chloride Flush 3 Ml Syringe) 3 ml IVFLUSH QSHIFT COUNTS INCLUDE 234 BEDS AT THE [facility] Last Admin: 06/26/21 15:27 Dose: 3 ml Documented by: Tiotropium [place] (Tiotropium [place] 18 Mcg Cap.W.Dev) 1 puff INHALE RDAILY COUNTS INCLUDE 234 BEDS AT THE [facility] Last Admin: 06/26/21 08:37 Dose: Not Given Documented by: Vitamin D (Cholecalciferol (Vitamin D3) 25 Mcg Tablet) 50 mcg PO DAILY COUNTS INCLUDE 234 BEDS AT THE [facility] Last Admin: 06/26/21 10:46 Dose: 50 mcg Documented by: Home Medications Medication Instructions Recorded Confirmed Last Taken Type acetaminophen 650 mg tablet 650 mg PO Q4H PRN 03/05/20 06/21/21 Unknown History cholecalciferol (vitamin D3) 50 2,000 unit PO DAILY 03/05/20 06/21/21 03/04/20 History mcg (2,000 unit) capsule memantine 21 mg capsule 21 mg PO DAILY 03/05/20 06/21/21 03/04/20 History sprinkle,extended release 24hr (Namenda XR) albuterol sulfate 90 mcg/actuation 2 puff INHALATION Q6H PRN g 04/06/20 06/21/21 Unknown History aerosol inhaler (ProAir HFA) meclizine 12.5 mg tablet 25 mg PO NEEDED 05/19/20 06/21/21 Unknown History umeclidinium 62.5 mcg/actuation 1 inh INHALATION BEDTIME 06/10/20 06/21/21 Unknown History blister powder for inhalation (Incruse Ellipta) nystatin 100,000 unit/gram topical 1 appl TOPICAL BID 05/08/21 06/21/21 Unknown History powder rivastigmine tartrate 6 mg capsule 6 mg PO BID 05/12/21 06/21/21 Unknown History isosorbide mononitrate 60 mg 1 tab PO DAILY 06/21/21 06/21/21 Unknown History tablet,extended release 24 hr Physical Exam Vital Signs: Vital Signs: Last Vital Signs Temp 99.0 F 06/26/21 15:23 Pulse 64 06/26/21 15:23 Resp 20 06/26/21 15:23 BP 140/63 H 06/26/21 15:23 Pulse Ox 90 L 06/26/21 15:23 BMI result Body Mass Index 31.6 GENERAL APPEARANCE: Ill-appearing, on supplemental oxygen NECK: no carotid bruit, no jugular venous distention. SKIN: no suspicious lesions, warm and dry. HEART: no murmurs, regular rate and rhythm. LUNGS: Crackles at bases. ABDOMEN: soft, nontender. EXTREMITIES: no edema. PERIPHERAL PULSES: equal. NEUROLOGIC: No gross deficits, AAO X 3 Objective Labs and Meds Result diagrams: 06/25/21 09:25 06/26/21 06:18 Lab results: Laboratory Results - last 24 hr 06/26/21 06:18 Sodium 142 Potassium 4.3 Chloride 112 H Carbon Dioxide 23 Anion Gap 11 L BUN 28 H Creatinine 2.07 H Estim Creat Clear Calc 19.1 Estimated GFR 23 Random Glucose 93 Calcium 8.7 Imaging Radiologist's impression: Impressions Guidance Ultrasound 06/26/21 10:08 IMPRESSION: 1. Successful ultrasound and fluoroscopy-guided placement of a tunneled Rob catheter via right jugular vein. The catheter tip is in SVC ready for use. 2. Fluoroscopy time: 1.2 minutes. 3. Dose area product: 255 cGy/cm2 Insertion Tunneled Catheter 06/26/21 10:08 IMPRESSION: 1. Successful ultrasound and fluoroscopy-guided placement of a tunneled Rob catheter via right jugular vein. The catheter tip is in SVC ready for use. 2. Fluoroscopy time: 1.2 minutes. 3. Dose area product: 255 cGy/cm2 Assessment and Plan (1) Chest pain: Status: Acute 80-year-old female who is admitted with mechanical fall and hematoma the occipital region. She has been taken off the Eliquis. Her high sensitivity troponin levels were mildly elevated. She also complained of chest pain 2 days ago. On discussing with her she does not remember having any chest pain. Also chest pain-free at this point. She has CKD, bacteremia and anemia to explain the mild troponin leak. I think this is a type 2 injury. I do not think she needs further workup for this. She has a bioprosthetic valve in the aortic position. She had MRSA bacteremia. We need to make sure that her bacteremia is clearing because there is Risperdal supervisor waterproofing. Thank you for allowing me to participate in the care of your patient. Please feel free to contact me if you have any questions. Procedures Date of Service Date of Service: 06/26/21
[2021-06-26 19:09] VITALS: BP 160/72; PULSE 67; RESP 20; TEMP 37.4; O2SAT 96
[2021-06-26 23:22] VITALS: BP 121/59; PULSE 63; RESP 20; TEMP 36.1; O2SAT 97
[2021-06-27] VITALS (8 sets, daily range): BP systolic 101–139; BP diastolic 51–90; PULSE 57–72; RESP 18–20; TEMP 36–36.8; O2SAT 94–100
--- NOTE | 2021-06-27 | ECG_ITS ---
Test Reason : increased troponin Blood Pressure : / mmHG Vent. Rate : 067 BPM Atrial Rate : 067 BPM P-R Int : 146 ms QRS Dur : 120 ms QT Int : 430 ms P-R-T Axes : 000 -22 118 degrees QTc Int : 454 ms Normal sinus rhythm Minimal voltage criteria for LVH, may be normal variant ( [place] product ) Inferior infarct , age undetermined Anterolateral infarct (cited on or before 24-JUN-2014) Abnormal ECG When compared with ECG of 25-JUN-2021 04:55, MI interval has decreased Serial changes of Anterior infarct Present Referred By: Stephanie Hills Electronically Signed By:Kenn Gamez
[2021-06-27] MEDS: 0.9 % Sodium Chloride Flush 3 ML SYRINGE IVFLUSH ×4 (00:16→19:58)
--- NOTE | 2021-06-27 05:45 | MHC.PIE ---
P.DUSKY,SATS 70'S ON 2L I.PT MOANING ,UPON ENTERING ROOM,NOTED TO BE DUSKY AND SOB,SATS 70'S ON O2 AT 2L,PLACED ON NRB,BP 113/60,HR 70'S,SR WITH 1 DEGREE AVBLOCK.PT STATING PAIN TO HEAD AND BACK,ALSO STATING SHE IS NAUSEOUS.RAPID RESPONSE CALLED.PT REMAINS DUSKY.NRB WITH SAT TO 100%.SL IMPROVEMENT TO COLOR.MED WITH MS 1MG IV PER MD ORDER.ALSO GIVEN ZOFRAN 4MG IV FOR NAUSEA.STAT LABS,TROPONIN,EKG AND CXR DONE.MD ORDERED HEAD CT BUT PATIENT UNABLE TO TOLERATE LYING FLAT AT THIS TIME.MD UPDATED AND STATES OK TO DO WHEN POSSIBLE.?ADDING D DIMER TO LABS.MD STATES TO WAIT FOR OTHER BLOOD WORK E.RESTING QUIETLY BUT STILL C/O SL NAUSEA AND STATING SHE DOESN'T FEEL GOOD O2 NOW AT 5L N/C,SAT 93%.REPORTED TO NEXT SHIFT.CONT TO MONITOR.
--- NOTE | 2021-06-27 05:51 | PM.EVENT ---
Event Note Date of Service: 06/27/21 Event Note: rapid response note: Around 5:50 a.m. rapid response was called mention patient was not feeling well and became hypoxic; patient was on 2 L of supplemental oxygen prior to that. Patient was placed on non-rebreather when I entered the room. Saturating 100%. Breathing comfortably. Speaking in full sentences. Following commands. Upon asking patient mentioned that she has pain all over the body. Denies any chest pain per se. Denies any abdominal pain. Patient follows commands. Moves all extremities equally. Ordered stat CBC, BMP, troponin, EKG, chest x-ray, CT head. EKG non ischemic; Labs and CT pending; will signout to day hospitalist.
[2021-06-27] MEDS: Morphine Sulfate 2 MG/ML CARTRIDGE 1 MG IVPUSH (06:07)
[2021-06-27] MEDS: ondansetron HCL 4 MG/2 ML VIAL IVPUSH (06:08)
[2021-06-27 06:45] LABS: MANUAL DIFF FLAG NO
[2021-06-27 07:02] LABS: Basophils Percent Auto 0.3 % (0-2); Eosinophils Percent Auto 0.1 % (0-4); Hematocrit 29.8 % (37.0-47.0); Hemoglobin 8.8 g/dl (12.0-16.0); Imm Gran Abs Auto 0.23 X10*3/uL (0.00-0.03); Imm Gran Pct Auto 1.7 % (0.0-0.4); Lymphocytes Absolute Auto 0.5 X10*3/uL (1.2-4.9); Lymphocytes Percent Auto 3.4 % (20-40); Mean Corpuscular HGB Conc 29.5 g/dl (31.0-35.0); Mean Corpuscular Hemoglobin 29.5 pg (27.0-33.0); Mean Platelet Volume 11.9 fL (9.4-12.3); Monocytes Absolute Auto 1.2 X10*3/uL (0.1-1.2); Monocytes Percent Auto 8.5 % (2-11); Neutrophils Absolute Auto 11.6 x10*3/uL (2.0-8.3); Platelet Count 120 X10*3/uL (160-400); Red Blood Count 2.98 X10*6/uL (4.20-5.50); Red Cell Distribution Width 14.6 % (11.0-16.0); White Blood Count 13.5 X10*3/uL (4.8-10.8)
[2021-06-27 07:03] LABS: Anion Gap 12 (12-20); Blood Urea Nitrogen 29 mg/dL (9-16); Calcium 8.9 mg/dL (8.4-10.2); Carbon Dioxide 25 mmol/L (22-29); Chloride 110 mmol/L (96-108); Creatinine Clr Calc Pharmacy 17.4; Estimated Glomerular Filt Rate 21; Glucose Random 143 mg/dL (60-115); Potassium 4.1 mmol/L (3.3-5.1); Sodium 143 mmol/L (135-145)
[2021-06-27 07:04] LABS: Creatinine Clr Calc Pharmacy 17.2; Estimated Glomerular Filt Rate 20
[2021-06-27 07:35] LABS: Troponin-I High Sensitivity 85.9 ng/L (<3.5-17.0)
--- NOTE | 2021-06-27 07:42 | HE.PHANOTE ---
Vancomycin Addendum Trough drawn 06/26 @ 1809 was drawn while vancomycin was running per documentation. Vancomycin started at 1752. SCr increase from yesterday 2.07 to 2.31 today. Will drawn a random level prior 06/27 @ 1600 to next dose to get a more accurate level. Delfina Brown, PharmD
[2021-06-27] MEDS: Cholecalciferol (Vitamin D3) 25 MCG TABLET 50 MCG PO (09:25)
[2021-06-27] MEDS: Amiodarone HCL 200 MG TABLET PO (09:25)
[2021-06-27] MEDS: amLODIPine Besylate 10 MG TABLET PO (09:26)
[2021-06-27] MEDS: hydrALAZINE HCl 50 MG TABLET 100 MG PO (09:26)
[2021-06-27] MEDS: Isosorbide Mononitrate 60 MG TAB.ER.24H PO (09:26)
[2021-06-27] MEDS: Atorvastatin Calcium 20 MG TABLET PO (09:26)
[2021-06-27] MEDS: Ferrous Sulfate 324 MG TABLET.DR PO (09:26)
[2021-06-27] MEDS: Pregabalin 50 MG CAPSULE PO ×3 (09:26→19:58)
[2021-06-27] MEDS: Sertraline HCL 100 MG TABLET PO (09:26)
[2021-06-27] MEDS: calcitrioL 0.25 MCG CAPSULE PO (09:29)
[2021-06-27] MEDS: Nystatin Powder 15 GM BOTTLE 1 APPL TOPICAL ×2 (09:40→19:58)
[2021-06-27 10:17] LABS: Troponin-I High Sensitivity 183.2 ng/L (<3.5-17.0)
--- NOTE | 2021-06-27 10:33 | P.PNIM_ITS ---
Subjective Subjective Date of Service: 06/27/21 Review of Systems Follow-up for COVID, bacteremia Denies shortness of breath, cough Physical Exam Verdana 4l Vital Signs: Verdana 4d Verdana 4d Vital Signs: Verdana 4d Verdana 4Bd Last Vital Signs Verdana 4d [employer] New 4d [employer] Architect New 4d Temp 97.5 F 06/27/21 07:45 [employer] Architect New 4d Pulse 65 06/27/21 07:45 [employer] Architect NewNew 4d Resp 18 06/27/21 07:45 BP 119/54 L 06/27/21 07:45 Pulse Ox 94 06/27/21 07:45 BMI result Body Mass Index 31.6 Appearing in no acute distress lung sounds are clear to auscultation heart regular rate rhythm, clear S1, S2 positive bowel sounds, abdomen is soft, nontender neuro patient is alert x3, no focal deficits Objective Data Active Medications Acetaminophen (Acetaminophen 325 Mg Tablet) 650 mg PO Q6H PRN PRN Reason: Pain, Mild (Pain Scale 1-3) Last Admin: 06/25/21 21:40 Dose: 650 mg Documented by: PRATIMA Albuterol Sulfate (Albuterol Sulfate 90 Mcg 8 Gm Inhaler) 2 puff INHALE Q6H PRN PRN Reason: Wheezing Amiodarone HCl (Amiodarone Hcl 200 Mg Tablet) 200 mg PO DAILY [facility] Last Admin: 06/27/21 09:25 Dose: 200 mg Documented by: CAIT Amlodipine Besylate (Amlodipine Besylate 10 Mg Tablet) 10 mg PO DAILY [facility]; Protocol Last Admin: 06/27/21 09:26 Dose: 10 mg Documented by: CAIT Atorvastatin Calcium (Atorvastatin Calcium 20 Mg Tablet) 20 mg PO DAILY [facility] Last Admin: 06/27/21 09:26 Dose: 20 mg Documented by: CAIT Calcitriol (Calcitriol 0.25 Mcg Capsule) 0.25 mcg PO Q2D [facility] Last Admin: 06/27/21 09:29 Dose: 0.25 mcg Documented by: CAIT Docusate Sodium (Docusate Sodium 100 Mg Capsule) 100 mg PO DAILY PRN PRN Reason: Constipation Ferrous Sulfate (Ferrous Sulfate 324 Mg Tablet.) 324 mg PO DAILY [facility] Last Admin: 06/27/21 09:26 Dose: 324 mg Documented by: CAIT Hydralazine HCl (Hydralazine Hcl 50 Mg Tablet) 100 mg PO BID [facility]; Protocol Last Admin: 06/27/21 09:26 Dose: 100 mg Documented by: CAIT Vancomycin HCl 500 mg/ Sodium (Chloride) 110 mls @ 110 mls/hr IV Q24H [facility] Last Infusion: 06/26/21 20:21 Dose: 0 mls/hr Documented by: YASMIN Isosorbide Mononitrate (Isosorbide Mononitrate 60 Mg Tab.Er.24h) 60 mg PO DAILY [facility]; Protocol Last Admin: 06/27/21 09:26 Dose: 60 mg Documented by: CAIT Meclizine HCl (Meclizine Hcl 25 Mg Tablet) 25 mg PO DAILY PRN PRN Reason: Vertigo Nitroglycerin (Nitroglycerin 0.4 Mg Tab.Subl) 0.4 mg SUBLINGUAL Q5M PRN PRN Reason: chest pain Patient Own Med( Memantine [Namenda Xr] 21 Mg Capsule) 1 each PO DAILY [facility] Last Admin: 06/27/21 09:26 Dose: 1 each Documented by: CAIT Nystatin (Nystatin Powder 15 Gm Bottle) 1 appl TOPICAL BID [facility]; Protocol Last Admin: 06/27/21 09:40 Dose: 1 appl Documented by: CAIT Omeprazole (Omeprazole 20 Mg Capsule.Dr) 20 mg PO DAILY@0630 [facility] Last Admin: 06/27/21 05:33 Dose: Not Given Documented by: GIOVANNI Non-Admin Reason: unable Ondansetron HCl (Ondansetron Hcl 4 Mg/2 Ml Vial) 4 mg IVPUSH Q8H PRN PRN Reason: Nausea and Vomiting Last Admin: 06/27/21 06:08 Dose: 4 mg Documented by: GIOVANNI Pharmacy Consult (Consult Rx Vancomycin Dosing) 1 each MISCELLANE DAILY PRN PRN Reason: Consult order Pregabalin (Pregabalin 50 Mg Capsule) 50 mg PO TID [facility] Last Admin: 06/27/21 09:26 Dose: 50 mg Documented by: CAIT Rivastigmine Tartrate (Rivastigmine Tartrate 6 Mg Capsule) 6 mg PO BID [facility] Last Admin: 06/27/21 09:25 Dose: 6 mg Documented by: CAIT Sertraline HCl (Sertraline Hcl 100 Mg Tablet) 100 mg PO DAILY [facility] Last Admin: 06/27/21 09:26 Dose: 100 mg Documented by: CAIT Sodium Chloride (0.9 % Sodium Chloride Flush 3 Ml Syringe) 3 ml IVFLUSH QSHIFT [facility] Last Admin: 06/27/21 09:26 Dose: 3 ml Documented by: CAIT Tiotropium [place] (Tiotropium [place] 18 Mcg Cap.W.Dev) 1 puff INHALE RDAILY [facility] Last Admin: 06/27/21 07:43 Dose: 1 puff Documented by: HUA Vitamin D (Cholecalciferol (Vitamin D3) 25 Mcg Tablet) 50 mcg PO DAILY [facility] Last Admin: 06/27/21 09:25 Dose: 50 mcg Documented by: CAIT Labs CBC & Chem 7: 06/27/21 06:36 06/27/21 06:36 Labs: Laboratory Results - last 24 hr 06/26/21 06/27/21 06/27/21 18:09 06:36 06:36 MCV 100.0 H MCH 29.5 MCHC 29.5 L RDW 14.6 Plt Count 120 L MPV 11.9 Immature Gran % (Auto) 1.7 H Neut % (Auto) 86.0 H Lymph % (Auto) 3.4 L [place] % (Auto) 8.5 Eos % (Auto) 0.1 Baso % (Auto) 0.3 Lymph # (Auto) 0.5 L [place] # (Auto) 1.2 Eos # (Auto) 0.0 Baso # (Auto) 0.0 Abs Immat Gran (auto) 0.23 H Absolute Neuts (auto) 11.6 H Absolute Nucleated RBC 0.000 Nucleated RBC % (auto) 0.0 Anion Gap Estim Creat Clear Calc 17.2 Estimated GFR 20 Random Glucose Calcium Troponin I High Sens Vancomycin Trough 15.0 06/27/21 06/27/21 06/27/21 06:36 06:36 09:25 MCV MCH MCHC RDW Plt Count MPV Immature Gran % (Auto) Neut % (Auto) Lymph % (Auto) [place] % (Auto) Eos % (Auto) Baso % (Auto) Lymph # (Auto) [place] # (Auto) Eos # (Auto) Baso # (Auto) Abs Immat Gran (auto) Absolute Neuts (auto) Absolute Nucleated RBC Nucleated RBC % (auto) Anion Gap 12 Estim Creat Clear Calc 17.4 Estimated GFR 21 Random Glucose 143 H Calcium 8.9 Troponin I High Sens 85.9 H* 183.2 H* D Vancomycin Trough Assessment and Plan (1) MRSA bacteremia: Status: Acute Assessment and Plan: 80-year-old female with past medical history significant for AFib on Eliquis, CHF who presents to the hospital with bleeding from a laceration her head found to have a large hematoma. Acute hypoxic respiratory failure possibly secondary to heart failure and COVID Rapid response called this morning Oxygen saturation improved with supplemental oxygen Chest x-ray showing increased perihilar opacities Discussed with cardiology will add IV Lasix for diuresis, follow BNP Brain CT pending MRSA bacteremia BCx from 06/20/2021 1/2 culture positive for MRSA, repeat BCx negative x 48 hours unclear source echo Showed EF of 60-65% with no regional wall motion abnormalities will need 4 weeks IV abx on discharge per ID tuttle placed 06/26 chest pain episode of chest pain, no recurrence ekg similar to previous trops elevated but flat db on ckd stage 4:? Scr down to 2.07 nephro following follow BMP Acute blood loss anemia secondary to hematoma s/p 2 units of PRBC-h/h 9 stool occult blood negative H/H stable Eliquis on hold hematoma of the head patient had a mechanical fall 3 weeks [employer], now has CT showing large central and right occipital hematoma with laceration and nondisplaced left occipital fracture consult General surgery-Recommend observation of the hematoma off anticoagulation COVID positive no hypoxia. positive 2 weeks ago but continues to have cough monitor respiratory status CHF not in exacerbation and not on a diuretic AFib continue amiodarone hold apixaban given hematoma/anemia, likely hold for 14 days asymptomatic bacteriuria/pyuria:? ceftriaxone stopped. UCx growing klebsiella discussed with ID, no need for tr eatment, pt asymptomatic HTN continue hydralazine, norvasc nocturnal? hypoxia 2L o2 at night dvt ppx -mechanical devices; eliquis on hold for occipital fracture/hematoma code status - full code attending Dr. Torres dispo - seen by PT rec home with services with medically ready Quality Stroke Does the patient have a stroke diagnosis?: No VTE Prior VTE?: No VTE Risk Level:: Medical - moderate - high VTE Device Contraindication: N/A - Device Ordered VTE Drug Contraindication: N/A - Med Ordered
[2021-06-27 11:11] LABS: B Type Natriuretic Peptide 367 pg/mL (<100)
[2021-06-27] MEDS: Furosemide 20 MG/2 ML VIAL IVPUSH ×2 (11:42→17:39)
--- NOTE | 2021-06-27 11:42 | P.PNCA_ITS ---
Subjective Subjective Date of Service: 06/27/21 Interval history: She had hypoxia overnight. CXR showing ?CHF. Troponin mildly elevated. COVID +. MRSA bacteremia but cultures negative x 48 hours. Physical Exam Vital Signs: Last Vital Signs Temp 97.5 F 06/27/21 07:45 Pulse 79 06/27/21 11:06 Resp 18 06/27/21 11:06 BP 119/57 L 06/27/21 11:06 Pulse Ox 96 06/27/21 11:06 BMI result Body Mass Index 31.6 GENERAL APPEARANCE:? Ill-appearing, on supplemental oxygen NECK: no carotid bruit, no jugular venous distention. SKIN: no suspicious lesions, warm and dry. HEART: no murmurs, regular rate and rhythm. LUNGS:? Crackles at bases. ABDOMEN: soft, nontender. EXTREMITIES: no edema. PERIPHERAL PULSES: equal. NEUROLOGIC: No gross deficits, AAO X 3 Objective Labs and Meds Result diagrams: 06/27/21 06:36 06/27/21 06:36 Lab results: Laboratory Results - last 24 hr 06/26/21 06/27/21 06/27/21 18:09 06:36 06:36 WBC 13.5 H RBC 2.98 L Hgb 8.8 L Hct 29.8 L MCV 100.0 H MCH 29.5 MCHC 29.5 L RDW 14.6 Plt Count 120 L MPV 11.9 Immature Gran % (Auto) 1.7 H Neut % (Auto) 86.0 H Lymph % (Auto) 3.4 L [place] % (Auto) 8.5 Eos % (Auto) 0.1 Baso % (Auto) 0.3 Lymph # (Auto) 0.5 L [place] # (Auto) 1.2 Eos # (Auto) 0.0 Baso # (Auto) 0.0 Abs Immat Gran (auto) 0.23 H Absolute Neuts (auto) 11.6 H Absolute Nucleated RBC 0.000 Nucleated RBC % (auto) 0.0 Sodium Potassium Chloride Carbon Dioxide Anion Gap BUN Creatinine 2.31 H Estim Creat Clear Calc 17.2 Estimated GFR 20 Random Glucose Calcium Troponin I High Sens B-Natriuretic Peptide Vancomycin Trough 15.0 06/27/21 06/27/21 06/27/21 06:36 06:36 09:25 WBC RBC Hgb Hct MCV MCH MCHC RDW Plt Count MPV Immature Gran % (Auto) Neut % (Auto) Lymph % (Auto) [place] % (Auto) Eos % (Auto) Baso % (Auto) Lymph # (Auto) [place] # (Auto) Eos # (Auto) Baso # (Auto) Abs Immat Gran (auto) Absolute Neuts (auto) Absolute Nucleated RBC Nucleated RBC % (auto) Sodium 143 Potassium 4.1 Chloride 110 H Carbon Dioxide 25 Anion Gap 12 BUN 29 H Creatinine 2.28 H Estim Creat Clear Calc 17.4 Estimated GFR 21 Random Glucose 143 H Calcium 8.9 Troponin I High Sens 85.9 H* 183.2 H* D B-Natriuretic Peptide 367 H Vancomycin Trough Imaging Radiologist's impression: Impressions Guidance Ultrasound 06/26/21 10:08 IMPRESSION: 1. Successful ultrasound and fluoroscopy-guided placement of a tunneled Rob catheter via right jugular vein. The catheter tip is in SVC ready for use. 2. Fluoroscopy time: 1.2 minutes. 3. Dose area product: 255 cGy/cm2 Insertion Tunneled Catheter 06/26/21 10:08 IMPRESSION: 1. Successful ultrasound and fluoroscopy-guided placement of a tunneled Rob catheter via right jugular vein. The catheter tip is in SVC ready for use. 2. Fluoroscopy time: 1.2 minutes. 3. Dose area product: 255 cGy/cm2 Chest X-Ray 06/27/21 06:43 IMPRESSION: Increased perihilar opacities could be associated with edema or infectious/inflammatory process. Progress Note: A&P Assessment and plan (1) MRSA bacteremia: Status: Acute (2) Acute blood loss anemia: Status: Acute (3) Hypoxia: Status: Acute Assessment and Plan: 80 female with COVID, MRSA bacteremia and anemia. She has + troponin. Type II OK. Give 1 dose of Lasix. Incentive spirometry. On Abx. MRSA bacteremia has cleared. Fall Risk Details Current Medications: Current Medications Acetaminophen (Acetaminophen 325 Mg Tablet) 650 mg PO Q6H PRN PRN Reason: Pain, Mild (Pain Scale 1-3) Last Admin: 06/25/21 21:40 Dose: 650 mg Documented by: Albuterol Sulfate (Albuterol Sulfate 90 Mcg 8 Gm Inhaler) 2 puff INHALE Q6H PRN PRN Reason: Wheezing Amiodarone HCl (Amiodarone Hcl 200 Mg Tablet) 200 mg PO DAILY [facility] Last Admin: 06/27/21 09:25 Dose: 200 mg Documented by: Amlodipine Besylate (Amlodipine Besylate 10 Mg Tablet) 10 mg PO DAILY [facility] 234 BEDS AT THE [facility]; Protocol Last Admin: 06/27/21 09:26 Dose: 10 mg Documented by: Atorvastatin Calcium (Atorvastatin Calcium 20 Mg Tablet) 20 mg PO DAILY [facility] 234 BEDS AT THE [facility] Last Admin: 06/27/21 09:26 Dose: 20 mg Documented by: Calcitriol (Calcitriol 0.25 Mcg Capsule) 0.25 mcg PO Q2D [facility]S [facility]CLUDE 234 BEDS AT THE [facility] Last Admin: 06/27/21 09:29 Dose: 0.25 mcg Documented by: Docusate Sodium (Docusate Sodium 100 Mg Capsule) 100 mg PO DAILY PRN PRN Reason: Constipation Ferrous Sulfate (Ferrous Sulfate 324 Mg Tablet.) 324 mg PO DAILY [facility] 234 BEDS AT THE [facility] Last Admin: 06/27/21 09:26 Dose: 324 mg Documented by: Hydralazine HCl (Hydralazine Hcl 50 Mg Tablet) 100 mg PO BID [facility]CLUDE 234 BEDS AT THE [facility]; Protocol Last Admin: 06/27/21 09:26 Dose: 100 mg Documented by: Vancomycin HCl 500 mg/ Sodium (Chloride) 110 mls @ 110 mls/hr IV Q24H [facility]CLUDE 234 BEDS AT THE [facility] Last Infusion: 06/26/21 20:21 Dose: Infused Documented by: Isosorbide Mononitrate (Isosorbide Mononitrate 60 Mg Tab.Er.24h) 60 mg PO DAILY [facility]CLUDE 234 BEDS AT THE [facility]; Protocol Last Admin: 06/27/21 09:26 Dose: 60 mg Documented by: Meclizine HCl (Meclizine Hcl 25 Mg Tablet) 25 mg PO DAILY PRN PRN Reason: Vertigo Nitroglycerin (Nitroglycerin 0.4 Mg Tab.Subl) 0.4 mg SUBLINGUAL Q5M PRN PRN Reason: chest pain Patient Own Med( Memantine [Namenda Xr] 21 Mg Capsule) 1 each PO DAILY [facility] 234 BEDS AT [facility] Last Admin: 06/27/21 09:26 Dose: 1 each Documented by: Nystatin (Nystatin Powder 15 Gm Bottle) 1 appl TOPICAL BID [facility]CLUDE 234 BEDS AT THE [facility]; Protocol Last Admin: 06/27/21 09:40 Dose: 1 appl Documented by: Omeprazole (Omeprazole 20 Mg Capsule.) 20 mg PO DAILY@0630 [facility]CLUDE 234 BEDS AT THE [facility] Last Admin: 06/27/21 05:33 Dose: Not Given Documented by: Ondansetron HCl (Ondansetron Hcl 4 Mg/2 Ml Vial) 4 mg IVPUSH Q8H PRN PRN Reason: Nausea and Vomiting Last Admin: 06/27/21 06:08 Dose: 4 mg Documented by: Pharmacy Consult (Consult Rx Vancomycin Dosing) 1 each MISCELLANE DAILY PRN PRN Reason: Consult order Pregabalin (Pregabalin 50 Mg Capsule) 50 mg PO TID [facility] 234 BEDS AT THE [facility] Last Admin: 06/27/21 09:26 Dose: 50 mg Documented by: Rivastigmine Tartrate (Rivastigmine Tartrate 6 Mg Capsule) 6 mg PO BID [facility] 234 BEDS AT THE [facility] Last Admin: 06/27/21 09:25 Dose: 6 mg Documented by: Sertraline HCl (Sertraline Hcl 100 Mg Tablet) 100 mg PO DAILY [facility]CLUDE 234 BEDS AT THE [facility] Last Admin: 06/27/21 09:26 Dose: 100 mg Documented by: Sodium Chloride (0.9 % Sodium Chloride Flush 3 Ml Syringe) 3 ml IVFLUSH QSHIFT [facility]S [facility]CLUDE 234 BEDS AT THE [facility] Last Admin: 06/27/21 09:26 Dose: 3 ml Documented by: Tiotropium [place] (Tiotropium [place] 18 Mcg Cap.W.Dev) 1 puff INHALE RDAILY [facility]CLUDE 234 BEDS AT THE [facility] Last Admin: 06/27/21 07:43 Dose: 1 puff Documented by: Vitamin D (Cholecalciferol (Vitamin D3) 25 Mcg Tablet) 50 mcg PO DAILY [facility]CLUDE 234 BEDS AT THE [facility] Last Admin: 06/27/21 09:25 Dose: 50 mcg Documented by: Time Spent With Patient Time: Total time spent is greater than 50% in coordination of care (as do cumented) at patient's floor/unit and/or counseling patient: Time with patient: 15 - 24 minutes Progress Note: Quality Stroke Does the patient have a stroke diagnosis?: No Procedures Date of Service Date of Service: 06/27/21
--- NOTE | 2021-06-27 13:36 | P.PNNP_ITS ---
Subjective Subjective Date of Service: 06/27/21 Principal diagnosis: LINDA Interval history: Seen and examined, events noted Physical Exam Vital Signs: Vital Signs: Last Vital Signs Temp 98.3 F 06/27/21 12:00 Pulse 72 06/27/21 12:00 Resp 18 06/27/21 12:00 BP 101/51 L 06/27/21 12:00 Pulse Ox 97 06/27/21 12:00 BMI result Body Mass Index 31.6 Const: General: cooperative, no acute distress and well developed Nutritional Appearance: well nourished Orientation/consciousness: patient oriented x3 Limitations: no limitations HENMT: Other: palpable hematoma and scalp wound with no active bleeding noted, minimal tenderness Eyes: General: appearance normal, both eyes and all related structures Pupils: Equal, round and reactive pupils present Resp: Effort & Inspection: normal respiratory effort Auscultation: clear to auscultation bilaterally Cardio: Rate: regular rate Rhythm: regular rhythm GI: Palpation (GI): Soft to palpation and nontender Auscultation: normal bowel sounds Skin: General skin exam: no rashes or lesions noted Neuro: General: patient oriented x3 Cranial nerves: Yes Equal, round and reactive pupils present Cognition (Neuro): normal cognition Extrem: General: Yes normal to inspection, Yes no clubbing, cyanosis or edema and Yes no pedal edema Objective Data Labs CBC & Chem 7: 06/27/21 06:36 06/27/21 06:36 Labs: Laboratory Results - last 24 hr 06/26/21 06/27/21 06/27/21 18:09 06:36 06:36 WBC 13.5 H RBC 2.98 L Hgb 8.8 L Hct 29.8 L MCV 100.0 H MCH 29.5 MCHC 29.5 L RDW 14.6 Plt Count 120 L MPV 11.9 Immature Gran % (Auto) 1.7 H Neut % (Auto) 86.0 H Lymph % (Auto) 3.4 L [place] % (Auto) 8.5 Eos % (Auto) 0.1 Baso % (Auto) 0.3 Lymph # (Auto) 0.5 L [place] # (Auto) 1.2 Eos # (Auto) 0.0 Baso # (Auto) 0.0 Abs Immat Gran (auto) 0.23 H Absolute Neuts (auto) 11.6 H Absolute Nucleated RBC 0.000 Nucleated RBC % (auto) 0.0 Sodium Potassium Chloride Carbon Dioxide Anion Gap BUN Creatinine 2.31 H Estim Creat Clear Calc 17.2 Estimated GFR 20 Random Glucose Calcium Troponin I High Sens B-Natriuretic Peptide Vancomycin Trough 15.0 06/27/21 06/27/21 06/27/21 06:36 06:36 09:25 WBC RBC Hgb Hct MCV MCH MCHC RDW Plt Count MPV Immature Gran % (Auto) Neut % (Auto) Lymph % (Auto) [place] % (Auto) Eos % (Auto) Baso % (Auto) Lymph # (Auto) [place] # (Auto) Eos # (Auto) Baso # (Auto) Abs Immat Gran (auto) Absolute Neuts (auto) Absolute Nucleated RBC Nucleated RBC % (auto) Sodium 143 Potassium 4.1 Chloride 110 H Carbon Dioxide 25 Anion Gap 12 BUN 29 H Creatinine 2.28 H Estim Creat Clear Calc 17.4 Estimated GFR 21 Random Glucose 143 H Calcium 8.9 Troponin I High Sens 85.9 H* 183.2 H* D B-Natriuretic Peptide 367 H Vancomycin Trough Microbiology Microbiology Results: Microbiology 06/20/21 11:28 Blood - Venous Blood Culture - Final No growth after 5 days. 06/23/21 09:58 Blood - Venous Blood Culture - Preliminary No growth after 48 hours. 06/23/21 09:58 Blood - Venous Blood Culture - Preliminary No growth after 48 hours. 06/22/21 Unknown Urine clean catch - Urine lutz top Urine Culture - Final Klebsiella pneumoniae 06/20/21 13:51 Blood - Venous Blood Culture - Final Methicillin Res Staph Aureus Procedures Date of Service Date of Service: 06/27/21 Assessment & Plan Assessment and plan (1) SARS-CoV-2 positive: Status: Acute (2) Hematoma: Status: Acute Assessment and Plan: 80-year-old female with past medical history significant for AFib on Eliquis, CHF, CKD 3 ( BSL SCr 1.5-1.8) who presents to the hospital with bleeding from a laceration her head found to have a large hematoma and LINDA on CKD and Staph bacteremia 1. LINDA: multifact ATN vs pre-renal; Sr now appears stuck at 2.3--? new BSL vs delayed recovery 2. CKD 3: BSL SCr 1.5-1.8 3. Vol status:looks good given h/o CHF 4. Staph bact MRSA and now on vanco; ques source 5. A.C: ques timing of r/s 6. Anemia: track and check Fe studies 7. Covid +: no evid of pulm covid at this time REC: cont to track renal func UOP, ; track vanco level and see if alt availbe given risk of vanco ATN rec tuttle instead of PIC lne if needs long course of ABX; will need outpt renal f/u ( I will arrange) will follow with team Time Spent With Patient Time: Total time spent is greater than 50% in coordination of care (as documented) at patient's floor/unit and/or counseling patient: Progress Note: Quality Stroke Does the patient have a stroke diagnosis?: No
[2021-06-27] MEDS: vancomycin HCL 500 MG in 0.9 % Sodium Chloride 100 ML 110 MG IV (17:39)
[2021-06-28] VITALS (9 sets, daily range): BP systolic 99–145; BP diastolic 56–69; PULSE 70–82; RESP 18–20; TEMP 36.7–37; O2SAT 93–100
[2021-06-28] MEDS: Omeprazole 20 MG CAPSULE.DR PO (05:38)
[2021-06-28 07:23] LABS: Creatinine Clr Calc Pharmacy 13.3; Estimated Glomerular Filt Rate 15
--- NOTE | 2021-06-28 07:46 | HE.PHANOTE ---
Vancomycin Addendum Patients has worsening kidney function. SCr increased from 2.28 to 2.97 in 24 hours. Per insight, patient should be in therapeutic ranges. Last vancomycin level was 15 on 06/27. A vanco level will be drawn prior to next dose to avoid toxicity as well as SCr to monitor renal function. Delfina Brown, ValeryD
[2021-06-28] MEDS: Furosemide 20 MG/2 ML VIAL IVPUSH (09:30)
[2021-06-28] MEDS: Cholecalciferol (Vitamin D3) 25 MCG TABLET 50 MCG PO (09:30)
[2021-06-28] MEDS: hydrALAZINE HCl 50 MG TABLET 100 MG PO ×2 (09:30→20:54)
[2021-06-28] MEDS: 0.9 % Sodium Chloride Flush 3 ML SYRINGE IVFLUSH ×3 (09:31→20:55)
[2021-06-28] MEDS: Atorvastatin Calcium 20 MG TABLET PO (09:31)
[2021-06-28] MEDS: Nystatin Powder 15 GM BOTTLE 1 APPL TOPICAL ×2 (09:32→20:55)
--- NOTE | 2021-06-28 10:57 | HO.PM.IMPN ---
Subjective Subjective Date of Service: 06/28/21 Review of Systems Follow up covid, aspiration pneumonia Sleepy today denied pain or breathing difficulties all other systems are reviewed and are negative Physical Exam Vital Signs: Vital Signs: Last Vital Signs Temp 98.6 F 06/28/21 07:40 Pulse 78 06/28/21 09:29 Resp 18 06/28/21 07:42 BP 114/57 L 06/28/21 09:29 Pulse Ox 95 06/28/21 09:29 BMI result Body Mass Index 31.6 Appearing in no acute distress lung sounds are clear to auscultation heart regular rate rhythm, clear S1, S2 positive bowel sounds, abdomen is soft, nontender neuro patient is alert, some confusion Objective Data Active Medications Acetaminophen (Acetaminophen 325 Mg Tablet) 650 mg PO Q6H PRN PRN Reason: Pain, Mild (Pain Scale 1-3) Last Admin: 06/25/21 21:40 Dose: 650 mg Documented by: PRATIMA Albuterol Sulfate (Albuterol Sulfate 90 Mcg 8 Gm Inhaler) 2 puff INHALE Q6H PRN PRN Reason: Wheezing Amiodarone HCl (Amiodarone Hcl 200 Mg Tablet) 200 mg PO DAILY [facility] Last Admin: 06/27/21 09:25 Dose: 200 mg Documented by: Amlodipine Besylate (Amlodipine Besylate 10 Mg Tablet) 10 mg PO DAILY [facility]; Protocol Last Admin: 06/27/21 09:26 Dose: 10 mg Documented by: Atorvastatin Calcium (Atorvastatin Calcium 20 Mg Tablet) 20 mg PO DAILY [facility] Last Admin: 06/28/21 09:31 Dose: 20 mg Documented by: CAIT Calcitriol (Calcitriol 0.25 Mcg Capsule) 0.25 mcg PO Q2D [facility] Last Admin: 06/27/21 09:29 Dose: 0.25 mcg Documented by: CAIT Docusate Sodium (Docusate Sodium 100 Mg Capsule) 100 mg PO DAILY PRN PRN Reason: Constipation Ferrous Sulfate (Ferrous Sulfate 324 Mg Tablet.) 324 mg PO DAILY [facility] Last Admin: 06/27/21 09:26 Dose: 324 mg Documented by: Furosemide (Furosemide 20 Mg/2 Ml Vial) 20 mg IVPUSH BID@0900,1800 [facility]; Protocol Last Admin: 06/28/21 09:30 Dose: 20 mg Documented by: CAIT Hydralazine HCl (Hydralazine Hcl 50 Mg Tablet) 100 mg PO BID [facility]; Protocol Last Admin: 06/28/21 09:30 Dose: 100 mg Documented by: CAIT Vancomycin HCl 500 mg/ Sodium (Chloride) 110 mls @ 110 mls/hr IV Q24H [facility] Last Infusion: 06/27/21 20:03 Dose: 0 mls/hr Documented by: ENDER Isosorbide Mononitrate (Isosorbide Mononitrate 60 Mg Tab.Er.24h) 60 mg PO DAILY [facility]; Protocol Last Admin: 06/27/21 09:26 Dose: 60 mg Documented by: Meclizine HCl (Meclizine Hcl 25 Mg Tablet) 25 mg PO DAILY PRN PRN Reason: Vertigo Nitroglycerin (Nitroglycerin 0.4 Mg Tab.Subl) 0.4 mg SUBLINGUAL Q5M PRN PRN Reason: chest pain Patient Own Med( Memantine [Namenda Xr] 21 Mg Capsule) 1 each PO DAILY [facility] Last Admin: 06/28/21 09:33 Dose: 1 each Documented by: CAIT Nystatin (Nystatin Powder 15 Gm Bottle) 1 appl TOPICAL BID [facility]; Protocol Last Admin: 06/28/21 09:32 Dose: 1 appl Documented by: CAIT Omeprazole (Omeprazole 20 Mg Capsule.Dr) 20 mg PO DAILY@0630 [facility] Last Admin: 06/28/21 05:38 Dose: 20 mg Documented by: ENDER Ondansetron HCl (Ondansetron Hcl 4 Mg/2 Ml Vial) 4 mg IVPUSH Q8H PRN PRN Reason: Nausea and Vomiting Last Admin: 06/27/21 06:08 Dose: 4 mg Documented by: GIOVANNI Pharmacy Consult (Consult Rx Vancomycin Dosing) 1 each MISCELLANE DAILY PRN PRN Reason: Consult order Pregabalin (Pregabalin 50 Mg Capsule) 50 mg PO TID [facility] Last Admin: 06/27/21 19:58 Dose: 50 mg Documented by: Rivastigmine Tartrate (Rivastigmine Tartrate 6 Mg Capsule) 6 mg PO BID [facility] Last Admin: 06/28/21 09:30 Dose: 6 mg Documented by: CAIT Sertraline HCl (Sertraline Hcl 100 Mg Tablet) 100 mg PO DAILY [facility] Last Admin: 06/27/21 09:26 Dose: 100 mg Documented by: Sodium Chloride (0.9 % Sodium Chloride Flush 3 Ml Syringe) 3 ml IVFLUSH QSHIFT [facility] Last Admin: 06/28/21 09:31 Dose: 3 ml Documented by: CAIT Tiotropium [place] (Tiotropium [place] 18 Mcg Cap.W.Dev) 1 puff INHALE RDAILY [facility] Last Admin: 06/28/21 07:40 Dose: 1 puff Documented by: KILO Vitamin D (Cholecalciferol (Vitamin D3) 25 Mcg Tablet) 50 mcg PO DAILY [facility] Last Admin: 06/28/21 09:30 Dose: 50 mcg Documented by: CAIT Labs CBC & Chem 7: 06/27/21 06:36 06/28/21 06:33 Labs: Laboratory Results - last 24 hr 06/27/21 06/27/21 06/28/21 09:25 16:20 06:33 Estim Creat Clear Calc 13.3 Estimated GFR 15 B-Natriuretic Peptide 367 H Random Vancomycin 15.0 Assessment and Plan (1) Aspiration pneumonia: Status: Acute Assessment and Plan: 80-year-old female with past medical history significant for AFib on Eliquis, CHF who presents to the hospital with bleeding from a laceration her head found to have a large hematoma. Acute hypoxic respiratory failure possibly secondary to heart failure and COVID and possible aspiration pneumonia Oxygen saturation improved with supplemental oxygen, desats quickly on room air even at rest Chest x-ray showing increased perihilar opacities Discussed with cardiology will add IV Lasix for diuresis, follow BNP Brain CT negative for acute abnormality Will add meropenem (PCN allergy) for aspiration MRSA bacteremia BCx from 06/20/2021 1/2 culture positive for MRSA, repeat BCx negative x 48 hours unclear source echo Showed EF of 60-65% with no regional wall motion abnormalities will need 4 weeks IV abx on discharge per ID tuttle placed 06/26 chest pain episode of chest pain, no recurrence ekg similar to previous trops elevated but flat db on ckd stage 4:? Scr down to 2.07 nephro following follow BMP Acute blood loss anemia secondary to hematoma s/p 2 units of PRBC-h/h 9 stool occult blood negative H/H stable Eliquis on hold hematoma of the head patient had a mechanical fall 3 weeks [employer], now has CT showing large central and right occipital hematoma with laceration and nondisplaced left occipital fracture consult General surgery-Recommend observation of the hematoma off anticoagulation COVID positive no hypoxia. positive 2 weeks ago but continues to have cough monitor respiratory status CHF not in exacerbation and not on a diuretic AFib continue amiodarone hold apixaban given hematoma/anemia, likely hold for 14 days asymptomatic bacteriuria/pyuria:? ceftriaxone stopped. UCx growing klebsiella discussed with ID, no need for treatment, pt asymptomatic HTN continue hydralazine, norvasc nocturnal? hypoxia 2L o2 at night dvt ppx -mechanical devices; eliquis on hold for occipital fracture/hematoma code status - full code attending Dr. Mckinney dispo - seen by PT rec home with services with medically ready Quality Stroke Does the patient have a stroke diagnosis?: No VTE Prior VTE?: No VTE Risk Level:: Medical - moderate - high VTE Device Contraindication: N/A - Device Ordered VTE Drug Contraindication: N/A - Med Ordered
--- NOTE | 2021-06-28 11:11 | P.PNIM_ITS ---
Subjective Subjective Date of Service: 06/28/21 Physical Exam Vital Signs: Vital Signs: Last Vital Signs Temp 98.6 F 06/28/21 07:40 Pulse 78 06/28/21 09:29 Resp 18 06/28/21 07:42 BP 114/57 L 06/28/21 09:29 Pulse Ox 95 06/28/21 09:29 BMI result Body Mass Index 31.6 Objective Data Active Medications Acetaminophen (Acetaminophen 325 Mg Tablet) 650 mg PO Q6H PRN PRN Reason: Pain, Mild (Pain Scale 1-3) Last Admin: 06/25/21 21:40 Dose: 650 mg Documented by: PRATIMA Albuterol Sulfate (Albuterol Sulfate 90 Mcg 8 Gm Inhaler) 2 puff INHALE Q6H PRN PRN Reason: Wheezing Amiodarone HCl (Amiodarone Hcl 200 Mg Tablet) 200 mg PO DAILY [facility] Last Admin: 06/27/21 09:25 Dose: 200 mg Documented by: Amlodipine Besylate (Amlodipine Besylate 10 Mg Tablet) 10 mg PO DAILY [facility]; Pr otocol Last Admin: 06/27/21 09:26 Dose: 10 mg Documented by: Atorvastatin Calcium (Atorvastatin Calcium 20 Mg Tablet) 20 mg PO DAILY [facility] Last Admin: 06/28/21 09:31 Dose: 20 mg Documented by: CAIT Calcitriol (Calcitriol 0.25 Mcg Capsule) 0.25 mcg PO Q2D [facility] Last Admin: 06/27/21 09:29 Dose: 0.25 mcg Documented by: CAIT Docusate Sodium (Docusate Sodium 100 Mg Capsule) 100 mg PO DAILY PRN PRN Reason: Constipation Ferrous Sulfate (Ferrous Sulfate 324 Mg Tablet.Dr) 324 mg PO DAILY [facility] Last Admin: 06/27/21 09:26 Dose: 324 mg Documented by: Furosemide (Furosemide 20 Mg/2 Ml Vial) 20 mg IVPUSH BID@0900,1800 [facility]; Pr otocol Last Admin: 06/28/21 09:30 Dose: 20 mg Documented by: CAIT Hydralazine HCl (Hydralazine Hcl 50 Mg Tablet) 100 mg PO BID [facility]; Protocol Last Admin: 06/28/21 09:30 Dose: 100 mg Documented by: CAIT Vancomycin HCl 500 mg/ Sodium (Chloride) 110 mls @ 110 mls/hr IV Q24H [facility] Last Infusion: 06/27/21 20:03 Dose: 0 mls/hr Documented by: ENDER Meropenem 1 gm/ Sodium (Chloride) 100 mls @ 200 mls/hr IV Q8H [facility] Isosorbide Mononitrate (Isosorbide Mononitrate 60 Mg Tab.Er.24h) 60 mg PO DAILY [facility]; Protocol Last Admin: 06/27/21 09:26 Dose: 60 mg Documented by: Meclizine HCl (Meclizine Hcl 25 Mg Tablet) 25 mg PO DAILY PRN PRN Reason: Vertigo Nitroglycerin (Nitroglycerin 0.4 Mg Tab.Subl) 0.4 mg SUBLINGUAL Q5M PRN PRN Reason: chest pain Patient Own Med( Memantine [Namenda Xr] 21 Mg Capsule) 1 each PO DAILY [facility] Last Admin: 06/28/21 09:33 Dose: 1 each Documented by: CAIT Nystatin (Nystatin Powder 15 Gm Bottle) 1 appl TOPICAL BID [facility]; Protocol Last Admin: 06/28/21 09:32 Dose: 1 appl Documented by: CAIT Omeprazole (Omeprazole 20 Mg Capsule.Dr) 20 mg PO DAILY@0630 [facility] Last Admin: 06/28/21 05:38 Dose: 20 mg Documented by: ENDER Ondansetron HCl (Ondansetron Hcl 4 Mg/2 Ml Vial) 4 mg IVPUSH Q8H PRN PRN Reason: Nausea and Vomiting Last Admin: 06/27/21 06:08 Dose: 4 mg Documented by: GIOVANNI Pharmacy Consult (Consult Rx Vancomycin Dosing) 1 each MISCELLANE DAILY PRN PRN Reason: Consult order Pregabalin (Pregabalin 50 Mg Capsule) 50 mg PO TID [facility] Last Admin: 06/27/21 19:58 Dose: 50 mg Documented by: Rivastigmine Tartrate (Rivastigmine Tartrate 6 Mg Capsule) 6 mg PO BID [facility] Last Admin: 06/28/21 09:30 Dose: 6 mg Documented by: CAIT Sertraline HCl (Sertraline Hcl 100 Mg Tablet) 100 mg PO DAILY [facility] Last Admin: 06/27/21 09:26 Dose: 100 mg Documented by: Sodium Chloride (0.9 % Sodium Chloride Flush 3 Ml Syringe) 3 ml IVFLUSH QSHIFT [facility] Last Admin: 06/28/21 09:31 Dose: 3 ml Documented by: CAIT Tiotropium [place] (Tiotropium [place] 18 Mcg Cap.W.Dev) 1 puff INHALE RDAILY [facility] Last Admin: 06/28/21 07:40 Dose: 1 puff Documented by: KILO Vitamin D (Cholecalciferol (Vitamin D3) 25 Mcg Tablet) 50 mcg PO DAILY [facility] Last Admin: 06/28/21 09:30 Dose: 50 mcg Documented by: CAIT Labs CBC & Chem 7: 06/27/21 06:36 06/28/21 06:33 Labs: Laboratory Results - last 24 hr 06/27/21 06/27/21 06/28/21 09:25 16:20 06:33 Estim Creat Clear Calc 13.3 Estimated GFR 15 B-Natriuretic Peptide 367 H Random Vancomycin 15.0 Quality Stroke Does the patient have a stroke diagnosis?: No VTE Prior VTE?: No VTE Risk Level:: Medical - moderate - high VTE Device Contraindication: N/A - Device Ordered VTE Drug Contraindication: N/A - Med Ordered
--- NOTE | 2021-06-28 11:48 | P.PNNP_ITS ---
Subjective Subjective Date of Service: 06/28/21 Principal diagnosis: LINDA Interval history: seen and examined,events noted--incr SCr again Physical Exam Vital Signs: Vital Signs: Last Vital Signs Temp 98.6 F 06/28/21 11:25 Pulse 78 06/28/21 11:25 Resp 18 06/28/21 11:25 BP 99/57 L 06/28/21 11:25 Pulse Ox 95 06/28/21 11:25 BMI result Body Mass Index 31.6 Const: General: cooperative, no acute distress and well developed Nutritional Appearance: well nourished Orientation/consciousness: patient or iented x3 Limitations: no limitations HENMT: Other: palpable hematoma and scalp wound with no active bleeding noted, minimal tenderness Eyes: General: appearance normal, both eyes and all related structures Pupils: Equal, round and reactive pupils present Resp: Effort & Inspection: normal respiratory effort Auscultation: clear to auscultation bilaterally Cardio: Rate: regular rate Rhythm: regular rhythm GI: Palpation (GI): Soft to palpation and nontender Auscultation: normal bowel sounds Skin: General skin exam: no rashes or lesions noted Neuro: General: patient oriented x3 Cranial nerves: Yes Equal, round and reactive pupils present Cognition (Neuro): normal cognition Extrem: General: Yes normal to inspection, Yes no clubbing, cyanosis or edema and Yes no pedal edema Objective Data Labs CBC & Chem 7: 06/27/21 06:36 06/28/21 06:33 Labs: Laboratory Results - last 24 hr 06/27/21 06/28/21 16:20 06:33 Creatinine 2.97 H Estim Creat Clear Calc 13.3 Estimated GFR 15 Random Vancomycin 15.0 Microbiology Microbiology Results: Microbiology 06/20/21 11:28 Blood - Venous Blood Culture - Final No growth after 5 days. 06/23/21 09:58 Blood - Venous Blood Culture - Preliminary No growth after 48 hours. 06/23/21 09:58 Blood - Venous Blood Culture - Preliminary No growth after 48 hours. 06/22/21 Unknown Urine clean catch - Urine lutz top Urine Culture - Final Klebsiella pneumoniae 06/20/21 13:51 Blood - Venous Blood Culture - Final Methicillin Res Staph Aureus Procedures Date of Service Date of Service: 06/28/21 Assessment & Plan Assessment and plan (1) SARS-CoV-2 positive: Status: Acute (2) Hematoma: Status: Acute Assessment and Plan: 80-year-old female with past medical history significant for AFib on Eliquis, CHF, CKD 3 ( BSL SCr 1.5-1.8) who presents to the hospital with bleeding from a laceration her head found to have a large hematoma and LINDA on CKD and Staph bacteremia 1. LINDA: incr SCr is a concernb and ? d/t diuretics started yest for hypoxia and/or tubular injury from covid and/or VANCO--ATN 2. CKD 3: BSL SCr 1.5-1.8 3. Vol status:looks dry on exam even tho hypoxia and worse CXR---suspect covid ards 4. Staph bact MRSA and now on vanco; ques source 5. A.C: ques timing of r/s 6. Anemia: track 7. Covid +: now ques covid lung involvement 8. H/O HTN: BP now running low--hold hydralazine and may need IVF REC: check repeat BNP level and consider d/c diuretics and start IVF ( poor po intake and looks dry on exam); , cont to track renal func UOP, ; track vanco level and see if alt availbe given risk of vanco ATN will follow with team Time Spent With Patient Time: Total time spent is greater than 50% in coordination of care (as documented) at patient's floor/unit and/or counseling patient: Progress Note: Quality Stroke Does the patient have a stroke diagnosis?: No
[2021-06-28 12:36] LABS: B Type Natriuretic Peptide 780 pg/mL (<100)
[2021-06-28 16:30] LABS: Creatinine Clr Calc Pharmacy 11.4; Estimated Glomerular Filt Rate 13
[2021-06-28 16:38] LABS: Vancomycin Trough 19.6 mcg/mL (10.0-20.0)
--- NOTE | 2021-06-28 19:51 | HE.PHANOTE ---
Decreased dose to 750 mg q48 hrs since scr increased and hermila 19.6, next randome 06/29 @1600, may need to hold another dose depending on what level is.
[2021-06-28] MEDS: Pregabalin 50 MG CAPSULE PO (20:53)
[2021-06-28] MEDS: Furosemide 20 MG/2 ML VIAL 40 MG IVPUSH (21:13)
[2021-06-29] VITALS (8 sets, daily range): BP systolic 115–134; BP diastolic 56–69; PULSE 74–89; RESP 18–22; TEMP 36.4–37.3; O2SAT 85–95
[2021-06-29] MEDS: Omeprazole 20 MG CAPSULE.DR PO (05:47)
[2021-06-29 07:06] LABS: Hematocrit 28.4 % (37.0-47.0); Hemoglobin 8.4 g/dl (12.0-16.0); Mean Corpuscular HGB Conc 29.6 g/dl (31.0-35.0); Mean Corpuscular Hemoglobin 30.2 pg (27.0-33.0); Mean Corpuscular Volume 102.2 fL (80.0-98.0); Mean Platelet Volume 11.3 fL (9.4-12.3); Platelet Count 142 X10*3/uL (160-400); Red Blood Count 2.78 X10*6/uL (4.20-5.50); Red Cell Distribution Width 14.6 % (11.0-16.0); White Blood Count 10.4 X10*3/uL (4.8-10.8)
[2021-06-29 07:21] LABS: Anion Gap 15 (12-20); Blood Urea Nitrogen 54 mg/dL (9-16); Calcium 8.6 mg/dL (8.4-10.2); Carbon Dioxide 25 mmol/L (22-29); Chloride 109 mmol/L (96-108); Creatinine Clr Calc Pharmacy 10.3; Estimated Glomerular Filt Rate 11; Glucose Random 107 mg/dL (60-115); Potassium 5.3 mmol/L (3.3-5.1); Sodium 144 mmol/L (135-145)
[2021-06-29 07:24] LABS: B Type Natriuretic Peptide 3255 pg/mL (<100)
--- NOTE | 2021-06-29 08:55 | MHC.CM.PN ---
Addendum entered by Gunjan العلي 06/29/21 08:58: Discharge held r/t hypoxic episode. A rapid response was called 06/27/21 am. Original Note: LATE CHARTING Tuesday06/26/21 Female PT DP home with IV ABX. [facility] and [facility] providing home services. All information was provided to the agencies. DC was planned for 06/27 after Vanco dose. Home services were scheduled to start on Tuesday.
[2021-06-29 09:38] LABS: ABG Base Excess -1.5 mmol/L; ABG HCO3 25 mmol/L (22-26); ABG pCO2 51 mmHg (32-45); ABG pCO2 TC 50 mmHg (32-45); ABG pH 7.29 (7.35-7.45); ABG pO2 91 mmHg (83-108); ABG pO2 TC 88 (83-108)
[2021-06-29 09:46] LABS: Ammonia 26 umol/L (13-55)
[2021-06-29 09:55] LABS: Alanine Aminotransferase 79 U/L (0-31); Aspartate Amino Transferase 137 U/L (5-31); Bilirubin Direct 0.2 mg/dL (0.0-0.5); Bilirubin Total 0.4 mg/dL (0.0-1.0); Total Protein 5.8 g/dL (6.5-8.0)
[2021-06-29 09:56] LABS: Albumin Level 3.1 g/dL (3.5-5.0); Alkaline Phosphatase 67 U/L (39-117)
--- NOTE | 2021-06-29 10:55 | W.PM.CCCN ---
History of Present Illness Data of Consult Service Date: 06/29/21 Requesting physician: Stephanie Hills Primary Care Provider: Anthony Titus MD HPI Stephanie Hills asked me to look at Mrs. York in regards to whether she might need BiPaP. The patient is a 80yo F w PMHx of CHF with preserved ejection fraction, s/p TAVR, CAD, AFib on Eliquis, CKD, COPD, asthma, diabetes, hyperlipidemia, anemia, and anxiety, was diagnosed with COVID approximately June 07. On June 20, the patient presented to the hospital with bleeding from a laceration on her head.? She had a mechanical fall approximately 3 weeks prior. ?She started bleeding profusely from the lump on her head approximately 4 days [employer].? In the ED she was hemodynamically stable.? Sat was 97-100% on room air. ?Hemoglobin was 8.5, and dropped to 7.2 after 1 unit RBCs.? She was COVID positive.? Occult stool was negative x2. Head CT showed early large right occipital scalp hematoma, with a nondisplaced left occipital fracture.? She also had an old healed cervical spine fracture at the posterior base of C2. She was admitted to Medicine for management of acute anemia.? Anticoagulation was stopped.? Blood cultures drawn in the ED came back positive 1 out of 2 sets for MRSA.? She was started on vancomycin F/U blood cultures on Jun 23 were negative. She was planned to be discharged a few days ago, but on she became mildly hypoxemic on 06/26 requiring low dose NC oxygen. ?CXR showed diffuse interstitial infiltrates, with perihilar prominence.? Markedly different than her last CXR of Feb 2020.? Started on Meropenam.? Yesterday MS became altered.? A head CT the previous day showed no notable intracranial findings.? Ammonia level today was normal.? Arterial blood gas (? 2L NC) showed 7.29/51/91/-1. On my exam on [facility], the patient is lethargic but arousable.? Looks ill, maybe mildly toxic, but not floridly so.? RR about 20-22, no access musc, maybe mild abdom paradox.? Sat 85% on room air, 94% on 2L NC.? No JVD at 30?, no edema. IMPRESSION:? Three issues here: 1. Altered MS.? Probably a metabolic encephalopathy.? Undetermined etiology.? Hypercarbia and hepatic enceph ruled out.? Could be septic, could be COVID encephalopathy.? Suggest check blood cultures, lactate, and VBG with tomorrow morning?s routine labs. 2. Hypoxemia.? Her hypoventilation (pCO2 of 51) doesn?t explain her degree of hypoxemia.? And with a pCO2 of 51, there is no indication for BiPAP. So the hypoxemia is 2? to a pulmonary parenchymal problem, as shown by the diffuse interstitial infiltrates on her CXR.? The diffuse infiltrates are inconsistent with any kind of bacterial pneumonia.? IMO, there is no reason for her to be on Meropenam and I would stop that.? Her pulmonary infiltrates are most c/w either COVID pneumonia, or pulmonary edema.? Her BNP is, obviously, c/w pulmon edema, but she?s got no systemic edema and her renal indices are rising (and her right heart is normal on echo).? At this time I would suggest stopping the diuresis and checking a chest CT.? If the chest CT is c/w COVID, I would consider that to be the cause of her hypoxemia, and treat her accordingly (even though she?s at least 3 weeks past symptom onset date, which is way past the usual time for onset of COVID pneumonia). 3. Positive blood culture for MRSA.? Her blood cultures from the ED were positive only 1 out of 2 sets.? From reading the notes, I was unable to find a valid reason why the blood cultures were drawn in the ED in the first place.? Therefore, IMO, the single positive blood culture has to be considered suspect, even though it came back MRSA, which is not the usual contaminant.? The follow-up blood cultures were negative, but unfortunately, they were drawn after vancomycin was started. ? ??So we?re left in a quandary here.? Certainly, positive MRSA blood cultures warrant 4 weeks of antibiotic treatment.? But 4 weeks of vancomycin is not benign, and I do not see any definitive proof or even reason to think that this lady actually had positive blood cultures. ? ??What I would do at this point, is to stop the vancomycin, and draw 2 sets of blood cultures every other day for 2 draws, and then weekly x 2 weeks.? (And she does not need to be in the hospital for that.)? If she has good veins, I would draw the blood cultures peripherally.? But since she now has a Rbo catheter in place, if she doesn?t have really excellent veins, there is no reason not to draw the blood cultures from the Rob catheter. ?If a set of blood cultures comes back positive, then 2 new sets can immediately be drawn peripherally, and antibiotics can be restarted until those cultures come back. Have discussed all the above with Stephanie Hills and with Dr. Oakes. Time (including full hospital chart review and multiple extended discussions, as above):? 120+ min. [facility] Past Medical History Medical History (Updated 06/29/21 @ 15:28 by Petra Oakes MD) (HFpEF) heart failure with preserved ejection fraction Acute blood loss anemia Afib Anemia Anxiety Aortic valve stenosis Asthma Bacteremia Bacteremia Bacteremia Basal cell carcinoma Benign essential hypertension Cellulitis Chronic kidney disease, stage 4 (severe) COPD (chronic obstructive pulmonary disease) Diabetic polyneuropathy Fracture Gallstones Hospital discharge follow-up Hypernatremia Melanoma Mild cognitive impairment with memory loss Nocturnal hypoxemia Obesity (BMI 30-39.9) Paroxysmal atrial fibrillation Pure hypercholesterolemia Pyuria Thrombocytopenia Type 2 diabetes mellitus with diabetic chronic kidney disease Family History Family History Father Medical history unknown Mother Acute myeloid leukemia Cancer Maternal Grandmother Myocardial infarction Brother Myocardial infarction Sister Brain aneurysm Family history: reviewed and not pertinent Surgical History Surgical History History of cardiac catheterization History of colonoscopy History of eye surgery 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) Stented coronary artery Social History Social History Household Members: Children Housing: House Are you a primary pet care assistant to a significant other at home: No Alcohol intake: never Patient Tobacco Use Status: Former Tobacco user Years Smoked: 19 e-Cigarette/Vaping Use: Never Used Second Hand Smoke Exposure: Yes Advance Directives Date on File: 07/24/20 service: No Current occupational status: retired Cognitive needs: No Hearing needs: No Vision needs: No Meds Allergies Allergy/AdvReac Type Severity Reaction Status Date / Time Penicillins [PENICILLINS] Allergy Severe HIVES/SWELL Verified 06/16/21 12:02 ING Active Medications: Current Medications Acetaminophen (Acetaminophen 325 Mg Tablet) 650 mg PO Q6H PRN PRN Reason: Pain, Mild (Pain Scale 1-3) Last Admin: 06/25/21 21:40 Dose: 650 mg Documented by: Albuterol Sulfate (Albuterol Sulfate 90 Mcg 8 Gm Inhaler) 2 puff INHALE Q6H PRN PRN Reason: Wheezing Amiodarone HCl (Amiodarone Hcl 200 Mg Tablet) 200 mg PO DAILY [facility] Last Admin: 06/28/21 13:39 Dose: Not Given Documented by: Amlodipine Besylate (Amlodipine Besylate 10 Mg Tablet) 10 mg PO DAILY [facility]; Protocol Last Admin: 06/28/21 13:39 Dose: Not Given Documented by: Atorvastatin Calcium (Atorvastatin Calcium 20 Mg Tablet) 20 mg PO DAILY [facility] Last Admin: 06/28/21 09:31 Dose: 20 mg Documented by: Calcitriol (Calcitriol 0.25 Mcg Capsule) 0.25 mcg PO Q2D [facility] Last Admin: 06/27/21 09:29 Dose: 0.25 mcg Documented by: Docusate Sodium (Docusate Sodium 100 Mg Capsule) 100 mg PO DAILY PRN PRN Reason: Constipation Ferrous Sulfate (Ferrous Sulfate 324 Mg Tablet.Dr) 324 mg PO DAILY [facility] Last Admin: 06/28/21 13:40 Dose: Not Given Documented by: Furosemide (Furosemide 20 Mg/2 Ml Vial) 60 mg IVPUSH BID@0900,1800 [facility]; Protocol Hydralazine HCl (Hydralazine Hcl 50 Mg Tablet) 100 mg PO BID [facility]; Protocol Last Admin: 06/28/21 20:54 Dose: 100 mg Documented by: Meropenem 500 mg/ Sodium (Chloride) 50 mls @ 100 mls/hr IV Q12H [facility] Last Infusion: 06/29/21 03:20 Dose: Infused Documented by: Vancomycin HCl 750 mg/ Sodium (Chloride) 265 mls @ 265 mls/hr IV Q48H [facility] Isosorbide Mononitrate (Isosorbide Mononitrate 60 Mg Tab.Er.24h) 60 mg PO DAILY [facility]; Protocol Last Admin: 06/28/21 13:40 Dose: Not Given Documented by: Meclizine HCl (Meclizine Hcl 25 Mg Tablet) 25 mg PO DAILY PRN PRN Reason: Vertigo Nitroglycerin (Nitroglycerin 0.4 Mg Tab.Subl) 0.4 mg SUBLINGUAL Q5M PRN PRN Reason: chest pain Patient Own Med( Memantine [Namenda Xr] 21 Mg Capsule) 1 each PO DAILY [facility] Last Admin: 06/28/21 09:33 Dose: 1 each Documented by: Nystatin (Nystatin Powder 15 Gm Bottle) 1 appl TOPICAL BID [facility]; Protocol Last Admin: 06/28/21 20:55 Dose: 1 appl Documented by: Omeprazole (Omeprazole 20 Mg Capsule.Dr) 20 mg PO DAILY@0630 [facility] Last Admin: 06/29/21 05:47 Dose: 20 mg Documented by: Ondansetron HCl (Ondansetron Hcl 4 Mg/2 Ml Vial) 4 mg IVPUSH Q8H PRN PRN Reason: Nausea and Vomiting Last Admin: 06/27/21 06:08 Dose: 4 mg Documented by: Pharmacy Consult (Consult Rx Vancomycin Dosing) 1 each MISCELLANE DAILY PRN PRN Reason: Consult order Pregabalin (Pregabalin 50 Mg Capsule) 50 mg PO TID [facility] Last Admin: 06/28/21 20:53 Dose: 50 mg Documented by: Rivastigmine Tartrate (Rivastigmine Tartrate 6 Mg Capsule) 6 mg PO BID [facility] Last Admin: 06/28/21 20:54 Dose: 6 mg Documented by: Sertraline HCl (Sertraline Hcl 100 Mg Tablet) 100 mg PO DAILY [facility] Last Admin: 06/28/21 13:40 Dose: Not Given Documented by: Sodium Chloride (0.9 % Sodium Chloride Flush 3 Ml Syringe) 3 ml IVFLUSH QSHIFT [facility] Last Admin: 06/28/21 20:55 Dose: 3 ml Documented by: Tiotropium Morris (Tiotropium Morris 18 Mcg Cap.W.Dev) 1 puff INHALE RDAILY [facility] Last Admin: 06/29/21 07:47 Dose: 1 puff Documented by: Vitamin D (Cholecalciferol (Vitamin D3) 25 Mcg Tablet) 50 mcg PO DAILY [facility] Last Admin: 06/28/21 09:30 Dose: 50 mcg Documented by: Home Medications Medication Instructions Recorded Confirmed Last Taken Type acetaminophen 650 mg tablet 650 mg PO Q4H PRN 03/05/20 06/21/21 Unknown History cholecalciferol (vitamin D3) 50 2,000 unit PO DAILY 03/05/20 06/21/21 03/04/20 History mcg (2,000 unit) capsule memantine 21 mg capsule 21 mg PO DAILY 03/05/20 06/21/21 03/04/20 History sprinkle,extended release 24hr (Namenda XR) albuterol sulfate 90 mcg/actuation 2 puff INHALATION Q6H PRN g 04/06/20 06/21/21 Unknown History aerosol inhaler (ProAir HFA) meclizine 12.5 mg tablet 25 mg PO NEEDED 05/19/20 06/21/21 Unknown History umeclidinium 62.5 mcg/actuation 1 inh INHALATION BEDTIME 06/10/20 06/21/21 Unknown History blister powder for inhalation (Incruse Ellipta) nystatin 100,000 unit/gram topical 1 appl TOPICAL BID 05/08/21 06/21/21 Unknown History powder rivastigmine tartrate 6 mg capsule 6 mg PO BID 05/12/21 06/21/21 Unknown History isosorbide mononitrate 60 mg 1 tab PO DAILY 06/21/21 06/21/21 Unknown History tablet,extended release 24 hr Physical Exam Vital Signs: Vital Signs: Last Vital Signs Temp 97.7 F 06/29/21 07:42 Pulse 74 06/29/21 07:50 Resp 20 06/29/21 07:50 BP 126/64 06/29/21 07:42 Pulse Ox 93 06/29/21 07:42 BMI result Body Mass Index 31.6 Results Labs CBC & Chem 7: 06/29/21 06:45 06/29/21 16:47 Labs: Short CBC 06/29/21 Range/Units 06:45 WBC 10.4 (4.8-10.8) X10*3/uL Hgb 8.4 L (12.0-16.0) g/dl Hct 28.4 L (37.0-47.0) % Plt Count 142 L (160-400) X10*3/uL BMP 06/28/21 06/29/21 16:07 06:45 Sodium 144 Potassium 5.3 H D Chloride 109 H Carbon Dioxide 25 BUN 54 H D Creatinine 3.48 H 3.84 H Calcium 8.6 Liver Function 06/29/21 Range/Units 09:29 Total Bilirubin 0.4 (0.0-1.0) mg/dL Direct Bilirubin 0.2 (0.0-0.5) mg/dL AST 137 H (5-31) U/L ALT 79 H (0-31) U/L Alkaline Phosphatase 67 (39-117) U/L Albumin 3.1 L (3.5-5.0) g/dL Microbiology Microbiology Results: Microbiology 06/23/21 09:58 Blood - Venous Blood Culture - Final No growth after 5 days. 06/23/21 09:58 Blood - Venous Blood Culture - Final No growth after 5 days. 06/20/21 11:28 Blood - Venous Blood Culture - Final No growth after 5 days. 06/22/21 Unknown Urine clean catch - Urine lutz top Urine Culture - Final Klebsiella pneumoniae 06/20/21 13:51 Blood - Venous Blood Culture - Final Methicillin Res Staph Aureus
[2021-06-29] MEDS: Furosemide 20 MG/2 ML VIAL 60 MG IVPUSH (11:02)
[2021-06-29] MEDS: 0.9 % Sodium Chloride Flush 3 ML SYRINGE IVFLUSH ×3 (11:03→21:02)
[2021-06-29] MEDS: Nystatin Powder 15 GM BOTTLE 1 APPL TOPICAL ×2 (11:07→20:56)
[2021-06-29 11:12] LABS: ABG Refer to POC result
--- NOTE | 2021-06-29 14:54 | MHC.CLN ---
F/U PT WITH INCREASED NUTRITION RISK R/T PRESSURE INJURY DIET RX: CARDAIC-APPROPRIATE PT RECEIVING ENSURE BID TO INCREASE KCALS AND PROMOTE WOUND HEALING SUPP TO PROVIDE 700KCALS, 40G PROTEIN MONITOR PO INTAKE CLOSELY
--- NOTE | 2021-06-29 15:08 | HO.PM.IMPN ---
Subjective Subjective Date of Service: 06/29/21 Review of Systems Follow up Hyperkalemia, encephalopathy More lethargic today Physical Exam Vital Signs: Vital Signs: Last Vital Signs Temp 97.6 F 06/29/21 11:24 Pulse 75 06/29/21 11:24 Resp 20 06/29/21 11:24 BP 115/56 L 06/29/21 11:24 Pulse Ox 94 06/29/21 11:24 BMI result Body Mass Index 31.6 Appearing in no acute distress lung sounds are clear to auscultation heart regular rate rhythm, clear S1, S2 positive bowel sounds, abdomen is soft, nontender neuro patient is lethargic Objective Data Active Medications Acetaminophen (Acetaminophen 325 Mg Tablet) 650 mg PO Q6H PRN PRN Reason: Pain, Mild (Pain Scale 1-3) Last Admin: 06/25/21 21:40 Dose: 650 mg Documented by: PRATIMA Albuterol Sulfate (Albuterol Sulfate 90 Mcg 8 Gm Inhaler) 2 puff INHALE Q6H PRN PRN Reason: Wheezing Amiodarone HCl (Amiodarone Hcl 200 Mg Tablet) 200 mg PO DAILY [facility] Last Admin: 06/29/21 11:05 Dose: Not Given Documented by: FELECIA Non-Admin Reason: unable to follow instructions Amlodipine Besylate (Amlodipine Besylate 10 Mg Tablet) 10 mg PO DAILY [facility]; Protocol Last Admin: 06/29/21 11:05 Dose: Not Given Documented by: FELECIA Non-Admin Reason: unable to follow instructions Atorvastatin Calcium (Atorvastatin Calcium 20 Mg Tablet) 20 mg PO DAILY [facility] Last Admin: 06/29/21 11:05 Dose: Not Given Documented by: FELECIA Non-Admin Reason: unable to follow instructions Calcitriol (Calcitriol 0.25 Mcg Capsule) 0.25 mcg PO Q2D [facility] Last Admin: 06/29/21 11:10 Dose: Not Given Documented by: FELECIA Non-Admin Reason: unable to follow instructions Docusate Sodium (Docusate Sodium 100 Mg Capsule) 100 mg PO DAILY PRN PRN Reason: Constipation Ferrous Sulfate (Ferrous Sulfate 324 Mg Tablet.) 324 mg PO DAILY [facility] Last Admin: 06/29/21 11:06 Dose: Not Given Documented by: FELECIA Non-Admin Reason: unable to follow instructions Furosemide (Furosemide 20 Mg/2 Ml Vial) 60 mg IVPUSH BID@0900,1800 [facility]; Protocol Last Admin: 06/29/21 11:02 Dose: 60 mg Documented by: FELECIA Hydralazine HCl (Hydralazine Hcl 50 Mg Tablet) 100 mg PO BID [facility]; Protocol Last Admin: 06/29/21 11:06 Dose: Not Given Documented by: FELECIA Non-Admin Reason: unable to follow instructions Meropenem 500 mg/ Sodium (Chloride) 50 mls @ 100 mls/hr IV Q12H [facility] Last Infusion: 06/29/21 03:20 Dose: 0 mls/hr Documented by: FRAN Vancomycin HCl 750 mg/ Sodium (Chloride) 265 mls @ 265 mls/hr IV Q48H [facility] Isosorbide Mononitrate (Isosorbide Mononitrate 60 Mg Tab.Er.24h) 60 mg PO DAILY [facility]; Protocol Last Admin: 06/29/21 11:06 Dose: Not Given Documented by: FELECIA Non-Admin Reason: unable to follow instructions Meclizine HCl (Meclizine Hcl 25 Mg Tablet) 25 mg PO DAILY PRN PRN Reason: Vertigo Nitroglycerin (Nitroglycerin 0.4 Mg Tab.Subl) 0.4 mg SUBLINGUAL Q5M PRN PRN Reason: chest pain Patient Own Med( Memantine [Namenda Xr] 21 Mg Capsule) 1 each PO DAILY [facility] Last Admin: 06/29/21 11:07 Dose: Not Given Documented by: FELECIA Non-Admin Reason: unable to follow instructions Nystatin (Nystatin Powder 15 Gm Bottle) 1 appl TOPICAL BID [facility]; Protocol Last Admin: 06/29/21 11:07 Dose: 1 appl Documented by: FELECIA Omeprazole (Omeprazole 20 Mg Capsule.) 20 mg PO DAILY@0630 [facility] Last Admin: 06/29/21 05:47 Dose: 20 mg Documented by: FRAN Ondansetron HCl (Ondansetron Hcl 4 Mg/2 Ml Vial) 4 mg IVPUSH Q8H PRN PRN Reason: Nausea and Vomiting Last Admin: 06/27/21 06:08 Dose: 4 mg Documented by: GIOVANNI Pharmacy Consult (Consult Rx Vancomycin Dosing) 1 each MISCELLANE DAILY PRN PRN Reason: Consult order Pregabalin (Pregabalin 50 Mg Capsule) 50 mg PO TID [facility] Last Admin: 06/29/21 11:07 Dose: Not Given Documented by: FELECIA Non-Admin Reason: unable to follow instructions Rivastigmine Tartrate (Rivastigmine Tartrate 6 Mg Capsule) 6 mg PO BID [facility] Last Admin: 06/29/21 11:08 Dose: Not Given Documented by: FELECIA Non-Admin Reason: unable to follow instructions Sertraline HCl (Sertraline Hcl 100 Mg Tablet) 100 mg PO DAILY [facility] Last Admin: 06/29/21 11:08 Dose: Not Given Documented by: FELECIA Non-Admin Reason: unable to foloow instructions Sodium Chloride (0.9 % Sodium Chloride Flush 3 Ml Syringe) 3 ml IVFLUSH QSHIFT [facility] Last Admin: 06/29/21 11:03 Dose: 3 ml Documented by: FELECIA Tiotropium [place] (Tiotropium [place] 18 Mcg Cap.W.Dev) 1 puff INHALE RDAILY [facility] Last Admin: 06/29/21 07:47 Dose: 1 puff Documented by: KILO Vitamin D (Cholecalciferol (Vitamin D3) 25 Mcg Tablet) 50 mcg PO DAILY [facility] Last Admin: 06/29/21 11:06 Dose: Not Given Documented by: FELECIA Non-Admin Reason: unable to follow instructions Labs CBC & Chem 7: 06/29/21 06:45 06/29/21 06:45 Labs: Laboratory Results - last 24 hr 06/28/21 06/28/21 06/29/21 16:07 16:07 06:45 MCV 102.2 H MCH 30.2 MCHC 29.6 L RDW 14.6 Plt Count 142 L MPV 11.3 Absolute Nucleated RBC 0.000 Nucleated RBC % (auto) 0.0 O2 Saturation ABG pH at Pt Temp ABG pH (Temp Correct) ABG pCO2 at Pt Temp ABG pCO2 (Temp Corrct ABG pO2 at Pt Temp ABG pO2 (Temp Correct ABG HCO3 ABG Base Excess (Actual) Anion Gap Estim Creat Clear Calc 11.4 Estimated GFR 13 Random Glucose Calcium Total Bilirubin Direct Bilirubin AST ALT Alkaline Phosphatase Ammonia B-Natriuretic Peptide Total Protein Albumin Vancomycin Trough 19.6 06/29/21 06/29/21 06/29/21 06:45 06:45 09:29 MCV MCH MCHC RDW Plt Count MPV Absolute Nucleated RBC Nucleated RBC % (auto) O2 Saturation ABG pH at Pt Temp ABG pH (Temp Correct) ABG pCO2 at Pt Temp ABG pCO2 (Temp Corrct ABG pO2 at Pt Temp ABG pO2 (Temp Correct ABG HCO3 ABG Base Excess (Actual) Anion Gap 15 Estim Creat Clear Calc 10.3 Estimated GFR 11 Random Glucose 107 Calcium 8.6 Total Bilirubin Direct Bilirubin AST ALT Alkaline Phosphatase Ammonia 26 B-Natriuretic Peptide 3255 H Total Protein Albumin Vancomycin Trough 06/29/21 06/29/21 09:29 09:29 MCV MCH MCHC RDW Plt Count MPV Absolute Nucleated RBC Nucleated RBC % (auto) O2 Saturation 97.0 ABG pH at Pt Temp 7.29 L ABG pH (Temp Correct) 7.30 L ABG pCO2 at Pt Temp 51 H ABG pCO2 (Temp Corrct 50 H ABG pO2 at Pt Temp 91 ABG pO2 (Temp Correct 88 ABG HCO3 25 ABG Base Excess (Actual) -1.5 Anion Gap Estim Creat Clear Calc Estimated GFR Random Glucose Calcium Total Bilirubin 0.4 Direct Bilirubin 0.2 AST 137 H ALT 79 H Alkaline Phosphatase 67 Ammonia B-Natriuretic Peptide Total Protein 5.8 L Albumin 3.1 L Vancomycin Trough Microbiology Microbiology Results: Microbiology 06/23/21 09:58 Blood Culture - Final Blood - Venous No growth after 5 days. 06/23/21 09:58 Blood Culture - Final Blood - Venous No growth after 5 days. Assessment and Plan (1) Aspiration pneumonia: Status: Acute (2) MRSA bacteremia: Status: Acute Assessment and Plan: 80-year-old female with past medical history significant for AFib on Eliquis, CHF who presents to the hospital with bleeding from a laceration her head found to have a large hematoma. Encephalopathy. More lethargic Normal ammonia ABG 7.29///24.7 discussed case with ICU, consult pending Recheck VBG and BMP Acute hypoxic respiratory failure possibly secondary to heart failure and COVID and possible aspiration pneumonia Oxygen saturation improved with supplemental oxygen, desats quickly on room air even at rest Chest x-ray showing increased perihilar opacities Discussed with cardiology will add IV Lasix for diuresis, follow BNP Brain CT negative for acute abnormality Will add meropenem (PCN allergy) for aspiration MRSA bacteremia BCx from 06/20/2021 1/2 culture positive for MRSA, repeat BCx negative x 48 hours unclear source echo Showed EF of 60-65% with no regional wall motion abnormalities will need 4 weeks IV abx on discharge per ID tuttle placed 06/26 chest pain episode of chest pain, no recurrence ekg similar to previous trops elevated but flat db on ckd stage 4:? Scr down to 2.07 nephro following follow BMP Acute blood loss anemia secondary to hematoma s/p 2 units of PRBC-h/h 9 stool occult blood negative H/H stable Eliquis on hold hematoma of the head patient had a mechanical fall 3 weeks [employer], now has CT showing large central and right occipital hematoma with laceration and nondisplaced left occipital fracture consult General surgery-Recommend observation of the hematoma off anticoagulation COVID positive no hypoxia. positive 2 weeks ago but continues to have cough monitor respiratory status CHF not in exacerbation and not on a diuretic AFib continue amiodarone hold apixaban given hematoma/anemia, likely hold for 14 days asymptomatic bacteriuria/pyuria:? ceftriaxone stopped. UCx growing klebsiella discussed with ID, no need for treatment, pt asymptomatic HTN continue hydralazine, norvasc nocturnal? hypoxia 2L o2 at night dvt ppx -mechanical devices; eliquis on hold for occipital fracture/hematoma code status - full code attending Dr. Dc dispo - seen by PT rec home with services with medically ready Quality Stroke Does the patient have a stroke diagnosis?: No VTE Prior VTE?: No VTE Risk Level:: Medical - moderate - high VTE Device Contraindication: N/A - Device Ordered VTE Drug Contraindication: N/A - Med Ordered
--- NOTE | 2021-06-29 15:14 | MHC.CM.PN ---
Female 80 Covid+. Patient was scheduled for discharge last Tuesday(See previous note) Per MD rounds She is needing BIPAP. May have an ICU consult today. CM will follow for discharge.
--- NOTE | 2021-06-29 15:26 | P.PNID_ITS ---
Subjective Subjective Date of Service: 06/29/21 Critical Care Time (minutes): 15 Comment: patient had leukocytosis yesterday she has no specific complaints Objective Data Labs CBC & Chem 7: 07/05/21 06:01 07/05/21 06:01 Labs: Laboratory Results - last 24 hr 06/28/21 06/28/21 06/29/21 16:07 16:07 06:45 WBC 10.4 RBC 2.78 L Hgb 8.4 L Hct 28.4 L MCV 102.2 H MCH 30.2 MCHC 29.6 L RDW 14.6 Plt Count 142 L MPV 11.3 Absolute Nucleated RBC 0.000 Nucleated RBC % (auto) 0.0 O2 Saturation ABG pH at Pt Temp ABG pH (Temp Correct) ABG pCO2 at Pt Temp ABG pCO2 (Temp Corrct ABG pO2 at Pt Temp ABG pO2 (Temp Correct ABG HCO3 ABG Base Excess (Actual) Sodium Potassium Chloride Carbon Dioxide Anion Gap BUN Creatinine 3.48 H Estim Creat Clear Calc 11.4 Estimated GFR 13 Random Glucose Calcium Total Bilirubin Direct Bilirubin AST ALT Alkaline Phosphatase Ammonia B-Natriuretic Peptide Total Protein Albumin Vancomycin Trough 19.6 06/29/21 06/29/21 06/29/21 06:45 06:45 09:29 WBC RBC Hgb Hct MCV MCH MCHC RDW Plt Count MPV Absolute Nucleated RBC Nucleated RBC % (auto) O2 Saturation ABG pH at Pt Temp ABG pH (Temp Correct) ABG pCO2 at Pt Temp ABG pCO2 (Temp Corrct ABG pO2 at Pt Temp ABG pO2 (Temp Correct ABG HCO3 ABG Base Excess (Actual) Sodium 144 Potassium 5.3 H D Chloride 109 H Carbon Dioxide 25 Anion Gap 15 BUN 54 H D Creatinine 3.84 H Estim Creat Clear Calc 10.3 Estimated GFR 11 Random Glucose 107 Calcium 8.6 Total Bilirubin Direct Bilirubin AST ALT Alkaline Phosphatase Ammonia 26 B-Natriuretic Peptide 3255 H Total Protein Albumin Vancomycin Trough 06/29/21 06/29/21 09:29 09:29 WBC RBC Hgb Hct MCV MCH MCHC RDW Plt Count MPV Absolute Nucleated RBC Nucleated RBC % (auto) O2 Saturation 97.0 ABG pH at Pt Temp 7.29 L ABG pH (Temp Correct) 7.30 L ABG pCO2 at Pt Temp 51 H ABG pCO2 (Temp Corrct 50 H ABG pO2 at Pt Temp 91 ABG pO2 (Temp Correct 88 ABG HCO3 25 ABG Base Excess (Actual) -1.5 Sodium Potassium Chloride Carbon Dioxide Anion Gap BUN Creatinine Estim Creat Clear Calc Estimated GFR Random Glucose Calcium Total Bilirubin 0.4 Direct Bilirubin 0.2 AST 137 H ALT 79 H Alkaline Phosphatase 67 Ammonia B-Natriuretic Peptide Total Protein 5.8 L Albumin 3.1 L Vancomycin Trough Microbiology Microbiology Results: Microbiology 06/23/21 09:58 Blood - Venous Blood Culture - Final No growth after 5 days. 06/23/21 09:58 Blood - Venous Blood Culture - Final No growth after 5 days. 06/20/21 11:28 Blood - Venous Blood Culture - Final No growth after 5 days. 06/22/21 Unknown Urine clean catch - Urine lutz top Urine Culture - Final Klebsiella pneumoniae 06/20/21 13:51 Blood - Venous Blood Culture - Final Methicillin Res Staph Aureus Physical Exam Verdana 4l Vital Signs: Verdana 4d Verdana 4d Vital Signs: Verdana 4d Verdana 4Bd Last Vital Signs Verdana 4d Stockbroker New 4d Stockbroker New 4d Temp 97.9 F 06/29/21 15:12 Stockbroker New 4d Pulse 78 06/29/21 15:12 Stockbroker New 4d Resp 18 06/29/21 15:12 BP 119/69 06/29/21 15:12 Pulse Ox 95 06/29/21 15:12 BMI result Body Mass Index 31.6 Const: General: cooperative Resp: Effort & Inspection: normal respiratory effort Cardio: Rate: regular rate Rhythm: regular rhythm GI: Palpation (GI): Soft to palpation and nontender Assessment and Plan Assessment and plan (1) Aspiration pneumonia: Problem details: patient has aspiration pneumonia,possible gram negative,less likely anerobes Status: Acute (2) Hypoxia: Problem details: She has MRSA blood as well Status: Acute (3) MRSA bacteremia: Status: Acute Assessment and Plan: [place]re[place] likely 5-7 days Vancomycin for four week total Prognosis may be poor Time Spent With Patient Time: Total time spent is greater than 50% in coordination of care (as documented) at patient's floor/unit and/or counseling patient: Time with patient: 15 - 24 minutes
[2021-06-29 16:58] LABS: Venous Blood Gas Refer to POC result
[2021-06-29 16:58] LABS: VBG Base Excess 0.3 mmol/L; VBG HCO3 26 mmol/L (22-26); VBG pCO2 50 mmHg; VBG pH 7.32 (7.32-7.43); VBG pO2 65 mmHg
[2021-06-29 17:10] LABS: Anion Gap 15 (12-20); Blood Urea Nitrogen 61 mg/dL (9-16); Calcium 8.7 mg/dL (8.4-10.2); Carbon Dioxide 25 mmol/L (22-29); Chloride 109 mmol/L (96-108); Estimated Glomerular Filt Rate 11; Glucose Random 102 mg/dL (60-115); Potassium 5.2 mmol/L (3.3-5.1); Sodium 144 mmol/L (135-145)
[2021-06-29 17:17] LABS: B Type Natriuretic Peptide 3465 pg/mL (<100)
[2021-06-29] MEDS: vancomycin HCL 750 MG in 0.9 % Sodium Chloride 250 ML 265 MG IV (17:54)
[2021-06-29 19:35] LABS: Hemoglobin 8.3 g/dl (12.0-16.0); PLT CLUMP 1
[2021-06-29 19:37] LABS: Hematocrit 27.5 % (37.0-47.0); Mean Corpuscular HGB Conc 30.2 g/dl (31.0-35.0); Mean Corpuscular Hemoglobin 30.3 pg (27.0-33.0); Mean Corpuscular Volume 100.4 fL (80.0-98.0); Mean Platelet Volume 11.7 fL (9.4-12.3); Red Blood Count 2.74 X10*6/uL (4.20-5.50); Red Cell Distribution Width 14.4 % (11.0-16.0)
[2021-06-29 19:39] LABS: Platelet Count 119 X10*3/uL (160-400)
[2021-06-29 19:40] LABS: White Blood Count 9.9 X10*3/uL (4.8-10.8)
[2021-06-29] MEDS: Heparin Sodium,Porcine 5,000 UNIT/ML VIAL 5700 UNIT IVPUSH (20:46)
[2021-06-29] MEDS: Heparin Sodium,Porcine/1/2NS 25,000 UNIT/250 ML IV.SOLN 9.93 UNIT IVCONT (20:49)
[2021-06-30] VITALS (10 sets, daily range): BP systolic 108–152; BP diastolic 61–85; PULSE 73–90; RESP 16–19; TEMP 35.9–37.6; O2SAT 90–98
--- NOTE | 2021-06-30 | ECG_ITS ---
Test Reason : cp Blood Pressure : / mmHG Vent. Rate : 082 BPM Atrial Rate : 082 BPM P-R Int : 136 ms QRS Dur : 114 ms QT Int : 402 ms P-R-T Axes : -21 -19 153 degrees QTc Int : 469 ms Normal sinus rhythm Minimal voltage criteria for LVH, may be normal variant ( Que product ) Inferior infarct Anteroseptal infarct (cited on or before 24-JUN-2014) ST & T wave abnormality, consider lateral ischemia Abnormal ECG When compared with ECG of 27-JUN-2021 10:52, Serial changes of Anteroseptal infarct Present Referred By: Marzena Degroot Electronically Signed By:VANESSA MARTÍNEZ MD
[2021-06-30 03:01] LABS: PTT Heparin Drip 104.2 SEC (53-77.9)
[2021-06-30 06:10] LABS: PLT CLUMP 1
[2021-06-30 06:12] LABS: Hematocrit 27.6 % (37.0-47.0); Hemoglobin 8.3 g/dl (12.0-16.0); Mean Corpuscular HGB Conc 30.1 g/dl (31.0-35.0); Mean Corpuscular Hemoglobin 29.4 pg (27.0-33.0); Mean Corpuscular Volume 97.9 fL (80.0-98.0); Mean Platelet Volume 11.7 fL (9.4-12.3); Red Blood Count 2.82 X10*6/uL (4.20-5.50); Venous Blood Gas Refer to POC result
[2021-06-30 06:12] LABS: VBG Base Excess -1.2 mmol/L; VBG HCO3 23 mmol/L (22-26); VBG pCO2 37 mmHg; VBG pH 7.39 (7.32-7.43); VBG pO2 71 mmHg
[2021-06-30 06:14] LABS: Platelet Count 136 X10*3/uL (160-400); White Blood Count 9.6 X10*3/uL (4.8-10.8)
[2021-06-30 06:16] LABS: INTERNATIONAL NORM RATIO 1.2 (0.9-1.1); Prothrombin Time 13.7 SEC (9.9-13.0)
[2021-06-30 06:26] LABS: Lactic Acid 0.9 mmol/L (0.5-2.0)
[2021-06-30 06:29] LABS: Anion Gap 17 (12-20); Blood Urea Nitrogen 65 mg/dL (9-16); Calcium 8.7 mg/dL (8.4-10.2); Carbon Dioxide 24 mmol/L (22-29); Chloride 110 mmol/L (96-108); Creatinine Clr Calc Pharmacy 10.6; Estimated Glomerular Filt Rate 12; Glucose Random 96 mg/dL (60-115); Potassium 4.6 mmol/L (3.3-5.1); Sodium 146 mmol/L (135-145)
[2021-06-30] MEDS: Albuterol/Iprat 2.5/0.5MG 3 ML AMPUL.NEB INHALE ×4 (07:47→19:11)
[2021-06-30 09:51] LABS: PTT Heparin Drip 50.5 SEC (53-77.9)
[2021-06-30] MEDS: Heparin Sodium,Porcine 5,000 UNIT/ML VIAL 2800 UNIT IVPUSH ×2 (10:57→18:26)
[2021-06-30] MEDS: 0.9 % Sodium Chloride Flush 3 ML SYRINGE IVFLUSH ×3 (11:43→22:49)
[2021-06-30] MEDS: dexAMETHasone sod phosphate 4 MG/ML VIAL 6 MG IVPUSH (11:44)
[2021-06-30] MEDS: Nystatin Powder 15 GM BOTTLE 1 APPL TOPICAL ×2 (11:46→19:49)
--- NOTE | 2021-06-30 11:47 | PM.PNNEP ---
Subjective Subjective Date of Service: 06/30/21 Principal diagnosis: LINDA Interval history: seen and examined,events noted Physical Exam Vital Signs: Vital Signs: Last Vital Signs Temp 96.7 F L 06/30/21 07:57 Pulse 83 06/30/21 07:57 Resp 16 06/30/21 07:57 BP 152/85 H 06/30/21 07:57 Pulse Ox 98 06/30/21 07:57 BMI result Body Mass Index 31.6 Const: General: cooperative, no acute distress and well developed Nutritional Appearance: well nourished Orientation/consciousness: patient oriented x3 Limitations: no limitations HENMT: Other: palpable hematoma and scalp wound with no active bleeding noted, minimal tenderness Eyes: General: appearance normal, both eyes and all related structures Pupils: Equal, round and reactive pupils present Resp: Effort & Inspection: normal respiratory effort Auscultation: clear to auscultation bilaterally Cardio: Rate: regular rate Rhythm: regular rhythm GI: Palpation (GI): Soft to palpation and nontender Auscultation: normal bowel sounds Skin: General skin exam: no rashes or lesions noted Neuro: General: patient oriented x3 Cranial nerves: Yes Equal, round and reactive pupils present Cognition (Neuro): normal cognition Extrem: General: Yes normal to inspection, Yes no clubbing, cyanosis or edema and Yes no pedal edema Objective Data Labs CBC & Chem 7: 06/30/21 06:02 06/30/21 06:02 Labs: Laboratory Results - last 24 hr 06/29/21 06/29/21 06/29/21 16:47 16:47 16:47 WBC RBC Hgb Hct MCV MCH MCHC RDW Plt Count MPV Absolute Nucleated RBC Nucleated RBC % (auto) PT INR PTT (Heparin Protocol) VBG pH VBG pCO2 VBG pO2 VBG HCO3 VBG O2 Saturation VBG Base Excess Sodium 144 Potassium 5.2 H Chloride 109 H Carbon Dioxide 25 Anion Gap 15 BUN 61 H Creatinine 3.94 H Estim Creat Clear Calc 10.0 Estimated GFR 11 Random Glucose 102 Lactic Acid Calcium 8.7 Troponin I High Sens 26993.0 H* D B-Natriuretic Peptide 3465 H Random Vancomycin 17.0 06/29/21 06/29/21 06/29/21 16:52 19:24 19:24 WBC 9.9 RBC 2.74 L Hgb 8.3 L Hct 27.5 L MCV 100.4 H MCH 30.3 MCHC 30.2 L RDW 14.4 Plt Count 119 L MPV 11.7 Absolute Nucleated RBC 0.000 Nucleated RBC % (auto) 0.0 PT Cancelled INR Cancelled PTT (Heparin Protocol) Cancelled VBG pH 7.32 VBG pCO2 50 VBG pO2 65 VBG HCO3 26 VBG O2 Saturation 91.0 VBG Base Excess 0.3 Sodium Potassium Chloride Carbon Dioxide Anion Gap BUN Creatinine Estim Creat Clear Calc Estimated GFR Random Glucose Lactic Acid Calcium Troponin I High Sens B-Natriuretic Peptide Random Vancomycin 06/30/21 06/30/21 06/30/21 02:46 06:02 06:02 WBC 9.6 RBC 2.82 L Hgb 8.3 L Hct 27.6 L MCV 97.9 MCH 29.4 MCHC 30.1 L RDW 14.0 Plt Count 136 L MPV 11.7 Absolute Nucleated RBC 0.000 Nucleated RBC % (auto) 0.0 PT INR PTT (Heparin Protocol) 104.2 H VBG pH VBG pCO2 VBG pO2 VBG HCO3 VBG O2 Saturation VBG Base Excess Sodium 146 H Potassium 4.6 Chloride 110 H Carbon Dioxide 24 Anion Gap 17 BUN 65 H Creatinine 3.72 H Estim Creat Clear Calc 10.6 Estimated GFR 12 Random Glucose 96 Lactic Acid Calcium 8.7 Troponin I High Sens B-Natriuretic Peptide Random Vancomycin 06/30/21 06/30/21 06/30/21 06:02 06:02 06:02 WBC RBC Hgb Hct MCV MCH MCHC RDW Plt Count MPV Absolute Nucleated RBC Nucleated RBC % (auto) PT 13.7 H INR 1.2 H PTT (Heparin Protocol) VBG pH VBG pCO2 VBG pO2 VBG HCO3 VBG O2 Saturation VBG Base Excess Sodium Potassium Chloride Carbon Dioxide Anion Gap BUN Creatinine Estim Creat Clear Calc Estimated GFR Random Glucose Lactic Acid 0.9 Calcium Troponin I High Sens 69317.3 H* B-Natriuretic Peptide Random Vancomycin 06/30/21 06/30/21 06:07 09:27 WBC RBC Hgb Hct MCV MCH MCHC RDW Plt Count MPV Absolute Nucleated RBC Nucleated RBC % (auto) PT INR PTT (Heparin Protocol) 50.5 L D VBG pH 7.39 VBG pCO2 37 VBG pO2 71 VBG HCO3 23 VBG O2 Saturation 92.0 VBG Base Excess -1.2 Sodium Potassium Chloride Carbon Dioxide Anion Gap BUN Creatinine Estim Creat Clear Calc Estimated GFR Random Glucose Lactic Acid Calcium Troponin I High Sens B-Natriuretic Peptide Random Vancomycin Microbiology Microbiology Results: Microbiology 06/23/21 09:58 Blood - Venous Blood Culture - Final No growth after 5 days. 06/23/21 09:58 Blood - Venous Blood Culture - Final No growth after 5 days. 06/20/21 11:28 Blood - Venous Blood Culture - Final No growth after 5 days. 06/22/21 Unknown Urine clean catch - Urine lutz top Urine Culture - Final Klebsiella pneumoniae 06/20/21 13:51 Blood - Venous Blood Culture - Final Methicillin Res Staph Aureus Procedures Date of Service Date of Service: 06/30/21 Assessment & Plan Assessment and plan (1) SARS-CoV-2 positive: Status: Acute (2) Hematoma: Status: Acute Assessment and Plan: 80-year-old female with past medical history significant for AFib on Eliquis, CHF, CKD 3 ( BSL SCr 1.5-1.8) who presents to the hospital with bleeding from a laceration her head found to have a large hematoma and LINDA on CKD and Staph bacteremia and now high tropnin and gen failing with Chest CT showing pulm vasc congestion 1. LINDA: incr SCr is a concern---today SCr 3.7 bascially unchaged biut net neg 1 liter LINDA d/t: tubular injury from covid and/or VANCO--ATN 2. CKD 3: BSL SCr 1.5-1.8 3. Vol status:despite chest CT looks dry on exam even tho hypoxia and worse CXR---suspect covid ards 4. Staph bact MRSA and now on vanco; ques source 5. A.C: ques timing of r/s 6. Anemia: track 7. Covid +: now ques covid lung involvement 8. H/O HTN: BP incr now off BP meds which may need to be added ack Disc: overall doing very poorly and may need to be xfer to ICU and place SWG to optimize management of AK and hypoxia regarding fluid vs diuretic management now running low--hold hydralazine and may need IVF REC: card inpit--check IVC on u/s for additional assessment o vol status vs SWG; , cont to track renal func UOP, ; track vanco level and see if alt availbe given risk of vanco ATN; GOC discussion with family will follow with team Time Spent With Patient Time: Total time spent is greater than 50% in coordination of care (as documented) at patient's floor/unit and/or counseling patient: Progress Note: Quality Stroke Does the patient have a stroke diagnosis?: No
--- NOTE | 2021-06-30 13:00 | CA_ITS ---
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 Left Ventricle The visually estimated ejection fraction is between 20-25%. Spectral Doppler is indicative of an impaired relaxation filling pattern. Elevated filling pressures. E/E prime ratio is >15, consistent with elevated filling pressures. Wall Motion Rest Echo Findings The inferoseptal wall, inferior wall, the apex, apical septum, and mid anteroseptal segments are akinetic. All other scored wall segments showed normal motion. Pericardium/Pleural There is no evidence of pericardial effusion. Prior Study Comparison Significant changes compared to prior study dated: 06/26/2021. LV systolic function severely reduced with new wall motion abnormalities Measurements 2D Systolic Function EF 4C: 20.40 >55% EF 2C: 22.10 >55% EF BiP: 20.30 >55% Mitral Valve MV Pk E: 1.24 MV PK A: 1.26 MV Decel Time: 146.00 E/A: 1.00 E'Lateral: 12.80 E'Medial: 6.53 E/E' Med: 19.00 E/E' Lat: 9.70 PHT: 43.00 MVA PHT: 5.12 Decel [place]: 8.46 Diastolic Function MV Pk E: 1.24 MV Pk A: 1.26 E/A: 1.00 E'Medial: 6.53 E/E' Med: 19.00 E' Laterial: 12.80 E/E' Lat: 9.70 Right Ventricle TAPSE (mm): 18.50 TVS' Yovany: 12.20 Updated in Other Vendor System with Status of Final Henrry Hernandez MD electronically signed on 07/01/2021 6:29:44 PM with status of Final
--- NOTE | 2021-06-30 14:20 | P.PNIM_ITS ---
Subjective Subjective Date of Service: 06/30/21 Review of Systems Follow up Hyperkalemia, encephalopathy More lethargic today Physical Exam Vital Signs: Vital Signs: Last Vital Signs Temp 99.0 F 06/30/21 11:52 Pulse 84 06/30/21 12:03 Resp 18 06/30/21 12:03 BP 143/77 H 06/30/21 11:52 Pulse Ox 95 06/30/21 11:52 BMI result Body Mass Index 31.6 Appearing in no acute distress, lethargic lung sounds are clear to auscultation heart regular rate rhythm, clear S1, S2 positive bowel sounds, abdomen is soft, nontender neuro patient sleepy Objective Data Active Medications Acetaminophen (Acetaminophen 325 Mg Tablet) 650 mg PO Q6H PRN PRN Reason: Pain, Mild (Pain Scale 1-3) Last Admin: 06/25/21 21:40 Dose: 650 mg Documented by: PRATIMA Albuterol Sulfate (Albuterol Sulfate 90 Mcg 8 Gm Inhaler) 2 puff INHALE Q6H PRN PRN Reason: Wheezing Albuterol/Ipratropium (Albuterol/Iprat 2.5/0.5mg 3 Ml Ampul.Neb) 3 ml INHALE RQ4H WHILE AWAKE [facility] Last Admin: 06/30/21 12:00 Dose: 3 ml Documented by: GORDON Amiodarone HCl (Amiodarone Hcl 200 Mg Tablet) 200 mg PO DAILY [facility] Last Admin: 06/30/21 12:03 Dose: Not Given Documented by: CHRISTOPHER Non-Admin Reason: Patient Refused Amlodipine Besylate (Amlodipine Besylate 10 Mg Tablet) 10 mg PO DAILY [facility]; Protocol Last Admin: 06/30/21 12:03 Dose: Not Given Documented by: CHRISTOPHER Non-Admin Reason: Patient Refused Atorvastatin Calcium (Atorvastatin Calcium 20 Mg Tablet) 20 mg PO DAILY [facility] Last Admin: 06/30/21 12:04 Dose: Not Given Documented by: CHRISTOPHER Non-Admin Reason: Patient Refused Calcitriol (Calcitriol 0.25 Mcg Capsule) 0.25 mcg PO Q2D [facility] Last Admin: 06/29/21 11:10 Dose: Not Given Documented by: FELECIA Non-Admin Reason: unable to follow instructions Dexamethasone Sodium Phosphate (Dexamethasone Sod Phosphate 4 Mg/Ml Vial) 6 mg IVPUSH DAILY [facility] Stop: 07/09/21 09:01 Last Admin: 06/30/21 11:44 Dose: 6 mg Documented by: CHRISTOPHER Docusate Sodium (Docusate Sodium 100 Mg Capsule) 100 mg PO DAILY PRN PRN Reason: Constipation Ferrous Sulfate (Ferrous Sulfate 324 Mg Tablet.Dr) 324 mg PO DAILY [facility] Last Admin: 06/30/21 12:04 Dose: Not Given Documented by: CHRISTOPHER Non-Admin Reason: Patient Refused Heparin Sodium (Porcine) (Heparin Sodium,Porcine 5,000 Unit/Ml Vial) 2,800 unit 40 unit/kg (2800 unit) IVPUSH PROTOCOL BOLUS PRN; Protocol PRN Reason: 40 unit/kg - Heparin Protocol Last Admin: 06/30/21 10:57 Dose: 2,800 unit Documented by: CHRISTOPHER Heparin Sodium (Porcine) (Heparin Sodium,Porcine 5,000 Unit/Ml Vial) 5,700 unit 80 unit/kg (5700 unit) IVPUSH PROTOCOL BOLUS PRN; Protocol PRN Reason: 80 unit/kg - Heparin Protocol Hydralazine HCl (Hydralazine Hcl 50 Mg Tablet) 100 mg PO BID [facility]; Protocol Last Admin: 06/30/21 12:04 Dose: Not Given Documented by: CHRISTOPHER Non-Admin Reason: Patient Refused Meropenem 500 mg/ Sodium (Chloride) 50 mls @ 100 mls/hr IV Q12H [facility] Last Infusion: 06/30/21 04:03 Dose: 0 mls/hr Documented by: FRAN Vancomycin HCl 750 mg/ Sodium (Chloride) 265 mls @ 265 mls/hr IV Q48H [facility] Last Infusion: 06/29/21 21:01 Dose: 0 mls/hr Documented by: FRAN Heparin Sodium/Sodium Chloride () 25,000 unit in 250 mls @ 0 mls/hr IVCONT .Q0M [facility]; Protocol Last Titration: 06/30/21 10:59 Dose: 13 units/kg/hr, 9.22 mls/hr Documented by: CHRISTOPHER Cosigned by: WINSOME Isosorbide Mononitrate (Isosorbide Mononitrate 60 Mg Tab.Er.24h) 60 mg PO DAILY [facility]; Protocol Last Admin: 06/30/21 12:04 Dose: Not Given Documented by: CHRISTOPHER Non-Admin Reason: Patient Refused Meclizine HCl (Meclizine Hcl 25 Mg Tablet) 25 mg PO DAILY PRN PRN Reason: Vertigo Nitroglycerin (Nitroglycerin 0.4 Mg Tab.Subl) 0.4 mg SUBLINGUAL Q5M PRN PRN Reason: chest pain Patient Own Med( Memantine [Namenda Xr] 21 Mg Capsule) 1 each PO DAILY [facility] Last Admin: 06/30/21 12:05 Dose: Not Given Documented by: CHRISTOPHER Non-Admin Reason: Patient Refused Nystatin (Nystatin Powder 15 Gm Bottle) 1 appl TOPICAL BID [facility]; Protocol Last Admin: 06/30/21 11:46 Dose: 1 appl Documented by: CHRISTOPHER Omeprazole (Omeprazole 20 Mg Capsule.Dr) 20 mg PO DAILY@0630 [facility] Last Admin: 06/30/21 05:44 Dose: Not Given Documented by: RFAN Non-Admin Reason: NPO Ondansetron HCl (Ondansetron Hcl 4 Mg/2 Ml Vial) 4 mg IVPUSH Q8H PRN PRN Reason: Nausea and Vomiting Last Admin: 06/27/21 06:08 Dose: 4 mg Documented by: GIOVANNI Pregabalin (Pregabalin 50 Mg Capsule) 50 mg PO TID [facility] Last Admin: 06/30/21 12:05 Dose: Not Given Documented by: CHRISTOPHER Non-Admin Reason: Patient Refused Rivastigmine Tartrate (Rivastigmine Tartrate 6 Mg Capsule) 6 mg PO BID [facility] Last Admin: 06/30/21 12:05 Dose: Not Given Documented by: CHRISTOPHER Non-Admin Reason: Patient Refused Sertraline HCl (Sertraline Hcl 100 Mg Tablet) 100 mg PO DAILY [facility] Last Admin: 06/30/21 12:05 Dose: Not Given Documented by: CHRISTOPHER Non-Admin Reason: Patient Refused Sodium Chloride (0.9 % Sodium Chloride Flush 3 Ml Syringe) 3 ml IVFLUSH QSHIFT [facility] Last Admin: 06/30/21 11:43 Dose: 3 ml Documented by: CHRISTOPHER Vitamin D (Cholecalciferol (Vitamin D3) 25 Mcg Tablet) 50 mcg PO DAILY [facility] Last Admin: 01/25/22 12:04 Dose: Not Given Documented by: CHRISTOPHER Non-Admin Reason: Patient Refused Labs CBC & Chem 7: 06/30/21 06:02 06/30/21 06:02 Labs: Laboratory Results - last 24 hr 06/29/21 06/29/21 06/29/21 16:47 16:47 16:47 MCV MCH MCHC RDW Plt Count MPV Absolute Nucleated RBC Nucleated RBC % (auto) PT INR PTT (Heparin Protocol) VBG pH VBG pCO2 VBG pO2 VBG HCO3 VBG O2 Saturation VBG Base Excess Anion Gap 15 Estim Creat Clear Calc 10.0 Estimated GFR 11 Random Glucose 102 Lactic Acid Calcium 8.7 Troponin I High Sens 48080.0 H* D B-Natriuretic Peptide 3465 H Random Vancomycin 17.0 06/29/21 06/29/21 06/29/21 16:52 19:24 19:24 MCV 100.4 H MCH 30.3 MCHC 30.2 L RDW 14.4 Plt Count 119 L MPV 11.7 Absolute Nucleated RBC 0.000 Nucleated RBC % (auto) 0.0 PT Cancelled INR Cancelled PTT (Heparin Protocol) Cancelled VBG pH 7.32 VBG pCO2 50 VBG pO2 65 VBG HCO3 26 VBG O2 Saturation 91.0 VBG Base Excess 0.3 Anion Gap Estim Creat Clear Calc Estimated GFR Random Glucose Lactic Acid Calcium Troponin I High Sens B-Natriuretic Peptide Random Vancomycin 06/30/21 06/30/21 06/30/21 02:46 06:02 06:02 MCV 97.9 MCH 29.4 MCHC 30.1 L RDW 14.0 Plt Count 136 L MPV 11.7 Absolute Nucleated RBC 0.000 Nucleated RBC % (auto) 0.0 PT INR PTT (Heparin Protocol) 104.2 H VBG pH VBG pCO2 VBG pO2 VBG HCO3 VBG O2 Saturation VBG Base Excess Anion Gap 17 Estim Creat Clear Calc 10.6 Estimated GFR 12 Random Glucose 96 Lactic Acid Calcium 8.7 Troponin I High Sens B-Natriuretic Peptide Random Vancomycin 06/30/21 06/30/21 06/30/21 06:02 06:02 06:02 MCV MCH MCHC RDW Plt Count MPV Absolute Nucleated RBC Nucleated RBC % (auto) PT 13.7 H INR 1.2 H PTT (Heparin Protocol) VBG pH VBG pCO2 VBG pO2 VBG HCO3 VBG O2 Saturation VBG Base Excess Anion Gap Estim Creat Clear Calc Estimated GFR Random Glucose Lactic Acid 0.9 Calcium Troponin I High Sens 32801.3 H* B-Natriuretic Peptide Random Vancomycin 06/30/21 06/30/21 06:07 09:27 MCV MCH MCHC RDW Plt Count MPV Absolute Nucleated RBC Nucleated RBC % (auto) PT INR PTT (Heparin Protocol) 50.5 L D VBG pH 7.39 VBG pCO2 37 VBG pO2 71 VBG HCO3 23 VBG O2 Saturation 92.0 VBG Base Excess -1.2 Anion Gap Estim Creat Clear Calc Estimated GFR Random Glucose Lactic Acid Calcium Troponin I High Sens B-Natriuretic Peptide Random Vancomycin Assessment and Plan (1) Aspiration pneumonia: Status: Acute (2) MRSA bacteremia: Status: Acute Assessment and Plan: 80-year-old female with past medical history significant for AFib on Eliquis, CHF who presents to the hospital with bleeding from a laceration her head found to have a large hematoma. NSTEMI troponin 90670 discussed with cardiology, started on heparin drip for 48 hours Follow EKG Echo pending Encephalopathy. More lethargic Normal ammonia ABG 7.29/51/91/24.7 discussed case with ICU, No need for ICU level at this time. Recheck VBG and BMP Brain CT negative for acute abnormality Acute hypoxic respiratory failure possibly secondary to heart failure and COVID and possible aspiration pneumonia At this point chest CT is not appearing not to be bacterial so will stop meropenem Will start lasix drip as CT showing pulmonary edema and BNP is up to 3400+ Oxygen saturation improved with supplemental oxygen, desats quickly on room air even at rest MRSA bacteremia BCx from 06/20/202106/07 culture positive for MRSA, repeat BCx negative x 48 hours unclear source echo Showed EF of 60-65% with no regional wall motion abnormalities will need 4 weeks IV abx on discharge per ID tuttle placed 06/26 LINDA on CKD stage 4:? 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 positive 2 weeks ago but continues to have cough monitor respiratory status CHF not in exacerbation and not on a diuretic AFib continue amiodarone hold apixaban given hematoma/anemia, likely hold for 14 days asymptomatic bacteriuria/pyuria:? ceftriaxone stopped. UCx growing klebsiella discussed with ID, no need for treatment, pt asymptomatic HTN continue hydralazine, norvasc nocturnal? hypoxia 2L o2 at night dvt ppx -mechanical devices; eliquis on hold for occipital fracture/hematoma Code status - Discussed with her daughter today regarding patients poor status at this point. She has decided to make the patient a DNR/DNI attending Dr. Dc Quality Stroke Does the patient have a stroke diagnosis?: No VTE Prior VTE?: No VTE Risk Level:: Medical - moderate - high VTE Device Contraindication: N/A - Device Ordered VTE Drug Contraindication: N/A - Med Ordered
--- NOTE | 2021-06-30 15:59 | PM.PNCARD ---
Subjective Subjective Date of Service: 06/30/21 <ROSARIO Mann - Last Filed: 06/30/21 16:16> 06/30/21 <Henrry Hernandez MD - Last Filed: 06/30/21 16:35> Principal diagnosis: LINDA, NSTEMI <ROSARIO Mann - Last Filed: 06/30/21 16:16> Interval history: Cardiology follow up for NSTEMI. Seen at 1100. Today she is observed resting in bed. She is sleeping, easily arousable but falls back asleep quickly. She denies feeling chest pains, sob, palpitations. Wearing O2 with nasal cannula. <ROSARIO Mann - Last Filed: 06/30/21 16:16> Review of Systems Review of Systems Limited responses due to medical conditon. <ROSARIO Mann - Last Filed: 06/30/21 16:16> Yes Unobtainable due to mental condition <ROSARIO Mann - Last Filed: 06/30/21 16:16> Physical Exam Vital Signs: Last Vital Signs Temp 99.1 F 06/30/21 15:20 Pulse 73 06/30/21 15:20 Resp 16 06/30/21 15:20 BP 108/61 06/30/21 15:20 Pulse Ox 98 06/30/21 15:20 BMI result Body Mass Index 31.6 <ROSARIO Mann - Last Filed: 06/30/21 16:16> Const Other: sleeping, mouth open - arouses and fall back asleep quickly. <ROSARIO Mann - Last Filed: 06/30/21 16:16> General: no acute distress <ROSARIO Mann - Last Filed: 06/30/21 16:16> Neck Neck: Yes normal visual inspection and Yes no JVD <ROSARIO Mann - Last Filed: 06/30/21 16:16> Resp Other: dim bases, no distinct rales noted <ROSARIO Mann - Last Filed: 06/30/21 16:16> Effort & Inspection: normal respiratory effort, able to speak in complete sentences and not labored <ADALI MannC - Last Filed: 06/30/21 16:16> Auscultation: clear to auscultation bilaterally, no rales, no rhonchi and no wheezes <ROSARIO Mann - Last Filed: 06/30/21 16:16> Cardio Palpation: normal PMI <ADALI Mann - Last Filed: 06/30/21 16:16> Rate: regular rate <ADALI Mann - Last Filed: 06/30/21 16:16> Rhythm: regular rhythm <ADALI Mann - Last Filed: 06/30/21 16:16> Heart sounds: S1 normal heart sound present and S2 normal heart sound present <ADALI Mann - Last Filed: 06/30/21 16:16> Peripheral pulses: Peripheral pulses 2+ throughout <ADALI Mann - Last Filed: 06/30/21 16:16> GI Inspection: Yes normal to inspection <ADALI MannC - Last Filed: 06/30/21 16:16> Extrem General: No edema <ADALI MannC - Last Filed: 06/30/21 16:16> Objective Labs and Meds Result diagrams: : 06/30/21 06:02 06/30/21 06:02 <ADALI Mann - Last Filed: 06/30/21 16:16> Lab results: Laboratory Results - last 24 hr 06/29/21 06/29/21 06/29/21 16:47 16:47 16:47 WBC RBC Hgb Hct MCV MCH MCHC RDW Plt Count MPV Absolute Nucleated RBC Nucleated RBC % (auto) PT INR PTT (Heparin Protocol) VBG pH VBG pCO2 VBG pO2 VBG HCO3 VBG O2 Saturation VBG Base Excess Sodium 144 Potassium 5.2 H Chloride 109 H Carbon Dioxide 25 Anion Gap 15 BUN 61 H Creatinine 3.94 H Estim Creat Clear Calc 10.0 Estimated GFR 11 Random Glucose 102 Lactic Acid Calcium 8.7 Troponin I High Sens 44063.0 H* D B-Natriuretic Peptide 3465 H Random Vancomycin 17.0 06/29/21 06/29/21 06/29/21 16:52 19:24 19:24 WBC 9.9 RBC 2.74 L Hgb 8.3 L Hct 27.5 L MCV 100.4 H MCH 30.3 MCHC 30.2 L RDW 14.4 Plt Count 119 L MPV 11.7 Absolute Nucleated RBC 0.000 Nucleated RBC % (auto) 0.0 PT Cancelled INR Cancelled PTT (Heparin Protocol) Cancelled VBG pH 7.32 VBG pCO2 50 VBG pO2 65 VBG HCO3 26 VBG O2 Saturation 91.0 VBG Base Excess 0.3 Sodium Potassium Chloride Carbon Dioxide Anion Gap BUN Creatinine Estim Creat Clear Calc Estimated GFR Random Glucose Lactic Acid Calcium Troponin I High Sens B-Natriuretic Peptide Random Vancomycin 06/30/21 06/30/21 06/30/21 02:46 06:02 06:02 WBC 9.6 RBC 2.82 L Hgb 8.3 L Hct 27.6 L MCV 97.9 MCH 29.4 MCHC 30.1 L RDW 14.0 Plt Count 136 L MPV 11.7 Absolute Nucleated RBC 0.000 Nucleated RBC % (auto) 0.0 PT INR PTT (Heparin Protocol) 104.2 H VBG pH VBG pCO2 VBG pO2 VBG HCO3 VBG O2 Saturation VBG Base Excess Sodium 146 H Potassium 4.6 Chloride 110 H Carbon Dioxide 24 Anion Gap 17 BUN 65 H Creatinine 3.72 H Estim Creat Clear Calc 10.6 Estimated GFR 12 Random Glucose 96 Lactic Acid Calcium 8.7 Troponin I High Sens B-Natriuretic Peptide Random Vancomycin 06/30/21 06/30/21 06/30/21 06:02 06:02 06:02 WBC RBC Hgb Hct MCV MCH MCHC RDW Plt Count MPV Absolute Nucleated RBC Nucleated RBC % (auto) PT 13.7 H INR 1.2 H PTT (Heparin Protocol) VBG pH VBG pCO2 VBG pO2 VBG HCO3 VBG O2 Saturation VBG Base Excess Sodium Potassium Chloride Carbon Dioxide Anion Gap BUN Creatinine Estim Creat Clear Calc Estimated GFR Random Glucose Lactic Acid 0.9 Calcium Troponin I High Sens 14717.3 H* B-Natriuretic Peptide Random Vancomycin 06/30/21 06/30/21 06:07 09:27 WBC RBC Hgb Hct MCV MCH MCHC RDW Plt Count MPV Absolute Nucleated RBC Nucleated RBC % (auto) PT INR PTT (Heparin Protocol) 50.5 L D VBG pH 7.39 VBG pCO2 37 VBG pO2 71 VBG HCO3 23 VBG O2 Saturation 92.0 VBG Base Excess -1.2 Sodium Potassium Chloride Carbon Dioxide Anion Gap BUN Creatinine Estim Creat Clear Calc Estimated GFR Random Glucose Lactic Acid Calcium Troponin I High Sens B-Natriuretic Peptide Random Vancomycin <ROSARIO Mann - Last Filed: 06/30/21 16:16> Imaging Radiologist's impression: Impressions Chest CT 06/29/21 19:23 IMPRESSION: Cardiomegaly with interstitial edema, pulmonary venous congestion, and small effusions, consistent with CHF. There is significant dependent atelectasis bilaterally superimposed areas of consolidation are possible, but felt to be less likely. Fleischner guidelines were followed. <ROSARIO Mann - Last Filed: 06/30/21 16:16> Progress Note: A&P Assessment and plan (1) NSTEMI (non-ST elevated myocardial infarction): Status: Acute <ROSARIO Mann - Last Filed: 06/30/21 16:16> Assessment and Plan: Admit after fall with scalp hematoma, COVID+. Troponins initially mildly elevated. Echo done 06/26 showed normal EF, no regional WMA, Bio AVR functioning normally. She had reported some vague chest discomfort early this admit. Yesterday was noted to have increased lethargy, no report of CP. Troponin recheck showed large increase, up to 31,279 ( prior trop on 06/27 was 183). [place] [id number] today. She was started on Heparin drip for anticoagulation. She was continued on atorvastatin, imdur. EKG done today shows SR, T wave inversions leads I, aVL, Q wave present anteroseptal leads which are unchanged from prior EKG. Limited echo ordered to reassess EF, wall motion. Based on results, will determine best plan of care. Not a good candidate for invasive testing/ cardiac cath at present due to multi comorbidities including COVID, anemia, CKD with Cr 3.72 today. Continue to managed medically for now. Continue Heparin drip for 48 hrs. Follow CBC. We will follow. <ROSARIO Mann - Last Filed: 06/30/21 16:16> Admit after fall with scalp hematoma, COVID+. Troponins initially mildly elevated. Echo done 06/26 showed normal EF, no regional WMA, Bio AVR functioning normally. She had reported some vague chest discomfort early this admit. Yesterday was noted to have increased lethargy, no report of CP. Troponin recheck showed large increase, up to 31,279 ( prior trop on 06/27 was 183). [place] [id number] today. She was started on Heparin drip for anticoagulation. She was continued on atorvastatin, imdur. EKG done today shows SR, T wave inversions leads I, aVL, Q wave present anteroseptal leads which are unchanged from prior EKG. Limited echo ordered to reassess EF, wall motion. Based on results, will determine best plan of care. Not a good candidate for invasive testing/ cardiac cath at present due to multi comorbidities including COVID, anemia, CKD with Cr 3.72 today. Continue to managed medically for now. Continue Heparin drip for 48 hrs. Follow CBC. We will follow. Case discussed with Marzena Degroot. Patient with markedly elevated troponin and recent change in mental status as well as sudden shortness of breath. EKG showed changes consistent with anteroseptal RI. Most likely LAD territory myocardial infarction. She has multiple comorbidities and worsening renal function. Management will be medical. Continue IV heparin for 48 hours. Overall prognosis is guarded. Could be embolic in nature given stoppage of her oral anticoagulation. Resume Eliquis once medically stable. Low-dose aspirin therapy. She does have underlying significant coronary artery disease from before. Not a candidate for invasive cardiac catheterization at this point in time. <Henrry Hernandez MD - Last Filed: 06/30/21 16:35> (2) Chest pain: Status: Acute <ROSARIO Mann - Last Filed: 06/30/21 16:16> Assessment and Plan: Denies having CP today. Did report some early this admit. <ROSARIO Mann - Last Filed: 06/30/21 16:16> (3) Hypoxia: Status: Acute <ROSARIO Mann - Last Filed: 06/30/21 16:16> Assessment and Plan: Hypoxic respiratory failure requiring oxygen therapy. CT scan finding consistent with pulmonary edema most likely related to recent RI. Continue IV diuresis with Lasix drip. Strict intake and output chart needs to be pursued. Continue to monitor renal function closely as she has waxing and waning renal function. Overall prognosis is guarded. Continue supportive care. <Henrry Hernandez MD - Last Filed: 06/30/21 16:35> (4) Paroxysmal atrial fibrillation: Status: Acute <ROSARIO Mann - Last Filed: 06/30/21 16:16> Assessment and Plan: Longstanding paroxysmal atrial fibrillation has done very well with rhythm control approach will continue to pursue rhythm control approach. Currently in sinus rhythm. Continue low-dose amiodarone therapy. Once heparin has been discontinued, pursue oral therapy with Eliquis as before at a lower dose of 2.5 mg b.i.d. <Henrry Hernandez MD - Last Filed: 06/30/21 16:35> Fall Risk Details Current Medications: Current Medications Acetaminophen (Acetaminophen 325 Mg Tablet) 650 mg PO Q6H PRN PRN Reason: Pain, Mild (Pain Scale 1-3) Last Admin: 06/25/21 21:40 Dose: 650 mg Documented by: Albuterol Sulfate (Albuterol Sulfate 90 Mcg 8 Gm Inhaler) 2 puff INHALE Q6H PRN PRN Reason: Wheezing Albuterol/Ipratropium (Albuterol/Iprat 2.5/0.5mg 3 Ml Ampul.Neb) 3 ml INHALE RQ4H WHILE AWAKE [facility] Last Admin: 06/30/21 12:00 Dose: 3 ml Documented by: Amiodarone HCl (Amiodarone Hcl 200 Mg Tablet) 200 mg PO DAILY [facility] Last Admin: 06/30/21 12:03 Dose: Not Given Documented by: Amlodipine Besylate (Amlodipine Besylate 10 Mg Tablet) 10 mg PO DAILY [facility]; Protocol Last Admin: 06/30/21 12:03 Dose: Not Given Documented by: Atorvastatin Calcium (Atorvastatin Calcium 20 Mg Tablet) 20 mg PO DAILY [facility] Last Admin: 06/30/21 12:04 Dose: Not Given Documented by: Calcitriol (Calcitriol 0.25 Mcg Capsule) 0.25 mcg PO Q2D [facility] Last Admin: 06/29/21 11:10 Dose: Not Given Documented by: Dexamethasone Sodium Phosphate (Dexamethasone Sod Phosphate 4 Mg/Ml Vial) 6 mg IVPUSH DAILY [facility] Stop: 07/09/21 09:01 Last Admin: 06/30/21 11:44 Dose: 6 mg Documented by: Docusate Sodium (Docusate Sodium 100 Mg Capsule) 100 mg PO DAILY PRN PRN Reason: Constipation Ferrous Sulfate (Ferrous Sulfate 324 Mg Tablet.Dr) 324 mg PO DAILY [facility] Last Admin: 06/30/21 12:04 Dose: Not Given Documented by: Heparin Sodium (Porcine) (Heparin Sodium,Porcine 5,000 Unit/Ml Vial) 2,800 unit 40 unit/kg (2800 unit) IVPUSH PROTOCOL BOLUS PRN; Protocol PRN Reason: 40 unit/kg - Heparin Protocol Last Admin: 06/30/21 10:57 Dose: 2,800 unit Documented by: Heparin Sodium (Porcine) (Heparin Sodium,Porcine 5,000 Unit/Ml Vial) 5,700 unit 80 unit/kg (5700 unit) IVPUSH PROTOCOL BOLUS PRN; Protocol PRN Reason: 80 unit/kg - Heparin Protocol Vancomycin HCl 750 mg/ Sodium (Chloride) 265 mls @ 265 mls/hr IV Q48H [facility] Last Infusion: 06/29/21 21:01 Dose: Infused Documented by: Heparin Sodium/Sodium Chloride () 25,000 unit in 250 mls @ 0 mls/hr IVCONT .Q0M [facility]; Protocol Last Titration: 06/30/21 10:59 Dose: 13 units/kg/hr, 9.22 mls/hr Documented by: Furosemide 200 mg/ Sodium (Chloride) 100 mls @ 5 mls/hr IVCONT .Q20H [facility] Isosorbide Mononitrate (Isosorbide Mononitrate 60 Mg Tab.Er.24h) 60 mg PO DAILY [facility]; Protocol Last Admin: 06/30/21 12:04 Dose: Not Given Documented by: Meclizine HCl (Meclizine Hcl 25 Mg Tablet) 25 mg PO DAILY PRN PRN Reason: Vertigo Nitroglycerin (Nitroglycerin 0.4 Mg Tab.Subl) 0.4 mg SUBLINGUAL Q5M PRN PRN Reason: chest pain Patient Own Med( Memantine [Namenda Xr] 21 Mg Capsule) 1 each PO DAILY [facility] Last Admin: 06/30/21 12:05 Dose: Not Given Documented by: Nystatin (Nystatin Powder 15 Gm Bottle) 1 appl TOPICAL BID [facility]; Protocol Last Admin: 06/30/21 11:46 Dose: 1 appl Documented by: Omeprazole (Omeprazole 20 Mg Capsule.) 20 mg PO DAILY@0630 [facility] Last Admin: 06/30/21 05:44 Dose: Not Given Documented by: Ondansetron HCl (Ondansetron Hcl 4 Mg/2 Ml Vial) 4 mg IVPUSH Q8H PRN PRN Reason: Nausea and Vomiting Last Admin: 06/27/21 06:08 Dose: 4 mg Documented by: Pregabalin (Pregabalin 50 Mg Capsule) 50 mg PO TID [facility] Last Admin: 06/30/21 12:05 Dose: Not Given Documented by: Rivastigmine Tartrate (Rivastigmine Tartrate 6 Mg Capsule) 6 mg PO BID [facility] Last Admin: 06/30/21 12:05 Dose: Not Given Documented by: Sertraline HCl (Sertraline Hcl 100 Mg Tablet) 100 mg PO DAILY [facility] Last Admin: 06/30/21 12:05 Dose: Not Given Documented by: Sodium Chloride (0.9 % Sodium Chloride Flush 3 Ml Syringe) 3 ml IVFLUSH QSHIFT [facility] Last Admin: 06/30/21 11:43 Dose: 3 ml Documented by: Vitamin D (Cholecalciferol (Vitamin D3) 25 Mcg Tablet) 50 mcg PO DAILY [facility] Last Admin: 06/30/21 12:04 Dose: Not Given Documented by: <ROSARIO Mann - Last Filed: 06/30/21 16:16> Time Spent With Patient Time: Total time spent is greater than 50% in coordination of care (as documented) at patient's floor/unit and/or counseling patient: <ROSARIO Mann - Last Filed: 06/30/21 16:16> Time with patient: 15 - 24 minutes <ROSARIO Mann - Last Filed: 06/30/21 16:16> Progress Note: Quality Stroke Does the patient have a stroke diagnosis?: No <ROSARIO Mann - Last Filed: 06/30/21 16:16> Procedures Date of Service Date of Service: 06/30/21 <ROSARIO Mann - Last Filed: 06/30/21 16:16>
[2021-06-30 16:37] LABS: Vancomycin Random 18.4 mcg/mL (15-20)
[2021-06-30] MEDS: Furosemide 200 MG in 0.9 % Sodium Chloride 80 ML IVCONT (18:05)
[2021-06-30 18:09] LABS: PTT Heparin Drip 52.1 SEC (53-77.9)
[2021-06-30] MEDS: Heparin Sodium,Porcine/1/2NS 25,000 UNIT/250 ML IV.SOLN 9.22 UNIT IVCONT (18:27)
--- NOTE | 2021-06-30 18:52 | PC.NURSE ---
Pt alert and oriented x2-3 but with some confusion at times. Pt is on Heparin drip running at 13units/kg/hr for a PTT of 50.2. Pt was bolused and rate changed. At 1830 PTT of 52.1. Pt bolused with 2800units and rate changed to 15units/kg/hr running at 10.64ml/hr. Next PTT draw will be at 0030. Orders put in Comp.Pt aslo started on Lasix drip at 10mg/hr. LS dim woth coarse crackles to the bases. Pt continues with 8L O2 via Cuellar and Nebulizer treatments. Pt has jv junky cough. Pt is NSR on tele with HR in the 80s.
--- NOTE | 2021-06-30 21:23 | PC.NURSE ---
Pt alert and oriented x3, Denies pain or discomfort. Encouraged to get out of bed but refused. Right Diabetic foot ulcer wound cleansed and dressing changed. Blood sugars well controlled. No insulin required.
[2021-07-01] VITALS (9 sets, daily range): BP systolic 93–150; BP diastolic 55–82; PULSE 61–85; RESP 14–19; TEMP 36.2–37.1; O2SAT 95–99
[2021-07-01 00:41] LABS: PTT Heparin Drip 92.7 SEC (53-77.9)
[2021-07-01] MEDS: Albuterol/Iprat 2.5/0.5MG 3 ML AMPUL.NEB INHALE ×3 (07:50→19:12)
[2021-07-01 08:43] LABS: PTT Heparin Drip 69.3 SEC (53-77.9)
[2021-07-01 08:50] LABS: B Type Natriuretic Peptide 4469 pg/mL (<100)
[2021-07-01 08:55] LABS: Anion Gap 19 (12-20); Blood Urea Nitrogen 77 mg/dL (9-16); Calcium 9.1 mg/dL (8.4-10.2); Carbon Dioxide 24 mmol/L (22-29); Chloride 109 mmol/L (96-108); Creatinine Clr Calc Pharmacy 11.1; Estimated Glomerular Filt Rate 12; Glucose Random 137 mg/dL (60-115); Potassium 4.5 mmol/L (3.3-5.1); Sodium 147 mmol/L (135-145)
[2021-07-01] MEDS: Pregabalin 50 MG CAPSULE PO ×3 (09:03→21:19)
[2021-07-01] MEDS: Cholecalciferol (Vitamin D3) 25 MCG TABLET 50 MCG PO (09:03)
[2021-07-01] MEDS: Atorvastatin Calcium 20 MG TABLET PO (09:04)
[2021-07-01] MEDS: Amiodarone HCL 200 MG TABLET PO (09:04)
[2021-07-01] MEDS: Ferrous Sulfate 324 MG TABLET.DR PO (09:04)
[2021-07-01] MEDS: Isosorbide Mononitrate 60 MG TAB.ER.24H PO (09:04)
[2021-07-01] MEDS: dexAMETHasone sod phosphate 4 MG/ML VIAL 6 MG IVPUSH (09:04)
[2021-07-01] MEDS: Sertraline HCL 100 MG TABLET PO (09:04)
[2021-07-01] MEDS: amLODIPine Besylate 10 MG TABLET PO (09:04)
[2021-07-01] MEDS: Nystatin Powder 15 GM BOTTLE 1 APPL TOPICAL ×2 (09:05→21:19)
[2021-07-01] MEDS: 0.9 % Sodium Chloride Flush 3 ML SYRINGE IVFLUSH ×2 (09:05→16:02)
[2021-07-01] MEDS: calcitrioL 0.25 MCG CAPSULE PO (09:06)
--- NOTE | 2021-07-01 09:50 | P.PNIM_ITS ---
Subjective Subjective Date of Service: 07/01/21 Review of Systems Follow up Hyperkalemia, encephalopathy Actually looking much better today awake and eating breakfast with assist denied pain Physical Exam Verdana 4l Vital Signs: Verdana 4d Verdana 4d Vital Signs: Verdana 4d Verdana 4Bd Last Vital Signs Verdana 4d Frozen Food Selector New 4d Frozen Food Selector New 4d Temp 98.3 F 07/01/21 08:00 Frozen Food Selector New 4d Pulse 85 07/01/21 08:00 Frozen Food Selector New 4d Resp 16 07/01/21 08:00 BP 150/82 H 07/01/21 08:00 Pulse Ox 95 07/01/21 08:00 BMI result Body Mass Index 31.6 Const: Other: Appearing in no acute distress lung sounds are clear to auscultation heart regular rate rhythm, clear S1, S2 positive bowel sounds, abdomen is soft, nontender neuro patient alert and more awake Objective Data Active Medications Acetaminophen (Acetaminophen 325 Mg Tablet) 650 mg PO Q6H PRN PRN Reason: Pain, Mild (Pain Scale 1-3) Last Admin: 06/25/21 21:40 Dose: 650 mg Documented by: PRATIMA Albuterol Sulfate (Albuterol Sulfate 90 Mcg 8 Gm Inhaler) 2 puff INHALE Q6H PRN PRN Reason: Wheezing Albuterol/Ipratropium (Albuterol/Iprat 2.5/0.5mg 3 Ml Ampul.Neb) 3 ml INHALE RQ4H WHILE AWAKE [facility] Last Admin: 07/01/21 07:50 Dose: 3 ml Documented by: HUA Amiodarone HCl (Amiodarone Hcl 200 Mg Tablet) 200 mg PO DAILY [facility] Last Admin: 07/01/21 09:04 Dose: 200 mg Documented by: WINSOME Amlodipine Besylate (Amlodipine Besylate 10 Mg Tablet) 10 mg PO DAILY [facility]; Protocol Last Admin: 07/01/21 09:04 Dose: 10 mg Documented by: WINSOME Atorvastatin Calcium (Atorvastatin Calcium 20 Mg Tablet) 20 mg PO DAILY [facility] Last Admin: 07/01/21 09:04 Dose: 20 mg Documented by: WINSOME Calcitriol (Calcitriol 0.25 Mcg Capsule) 0.25 mcg PO Q2D [facility] Last Admin: 07/01/21 09:06 Dose: 0.25 mcg Documented by: WINSOME Dexamethasone Sodium Phosphate (Dexamethasone Sod Phosphate 4 Mg/Ml Vial) 6 mg IVPUSH DAILY [facility] Stop: 07/09/21 09:01 Last Admin: 07/01/21 09:04 Dose: 6 mg Documented by: WINSOME Docusate Sodium (Docusate Sodium 100 Mg Capsule) 100 mg PO DAILY PRN PRN Reason: Constipation Ferrous Sulfate (Ferrous Sulfate 324 Mg Tablet.Dr) 324 mg PO DAILY [facility] Last Admin: 07/01/21 09:04 Dose: 324 mg Documented by: WINSOME Heparin Sodium (Porcine) (Heparin Sodium,Porcine 5,000 Unit/Ml Vial) 2,800 unit 40 unit/kg (2800 unit) IVPUSH PROTOCOL BOLUS PRN; Protocol PRN Reason: 40 unit/kg - Heparin Protocol Last Admin: 06/30/21 18:26 Dose: 2,800 unit Documented by: CHRISTOPHER Comments: Heparin Sodium (Porcine) (Heparin Sodium,Porcine 5,000 Unit/Ml Vial) 5,700 unit 80 unit/kg (5700 unit) IVPUSH PROTOCOL BOLUS PRN; Protocol PRN Reason: 80 unit/kg - Heparin Protocol Vancomycin HCl 750 mg/ Sodium (Chloride) 265 mls @ 265 mls/hr IV Q48H [facility] Last Infusion: 06/29/21 21:01 Dose: 0 mls/hr Documented by: FRAN Heparin Sodium/Sodium Chloride () 25,000 unit in 250 mls @ 0 mls/hr IVCONT .Q0M [facility]; Protocol Last Titration: 07/01/21 09:08 Dose: 13 units/kg/hr, 9.22 mls/hr Documented by: WINSOME Cosigned by: FATUMA Furosemide 200 mg/ Sodium (Chloride) 100 mls @ 5 mls/hr IVCONT .Q20H [facility] Last Admin: 06/30/21 18:05 Dose: 10 mg/hr, 5 mls/hr Documented by: CHRISTOPHER Isosorbide Mononitrate (Isosorbide Mononitrate 60 Mg Tab.Er.24h) 60 mg PO DAILY [facility]; Protocol Last Admin: 07/01/21 09:04 Dose: 60 mg Documented by: WINSOME Meclizine HCl (Meclizine Hcl 25 Mg Tablet) 25 mg PO DAILY PRN PRN Reason: Vertigo Nitroglycerin (Nitroglycerin 0.4 Mg Tab.Subl) 0.4 mg SUBLINGUAL Q5M PRN PRN Reason: chest pain Patient Own Med( Memantine [Namenda Xr] 21 Mg Capsule) 1 each PO DAILY [facility] Last Admin: 07/01/21 09:05 Dose: 1 each Documented by: WINSOME Nystatin (Nystatin Powder 15 Gm Bottle) 1 appl TOPICAL BID [facility]; Protocol Last Admin: 07/01/21 09:05 Dose: 1 appl Documented by: WINSOME Omeprazole (Omeprazole 20 Mg Capsule.Dr) 20 mg PO DAILY@0630 [facility] Last Admin: 07/01/21 06:08 Dose: Not Given Documented by: BENNY Non-Admin Reason: NPO Ondansetron HCl (Ondansetron Hcl 4 Mg/2 Ml Vial) 4 mg IVPUSH Q8H PRN PRN Reason: Nausea and Vomiting Last Admin: 06/27/21 06:08 Dose: 4 mg Documented by: GIOVANNI Pregabalin (Pregabalin 50 Mg Capsule) 50 mg PO TID [facility] Last Admin: 07/01/21 09:03 Dose: 50 mg Documented by: WINSOME Rivastigmine Tartrate (Rivastigmine Tartrate 6 Mg Capsule) 6 mg PO BID [facility] Last Admin: 07/01/21 09:04 Dose: 6 mg Documented by: WINSOME Sertraline HCl (Sertraline Hcl 100 Mg Tablet) 100 mg PO DAILY [facility] Last Admin: 07/01/21 09:04 Dose: 100 mg Documented by: WINSOME Sodium Chloride (0.9 % Sodium Chloride Flush 3 Ml Syringe) 3 ml IVFLUSH QSHIFT [facility] Last Admin: 07/01/21 09:05 Dose: 3 ml Documented by: WINSOME Vitamin D (Cholecalciferol (Vitamin D3) 25 Mcg Tablet) 50 mcg PO DAILY [facility] Last Admin: 07/01/21 09:03 Dose: 50 mcg Documented by: WINSOME Labs CBC & Chem 7: 06/30/21 06:02 07/01/21 08:16 Labs: Laboratory Results - last 24 hr 06/30/21 06/30/21 06/30/21 09:27 15:46 17:41 PTT (Heparin Protocol) 50.5 L D 52.1 L Anion Gap Estim Creat Clear Calc Estimated GFR Random Glucose Calcium Troponin I High Sens B-Natriuretic Peptide Random Vancomycin 18.4 07/01/21 07/01/21 07/01/21 00:25 08:16 08:16 PTT (Heparin Protocol) 92.7 H D Anion Gap 19 Estim Creat Clear Calc 11.1 Estimated GFR 12 Random Glucose 137 H Calcium 9.1 Troponin I High Sens 56307.3 H* B-Natriuretic Peptide Random Vancomycin 07/01/21 07/01/21 08:16 08:16 PTT (Heparin Protocol) 69.3 D Anion Gap Estim Creat Clear Calc Estimated GFR Random Glucose Calcium Troponin I High Sens B-Natriuretic Peptide 4469 H Random Vancomycin Microbiology Microbiology Results: Microbiology 06/30/21 06:02 Blood Culture - Preliminary Blood - Venous No growth after 24 hours. 06/30/21 05:55 Blood Culture - Preliminary Blood - Venous No growth after 24 hours. Assessment and Plan (1) Aspiration pneumonia: Status: Acute (2) MRSA bacteremia: Status: Acute Plan 80-year-old female with past medical history significant for AFib on Eliquis, CHF who presents to the hospital with bleeding from a laceration her head found to have a large hematoma. NSTEMI troponin trending down discussed with cardiology, started on heparin drip for 48 hours, stop today Follow EKG Echo pending Encephalopathy. More alert today Normal ammonia ABG 7.29/51/91/24.7 discussed case with ICU, No need for ICU level at this time. Recheck VBG if no improvement Brain CT negative for acute abnormality Acute hypoxic respiratory failure possibly secondary to heart failure and COVID and possible aspiration pneumonia At this point chest CT is not appearing not to be bacterial so will stop meropenem Will start lasix drip as CT showing pulmonary edema and BNP is up to 3400+ Oxygen saturation improved with supplemental oxygen, desats quickly on room air even at rest MRSA bacteremia BCx from 06/20/2021 1 culture positive for MRSA, repeat BCx negative x 48 hours unclear source echo Showed EF of 60-65% with no regional wall motion abnormalities will need 4 weeks IV abx on discharge per ID tuttle placed 06/26 LINDA on CKD stage 4. slowly improving worsening creatinine, possibly secondary to heart failure will continue to diurese and follow renal function closely nephro following Acute blood loss anemia secondary to hematoma s/p 2 units of PRBC stool occult blood negative H/H stable Eliquis on hold hematoma of the head patient had a mechanical fall 3 weeks [employer], now has CT showing large central and right occipital hematoma with laceration and nondisplaced left occipital fracture consult General surgery-Recommend observation of the hematoma off anticoagulation COVID positive no hypoxia. positive 2 weeks ago but continues to have cough monitor respiratory status CHF not in exacerbation and not on a diuretic AFib continue amiodarone hold apixaban given hematoma/anemia, likely hold for 14 days asymptomatic bacteriuria/pyuria:? ceftriaxone stopped. UCx growing klebsiella discussed with ID, no need for treatment, pt asymptomatic HTN continue hydralazine, norvasc nocturnal? hypoxia 2L o2 at night dvt ppx -mechanical devices; eliquis on hold for occipital fracture/hematoma Code status - Discussed with her daughter today regarding patients poor status at this point. She has decided to make the patient a DNR/DNI attending Dr. Dc Quality Stroke Does the patient have a stroke diagnosis?: No VTE Prior VTE?: No VTE Risk Level:: Medical - moderate - high VTE Device Contraindication: N/A - Device Ordered VTE Drug Contraindication: N/A - Med Ordered
--- NOTE | 2021-07-01 11:28 | P.PNCA_ITS ---
Subjective Subjective Date of Service: 07/01/21 <ROSARIO Mann - Last Filed: 07/01/21 11:48> 07/01/21 <Henrry Hernandez MD - Last Filed: 07/01/21 12:27> Principal diagnosis: LINDA, NSTEMI <ROSARIO Mann - Last Filed: 07/01/21 11:48> Interval history: Cardiology follow-up for NSTEMI. Seen at 10:00. Today she is observed resting in bed, sleeping, easily arousable but does follow-up sleep quickly. She does deny having chest pain, shortness of breath or palpitations. Heparin drip and Lasix drip infusing. <ROSARIO Mann - Last Filed: 07/01/21 11:48> Review of Systems Review of Systems As above <ROSARIO Mann - Last Filed: 07/01/21 11:48> Yes Unobtainable due to mental condition <ROSARIO Mann - Last Filed: 07/01/21 11:48> Physical Exam Vital Signs: Last Vital Signs Temp 97.4 F 07/01/21 11:17 Pulse 82 07/01/21 11:17 Resp 16 07/01/21 11:17 BP 134/79 07/01/21 11:17 Pulse Ox 95 07/01/21 11:17 BMI result Verdana 4 Body Mass Index Verdana 4 31.6 Verdana 4 Verdana 4 <ROSARIO Mann - Last Filed: 07/01/21 11:48> Const Other: Sleepy, easily arousable. answers limited questions seemingly appropriately and then falls back asleep <ROSARIO Mann - Last Filed: 07/01/21 11:48> General: no acute distress <ROSARIO Mann Last Filed: 07/01/21 11:48> Orientation/consciousness: patient oriented x3 <ROSARIO Mann Last Filed: 07/01/21 11:48> Neck Neck: Yes normal visual inspection and Yes no JVD <ROSARIO Mann - Last Filed: 07/01/21 11:48> Resp Other: fine rales in bases <ADALI MannC - Last Filed: 07/01/21 11:48> Effort & Inspection: normal respiratory effort and not labored <ADALI MannC - Last Filed: 07/01/21 11:48> Auscultation: clear to auscultation bilaterally, no rhonchi and no wheezes <ADALI MannC - Last Filed: 07/01/21 11:48> Cardio Rate: regular rate <Marzena Degroot NPC - Last Filed: 07/01/21 11:48> Rhythm: regular rhythm <Marzena ADALI eDgrootC - Last Filed: 07/01/21 11:48> Heart sounds: S1 normal heart sound present and S2 normal heart sound present <ADALI MannC - Last Filed: 07/01/21 11:48> Peripheral pulses: Peripheral pulses 2+ throughout <Marzena Degroot NP-C - Last Filed: 07/01/21 11:48> GI Inspection: Yes normal to inspection <Marzena Degroot NP-C - Last Filed: 07/01/21 11:48> Neuro General: patient oriented x3 <ADALI MannC - Last Filed: 07/01/21 11:48> Extrem General: Yes normal to inspection and No edema <Marzena Degroot NP-C - Last Filed: 07/01/21 11:48> Objective Labs and Meds Result diagrams: : 06/30/21 06:02 07/01/21 08:16 <Marzena Degroot NPC - Last Filed: 07/01/21 11:48> Lab results: Laboratory Results - last 24 hr 06/30/21 06/30/21 07/01/21 15:46 17:41 00:25 PTT (Heparin Protocol) 52.1 L 92.7 H D Sodium Potassium Chloride Carbon Dioxide Anion Gap BUN Creatinine Estim Creat Clear Calc Estimated GFR Random Glucose Calcium Troponin I High Sens B-Natriuretic Peptide Random Vancomycin 18.4 07/01/21 07/01/21 07/01/21 08:16 08:16 08:16 PTT (Heparin Protocol) Sodium 147 H Potassium 4.5 Chloride 109 H Carbon Dioxide 24 Anion Gap 19 BUN 77 H Creatinine 3.56 H Estim Creat Clear Calc 11.1 Estimated GFR 12 Random Glucose 137 H Calcium 9.1 Troponin I High Sens 93614.3 H* B-Natriuretic Peptide 4469 H Random Vancomycin 07/01/21 08:16 PTT (Heparin Protocol) 69.3 D Sodium Potassium Chloride Carbon Dioxide Anion Gap BUN Creatinine Estim Creat Clear Calc Estimated GFR Random Glucose Calcium Troponin I High Sens B-Natriuretic Peptide Random Vancomycin <ROSARIO Mann - Last Filed: 07/01/21 11:48> Progress Note: A&P Assessment and plan (1) NSTEMI (non-ST elevated myocardial infarction): Status: Acute <ROSARIO Mann - Last Filed: 07/01/21 11:48> Assessment and Plan: NSTEMI this admit. Troponins up to 31,279 on 06/29, trending down since then. Echo done 06/26 showed normal EF, no regional WMA, Bio AVR functioning normally. - Limited echo done yesterday, According to Dr Hernandez, EF has reduced. EKG done yesterday shows SR, T wave inversions leads I, aVL, Q wave present anteroseptal leads which are unchanged from prior EKG.She is not a good candid ate for invasive testing/ cardiac cath at present due to multi comorbidities including COVID, anemia, CKD with Cr 3.56 today. She is on Heparin drip for anticoagulation, which can be stopped after 48 hrs. She was continued on atorvastatin, imdur. Pt is lethargic, she does deny CP. Hospitalist note indicates she was made DNR/ DNI yest. Dr Hernandez plans to discuss comfort care with family. <ROSARIO Mann - Last Filed: 07/01/21 11:48> NSTEMI this admit. Troponins up to 31,279 on 06/29, trending down since then. Echo done 06/26 showed normal EF, no regional WMA, Bio AVR functioning normally. - Limited echo done yesterday, According to Dr Hernandez, EF has reduced. EKG done yesterday shows SR, T wave inversions leads I, aVL, Q wave present anteroseptal leads which are unchanged from prior EKG.She is not a good candidate for invasive testing/ cardiac cath at present due to multi comorbidities including COVID, anemia, CKD with Cr 3.56 today. She is on Heparin drip for anticoagulation, which can be stopped after 48 hrs. She was continued on atorvastatin, imdur. Pt is lethargic, she does deny CP. Hospitalist note indicates she was made DNR/ DNI yest. Dr Hernandez plans to discuss comfort care with family. Plan: Patient seen and case discussed with Marzena Degroot. Patient with significant NSTEMI with reduced LV ejection fraction, echo could not be read due to technical issues. Developed pulmonary edema related to the same. Has been diuresing gently, see below. Continue IV heparin for 1 more day. Low-dose aspirin therapy. Continue statin therapy. Continue to monitor CBC. Overall prognosis is guarded. <Henrry Hernandez MD - Last Filed: 07/01/21 12:27> (2) Hypoxia: Status: Acute <ROSARIO Mann - Last Filed: 07/01/21 11:48> Assessment and Plan: Being tx for COVID, aspiration PNA, CHF. Chest CT 06/29 with findings consistent with CHF. Was started on Lasix drip yesterday for diuresis. Slowly diuresing. Still requiring 5 liters O2 with nasal cannula, sat 95%. Cr down to 3.56, from 3.72. BNP further increased to 4469. Continue Lasix drip. Ongoing strict I+O monitoring, Close monitoring of electrolyte and kidney function with electrolyte replacement as warranted. <ROSARIO Mann - Last Filed: 07/01/21 11:48> Being tx for COVID, aspiration PNA, CHF. Chest CT 06/29 with findings consistent with CHF. Was started on Lasix drip yesterday for diuresis. Slowly diuresing. Still requiring 5 liters O2 with nasal cannula, sat 95%. Cr down to 3.56, from 3.72. BNP further increased to 4469. Continue Lasix drip. Ongoing strict I+O monitoring, Close monitoring of electrolyte and kidney function with electrolyte replacement as warranted. Findings consistent with pulmonary edema cardiogenic related to recent MS with prior history of heart failure. Continue IV diuresis. Creatinine is improved marginally. Continue to monitor renal function closely. Overall prognosis is very guarded. Will discuss with family about goals of therapy and care. <Henrry Hernandez MD - Last Filed: 07/01/21 12:27> (3) Aortic valve stenosis: Status: Acute <ROSARIO Mann - Last Filed: 07/01/21 11:48> Assessment and Plan: s/p TAVR <ROSARIO Mann - Last Filed: 07/01/21 11:48> (4) Paroxysmal atrial fibrillation: Status: Acute <ROSARIO Mann - Last Filed: 07/01/21 11:48> Assessment and Plan: Hx of PAF. Tele has been showing SR, controlled rates. Continues on Amiodarone for rhythm control. Normally on Eliquis for anticoagulation. Had mechanical fall prior to admit, with scalp hematoma, anemia. Hgb 8.3, stable. Currently on heparin drip. Plan to resume Eliquis once Heparin drip is d/c. Closely watch CBC. Ongoing tele monitoring. <ROSARIO Mann - Last Filed: 07/01/21 11:48> Fall Risk Details Current Medications: Current Medications Acetaminophen (Acetaminophen 325 Mg Tablet) 650 mg PO Q6H PRN PRN Reason: Pain, Mild (Pain Scale 1-3) Last Admin: 06/25/21 21:40 Dose: 650 mg Documented by: Albuterol Sulfate (Albuterol Sulfate 90 Mcg 8 Gm Inhaler) 2 puff INHALE Q6H PRN PRN Reason: Wheezing Albuterol/Ipratropium (Albuterol/Iprat 2.5/0.5mg 3 Ml Ampul.Neb) 3 ml INHALE RQ4H WHILE AWAKE [facility] Last Admin: 07/01/21 07:50 Dose: 3 ml Documented by: Amiodarone HCl (Amiodarone Hcl 200 Mg Tablet) 200 mg PO DAILY [facility] Last Admin: 07/01/21 09:04 Dose: 200 mg Documented by: Amlodipine Besylate (Amlodipine Besylate 10 Mg Tablet) 10 mg PO DAILY [facility]; Protocol Last Admin: 07/01/21 09:04 Dose: 10 mg Documented by: Atorvastatin Calcium (Atorvastatin Calcium 20 Mg Tablet) 20 mg PO DAILY [facility] Last Admin: 07/01/21 09:04 Dose: 20 mg Documented by: Calcitriol (Calcitriol 0.25 Mcg Capsule) 0.25 mcg PO Q2D [facility] Last Admin: 07/01/21 09:06 Dose: 0.25 mcg Documented by: Dexamethasone Sodium Phosphate (Dexamethasone Sod Phosphate 4 Mg/Ml Vial) 6 mg IVPUSH DAILY [facility] Stop: 07/09/21 09:01 Last Admin: 07/01/21 09:04 Dose: 6 mg Documented by: Docusate Sodium (Docusate Sodium 100 Mg Capsule) 100 mg PO DAILY PRN PRN Reason: Constipation Ferrous Sulfate (Ferrous Sulfate 324 Mg Tablet.Dr) 324 mg PO DAILY [facility] Last Admin: 07/01/21 09:04 Dose: 324 mg Documented by: Heparin Sodium (Porcine) (Heparin Sodium,Porcine 5,000 Unit/Ml Vial) 2,800 unit 40 unit/kg (2800 unit) IVPUSH PROTOCOL BOLUS PRN; Protocol PRN Reason: 40 unit/kg - Heparin Protocol Last Admin: 06/30/21 18:26 Dose: 2,800 unit Documented by: Heparin Sodium (Porcine) (Heparin Sodium,Porcine 5,000 Unit/Ml Vial) 5,700 unit 80 unit/kg (5700 unit) IVPUSH PROTOCOL BOLUS PRN; Protocol PRN Reason: 80 unit/kg - Heparin Protocol Vancomycin HCl 750 mg/ Sodium (Chloride) 265 mls @ 265 mls/hr IV Q48H [facility] Last Infusion: 06/29/21 21:01 Dose: Infused Documented by: Heparin Sodium/Sodium Chloride () 25,000 unit in 250 mls @ 0 mls/hr IVCONT .Q0M [facility]; Protocol Stop: 07/01/21 20:00 Last Titration: 07/01/21 09:08 Dose: 13 units/kg/hr, 9.22 mls/hr Documented by: Furosemide 200 mg/ Sodium (Chloride) 100 mls @ 5 mls/hr IVCONT .Q20H [facility] Last Admin: 06/30/21 18:05 Dose: 10 mg/hr, 5 mls/hr Documented by: Isosorbide Mononitrate (Isosorbide Mononitrate 60 Mg Tab.Er.24h) 60 mg PO DAILY [facility]; Protocol Last Admin: 07/01/21 09:04 Dose: 60 mg Documented by: Meclizine HCl (Meclizine Hcl 25 Mg Tablet) 25 mg PO DAILY PRN PRN Reason: Vertigo Nitroglycerin (Nitroglycerin 0.4 Mg Tab.Subl) 0.4 mg SUBLINGUAL Q5M PRN PRN Reason: chest pain Patient Own Med( Memantine [Namenda Xr] 21 Mg Capsule) 1 each PO DAILY [facility] Last Admin: 07/01/21 09:05 Dose: 1 each Documented by: Nystatin (Nystatin Powder 15 Gm Bottle) 1 appl TOPICAL BID [facility]; Protocol Last Admin: 07/01/21 09:05 Dose: 1 appl Documented by: Omeprazole (Omeprazole 20 Mg Capsule.Dr) 20 mg PO DAILY@0630 [facility] Last Admin: 07/01/21 06:08 Dose: Not Given Documented by: Ondansetron HCl (Ondansetron Hcl 4 Mg/2 Ml Vial) 4 mg IVPUSH Q8H PRN PRN Reason: Nausea and Vomiting Last Admin: 06/27/21 06:08 Dose: 4 mg Documented by: Pregabalin (Pregabalin 50 Mg Capsule) 50 mg PO TID [facility] Last Admin: 07/01/21 09:03 Dose: 50 mg Documented by: Rivastigmine Tartrate (Rivastigmine Tartrate 6 Mg Capsule) 6 mg PO BID [facility] Last Admin: 07/01/21 09:04 Dose: 6 mg Documented by: Sertraline HCl (Sertraline Hcl 100 Mg Tablet) 100 mg PO DAILY [facility] Last Admin: 07/01/21 09:04 Dose: 100 mg Documented by: Sodium Chloride (0.9 % Sodium Chloride Flush 3 Ml Syringe) 3 ml IVFLUSH QSHIFT [facility] Last Admin: 07/01/21 09:05 Dose: 3 ml Documented by: Vitamin D (Cholecalciferol (Vitamin D3) 25 Mcg Tablet) 50 mcg PO DAILY [facility] Last Admin: 07/01/21 09:03 Dose: 50 mcg Documented by: <ROSARIO Mann - Last Filed: 07/01/21 11:48> Time Spent With Patient Time: Total time spent is greater than 50% in coordination of care (as documented) at patient's floor/unit and/or counseling patient: <ROSARIO Mann - Last Filed: 07/01/21 11:48> Time with patient: 15 - 24 minutes <ROSARIO Mann - Last Filed: 07/01/21 11:48> Progress Note: Quality Stroke Does the patient have a stroke diagnosis?: No <ROSARIO Mann - Last Filed: 07/01/21 11:48> Procedures Date of Service Date of Service: 07/01/21 <ROSARIO Mann - Last Filed: 07/01/21 11:48>
--- NOTE | 2021-07-01 11:36 | MHC.CM.PN ---
Per ROUNDS discussion, Patient is not yet medically cleared for dc (Heparin & Lasix Drip, IV Decadron, IV Vanco, 4L O2);Home with services is the goal for dc and CM will follow for possible need to adjust the dc plan.
[2021-07-01] MEDS: Furosemide 200 MG in 0.9 % Sodium Chloride 80 ML IVCONT (12:03)
--- NOTE | 2021-07-01 14:35 | PC.NURSE ---
Skin/Wound assessment completed. Patient has a stage 2 pressure sore to left buttock. Triad applied covered with foam dressing. Scattered bruising to bilateral arms.
--- NOTE | 2021-07-01 15:18 | MHC.CLN ---
F/U PT WITH INCREASED NUTRITION RISK DUE TO PRESSURE INJURY. DIET= CARDIAC-APPROPRIATE; 1500 ML FLUID RESTRICTION. RECEIVING ENSURE BID TO INCREASE KCALS AND PROMOTE WOUND HEALING. PROVIDES 700 KCAL, 40 G PROTEIN. INTAKE TODAY SHOWS 25% AT BREAKFAST, 100% AT LUNCH. MONITOR PO INTAKE CLOSELY.
[2021-07-01 15:47] LABS: PTT Heparin Drip 52.2 SEC (53-77.9)
[2021-07-01] MEDS: Heparin Sodium,Porcine 5,000 UNIT/ML VIAL 2800 UNIT IVPUSH (16:02)
--- NOTE | 2021-07-01 16:06 | MHC.CM.PN ---
Female 80 DX Anemia No discharge planned at this time. Patient is on a lasix and a Heparin GTT. DP to be determined by the patients recovery and needs.
[2021-07-01] MEDS: Heparin Sodium,Porcine/1/2NS 25,000 UNIT/250 ML IV.SOLN 10.64 UNIT IVCONT (16:18)
[2021-07-01 16:38] LABS: Vancomycin Random 18.6 mcg/mL (15-20)
--- NOTE | 2021-07-01 17:03 | HE.PHANOTE ---
Pts vanco level increased from yesterday w/o getting a dose, hold vanco for now, draw lab in AM, reassess and maybe decrease to 500 mg Q48 hrs
--- NOTE | 2021-07-01 17:08 | MHC.SL.SWA ---
Speech Pathologist Impression: Risk of Aspiration Oralpharyngeal Dysphagia Risk of Aspiration Due to: Lethargy History of Pneumonia Reduced Cognition Dysphasia Diet Status: Downgrade Liquid Consistency and Strategies for Safe Swallow: Liquid Intake Recommendation: Honey Thick Liquid Intake Strategies: Small Sips No Straws Solid Food Consistency: Dietary Recommendations: Grnd/Mech Altered (NDD2) Additional Modifications to Solid Foods: Recommend GROUND/MECH ALTERED (NDD2) solids and HONEY THICK liquid (no straws), pills CRUSHED or WHOLE in PUREE. Patient requires 1:1 assistance feeding and strict aspiration precautions. Diet order updated by TRANSMISSION REBUILDER- sent [place] Message to , RN, RD. TRANSMISSION REBUILDER will continue to follow to monitor tolerance and re-assess potential for upgrade if appropriate. Oral Medication Intake: Crushed with Puree Compensatory Strategies and Precautions to be Taken for Safe Swallow: Sitting Upright (90 deg) No Straw Liquids from Cup Liquids from Spoon Small Bites and Sips Alternate Liquids/Solids Rate of Ingestion Change Oral Check Supervision While Eating and Drinking for Safe Swallow: Total Assistance Swallowing Recommended Treatments: Compens. Strategy Educat. Recommendation for Speech: Inpatient Speech Therapy Comment: TRANSMISSION REBUILDER to follow M-F during hospitalization. Frequency/Duration: M-F Restaurant Floor Manager Clinican/Clinical Fellow: No Supervisory Statement: I have reviewed and agree with the student/clinical fellow's documentation: N/A Speech Language Pathologist: Amairani Cagle M.A., [facility]-TRANSMISSION REBUILDER
--- NOTE | 2021-07-01 19:10 | P.PNNP_ITS ---
Subjective Subjective Date of Service: 07/01/21 Principal diagnosis: LINDA, NSTEMI Interval history: seen and examined,events noted Physical Exam Verdana 4l Vital Signs: Verdana 4d Verdana 4d Vital Signs: Verdana 4d Verdana 4Bd Last Vital Signs Verdana 4d News Production Assistant New 4d News Production Assistant New 4d Temp 98.7 F 07/01/21 15:47 News Production Assistant New 4d Pulse 77 07/01/21 15:47 News Production Assistant New 4d Resp 19 07/01/21 15:47 BP 108/55 L 07/01/21 15:47 Pulse Ox 98 07/01/21 15:47 BMI result Body Mass Index 31.6 Const: General: cooperative, no acute distress and well developed Nutritional Appearance: well nourished Orientation/consciousness: patient oriented x3 Limitations: no limitations HENMT: Other: palpable hematoma and scalp wound with no active bleeding noted, minimal tendern ess Eyes: General: appearance normal, both eyes and all related structures Pupils: Equal, round and reactive pupils present Resp: Effort & Inspection: normal respiratory effort Auscultation: clear to auscultation bilaterally Cardio: Rate: regular rate Rhythm: regular rhythm GI: Palpation (GI): Soft to palpation and nontender Auscultation: normal bowel sounds Skin: General skin exam: no rashes or lesions noted Neuro: General: patient oriented x3 Cranial nerves: Yes Equal, round and reactive pupils present Cognition (Neuro): normal cognition Extrem: General: Yes normal to inspection, Yes no clubbing, cyanosis or edema and Yes no pedal edema Objective Data Labs CBC & Chem 7: 06/30/21 06:02 07/01/21 08:16 Labs: Laboratory Results - last 24 hr 07/01/21 07/01/21 07/01/21 00:25 08:16 08:16 PTT (Heparin Protocol) 92.7 H D Sodium 147 H Potassium 4.5 Chloride 109 H Carbon Dioxide 24 Anion Gap 19 BUN 77 H Creatinine 3.56 H Estim Creat Clear Calc 11.1 Estimated GFR 12 Random Glucose 137 H Calcium 9.1 Troponin I High Sens 10269.3 H* B-Natriuretic Peptide Random Vancomycin 07/01/21 07/01/21 07/01/21 08:16 08:16 15:27 PTT (Heparin Protocol) 69.3 D Sodium Potassium Chloride Carbon Dioxide Anion Gap BUN Creatinine Estim Creat Clear Calc Estimated GFR Random Glucose Calcium Troponin I High Sens B-Natriuretic Peptide 4469 H Random Vancomycin 18.6 07/01/21 15:27 PTT (Heparin Protocol) 52.2 L D Sodium Potassium Chloride Carbon Dioxide Anion Gap BUN Creatinine Estim Creat Clear Calc Estimated GFR Random Glucose Calcium Troponin I High Sens B-Natriuretic Peptide Random Vancomycin Microbiology Microbiology Results: Microbiology 06/30/21 06:02 Blood - Venous Blood Culture - Preliminary No growth after 24 hours. 06/30/21 05:55 Blood - Venous Blood Culture - Preliminary No growth after 24 hours. 06/23/21 09:58 Blood - Venous Blood Culture - Final No growth after 5 days. 06/23/21 09:58 Blood - Venous Blood Culture - Final No growth after 5 days. 06/20/21 11:28 Blood - Venous Blood Culture - Final No growth after 5 days. 06/22/21 Unknown Urine clean catch - Urine lutz top Urine Culture - Final Klebsiella pneumoniae 06/20/21 13:51 Blood - Venous Blood Culture - Final Methicillin Res Staph Aureus Procedures Date of Service Date of Service: 07/01/21 Assessment & Plan Assessment and plan (1) SARS-CoV-2 positive: Status: Acute (2) Hematoma: Status: Acute Plan 80-year-old female with past medical history significant for AFib on Eliquis, CHF, CKD 3 ( BSL SCr 1.5-1.8) who presents to the hospital with bleeding from a laceration her head found to have a large hematoma and LINDA on CKD and Staph bacteremia and now high tropnin and gen failing with Chest CT showing pulm vasc congestion 1. LINDA: incr SCr is a concern---today SCr 3.5 and limited diuresis on lasix drip LINDA d/t: tubular injury from covid and/or VANCO--ATN 2. CKD 3: BSL SCr 1.5-1.8 3. Vol status: per Card pulm edema in setting of AMI and diuretc ressitant; 4. Staph bact MRSA and now on vanco; ques source 5. A.C: ques timing of r/s 6. Anemia: track 7. Covid +: now ques covid lung involvement 8. H/O HTN: remains off BP meds Disc: overall doing very poorly and may need to be xfer to ICU and place SWG to optimize management of AK and hypoxia regarding fluid vs diuretic management vs IV meds ( inotropes/Nipride etc..) REC: card managing diuretics-- ? check IVC on u/s for additional assessment of vol status vs SWG; , cont to track renal func UOP, ; track vanco level and see if alt availbe given risk of vanco ATN; GOC discussion with family No indication of HD at this time and hopefully avoid will follow with team Time Spent With Patient Time: Total time spent is greater than 50% in coordination of care (as documented) at patient's floor/unit and/or counseling patient: Progress Note: Quality Stroke Does the patient have a stroke diagnosis?: No
[2021-07-02] VITALS (11 sets, daily range): BP systolic 104–126; BP diastolic 55–73; PULSE 54–75; RESP 15–20; TEMP 36.3–37.4; O2SAT 88–100
[2021-07-02] MEDS: Omeprazole 20 MG CAPSULE.DR PO (06:37)
[2021-07-02 07:02] LABS: Creatinine Clr Calc Pharmacy 11.2; Estimated Glomerular Filt Rate 13
[2021-07-02 07:10] LABS: Vancomycin Random 16.3 mcg/mL (15-20)
[2021-07-02] MEDS: Albuterol/Iprat 2.5/0.5MG 3 ML AMPUL.NEB INHALE ×4 (07:46→20:04)
[2021-07-02] MEDS: vancomycin HCL 500 MG in 0.9 % Sodium Chloride 100 ML 110 MG IV (08:16)
[2021-07-02 09:11] LABS: Anion Gap 14 (12-20); Blood Urea Nitrogen 89 mg/dL (9-16); Carbon Dioxide 29 mmol/L (22-29); Chloride 105 mmol/L (96-108); Glucose Random 134 mg/dL (60-115); Potassium 4.2 mmol/L (3.3-5.1); Sodium 144 mmol/L (135-145)
[2021-07-02] MEDS: Furosemide 200 MG in 0.9 % Sodium Chloride 80 ML IVCONT (09:18)
[2021-07-02 09:21] LABS: B Type Natriuretic Peptide 2942 pg/mL (<100)
--- NOTE | 2021-07-02 11:11 | P.PNNP_ITS ---
Subjective Subjective Date of Service: 07/02/21 Principal diagnosis: LINDA, NSTEMI Interval history: seen and examined,events noted Looks much better this am UOP net neg 1.8 L past 24 hrs Physical Exam Verdana 4l Vital Signs: Verdana 4d Verdana 4d Vital Signs: Verdana 4d Verdana 4Bd Last Vital Signs Verdana 4d Gas Prover New 4d Gas Prover New 4d Temp 97.9 F 07/02/21 07:31 Gas Prover New 4d Pulse 63 07/02/21 07:48 Gas Prover New 4d Resp 20 07/02/21 07:48 BP 126/73 07/02/21 07:31 Pulse Ox 93 07/02/21 07:31 BMI result Body Mass Index 31.6 Const: General: cooperative, no acute distress and well developed Nutritional Appearance: well nourished Orientation/consciousness: patient oriented x3 Limitations: no limitations HENMT: Other: palpable hematoma and scalp wound with no active bleeding noted, minimal tenderness Eyes: General: appearance normal, both eyes and all related structures Pupils: Equal, round and reactive pupils present Resp: Effort & Inspection: normal respiratory effort Auscultation: clear to auscultation bilaterally Cardio: Rate: regular rate Rhythm: regular rhythm GI: Palpation (GI): Soft to palpation and nontender Auscultation: normal bowel sounds Skin: General skin exam: no rashes or lesions noted Neuro: General: patient oriented x3 Cranial nerves: Yes Equal, round and reactive pupils present Cognition (Neuro): normal cognition Extrem: General: Yes normal to inspection, Yes no clubbing, cyanosis or edema and Yes no pedal edema Objective Data Labs CBC & Chem 7: 06/30/21 06:02 07/02/21 06:37 Labs: Laboratory Results - last 24 hr 07/01/21 07/01/21 07/02/21 15:27 15:27 06:37 PTT (Heparin Protocol) 52.2 L D Sodium Potassium Chloride Carbon Dioxide Anion Gap BUN Creatinine Estim Creat Clear Calc Estimated GFR Random Glucose Calcium Troponin I High Sens B-Natriuretic Peptide Random Vancomycin 18.6 16.3 07/02/21 07/02/21 06:37 06:37 PTT (Heparin Protocol) Sodium 144 Potassium 4.2 Chloride 105 Carbon Dioxide 29 Anion Gap 14 BUN 89 H Creatinine 3.53 H Estim Creat Clear Calc 11.2 Estimated GFR 13 Random Glucose 134 H Calcium 9.0 Troponin I High Sens 40851.4 H* B-Natriuretic Peptide 2942 H Random Vancomycin Microbiology Microbiology Results: Microbiology 06/30/21 06:02 Blood - Venous Blood Culture - Preliminary No growth after 48 hours. 06/30/21 05:55 Blood - Venous Blood Culture - Preliminary No growth after 48 hours. 06/23/21 09:58 Blood - Venous Blood Culture - Final No growth after 5 days. 06/23/21 09:58 Blood - Venous Blood Culture - Final No growth after 5 days. 06/20/21 11:28 Blood - Venous Blood Culture - Final No growth after 5 days. 06/22/21 Unknown Urine clean catch - Urine lutz top Urine Culture - Final Klebsiella pneumoniae 06/20/21 13:51 Blood - Venous Blood Culture - Final Methicillin Res Staph Aureus Procedures Date of Service Date of Service: 07/02/21 Assessment & Plan Assessment and plan (1) SARS-CoV-2 positive: Status: Acute (2) Hematoma: Status: Acute Plan 80-year-old female with past medical history significant for AFib on Eliquis, CHF, CKD 3 ( BSL SCr 1.5-1.8) who presents to the hospital with bleeding from a laceration her head found to have a large hematoma and LINDA on CKD and Staph bacteremia and now high tropnin and gen failing with Chest CT showing pulm vasc congestion 1. LINDA: incr SCr is a concern---today SCr remains 3.5 BUT signif diuresis past 324 hrs-- net neg 1.8 L LINDA d/t: tubular injury from covid and/or VANCO--ATN 2. CKD 3: BSL SCr 1.5-1.8 3. Vol status: per Card pulm edema in setting of AMI and now diuretc responsive 4. Staph bact MRSA and now on vanco; ques source 5. A.C: ques timing of r/s 6. Anemia: track 7. Covid +: now ques covid lung involvement 8. H/O HTN: remains off BP meds REC: card managing diuretics and now responding; cont to track renal func UOP, ; track vanco level and see if alt availbe given risk of vanco ATN; GOC discussion with family No indication of HD at this time and hopefully avoid will follow with team Time Spent With Patient Time: Total time spent is greater than 50% in coordination of care (as documented) at patient's floor/unit and/or counseling patient: Progress Note: Quality Stroke Does the patient have a stroke diagnosis?: No
--- NOTE | 2021-07-02 11:30 | MHC.SL.SWA ---
Speech Pathologist Impression: Risk of Aspiration Oralpharyngeal Dysphagia Risk of Aspiration Due to: Lethargy History of Pneumonia Reduced Cognition Dysphasia Diet Status: Downgrade Liquid Consistency and Strategies for Safe Swallow: Liquid Intake Recommendation: Honey Thick Liquid Intake Strategies: Small Sips No Straws Solid Food Consistency: Dietary Recommendations: Grnd/Mech Altered (NDD2) Additional Modifications to Solid Foods: Recommend GROUND/MECH ALTERED (NDD2) solids and HONEY THICK liquid (no straws), pills CRUSHED or WHOLE in PUREE. Patient requires 1:1 assistance feeding and strict aspiration precautions. Oral Medication Intake: Crushed with Puree Compensatory Strategies and Precautions to be Taken for Safe Swallow: Sitting Upright (90 deg) No Straw Liquids from Cup Liquids from Spoon Alternate Liquids/Solids Supervision While Eating and Drinking for Safe Swallow: Total Supervision (1:1) Foods to Avoid: Swallowing Recommended Treatments: Compens. Strategy Educat. Recommendation for Speech: Inpatient Speech Therapy Pt was awake, alert, communicative. Pt reported that she had had eggs for breakfast and juices. Pt was shown correct consistency for honey thick and encouraged to thin liquids on tray if they are too congealed to the correct consistency. Pt was given multiple tsps of honey thick liquid, w/ timely oral management and mild delay initiating swallow noted, no clinical signs of aspiration. Pt given tsp of thin liquids (water), demonstrated timely oral phase, mild delay initiating swallow, wet voice after swallow. Recommend CONTINUE at current diet consistency levels: HONEY THICK liquid w/GROUND/MECH - Alt (NDD2) w/ direct supervision during meals. Comment: SHRINKER to follow M-F during hospitalization. Frequency/Duration: M-F Date Range for Service Req: Timeline to reassess: Fireworks Maker Clinican/Clinical Fellow: No Supervisory Statement: I have reviewed and agree with the student/clinical fellow's documentation: N/A Speech Language Pathologist: Chelsea Gilbert M.A., CCC-SHRINKER
[2021-07-02] MEDS: Amiodarone HCL 200 MG TABLET PO (11:32)
[2021-07-02] MEDS: Cholecalciferol (Vitamin D3) 25 MCG TABLET 50 MCG PO (11:32)
[2021-07-02] MEDS: Atorvastatin Calcium 20 MG TABLET PO (11:33)
[2021-07-02] MEDS: Pregabalin 50 MG CAPSULE PO ×3 (11:33→21:04)
[2021-07-02] MEDS: Isosorbide Mononitrate 60 MG TAB.ER.24H PO (11:33)
[2021-07-02] MEDS: Ferrous Sulfate 324 MG TABLET.DR PO (11:33)
[2021-07-02] MEDS: Sertraline HCL 100 MG TABLET PO (11:33)
[2021-07-02] MEDS: dexAMETHasone sod phosphate 4 MG/ML VIAL 6 MG IVPUSH (11:34)
[2021-07-02] MEDS: Nystatin Powder 15 GM BOTTLE 1 APPL TOPICAL ×2 (11:38→21:04)
--- NOTE | 2021-07-02 12:53 | PM.PNCARD ---
Subjective Subjective Date of Service: 07/02/21 Principal diagnosis: LINDA, NSTEMI Interval history: Patricia is doing extremely well today and appears to be much more alert. She says her breathing is better. She denies any chest pain. She has been diuresing well on current drip. Creatinine is remained stable or improved slightly. Her echocardiogram shows significant LV systolic dysfunction with new regional wall motion abnormality consistent with recent OK. Review of Systems Constitutional: Reports lethargy and Reports weakness Cardiovascular: Denies chest pain, Denies leg edema, Denies palpitations and Reports dyspnea Respiratory: Reports dyspnea Gastrointestinal: Reports no additional gastrointestinal complaints Genitourinary: Reports no additional female genitourinary complaints Musculoskeletal: Reports no additional musculoskeletal complaints Skin/Breast: Reports system reviewed and no additional complaints, except as docu Reports system reviewed and no additional complaints, except as documented and Reports weakness Psychiatric: Reports no additional psychiatric complaints Endocrine: Denies palpitations Physical Exam Vital Signs: Last Vital Signs Temp 98.0 F 07/02/21 11:14 Pulse 70 07/02/21 11:32 Resp 18 07/02/21 11:32 BP 117/65 07/02/21 11:14 Pulse Ox 96 07/02/21 11:14 BMI result Body Mass Index 31.6 Const General: cooperative, comfortable, alert, awake and ill appearing Nutritional Appearance: overweight Orientation/consciousness: patient oriented x3 Neck Neck: Yes trachea midline, Yes supple and Yes no JVD Resp Effort & Inspection: decreased respiratory effort Auscultation: no rales, no wheezes and diminished lung sounds Cardio Jugular venous distension: no JVD Rate: regular rate Rhythm: regular rhythm Heart sounds: S1 normal heart sound present, S2 normal heart sound present, no click, no gallops and no murmurs GI Auscultation: normal bowel sounds Skin General skin exam: ecchymosis Neuro General: patient oriented x3 and no focal motor deficits Extrem General: Yes no clubbing, cyanosis or edema Objective Labs and Meds Result diagrams: 06/30/21 06:02 07/02/21 06:37 Lab results: Laboratory Results - last 24 hr 07/01/21 07/01/21 07/02/21 15:27 15:27 06:37 PTT (Heparin Protocol) 52.2 L D Sodium Potassium Chloride Carbon Dioxide Anion Gap BUN Creatinine Estim Creat Clear Calc Estimated GFR Random Glucose Calcium Troponin I High Sens B-Natriuretic Peptide Random Vancomycin 18.6 16.3 07/02/21 07/02/21 06:37 06:37 PTT (Heparin Protocol) Sodium 144 Potassium 4.2 Chloride 105 Carbon Dioxide 29 Anion Gap 14 BUN 89 H Creatinine 3.53 H Estim Creat Clear Calc 11.2 Estimated GFR 13 Random Glucose 134 H Calcium 9.0 Troponin I High Sens 73263.4 H* B-Natriuretic Peptide 2942 H Random Vancomycin Imaging Radiologist's impression: Impressions Guidance Ultrasound 06/26/21 10:08 IMPRESSION: 1. Successful ultrasound and fluoroscopy-guided placement of a tunneled Rob catheter via right jugular vein. The catheter tip is in SVC ready for use. 2. Fluoroscopy time: 1.2 minutes. 3. Dose area product: 255 cGy/cm2 Insertion Tunneled Catheter 06/26/21 10:08 IMPRESSION: 1. Successful ultrasound and fluoroscopy-guided placement of a tunneled Rob catheter via right jugular vein. The catheter tip is in SVC ready for use. 2. Fluoroscopy time: 1.2 minutes. 3. Dose area product: 255 cGy/cm2 Progress Note: A&P Assessment and plan (1) Acute congestive heart failure: Status: Acute Assessment and Plan: Patient with acute congestive heart failure/pulmonary edema due to recent acute myocardial infarction with markedly reduced LV systolic function at current time. Clinically seems to be improving with Lasix drip. Continue 1 more day of Lasix drip. Strict intake and output chart needs to be pursued. Continue to monitor renal function as well as electrolytes. Check BMP tomorrow. Clinically appears with no significant rales on pulmonary exam is and her right-sided filling pressures appear to be normal. Difficult to assess due to her body habitus. Will continue to monitor clinically. Continue supportive care. Will start her on afterload reduction with hydralazine 25 mg b.i.d.. Stop amlodipine for now. Continue isosorbide therapy. Overall prognosis is guarded especially given her advanced age, frailty, advanced renal dysfunction. However she is doing better compared to yesterday with much improved mental status. (2) NSTEMI (non-ST elevated myocardial infarction): Status: Acute Assessment and Plan: Acute myocardial infarction status post heparin drip for 48 hours. Troponin still remain elevated most likely due to reduced renal clearance. Continue to trend on a daily basis. Once it down trend, stop trending her troponins. She is not having any acute myocardial infarction. Not a candidate for cardiac catheterization given her multiple comorbidities including advanced renal dysfunction. Management will be medical. This was discussed with patient's daughter Lida, were understands. Continue statin therapy. Start low-dose aspirin therapy. Sitter packed RBC transfusion followed by Lasix push to help cardiac function and status. (3) Paroxysmal atrial fibrillation: Status: Acute Assessment and Plan: Paroxysmal atrial fibrillation which has remained suppressed all throughout her acute illness. Continue low-dose amiodarone therapy. Maintenance of rhythm as helped her significantly in the past. Started on Eliquis therapy today. Continue monitor hematocrit closely. Will follow with you Fall Risk Details Current Medications: Current Medications Acetaminophen (Acetaminophen 325 Mg Tablet) 650 mg PO Q6H PRN PRN Reason: Pain, Mild (Pain Scale 1-3) Last Admin: 06/25/21 21:40 Dose: 650 mg Documented by: Albuterol Sulfate (Albuterol Sulfate 90 Mcg 8 Gm Inhaler) 2 puff INHALE Q6H PRN PRN Reason: Wheezing Albuterol/Ipratropium (Albuterol/Iprat 2.5/0.5mg 3 Ml Ampul.Neb) 3 ml INHALE RQ4H WHILE AWAKE [facility] Last Admin: 07/02/21 11:32 Dose: 3 ml Documented by: Amiodarone HCl (Amiodarone Hcl 200 Mg Tablet) 200 mg PO DAILY [facility] Last Admin: 07/02/21 11:32 Dose: 200 mg Documented by: Amlodipine Besylate (Amlodipine Besylate 10 Mg Tablet) 10 mg PO DAILY [facility]; Protocol Last Admin: 07/01/21 09:04 Dose: 10 mg Documented by: Apixaban (Apixaban 2.5 Mg Tablet) 2.5 mg PO BID [facility] Atorvastatin Calcium (Atorvastatin Calcium 20 Mg Tablet) 20 mg PO DAILY [facility] Last Admin: 07/02/21 11:33 Dose: 20 mg Documented by: Calcitriol (Calcitriol 0.25 Mcg Capsule) 0.25 mcg PO Q2D [facility] Last Admin: 07/01/21 09:06 Dose: 0.25 mcg Documented by: Dexamethasone Sodium Phosphate (Dexamethasone Sod Phosphate 4 Mg/Ml Vial) 6 mg IVPUSH DAILY [facility] Stop: 07/09/21 09:01 Last Admin: 07/02/21 11:34 Dose: 6 mg Documented by: Docusate Sodium (Docusate Sodium 100 Mg Capsule) 100 mg PO DAILY PRN PRN Reason: Constipation Ferrous Sulfate (Ferrous Sulfate 324 Mg Tablet.) 324 mg PO DAILY [facility] Last Admin: 07/02/21 11:33 Dose: 324 mg Documented by: Furosemide 200 mg/ Sodium (Chloride) 100 mls @ 5 mls/hr IVCONT .Q20H [facility] Last Admin: 07/02/21 09:18 Dose: 10 mg/hr, 5 mls/hr Documented by: Vancomycin HCl 500 mg/ Sodium (Chloride) 110 mls @ 110 mls/hr IV Q48H [facility] Last Infusion: 07/02/21 11:39 Dose: Infused Documented by: Isosorbide Mononitrate (Isosorbide Mononitrate 60 Mg Tab.Er.24h) 60 mg PO DAILY [facility]; Protocol Last Admin: 07/02/21 11:33 Dose: 60 mg Documented by: Meclizine HCl (Meclizine Hcl 25 Mg Tablet) 25 mg PO DAILY PRN PRN Reason: Vertigo Nitroglycerin (Nitroglycerin 0.4 Mg Tab.Subl) 0.4 mg SUBLINGUAL Q5M PRN PRN Reason: chest pain Patient Own Med( Memantine [Namenda Xr] 21 Mg Capsule) 1 each PO DAILY [facility] Last Admin: 07/02/21 11:39 Dose: 1 each Documented by: Nystatin (Nystatin Powder 15 Gm Bottle) 1 appl TOPICAL BID [facility]; Protocol Last Admin: 07/02/21 11:38 Dose: 1 appl Documented by: Omeprazole (Omeprazole 20 Mg Capsule.) 20 mg PO DAILY@0630 [facility] Last Admin: 07/02/21 06:37 Dose: 20 mg Documented by: Ondansetron HCl (Ondansetron Hcl 4 Mg/2 Ml Vial) 4 mg IVPUSH Q8H PRN PRN Reason: Nausea and Vomiting Last Admin: 06/27/21 06:08 Dose: 4 mg Documented by: Pregabalin (Pregabalin 50 Mg Capsule) 50 mg PO TID [facility] Last Admin: 07/02/21 11:33 Dose: 50 mg Documented by: Rivastigmine Tartrate (Rivastigmine Tartrate 6 Mg Capsule) 6 mg PO BID [facility] Last Admin: 07/02/21 11:33 Dose: 6 mg Documented by: Sertraline HCl (Sertraline Hcl 100 Mg Tablet) 100 mg PO DAILY [facility] Last Admin: 07/02/21 11:33 Dose: 100 mg Documented by: Sodium Chloride (0.9 % Sodium Chloride Flush 3 Ml Syringe) 3 ml IVFLUSH QSHIFT [facility] Last Admin: 07/02/21 06:37 Dose: Not Given Documented by: Vitamin D (Cholecalciferol (Vitamin D3) 25 Mcg Tablet) 50 mcg PO DAILY [facility] Last Admin: 07/02/21 11:32 Dose: 50 mcg Documented by: Time Spent With Patient Time: Total time spent is greater than 50% in coordination of care (as documented) at patient's floor/unit and/or counseling patient: Time with patient: 25 - 35 minutes Progress Note: Quality Stroke Does the patient have a stroke diagnosis?: No Procedures Date of Service Date of Service: 07/02/21
[2021-07-02] MEDS: hydrALAZINE HCl 25 MG TABLET PO ×2 (14:53→21:04)
--- NOTE | 2021-07-02 16:03 | HO.PM.IMPN ---
Subjective Subjective Date of Service: 07/02/21 Interval History: seen and examined this morning follow up for multiple medical issues seems more awake this morning denies any shortness of breath or chest pain Constitutional Constitutional: Denies chills and Denies fever(s) Cardiovascular Cardiovascular: Denies chest pain and Denies dyspnea Respiratory Respiratory: Denies dyspnea Physical Exam Vital Signs: Vital Signs: Last Vital Signs Temp 98 F 07/02/21 15:49 Pulse 70 07/02/21 15:49 Resp 18 07/02/21 15:49 BP 104/55 L 07/02/21 15:49 Pulse Ox 99 07/02/21 15:49 BMI result Body Mass Index 31.6 Const: Other: more awake today General: alert, awake and ill appearing Nutritional Appearance: overweight Resp: Other: diminished breath sounds Effort & Inspection: normal respiratory effort Objective Data Active Medications Acetaminophen (Acetaminophen 325 Mg Tablet) 650 mg PO Q6H PRN PRN Reason: Pain, Mild (Pain Scale 1-3) Last Admin: 06/25/21 21:40 Dose: 650 mg Documented by: PRATIMA Albuterol Sulfate (Albuterol Sulfate 90 Mcg 8 Gm Inhaler) 2 puff INHALE Q6H PRN PRN Reason: Wheezing Albuterol/Ipratropium (Albuterol/Iprat 2.5/0.5mg 3 Ml Ampul.Neb) 3 ml INHALE RQ4H WHILE AWAKE [facility] Last Admin: 07/02/21 15:32 Dose: 3 ml Documented by: KILO Amiodarone HCl (Amiodarone Hcl 200 Mg Tablet) 200 mg PO DAILY [facility] Last Admin: 07/02/21 11:32 Dose: 200 mg Documented by: SNOW Apixaban (Apixaban 2.5 Mg Tablet) 2.5 mg PO BID [facility] Atorvastatin Calcium (Atorvastatin Calcium 20 Mg Tablet) 20 mg PO DAILY [facility] Last Admin: 07/02/21 11:33 Dose: 20 mg Documented by: SNOW Calcitriol (Calcitriol 0.25 Mcg Capsule) 0.25 mcg PO Q2D [facility] Last Admin: 07/01/21 09:06 Dose: 0.25 mcg Documented by: WINSOME Dexamethasone Sodium Phosphate (Dexamethasone Sod Phosphate 4 Mg/Ml Vial) 6 mg IVPUSH DAILY [facility] Stop: 07/09/21 09:01 Last Admin: 07/02/21 11:34 Dose: 6 mg Documented by: SNOW Docusate Sodium (Docusate Sodium 100 Mg Capsule) 100 mg PO DAILY PRN PRN Reason: Constipation Ferrous Sulfate (Ferrous Sulfate 324 Mg Tablet.) 324 mg PO DAILY [facility] Last Admin: 07/02/21 11:33 Dose: 324 mg Documented by: SNOW Hydralazine HCl (Hydralazine Hcl 25 Mg Tablet) 25 mg PO BID [facility]; Protocol Last Admin: 07/02/21 14:53 Dose: 25 mg Documented by: SNOW Furosemide 200 mg/ Sodium (Chloride) 100 mls @ 5 mls/hr IVCONT .Q20H [facility] Last Admin: 07/02/21 09:18 Dose: 10 mg/hr, 5 mls/hr Documented by: SNOW Vancomycin HCl 500 mg/ Sodium (Chloride) 110 mls @ 110 mls/hr IV Q48H [facility] Last Infusion: 07/02/21 11:39 Dose: 0 mls/hr Documented by: SNOW Isosorbide Mononitrate (Isosorbide Mononitrate 60 Mg Tab.Er.24h) 60 mg PO DAILY [facility]; Protocol Last Admin: 07/02/21 11:33 Dose: 60 mg Documented by: SNOW Meclizine HCl (Meclizine Hcl 25 Mg Tablet) 25 mg PO DAILY PRN PRN Reason: Vertigo Nitroglycerin (Nitroglycerin 0.4 Mg Tab.Subl) 0.4 mg SUBLINGUAL Q5M PRN PRN Reason: chest pain Patient Own Med( Memantine [Namenda Xr] 21 Mg Capsule) 1 each PO DAILY [facility] Last Admin: 07/02/21 11:39 Dose: 1 each Documented by: SNOW Nystatin (Nystatin Powder 15 Gm Bottle) 1 appl TOPICAL BID [facility]; Protocol Last Admin: 07/02/21 11:38 Dose: 1 appl Documented by: SNOW Omeprazole (Omeprazole 20 Mg Capsule.) 20 mg PO DAILY@0630 [facility] Last Admin: 07/02/21 06:37 Dose: 20 mg Documented by: KIMO Ondansetron HCl (Ondansetron Hcl 4 Mg/2 Ml Vial) 4 mg IVPUSH Q8H PRN PRN Reason: Nausea and Vomiting Last Admin: 06/27/21 06:08 Dose: 4 mg Documented by: GIOVANNI Pregabalin (Pregabalin 50 Mg Capsule) 50 mg PO TID [facility] Last Admin: 07/02/21 14:54 Dose: 50 mg Documented by: SNOW Rivastigmine Tartrate (Rivastigmine Tartrate 6 Mg Capsule) 6 mg PO BID [facility] Last Admin: 07/02/21 11:33 Dose: 6 mg Documented by: SNOW Sertraline HCl (Sertraline Hcl 100 Mg Tablet) 100 mg PO DAILY [facility] Last Admin: 07/02/21 11:33 Dose: 100 mg Documented by: SNOW Sodium Chloride (0.9 % Sodium Chloride Flush 3 Ml Syringe) 3 ml IVFLUSH QSHIFT [facility] Last Admin: 07/02/21 06:37 Dose: Not Given Documented by: KIMO Non-Admin Reason: IV Running Vitamin D (Cholecalciferol (Vitamin D3) 25 Mcg Tablet) 50 mcg PO DAILY [facility] Last Admin: 07/02/21 11:32 Dose: 50 mcg Documented by: SNOW Labs CBC & Chem 7: 06/30/21 06:02 07/02/21 06:37 Labs: Laboratory Results - last 24 hr 07/01/21 07/02/21 07/02/21 15:27 06:37 06:37 Anion Gap 14 Estim Creat Clear Calc 11.2 Estimated GFR 13 Random Glucose 134 H Calcium 9.0 Troponin I High Sens B-Natriuretic Peptide Random Vancomycin 18.6 16.3 07/02/21 06:37 Anion Gap Estim Creat Clear Calc Estimated GFR Random Glucose Calcium Troponin I High Sens 53015.4 H* B-Natriuretic Peptide 2942 H Random Vancomycin Microbiology Microbiology Results: Microbiology 06/30/21 06:02 Blood Culture - Preliminary Blood - Venous No growth after 48 hours. 06/30/21 05:55 Blood Culture - Preliminary Blood - Venous No growth after 48 hours. Assessment and Plan (1) Acute congestive heart failure: Status: Acute (2) Hypoxia: Status: Acute (3) MRSA bacteremia: Status: Acute Plan 80-year-old female with past medical history significant for AFib on Eliquis, CHF who presents to the hospital with bleeding from a laceration her head found to have a large hematoma. NSTEMI troponin trending down discussed with cardiology, s/p 48 hrs AC with heparin trend trops until decreasing cardiology following Echo with new WMA not a candidate for cardiac cath due to renal failure Acute heart failure with reduced EF ECHO from 06/30 showing severely reduced LVEF at 20-25% with new WMA continue lasix drip cardiology following Encephalopathy. More alert today Normal ammonia ABG 7.29/51/91/24.7 previously discussed case with ICU, No need for ICU level at this time. Recheck VBG if no improvement Brain CT negative for acute abnormality Acute hypoxic respiratory failure possibly secondary to heart failure and COVID At this point chest CT is not appearing not to be bacterial so will stop meropenem continue lasix drip as CT showing pulmonary edema and BNP is up to 3400+ Oxygen saturation improved with supplemental oxygen, desats quickly on room air even at rest MRSA bacteremia BCx from 06/20/2021 1 culture positive for MRSA, repeat BCx negative x 48 hours unclear source echo Showed EF of 60-65% with no regional wall motion abnormalities will need 4 weeks IV abx on discharge per ID tuttle placed 06/26 LINDA on CKD stage 4. 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 intially AC was held COVID positive no hypoxia. positive 2 weeks ago but continues to have cough monitor respiratory status AFib continue amiodarone will resume Eliquis asymptomatic bacteriuria/pyuria:? ceftriaxone stopped. UCx growing klebsiella discussed with ID, no need for treatment, pt asymptomatic HTN continue hydralazine, d/c norvasc per cardiology rec nocturnal? hypoxia 2L o2 at night dvt ppx -eliquis Code status - DNR/DNI attending Dr. Dc Quality Stroke Does the patient have a stroke diagnosis?: No VTE Prior VTE?: No VTE Risk Level:: Medical - moderate - high VTE Device Contraindication: N/A - Device Ordered VTE Drug Contraindication: N/A - Med Ordered
[2021-07-02] MEDS: 0.9 % Sodium Chloride Flush 3 ML SYRINGE IVFLUSH (17:05)
[2021-07-02] MEDS: Apixaban 2.5 MG TABLET PO (21:04)
[2021-07-02] MEDS: Acetaminophen 325 MG TABLET 650 MG PO (21:04)
[2021-07-03] VITALS (14 sets, daily range): BP systolic 105–140; BP diastolic 59–74; PULSE 55–82; RESP 18–20; TEMP 35.9–36.9; O2SAT 95–100
[2021-07-03] MEDS: Furosemide 200 MG in 0.9 % Sodium Chloride 80 ML IVCONT (00:26)
[2021-07-03] MEDS: calcitrioL 0.25 MCG CAPSULE PO (04:49)
[2021-07-03] MEDS: Omeprazole 20 MG CAPSULE.DR PO (04:49)
--- NOTE | 2021-07-03 05:34 | PC.NURSE ---
Pt more AxO ad orientated than previous days, spent time catching up with family on phone last evening. Tolerated care well and responded appropriately.
[2021-07-03 06:32] LABS: MANUAL DIFF FLAG NO
[2021-07-03 06:43] LABS: Hematocrit 24.2 % (37.0-47.0); Hemoglobin 7.3 g/dl (12.0-16.0); Imm Gran Abs Auto 0.15 X10*3/uL (0.00-0.03); Imm Gran Pct Auto 2.3 % (0.0-0.4); Lymphocytes Absolute Auto 0.5 X10*3/uL (1.2-4.9); Mean Corpuscular HGB Conc 30.2 g/dl (31.0-35.0); Mean Platelet Volume 11.8 fL (9.4-12.3); Monocytes Absolute Auto 0.7 X10*3/uL (0.1-1.2); Monocytes Percent Auto 10.2 % (2-11); Neutrophils Absolute Auto 5.3 x10*3/uL (2.0-8.3); Neutrophils Percent Auto 80.5 % (45-73); Platelet Count 104 X10*3/uL (160-400); Red Blood Count 2.52 X10*6/uL (4.20-5.50); Red Cell Distribution Width 14.4 % (11.0-16.0); White Blood Count 6.6 X10*3/uL (4.8-10.8)
[2021-07-03 07:17] LABS: Anion Gap 13 (12-20); Blood Urea Nitrogen 96 mg/dL (9-16); Calcium 8.8 mg/dL (8.4-10.2); Carbon Dioxide 32 mmol/L (22-29); Chloride 103 mmol/L (96-108); Creatinine Clr Calc Pharmacy 10.5; Estimated Glomerular Filt Rate 12; Glucose Random 186 mg/dL (60-115); Potassium 4.3 mmol/L (3.3-5.1); Sodium 144 mmol/L (135-145)
[2021-07-03 07:19] LABS: B Type Natriuretic Peptide 2992 pg/mL (<100)
[2021-07-03] MEDS: Albuterol/Iprat 2.5/0.5MG 3 ML AMPUL.NEB INHALE ×4 (07:49→21:02)
[2021-07-03] MEDS: dexAMETHasone sod phosphate 4 MG/ML VIAL 6 MG IVPUSH (10:07)
[2021-07-03] MEDS: 0.9 % Sodium Chloride Flush 3 ML SYRINGE IVFLUSH ×3 (10:07→22:04)
[2021-07-03] MEDS: Ferrous Sulfate 324 MG TABLET.DR PO (10:08)
[2021-07-03] MEDS: Cholecalciferol (Vitamin D3) 25 MCG TABLET 50 MCG PO (10:08)
[2021-07-03] MEDS: Pregabalin 50 MG CAPSULE PO ×3 (10:08→22:04)
[2021-07-03] MEDS: Atorvastatin Calcium 20 MG TABLET PO (10:09)
[2021-07-03] MEDS: Sertraline HCL 100 MG TABLET PO (10:09)
[2021-07-03] MEDS: hydrALAZINE HCl 25 MG TABLET PO ×2 (10:09→22:04)
[2021-07-03] MEDS: Isosorbide Mononitrate 60 MG TAB.ER.24H PO (10:09)
[2021-07-03] MEDS: Amiodarone HCL 200 MG TABLET PO (10:09)
[2021-07-03] MEDS: Apixaban 2.5 MG TABLET PO ×2 (10:09→22:04)
[2021-07-03] MEDS: Nystatin Powder 15 GM BOTTLE 1 APPL TOPICAL ×2 (10:19→22:07)
--- NOTE | 2021-07-03 10:24 | P.PNIM_ITS ---
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 Supervisor New 4d Pulse 55 07/03/21 08:00 Solder Making Supervisor New 4d Resp 20 07/03/21 08:00 BP 115/60 07/03/21 08:00 Pulse Ox 99 07/03/21 08:00 BMI result Body Mass Index 31.6 Const: Other: General - no acute distress, appears comfortable Cardiovascular - S1S2, no JVD appreciated Lungs diminshed sounds, no resp distress Abdomen - soft, nontender, no rebound or guarding Neuro - awake and alert, no focal deficits Objective Data Active Medications Acetaminophen (Acetaminophen 325 Mg Tablet) 650 mg PO Q6H PRN PRN Reason: Pain, Mild (Pain Scale 1-3) Last Admin: 07/02/21 21:04 Dose: 650 mg Documented by: WINSOME Albuterol Sulfate (Albuterol Sulfate 90 Mcg 8 Gm Inhaler) 2 puff INHALE Q6H PRN PRN Reason: Wheezing Albuterol/Ipratropium (Albuterol/Iprat 2.5/0.5mg 3 Ml Ampul.Neb) 3 ml INHALE RQ4H WHILE AWAKE [facility] Last Admin: 07/03/21 07:49 Dose: 3 ml Documented by: HUA Amiodarone HCl (Amiodarone Hcl 200 Mg Tablet) 200 mg PO DAILY [facility] Last Admin: 07/03/21 10:09 Dose: 200 mg Documented by: CURTIS Apixaban (Apixaban 2.5 Mg Tablet) 2.5 mg PO BID [facility] Last Admin: 07/03/21 10:09 Dose: 2.5 mg Documented by: CURTIS Atorvastatin Calcium (Atorvastatin Calcium 20 Mg Tablet) 20 mg PO DAILY [facility] Last Admin: 07/03/21 10:09 Dose: 20 mg Documented by: CURTIS Calcitriol (Calcitriol 0.25 Mcg Capsule) 0.25 mcg PO Q2D [facility] Last Admin: 07/03/21 04:49 Dose: 0.25 mcg Documented by: WINSOME Dexamethasone Sodium Phosphate (Dexamethasone Sod Phosphate 4 Mg/Ml Vial) 6 mg IVPUSH DAILY [facility] Stop: 07/09/21 09:01 Last Admin: 07/03/21 10:07 Dose: 6 mg Documented by: CURTIS Docusate Sodium (Docusate Sodium 100 Mg Capsule) 100 mg PO DAILY PRN PRN Reason: Constipation Ferrous Sulfate (Ferrous Sulfate 324 Mg Tablet.) 324 mg PO DAILY [facility] Last Admin: 07/03/21 10:08 Dose: 324 mg Documented by: CURTIS Hydralazine HCl (Hydralazine Hcl 25 Mg Tablet) 25 mg PO BID [facility]; Protocol Last Admin: 07/03/21 10:09 Dose: 25 mg Documented by: CURTIS Vancomycin HCl 500 mg/ Sodium (Chloride) 110 mls @ 110 mls/hr IV Q48H [facility] Last Infusion: 07/02/21 11:39 Dose: 0 mls/hr Documented by: SNOW Furosemide 200 mg/ Sodium (Chloride) 100 mls @ 5 mls/hr IVCONT .Q20H [facility] Last Admin: 07/03/21 00:26 Dose: 10 mg/hr, 5 mls/hr Documented by: WINSOME Isosorbide Mononitrate (Isosorbide Mononitrate 60 Mg Tab.Er.24h) 60 mg PO DAILY [facility]; Protocol Last Admin: 07/03/21 10:09 Dose: 60 mg Documented by: CURTIS Meclizine HCl (Meclizine Hcl 25 Mg Tablet) 25 mg PO DAILY PRN PRN Reason: Vertigo Nitroglycerin (Nitroglycerin 0.4 Mg Tab.Subl) 0.4 mg SUBLINGUAL Q5M PRN PRN Reason: chest pain Patient Own Med( Memantine [Namenda Xr] 21 Mg Capsule) 1 each PO DAILY [facility] Last Admin: 07/03/21 10:22 Dose: 1 each Documented by: CURTIS Nystatin (Nystatin Powder 15 Gm Bottle) 1 appl TOPICAL BID [facility]; Protocol Last Admin: 07/03/21 10:19 Dose: 1 appl Documented by: CURTIS Omeprazole (Omeprazole 20 Mg Capsule.) 20 mg PO DAILY@0630 [facility] Last Admin: 07/03/21 04:49 Dose: 20 mg Documented by: WINSOME Ondansetron HCl (Ondansetron Hcl 4 Mg/2 Ml Vial) 4 mg IVPUSH Q8H PRN PRN Reason: Nausea and Vomiting Last Admin: 06/27/21 06:08 Dose: 4 mg Documented by: GIOVANNI Pregabalin (Pregabalin 50 Mg Capsule) 50 mg PO TID [facility] Last Admin: 07/03/21 10:08 Dose: 50 mg Documented by: CURTIS Rivastigmine Tartrate (Rivastigmine Tartrate 6 Mg Capsule) 6 mg PO BID [facility] Last Admin: 07/03/21 10:08 Dose: 6 mg Documented by: CURTIS Sertraline HCl (Sertraline Hcl 100 Mg Tablet) 100 mg PO DAILY [facility] Last Admin: 07/03/21 10:09 Dose: 100 mg Documented by: CURTIS Sodium Chloride (0.9 % Sodium Chloride Flush 3 Ml Syringe) 3 ml IVFLUSH QSHIFT [facility] Last Admin: 07/03/21 10:07 Dose: 3 ml Documented by: CURTIS Vitamin D (Cholecalciferol (Vitamin D3) 25 Mcg Tablet) 50 mcg PO DAILY [facility] Last Admin: 07/03/21 10:08 Dose: 50 mcg Documented by: CURTIS Labs CBC & Chem 7: 07/03/21 06:01 07/03/21 06:01 Labs: Laboratory Results - last 24 hr 07/03/21 07/03/21 07/03/21 06:01 06:01 06:01 MCV 96.0 MCH 29.0 MCHC 30.2 L RDW 14.4 Plt Count 104 L MPV 11.8 Immature Gran % (Auto) 2.3 H Neut % (Auto) 80.5 H Lymph % (Auto) 7.0 L [place] % (Auto) 10.2 Eos % (Auto) 0.0 Baso % (Auto) 0.0 Lymph # (Auto) 0.5 L [place] # (Auto) 0.7 Eos # (Auto) 0.0 Baso # (Auto) 0.0 Abs Immat Gran (auto) 0.15 H Absolute Neuts (auto) 5.3 Absolute Nucleated RBC 0.000 Nucleated RBC % (auto) 0.0 Anion Gap 13 Estim Creat Clear Calc 10.5 Estimated GFR 12 Random Glucose 186 H Calcium 8.8 Troponin I High Sens 52349.0 H* D B-Natriuretic Peptide 2992 H Crossmatch ([facility]) 07/03/21 08:48 MCV MCH MCHC RDW Plt Count MPV Immature Gran % (Auto) Neut % (Auto) Lymph % (Auto) [place] % (Auto) Eos % (Auto) Baso % (Auto) Lymph # (Auto) [place] # (Auto) Eos # (Auto) Baso # (Auto) Abs Immat Gran (auto) Absolute Neuts (auto) Absolute Nucleated RBC Nucleated RBC % (auto) Anion Gap Estim Creat Clear Calc Estimated GFR Random Glucose Calcium Troponin I High Sens B-Natriuretic Peptide Crossmatch ([facility]) See Detail Microbiology Microbiology Results: Microbiology 06/30/21 06:02 Blood Culture - Preliminary Blood - Venous No growth after 48 hours. 06/30/21 05:55 Blood Culture - Preliminary Blood - Venous No growth after 48 hours. Assessment and Plan (1) Acute congestive heart failure: Status: Acute (2) Hypoxia: Status: Acute (3) MRSA bacteremia: Status: Acute Plan 80-year-old female with past medical history significant for AFib on Eliquis, CHF who presents to the hospital with bleeding from a laceration her head found to have a large hematoma. NSTEMI trop downward trend s/p 48h heparin gtt cardiology following Echo with new WMA not a candidate for cardiac cath Acute heart failure with reduced EF ECHO from 06/30 showing severely reduced LVEF at 20-25% with new WMA s/p lasix gtt -- to start on oral diuretics, will d/w cardiology on dosing Toxic/Metabolic Encephalopathy improving, multifactorial Normal ammonia ABG 7.29/51/91/24.7 previously discussed case with ICU, No need for ICU level at this time. Recheck VBG if no improvement Brain CT negative for acute abnormality Acute hypoxic respiratory failure possibly secondary to heart failure and COVID multifactorial including COVID + acute pulm edema from her NSTEMI/CHF wean oxygen as toelrated MRSA bacteremia BCx from 06/20/2021 1/2 culture positive for MRSA, repeat BCx negative x 48 hours unclear source echo Showed EF of 60-65% with no regional wall motion abnormalities will need 4 weeks IV abx on discharge per ID tuttle placed 06/26 LINDA on CKD stage 4 worsening creatinine, possibly secondary to heart failure will continue to diurese and follow renal function closely nephro following Acute blood loss anemia secondary to hematoma s/p 2 units of PRBC, previously -- h/h slight drip, give another unit today stool occult blood negative hematoma of the head patient had a mechanical 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 intially AC was held COVID positive decadron x 10 days AFib continue amiodarone eliuquis asymptomatic bacteriuria/pyuria:? ceftriaxone stopped. UCx growing klebsiella discussed with ID, no need for treatment, pt asymptomatic HTN norvasc stopped, hydralazine started for afterload reduction nocturnal? hypoxia 2L o2 at night dvt ppx -eliquis Code status - DNR/DNI dispo: TBD Quality Stroke Does the patient have a stroke diagnosis?: No VTE Prior VTE?: No VTE Risk Level:: Medical - moderate - high VTE Device Contraindication: N/A - Device Ordered VTE Drug Contraindication: N/A - Med Ordered
[2021-07-03 10:25] LABS: Myeloperoxidase Antibody <1.0 AI; Proteinase 3 PR3 Antibodies <1.0 AI
--- NOTE | 2021-07-03 10:48 | P.PNCA_ITS ---
Subjective Subjective Date of Service: 07/03/21 Principal diagnosis: LINDA, NSTEMI, CHF Interval history: Patient denies shortness of breath. Is easily arousable. Hemodynamically stable. Complains of right wrist age discomfort. Denies palpitations. Remains in sinus rhythm. Creatinine is still elevated. Currently still on Lasix drip. Review of Systems Constitutional: Reports weakness Cardiovascular: Denies chest pain, Denies leg edema and Denies dyspnea Respiratory: Reports no additional respiratory complaints and Denies dyspnea Gastrointestinal: Reports no additional gastrointestinal complaints Genitourinary: Reports no additional female genitourinary complaints Musculoskeletal: Reports no additional musculoskeletal complaints Skin/Breast: Reports system reviewed and no additional complaints, except as docu Reports system reviewed and no additional complaints, except as documented and Reports weakness Physical Exam Vital Signs: Last Vital Signs Temp 97.5 F 07/03/21 08:00 Pulse 55 07/03/21 10:24 Resp 20 07/03/21 08:00 BP 115/60 07/03/21 10:24 Pulse Ox 99 07/03/21 10:24 BMI result Verdana 4 Body Mass Index Verdana 4 31.6 Verdana 4 Verdana 4 Const General: cooperative, comfortable, no acute distress, alert and awake Nutritional Appearance: overweight and other (Frail appearing) Orientation/consciousness: patient oriented x3 Neck Neck: Yes trachea midline, Yes supple and Yes no JVD Resp Effort & Inspection: decreased respiratory effort Auscultation: no rales, no rhonchi, no wheezes and diminished lung sounds Cardio Jugular venous distension: no JVD Rate: regular rate Rhythm: regular rhythm Heart sounds: S1 normal heart sound present, S2 normal heart sound present, no click, no gallops and no murmurs GI Auscultation: normal bowel sounds Skin General skin exam: no rashes or lesions noted and ecchymosis Neuro General: patient oriented x3 and no focal motor deficits Extrem General: Yes no clubbing, cyanosis or edema Objective Labs and Meds Result diagrams: 07/03/21 06:01 07/03/21 06:01 Lab results: Laboratory Results - last 24 hr 06/30/21 07/03/21 07/03/21 06:02 06:01 06:01 WBC 6.6 RBC 2.52 L Hgb 7.3 L Hct 24.2 L MCV 96.0 MCH 29.0 MCHC 30.2 L RDW 14.4 Plt Count 104 L MPV 11.8 Immature Gran % (Auto) 2.3 H Neut % (Auto) 80.5 H Lymph % (Auto) 7.0 L [place] % (Auto) 10.2 Eos % (Auto) 0.0 Baso % (Auto) 0.0 Lymph # (Auto) 0.5 L [place] # (Auto) 0.7 Eos # (Auto) 0.0 Baso # (Auto) 0.0 Abs Immat Gran (auto) 0.15 H Absolute Neuts (auto) 5.3 Absolute Nucleated RBC 0.000 Nucleated RBC % (auto) 0.0 Sodium 144 Potassium 4.3 Chloride 103 Carbon Dioxide 32 H Anion Gap 13 BUN 96 H Creatinine 3.74 H Estim Creat Clear Calc 10.5 Estimated GFR 12 Random Glucose 186 H Calcium 8.8 Troponin I High Sens B-Natriuretic Peptide Proteinase 3 (PR3) Ab <1.0 Myeloperoxidase Ab <1.0 Crossmatch ([facility]) 07/03/21 07/03/21 06:01 08:48 WBC RBC Hgb Hct MCV MCH MCHC RDW Plt Count MPV Immature Gran % (Auto) Neut % (Auto) Lymph % (Auto) [place] % (Auto) Eos % (Auto) Baso % (Auto) Lymph # (Auto) [place] # (Auto) Eos # (Auto) Baso # (Auto) Abs Immat Gran (auto) Absolute Neuts (auto) Absolute Nucleated RBC Nucleated RBC % (auto) Sodium Potassium Chloride Carbon Dioxide Anion Gap BUN Creatinine Estim Creat Clear Calc Estimated GFR Random Glucose Calcium Troponin I High Sens 53552.0 H* D B-Natriuretic Peptide 2992 H Proteinase 3 (PR3) Ab Myeloperoxidase Ab Crossmatch ([facility]) See Detail Imaging Radiologist's impression: Impressions Chest X-Ray 07/03/21 09:08 IMPRESSION: Enlarged heart with small left and trace right pleural effusions with adjacent atelectasis. Progress Note: A&P Assessment and plan (1) Acute congestive heart failure: Status: Acute Assessment and Plan: Patient with acute congestive heart failure and pulmonary edema due to acute myocardial infarction with significantly reduced LV ejection fraction. Patient seems to have been doing well over the last couple of days. Will transition her to p.o. diuretics. Start on Bumex 1 mg b.i.d.. Continue afterload reduction with hydralazine as well as continue Isordil therapy. Blood pressure is well optimized. Continue to closely monitor for signs and symptoms of heart failure. BNP still significantly elevated but appears to be secondary to an acute [place] as well as reduced renal clearance. Heart failure education to be provided. Patient well aware of this. Physical therapy consult an art of bed to chair today. Not sure if she continues to require oxygen may be due to poor respiratory reserves. Will benefit from maintain hematocrit above 30. Plan for transfusion 1 unit. Continue to monitor hematocrit closely Lasix 40 mg after packed RBC transfusion. (2) NSTEMI (non-ST elevated myocardial infarction): Status: Acute Assessment and Plan: Acute myocardial infarction with significantly reduced LV systolic function. Not a candidate for any interventional therapy. Overall prognosis is guarded. Has been treated with IV heparin. Currently on Eliquis. Continue statin therapy. Blood pressure is optimized. Low-dose aspirin therapy should also be prescribed. (3) Paroxysmal atrial fibrillation: Status: Acute Assessment and Plan: Paroxysmal atrial fibrillation which has remained suppressed on amiodarone therapy with has done well. She significantly anemic at this point time and continue monitor hematocrit, has been restarted on Eliquis therapy. If there persist with reduction in hematocrit may need to hold her oral anticoagulation. Will follow with you closely Fall Risk Details Current Medications: Current Medications Acetaminophen (Acetaminophen 325 Mg Tablet) 650 mg PO Q6H PRN PRN Reason: Pain, Mild (Pain Scale 1-3) Last Admin: 07/02/21 21:04 Dose: 650 mg Documented by: Albuterol Sulfate (Albuterol Sulfate 90 Mcg 8 Gm Inhaler) 2 puff INHALE Q6H PRN PRN Reason: Wheezing Albuterol/Ipratropium (Albuterol/Iprat 2.5/0.5mg 3 Ml Ampul.Neb) 3 ml INHALE RQ4H WHILE AWAKE [facility] Last Admin: 07/03/21 07:49 Dose: 3 ml Documented by: Amiodarone HCl (Amiodarone Hcl 200 Mg Tablet) 200 mg PO DAILY [facility] Last Admin: 07/03/21 10:09 Dose: 200 mg Documented by: Apixaban (Apixaban 2.5 Mg Tablet) 2.5 mg PO BID [facility] Last Admin: 07/03/21 10:09 Dose: 2.5 mg Documented by: Atorvastatin Calcium (Atorvastatin Calcium 20 Mg Tablet) 20 mg PO DAILY [facility] Last Admin: 07/03/21 10:09 Dose: 20 mg Documented by: Calcitriol (Calcitriol 0.25 Mcg Capsule) 0.25 mcg PO Q2D [facility] Last Admin: 07/03/21 04:49 Dose: 0.25 mcg Documented by: Dexamethasone Sodium Phosphate (Dexamethasone Sod Phosphate 4 Mg/Ml Vial) 6 mg IVPUSH DAILY [facility] Stop: 07/09/21 09:01 Last Admin: 07/03/21 10:07 Dose: 6 mg Documented by: Docusate Sodium (Docusate Sodium 100 Mg Capsule) 100 mg PO DAILY PRN PRN Reason: Constipation Ferrous Sulfate (Ferrous Sulfate 324 Mg Tablet.) 324 mg PO DAILY [facility] Last Admin: 07/03/21 10:08 Dose: 324 mg Documented by: Hydralazine HCl (Hydralazine Hcl 25 Mg Tablet) 25 mg PO BID [facility]; Protocol Last Admin: 07/03/21 10:09 Dose: 25 mg Documented by: Vancomycin HCl 500 mg/ Sodium (Chloride) 110 mls @ 110 mls/hr IV Q48H [facility] Last Infusion: 07/02/21 11:39 Dose: Infused Documented by: Isosorbide Mononitrate (Isosorbide Mononitrate 60 Mg Tab.Er.24h) 60 mg PO DAILY [facility]; Protocol Last Admin: 07/03/21 10:09 Dose: 60 mg Documented by: Meclizine HCl (Meclizine Hcl 25 Mg Tablet) 25 mg PO DAILY PRN PRN Reason: Vertigo Nitroglycerin (Nitroglycerin 0.4 Mg Tab.Subl) 0.4 mg SUBLINGUAL Q5M PRN PRN Reason: chest pain Patient Own Med( Memantine [Namenda Xr] 21 Mg Capsule) 1 each PO DAILY [facility] Last Admin: 07/03/21 10:22 Dose: 1 each Documented by: Nystatin (Nystatin Powder 15 Gm Bottle) 1 appl TOPICAL BID [facility]; Protocol Last Admin: 07/03/21 10:19 Dose: 1 appl Documented by: Omeprazole (Omeprazole 20 Mg Capsule.) 20 mg PO DAILY@0630 [facility] Last Admin: 07/03/21 04:49 Dose: 20 mg Documented by: Ondansetron HCl (Ondansetron Hcl 4 Mg/2 Ml Vial) 4 mg IVPUSH Q8H PRN PRN Reason: Nausea and Vomiting Last Admin: 06/27/21 06:08 Dose: 4 mg Documented by: Pregabalin (Pregabalin 50 Mg Capsule) 50 mg PO TID [facility] Last Admin: 07/03/21 10:08 Dose: 50 mg Documented by: Rivastigmine Tartrate (Rivastigmine Tartrate 6 Mg Capsule) 6 mg PO BID [facility] Last Admin: 07/03/21 10:08 Dose: 6 mg Documented by: Sertraline HCl (Sertraline Hcl 100 Mg Tablet) 100 mg PO DAILY [facility] Last Admin: 07/03/21 10:09 Dose: 100 mg Documented by: Sodium Chloride (0.9 % Sodium Chloride Flush 3 Ml Syringe) 3 ml IVFLUSH QSHIFT [facility] Last Admin: 07/03/21 10:07 Dose: 3 ml Documented by: Vitamin D (Cholecalciferol (Vitamin D3) 25 Mcg Tablet) 50 mcg PO DAILY [facility] Last Admin: 07/03/21 10:08 Dose: 50 mcg Documented by: Time Spent With Patient Time: Total time spent is greater than 50% in coordination of care (as documented) at patient's floor/unit and/or counseling patient: Time with patient: 25 - 35 minutes Progress Note: Quality Stroke Does the patient have a stroke diagnosis?: No Procedures Date of Service Date of Service: 07/03/21
--- NOTE | 2021-07-03 11:29 | HE.PHANOTE ---
Vancomycin Dosing Addendum Based on new Scr of 3.74 dose continued at 500 q 48h. Next trough 0600 on 07/04
--- NOTE | 2021-07-03 13:28 | P.PNNP_ITS ---
Subjective Subjective Date of Service: 07/03/21 Principal diagnosis: LINDA, NSTEMI, CHF Interval history: seen and examined this AM feels week, but hopes to recover denies chest pain Physical Exam Verdana 4l Vital Signs: Verdana 4d Verdana 4d Vital Signs: Verdana 4d Verdana 4Bd Last Vital Signs Verdana 4d Parts Manager New 4d Parts Manager New 4d Temp 96.9 F 07/03/21 11:27 Parts Manager New 4d Pulse 65 07/03/21 11:27 Parts Manager New 4d Resp 19 07/03/21 11:27 BP 105/59 L 07/03/21 11:27 Pulse Ox 100 07/03/21 11:27 BMI result Body Mass Index 31.6 Const: Other: General - no acute distress, appears comfortable Cardiovascular - S1S2, no JVD appreciated Lungs diminshed sounds, no resp distress Abdomen - soft, nontender, no rebound or guarding Neuro - awake and alert, no focal deficits General: cooperative, comfortable, no acute distress, well developed, alert, awake and ill appearing Nutritional Appearance: well nourished, overweight and other (Frail appearing) Orientation/consciousness: patient oriented x3 Limitations: no limitations HENMT: Other: palpable hematoma and scalp wound with no active bleeding noted, minimal tenderness Eyes: General: appearance normal, both eyes and all related structures Pupils: Equal, round and reactive pupils present Neck: Neck: Yes normal visual inspection, Yes trachea midline, Yes supple and Yes no JVD Resp: Other: diminished breath sounds Effort & Inspection: normal respiratory effort, able to speak in complete sentences, decreased respiratory effort, not labored and no respiratory distress Auscultation: clear to auscultation bilaterally, no rales, no rhonchi, no wheezes and diminished lung sounds Cardio: Jugular venous distension: no JVD Palpation: normal PMI Rate: regular rate Rhythm: regular rhythm Heart sounds: S1 normal heart sound present, S2 normal heart sound present, no click, no gallops and no murmurs Peripheral pulses: Peripheral pulses 2+ throughout GI: Inspection: Yes normal to inspection Palpation (GI): Soft to palpation and nontender Auscultation: normal bowel sounds Skin: General skin exam: no rashes or lesions noted and ecchymosis Neuro: General: patient oriented x3 and no focal motor deficits Cranial nerves: Yes CN's II-XII intact bilaterally, Yes Equal, round and reactive pupils present and Yes Bilaterally intact EOM present Cognition (Neuro): normal cognition Extrem: General: Yes normal to inspection, Yes no clubbing, cyanosis or edema, Yes no pedal edema and No edema Objective Data Labs CBC & Chem 7: 07/03/21 06:01 07/03/21 06:01 Labs: Laboratory Results - last 24 hr 06/30/21 07/03/21 07/03/21 06:02 06:01 06:01 WBC 6.6 RBC 2.52 L Hgb 7.3 L Hct 24.2 L MCV 96.0 MCH 29.0 MCHC 30.2 L RDW 14.4 Plt Count 104 L MPV 11.8 Immature Gran % (Auto) 2.3 H Neut % (Auto) 80.5 H Lymph % (Auto) 7.0 L [place] % (Auto) 10.2 Eos % (Auto) 0.0 Baso % (Auto) 0.0 Lymph # (Auto) 0.5 L [place] # (Auto) 0.7 Eos # (Auto) 0.0 Baso # (Auto) 0.0 Abs Immat Gran (auto) 0.15 H Absolute Neuts (auto) 5.3 Absolute Nucleated RBC 0.000 Nucleated RBC % (auto) 0.0 Sodium 144 Potassium 4.3 Chloride 103 Carbon Dioxide 32 H Anion Gap 13 BUN 96 H Creatinine 3.74 H Estim Creat Clear Calc 10.5 Estimated GFR 12 Random Glucose 186 H Calcium 8.8 Troponin I High Sens B-Natriuretic Peptide Proteinase 3 (PR3) Ab <1.0 Myeloperoxidase Ab <1.0 Blood Type Antibody Screen Antibody Identification Crossmatch ([facility]) 07/03/21 07/03/21 06:01 08:48 WBC RBC Hgb Hct MCV MCH MCHC RDW Plt Count MPV Immature Gran % (Auto) Neut % (Auto) Lymph % (Auto) [place] % (Auto) Eos % (Auto) Baso % (Auto) Lymph # (Auto) [place] # (Auto) Eos # (Auto) Baso # (Auto) Abs Immat Gran (auto) Absolute Neuts (auto) Absolute Nucleated RBC Nucleated RBC % (auto) Sodium Potassium Chloride Carbon Dioxide Anion Gap BUN Creatinine Estim Creat Clear Calc Estimated GFR Random Glucose Calcium Troponin I High Sens 36174.0 H* D B-Natriuretic Peptide 2992 H Proteinase 3 (PR3) Ab Myeloperoxidase Ab Blood Type A Positive Antibody Screen POSITIVE Antibody Identification Anti-c Crossmatch ([facility]) See Detail Microbiology Microbiology Results: Microbiology 06/30/21 06:02 Blood - Venous Blood Culture - Preliminary No growth after 48 hours. 06/30/21 05:55 Blood - Venous Blood Culture - Preliminary No growth after 48 hours. 06/23/21 09:58 Blood - Venous Blood Culture - Final No growth after 5 days. 06/23/21 09:58 Blood - Venous Blood Culture - Final No growth after 5 days. 06/20/21 11:28 Blood - Venous Blood Culture - Final No growth after 5 days. 06/22/21 Unknown Urine clean catch - Urine lutz top Urine Culture - Final Klebsiella pneumoniae 06/20/21 13:51 Blood - Venous Blood Culture - Final Methicillin Res Staph Aureus Procedures Date of Service Date of Service: 07/03/21 Assessment & Plan Assessment and plan (1) Acute congestive heart failure: Status: Acute Assessment and Plan: Patient with acute congestive heart failure and pulmonary edema due to acute myocardial infarction with significantly reduced LV ejection fraction. Patient seems to have been doing well over the last couple of days. Will transition her to p.o. diuretics. Start on Bumex 1 mg b.i.d.. Continue afterload reduction with hydralazine as well as continue Isordil therapy. Blood pressure is well optimized. Continue to closely monitor for signs and symptoms of heart failure. BNP still significantly elevated but appears to be secondary to an acute [place] as well as reduced renal clearance. Heart failure education to be provided. Patient well aware of this. Physical therapy consult an art of bed to chair today. Not sure if she continues to require oxygen may be due to poor respiratory reserves. Will benefit from maintain hematocrit above 30. Plan for transfusion 1 unit. Continue to monitor hematocrit closely Lasix 40 mg after packed RBC transfusion. (2) NSTEMI (non-ST elevated myocardial infarction): Status: Acute Assessment and Plan: Acute myocardial infarction with significantly reduced LV systolic function. Not a candidate for any interventional therapy. Overall prognosis is guarded. Has been treated with IV heparin. Currently on Eliquis. Continue statin therapy. Blood pressure is optimized. Low-dose aspirin therapy should also be prescribed. (3) Paroxysmal atrial fibrillation: Status: Acute Assessment and Plan: Paroxysmal atrial fibrillation which has remained suppressed on amiodarone therapy with has done well. She significantly anemic at this point time and continue monitor hematocrit, has been restarted on Eliquis therapy. If there persist with reduction in hematocrit may need to hold her oral anticoagulation. Will follow with you closely (4) Chronic kidney disease, stage 4 (severe): Status: Acute Assessment and Plan: creat baseline 2.5 range up a bit today may need some IV fluid if creat up tomorrow Time Spent With Patient Time: Total time spent is greater than 50% in coordination of care (as documented) at patient's floor/unit and/or counseling patient: Progress Note: Quality Stroke Does the patient have a stroke diagnosis?: No
--- NOTE | 2021-07-03 13:28 | MHC.SL.SWA ---
Speech Pathologist Impression: Risk of Aspiration Oralpharyngeal Dysphagia Risk of Aspiration Due to: Lethargy History of Pneumonia Reduced Cognition Dysphasia Diet Status: Downgrade Liquid Consistency and Strategies for Safe Swallow: Liquid Intake Recommendation: Thin Liquid Intake Strategies: Small Sips No Straws Solid Food Consistency: continue ground and upgrade to thin Oral Medication Intake: Crushed with Puree Compensatory Strategies and Precautions to be Taken for Safe Swallow: Sitting Upright (90 deg) Liquids from Cup Alternate Liquids/Solids Supervision While Eating and Drinking for Safe Swallow: Total Supervision (1:1) Foods to Avoid: Swallowing Recommended Treatments: Compens. Strategy Educat. Recommendation for Speech: Inpatient Speech Therapy Comment: ETYMOLOGY TEACHER to follow M-F during hospitalization. Frequency/Duration: M-F Date Range for Service Req: Timeline to reassess: Boiler Cleaner Clinican/Clinical Fellow: No Supervisory Statement: I have reviewed and agree with the student/clinical fellow's documentation: N/A Speech Language Pathologist: Britney Mark MA, CCC-ETYMOLOGY TEACHER
--- NOTE | 2021-07-03 14:44 | MHC.CLN ---
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 DIET=CARDIAC, NDD2; 1500 ML/DAY FLUID RESTRICTION. ENSURE BID PROVIDES ADDITIONAL 700 KCAL, 40 G PROTEIN TO PROMOTE WOUND HEALING. PT WITH STAGE II PRESSURE INJURY TO LEFT BUTTOCK. INTAKE VARIABLE. MONITOR PO INTAKE CLOSELY.
[2021-07-03] MEDS: Bumetanide 1 MG TABLET PO (16:42)
[2021-07-03] MEDS: Furosemide 40 MG/4 ML VIAL IVPUSH (18:26)
[2021-07-04] VITALS (8 sets, daily range): BP systolic 111–126; BP diastolic 59–75; PULSE 58–76; RESP 18–22; TEMP 36.1–37.1; O2SAT 95–98
[2021-07-04] MEDS: Omeprazole 20 MG CAPSULE.DR PO (05:47)
[2021-07-04 07:22] LABS: Hematocrit 28.6 % (37.0-47.0); Hemoglobin 8.7 g/dl (12.0-16.0); Mean Corpuscular HGB Conc 30.4 g/dl (31.0-35.0); Mean Corpuscular Hemoglobin 28.7 pg (27.0-33.0); Mean Corpuscular Volume 94.4 fL (80.0-98.0); Mean Platelet Volume 11.6 fL (9.4-12.3); Platelet Count 104 X10*3/uL (160-400); Red Blood Count 3.03 X10*6/uL (4.20-5.50); Red Cell Distribution Width 14.9 % (11.0-16.0); White Blood Count 7.4 X10*3/uL (4.8-10.8)
[2021-07-04 07:51] LABS: Anion Gap 16 (12-20); Blood Urea Nitrogen 102 mg/dL (9-16); Carbon Dioxide 32 mmol/L (22-29); Chloride 99 mmol/L (96-108); Creatinine Clr Calc Pharmacy 11.2; Estimated Glomerular Filt Rate 13; Glucose Random 121 mg/dL (60-115); Sodium 143 mmol/L (135-145); Vancomycin Random 17.3 mcg/mL (15-20)
--- NOTE | 2021-07-04 08:04 | HE.PHANOTE ---
RE Vancomycin dosing Last trough from 07/04 was 17.3 on 500mg Q48H. Scr decreased to 3.52. We will continue the same dose. Next trough scheduled for 07/06 at 0600. Please monitor renal function on 07/05.
[2021-07-04] MEDS: Ferrous Sulfate 324 MG TABLET.DR PO (08:45)
[2021-07-04] MEDS: Isosorbide Mononitrate 60 MG TAB.ER.24H PO (08:45)
[2021-07-04] MEDS: Atorvastatin Calcium 20 MG TABLET PO (08:45)
[2021-07-04] MEDS: Apixaban 2.5 MG TABLET PO ×2 (08:45→20:34)
[2021-07-04] MEDS: Amiodarone HCL 200 MG TABLET PO (08:45)
[2021-07-04] MEDS: Cholecalciferol (Vitamin D3) 25 MCG TABLET 50 MCG PO (08:45)
[2021-07-04] MEDS: Bumetanide 1 MG TABLET PO ×2 (08:45→15:51)
[2021-07-04] MEDS: hydrALAZINE HCl 25 MG TABLET PO ×2 (08:45→20:34)
[2021-07-04] MEDS: Pregabalin 50 MG CAPSULE PO ×3 (08:46→20:34)
[2021-07-04] MEDS: vancomycin HCL 500 MG in 0.9 % Sodium Chloride 100 ML 110 MG IV (08:46)
[2021-07-04] MEDS: 0.9 % Sodium Chloride Flush 3 ML SYRINGE IVFLUSH ×3 (08:46→20:34)
[2021-07-04] MEDS: Sertraline HCL 100 MG TABLET PO (08:46)
[2021-07-04] MEDS: dexAMETHasone sod phosphate 4 MG/ML VIAL 6 MG IVPUSH (08:46)
[2021-07-04] MEDS: Nystatin Powder 15 GM BOTTLE 1 APPL TOPICAL ×2 (09:06→20:34)
--- NOTE | 2021-07-04 12:47 | P.PNIM_ITS ---
Subjective Subjective Date of Service: 07/04/21 Interval History: seen and examined this morning no specific complaints this morning, feels a bit better than yesterday no chest pain or shortness of breath Review of Systems Review of Systems: Yes all other systems are reviewed and are negative Constitutional Constitutional: Denies chills and Denies fever(s) Cardiovascular Cardiovascular: Denies chest pain and Denies palpitations Endocrine Endocrine: Denies palpitations Physical Exam Verdana 4l Vital Signs: Verdana 4d Verdana 4d Vital Signs: Verdana 4d Verdana 4Bd Last Vital Signs Verdana 4d Front End Developer New 4d Front End Developer New 4d Temp 98.8 F 07/04/21 11:32 Front End Developer New 4d Pulse 68 07/04/21 11:32 Front End Developer New 4d Resp 22 H 07/04/21 11:32 BP 120/59 L 07/04/21 11:32 Pulse Ox 96 07/04/21 11:32 BMI result Body Mass Index 31.6 Const: Other: more awake today General: comfortable, alert, awake and ill appearing Nutritional Appearance: overweight Orientation/consciousness: patient oriented x3 Resp: Other: diminished breath sounds Effort & Inspection: normal respiratory effort and no respiratory distress Cardio: Rate: regular rate Rhythm: regular rhythm GI: Palpation (GI): Soft to palpation and nontender Skin: Other: ecchymosis left arm Neuro: General: patient oriented x3 Cranial nerves: Yes CN's II-XII intact bilaterally and Yes Bilaterally intact EOM present Objective Data Active Medications Acetaminophen (Acetaminophen 325 Mg Tablet) 650 mg PO Q6H PRN PRN Reason: Pain, Mild (Pain Scale 1-3) Last Admin: 07/02/21 21:04 Dose: 650 mg Documented by: WINSOME Albuterol Sulfate (Albuterol Sulfate 90 Mcg 8 Gm Inhaler) 2 puff INHALE Q6H PRN PRN Reason: Wheezing Albuterol/Ipratropium (Albuterol/Iprat 2.5/0.5mg 3 Ml Ampul.Neb) 3 ml INHALE RQ4H WHILE AWAKE [facility] Last Admin: 07/04/21 12:03 Dose: Not Given Documented by: CHIP Non-Admin Reason: pt eating Amiodarone HCl (Amiodarone Hcl 200 Mg Tablet) 200 mg PO DAILY [facility] Last Admin: 07/04/21 08:45 Dose: 200 mg Documented by: LALI Apixaban (Apixaban 2.5 Mg Tablet) 2.5 mg PO BID [facility] Last Admin: 07/04/21 08:45 Dose: 2.5 mg Documented by: LALI Atorvastatin Calcium (Atorvastatin Calcium 20 Mg Tablet) 20 mg PO DAILY [facility] Last Admin: 07/04/21 08:45 Dose: 20 mg Documented by: LALI Bumetanide (Bumetanide 1 Mg Tablet) 1 mg PO BID@0800,1700 [facility]; Protocol Last Admin: 07/04/21 08:45 Dose: 1 mg Documented by: LALI Calcitriol (Calcitriol 0.25 Mcg Capsule) 0.25 mcg PO Q2D [facility] Last Admin: 07/03/21 04:49 Dose: 0.25 mcg Documented by: WINSOME Dexamethasone Sodium Phosphate (Dexamethasone Sod Phosphate 4 Mg/Ml Vial) 6 mg IVPUSH DAILY [facility] Stop: 07/09/21 09:01 Last Admin: 07/04/21 08:46 Dose: 6 mg Documented by: LALI Docusate Sodium (Docusate Sodium 100 Mg Capsule) 100 mg PO DAILY PRN PRN Reason: Constipation Ferrous Sulfate (Ferrous Sulfate 324 Mg Tablet.Dr) 324 mg PO DAILY [facility] Last Admin: 07/04/21 08:45 Dose: 324 mg Documented by: LALI Hydralazine HCl (Hydralazine Hcl 25 Mg Tablet) 25 mg PO BID [facility]; Protocol Last Admin: 07/04/21 08:45 Dose: 25 mg Documented by: LALI Vancomycin HCl 500 mg/ Sodium (Chloride) 110 mls @ 110 mls/hr IV Q48H [facility] Last Infusion: 07/04/21 11:53 Dose: 110 mls/hr Documented by: LALI Isosorbide Mononitrate (Isosorbide Mononitrate 60 Mg Tab.Er.24h) 60 mg PO DAILY [facility]; Protocol Last Admin: 07/04/21 08:45 Dose: 60 mg Documented by: LALI Meclizine HCl (Meclizine Hcl 25 Mg Tablet) 25 mg PO DAILY PRN PRN Reason: Vertigo Nitroglycerin (Nitroglycerin 0.4 Mg Tab.Subl) 0.4 mg SUBLINGUAL Q5M PRN PRN Reason: chest pain Patient Own Med( Memantine [Namenda Xr] 21 Mg Capsule) 1 each PO DAILY [facility] Last Admin: 07/04/21 11:45 Dose: 1 each Documented by: ALLI Nystatin (Nystatin Powder 15 Gm Bottle) 1 appl TOPICAL BID [facility]; Protocol Last Admin: 07/04/21 09:06 Dose: 1 appl Documented by: LALI Omeprazole (Omeprazole 20 Mg Capsule.) 20 mg PO DAILY@0630 [facility] Last Admin: 07/04/21 05:47 Dose: 20 mg Documented by: ANTYANNI Ondansetron HCl (Ondansetron Hcl 4 Mg/2 Ml Vial) 4 mg IVPUSH Q8H PRN PRN Reason: Nausea and Vomiting Last Admin: 06/27/21 06:08 Dose: 4 mg Documented by: GIOVANNI Pregabalin (Pregabalin 50 Mg Capsule) 50 mg PO TID [facility] Last Admin: 07/04/21 08:46 Dose: 50 mg Documented by: LALI Rivastigmine Tartrate (Rivastigmine Tartrate 6 Mg Capsule) 6 mg PO BID [facility] Last Admin: 07/04/21 08:45 Dose: 6 mg Documented by: LALI Sertraline HCl (Sertraline Hcl 100 Mg Tablet) 100 mg PO DAILY [facility] Last Admin: 07/04/21 08:46 Dose: 100 mg Documented by: LALI Sodium Chloride (0.9 % Sodium Chloride Flush 3 Ml Syringe) 3 ml IVFLUSH QSHIFT [facility] Last Admin: 07/04/21 08:46 Dose: 3 ml Documented by: LALI Vitamin D (Cholecalciferol (Vitamin D3) 25 Mcg Tablet) 50 mcg PO DAILY [facility] Last Admin: 07/04/21 08:45 Dose: 50 mcg Documented by: LALI Labs CBC & Chem 7: 07/04/21 06:47 07/04/21 06:47 Labs: Laboratory Results - last 24 hr 07/03/21 07/04/21 07/04/21 08:48 06:47 06:47 MCV 94.4 MCH 28.7 MCHC 30.4 L RDW 14.9 Plt Count 104 L MPV 11.6 Absolute Nucleated RBC 0.000 Nucleated RBC % (auto) 0.0 Anion Gap 16 Estim Creat Clear Calc 11.2 Estimated GFR 13 Random Glucose 121 H Calcium 9.0 Random Vancomycin Blood Type A Positive Antibody Screen POSITIVE Antibody Identification Anti-c Crossmatch ([facility]) See Detail 07/04/21 06:47 MCV MCH MCHC RDW Plt Count MPV Absolute Nucleated RBC Nucleated RBC % (auto) Anion Gap Estim Creat Clear Calc Estimated GFR Random Glucose Calcium Random Vancomycin 17.3 Blood Type Antibody Screen Antibody Identification Crossmatch ([facility]) Assessment and Plan (1) MRSA bacteremia: Status: Acute (2) SARS-CoV-2 positive: Status: Acute (3) Acute congestive heart failure: Status: Acute Plan 80-year-old female with past medical history significant for AFib on Eliquis, CHF who presents to the hospital with bleeding from a laceration her head found to have a large hematoma. NSTEMI trop downward trend s/p 48h heparin gtt cardiology following Echo with new WMA not a candidate for cardiac cath LINDA on CKD stage 4 creatinine somewhat better today but still significantly elevated from previous baseline follow renal function closely nephro following Acute heart failure with reduced EF ECHO from 06/30 showing severely reduced LVEF at 20-25% with new WMA s/p lasix gtt -transitioned to po bumex Toxic/Metabolic Encephalopathy improving, multifactorial Normal ammonia ABG 7.29/51/91/24.[address] negative for acute abnormality Acute hypoxic respiratory failure possibly secondary to heart failure and COVID multifactorial including COVID + acute pulm edema from her NSTEMI/CHF wean oxygen as tolerated MRSA bacteremia BCx from 06/20/202106/07 culture positive for MRSA, repeat BCx from 06/23 negative x 48 hours unclear source echo no evidence of endocarditis will need 4 weeks IV abx on discharge, 4 weeks from first negative blood culture (06/23) (end date 07/21) tuttle placed 06/26 Acute blood loss anemia secondary to hematoma s/p 2 units of PRBC, previously -tranfused additional unit 07/03 with improvment in H/H stool occult blood negative thrombocytopenia platelets stable follow cbc hematoma of the head patient had a mechanical fall 3 weeks [employer], 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 intially AC was held COVID positive decadron x 10 days AFib continue amiodarone eliquis asymptomatic bacteriuria/pyuria:? ceftriaxone stopped. UCx growing klebsiella discussed with ID, no need for treatment, pt asymptomatic HTN norvasc stopped, hydralazine started for afterload reduction nocturnal? hypoxia 2L o2 at night dvt ppx -eliquis Code status - DNR/DNI dispo: significant deconditioning, will need STR, possibly by Tuesday attending; dr krishna Quality Stroke Does the patient have a stroke diagnosis?: No VTE Prior VTE?: No VTE Risk Level:: Medical - moderate - high VTE Device Contraindication: N/A - Device Ordered VTE Drug Contraindication: N/A - Med Ordered
--- NOTE | 2021-07-04 13:21 | P.PNNP_ITS ---
Subjective Subjective Date of Service: 07/04/21 Principal diagnosis: LINDA, NSTEMI, CHF Interval history: Physical Exam Verdana 4l Vital Signs: Verdana 4d Verdana 4d Vital Signs: Verdana 4d Verdana 4Bd Last Vital Signs Verdana 4d Senior Clinical Data Manager New 4d Senior Clinical Data Manager New 4d Temp 98.8 F 07/04/21 11:32 Senior Clinical Data Manager New 4d Pulse 68 07/04/21 11:32 Senior Clinical Data Manager New 4d Resp 22 H 07/04/21 11:32 BP 120/59 L 07/04/21 11:32 Pulse Ox 96 07/04/21 11:32 BMI result Body Mass Index 31.6 Const: Other: more awake today General: cooperative, comfortable, no acute distress, well developed, alert, awake and ill appearing Nutritional Appearance: well nourished, overweight and other (Frail appearing) Orientation/consciousness: patient oriented x3 Limitations: no limitations HENMT: Other: palpable hematoma and scalp wound with no active bleeding noted, minimal tenderness Eyes: General: appearance normal, both eyes and all related structures Pupils: Equal, round and reactive pupils present Neck: Neck: Yes normal visual inspection, Yes trachea midline, Yes supple and Yes no JVD Resp: Other: diminished breath sounds Effort & Inspection: normal respiratory effort, able to speak in complete sentences, decreased respiratory effort, not labored and no respiratory distress Auscultation: clear to auscultation bilaterally, no rales, no rhonchi, no wheezes and diminished lung sounds Cardio: Jugular venous distension: no JVD Palpation: normal PMI Rate: regular rate Rhythm: regular rhythm Heart sounds: S1 normal heart sound present, S2 normal heart sound present, no click, no gallops and no murmurs Peripheral pulses: Peripheral pulses 2+ throughout GI: Inspection: Yes normal to inspection Palpation (GI): Soft to palpation and nontender Auscultation: normal bowel sounds Skin: Other: ecchymosis left arm General skin exam: no rashes or lesions noted and ecchymosis Neuro: General: patient oriented x3 and no focal motor deficits Cranial nerves: Yes CN's II-XII intact bilaterally, Yes Equal, round and reactive pupils present and Yes Bilaterally intact EOM present Cognition (Neuro): normal cognition Extrem: General: Yes normal to inspection, Yes no clubbing, cyanosis or edema, Yes no pedal edema and No edema Objective Data Labs CBC & Chem 7: 07/04/21 06:47 07/04/21 06:47 Labs: Laboratory Results - last 24 hr 07/03/21 07/04/21 07/04/21 08:48 06:47 06:47 WBC 7.4 RBC 3.03 L D Hgb 8.7 L Hct 28.6 L MCV 94.4 MCH 28.7 MCHC 30.4 L RDW 14.9 Plt Count 104 L MPV 11.6 Absolute Nucleated RBC 0.000 Nucleated RBC % (auto) 0.0 Sodium 143 Potassium 4.0 Chloride 99 Carbon Dioxide 32 H Anion Gap 16 BUN 102 H Creatinine 3.52 H Estim Creat Clear Calc 11.2 Estimated GFR 13 Random Glucose 121 H Calcium 9.0 Random Vancomycin Blood Type A Positive Antibody Screen POSITIVE Antibody Identification Anti-c Crossmatch ([facility]) See Detail 07/04/21 06:47 WBC RBC Hgb Hct MCV MCH MCHC RDW Plt Count MPV Absolute Nucleated RBC Nucleated RBC % (auto) Sodium Potassium Chloride Carbon Dioxide Anion Gap BUN Creatinine Estim Creat Clear Calc Estimated GFR Random Glucose Calcium Random Vancomycin 17.3 Blood Type Antibody Screen Antibody Identification Crossmatch ([facility]) Microbiology Microbiology Results: Microbiology 06/30/21 06:02 Blood - Venous Blood Culture - Preliminary No growth after 48 hours. 06/30/21 05:55 Blood - Venous Blood Culture - Preliminary No growth after 48 hours. 06/23/21 09:58 Blood - Venous Blood Culture - Final No growth after 5 days. 06/23/21 09:58 Blood - Venous Blood Culture - Final No growth after 5 days. 06/20/21 11:28 Blood - Venous Blood Culture - Final No growth after 5 days. 06/22/21 Unknown Urine clean catch - Urine lutz top Urine Culture - Final Klebsiella pneumoniae 06/20/21 13:51 Blood - Venous Blood Culture - Final Methicillin Res Staph Aureus Procedures Date of Service Date of Service: 07/04/21 Assessment & Plan Assessment and plan (1) MRSA bacteremia: Status: Acute (2) SARS-CoV-2 positive: Status: Acute (3) Acute congestive heart failure: Status: Acute Plan 80-year-old female with past medical history significant for AFib on Eliquis, CHF who presents to the hospital with bleeding from a laceration her head found to have a large hematoma. LINDA on CKD stage 4 creatinine somewhat better today but still significantly elevated from previous baseline Acute heart failure with reduced EF ECHO from 06/30 showing severely reduced LVEF at 20-25% with new WMA COVID positive decadron x 10 days no new suggestions Time Spent With Patient Time: Total time spent is greater than 50% in coordination of care (as documented) at patient's floor/unit and/or counseling patient: Progress Note: Quality Stroke Does the patient have a stroke diagnosis?: No
[2021-07-04] MEDS: Albuterol/Iprat 2.5/0.5MG 3 ML AMPUL.NEB INHALE (16:03)
[2021-07-05] VITALS (10 sets, daily range): BP systolic 108–137; BP diastolic 52–70; PULSE 60–74; RESP 18–20; TEMP 36.4–37.2; O2SAT 94–100
[2021-07-05] MEDS: Omeprazole 20 MG CAPSULE.DR PO (04:32)
[2021-07-05 06:33] LABS: Hemoglobin 8.7 g/dl (12.0-16.0); Monocytes Absolute Auto 0.8 X10*3/uL (0.1-1.2); Monocytes Percent Auto 8.7 % (2-11); PLT CLUMP 1; SCAN SMEAR FLAG 1
[2021-07-05 06:35] LABS: Basophils Percent Auto 0.2 % (0-2); Eosinophils Percent Auto 0.1 % (0-4); Hematocrit 27.5 % (37.0-47.0); Imm Gran Abs Auto 0.35 X10*3/uL (0.00-0.03); Lymphocytes Absolute Auto 0.5 X10*3/uL (1.2-4.9); Lymphocytes Percent Auto 5.3 % (20-40); MANUAL DIFF FLAG SCAN; Mean Corpuscular HGB Conc 31.6 g/dl (31.0-35.0); Mean Corpuscular Hemoglobin 29.4 pg (27.0-33.0); Mean Corpuscular Volume 92.9 fL (80.0-98.0); Mean Platelet Volume 12.2 fL (9.4-12.3); Neutrophils Absolute Auto 7.2 x10*3/uL (2.0-8.3); Neutrophils Percent Auto 81.7 % (45-73); Red Blood Count 2.96 X10*6/uL (4.20-5.50); Red Cell Distribution Width 14.5 % (11.0-16.0)
[2021-07-05 06:44] LABS: White Blood Count 8.8 X10*3/uL (4.8-10.8)
[2021-07-05 06:45] LABS: Platelet Count 93 X10*3/uL (160-400)
[2021-07-05 07:20] LABS: Anion Gap 17 (12-20); Blood Urea Nitrogen 108 mg/dL (9-16); Carbon Dioxide 30 mmol/L (22-29); Chloride 98 mmol/L (96-108); Creatinine Clr Calc Pharmacy 11.7; Estimated Glomerular Filt Rate 13; Glucose Random 132 mg/dL (60-115); Potassium 4.3 mmol/L (3.3-5.1); Sodium 141 mmol/L (135-145)
[2021-07-05] MEDS: Albuterol/Iprat 2.5/0.5MG 3 ML AMPUL.NEB INHALE ×4 (07:42→19:06)
[2021-07-05 07:59] LABS: SLIDE REVIEW VERIFIED
[2021-07-05] MEDS: Apixaban 2.5 MG TABLET PO ×2 (09:13→20:33)
[2021-07-05] MEDS: Bumetanide 1 MG TABLET PO ×2 (09:13→16:25)
[2021-07-05] MEDS: Cholecalciferol (Vitamin D3) 25 MCG TABLET 50 MCG PO (09:13)
[2021-07-05] MEDS: calcitrioL 0.25 MCG CAPSULE PO (09:13)
[2021-07-05] MEDS: Pregabalin 50 MG CAPSULE PO ×3 (09:14→20:33)
[2021-07-05] MEDS: dexAMETHasone sod phosphate 4 MG/ML VIAL 6 MG IVPUSH (09:14)
[2021-07-05] MEDS: Ferrous Sulfate 324 MG TABLET.DR PO (09:14)
[2021-07-05] MEDS: Sertraline HCL 100 MG TABLET PO (09:14)
[2021-07-05] MEDS: Atorvastatin Calcium 20 MG TABLET PO (09:14)
[2021-07-05] MEDS: Amiodarone HCL 200 MG TABLET PO (09:14)
[2021-07-05] MEDS: 0.9 % Sodium Chloride Flush 3 ML SYRINGE IVFLUSH (09:15)
--- NOTE | 2021-07-05 12:09 | P.PNIM_ITS ---
Subjective Subjective Date of Service: 07/05/21 Interval History: seen and examined this morning reports feeling well no shortness of breath or chest pain has not been out of bed Constitutional Constitutional: Denies chills and Denies fever(s) Cardiovascular Cardiovascular: Denies palpitations and Denies dyspnea on exertion Respiratory Respiratory: Denies cough and Denies dyspnea on exertion Gastrointestinal Gastrointestinal: Denies abdominal pain Endocrine Endocrine: Denies palpitations Physical Exam Verdana 4l Vital Signs: Verdana 4d Verdana 4d Vital Signs: Verdana 4d Verdana 4Bd Last Vital Signs Verdana 4d Automotive Software Engineer New 4d Automotive Software Engineer New 4d Temp 98.9 F 07/05/21 07:43 Automotive Software Engineer New 4d Pulse 67 07/05/21 11:59 Automotive Software Engineer New 4d Resp 18 07/05/21 11:59 BP 108/52 L 07/05/21 08:59 Pulse Ox 100 07/05/21 07:43 BMI result Body Mass Index 31.6 Const: Other: appears to have more energy this morning General: comfortable, no acute di stress, alert and awake Nutritional Appearance: overweight Resp: Other: diminished at bases, otherwise clear Effort & Inspection: normal respiratory effort, able to speak in complete sentences and no respiratory distress GI: Palpation (GI): Soft to palpation and nontender Neuro: Cranial nerves: Yes CN's II-XII intact bilaterally and Yes Bilaterally intact EOM present Objective Data Active Medications Acetaminophen (Acetaminophen 325 Mg Tablet) 650 mg PO Q6H PRN PRN Reason: Pain, Mild (Pain Scale 1-3) Last Admin: 07/02/21 21:04 Dose: 650 mg Documented by: WINSOME Albuterol Sulfate (Albuterol Sulfate 90 Mcg 8 Gm Inhaler) 2 puff INHALE Q6H PRN PRN Reason: Wheezing Albuterol/Ipratropium (Albuterol/Iprat 2.5/0.5mg 3 Ml Ampul.Neb) 3 ml INHALE RQ4H WHILE AWAKE [facility] Last Admin: 07/05/21 11:57 Dose: 3 ml Documented by: GORDON Amiodarone HCl (Amiodarone Hcl 200 Mg Tablet) 200 mg PO DAILY [facility] Last Admin: 07/05/21 09:14 Dose: 200 mg Documented by: MINH Apixaban (Apixaban 2.5 Mg Tablet) 2.5 mg PO BID [facility] Last Admin: 07/05/21 09:13 Dose: 2.5 mg Documented by: MINH Atorvastatin Calcium (Atorvastatin Calcium 20 Mg Tablet) 20 mg PO DAILY [facility] Last Admin: 07/05/21 09:14 Dose: 20 mg Documented by: MINH Bumetanide (Bumetanide 1 Mg Tablet) 1 mg PO BID@0800,1700 [facility]; Protocol Last Admin: 07/05/21 09:13 Dose: 1 mg Documented by: MINH Calcitriol (Calcitriol 0.25 Mcg Capsule) 0.25 mcg PO Q2D [facility] Last Admin: 07/05/21 09:13 Dose: 0.25 mcg Documented by: MINH Dexamethasone Sodium Phosphate (Dexamethasone Sod Phosphate 4 Mg/Ml Vial) 6 mg IVPUSH DAILY [facility] Stop: 07/09/21 09:01 Last Admin: 07/05/21 09:14 Dose: 6 mg Documented by: MINH Docusate Sodium (Docusate Sodium 100 Mg Capsule) 100 mg PO DAILY PRN PRN Reason: Constipation Ferrous Sulfate (Ferrous Sulfate 324 Mg Tablet.Dr) 324 mg PO DAILY [facility] Last Admin: 07/05/21 09:14 Dose: 324 mg Documented by: MINH Hydralazine HCl (Hydralazine Hcl 25 Mg Tablet) 25 mg PO BID [facility]; Protocol Last Admin: 07/05/21 09:04 Dose: Not Given Documented by: MINH Non-Admin Reason: Decreased Blood Pressure Vancomycin HCl 500 mg/ Sodium (Chloride) 110 mls @ 110 mls/hr IV Q48H [facility] Last Infusion: 07/04/21 11:53 Dose: 110 mls/hr Documented by: LALI Isosorbide Mononitrate (Isosorbide Mononitrate 60 Mg Tab.Er.24h) 60 mg PO DAILY [facility]; Protocol Last Admin: 07/05/21 09:04 Dose: Not Given Documented by: MINH Non-Admin Reason: Decreased Blood Pressure Meclizine HCl (Meclizine Hcl 25 Mg Tablet) 25 mg PO DAILY PRN PRN Reason: Vertigo Nitroglycerin (Nitroglycerin 0.4 Mg Tab.Subl) 0.4 mg SUBLINGUAL Q5M PRN PRN Reason: chest pain Patient Own Med( Memantine [Namenda Xr] 21 Mg Capsule) 1 each PO DAILY [facility] Last Admin: 07/05/21 09:12 Dose: 1 each Documented by: MINH Nystatin (Nystatin Powder 15 Gm Bottle) 1 appl TOPICAL BID [facility]; Protocol Last Admin: 07/05/21 09:27 Dose: Not Given Documented by: MINH Non-Admin Reason: Med Not Available Comments: CALLED FOR NEW BOTTLE Omeprazole (Omeprazole 20 Mg Capsule.) 20 mg PO DAILY@0630 [facility] Last Admin: 07/05/21 04:32 Dose: 20 mg Documented by: ANTYANNI Ondansetron HCl (Ondansetron Hcl 4 Mg/2 Ml Vial) 4 mg IVPUSH Q8H PRN PRN Reason: Nausea and Vomiting Last Admin: 06/27/21 06:08 Dose: 4 mg Documented by: GIOVANNI Pregabalin (Pregabalin 50 Mg Capsule) 50 mg PO TID [facility] Last Admin: 07/05/21 09:14 Dose: 50 mg Documented by: MINH Rivastigmine Tartrate (Rivastigmine Tartrate 6 Mg Capsule) 6 mg PO BID [facility] Last Admin: 07/05/21 09:12 Dose: 6 mg Documented by: MINH Sertraline HCl (Sertraline Hcl 100 Mg Tablet) 100 mg PO DAILY [facility] Last Admin: 07/05/21 09:14 Dose: 100 mg Documented by: MINH Sodium Chloride (0.9 % Sodium Chloride Flush 3 Ml Syringe) 3 ml IVFLUSH QSHIFT [facility] Last Admin: 07/05/21 09:15 Dose: 3 ml Documented by: MINH Vitamin D (Cholecalciferol (Vitamin D3) 25 Mcg Tablet) 50 mcg PO DAILY [facility] Last Admin: 07/05/21 09:13 Dose: 50 mcg Documented by: MINH Labs CBC & Chem 7: 07/05/21 06:01 07/05/21 06:01 Labs: Laboratory Results - last 24 hr 07/05/21 07/05/21 06:01 06:01 MCV 92.9 MCH 29.4 MCHC 31.6 RDW 14.5 Plt Count 93 L MPV 12.2 Immature Gran % (Auto) 4.0 H Neut % (Auto) 81.7 H Lymph % (Auto) 5.3 L [place] % (Auto) 8.7 Eos % (Auto) 0.1 Baso % (Auto) 0.2 Lymph # (Auto) 0.5 L [place] # (Auto) 0.8 Eos # (Auto) 0.0 Baso # (Auto) 0.0 Abs Immat Gran (auto) 0.35 H Absolute Neuts (auto) 7.2 Absolute Nucleated RBC 0.000 Nucleated RBC % (auto) 0.0 Smear Tech's Comments VERIFIED Anion Gap 17 Estim Creat Clear Calc 11.7 Estimated GFR 13 Random Glucose 132 H Calcium 9.0 Microbiology Microbiology Results: Microbiology 06/30/21 06:02 Blood Culture - Final Blood - Venous No growth after 5 days. 06/30/21 05:55 Blood Culture - Final Blood - Venous No growth after 5 days. Assessment and Plan (1) Acute congestive heart failure: Status: Acute (2) Bacteremia: Status: Acute (3) NSTEMI (non-ST elevated myocardial infarction): Status: Acute (4) Thrombocytopenia: Status: Chronic (5) Acute blood loss anemia: Status: Acute (6) SARS-CoV-2 positive: Status: Acute Plan 80-year-old female with past medical history significant for AFib on Eliquis, CHF who presents to the hospital with bleeding from a laceration her head found to have a large hematoma. NSTEMI trop downward trend s/p 48h heparin gtt cardiology following Echo with new WMA not a candidate for cardiac cath continue imdur, statin outpatient cardiology follow up LINDA on CKD stage 4 creatinine trending down but still significantly elevated from previous baseline follow BMP nephro following - outpatient follow up Acute heart failure with reduced EF ECHO from 06/30 showing severely reduced LVEF at 20-25% with new WMA s/p lasix gtt -transitioned to po bumex Toxic/Metabolic Encephalopathy resolved Normal ammonia ABG 7.29/51/91/24.[address] negative for acute abnormality Acute hypoxic respiratory failure possibly secondary to heart failure and COVID multifactorial including COVID + acute pulm edema from her NSTEMI/CHF wean oxygen as tolerated MRSA bacteremia BCx from 06/20/2021 1 culture positive for MRSA, repeat BCx from 06/23 negative x 48 hours unclear source echo no evidence of endocarditis will need 4 weeks IV abx on discharge, 4 weeks from first negative blood culture (06/23) (end date 07/21) tuttle placed 06/26 Acute blood loss anemia secondary to hematoma s/p 2 units of PRBC, previously -tranfused additional unit 07/03 with improvement in H/H stool occult blood negative H/H has been stable continue po iron replacement thrombocytopenia platelets stable follow cbc hematoma of the head patient had a mechanical fall 3 weeks [employer], 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 intially AC was held [address] COVID positive decadron x 10 days AFib continue amiodarone AC with eliquis asymptomatic bacteriuria/pyuria:? ceftriaxone stopped. UCx growing klebsiella discussed with ID, no need for treatment, pt asymptomatic HTN norvasc stopped, hydralazine started for afterload reduction nocturnal? hypoxia 2L o2 at night dvt ppx -eliquis Code status - DNR/DNI dispo: significant deconditioning, will need STR, CM aware attending; dr Torres Quality Stroke Does the patient have a stroke diagnosis?: No VTE Prior VTE?: No VTE Risk Level:: Medical - moderate - high VTE Device Contraindication: N/A - Device Ordered VTE Drug Contraindication: N/A - Med Ordered
[2021-07-05] MEDS: hydrALAZINE HCl 25 MG TABLET PO (20:33)
[2021-07-06 03:44] VITALS: BP 103/54; PULSE 54; RESP 18; TEMP 36.4; O2SAT 99
[2021-07-06] MEDS: Omeprazole 20 MG CAPSULE.DR PO (05:34)
[2021-07-06 06:39] LABS: Vancomycin Random 15.6 mcg/mL (15-20)
[2021-07-06 07:28] VITALS: BP 120/68; PULSE 68; RESP 16; TEMP 35.6; O2SAT 99
[2021-07-06 08:08] LABS: Creatinine Clr Calc Pharmacy 12.4; Estimated Glomerular Filt Rate 14
[2021-07-06] MEDS: 0.9 % Sodium Chloride Flush 3 ML SYRINGE IVFLUSH (08:22)
[2021-07-06] MEDS: dexAMETHasone sod phosphate 4 MG/ML VIAL 6 MG IVPUSH (08:23)
[2021-07-06] MEDS: vancomycin HCL 500 MG in 0.9 % Sodium Chloride 100 ML 110 MG IV (08:23)
[2021-07-06] MEDS: Sertraline HCL 100 MG TABLET PO (08:23)
[2021-07-06] MEDS: hydrALAZINE HCl 25 MG TABLET PO (08:23)
[2021-07-06] MEDS: Pregabalin 50 MG CAPSULE PO (08:24)
[2021-07-06] MEDS: Ferrous Sulfate 324 MG TABLET.DR PO (08:24)
[2021-07-06] MEDS: Bumetanide 1 MG TABLET PO (08:24)
[2021-07-06] MEDS: Cholecalciferol (Vitamin D3) 25 MCG TABLET 50 MCG PO (08:24)
[2021-07-06] MEDS: Isosorbide Mononitrate 60 MG TAB.ER.24H PO (08:24)
[2021-07-06] MEDS: Apixaban 2.5 MG TABLET PO (08:24)
[2021-07-06] MEDS: Amiodarone HCL 200 MG TABLET PO (08:24)
[2021-07-06] MEDS: Atorvastatin Calcium 20 MG TABLET PO (08:24)
--- NOTE | 2021-07-06 08:59 | HE.PHANOTE ---
Patients cr decreased 3.19, trough 15.6, gave one dose today, cr tommorrow and trough on 07/08
[2021-07-06 11:01] VITALS: BP 120/67; PULSE 60; RESP 16; TEMP 37.1; O2SAT 98
--- NOTE | 2021-07-06 11:08 | P.DS_ITS ---
DS: Providers Provider Date of Service: 07/06/21 Date of admission: 06/23/21 14:30 Primary care physician: Anthony Titus MD Consults: 06/21/21 07:27 Consult to General Surgery Routine Consulting Provider: Stu Fragoso Reason for consultation: hematoma Has provider been notified: No 06/22/21 08:59 Consult to Nephrology Routine Consulting Provider: Jc Alexandre Reason for consultation: linda on ckd Has provider been notified: No 06/22/21 11:26 Consult to Infectious Diseases Routine Consulting Provider: Petra Oakes Reason for consultation: bacteremia Has provider been notified: No 06/25/21 11:18 Consult to Cardiology Routine Consulting Provider: Kenn Gamez Reason for consultation: chest pain, elevated trops Has provider been notified: No 06/29/21 08:41 Consult to Infectious Diseases Stat Consulting Provider: Petra Oakes Reason for consultation: RESTRICTED ABX 06/29/21 10:25 Consult to Critical Care Routine Consulting Provider: Vinny Cast Reason for consultation: Bipap Has provider been notified: No Attending physician on discharge: Kai Dc Discharging clinician: Stephanie Hills DS: Diagnosis Discharge Diagnosis (1) Aspiration pneumonia: Status: Acute (2) Hypoxia: Status: Acute (3) MRSA bacteremia: Status: Acute (4) Acute congestive heart failure: Status: Acute (5) Anemia: Status: Acute DS: Summary Hospital Course Hospital Course: 80-year-old female with past medical history of CHF with preserved ejection fraction, AFib, anemia, anxiety, aortic valve stenosis status post TAVR, asthma, CAD, CKD, COPD, diabetes,? hyperlipidemia among others who presents the hospital with complaints of bleeding from her laceration head.? Patient reports that about 3 weeks ago she had a mechanical fall and developed a lump in her head.? About 4 days ago she started bleeding profusely from this lump.? She tried to treated at home with pads and sleeping upright in a chair but she continued to have profuse bleeding therefore came into the hospital.? She is reporting that she is feeling dizzy, generalized weakness, but otherwise has no headache, change in vision, no chest pain and no shortness of breath.? She was diagnosed with COVID 19? about 2 weeks ago, but? only has a cough and feels no shortness of breath, denies any fever or chills, no abdominal pain nausea or vomiting, no diarrhea constipation, no urinary symptoms and no lower extremity edema.? On arrival to the ED patient found to be hemodynamically stable with no significant abnormal vitals Labs are significant for? initial hemoglobin of 8.5 that dropped to 7.2 despite receiving 1 unit of PRBC, on repeat CBC few hours later patient dropped even further from 7.2-7.3.? Patient is receiving a 2nd unit of PRBC and will be admitted for further management.? She has no other significant abnormal vitals except for lactic acid of 2.3 that resolved.? Slightly elevated a EULALIA a has a 2, positive COVID-19. ? Occult stool negative x2. Head CT revealed large central and right occipital hematoma with laceration and nondisplaced left occipital fracture.? Old healed fracture posterior C2 base. Hospital course patient came with scalp hematoma, and occipital fracture -status post fall 3-4 weeks back - patient anemia required transfusion, received 3 PRBC. Hemoglobin is stable around 8/9, fecal occult blood negative x2. Discussed with Cardiology and surgery, initially anticoagulation held for 5 days prior to restarting eliquis LINDA on CKD stage 4. Seems to be staying around 3's, discussed with nephro, she will follow up o/p creatinine trending down but still significantly elevated from previous baseline Acute heart failure with reduced EF ECHO from 06/30 showing severely reduced LVEF at 20-25% with new WMA s/p lasix gtt -transitioned to po bumex Toxic/Metabolic Encephalopathy. Likley secondary to NSTEMI resolved Acute hypoxic respiratory failure possibly secondary to heart failure and COVID multifactorial including COVID + acute pulm edema from her NSTEMI/CHF MRSA bacteremia BCx from 06/20/202106/07 culture positive for MRSA, repeat BCx from 06/23 negative x 48 hours unclear source echo no evidence of endocarditis will need 4 weeks IV abx on discharge, 4 weeks from first negative blood culture (06/23) (end date 07/21) tuttle catheter placed 06/26 Acute blood loss anemia secondary to hematoma s/p 3 units of PRBC, previously -tranfused additional unit 07/03 with improvement in H/H stool occult blood negative H/H has been stable continue po iron replacement Time Spent with Patient Time attestation: Total time spent providing and/or coordinating discharge services: Discharge coordination time: Greater than 30 minutes Quality: Stroke Does the patient have a stroke diagnosis?: No Physical Exam Verdana 4l Vital Signs: Verdana 4d Verdana 4d Vital Signs: Verdana 4d Verdana 4Bd Last Vital Signs Verdana 4d Scallop Cutter Machine New 4d Scallop Cutter Machine New 4d Temp 98.8 F 07/06/21 11:01 Scallop Cutter Machine New 4d Pulse 60 07/06/21 11:01 Scallop Cutter Machine New 4d Resp 16 07/06/21 11:01 BP 120/67 07/06/21 11:01 Pulse Ox 98 07/06/21 11:01 BMI result Body Mass Index 31.6 Appearing in no acute distress head is normocephalic atraumatic eyes pupils are PERRLA sclera is anicteric mouth throat mucous membranes are intact and moist neck is supple no lymphadenopathy, no JVD noted lung sounds are clear to auscultation heart regular rate rhythm, clear S1, S2 positive bowel sounds, abdomen is soft, nontender neuro patient is alert x3, no focal deficits DS: Data Data Completed and Pending Completed studies during hospitalization [Text1]: Pending at discharge 06/20/21 15:07 Surgical [PTH] Stat Procedures Extirpation of Matter from Right Upper Leg Subcutaneous Tissue and Fascia, Open Approach (07/24/20) Insertion of Infusion Device into Superior Vena Cava, Percutaneous Approach (07/24/20) Transfusion of Nonautologous Red Blood Cells into Peripheral Vein, Percutaneous Approach (07/24/20) Ultrasonography of Superior Vena Cava, Guidance (07/24/20) Labs on day of discharge: Laboratory Results - last 24 hr 07/06/21 07/06/21 05:34 05:34 Creatinine 3.19 H Estim Creat Clear Calc 12.4 Estimated GFR 14 Random Vancomycin 15.6 Discharge Plan Discharge Anticipated Discharge Date/Time: 07/06/21 12:54 Patient Disposition: Xfer Inpatient Rehab Fac Discharge Diagnosis: Scalp hematoma Fall LINDA Metabolic encephalopathy HFrEF MRSA bacteremia Referrals: [facility] [Outside] - 1 Week Anthony Titus MD [Primary Care Provider] - 1 Week Ad Harrison MD [Physician] - 1 Week (RENAL FUNCTION ) Discharge Medications: New vancomycin in 0.9 % sodium chl 500 mg/100 mL piggyback 500 mg IV Q48H Qty: 1200 0RF Continued ferrous sulfate 325 mg (65 mg iron) tablet 325 mg PO DAILY Qty: 90 1RF sertraline 100 mg tablet 100 mg PO DAILY Qty: 90 1RF nystatin 100,000 unit/gram powder 1 appl topical BID 0RF Rx Instructions: application to affected area twice a day Eliquis 2.5 mg tablet 2.5 mg PO BID Qty: 180 2RF cholecalciferol (vitamin D3) 50 mcg (2,000 unit) Capsule 2,000 unit PO DAILY 0RF memantine [Namenda XR] 21 mg Capsule,Sprinkle,Er 24hr 21 mg PO DAILY 0RF albuterol sulfate [ProAir HFA] 90 mcg/actuation HFA aerosol inhaler 2 puff INHALATION Q6H PRN (Reason: Wheezing) 0RF rivastigmine tartrate 6 mg capsule 6 mg PO BID 0RF meclizine 12.5 mg tablet 25 mg PO NEEDED 0RF isosorbide mononitrate 60 mg tablet extended release 24 hr 1 tab PO DAILY 0RF acetaminophen 325 mg Tablet 650 mg PO Q4H PRN (Reason: Headache) 0RF nitroglycerin 0.4 mg tablet, sublingual 0.4 mg sublingual Q5M PRN (Reason: chest pain) 30 Days Qty: 30 5RF Rx Instructions: do not exceed 3 doses per episode amiodarone 200 mg tablet 200 mg PO DAILY 90 Days Qty: 90 3RF omeprazole 20 mg capsule,delayed release(DR/EC) 20 mg PO DAILY Qty: 90 1RF calcitriol 0.25 mcg capsule 0.25 mcg PO 3XW 90 Days Qty: 39 3RF atorvastatin 20 mg tablet 20 mg PO DAILY Qty: 90 3RF hydralazine 100 mg tablet 100 mg PO BID Qty: 180 1RF pregabalin 50 mg capsule 50 mg PO TID 90 Days Qty: 270 0RF amlodipine 5 mg tablet 10 mg PO DAILY 90 Days Qty: 180 3RF Incruse Ellipta 62.5 mcg/actuation blister with device 1 inh inhalation BEDTIME 0RF Discharge Orders: Discharge Order (Routine); Ordered 07/06/21 Ordered By: Stephanie Hills Diet: advance to usual diet and low fat, low cholesterol Activity on Discharge: As tolerated Stand Alone Forms: Patient Portal Discharge page Other Ambulatory Orders: Basic Metabolic Panel (Routine) Timeframe: [id number] Facility: [facility] - Location: Laboratory Ordered By: Stephanie Hills Activity Restrictions/Additional Instructions: Take your medications as prescribed. If you were prescribed antibiotics today, it is important that you take your medication to their entirety, do not skip any doses, do not finish them early. Today you tested positive for COVID-19. Take Ibuprofen or Tylenol as needed for fevers or body aches. Care Plan Goals: patient came with scalp hematoma, and occipital fracture -status post fall 3-4 weeks back - patient anemia required transfusion, received 2 PRBC. Hemoglobin is stable around 9, fecal occult blood negative x2. discussed with Cardiology and surgery- hold off anticoagulation for 5 days and repeat H&H before starting Eliquis. Patient was seen by surgery for scalp hematoma and occipital fracture-no acute intervention required except transfusion as above. Further management out patiently, patient may benefit from outpatient pcp follow-up out patiently upon discharge from rehab. Health Concerns: as above. Plan of Treatment: as above. Assessment: as above.
--- NOTE | 2021-07-06 11:47 | P.PNNP_ITS ---
Subjective Subjective Date of Service: 07/06/21 Principal diagnosis: LINDA, NSTEMI, CHF Interval history: Events noted. All recent data reviewed. D/W Hospitalist Physical Exam Verdana 4l Vital Signs: Verdana 4d Verdana 4d Vital Signs: Verdana 4d Verdana 4Bd Last Vital Signs Verdana 4d Railroad Shop Inspector New 4d Railroad Shop Inspector New 4d Temp 98.8 F 07/06/21 11:01 Railroad Shop Inspector New 4d Pulse 60 07/06/21 11:01 Railroad Shop Inspector New 4d Resp 16 07/06/21 11:01 BP 120/67 07/06/21 11:01 Pulse Ox 98 07/06/21 11:01 BMI result Body Mass Index 31.6 Const: General: no acute distress Eyes: EOM: EOMs intact bilaterally Resp: Auscultation: diminished lung sounds Cardio: Rate: regular rate GI: Palpation (GI): Soft to palpation Neuro: General: moves all extremities Objective Data Labs CBC & Chem 7: 07/05/21 06:01 07/06/21 05:34 Labs: Laboratory Results - last 24 hr 07/06/21 07/06/21 05:34 05:34 Creatinine 3.19 H Estim Creat Clear Calc 12.4 Estimated GFR 14 Random Vancomycin 15.6 Microbiology Microbiology Results: Microbiology 06/30/21 06:02 Blood - Venous Blood Culture - Final No growth after 5 days. 06/30/21 05:55 Blood - Venous Blood Culture - Final No growth after 5 days. 06/23/21 09:58 Blood - Venous Blood Culture - Final No growth after 5 days. 06/23/21 09:58 Blood - Venous Blood Culture - Final No growth after 5 days. 06/20/21 11:28 Blood - Venous Blood Culture - Final No growth after 5 days. 06/22/21 Unknown Urine clean catch - Urine lutz top Urine Culture - Final Klebsiella pneumoniae 06/20/21 13:51 Blood - Venous Blood Culture - Final Methicillin Res Staph Aureus Procedures Date of Service Date of Service: 07/06/21 Assessment & Plan Assessment and plan (1) Acute renal failure: Status: Acute Assessment and Plan: LINDA due to compromise in renal perfusion Serum creatinine improving C/W current supportive management Shall arrange close office follow up if D/Aj Time Spent With Patient Time: Total time spent is greater than 50% in coordination of care (as documented) at patient's floor/unit and/or counseling patient: Progress Note: Quality Stroke Does the patient have a stroke diagnosis?: No
[2021-07-06 13:02] VITALS: BP 120/67; PULSE 60; O2SAT 98
--- NOTE | 2021-07-06 13:10 | MHC.CLN ---
F/U PO INTAKE 50% AVG. DIET RX: CARDIAC GRD M/S WITH 1500ML FLUID RESTRICTION-APPROPRIATE PT RECEIVING ENSURE BID TO INCREASE KCALS AND PROMOTE WOUND HEALING SUPP TO PROVIDE 700KCALS, 40G PROTEIN CONTINUE TO MONITOR PO INTAKE CLOSELY
--- NOTE | 2021-07-06 13:12 | MHC.SLORD ---
Speech Language Pathology Order Status: MEDICAL INSTRUMENT TECHNICIAN attempted to see patient this morning for dysphagia treatment. Patient with nursing staff, unavailable. MEDICAL INSTRUMENT TECHNICIAN to return later this afternoon if schedule allows- otherwise, plan for f/u tomorrow. Patient is on ground/[facility] altered (NDD2) solids and thin liquids, crushed pills.
--- NOTE | 2021-07-14 09:38 | P.CDIR_ITS ---
Documented by User: Julia Garcia RN 07/14/21 09:42 Retrospective Query PHYSICIAN'S DOCUMENTATION REQUEST Date of Query: 07/14/21937 Patient Name: Patricia York Admit Date: 06/23/21 Dear Doctor, A review of the medical record indicates additional documentation may be needed. Please review below and update the documentation accordingly. Risk Factors/Clinical Indicators/Treatments On Elaquis Bleeding from scalp wound from fall one month ago. Scalp laceration with mass that fell off when area was cleansed. Area sutured Per surgery: observe off anti-coagulant Per H&P: Hematoma head, Head injury due to trauma Based on the above, please clarify in the Progress Notes if there is an associated link between the anticoagulant and the documented bleeding: * Bleeding likely related to anticoagulant * Bleeding is not likely related to anticoagulant * Other (please specify) * Unable to determine Use of terms such as suspected, likely, concern for, or probable (associated with a specific diagnosis that is being evaluated, monitored, or treated as if it exists) are acceptable and can be coded in the inpatient setting, when documented at the time of discharge. Thank you, Julia Garcia RN Extension: [phone] Please use your independent medical judgment in providing your response. THIS QUERY IS PART OF THE PERMANENT MEDICAL RECORD Documented by User: Stephanie Hills NP 07/14/21 13:33 Retrospective Query Provider Response: Other (Bleeding not related to anticoagulation )
== END 2021-07-06 15:30 | DRG 811 ==
LOC: HO.ED 06-21 06:19 → HO.EDOVER 06-21 06:31 → HO.IMC 06-24 17:03
PROVIDERS: Family Medicine; Hospitalist; Internal Medicine; Internal Medicine Endocrinology, Diabetes & Metabolism; Internal Medicine Nephrology; Physician Assistant; Physician Assistant Medical; Radiology Diagnostic Radiology; Admitting Provider Internal Medicine; Emergency Provider Emergency Medicine Emergency Medical Services; PCP Internal Medicine; Visit Provider Nurse Practitioner Acute Care
PROC: 02HV33Z Insertion of Infusion Device into Superior Vena Cava, Percutaneous Approach (ICD-10-PCS; principal; 2021-06-26 08:30)
DX: D62 Acute posthemorrhagic anemia (principal); U07.1 COVID-19; N17.0 Acute kidney failure with tubular necrosis; J96.01 Acute respiratory failure with hypoxia; J69.0 Pneumonitis due to inhalation of food and vomit; I50.33 Acute on chronic diastolic (congestive) heart failure; I21.4 Non-ST elevation (NSTEMI) myocardial infarction; G92.8 Other toxic encephalopathy; S02.119A Unspecified fracture of occiput, initial encounter for closed fracture; N18.4 Chronic kidney disease, stage 4 (severe); R78.81 Bacteremia; I13.0 Hypertensive heart and chronic kidney disease with heart failure and stage 1 through stage 4 chronic kidney disease, or unspecified chronic kidney disease; S01.01XA Laceration without foreign body of scalp, initial encounter; B95.62 Methicillin resistant Staphylococcus aureus infection as the cause of diseases classified elsewhere; D69.6 Thrombocytopenia, unspecified; E87.5 Hyperkalemia; E11.22 Type 2 diabetes mellitus with diabetic chronic kidney disease; I48.0 Paroxysmal atrial fibrillation; W18.30XA Fall on same level, unspecified, initial encounter; Z95.2 Presence of prosthetic heart valve; Z87.891 Personal history of nicotine dependence; Z79.01 Long term (current) use of anticoagulants; Z79.899 Other long term (current) drug therapy; Z66 Do not resuscitate
CPT/HCPCS: 36415; 36430; 36558; 36600; 70450; 71045; 71250; 72125; 76937; 80048; 80053; 80076; 80202; 81001; 82140; 82272; 82565; 82803; 83605; 83735; 83880; 84484; 85014; 85018; 85025; 85027; 85610; 85730; 86021; 86850; 86870; 86900; 86901; 86902; 86905; 86920; 86922; 87040; 87077; 87086; 87088; 87186; 87205; 87635; 88304; 92507; 92610; 93005; 93306; 93308; 94640; 96360; 96361; 97116; 97162; 97530; 99152; 99218; 99285; C1751; C1769; J1100; J1940; J2185; J2270; J2405; J3370; P9016; Q9957

== ENCOUNTER 2021-08-03 05:38 | Outpatient (REF) | payer SELFPAY | END 2021-08-03 05:39 | disposition home or self-care (01) | LOC: HO.MMNH1L 05:38 | PROVIDERS: Visit Provider Family Medicine | DX: Z13.89 Encounter for screening for other disorder (principal) ==